=== PATIENT | male | born 1960 | race Caucasian/White ===

== ENCOUNTER 2016-10-09 14:11 | Emergency (ER) | payer OTHER ==
[~2016-10-09] VITALS: Ht 180.3 cm; Wt 71.0 kg
[~2016-10-09 14:11] MED LIST: ALPR.5 PO; ASPI81 PO; BACI500O9 TOP; CLIN150 PO; FERR300S PEG; MVI5UDC OG; NADO1TAB16 PO; SPIR25 PO
[2016-10-09 14:14] VITALS: BP 100/59; PULSE 80; RESP 16; TEMP 98.2; O2SAT 100
[2016-10-09 15:06] VITALS: BP 103/59; PULSE 74; RESP 17; O2SAT 99
[2016-10-09] MEDS ORDERED: SODIUM CHLORIDE 0.9% FLUSH 5 ML FLUSH IVF PRN (15:15)
[2016-10-09 15:19] LABS: BASOPHIL % 0.7 % (0.0-2.0); EOSINOPHIL # 0.2 TH/MM3 (0-0.4); HEMO FLAGS DIFF FINAL; LYMPH % 11.3 % (9.0-44.0); LYMPHOCYTE # 0.8 TH/MM3 (1.0-4.8); MEAN CORPUSCULAR HEMOGLOBIN 31.1 PG (27.0-34.0); MEAN CORPUSCULAR HGB CONC 34.6 % (32.0-36.0); PLATELET COUNT 155 TH/MM3 (150-450); RED CELL DISTRIBUTION WIDTH 14.7 % (11.6-17.2)
[2016-10-09] MEDS ORDERED: HYDR-3133 PO (15:44)
[2016-10-09] MEDS ORDERED: ATEN25TA PO (15:44)
[2016-10-09] MEDS ORDERED: FOLI1TAB4 PO (15:44)
[2016-10-09] MEDS ORDERED: FURO1TAB62 PO (15:44)
[2016-10-09] MEDS ORDERED: ALPR0.5T3 PO (15:44)
[2016-10-09 15:49] LABS: ALKALINE PHOSPHATASE 89 U/L (45-117); TOTAL BILIRUBIN ADULT 0.8 MG/DL (0.2-1.0)
[2016-10-09 15:50] LABS: ALT (GPT) 23 U/L (12-78); ANION GAP 6 MEQ/L (5-15); AST (GOT) 49 U/L (15-37); BICARBONATE 24.7 MEQ/L (21.0-32.0); BLOOD UREA NITROGEN 16 MG/DL (7-18); CHLORIDE 102 MEQ/L (98-107); GLOMERULAR FILTRATION RATE 86 ML/MIN (>89); SODIUM (NA) 133 MEQ/L (136-145)
[2016-10-09 15:53] LABS: POTASSIUM 4.6 MEQ/L (3.5-5.1)
[2016-10-09] MEDS ORDERED: ASPI1TAB69 PO (16:03)
[2016-10-09] MEDS ORDERED: IOHEXOL 350 MG/ML 10 ML VIAL (for RAD DIAG) IV ONE (16:54)
[2016-10-09 17:30] VITALS: BP 99/60; PULSE 72; RESP 19; O2SAT 97
--- NOTE | 2016-10-09 17:51 | RADRPT ---
EXAM DATE/TIME: 10/09/2016 16:31 [facility] COMPARISON: CT ABDOMEN & PELVIS W CONTRAST, April 09, 2014, 16:03. INDICATIONS : Abdominal pain. IV CONTRAST: 100 cc Omnipaque 350 mgI/ml IV ORAL CONTRAST: None RADIATION DOSE: 9.96 CTDIvol (mGy) MEDICAL HISTORY : Stroke. Seizure. Cardiac. Hypertension. SURGICAL HISTORY : G-tube ENCOUNTER: Initial ACUITY: 1 day PAIN SCALE: 5/10 LOCATION: Bilateral abdomen TECHNIQUE: Volumetric scanning of the abdomen and pelvis was performed. Using automated exposure control and adjustment of the mA and/or kV according to patient size, radiation dose was kept as low as reasonably achievable to obtain optimal diagnostic quality images. FINDINGS: There are cirrhotic changes at the liver. There is a recanalized periumbilical vein present. There is a moderate amount of ascites seen throughout the peroneal cavity. The spleen, pancreas, adrenal g lands and kidneys appear unremarkable. There are calcified gallstones in the gallbladder. There does appear to be a hernia in the left upper quadrant. This appears to contain mesenteric fat. There is some induration within the fat in this region. There are some small foci of air seen with in this hernia sac. Bowel in this hernia sac is not clearly identified. The etiology of the air is not known. The remaining aspect of the anterior abdominal wall appears intact. Varices are seen brandin und the distal esophagus. Varices are seen in the upper abdomen. The bowel is grossly unremarkable. The ascites does extend into the inguinal regions especially on the left. There is some degenerati ve change in the lumbar spine. Prostatic calcifications are persent. The lung bases are clear. CONCLUSION: 1. Hernia in the left upper quadrant which appears to contain mesenteric fat. There are some small foci of air. The source of the air is not clearly seen. Some degree of inflammatory change and infe ction could result in the air. Any recent intervention or communication with the skin could also be suspected. The bowel is grossly unremarkable. Bowel is not seen within this hernia. The skin does appear thickened over this region. 2. Cirrhotic liver with portal hypertension and varices. 3. Moderate ascites. Mushtaq Travis MD on October 09, 2016 at 17:01 Board Certified Radiologist. This report was verified electronically.
[2016-10-09] MEDS ORDERED: BACT800T5 PO (18:31)
--- NOTE | 2016-10-09 18:31 | PD ---
HPI Chief Complaint: GI Complaint Time Seen by Provider: 14:46 Travel History International Travel<30 days: No Contact w/Intl Traveler<30days: No Traveled to known affect area: No History of Present Illness HPI Patient is a 66-year-old male who comes in because of leakage of fluids from his G-tube site. He had a G-tube placed during an admission between July 2015 through September 2015. The tube has been removed since January. He has history of ascites, and has a paracentesis about every 3 weeks. He is having issues with leakage of fluids with the changing size of his abdomen before and after paracentesis. He was seen at [facility] yesterday and was discharged with prescription for Keflex. He came in because he is concerned he is losing too much fluid from the site. He is not having any abdominal pain. He has not had fever or chills. PFSH Past Medical History Arthritis: Yes Asthma: No Atrial Fibrillation: Yes Heart Rhythm Problems: No Cancer: No Cardiovascular Problems: Yes (A-FIB / HTN) High Cholesterol: No Chest Pain: No Congestive Heart Failure: No COPD: No Diabetes: No Diminished Hearing: No Endocrine: No Gastrointestinal Disorders: Yes GERD: Yes Genitourinary: No Hiatal Hernia: No Immune Disorder: No Musculoskeletal: Yes Neurologic: Yes Psychiatric: No Reproductive: No Respiratory: Yes Migraines: No Seizures: Yes (R/T ETOH WITHDRAWL) Sleep Apnea: Yes Thyroid Disease: No Ulcer: No Tetanus Vaccination: Unknown Influenza Vaccination: No Past Surgical History Abdominal Surgery: Yes Other Surgery: Yes (tracheostomy- GTUBE placed and removed) Social History Alcohol Use: No (quit) Tobacco Use: No Substance Use: No Allergies-Medications (Allergen,Severity, Reaction): Coded Allergies: No Known Allergies (Unverified , 10/09/16) Reported Meds & Prescriptions Reported Meds & Active Scripts Active Bactrim DS (Sulfamethoxazole-Trimethoprim) 800-160 Mg Tab 1 Tab PO BID Reported Aspirin 81 Mg Tabdr 81 Mg PO DAILY Atenolol 25 Mg Tab 25 Mg PO DAILY Lasix (Furosemide) 20 Mg Tab 20 Mg PO DAILY Hydroxyzine HCl 25 Mg Tab 25 Mg PO DAILY Alprazolam 0.5 Mg Tab 0.5 Mg PO DAILY PRN Folate (Folic Acid) 1 Mg Tab 1 Mg PO DAILY Review of Systems Except as stated in HPI: all other systems reviewed are Neg General / Constitutional: No: Fever, Chills HENT: No: Headaches, Lightheadedness Cardiovascular: No: Chest Pain or Discomfort Respiratory: No: Shortness of Breath Gastrointestinal: No: Nausea, Vomiting, Abdominal Pain Musculoskeletal: No: Myalgias Skin: Positive Lesions, No Rash Neurologic: No: Weakness, Dizziness Physical Exam Narrative GENERAL: Awake and alert in no acute distress. SKIN: Warm and dry. Raised area of erythema surrounding former G-tube site. There is a very small opening with small amount of fluid leaking from the site. No pus drainage. HEAD: Atraumatic. Normocephalic. EYES: Pupils equal and round. No scleral icterus. ENT: Mucous membranes pink and moist. NECK: Trachea midline. No JVD. CARDIOVASCULAR: Regular rate and rhythm. No murmur appreciated. RESPIRATORY: No accessory muscle use. Clear to auscultation. Breath sounds equal bilaterally. GASTROINTESTINAL: Abdomen soft, non-tender, nondistended. Umbilical hernia present, nontender to palpation. MUSCULOSKELETAL: No obvious deformities. No clubbing. No cyanosis. No edema. NEUROLOGICAL: Awake and alert. No obvious cranial nerve deficits. Motor grossly within normal limits. Normal speech. PSYCHIATRIC: Appropriate mood and affect; insight and judgment normal. Data Data Last Documented VS Vital Signs Date Time Temp Pulse Resp B/P Pulse Ox O2 Delivery O2 Flow Rate FiO2 10/09/16 18:56 71 18 124/72 97 10/09/16 17:30 Room Air 10/09/16 14:14 98.2 Orders Complete Blood Count With Diff (10/09/16 15:03) Comprehensive Metabolic Panel (10/09/16 15:03) Ct Abd/Pel W Iv Contrast(Rout) (10/09/16 15:03) Sodium Chloride 0.9% Flush (Ns Flush) (10/09/16 15:15) Iohexol 350 Inj (Omnipaque 350 Inj) (10/09/16 16:54) Labs Laboratory Tests Test 10/09/16 15:10 White Blood Count 7.0 TH/MM3 Red Blood Count 4.00 MIL/MM3 Hemoglobin 12.5 GM/DL Hematocrit 36.0 % Mean Corpuscular Volume 90.0 FL Mean Corpuscular Hemoglobin 31.1 PG Mean Corpuscular Hemoglobin 34.6 % Concent Red Cell Distribution Width 14.7 % Platelet Count 155 TH/MM3 Mean Platelet Volume 8.6 FL Neutrophils (%) (Auto) 71.0 % Lymphocytes (%) (Auto) 11.3 % Monocytes (%) (Auto) 14.0 % Eosinophils (%) (Auto) 3.0 % Basophils (%) (Auto) 0.7 % Neutrophils # (Auto) 5.0 TH/MM3 Lymphocytes # (Auto) 0.8 TH/MM3 Monocytes # (Auto) 1.0 TH/MM3 Eosinophils # (Auto) 0.2 TH/MM3 Basophils # (Auto) 0.0 TH/MM3 CBC Comment DIFF FINAL Differential Comment Sodium Level 133 MEQ/L Potassium Level 4.6 MEQ/L Chloride Level 102 MEQ/L Carbon Dioxide Level 24.7 MEQ/L Anion Gap 6 MEQ/L Blood Urea Nitrogen 16 MG/DL Creatinine 0.91 MG/DL Estimat Glomerular Filtration 86 ML/MIN Rate Random Glucose 98 MG/DL Calcium Level 7.7 MG/DL Total Bilirubin 0.8 MG/DL Aspartate Amino Transf 49 U/L (AST/SGOT) Alanine Aminotransferase 23 U/L (ALT/SGPT) Alkaline Phosphatase 89 U/L Total Protein 6.0 GM/DL Albumin 1.7 GM/DL [facility] Medical Decision Making Medical Screen Exam Complete: Yes Emergency Medical Condition: Yes Medical Record Reviewed: Yes Differential Diagnosis Cellulitis versus abscess versus fistula Narrative Course Patient is a 56-year-old male comes in due to leakage from a former G-tube site. Exam shows erythema around the site with a very small opening and scant amount of fluid leaking. IV established, labs sent. Labs show no acute abnormalities. CT of the abdomen and pelvis show some air in that area, likely due to the opening in his skin. There are no other acute abnormalities. I spoke with Dr. Cruz of GI, who says there is nothing really to do about the leakage of fluids. He suggested trying Steri-Strips. I placed Steri- Strips over the wound, and bandaged it. Patient already has a prescription for Keflex. I will add a prescription for Bactrim to cover any MRSA. Patient advised follow-up with wound care and his doctor for further management. Advised to return to the ED as needed for any worsening symptoms. Diagnosis Primary Impression: Cellulitis Qualified Code: L03.311 - Cellulitis of abdominal wall Additional Impression: Drainage from gastrostomy tube site Patient Instructions: Cellulitis (ED), General Instructions Additional Instructions: Follow up with wound care. Follow up with your doctors. Take all of your antibiotics. Return to the ED as needed for any worsening symptoms. Scripts Sulfamethoxazole-Trimethoprim (Bactrim DS)800-160 Mg Tab1 Tab PO BID #14 TAB Ref 0 Prov:Bess Valiente MD 10/09/16 Disposition: 01 DISCHARGE HOME Condition: Stable Bess Valiente MD Oct 09, 2016 18:31
[2016-10-09 18:56] VITALS: BP 124/72
== END 2016-10-09 18:57 | disposition home or self-care (01) ==
LOC: NEPA 14:11
DX: L03.311 Cellulitis of abdominal wall (principal); R23.8 Other skin changes; L53.9 Erythematous condition, unspecified; I10 Essential (primary) hypertension; I48.91 Unspecified atrial fibrillation; G47.30 Sleep apnea, unspecified; Z98.890 Other specified postprocedural states; Z87.39 Personal history of other diseases of the musculoskeletal system and connective tissue; Z87.19 Personal history of other diseases of the digestive system; Z86.69 Personal history of other diseases of the nervous system and sense organs; Z87.09 Personal history of other diseases of the respiratory system
CPT/HCPCS: 74177; 80053; 85025; 99283; Q9967

== ENCOUNTER 2016-12-06 10:09 | Emergency (ER) | payer OTHER ==
[~2016-12-06] VITALS: Ht 180.3 cm; Wt 73.6 kg
[~2016-12-06 10:09] MED LIST changes: -ALPR.5 PO; +ALPR0.5T3 PO; +ASPI1TAB69 PO; -ASPI81 PO; +ATEN25TA PO; -BACI500O9 TOP; +BACT800T5 PO; -CLIN150 PO; -FERR300S PEG; +FOLI1TAB4 PO; +FURO1TAB62 PO; +HYDR-3133 PO; -MVI5UDC OG; -NADO1TAB16 PO; -SPIR25 PO
[2016-12-06 10:11] VITALS: BP 135/70; PULSE 70; RESP 24; TEMP 97.5; O2SAT 98
--- NOTE | 2016-12-06 10:35 | PD ---
HPI Chief Complaint: Ascites Time Seen by Provider: 10:24 Travel History International Travel<30 days: No Contact w/Intl Traveler<30days: No Traveled to known affect area: No History of Present Illness HPI 56yo M with PMH of ascites presents to the ED requesting paracentesis. Pt gets paracentesis every 3 weeks for his ascites and usually goes to [facility]. States last time he went was 3 weeks ago and he did not like it because they changed their policy and left about 30% of fluid there. Denies any fever, n/v, chest pain, sob, abdominal pain, focal weakness or numbness. PFSH Past Medical History Arthritis: Yes Asthma: No Atrial Fibrillation: Yes Heart Rhythm Problems: No Cancer: No Cardiovascular Problems: Yes (A-FIB / HTN) High Cholesterol: No Chest Pain: No Congestive Heart Failure: No COPD: No Diabetes: No Diminished Hearing: No Endocrine: No Gastrointestinal Disorders: Yes GERD: Yes Genitourinary: No Hiatal Hernia: No Immune Disorder: No Musculoskeletal: Yes Neurologic: Yes Psychiatric: No Reproductive: No Respiratory: Yes Migraines: No Seizures: Yes (R/T ETOH WITHDRAWL) Sleep Apnea: Yes Thyroid Disease: No Ulcer: No Past Surgical History Abdominal Surgery: Yes Other Surgery: Yes (tracheostomy- GTUBE placed and removed) Social History Alcohol Use: No (quit) Tobacco Use: No Substance Use: No Allergies-Medications (Allergen,Severity, Reaction): Coded Allergies: No Known Allergies (Unverified , 12/06/16) Reported Meds & Prescriptions Reported Meds & Active Scripts Active Bactrim DS (Sulfamethoxazole-Trimethoprim) 800-160 Mg Tab 1 Tab PO BID Reported Aspirin 81 Mg Tabdr 81 Mg PO DAILY Atenolol 25 Mg Tab 25 Mg PO DAILY Lasix (Furosemide) 20 Mg Tab 20 Mg PO DAILY Hydroxyzine HCl 25 Mg Tab 25 Mg PO DAILY Alprazolam 0.5 Mg Tab 0.5 Mg PO DAILY PRN Folate (Folic Acid) 1 Mg Tab 1 Mg PO DAILY Review of Systems Except as stated in HPI: all other systems reviewed are Neg Physical Exam Narrative GENERAL: 56yo M not in distress. SKIN: Warm and dry. HEAD: Atraumatic. Normocephalic. CARDIOVASCULAR: Regular rate and rhythm. No murmur appreciated. RESPIRATORY: No accessory muscle use. Clear to auscultation. Breath sounds equal bilaterally. GASTROINTESTINAL: Abdomen soft, distended. +epigastric and periumbilical hernia , both soft and reducible. No tenderness to palpation. No rebound tenderness or guarding. MUSCULOSKELETAL: No obvious deformities. No clubbing. No cyanosis. No edema. NEUROLOGICAL: Awake and alert. No obvious cranial nerve deficits. Motor grossly within normal limits. Normal speech. PSYCHIATRIC: Appropriate mood and affect; insight and judgment normal. Data Data Last Documented VS Vital Signs Date Time Temp Pulse Resp B/P Pulse Ox O2 Delivery O2 Flow Rate FiO2 12/06/16 10:11 97.5 70 24 135/70 98 Room Air Orders Complete Blood Count With Diff (12/06/16 10:34) Basic Metabolic Panel (Bmp) (12/06/16 10:34) Prothrombin Time / Inr (Pt) (12/06/16 10:34) Act Partial Throm Time (Ptt) (12/06/16 10:34) Labs Laboratory Tests Test 12/06/16 12/06/16 10:20 10:50 Sodium Level 137 MEQ/L Potassium Level 4.1 MEQ/L Chloride Level 104 MEQ/L Carbon Dioxide Level 26.7 MEQ/L Anion Gap 6 MEQ/L Blood Urea Nitrogen 10 MG/DL Creatinine 0.98 MG/DL Estimat Glomerular Filtration 79 ML/MIN Rate Random Glucose 160 MG/DL Calcium Level 8.1 MG/DL White Blood Count 4.0 TH/MM3 Red Blood Count 3.94 MIL/MM3 Hemoglobin 11.8 GM/DL Hematocrit 34.6 % Mean Corpuscular Volume 87.9 FL Mean Corpuscular Hemoglobin 29.9 PG Mean Corpuscular Hemoglobin 34.0 % Concent Red Cell Distribution Width 14.1 % Platelet Count 163 TH/MM3 Mean Platelet Volume 8.7 FL Neutrophils (%) (Auto) 62.4 % Lymphocytes (%) (Auto) 16.5 % Monocytes (%) (Auto) 11.7 % Eosinophils (%) (Auto) 8.6 % Basophils (%) (Auto) 0.8 % Neutrophils # (Auto) 2.5 TH/MM3 Lymphocytes # (Auto) 0.7 TH/MM3 Monocytes # (Auto) 0.5 TH/MM3 Eosinophils # (Auto) 0.3 TH/MM3 Basophils # (Auto) 0.0 TH/MM3 CBC Comment DIFF FINAL Differential Comment Prothrombin Time 10.7 SEC Prothromb Time International 1.0 RATIO Ratio Activated Partial 26.2 SEC Thromboplast Time MDM Medical Decision Making Medical Screen Exam Complete: Yes Emergency Medical Condition: Yes Interpretation(s) Laboratory Tests Test 12/06/16 12/06/16 10:20 10:50 Sodium Level 137 MEQ/L (136-145) Potassium Level 4.1 MEQ/L (3.5-5.1) Chloride Level 104 MEQ/L (98-107) Carbon Dioxide Level 26.7 MEQ/L (21.0-32.0) Anion Gap 6 MEQ/L (5-15) Blood Urea Nitrogen 10 MG/DL (7-18) Creatinine 0.98 MG/DL (0.60-1.30) Estimat Glomerular Filtration 79 ML/MIN (>89) Rate Random Glucose 160 MG/DL (74-106) Calcium Level 8.1 MG/DL (8.5-10.1) White Blood Count 4.0 TH/MM3 (4.0-11.0) Red Blood Count 3.94 MIL/MM3 (4.50-5.90) Hemoglobin 11.8 GM/DL (13.0-17.0) Hematocrit 34.6 % (39.0-51.0) Mean Corpuscular Volume 87.9 FL (80.0-100.0) Mean Corpuscular Hemoglobin 29.9 PG (27.0-34.0) Mean Corpuscular Hemoglobin 34.0 % Concent (32.0-36.0) Red Cell Distribution Width 14.1 % (11.6-17.2) Platelet Count 163 TH/MM3 (150-450) Mean Platelet Volume 8.7 FL (7.0-11.0) Neutrophils (%) (Auto) 62.4 % (16.0-70.0) Lymphocytes (%) (Auto) 16.5 % (9.0-44.0) Monocytes (%) (Auto) 11.7 % (0.0-8.0) Eosinophils (%) (Auto) 8.6 % (0.0-4.0) Basophils (%) (Auto) 0.8 % (0.0-2.0) Neutrophils # (Auto) 2.5 TH/MM3 (1.8-7.7) Lymphocytes # (Auto) 0.7 TH/MM3 (1.0-4.8) Monocytes # (Auto) 0.5 TH/MM3 (0-0.9) Eosinophils # (Auto) 0.3 TH/MM3 (0-0.4) Basophils # (Auto) 0.0 TH/MM3 (0-0.2) CBC Comment DIFF FINAL Differential Comment Prothrombin Time 10.7 SEC (9.8-11.6) Prothromb Time International 1.0 RATIO Ratio Activated Partial 26.2 SEC Thromboplast Time (24.3-30.1) Differential Diagnosis Ascites from alcoholic cirrhosis Narrative Course 56yo M with ascites and frequent paracentesis presents to the ED requesting paracentesis. Last paracentesis was 3 weeks ago at [facility]. Pt denies any fever or abdominal pain. He is well appearing with normal VS. Discussed with procedure tech and wrote patient a prescription order. Also made a copy of the order for the motion picture scene builder and gave patient the phone number to schedule outpatient paracentesis. Labs reviewed, no leukocytosis. H/H at baseline. Platelet count normal. Coags normal. Informed pt to call to schedule outpatient paracentesis. Return precautions given. Diagnosis Primary Impression: Ascites Qualified Code: R18.8 - Other ascites Patient Instructions: General Instructions Departure Forms: Tests/Procedures Additional Instructions: Please call [phone] to schedule an outpatient paracentesis. Please bring the order with you. Return to the ED if you have fever, abdominal pain, vomiting or any other concerning symptoms. Med/Other Pt SpecificInfo: No Change to Meds Disposition: 01 DISCHARGE HOME Condition: Stable Beverly Fisherie DO Dec 06, 2016 10:35
[2016-12-06 11:26] LABS: AUTOMATED NEUTROPHIL # 2.5 TH/MM3 (1.8-7.7); BASOPHIL % 0.8 % (0.0-2.0); EOSINOPHIL # 0.3 TH/MM3 (0-0.4); EOSINOPHIL % 8.6 % (0.0-4.0); HEMATOCRIT 34.6 % (39.0-51.0); HEMO FLAGS DIFF FINAL; LYMPH % 16.5 % (9.0-44.0); LYMPHOCYTE # 0.7 TH/MM3 (1.0-4.8); MEAN CELL VOLUME 87.9 FL (80.0-100.0); MEAN CORPUSCULAR HEMOGLOBIN 29.9 PG (27.0-34.0); MONO % 11.7 % (0.0-8.0); NEUT % 62.4 % (16.0-70.0); PLATELET COUNT 163 TH/MM3 (150-450); RED BLOOD COUNT 3.94 MIL/MM3 (4.50-5.90); RED CELL DISTRIBUTION WIDTH 14.1 % (11.6-17.2)
[2016-12-06 11:35] LABS: APTT (PATIENT) 26.2 SEC (24.3-30.1); PROTHROMBIN TIME - PATIENT 10.7 SEC (9.8-11.6)
[2016-12-06 11:43] LABS: BICARBONATE 26.7 MEQ/L (21.0-32.0); POTASSIUM 4.1 MEQ/L (3.5-5.1)
== END 2016-12-06 12:34 | disposition home or self-care (01) ==
LOC: NEPA 10:09
DX: R18.8 Other ascites (principal); I48.91 Unspecified atrial fibrillation; I10 Essential (primary) hypertension
CPT/HCPCS: 80048; 85025; 85610; 85730; 99283

== ENCOUNTER 2016-12-07 09:01 | Emergency (ER) | payer OTHER ==
[~2016-12-07] VITALS: Ht 180.3 cm; Wt 73.0 kg
[2016-12-07 09:02] VITALS: BP 128/82; PULSE 76; RESP 16; TEMP 98; O2SAT 97
[2016-12-07 09:17] VITALS: BP 132/79; PULSE 66; RESP 16; O2SAT 100
--- NOTE | 2016-12-07 09:24 | PD ---
HPI Chief Complaint: GI Complaint Time Seen by Provider: 09:10 Travel History International Travel<30 days: No Contact w/Intl Traveler<30days: No Traveled to known affect area: No History of Present Illness HPI The patient is a 56-year-old male who presents to the emergency department for paracentesis. The patient has a history of cirrhosis with ascites. The patient was seen in emergency department yesterday and provided a prescription for outpatient paracentesis, however, he did not call to make an appointment. Patient does complain of increased abdominal swelling, distention , and pain. He does note a history of prior umbilical hernia as well as previous G-tube placement, with swelling secondary to the ascites. He denies any fever, chills, or sweats. The patient does not currently have a primary physician and is not followed on an outpatient basis by supply chain project manager. The patient's symptoms are moderate, exacerbated by history of cirrhosis secondary to chronic alcohol abuse, and alleviated in the past with paracentesis. PFSH Past Medical History Arthritis: Yes Asthma: No Atrial Fibrillation: Yes Heart Rhythm Problems: No Cancer: No Cardiovascular Problems: Yes (A-FIB / HTN) High Cholesterol: No Chest Pain: No Congestive Heart Failure: No COPD: No Diabetes: No Diminished Hearing: No Endocrine: No Gastrointestinal Disorders: Yes GERD: Yes Genitourinary: No Headaches: No Hiatal Hernia: No Hypertension: No Immune Disorder: No Implanted Vascular Access Dvce: No Musculoskeletal: Yes Neurologic: Yes Psychiatric: No Reproductive: No Respiratory: Yes Immunizations Current: No Migraines: No Seizures: Yes (R/T ETOH WITHDRAWL) Sleep Apnea: Yes Thyroid Disease: No Ulcer: No Past Surgical History Abdominal Surgery: Yes Other Surgery: Yes (tracheostomy- GTUBE placed and removed) Social History Alcohol Use: No (quit) Tobacco Use: No Substance Use: No Allergies-Medications (Allergen,Severity, Reaction): Coded Allergies: No Known Allergies (Unverified , 12/06/16) Reported Meds & Prescriptions Reported Meds & Active Scripts Active Reported Aspirin 81 Mg Tabdr 81 Mg PO DAILY Atenolol 25 Mg Tab 25 Mg PO DAILY Lasix (Furosemide) 20 Mg Tab 20 Mg PO DAILY Hydroxyzine HCl 25 Mg Tab 25 Mg PO DAILY Folate (Folic Acid) 1 Mg Tab 1 Mg PO DAILY Review of Systems Except as stated in HPI: all other systems reviewed are Neg General / Constitutional: No: Fever Cardiovascular: No: Chest Pain or Discomfort Respiratory: No: Shortness of Breath Gastrointestinal: Positive: Abdominal Pain (as noted in the history of present illness), No: Nausea, Vomiting Musculoskeletal: Positive: Edema Physical Exam Narrative GENERAL: Awake, alert, 56-year-old male who appears his stated age and is in no acute respiratory distress. SKIN: Warm and dry. HEAD: Atraumatic. Normocephalic. EYES: No injection or drainage. ENT: No nasal bleeding or discharge. Mucous membranes pink and moist. NECK: Trachea midline. No JVD. CARDIOVASCULAR: Regular rate and rhythm. No murmur appreciated. RESPIRATORY: No accessory muscle use. Clear to auscultation. Breath sounds equal bilaterally. GASTROINTESTINAL: Abdomen is distended with positive fluid wave test. Periumbilical hernia with edema. Circular area of swelling in the super aspect of the abdomen from previous G-tube with fluid. MUSCULOSKELETAL: No obvious deformities. No clubbing. No cyanosis. No edema. NEUROLOGICAL: Awake and alert. No obvious cranial nerve deficits. Motor grossly within normal limits. Normal speech. PSYCHIATRIC: Appropriate mood and affect; insight and judgment normal. Data Data Last Documented VS Vital Signs Date Time Temp Pulse Resp B/P Pulse Ox O2 Delivery O2 Flow Rate FiO2 12/07/16 09:17 66 16 132/79 100 Room Air 12/07/16 09:02 98.0 Orders Ed Poc Ultrasound (12/07/16 ) Albumin (12/07/16 09:15) Invasive Rad Dept Consult (12/07/16 ) Labs Laboratory Tests Test 12/07/16 09:27 Albumin 2.1 GM/DL MDM Medical Decision Making Medical Screen Exam Complete: Yes Emergency Medical Condition: Yes Medical Record Reviewed: Yes Interpretation(s) Laboratory Tests Test 12/07/16 09:27 Albumin 2.1 GM/DL Differential Diagnosis Differential diagnoses includes end-stage liver disease, cirrhosis, ascites, hypoalbuminemia, hyponatremia. Narrative Course I reviewed the patient's labs from yesterday, platelets and coags are unremarkable. Albumin level was sent to lab and IV was established. Order was placed for and invasive radiology to perform therapeutic paracentesis if possible. I discussed the patient with interventional radiology, they have set the patient up for an appointment tomorrow at 8 AM at the [facility]. The patient is advised there to be early to register further therapeutic paracentesis. Patient is stable for outpatient paracentesis tomorrow. Diagnosis Primary Impression: Ascites Qualified Code: K70.31 - Ascites due to alcoholic cirrhosis Patient Instructions: General Instructions Additional Instructions: Follow-up with a primary physician and/or supply chain project manager. No alcohol. Monitor sodium intake. Monitor weight. Show up at the registration desk at [facility] tomorrow at 8 AM for outpatient therapeutic paracentesis. Med/Other Pt SpecificInfo: No Change to Meds Disposition: 01 DISCHARGE HOME Condition: Stable Dexter Morales MD Dec 07, 2016 09:24
== END 2016-12-07 10:32 | disposition home or self-care (01) ==
LOC: NEPA 09:01
DX: K70.31 Alcoholic cirrhosis of liver with ascites (principal)
CPT/HCPCS: 82040; 99284

== ENCOUNTER 2016-12-08 07:53 | Day surgery (SDC) | payer OTHER ==
[2016-12-08 09:06] VITALS: BP 118/71; PULSE 72; RESP 16; TEMP 97; O2SAT 98
[2016-12-08 11:20] VITALS: BP 95/60; PULSE 64; RESP 16; TEMP 97.6; O2SAT 98
[2016-12-08 11:45] VITALS: BP 97/61; PULSE 63; RESP 16; O2SAT 98
[2016-12-08] MEDS ORDERED: ALBUMIN HUMAN 25% 75 GM IV ONE (11:45)
[2016-12-08 12:00] VITALS: BP 100/62; PULSE 62; RESP 16; O2SAT 98
[2016-12-08 12:15] VITALS: BP 107/65; PULSE 62; RESP 16; O2SAT 98
--- NOTE | 2016-12-08 12:37 | RADRPT ---
EXAM DATE/TIME: 12/08/2016 08:01 [facility] COMPARISON: US GUIDED ABD PARACENTESIS, September 01, 2015, 10:11. INDICATIONS : Ascites. MEDICAL HISTORY : Hypertension. Gastroesophageal reflux disease. Hernia, umbilical. CVA. Seizures. ETOH withdrawal. Shaista b. Sleep apnea. Dyspnea. Arthritis. SURGICAL HISTORY : Tracheostomy. Gtube placed and removed. Paracentesis. ENCOUNTER: Subsequent ACUITY: 3 months PAIN SCORE: 6/10 LOCATION: Right lower quadrant FLUID: Total volume of 14,050 cc of clear, yellow fluid was removed. Fluid was discarded. Paracentesis was therapeutic only. Post procedure scanning reveals no hematoma or other complication. TECHNIQUE: 1. Ultrasound guidance for abdominal paracentesis. 2. Paracentesis. The risks, benefits, and alternatives to ultrasound guided paracentesis were explained to the patient in detail including the risk of bleeding and infection. Written and verbal informed consent was obt ained. With the patient on the ultrasound table, ultrasound imaging was used to select the most appropriate approach for paracentesis. Overlying skin was prepped and draped in the usual sterile fashion and wi th a local anesthetic, a dermatotomy was made with an 11 blade scalpel. A 6 [place] Gbt-[id number]-[id number] ca theter was introduced into the peritoneal cavity and fluid was collected. The patient tolerated the procedure well and left the ultrasound suite in stable condition. CONCLUSION: Uncomplicated ultrasound guided paracentesis. Corbin Rendon MD on December 08, 2016 at 12:36 Board Certified Radiologist. This report was verified electronically.
== END 2016-12-08 13:30 | disposition home or self-care (01) ==
LOC: HRAD 07:53 → HRIP 07:56 → HRAD 13:30
PROVIDERS: ATTEND Emergency Medicine
DX: R18.8 Other ascites (principal); I10 Essential (primary) hypertension; K21.9 Gastro-esophageal reflux disease without esophagitis; Z86.73 Personal history of transient ischemic attack (TIA), and cerebral infarction without residual deficits; I48.91 Unspecified atrial fibrillation
CPT/HCPCS: 49083; 96365; C1729; P9047

== ENCOUNTER 2016-12-27 08:39 | Emergency (ER) | payer OTHER ==
[2016-12-27] VITALS (7 sets, daily range): BP systolic 117–184; BP diastolic 64–86; PULSE 59–90; RESP 12–16; TEMP 97.5–98.1; O2SAT 95–100
[~2016-12-27] VITALS: Ht 180.3 cm; Wt 72.7 kg
[~2016-12-27 08:39] MED LIST changes: -ALPR0.5T3 PO; -BACT800T5 PO
[2016-12-27] MEDS ORDERED: SODIUM CHLORIDE 0.9% FLUSH 10 ML FLUSH IV FLUSH PRN (09:00)
[2016-12-27 09:40] LABS: APTT (PATIENT) 26.8 SEC (24.3-30.1); PROTHROMBIN TIME - PATIENT 11.2 SEC (9.8-11.6)
--- NOTE | 2016-12-27 09:59 | RADRPT ---
EXAM DATE/TIME: 12/27/2016 09:14 [facility] COMPARISON: CHEST SINGLE AP, September 04, 2015, 19:01. INDICATIONS : Shortness of breath. MEDICAL HISTORY : Hypertension. Stroke. Arthritis. GERD. A-Fib. SURGICAL HISTORY : None. ENCOUNTER: Initial ACUITY: >1 year PAIN SCORE: 0/10 LOCATION: Bilateral chest FINDINGS: A single view of the chest demonstrates the lungs to be symmetrically aerated without evidence of mas s, infiltrate or effusion. The cardiomediastinal contours are unremarkable. Osseous structures are intact. CONCLUSION: No acute disease. Watson Bermeo MD on December 27, 2016 at 9:57 Board Certified Radiologist. This report was verified electronically.
[2016-12-27 10:03] LABS: ALKALINE PHOSPHATASE 105 U/L (45-117); ALT (GPT) 26 U/L (12-78); ANION GAP 6 MEQ/L (5-15); AST (GOT) 66 U/L (15-37); BICARBONATE 25.7 MEQ/L (21.0-32.0); BLOOD UREA NITROGEN 8 MG/DL (7-18); CHLORIDE 105 MEQ/L (98-107); GLOMERULAR FILTRATION RATE 78 ML/MIN (>89); SODIUM (NA) 137 MEQ/L (136-145); TOTAL BILIRUBIN ADULT 0.4 MG/DL (0.2-1.0)
[2016-12-27 10:10] LABS: AUTOMATED NEUTROPHIL # 2.1 TH/MM3 (1.8-7.7); BASOPHIL % 0.9 % (0.0-2.0); EOSINOPHIL # 0.2 TH/MM3 (0-0.4); EOSINOPHIL % 4.6 % (0.0-4.0); HEMATOCRIT 32.1 % (39.0-51.0); HEMO FLAGS DIFF FINAL; LYMPH % 18.3 % (9.0-44.0); LYMPHOCYTE # 0.6 TH/MM3 (1.0-4.8); MEAN CELL VOLUME 86.4 FL (80.0-100.0); MEAN CORPUSCULAR HEMOGLOBIN 29.2 PG (27.0-34.0); MEAN CORPUSCULAR HGB CONC 33.8 % (32.0-36.0); MONO % 16.5 % (0.0-8.0); NEUT % 59.7 % (16.0-70.0); PLATELET COUNT 163 TH/MM3 (150-450); RED BLOOD COUNT 3.71 MIL/MM3 (4.50-5.90); RED CELL DISTRIBUTION WIDTH 14.2 % (11.6-17.2); WHITE BLOOD COUNT 3.5 TH/MM3 (4.0-11.0)
[2016-12-27 10:12] LABS: POTASSIUM 4.5 MEQ/L (3.5-5.1)
[2016-12-27 10:41] LABS: BACTERIA, URINE MOD /hpf; BLOOD, URINE NEG (NEG); CALCIUM OXALATE CRYSTALS,URINE MOD /hpf; COMMENT (UR) CULTURE INDICATED; CULTURE IF INDICATED CULTURE INDICATED; GLUCOSE,URINE NEG (NEG); HYALINE CAST, URINE 2 /lpf (RARE); KETONE, URINE NEG (NEG); MUCUS URINE MANY /lpf (OCC); NITRITE,URINE NEG (NEG); SQUAMOUS EPITHELIAL CELL URINE <1 /hpf (0-5); URINE COLOR DARK-YELLOW (YELLW/STRAW)
--- NOTE | 2016-12-27 11:45 | RADRPT ---
EXAM DATE/TIME: 12/27/2016 11:15 [facility] COMPARISON: CT ABDOMEN & PELVIS W CONTRAST, October 09, 2016, 16:31. INDICATIONS : Evaluate ascites and a soft tissue abdomen wall mass. IV CONTRAST: 70 cc Omnipaque 350 (iohexol) IV ORAL CONTRAST: No oral contrast ingested. RADIATION DOSE: 14.36 CTDIvol (mGy) MEDICAL HISTORY : Cardiovascular disease. Seizures. Cirrhosis.CVA SURGICAL HISTORY : None. ENCOUNTER: Initial ACUITY: 2 days PAIN SCALE: 7/10 LOCATION: Abdoman TECHNIQUE: Volumetric scanning of the abdomen and pelvis was performed. Using automated exposure control and ad justment of the mA and/or kV according to patient size, radiation dose was kept as low as reasonably achievable to obtain optimal diagnostic quality images. FINDINGS: There is a small pericardial effusion, and marked ascites throughout the abdomen and pelvis with abdominal distention. There is fluid extending into the left inguinal canal into the scrotum. Prosta tic calcifications are noted. Urinary bladder unremarkable. There is no evidence of bowel obstruction . Atherosclerotic calcifications of the aorta and iliac vessels are seen. A cirrhotic appearing liver is noted. The portal vein is patent. Mild splenomegaly. There is a ventral hernia containing fat, fl uid and a small amount of transverse colon anterior border. The hernia sac measures 13 x 6 cm in delgado sverse AP dimension. The anterior abdominal wall defect measures 4.5 cm in transverse dimension. The osseous structures demonstrate degenerative changes of the spine. There is atelectasis at the left eleazar ng base. CONCLUSION: 1. Marked amount of ascites is noted with associated abdominal distention. 2. Ventral hernia defect as described above. 3. Atherosclerosis. 4. Cirrhosis. Watson Bermeo MD on December 27, 2016 at 11:41 Board Certified Radiologist. This report was verified electronically.
[2016-12-27] MEDS ORDERED: IOHEXOL 350 MG/ML 10 ML VIAL (for RAD DIAG) IV ONE (11:50)
--- NOTE | 2016-12-27 12:33 | PD ---
HPI Chief Complaint: Abdominal Pain Time Seen by Provider: 08:57 Travel History International Travel<30 days: No Contact w/Intl Traveler<30days: No Traveled to known affect area: No History of Present Illness HPI 56-year-old male complains of abdominal pain, abdominal bloating patient has history of liver cirrhosis with ascites. Patient also has history of umbilical hernia. Patient states that he has increasing the size of the hernia and increased abdominal discomfort and bloating for the past few days. Patient denies any headache. Patient denies any chest pain or shortness of breath. Patient stated he has increasing abdominal discomfort. Patient denies any focal weakness or numbness of the extremity. PFSH Past Medical History Arthritis: Yes Asthma: No Atrial Fibrillation: Yes Heart Rhythm Problems: No Cancer: No Cardiovascular Problems: Yes (A-FIB / HTN) High Cholesterol: No Chest Pain: No Congestive Heart Failure: No Cirrhosis: Yes COPD: No Diabetes: No Diminished Hearing: No Endocrine: No Gastrointestinal Disorders: Yes GERD: Yes Genitourinary: No Headaches: No Hiatal Hernia: No Hypertension: No Immune Disorder: No Implanted Vascular Access Dvce: No Musculoskeletal: Yes Neurologic: Yes Psychiatric: No Reproductive: No Respiratory: Yes Immunizations Current: No Migraines: No Seizures: Yes (R/T ETOH WITHDRAWL) Sleep Apnea: Yes Thyroid Disease: No Ulcer: No Tetanus Vaccination: Unknown Past Surgical History Abdominal Surgery: Yes Other Surgery: Yes (tracheostomy- GTUBE placed and removed) Social History Alcohol Use: No Tobacco Use: No Substance Use: No Allergies-Medications (Allergen,Severity, Reaction): Coded Allergies: No Known Allergies (Unverified , 12/06/16) Reported Meds & Prescriptions Reported Meds & Active Scripts Active No Active Prescriptions or Reported Medications Review of Systems General / Constitutional: No: Fever Eyes: No: Visual changes HENT: No: Headaches Cardiovascular: No: Chest Pain or Discomfort Respiratory: No: Shortness of Breath Gastrointestinal: Positive: Abdominal Pain Genitourinary: No: Dysuria Musculoskeletal: No: Pain Skin: No Rash Neurologic: No: Weakness Psychiatric: No: Depression Endocrine: No: Polydipsia Hematologic/Lymphatic: No: Easy Bruising Physical Exam Narrative GENERAL: Well-nourished, well-developed patient. SKIN: Focused skin assessment warm/dry. HEAD: Normocephalic. EYES: No scleral icterus. No injection or drainage. NECK: Supple, trachea midline. No JVD or lymphadenopathy. CARDIOVASCULAR: Regular rate and rhythm without murmurs, gallops, or rubs. RESPIRATORY: Breath sounds equal bilaterally. No accessory muscle use. GASTROINTESTINAL: The abdomen is distended. Patient has a large soft tissue mass epigastric area and a vehicle hernia. Nontender on palpation. No discharge noted. MUSCULOSKELETAL: No cyanosis, or edema. BACK: Nontender without obvious deformity. No CVA tenderness. Neurologic exam normal. Data Data Last Documented VS Vital Signs Date Time Temp Pulse Resp B/P Pulse Ox O2 Delivery O2 Flow Rate FiO2 12/27/16 19:36 71 16 125/71 99 Room Air 12/27/16 17:44 98.0 Orders Complete Blood Count With Diff (12/27/16 08:58) Comprehensive Metabolic Panel (12/27/16 08:58) Lipase (12/27/16 08:58) Prothrombin Time / Inr (Pt) (12/27/16 08:58) Act Partial Throm Time (Ptt) (12/27/16 08:58) Urinalysis - C+S If Indicated (12/27/16 08:58) Ct Abd/Pel W Iv Contrast(Rout) (12/27/16 08:58) Iv Access Insert/Monitor (12/27/16 08:58) Ecg Monitoring (12/27/16 08:58) Oximetry (12/27/16 08:58) Sodium Chloride 0.9% Flush (Ns Flush) (12/27/16 09:00) Chest, Single Ap (12/27/16 08:58) Ammonia (12/27/16 08:58) Urine Culture (12/27/16 10:05) Iohexol 350 Inj (Omnipaque 350 Inj) (12/27/16 11:50) Us Guided Abd Paracentesis (12/27/16 ) Electrocardiogram (12/27/16 13:31) Albumin 25% Inj (Albumin 25% Inj) (12/27/16 17:15) Labs Laboratory Tests Test 12/27/16 12/27/16 12/27/16 09:05 09:50 10:05 Prothrombin Time 11.2 SEC Prothromb Time International 1.0 RATIO Ratio Activated Partial 26.8 SEC Thromboplast Time Sodium Level 137 MEQ/L Potassium Level 4.5 MEQ/L Chloride Level 105 MEQ/L Carbon Dioxide Level 25.7 MEQ/L Anion Gap 6 MEQ/L Blood Urea Nitrogen 8 MG/DL Creatinine 0.99 MG/DL Estimat Glomerular Filtration 78 ML/MIN Rate Random Glucose 120 MG/DL Calcium Level 8.1 MG/DL Total Bilirubin 0.4 MG/DL Aspartate Amino Transf 66 U/L (AST/SGOT) Alanine Aminotransferase 26 U/L (ALT/SGPT) Alkaline Phosphatase 105 U/L Ammonia 31 MCMOL/L Total Protein 6.5 GM/DL Albumin 2.4 GM/DL Lipase 117 U/L White Blood Count 3.5 TH/MM3 Red Blood Count 3.71 MIL/MM3 Hemoglobin 10.8 GM/DL Hematocrit 32.1 % Mean Corpuscular Volume 86.4 FL Mean Corpuscular Hemoglobin 29.2 PG Mean Corpuscular Hemoglobin 33.8 % Concent Red Cell Distribution Width 14.2 % Platelet Count 163 TH/MM3 Mean Platelet Volume 8.6 FL Neutrophils (%) (Auto) 59.7 % Lymphocytes (%) (Auto) 18.3 % Monocytes (%) (Auto) 16.5 % Eosinophils (%) (Auto) 4.6 % Basophils (%) (Auto) 0.9 % Neutrophils # (Auto) 2.1 TH/MM3 Lymphocytes # (Auto) 0.6 TH/MM3 Monocytes # (Auto) 0.6 TH/MM3 Eosinophils # (Auto) 0.2 TH/MM3 Basophils # (Auto) 0.0 TH/MM3 CBC Comment DIFF FINAL Differential Comment Urine Color DARK-YELLOW Urine Turbidity HAZY Urine pH 6.0 Urine Specific Rush 1.029 Urine Protein 30 mg/dL Urine Glucose (UA) NEG mg/dL Urine Ketones NEG mg/dL Urine Occult Blood NEG Urine Nitrite NEG Urine Bilirubin NEG Urine Urobilinogen 2.0 MG/DL Urine Leukocyte Esterase NEG Urine RBC 2 /hpf Urine WBC 4 /hpf Urine Squamous Epithelial <1 /hpf Cells Urine Calcium Oxalate Crystals MOD /hpf Urine Bacteria MOD /hpf Urine Hyaline Casts 2 /lpf Urine Mucus MANY /lpf Microscopic Urinalysis Comment CULTURE INDICATED MDM Medical Decision Making Medical Screen Exam Complete: Yes Emergency Medical Condition: Yes Interpretation(s) Last Impressions Chest X-Ray 12/27/16 0858 Signed Impressions: Service Date/Time: Tuesday, December 27, 2016 09:14 - CONCLUSION: No acute disease. Watson Bermeo MD Abdomen/Pelvis CT 12/27/16 0858 Signed Impressions: Service Date/Time: Tuesday, December 27, 2016 11:15 - CONCLUSION: 1. Marked amount of ascites is noted with associated abdominal distention. 2. Ventral hernia defect as described above. 3. Atherosclerosis. 4. Cirrhosis. Watson Bermeo MD 12:30 PM. CBC WBC 3.5. Hemoglobin 10.8 hematocrit 32.1. Platelet 163. Glucose 120. Calcium 8.1. AST 66. Ammonia 31. INR 1.0. UA is negative. Differential Diagnosis Differential diagnosis including gastritis, PUD, pancreatitis, cholecystitis, colitis, UTI, pyelonephritis, ascites. Narrative Course 56-year-old male with abdominal pain and abdominal bloating and history of liver cirrhosis with ascites. Patient had paracentesis done by IR. Diagnosis Primary Impression: Ascites Patient Instructions: General Instructions Additional Instructions: Follow-up with personal physician. Med/Other Pt SpecificInfo: No Change to Meds Scripts No Active Prescriptions or Reported Meds Disposition: 01 DISCHARGE HOME Condition: Stable Raj Sanchez MD Dec 27, 2016 12:33
[2016-12-27] MEDS ORDERED: ALBUMIN HUMAN 25% 75 GM IV ONE (17:15)
--- NOTE | 2016-12-27 17:22 | RADRPT ---
EXAM DATE/TIME: 12/27/2016 14:47 [facility] COMPARISON: CT ABDOMEN & PELVIS W CONTRAST, December 27, 2016, 11:15. US GUIDED ABD PARACENTESIS, December 08, 2016, 8 :01. INDICATIONS : Ascites. MEDICAL HISTORY : Hypertension. Gastroesophageal reflux disease. Seizures. ETOH withdrawal. Afib. Sleep apnea. Hernia, umbilical. Dyspnea. Arthritis. CVA. SURGICAL HISTORY : Tracheostomy. Gtube placed and removed. Paracentesis. ENCOUNTER: Subsequent ACUITY: 2 weeks PAIN SCORE: 0/10 LOCATION: Right lower quadrant FLUID: Total volume of 16,800 cc of clear, yellow fluid was removed. Fluid was discarded. Paracentesis was therapeutic only. Post procedure scanning reveals no hematoma or other complication. TECHNIQUE: 1. Ultrasound guidance for abdominal paracentesis. 2. Paracentesis. The risks, benefits, and alternatives to ultrasound guided paracentesis were explained to the patient in detail including the risk of bleeding and infection. Written and verbal informed consent was obt ained. With the patient on the ultrasound table, ultrasound imaging was used to select the most appropriate approach for paracentesis. Overlying skin was prepped and draped in the usual sterile fashion and wi th a local anesthetic, a dermatotomy was made with an 11 blade scalpel. A 6 Maori [id number] ca theter was introduced into the peritoneal cavity and fluid was collected. The patient tolerated the procedure well and left the ultrasound suite in stable condition. CONCLUSION: Uncomplicated ultrasound guided paracentesis. Mushtaq Alexis MD on December 27, 2016 at 17:20 Board Certified Radiologist. This report was verified electronically.
--- NOTE | 2016-12-28 11:55 | EKG ---
Date Performed: 12/27/2016 Time Performed: 08:58:48 PTAGE: 56 years EKG: Sinus rhythm PAC's ABNORMAL RHYTHM ECG NO PREVIOUS TRACING DOCTOR: Shahid Foy Interpretating Date/Time 12/28/2016 11:49:14
== END 2016-12-28 00:51 | disposition home or self-care (01) ==
LOC: NEPC 08:39 → NEDA 17:17 → NEPC 17:17
DX: R18.8 Other ascites (principal); K74.60 Unspecified cirrhosis of liver; I48.91 Unspecified atrial fibrillation; K43.9 Ventral hernia without obstruction or gangrene; R94.31 Abnormal electrocardiogram [ECG] [EKG]
CPT/HCPCS: 49083; 71010; 74177; 80053; 81001; 82140; 83690; 85025; 85610; 85730; 87086; 93005; 99284; C1729; P9047; Q9967

== ENCOUNTER 2017-01-13 08:10 | Emergency (ER) | payer OTHER ==
[2017-01-13 08:12] VITALS: BP 143/80; PULSE 70; RESP 20; TEMP 97.7; O2SAT 97
--- NOTE | 2017-01-13 08:30 | PD ---
HPI Chief Complaint: Abdominal Pain Time Seen by Provider: 08:16 Travel History International Travel<30 days: No Contact w/Intl Traveler<30days: No Traveled to known affect area: No History of Present Illness HPI The patient is a 57-year-old male who presents to the emergency department for abdominal distention. The patient has a history of cirrhosis secondary to alcohol use, has had multiple paracentesis performed in the past. Patient notes increasing abdominal pain and distention over the last several days. The patient denies any nausea, vomiting, or diarrhea. The patient is requesting paracentesis. 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 He does note increasing abdominal distention and weight gain, mostly over the abdominal cavity. He denies any acute chest pain or shortness of breath. Symptoms are moderate, possibly exacerbated by cirrhosis and ascites , and alleviated in the past with paracentesis. PFSH Past Medical History Arthritis: Yes Asthma: No Atrial Fibrillation: Yes Heart Rhythm Problems: No Cancer: No Cardiovascular Problems: Yes (A-FIB / HTN) High Cholesterol: No Chest Pain: No Congestive Heart Failure: No Cirrhosis: Yes COPD: No Diabetes: No Diminished Hearing: No Endocrine: No Gastrointestinal Disorders: Yes GERD: Yes Genitourinary: No Headaches: No Hiatal Hernia: No Hypertension: No Immune Disorder: No Implanted Vascular Access Dvce: No Musculoskeletal: Yes Neurologic: Yes Psychiatric: No Reproductive: No Respiratory: Yes Immunizations Current: No Migraines: No Seizures: Yes (R/T ETOH WITHDRAWL) Sleep Apnea: Yes Thyroid Disease: No Ulcer: No Past Surgical History Abdominal Surgery: Yes Other Surgery: Yes (tracheostomy- GTUBE placed and removed) Social History Alcohol Use: No (FORMER) Tobacco Use: No Substance Use: No Allergies-Medications (Allergen,Severity, Reaction): Coded Allergies: No Known Allergies (Unverified , 12/06/16) Reported Meds & Prescriptions Reported Meds & Active Scripts Active No Active Prescriptions or Reported Medications Review of Systems Except as stated in HPI: all other systems reviewed are Neg General / Constitutional: No: Fever Cardiovascular: No: Chest Pain or Discomfort Respiratory: No: Shortness of Breath Gastrointestinal: Positive: Abdominal Pain, No: Nausea, Vomiting, Diarrhea Genitourinary: No: Decreased Urinary Output Musculoskeletal: No: Edema Physical Exam Narrative GENERAL: Awake, alert, pleasant 57-year-old male who appears his stated age and is in no acute respiratory distress. SKIN: Focused skin assessment warm/dry. HEAD: Atraumatic. Normocephalic. EYES: No injection or drainage. ENT: No nasal bleeding or discharge. Mucous membranes pink and moist. NECK: Trachea midline. No JVD. CARDIOVASCULAR: Regular rate and rhythm. No murmur appreciated. RESPIRATORY: No accessory muscle use. Clear to auscultation. Breath sounds equal bilaterally. GASTROINTESTINAL: Abdomen is distended positive fluid wave. Ventral hernia with fluid and umbilical hernia with fluid present. MUSCULOSKELETAL: No obvious deformities. No clubbing. No cyanosis. No edema. Mild atrophy of the arms and legs. NEUROLOGICAL: Awake and alert. No obvious cranial nerve deficits. Motor grossly within normal limits. Normal speech. PSYCHIATRIC: Appropriate mood and affect; insight and judgment normal. Data Data Last Documented VS Vital Signs Date Time Temp Pulse Resp B/P Pulse Ox O2 Delivery O2 Flow Rate FiO2 01/13/17 08:19 18 01/13/17 08:12 97.7 70 143/80 97 Room Air Orders Complete Blood Count With Diff (01/13/17 08:20) Comprehensive Metabolic Panel (01/13/17 08:20) Act Partial Throm Time (Ptt) (01/13/17 08:20) Prothrombin Time / Inr (Pt) (01/13/17 08:20) Ed Poc Ultrasound (01/13/17 ) Labs Laboratory Tests Test 01/13/17 08:28 White Blood Count 3.6 TH/MM3 Red Blood Count 4.12 MIL/MM3 Hemoglobin 11.9 GM/DL Hematocrit 35.0 % Mean Corpuscular Volume 84.8 FL Mean Corpuscular Hemoglobin 28.8 PG Mean Corpuscular Hemoglobin 34.0 % Concent Red Cell Distribution Width 14.4 % Platelet Count 151 TH/MM3 Mean Platelet Volume 8.8 FL Neutrophils (%) (Auto) 57.5 % Lymphocytes (%) (Auto) 20.4 % Monocytes (%) (Auto) 12.6 % Eosinophils (%) (Auto) 8.5 % Basophils (%) (Auto) 1.0 % Neutrophils # (Auto) 2.1 TH/MM3 Lymphocytes # (Auto) 0.7 TH/MM3 Monocytes # (Auto) 0.5 TH/MM3 Eosinophils # (Auto) 0.3 TH/MM3 Basophils # (Auto) 0.0 TH/MM3 CBC Comment DIFF FINAL Differential Comment Prothrombin Time 11.1 SEC Prothromb Time International 1.0 RATIO Ratio Activated Partial 27.8 SEC Thromboplast Time Sodium Level 139 MEQ/L Potassium Level 4.2 MEQ/L Chloride Level 106 MEQ/L Carbon Dioxide Level 26.7 MEQ/L Anion Gap 6 MEQ/L Blood Urea Nitrogen 10 MG/DL Creatinine 1.06 MG/DL Estimat Glomerular Filtration 72 ML/MIN Rate Random Glucose 102 MG/DL Calcium Level 8.1 MG/DL Total Bilirubin 0.5 MG/DL Aspartate Amino Transf 42 U/L (AST/SGOT) Alanine Aminotransferase 21 U/L (ALT/SGPT) Alkaline Phosphatase 102 U/L Total Protein 6.6 GM/DL Albumin 2.5 GM/DL [facility] Medical Decision Making Medical Screen Exam Complete: Yes Emergency Medical Condition: Yes Medical Record Reviewed: Yes Interpretation(s) Laboratory Tests Test 01/13/17 08:28 White Blood Count 3.6 TH/MM3 Red Blood Count 4.12 MIL/MM3 Hemoglobin 11.9 GM/DL Hematocrit 35.0 % Mean Corpuscular Volume 84.8 FL Mean Corpuscular Hemoglobin 28.8 PG Mean Corpuscular Hemoglobin 34.0 % Concent Red Cell Distribution Width 14.4 % Platelet Count 151 TH/MM3 Mean Platelet Volume 8.8 FL Neutrophils (%) (Auto) 57.5 % Lymphocytes (%) (Auto) 20.4 % Monocytes (%) (Auto) 12.6 % Eosinophils (%) (Auto) 8.5 % Basophils (%) (Auto) 1.0 % Neutrophils # (Auto) 2.1 TH/MM3 Lymphocytes # (Auto) 0.7 TH/MM3 Monocytes # (Auto) 0.5 TH/MM3 Eosinophils # (Auto) 0.3 TH/MM3 Basophils # (Auto) 0.0 TH/MM3 CBC Comment DIFF FINAL Differential Comment Prothrombin Time 11.1 SEC Prothromb Time International 1.0 RATIO Ratio Activated Partial 27.8 SEC Thromboplast Time Sodium Level 139 MEQ/L Potassium Level 4.2 MEQ/L Chloride Level 106 MEQ/L Carbon Dioxide Level 26.7 MEQ/L Anion Gap 6 MEQ/L Blood Urea Nitrogen 10 MG/DL Creatinine 1.06 MG/DL Estimat Glomerular Filtration 72 ML/MIN Rate Random Glucose 102 MG/DL Calcium Level 8.1 MG/DL Total Bilirubin 0.5 MG/DL Aspartate Amino Transf 42 U/L (AST/SGOT) Alanine Aminotransferase 21 U/L (ALT/SGPT) Alkaline Phosphatase 102 U/L Total Protein 6.6 GM/DL Albumin 2.5 GM/DL Differential Diagnosis Differential diagnosis includes cirrhosis, ascites, spontaneous bacterial peritonitis, hypoalbuminemia, hyponatremia, volume overload. Narrative Course A bedside ultrasound was performed which reveals diffuse ascites. CBC, CMP, and PTT/INR/PTT were sent to lab. The patient is currently afebrile, no obvious dyspnea, will be scheduled for outpatient paracentesis through interventional radiology. The patient will be provided a copy of his labs at discharge. He is advised to call the outpatient interventional radiology number for ultrasound-guided therapeutic paracentesis. Diagnosis Primary Impression: Ascites Qualified Code: K70.31 - Ascites due to alcoholic cirrhosis Patient Instructions: General Instructions Additional Instructions: Outpatient paracentesis. Call the number as previously directed. Follow-up with your primary physician and/or gastroenterology. Please provide the patient a copy of his lab results at discharge. Med/Other Pt SpecificInfo: No Change to Meds Scripts No Active Prescriptions or Reported Meds Disposition: DISCHARGE HOME Condition: Stable Dexter Morales MD Jan 13, 2017 08:30
[2017-01-13 08:46] LABS: AUTOMATED NEUTROPHIL # 2.1 TH/MM3 (1.8-7.7); EOSINOPHIL # 0.3 TH/MM3 (0-0.4); EOSINOPHIL % 8.5 % (0.0-4.0); HEMO FLAGS DIFF FINAL; LYMPH % 20.4 % (9.0-44.0); LYMPHOCYTE # 0.7 TH/MM3 (1.0-4.8); MEAN CELL VOLUME 84.8 FL (80.0-100.0); MEAN CORPUSCULAR HEMOGLOBIN 28.8 PG (27.0-34.0); MONO % 12.6 % (0.0-8.0); NEUT % 57.5 % (16.0-70.0); PLATELET COUNT 151 TH/MM3 (150-450); RED BLOOD COUNT 4.12 MIL/MM3 (4.50-5.90); RED CELL DISTRIBUTION WIDTH 14.4 % (11.6-17.2); WHITE BLOOD COUNT 3.6 TH/MM3 (4.0-11.0)
[2017-01-13 09:06] LABS: ANION GAP 6 MEQ/L (5-15); AST (GOT) 42 U/L (15-37); BICARBONATE 26.7 MEQ/L (21.0-32.0); BLOOD UREA NITROGEN 10 MG/DL (7-18); CHLORIDE 106 MEQ/L (98-107); GLOMERULAR FILTRATION RATE 72 ML/MIN (>89); POTASSIUM 4.2 MEQ/L (3.5-5.1); SODIUM (NA) 139 MEQ/L (136-145)
[2017-01-13 09:08] LABS: APTT (PATIENT) 27.8 SEC (24.3-30.1); PROTHROMBIN TIME - PATIENT 11.1 SEC (9.8-11.6)
[2017-01-13 09:11] LABS: ALKALINE PHOSPHATASE 102 U/L (45-117); ALT (GPT) 21 U/L (12-78); TOTAL BILIRUBIN ADULT 0.5 MG/DL (0.2-1.0)
== END 2017-01-13 10:00 | disposition home or self-care (01) ==
LOC: NEPE 08:10
DX: K70.31 Alcoholic cirrhosis of liver with ascites (principal); M19.90 Unspecified osteoarthritis, unspecified site; I48.91 Unspecified atrial fibrillation; I10 Essential (primary) hypertension
CPT/HCPCS: 80053; 85025; 85610; 85730; 99284

== ENCOUNTER 2017-01-14 07:59 | Day surgery (SDC) | payer OTHER ==
[2017-01-14 08:55] VITALS: BP 124/81; PULSE 65; RESP 20; TEMP 97.6; O2SAT 92
[2017-01-14] MEDS ORDERED: ALBUMIN HUMAN 25% 25 GM/100 ML BAGP IV ONE (09:30)
[2017-01-14 11:30] VITALS: BP 102/65; PULSE 57; RESP 18; TEMP 97.9; O2SAT 98
[2017-01-14 11:45] VITALS: BP 92/59; PULSE 56; RESP 18
--- NOTE | 2017-01-14 12:34 | RADRPT ---
EXAM DATE/TIME: 01/14/2017 09:01 [facility] COMPARISON: US GUIDED ABD PARACENTESIS, December 27, 2016, 14:47. INDICATIONS : Ascites. MEDICAL HISTORY : Hypertension. Gastroesophageal reflux disease. Seizures. ETOH withdrawal. Afib. Sleep apnea. Hernia, umbilical. Dyspnea. Arthritis. CVA. SURGICAL HISTORY : Tracheostomy. Gtube placed and removed. Paracentesis. ENCOUNTER: [facility] ACUITY: 2 weeks PAIN SCORE: 0/10 LOCATION: Abdomen [place]: [place] [address] cc of clear, yellow fluid was removed. Fluid was discarded. Paracentesis was therapeutic only. Post procedure scanning reveals no hematoma or other complication. TECHNIQUE: 1. Ultrasound guidance for abdominal paracentesis. 2. Paracentesis. The risks, benefits, and alternatives to ultrasound guided paracentesis were explained to the patient in detail including the risk of bleeding and infection. Written and verbal informed consent was obt ained. With the patient on the ultrasound table, ultrasound imaging was used to select the most appropriate approach for paracentesis. Overlying skin was prepped and draped in the usual sterile fashion and wi th a local anesthetic, a dermatotomy was made with an 11 blade scalpel. A 6 Wol[place] [id number] ca theter was introduced into the peritoneal cavity and fluid was collected. The patient tolerated the procedure well and left the ultrasound suite in stable condition. CONCLUSION: Uncomplicated ultrasound guided paracentesis. Patient received albumin per protocol. Rico Segura MD FACR on January 14, 2017 at 12:31 Board Certified Radiologist. This report was verified electronically.
[2017-01-14 13:05] VITALS: BP 96/62; PULSE 55; RESP 18
== END 2017-01-14 13:05 | disposition home or self-care (01) ==
LOC: HRAD 07:59 → HRIP 08:05 → HRAD 13:05
DX: R18.8 Other ascites (principal); I10 Essential (primary) hypertension; I48.91 Unspecified atrial fibrillation; K21.9 Gastro-esophageal reflux disease without esophagitis; Z86.73 Personal history of transient ischemic attack (TIA), and cerebral infarction without residual deficits
CPT/HCPCS: 49083; 96365; 96366; C1729; P9047

== ENCOUNTER → 2017-01-31 | Day surgery (SDC) | payer OTHER ==
--- NOTE | 2017-01-31 11:18 | RADRPT ---
EXAM DATE/TIME: 01/31/2017 10:56 [facility] COMPARISON: US GUIDED ABD PARACENTESIS, January 14, 2017, 9:01. INDICATIONS : Abdominal distention. MEDICAL HISTORY : Angina. Cirrhosis. CVA. Seizures. ETOH withdrawal. Afib. HTN. Sleep apnea. Dyspnea. GERD. Ascites. SURGICAL HISTORY : Tracheostomy. Gtube placed and removed. Paracentesis. ENCOUNTER: Subsequent ACUITY: 2 weeks PAIN SCORE: 0/10 LOCATION: Bilateral lower quadrant AREA EVALUATED: Abdomen. FINDINGS: Imaging of the abdomen and pelvis was performed to evaluate for ascites for possible paracentesis. There is only minimal ascites seen within the left lower quadrant. This does not appear to be signifi cant enough amount to drain. CONCLUSION: 1. There is only very minimal ascites present within the left lower quadrant. Spencer Segura MD on January 31, 2017 at 11:15 Board Certified Radiologist. This report was verified electronically.
== END | disposition home or self-care (01) ==
LOC: HRAD 10:11
DX: R18.8 Other ascites (principal); K74.60 Unspecified cirrhosis of liver; I48.91 Unspecified atrial fibrillation; I10 Essential (primary) hypertension; K21.9 Gastro-esophageal reflux disease without esophagitis; Z86.73 Personal history of transient ischemic attack (TIA), and cerebral infarction without residual deficits
CPT/HCPCS: 76705

== ENCOUNTER 2017-04-20 10:07 | Inpatient (IN) | payer OTHER ==
[2017-04-20] VITALS (12 sets, daily range): BP systolic 89–160; BP diastolic 62–104; PULSE 72–202; RESP 20–22; TEMP 98.3–98.4; O2SAT 94–98
--- NOTE | 2017-04-20 10:19 | PD ---
Physical Exam Time Seen by Provider: 10:16 Narrative 57yo M c/o R sided abd pain, diarrhea, decreased appetite, and low grade fever x 1 week. Hx of GI tube and Umbilical hernia. Patient seen in triage. VS reviewed. Patient awaiting medical bed. Data Data Last Documented VS Vital Signs Date Time Temp Pulse Resp B/P Pulse Ox O2 Delivery O2 Flow Rate FiO2 04/20/17 10:11 98.4 72 20 160/104 98 MDM Supervised Visit with PAIGE: No Scripts No Active Prescriptions or Reported Meds Jossy Orona Apr 20, 2017 10:19
[2017-04-20 12:04] LABS: BASOPHIL # 0.1 TH/MM3 (0-0.2); BASOPHIL % 0.6 % (0.0-2.0); EOSINOPHIL % 0.2 % (0.0-4.0); HEMATOCRIT 38.4 % (39.0-51.0); HEMO FLAGS DIFF FINAL; LYMPH % 2.7 % (9.0-44.0); LYMPHOCYTE # 0.4 TH/MM3 (1.0-4.8); MEAN CORPUSCULAR HEMOGLOBIN 27.3 PG (27.0-34.0); MEAN CORPUSCULAR HGB CONC 32.4 % (32.0-36.0); MONO % 4.4 % (0.0-8.0); NEUT % 92.1 % (16.0-70.0); PLATELET COUNT 256 TH/MM3 (150-450); RED BLOOD COUNT 4.56 MIL/MM3 (4.50-5.90); WHITE BLOOD COUNT 15.2 TH/MM3 (4.0-11.0)
[2017-04-20] MEDS ORDERED: DILTIAZEM HCL 25 MG/5 ML VIAL ONE (13:38)
[2017-04-20] MEDS ORDERED: SODIUM CHLOR 0.9% 1000 ML INJ 1,000 ML IV ONE ×2 (13:45)
[2017-04-20] MEDS ORDERED: DILTIAZEM HCL 25 MG/5 ML VIAL IV ONE (13:45)
[2017-04-20] MEDS: DILTIAZEM INJ 125 MG in SODIUM CHLORIDE 0.9% INJ 100 ML IV SCH (14:15)
[2017-04-20 14:33] LABS: INTERNATIONAL NORMALIZED RATIO 1.3 RATIO
[2017-04-20 14:34] LABS: PROTHROMBIN TIME - PATIENT 14.7 SEC (9.8-11.6)
--- NOTE | 2017-04-20 14:38 | RADRPT ---
EXAM DATE/TIME: 04/20/2017 13:56 [facility] COMPARISON: No previous studies available for comparison. INDICATIONS : Right side abdomen pain for two weeks, low grade fever ORAL CONTRAST: No oral contrast ingested. RADIATION DOSE: 9.96 CTDIvol (mGy) MEDICAL HISTORY : Seizures. Hypertension. Cirrhosis. SURGICAL HISTORY : G tube ENCOUNTER: Initial ACUITY: 2 weeks PAIN SCALE: 6/10 LOCATION: Right Abdomen TECHNIQUE: Volumetric scanning of the abdomen and pelvis was performed. Using automated exposure control and ad justment of the mA and/or kV according to patient size, radiation dose was kept as low as reasonably achievable to obtain optimal diagnostic quality images. DICOM format image data is available electro nically for review and comparison. FINDINGS: LOWER LUNGS: There is a large right and a partially visualized moderate sized left pleural effusion with associate d compressive atelectasis. Small pericardial effusion is present. There is bilateral gynecomastia. LIVER: Liver is normal in density but small in size with mildly nodular contour. There is a recannulized par aumbilical vein. No focal lesion is visualized on this noncontrast examination. There are calcified s tones within the gallbladder. There is no dilation of the biliary tree. SPLEEN: Normal size. PANCREAS: No acute abnormality. KIDNEYS: Normal in size and shape. There is no mass, stone, or hydronephrosis. ADRENAL GLANDS: Within normal limits. VASCULAR: There is no aortic aneurysm. There is moderate atherosclerotic disease. BOWEL/MESENTERY: The stomach, small bowel, and colon demonstrate no acute abnormality. There is no free intraperitone al air. There is moderate volume of free fluid within the abdomen and pelvis. There is possible perit meredith thickening. The fluid lateral to the spleen appears loculated. ABDOMINAL WALL: There is a fluid containing umbilical hernia. Superior and left of the umbilicus is an additional abd ominal wall hernia containing fat, fluid, and the anterior wall of the distal transverse colon. RETROPERITONEUM: There is no lymphadenopathy. BLADDER: No wall thickening or mass. REPRODUCTIVE: Within normal limits. INGUINAL: There is no lymphadenopathy. There is a fluid containing left inguinal hernia extending into the scro julia. MUSCULOSKELETAL: There are degenerative changes of the spine. CONCLUSION: 1. Moderate volume free fluid in the abdomen and pelvis with possible associated peritoneal thickenin g. Thickening of the peritoneal lining can be seen with infection. 2. Large right and moderate size left pleural effusion with associated compressive atelectasis. 3. There is an umbilical hernia containing fluid and fat and fluid containing hernia superior and to the left of the umbilicus. This hernia also contains a portion of the transverse colon. 4. Nonacute findings include changes related to chronic liver disease including recanalized paraumbil ical vein and bilateral gynecomastia. 5. Other nonacute findings include cholelithiasis and moderate atherosclerotic disease. Mushtaq Alexis MD on April 20, 2017 at 14:21 Board Certified Radiologist. This report was verified electronically.
[2017-04-20] MEDS ORDERED: METOPROLOL TARTRATE 5 MG/5 ML VIAL IV PUSH ONE (15:30)
[2017-04-20 16:31] LABS: ANION GAP 11 MEQ/L (5-15); AST (GOT) 27 U/L (15-37); BLOOD UREA NITROGEN 37 MG/DL (7-18); CHLORIDE 101 MEQ/L (98-107); GLOMERULAR FILTRATION RATE 59 ML/MIN (>89); POTASSIUM 4.6 MEQ/L (3.5-5.1); SODIUM (NA) 133 MEQ/L (136-145)
[2017-04-20 16:32] LABS: ALT (GPT) 15 U/L (12-78)
[2017-04-20 16:34] LABS: ALKALINE PHOSPHATASE 82 U/L (45-117); TOTAL BILIRUBIN ADULT 0.9 MG/DL (0.2-1.0)
[2017-04-20] MEDS ORDERED: ONDANSETRON HCL 4 MG/2 ML VIAL IV PUSH PRN (16:45)
[2017-04-20] MEDS ORDERED: VANCOMYCIN INJ 1,000 MG in SODIUM CHLOR 0.9% 250 ML INJ 250 ML IV ONE (16:45)
[2017-04-20] MEDS ORDERED: PIPERACIL-TAZO 4.5 GM PREMIX 100 ML IV ONE (16:45)
[2017-04-20] MEDS ORDERED: SODIUM CHLOR 0.9% 1000 ML INJ 1,000 ML IV SCH (16:45)
--- NOTE | 2017-04-20 17:54 | PD ---
HPI Chief Complaint: GI Complaint Time Seen by Provider: 13:18 Travel History International Travel<30 days: No Contact w/Intl Traveler<30days: No Traveled to known affect area: No History of Present Illness HPI 57-year-old male came to the emergency room brought by his with history of poor appetite, refusing to eat or drink and abdominal distention from ascites. His is giving the main history. As per her patient has had history of ascites for quite some time but has required fluid to be tapped. He has been declining for past 2 weeks. He's not been eating very well to the point where for past 2-3 days he has not eaten anything. The has been forcing him to drink some juice. She looks extremely emaciated. He is awake but really not talking much. denied of any fever or chills, she said that yesterday he was having a lot of diarrhea. No history of vomiting. Patient was extremely tachycardic in triage. There was an EKG done prior to my arrival which showed atrial fibrillation with RVR. The says he does have history of atrial fibrillation and takes atenolol. He is not on any blood thinners. He has been taking the atenolol like he is supposed was per the . denied of him drinking any alcohol or drugs. [facility] Past Medical History Narrative Medical List of his past medical, surgical, social and family history is reviewed from the nursing note. Arthritis: Yes Asthma: No Atrial Fibrillation: Yes Heart Rhythm Problems: No Cancer: No Cardiovascular Problems: Yes (A-FIB / HTN) High Cholesterol: No Chest Pain: No Congestive Heart Failure: No Cirrhosis: Yes COPD: No Diabetes: No Diminished Hearing: No Endocrine: No Gastrointestinal Disorders: Yes GERD: Yes Genitourinary: No Headaches: No Hiatal Hernia: No Hypertension: No Immune Disorder: No Implanted Vascular Access Dvce: No Musculoskeletal: Yes Neurologic: Yes Psychiatric: No Reproductive: No Respiratory: Yes Immunizations Current: No Migraines: No Seizures: Yes (R/T ETOH WITHDRAWL) Sleep Apnea: Yes Thyroid Disease: No Ulcer: No Past Surgical History Abdominal Surgery: Yes Other Surgery: Yes (tracheostomy- GTUBE placed and removed) Social History Alcohol Use: No (FORMER) Tobacco Use: No Substance Use: No Allergies-Medications (Allergen,Severity, Reaction): Coded Allergies: No Known Allergies (Unverified , 12/06/16) Comments NKDA Reported Meds & Prescriptions Reported Meds & Active Scripts Active No Active Prescriptions or Reported Medications Narrative Medication List of his home medications were reviewed from the nursing note. Review of Systems Except as stated in HPI: all other systems reviewed are Neg Physical Exam Narrative GENERAL: Awake, alert, emaciated, moderate distress SKIN: Focused skin assessment warm/dry. HEAD: Atraumatic. Normocephalic. EYES: Pupils equal and round. No scleral icterus. No injection or drainage. Sunken eyes ENT: No nasal bleeding or discharge. Mucous membranes pink and moist. NECK: Trachea midline. No JVD. CARDIOVASCULAR: Irregularly irregular rate and rhythm, tachycardia. No murmur appreciated. RESPIRATORY: No accessory muscle use. Tachypnea. Clear to auscultation. Breath sounds equal bilaterally. GASTROINTESTINAL: Abdomen soft, distended secondary to ascites, large ventral hernia and small umbilical hernia. Hepatic and splenic margins not palpable. MUSCULOSKELETAL: No obvious deformities. No clubbing. No cyanosis. Pedal edema. NEUROLOGICAL: Awake and alert. No obvious cranial nerve deficits. Motor grossly within normal limits. Normal speech. PSYCHIATRIC: Appropriate mood and affect; insight and judgment normal. Data Data Last Documented VS Vital Signs Date Time Temp Pulse Resp B/P Pulse Ox O2 Delivery O2 Flow Rate FiO2 04/20/17 16:16 139 20 89/62 04/20/17 13:27 Nasal Cannula 2 04/20/17 13:27 96 04/20/17 10:11 98.4 Orders Complete Blood Count With Diff (04/20/17 10:36) Comprehensive Metabolic Panel (04/20/17 10:36) Urinalysis - C+S If Indicated (04/20/17 10:36) Iv Access Insert/Monitor (04/20/17 10:36) Oxygen Administration (04/20/17 10:36) Oximetry (04/20/17 10:36) Lipase (04/20/17 10:36) Lactic Acid (04/20/17 13:34) Ammonia (04/20/17 13:34) Blood Culture (04/20/17 13:34) Sodium Chlor 0.9% 1000 Ml Inj (Ns 1000 M (04/20/17 13:45) Sodium Chlor 0.9% 1000 Ml Inj (Ns 1000 M (04/20/17 13:45) Diltiazem Inj (Cardizem Inj) (04/20/17 13:45) Diltiazem Inj (Cardizem Inj) (04/20/17 13:45) Prothrombin Time / Inr (Pt) (04/20/17 13:34) Ct Abd/Pel W/O Iv Contrast (04/20/17 ) Diltiazem Inj (Cardizem Inj) (04/20/17 13:38) Electrocardiogram (04/20/17 13:23) Metoprolol Tartrate Inj (Lopressor Inj) (04/20/17 15:30) Piperacil-Tazo 4.5 Gm Premix (Zosyn 4.5 (04/20/17 16:45) Vancomycin Inj (Vancomycin Inj) (04/20/17 16:45) Peritoneal Cell Count + Diff (04/20/17 16:34) Total Protein Peritoneal Fluid (04/20/17 16:34) Albumin, Peritoneal Fluid (04/20/17 16:34) Glucose, Peritoneal Fluid (04/20/17 16:34) Ldh, Peritoneal Fluid (04/20/17 16:34) Amylase, Peritoneal Fluid (04/20/17 16:34) Cytology Request For Service (04/20/17 16:34) Vital Signs (Adult) MARIE.Q4H (04/20/17 16:45) Sodium Chlor 0.9% 1000 Ml Inj (Ns 1000 M (04/20/17 16:45) Ondansetron Inj (Zofran Inj) (04/20/17 16:45) Piperacil-Tazo 3.375 Gm Premix (Zosyn 3. (04/20/17 23:00) Admit Order (Ed Use Only) (04/20/17 16:51) Us Guided Abd Paracentesis (04/21/17 ) Labs Laboratory Tests Test 04/20/17 04/20/17 04/20/17 04/20/17 11:25 13:40 15:35 16:45 White Blood Count 15.2 TH/MM3 Red Blood Count 4.56 MIL/MM3 Hemoglobin 12.4 GM/DL Hematocrit 38.4 % Mean Corpuscular Volume 84.0 FL Mean Corpuscular Hemoglobin 27.3 PG Mean Corpuscular Hemoglobin 32.4 % Concent Red Cell Distribution Width 18.0 % Platelet Count 256 TH/MM3 Mean Platelet Volume 7.9 FL Neutrophils (%) (Auto) 92.1 % Lymphocytes (%) (Auto) 2.7 % Monocytes (%) (Auto) 4.4 % Eosinophils (%) (Auto) 0.2 % Basophils (%) (Auto) 0.6 % Neutrophils # (Auto) 14.0 TH/MM3 Lymphocytes # (Auto) 0.4 TH/MM3 Monocytes # (Auto) 0.7 TH/MM3 Eosinophils # (Auto) 0.0 TH/MM3 Basophils # (Auto) 0.1 TH/MM3 CBC Comment DIFF FINAL Differential Comment Prothrombin Time 14.7 SEC Prothromb Time International 1.3 RATIO Ratio Lactic Acid Level 2.8 mmol/L Ammonia 18 MCMOL/L Sodium Level 133 MEQ/L Potassium Level 4.6 MEQ/L Chloride Level 101 MEQ/L Carbon Dioxide Level 21.0 MEQ/L Anion Gap 11 MEQ/L Blood Urea Nitrogen 37 MG/DL Creatinine 1.25 MG/DL Estimat Glomerular Filtration 59 ML/MIN Rate Random Glucose 89 MG/DL Calcium Level 7.5 MG/DL Magnesium Level 2.2 MG/DL Total Bilirubin 0.9 MG/DL Aspartate Amino Transf 27 U/L (AST/SGOT) Alanine Aminotransferase 15 U/L (ALT/SGPT) Alkaline Phosphatase 82 U/L Total Protein 6.3 GM/DL Albumin 1.3 GM/DL Lipase 109 U/L Urine Color YELLOW Urine Turbidity CLEAR Urine pH 5.5 Urine Specific [place] 1.024 Urine Protein 30 mg/dL Urine Glucose (UA) NEG mg/dL Urine Ketones TRACE mg/dL Urine Occult Blood NEG Urine Nitrite NEG Urine Bilirubin NEG Urine Urobilinogen 2.0 MG/DL Urine Leukocyte Esterase NEG Urine RBC LESS THAN 1 /hpf Urine WBC 2 /hpf Urine Hyaline Casts 6 /lpf Urine Granular Casts 2 /lpf Urine Waxy Casts 2 /lpf Urine Mucus FEW /lpf Microscopic Urinalysis Comment CULT NOT INDICATED MDM Medical Decision Making Medical Screen Exam Complete: Yes Emergency Medical Condition: Yes Medical Record Reviewed: Yes Interpretation(s) Twelve-lead EKG was reviewed by me. Atrial fibrillation, RVR, normal axis. Heart rate of 203 bpm. Differential Diagnosis Sepsis, atrial fibrillation with RVR, dehydration, electrolyte abnormality Narrative Course 5 PM CBC showed leukocytosis with left shift. Chemistry was within acceptable limits. Lactic acid was elevated. I did a CT of his abdomen and pelvis without contrast which shows ascites and the hernia but as per the radiologist' s the peritoneum looks to be thickened which could be secondary to infection. I 've covered him with antibiotics and fluid as per sepsis protocol. My attempt to rate control was semi-successful. Heart rate has been running in 150s to 160s at this point. He is maintaining his blood pressure. Had ordered an ultrasound-guided paracentesis since my concern is spontaneous bacterial peritonitis. However as per ultrasound and the radiologist's he has a small pocket of fluid and they would prefer to do a CT guided paracentesis tomorrow. Patient has been admitted to the hospitalist to CICU. Critical Care Narrative Aggregate critical care time was 75 minutes. Time to perform other separately billable procedures was not included in the critical care time. My time did not include minutes spent treating any other patients simultaneously or on activities that did not directly contribute to the patient's treatment. The services I provided to this patient were to treat and/or prevent clinically significant deterioration that could result in: A. fib, RVR, rate control, Cardizem drip, sepsis, sepsis protocol I provided critical care services requiring my management, as noted below: Chart data review, documentation time, medication orders and management, vital sign assessments/reviewing monitor data, ordering and reviewing lab tests, ordering and interpreting/reviewing x-rays and diagnostic studies, care of the patient and discussion of the patient with the admitting physicians. Procedures EKG Prior to Arrival: Yes Diagnosis Primary Impression: Sepsis Qualified Code: A41.9 - Sepsis, due to unspecified organism Additional Impressions: Atrial fibrillation with RVR possible spontaneous bacterial peritonitis Admitting Information Admitting Physician Requests: Admit Scripts No Active Prescriptions or Reported Meds Bakari Silveira MD Apr 20, 2017 17:54
[2017-04-20 18:22] LABS: BLOOD, URINE NEG (NEG); COMMENT (UR) CULT NOT INDICATED; CULTURE IF INDICATED CULT NOT INDICATED; GLUCOSE,URINE NEG (NEG); GRANULAR CAST, URINE 2 /lpf; HYALINE CAST, URINE 6 /lpf (RARE); KETONE, URINE TRACE mg/dL (NEG); MUCUS URINE FEW /lpf (OCC); NITRITE,URINE NEG (NEG); PH, URINE 5.5 (5.0-8.5); URINE COLOR YELLOW (YELLW/STRAW); WAXY CAST, URINE 2 /lpf
--- NOTE | 2017-04-20 21:20 | RADRPT ---
EXAM DATE/TIME: 04/20/2017 21:00 [facility] COMPARISON: CHEST SINGLE AP, December 27, 2016, 9:14. INDICATIONS : Rule out pulmonary edema. MEDICAL HISTORY : Hypertension. Gastroesophageal reflux disease. Seizures. ETOH withdrawal. SURGICAL HISTORY : Tracheostomy. Gtube placed and removed. Paracentesis. ENCOUNTER: Initial ACUITY: 1 day PAIN SCORE: 4/10 LOCATION: Bilateral Abdomen. FINDINGS: Abnormal. There is prominent opacity in the right mid and lower lung causing loss of delineation of the right hemidiaphragm and right heart border. There are some air bronchograms present. The appear ance is characteristic of a combination of pleural effusion and consolidation. In the left lower tierra g, there is dense consolidation with loss of delineation of the medial two thirds of the left hemidia phragm and multiple air bronchograms. The heart is normal in size. The upper lungs are clear. CONCLUSION: Bilateral lower lung consolidation and pleural effusion. Kwaku Haro MD on April 20, 2017 at 21:18 Board Certified Radiologist. This report was verified electronically.
[2017-04-20] MEDS ORDERED: FUROSEMIDE 40 MG/4 ML VIAL IV PUSH ONE (22:00)
--- NOTE | 2017-04-20 22:00 | HHI.HP ---
HPI Service [facility] Primary Care Physician Mushtaq Espinoza MD Admission Diagnosis sepsis, failure to thrive, dehydration, A. fib with RVR Diagnoses: Chief Complaint: abdominal swelling, diarrhea Travel History International Travel<30 Days: No Contact w/Intl Traveler <30 Da: No Traveled to Known Affected Are: No Sepsis Criteria SIRS Criteria (2 or more): Heart rate over 90, WBC > 39211, < 4000 or > 10% bands Sepsis Criteria (SIRS+source): Infect source susp/known Severe Sepsis (+one): Lactate >2 Criteria Outcome: Meets severe sepsis criteria History of Present Illness Written by LOS Smith acting as scribe for [Pearl] on 04/20/17 at 21: 52. 57 y/o male with a history of central pontine myelinolysis, Afib, HTN, cirrhosis , and arthritis was brought to the ED by his for poor appetite for 2-3 days , ascites, and diarrhea. Patient states his abdomen is swelling and he has no appetite. He also has associated left abdominal pain near hernia, diarrhea, dark in color. Denies chest pain, sob, fever, chills. is currently not at bedside. Patient is somewhat of a poor historian and is not so sure about some parts of his medical history. He states he knows everything. In the emergency room at triage, patient was found to have A. fib with RVR. Patient does have history of atrial fibrillation. He was therefore started on Cardizem drip in ER. He was also given IV fluids 2 L normal saline bolus in ER for possible sepsis workup. At the time of our exam, patient is lying in bed but noted to be tachycardic around 140 while on Cardizem drip of 15. He also has prominent carotid pulsations with positive JVD. He denies significant shortness of breath but he apparently is speaking in short sentences as well. Review of Systems ROS Limitations: Poor Historian Except as stated in HPI: all other systems reviewed are Neg Past Family Social History Past Medical History Per EMR: Afib HTN cirrhosis arthritis central pontine myelinolysis History of respiratory failurerequiring mechanical ventilation, status post tracheostomy, decannulationin September 2015 hospitalization History of alcohol abuse Past Surgical History Trach and peg, now removed Reported Medications Reported Meds & Active Scripts Active No Active Prescriptions or Reported Medications Allergies: Coded Allergies: No Known Allergies (Unverified , 12/06/16) Active Ordered Medications Current Medications Medications (Trade) Dose Ordered Sig/Rhea Route Start Time Stop Time Status Last Admin (Cardizem Inj/NS Inj) 125 ml @ 0 mls/hr TITRATE IV 04/20/17 13:45 04/20/17 14:15 Ondansetron HCl 4 mg 4 mg Q8HR PRN IV PUSH 04/20/17 16:45 (Zosyn 3.375 Gm Premix) 50 ml @ 100 mls/hr Q6H IV 04/20/17 23:00 (Lasix Inj) 40 mg BID@09,18 IV PUSH 04/21/17 09:00 Family History Per EMR: mom and dad had DM Social History Tobacco use: Denies Alcohol use: quit 5-10 years ago Illicit drug use: Denies Physical Exam Vital Signs Vital Signs Date Time Temp Pulse Resp B/P Pulse Ox O2 Delivery O2 Flow Rate FiO2 04/20/17 20:00 118 22 92/70 96 Nasal Cannula 2 04/20/17 19:08 122 22 97/72 94 Nasal Cannula 2 04/20/17 18:37 155 20 115/67 04/20/17 17:25 152 20 101/62 04/20/17 16:16 139 20 89/62 04/20/17 15:50 154 20 100/67 04/20/17 13:46 165 20 100/70 04/20/17 13:30 202 20 110/65 04/20/17 13:27 Nasal Cannula 2 04/20/17 13:27 96 04/20/17 10:11 98.4 72 20 160/104 98 Physical Exam GENERAL: This is a mal-nourished, ill looking patient. Temporal wasting present SKIN: No rashes, ecchymoses or lesions. Cool and dry. HEAD: Atraumatic. Normocephalic. EYES: Pupils equal round and reactive. ENT: Nose without bleeding, purulent drainage or septal hematoma. Airway patent. NECK: Trachea midline. Positive JVD CARDIOVASCULAR: Irregularly irregular, no murmur appreciated. No, gallops, or rubs. RESPIRATORY: Tachypnea, diminished Breath. No wheezes, rales, or rhonchi. GASTROINTESTINAL: Abdomen soft, left sided tenderness, distended. Large umbilical hernia noted. Positive ascites. MUSCULOSKELETAL: Extremities without clubbing, cyanosis, or edema. No joint tenderness, effusion, or edema noted. No calf tenderness. NEUROLOGICAL: Awake and alert. Poor historian. Motor and sensory grossly within normal limits. Normal speech. Laboratory Laboratory Tests Test 04/20/17 04/20/17 04/20/17 04/20/17 11:25 13:40 15:35 16:45 White Blood Count 15.2 Red Blood Count 4.56 Hemoglobin 12.4 Hematocrit 38.4 Mean Corpuscular Volume 84.0 Mean Corpuscular Hemoglobin 27.3 Mean Corpuscular Hemoglobin 32.4 Concent Red Cell Distribution Width 18.0 Platelet Count 256 Mean Platelet Volume 7.9 Neutrophils (%) (Auto) 92.1 Lymphocytes (%) (Auto) 2.7 Monocytes (%) (Auto) 4.4 Eosinophils (%) (Auto) 0.2 Basophils (%) (Auto) 0.6 Neutrophils # (Auto) 14.0 Lymphocytes # (Auto) 0.4 Monocytes # (Auto) 0.7 Eosinophils # (Auto) 0.0 Basophils # (Auto) 0.1 CBC Comment DIFF FINAL Differential Comment Prothrombin Time 14.7 Prothromb Time International 1.3 Ratio Lactic Acid Level 2.8 Ammonia 18 Sodium Level 133 Potassium Level 4.6 Chloride Level 101 Carbon Dioxide Level 21.0 Anion Gap 11 Blood Urea Nitrogen 37 Creatinine 1.25 Estimat Glomerular Filtration 59 Rate Random Glucose 89 Calcium Level 7.5 Total Bilirubin 0.9 Aspartate Amino Transf 27 (AST/SGOT) Alanine Aminotransferase 15 (ALT/SGPT) Alkaline Phosphatase 82 Total Protein 6.3 Albumin 1.3 Lipase 109 Urine Color YELLOW Urine Turbidity CLEAR Urine pH 5.5 Urine Specific [place] 1.024 Urine Protein 30 Urine Glucose (UA) NEG Urine Ketones TRACE Urine Occult Blood NEG Urine Nitrite NEG Urine Bilirubin NEG Urine Urobilinogen 2.0 Urine Leukocyte Esterase NEG Urine RBC LESS THAN 1 Urine WBC 2 Urine Hyaline Casts 6 Urine Granular Casts 2 Urine Waxy Casts 2 Urine Mucus FEW Microscopic Urinalysis Comment CULT NOT INDICATED Date/Time Procedure Status Source Growth 04/20/17 13:40 Aerobic Blood Culture Received Blood Peripheral Pending 8/2/17 13:40 Anaerobic Blood Culture Received Blood Peripheral Pending Result Diagram: 04/20/17 1125 04/20/17 1535 Imaging Last Impressions Chest X-Ray 04/20/17 0000 Signed Impressions: Service Date/Time: Thursday, April 20, 2017 21:00 - CONCLUSION: Bilateral lower lung consolidation and pleural effusion. Kwaku Haro MD Abdomen/Pelvis CT 04/20/17 0000 Signed Impressions: Service Date/Time: Thursday, April 20, 2017 13:56 - CONCLUSION: 1. Moderate volume free fluid in the abdomen and pelvis with possible associated peritoneal thickening. Thickening of the peritoneal lining can be seen with infection. 2. Large right and moderate size left pleural effusion with associated compressive atelectasis. 3. There is an umbilical hernia containing fluid and fat and fluid containing hernia superior and to the left of the umbilicus. This hernia also contains a portion of the transverse colon. 4. Nonacute findings include changes related to chronic liver disease including recanalized paraumbilical vein and bilateral gynecomastia. 5. Other nonacute findings include cholelithiasis and moderate atherosclerotic disease. Mushtaq Alexis MD Assessment and Plan Problem List: (1) Ascites ICD Code: R18.8 Status: Acute (2) Atrial fibrillation with RVR ICD Code: I48.91 Status: Acute (3) Pneumonia ICD Code: J18.9 Status: Acute (4) Protein calorie malnutrition ICD Code: E46 Status: Acute (5) HTN (hypertension) ICD Code: I10 Status: Chronic Assessment and Plan 57 y/o male with a history of Afib, HTN, cirrhosis, and arthritis was brought to the ED by his for poor appetite for 2-3 days, ascites, and diarrhea. Symptomatic Ascites, possible spontaneous bacterial peritonitis Abdominal CT reviewed and shows Moderate volume free fluid in the abdomen and pelvis with possible associated peritoneal thickening. Thickening of the peritoneal lining can be seen with infection. Large right and moderate size left pleural effusion with associated compressive atelectasis. There is an umbilical hernia containing fluid and fat and fluid containing hernia superior and to the left of the umbilicus. Dyspneasecondary to symptomatic ascites, worsened by fluids boluses given in ER. -Lasix 40mg given now and BID. Aggressive diuresis. Would likely need further diuresis overnight. -CT guided paracenteses in AM, radiology opted for CT vs US, labs for fluid collection ordered Pneumonia with bilateral Pleural effusion, and/ or spontaneous bacterial peritonitis patient with dyspnea, HR 120s, wbc 15.2, lactic acid 2.8 Chest x-ray reviewed and shows Bilateral lower lung consolidation and pleural effusion. -Diuretics as above -IV antibiotics Zosyn -Blood cultures pending -CBC in AM Afib RVR, unresolved after metoprolol IV -Cardizem drip, titrate -Telemetry - Would need to treat the and lying cause of A. fib. Suspects that fluid overload, abdominal distention from ascites are all playing a role into his A. fib with RVR. We'll diurese. Possible Palmer. Paracenteses in a.m. Diarrhea, acute - Suspects this is from lactulose. Patient does not remember his med list. States that he does take one medications in the morning for diarrhea. He reports his diarrhea is only once a day in the morning as well. No previous antibiotics use. HTN, chronic currently hypotensive -Will hold home Meds for now as we are giving Cardizem and Lasix. Update med rec. Protein calorie malnutrition, suspected due to ascites and pain -Calorie count when patient no longer NPO DVT prophylaxis: Lovenox. This note was transcribed by faustino [Dalila Meek]. I, Dr. Bradley Kang personally performed the history, physical exam, and medical decision making; and confirmed the accuracy of the information in the transcribed note. Authenticated by Dr. Bradley Kang on 04/20/17 at 21:52. Discussed Condition With Patient and RN Physician Certification 2 Midnight Certification Type: Admission for Inpatient Services Order for Inpatient Services The services are ordered in accordance with Medicare regulations or non- Medicare payer requirements, as applicable. In the case of services not specified as inpatient-only, they are appropriately provided as inpatient services in accordance with the 2-midnight benchmark. Estimated LOS (days): 3 days is the estimated time the patient will need to remain in the hospital, assuming treatment plan goals are met and no additional complications. Post-Hospital Plan: Not yet determined Problem Qualifiers (1) Ascites: Qualified Code: K70.31 - Ascites due to alcoholic cirrhosis (2) Pneumonia: Qualified Code: J18.9 - Pneumonia of both lower lobes due to infectious organism Dalila Meek Apr 20, 2017 22:00 Bradley Kang MD Apr 21, 2017 01:56
[2017-04-21] VITALS (37 sets, daily range): BP systolic 84–116; BP diastolic 55–80; PULSE 109–202; RESP 14–22; TEMP 98–98.9; O2SAT 90–99
[2017-04-21] MEDS ORDERED: DILTIAZEM HCL 25 MG/5 ML VIAL IV ONE (00:15)
[2017-04-21] MEDS: PIPERACIL-TAZO 3.375 GM PREMIX 50 ML IV SCH ×3 (00:50→11:00)
[2017-04-21] MEDS: DILTIAZEM INJ 125 MG in SODIUM CHLORIDE 0.9% INJ 100 ML IV SCH ×3 (00:59→22:39)
[2017-04-21] MEDS ORDERED: DIGOXIN 0.5 MG/2 ML VIAL IV PUSH ONE (03:15)
[2017-04-21] MEDS ORDERED: ADENOSINE IV SOLN 3 MG/ML 2 ML VIAL IV PUSH PRN ×2 (04:45)
[2017-04-21] MEDS ORDERED: ADENOSINE IV SOLN 3 MG/ML 2 ML VIAL IV PUSH ONE (04:45)
[2017-04-21] MEDS ORDERED: AMIODARONE INJ 150 MG in DEXTROSE 5% IN WATER 100ML INJ 97 ML IV ONE ×2 (05:30)
[2017-04-21 06:20] LABS: AUTOMATED NEUTROPHIL # 8.1 TH/MM3 (1.8-7.7); BASOPHIL % 0.3 % (0.0-2.0); EOSINOPHIL # 0.1 TH/MM3 (0-0.4); EOSINOPHIL % 0.6 % (0.0-4.0); HEMATOCRIT 33.7 % (39.0-51.0); HEMO FLAGS DIFF FINAL; LYMPH % 4.5 % (9.0-44.0); LYMPHOCYTE # 0.4 TH/MM3 (1.0-4.8); MEAN CELL VOLUME 82.8 FL (80.0-100.0); MEAN CORPUSCULAR HEMOGLOBIN 27.9 PG (27.0-34.0); MEAN CORPUSCULAR HGB CONC 33.7 % (32.0-36.0); MONO % 5.6 % (0.0-8.0); PLATELET COUNT 154 TH/MM3 (150-450); RED BLOOD COUNT 4.07 MIL/MM3 (4.50-5.90); RED CELL DISTRIBUTION WIDTH 17.9 % (11.6-17.2); WHITE BLOOD COUNT 9.1 TH/MM3 (4.0-11.0)
[2017-04-21] MEDS: DEXTROSE 5% IV SCH ×4 (06:28→13:46)
[2017-04-21] MEDS: WATER IV SCH ×4 (06:28→13:46)
[2017-04-21] MEDS: AMIODARONE IV SCH ×4 (06:28→13:46)
[2017-04-21 06:54] LABS: BICARBONATE 23.3 MEQ/L (21.0-32.0); POTASSIUM 3.8 MEQ/L (3.5-5.1)
[2017-04-21] MEDS: ENOXAPARIN SODIUM 40 MG/0.4 ML SYRINGE SQ SCH (09:00)
[2017-04-21] MEDS: FUROSEMIDE 40 MG/4 ML VIAL IV PUSH SCH ×2 (10:35→18:00)
--- NOTE | 2017-04-21 10:41 | PD.CONS ---
HPI Consult Requested By Primary Care Physician Mushtaq Espinoza MD History of Present Illness 57 y/o male with a pmhx significant for central pontine myelinolysis, Afib, HTN , and cirrhosis was brought to the ED by his for poor appetite for 2-3 days , ascites, diarrhea, abdomen pain and decrease appetite. Denies chest pain, sob, fever, chills. Cardiology consulted for A. fib with RVR. First set of blood cultures positive for Gram +cocci. Review of Systems Consitutional: DENIES: Fatigue, Fever, Chills, Weight gain, Weight loss Eyes: DENIES: Amaurosis Fugax, Change in vision HEENT: DENIES: Lightheadedness, Change in hearing Respiratory: DENIES: See HPI, Cough, Snoring, Shortness of breath, Wheezing, Sputum production Cardiovascular: DENIES: See HPI, Chest pain, Palpitations, Syncope, Tachycardia Gastrointestinal: COMPLAINS OF: Nausea, Vomiting, DENIES: Change in bowel habits, Reflux, Bloody stools, Melena Genitourinary: DENIES: Urinary incontinence, Difficulty voiding Integumentary: DENIES: Rash Neurologic: DENIES: Tingling or numbness, Memory problems, Poor Balance, Stroke symptoms Musculoskeletal: DENIES: Joint pain, Muscle pain, Limited range of motion, Back pain Psychiatric: DENIES: Anxiety, Depression, Sleep disturbances Hematologic: DENIES: Bruising tendencies, Bleeding tendencies Endocrine: DENIES: Weight gain, Weight loss, Thyroid disease Past Family Social History Allergies: Coded Allergies: No Known Allergies (Unverified , 12/06/16) Past Medical History Afib HTN cirrhosis arthritis central pontine myelinolysis History of respiratory failurerequiring mechanical ventilation, status post tracheostomy, decannulationin September 2015 hospitalization History of alcohol abuse Past Surgical History Trach and peg, now removed Reported Medications Reported Medications Reported Meds & Active Scripts Active No Active Prescriptions or Reported Medications Active Ordered Medications Current Medications Medications (Trade) Dose Ordered Sig/Rhea Route Start Time Stop Time Status Last Admin (Cardizem Inj/NS Inj) 125 ml @ 0 mls/hr TITRATE IV 04/20/17 13:45 04/21/17 00:59 Ondansetron HCl 4 mg 4 mg Q8HR PRN IV PUSH 04/20/17 16:45 (Zosyn 3.375 Gm Premix) 50 ml @ 100 mls/hr Q6H IV 04/20/17 23:00 04/21/17 05:00 (Lasix Inj) 40 mg BID@09,18 IV PUSH 04/21/17 09:00 Enoxaparin Sodium 40 mg 40 mg Q24H SQ 04/21/17 09:00 (Cordarone Inj/ D5W Inj) 259 ml @ 0 mls/hr CONTINUOUS IV 04/21/17 05:30 04/21/17 06:28 Physical Exam Vital Signs Vital Signs Date Time Temp Pulse Resp B/P Pulse Ox O2 Delivery O2 Flow Rate FiO2 04/21/17 09:01 135 04/21/17 08:00 148 04/21/17 07:15 98.0 137 17 116/67 90 04/21/17 07:00 147 04/21/17 06:30 103/69 04/21/17 06:00 97/73 04/21/17 06:00 162 04/21/17 05:30 84/55 04/21/17 05:00 166 04/21/17 05:00 99/80 04/21/17 04:30 106/62 04/21/17 04:00 96/72 04/21/17 04:00 152 04/21/17 03:19 202 04/21/17 03:15 94/71 04/21/17 03:00 93/72 04/21/17 02:55 174 04/21/17 02:45 174 93/73 04/21/17 02:00 160 04/21/17 02:00 111/70 04/21/17 01:45 102/68 04/21/17 01:30 95/65 04/21/17 01:00 160 04/21/17 01:00 89/68 04/21/17 00:00 167 04/21/17 00:00 166 14 108/78 99 04/21/17 00:00 167 04/20/17 23:00 160 04/20/17 22:35 98.3 139 111/84 95 04/20/17 20:00 118 22 92/70 96 Nasal Cannula 2 04/20/17 19:08 122 22 97/72 94 Nasal Cannula 2 04/20/17 18:37 155 20 115/67 04/20/17 17:25 152 20 101/62 04/20/17 16:16 139 20 89/62 04/20/17 15:50 154 20 100/67 04/20/17 13:46 165 20 100/70 04/20/17 13:30 202 20 110/65 04/20/17 13:27 Nasal Cannula 2 04/20/17 13:27 96 Physical Exam GENERAL: Well-nourished, well-developed patient. SKIN: Warm and dry. HEAD: Normocephalic. EYES: No scleral icterus. No injection or drainage. NECK: Supple, trachea midline. No JVD or lymphadenopathy. CARDIOVASCULAR:Irr Irr no murmurs, gallops, or rubs. RESPIRATORY: Breath sounds equal bilaterally. No accessory muscle use. GASTROINTESTINAL: Abdomen soft, non-tender, nondistended. EXTREMITIES: No cyanosis, or +edema. NEUROLOGICAL: Awake, alert, and oriented x 3. Non-focal. Laboratory Laboratory Tests Test 04/20/17 04/20/17 04/20/17 04/20/17 11:25 13:40 15:35 16:45 White Blood Count 15.2 Red Blood Count 4.56 Hemoglobin 12.4 Hematocrit 38.4 Mean Corpuscular Volume 84.0 Mean Corpuscular Hemoglobin 27.3 Mean Corpuscular Hemoglobin 32.4 Concent Red Cell Distribution Width 18.0 Platelet Count 256 Mean Platelet Volume 7.9 Neutrophils (%) (Auto) 92.1 Lymphocytes (%) (Auto) 2.7 Monocytes (%) (Auto) 4.4 Eosinophils (%) (Auto) 0.2 Basophils (%) (Auto) 0.6 Neutrophils # (Auto) 14.0 Lymphocytes # (Auto) 0.4 Monocytes # (Auto) 0.7 Eosinophils # (Auto) 0.0 Basophils # (Auto) 0.1 CBC Comment DIFF FINAL Differential Comment Prothrombin Time 14.7 Prothromb Time International 1.3 Ratio Lactic Acid Level 2.8 Ammonia 18 Sodium Level 133 Potassium Level 4.6 Chloride Level 101 Carbon Dioxide Level 21.0 Anion Gap 11 Blood Urea Nitrogen 37 Creatinine 1.25 Estimat Glomerular Filtration 59 Rate Random Glucose 89 Calcium Level 7.5 Magnesium Level 2.2 Total Bilirubin 0.9 Aspartate Amino Transf 27 (AST/SGOT) Alanine Aminotransferase 15 (ALT/SGPT) Alkaline Phosphatase 82 Total Protein 6.3 Albumin 1.3 Lipase 109 Urine Color YELLOW Urine Turbidity CLEAR Urine pH 5.5 Urine Specific [place] 1.024 Urine Protein 30 Urine Glucose (UA) NEG Urine Ketones TRACE Urine Occult Blood NEG Urine Nitrite NEG Urine Bilirubin NEG Urine Urobilinogen 2.0 Urine Leukocyte Esterase NEG Urine RBC LESS THAN 1 Urine WBC 2 Urine Hyaline Casts 6 Urine Granular Casts 2 Urine Waxy Casts 2 Urine Mucus FEW Microscopic Urinalysis Comment CULT NOT INDICATED Test 04/21/17 05:51 White Blood Count 9.1 Red Blood Count 4.07 Hemoglobin 11.3 Hematocrit 33.7 Mean Corpuscular Volume 82.8 Mean Corpuscular Hemoglobin 27.9 Mean Corpuscular Hemoglobin 33.7 Concent Red Cell Distribution Width 17.9 Platelet Count 154 Mean Platelet Volume 8.1 Neutrophils (%) (Auto) 89.0 Lymphocytes (%) (Auto) 4.5 Monocytes (%) (Auto) 5.6 Eosinophils (%) (Auto) 0.6 Basophils (%) (Auto) 0.3 Neutrophils # (Auto) 8.1 Lymphocytes # (Auto) 0.4 Monocytes # (Auto) 0.5 Eosinophils # (Auto) 0.1 Basophils # (Auto) 0.0 CBC Comment DIFF FINAL Differential Comment Sodium Level 135 Potassium Level 3.8 Chloride Level 102 Carbon Dioxide Level 23.3 Anion Gap 10 Blood Urea Nitrogen 34 Creatinine 1.24 Estimat Glomerular Filtration 60 Rate Random Glucose 78 Calcium Level 7.5 Date/Time Procedure Status Source Growth 04/20/17 13:40 Aerobic Blood Culture Worksheet Blood Peripheral Pending 04/20/17 13:40 Anaerobic Blood Culture Worksheet Blood Peripheral Pending 04/20/17 13:30 Aerobic Blood Culture - Preliminary Resulted Blood Peripheral Gram Positive Cocci 04/20/17 13:30 Anaerobic Blood Culture - Preliminary Resulted Gram Positive Cocci Result Diagram: 04/21/17 0551 04/21/17 0551 Imaging Last Impressions Chest X-Ray 04/20/17 0000 Signed Impressions: Service Date/Time: Thursday, April 20, 2017 21:00 - CONCLUSION: Bilateral lower lung consolidation and pleural effusion. Kwaku Haro MD Abdomen/Pelvis CT 04/20/17 0000 Signed Impressions: Service Date/Time: Thursday, April 20, 2017 13:56 - CONCLUSION: 1. Moderate volume free fluid in the abdomen and pelvis with possible associated peritoneal thickening. Thickening of the peritoneal lining can be seen with infection. 2. Large right and moderate size left pleural effusion with associated compressive atelectasis. 3. There is an umbilical hernia containing fluid and fat and fluid containing hernia superior and to the left of the umbilicus. This hernia also contains a portion of the transverse colon. 4. Nonacute findings include changes related to chronic liver disease including recanalized paraumbilical vein and bilateral gynecomastia. 5. Other nonacute findings include cholelithiasis and moderate atherosclerotic disease. Mushtaq Alexis MD Assessment and Plan Problem List: (1) Atrial fibrillation with RVR Assessment and Plan: 57 y/o M with Afib with RVR in the setting of sepsis. He has 2/2 positive blood cultures to Gram + cocci. Remains afebrile but with borderline low BP. He has no CV complaints, however on high doses of Cardizem and Amio. Afib likely the results of underlying sepsis thus treat accordingly. Recommendations: 1. Treat underlying cause for Afib, sepsis 2. ID consult 3. Consider transfer to ICU 4. 2Dechocardiogram 5. IVF's and supportive care Case has been discussed with attending of record Thank you for the opportunity to participate in the care of this patient. (2) HTN (hypertension) (3) Ascites (4) Sepsis Problem Qualifiers (1) Ascites: Qualified Code: K70.31 - Ascites due to alcoholic cirrhosis (2) Sepsis: Qualified Code: A41.9 - Sepsis, due to unspecified organism Shahid Foy MD Apr 21, 2017 10:40 Shahid Foy MD Apr 21, 2017 10:40
[2017-04-21] MEDS ORDERED: LIDOCAINE HCL 1% PF 30 ML VIAL ONE (11:07)
[2017-04-21] MEDS ORDERED: ATROPINE SULFATE 1 MG/10 ML SYRINGE ONE (11:28)
[2017-04-21] MEDS ORDERED: EPINEPHrine HCL (1:10,000) 1 MG/10 ML SYRINGE ONE (11:28)
--- NOTE | 2017-04-21 12:18 | PD.RAD ---
Post US Procedure Prog Note Pre Procedure Diagnosis: (1) Ascites Post Procedure Diagnosis: (1) Ascites Procedure Date: Apr 21, 2017 Supervising Radiologist: Mushtaq Alexis Estimated blood loss: none. Anesthesia: Local Plan of Activity Patient to Unit: Other Patient Condition: Good See PACS Report for procedural detail/treatment Drainage Procedure Procedure 1 Imaging Guidance: Ultrasound Side: Right Procedure Type: Paracentesis Fluid Removal (CCs): 650 Fluid Description: Cloudy, Yellow Findings: Ultrasound demonstrates the ascites to be very complex with innumerable septations. This makes most of the fluid unable to be aspirated percutaneously. Plan return to floor. specimen to lab as ordered. Mushtaq Alexis MD Apr 21, 2017 12:18
--- NOTE | 2017-04-21 12:21 | RADRPT ---
EXAM DATE/TIME: 04/21/2017 11:07 [facility] COMPARISON: CT ABDOMEN & PELVIS W/O CONTRAST, April 20, 2017, 13:56. US GUIDED ABD PARACENTESIS, January 14, 2017 , 9:01. INDICATIONS : Ascites. MEDICAL HISTORY : Hypertension. Gastroesophageal reflux disease. Missing teeth. Seizures. Atrial fibrillation. Sleep a pnea. Dyspnea. Arthritis. Cirrhosis. SURGICAL HISTORY : Tracheostomy. ENCOUNTER: Subsequent ACUITY: 1 week PAIN SCORE: 1/10 LOCATION: Right lower quadrant FLUID: Total volume of 650 cc of clear, yellow fluid was removed. Fluid was sent to lab for ordered studies. Post procedure scanning reveals no hematoma or other complication. TECHNIQUE: 1. Ultrasound guidance for abdominal paracentesis. 2. Paracentesis. The risks, benefits, and alternatives to ultrasound guided paracentesis were explained to the patient in detail including the risk of bleeding and infection. Written and verbal informed consent was obt ained. With the patient on the ultrasound table, ultrasound imaging was used to select the most appropriate approach for paracentesis. The fluid within the abdomen and pelvis is extremely complex with hypoech oic septations throughout. There is a small pocket in the right lower quadrant that appears most amen able to aspiration Overlying skin was prepped and draped in the usual sterile fashion and with a loca l anesthetic, a dermatotomy was made with an 11 blade scalpel. A 6 [place] Uil-T-eganccir catheter wa s introduced into the peritoneal cavity and fluid was collected. The patient tolerated the procedure well and left the ultrasound suite in stable condition. CONCLUSION: Uncomplicated ultrasound guided paracentesis. Please note that the fluid throughout the abdomen is e xtremely complex with septations. This can be seen when the fluid has become infected or is complicat ed by hemorrhage or malignancy. Mushtaq Alexis MD on April 21, 2017 at 12:14 Board Certified Radiologist. This report was verified electronically.
[2017-04-21] MEDS ORDERED: Vancomycin Consult Pharmacy 1 EA OTHER SCH (12:45)
[2017-04-21] MEDS ORDERED: VANCOMYCIN INJ 1,000 MG in SODIUM CHLOR 0.9% 250 ML INJ 250 ML IV ONE (12:45)
--- NOTE | 2017-04-21 12:48 | HHI.PR ---
Subjective Remarks in no acute distress. still tachycardic- had paracentesis today. d/w the RN . Objective Vitals Vital Signs Date Time Temp Pulse Resp B/P Pulse Ox O2 Delivery O2 Flow Rate FiO2 04/21/17 11:40 98.4 145 16 94/76 92 04/21/17 10:00 153 04/21/17 09:01 135 04/21/17 08:00 148 04/21/17 07:15 98.0 137 17 116/67 90 04/21/17 07:00 147 04/21/17 06:30 103/69 04/21/17 06:00 97/73 04/21/17 06:00 162 04/21/17 05:30 84/55 04/21/17 05:00 166 04/21/17 05:00 99/80 04/21/17 04:30 106/62 04/21/17 04:00 96/72 04/21/17 04:00 152 04/21/17 03:19 202 04/21/17 03:15 94/71 04/21/17 03:00 93/72 04/21/17 02:55 174 04/21/17 02:45 174 93/73 04/21/17 02:00 160 04/21/17 02:00 111/70 04/21/17 01:45 102/68 04/21/17 01:30 95/65 04/21/17 01:00 160 04/21/17 01:00 89/68 04/21/17 00:00 167 04/21/17 00:00 166 14 108/78 99 04/21/17 00:00 167 04/20/17 23:00 160 04/20/17 22:35 98.3 139 111/84 95 04/20/17 20:00 118 22 92/70 96 Nasal Cannula 2 04/20/17 19:08 122 22 97/72 94 Nasal Cannula 2 04/20/17 18:37 155 20 115/67 04/20/17 17:25 152 20 101/62 04/20/17 16:16 139 20 89/62 04/20/17 15:50 154 20 100/67 04/20/17 13:46 165 20 100/70 04/20/17 13:30 202 20 110/65 04/20/17 13:27 Nasal Cannula 2 04/20/17 13:27 96 I/O 04/20/17 04/20/17 04/20/17 04/21/17 04/21/17 04/21/17 07:00 15:00 23:00 07:00 15:00 23:00 Intake Total 240 ml Output Total 1800 ml Balance -1560 ml Intake Oral 240 ml Output Urine Total 1800 ml # Bowel Movements 0 Result Diagram: 04/21/17 0551 04/21/17 0551 Imaging Last Impressions Cyst Biopsy Asp-Paracentesis US 04/21/17 0000 Signed Impressions: Service Date/Time: April 11:07 - CONCLUSION: Uncomplicated ultrasound guided paracentesis. Please note that the fluid throughout the abdomen is extremely complex with septations. This can be seen when the fluid has become infected or is complicated by hemorrhage or malignancy. Mushtaq Alexis MD Chest X-Ray 04/20/17 0000 Signed Impressions: Service Date/Time: Thursday, April 20, 2017 21:00 - CONCLUSION: Bilateral lower lung consolidation and pleural effusion. Kwaku Haro MD Abdomen/Pelvis CT 04/20/17 0000 Signed Impressions: Service Date/Time: Thursday, April 20, 2017 13:56 - CONCLUSION: 1. Moderate volume free fluid in the abdomen and pelvis with possible associated peritoneal thickening. Thickening of the peritoneal lining can be seen with infection. 2. Large right and moderate size left pleural effusion with associated compressive atelectasis. 3. There is an umbilical hernia containing fluid and fat and fluid containing hernia superior and to the left of the umbilicus. This hernia also contains a portion of the transverse colon. 4. Nonacute findings include changes related to chronic liver disease including recanalized paraumbilical vein and bilateral gynecomastia. 5. Other nonacute findings include cholelithiasis and moderate atherosclerotic disease. Mushtaq Alexis MD Objective Remarks GENERAL: This is a well-nourished, well-developed patient, in no apparent distress. CARDIOVASCULAR: tachycardic with irregular rhythm RESPIRATORY: Clear to auscultation. Breath sounds equal bilaterally. No wheezes , rales, or rhonchi. GASTROINTESTINAL: Abdomen soft, non-tender, nondistended. Normal, active bowel sounds MUSCULOSKELETAL: Extremities without clubbing, cyanosis, or edema. NEURO: Alert & Oriented x4 to person, place, time, situation. Moves all ext x4 Procedures paracentesis Medications and IVs Current Medications Sodium Chloride 1,000 ml @ 999 mls/hr BOLUS ONCE IV Last administered on 13:45; Start 04/20/17 at 13:45; Stop 04/20/17 at 14:45; Status DC Sodium Chloride (NS 1000 ml Inj) 1,000 ml @ 999 mls/hr BOLUS ONCE IV Last administered on 04/20/17 13:45; Start 04/20/17 at 13:45; Stop 04/20/17 at 14:45; Status DC Diltiazem HCl 20 mg 20 mg ONCE ONCE IV Last administered on 04/20/17 13:44; Start 04/20/17 at 13:45; Stop 04/20/17 at 13:46; Status DC Diltiazem HCl/ Sodium Chloride (Cardizem Inj/NS Inj) 125 ml @ 0 mls/hr TITRATE IV Last administered on 04/21/17 10:34; Start 04/20/17 at 13:45 Diltiazem HCl (Cardizem Inj) 25 mg STK-MED ONCE .ROUTE ; Start 04/20/17 at 13:38 ; Stop 04/20/17 at 13:39; Status DC Metoprolol Tartrate 5 mg 5 mg ONCE ONCE IV PUSH Last administered on 04/20/17 15:37; Start 04/20/17 at 15:30; Stop 04/20/17 at 15:31; Status DC Piperacillin Sod/ Tazobactam Sod 100 ml @ 200 mls/hr ONCE ONCE IV Last administered on 04/20/17 18:13; Start 04/20/17 at 16:45; Stop 04/20/17 at 17:14; Status DC Vancomycin HCl 1000 mg/Sodium Chloride 250 ml @ 250 mls/hr ONCE ONCE IV Last administered on 04/20/17 16:55; Start 04/20/17 at 16:45; Stop 04/20/17 at 17:44; Status DC Sodium Chloride (NS 1000 ml Inj) 1,000 ml @ 100 mls/hr Q10H IV Last administered on 04/20/17 18:12; Start 04/20/17 at 16:45; Stop 04/20/17 at 20:37; Status DC Ondansetron HCl 4 mg 4 mg Q8HR PRN IV PUSH NAUSEA; Start 04/20/17 at 16:45 Piperacillin Sod/ Tazobactam Sod (Zosyn 3.375 Gm Premix) 50 ml @ 100 mls/hr Q6H IV Last administered on 04/21/17 11:00; Start 04/20/17 at 23:00 Furosemide (Lasix Inj) 40 mg ONCE ONCE IV PUSH Last administered on 04/20/17 22:07; Start 04/20/17 at 22:00; Stop 04/20/17 at 22:02; Status DC Furosemide (Lasix Inj) 40 mg BID@09,18 IV PUSH Last administered on 04/21/17 10 :35; Start 04/21/17 at 09:00 Diltiazem HCl (Cardizem Inj) 20 mg ONCE ONCE IV Last administered on 04/21/17 00:44; Start 04/21/17 at 00:15; Stop 04/21/17 at 00:16; Status DC Enoxaparin Sodium (Lovenox Inj) 40 mg Q24H SQ ; Start 04/21/17 at 09:00 Digoxin (Lanoxin Inj) 0.5 mg ONCE ONCE IV PUSH Last administered on 04/21/17 03:20; Start 04/21/17 at 03:15; Stop 04/21/17 at 03:16; Status DC Adenosine (Adenocard Inj) 6 mg ONCE ONCE IV PUSH ; Start 04/21/17 at 04:45; Stop 04/21/17 at 05:17; Status DC Adenosine (Adenocard Inj) 6 mg ONCE PRN IV PUSH if not responsive to first dos ; Start 04/21/17 at 04:45; Stop 04/21/17 at 05:17; Status DC Adenosine 12 mg 12 mg ONCE PRN IV PUSH if notResponsive to [id number]; Start at 04:45; Stop 04/21/17 at 05:17; Status DC Amiodarone HCl 150 mg/Dextrose 100 ml @ 600 mls/hr ONCE ONCE IV Last administered on 04/21/17 05:30; Start 04/21/17 at 05:30; Stop 04/21/17 at 05:39; Status DC Amiodarone HCl/ Dextrose (Cordarone Inj/ D5W Inj) 259 ml @ 0 mls/hr CONTINUOUS IV Last administered on 04/21/17 06:28; Start 04/21/17 at 05:30 Lidocaine HCl (Xylocaine-Mpf 1% Inj) 30 ml STK-MED ONCE .ROUTE Last administered on 04/21/17 11:07; Start 04/21/17 at 11:07; Stop 04/21/17 at 11:08; Status DC Atropine Sulfate (Atropine Inj) 1 mg STK-MED ONCE .ROUTE ; Start 04/21/17 at 11: 28; Stop 04/21/17 at 11:29; Status DC Epinephrine HCl (EPINEPHrine (1:10,000) INJ) 1 mg STK-MED ONCE .ROUTE ; Start at 11:28; Stop 04/21/17 at 11:29; Status DC A/P Assessment and Plan A/P Symptomatic Ascites, possible spontaneous bacterial peritonitis Abdominal CT reviewed and shows Moderate volume free fluid in the abdomen and pelvis with possible associated peritoneal thickening. Thickening of the peritoneal lining can be seen with infection. Large right and moderate size left pleural effusion with associated compressive atelectasis. There is an umbilical hernia containing fluid and fat and fluid containing hernia superior and to the left of the umbilicus. Dyspneasecondary to symptomatic ascites, worsened by fluids boluses given in ER. -Lasix 40mg given now and BID. Aggressive diuresis. Would likely need further diuresis overnight. -s/p paracentesis -consult GI Pneumonia with bilateral Pleural effusion, and/ or spontaneous bacterial peritonitis patient with dyspnea, HR 120s, wbc 15.2, lactic acid 2.8 Chest x-ray reviewed and shows Bilateral lower lung consolidation and pleural effusion. -Diuretics as above -IV antibiotics Zosyn -Blood cultures with staph. aureua -add IV Vanco -consult ID Afib RVR, unresolved after metoprolol IV -on cardizem and amiodarone drip -check echo -cardiology consult appreciated. Diarrhea, acute - Suspects this is from lactulose. Patient does not remember his med list. States that he does take one medications in the morning for diarrhea. He reports his diarrhea is only once a day in the morning as well. No previous antibiotics use. HTN, chronic currently hypotensive -Will hold home Meds for now as we are giving Cardizem and Lasix. Update med rec. Protein calorie malnutrition, suspected due to ascites and pain -Calorie count when patient no longer NPO DVT prophylaxis: Lovenox. d/w the RN. d/w . Mylene Charlton MD Apr 21, 2017 12:47
[2017-04-21 13:12] LABS: PERITONEAL LYMPHS 3 %; PERITONEAL POLYS(SEGS) 97 %; PERITONEAL WBC 27265 /MM3 (0-10)
[2017-04-21] MEDS: VANCOMYCIN 1,000 MG/NS 250 ML IV SCH ×2 (13:31)
[2017-04-21] MEDS: SODIUM CHLOR 0.9% 1000 ML INJ 1,000 ML IV SCH ×2 (13:45→22:39)
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
[2017-04-21] MEDS: ceFAZolin 2 GM PREMIX 50 ML IV SCH ×2 (14:45→22:40)
--- NOTE | 2017-04-21 14:51 | EKG ---
Date Performed: 04/20/2017 Time Performed: 13:23:23 PTAGE: 57 years EKG: ATRIAL FIBRILLATION WITH RAPID VENTRICULAR RESPONSE LOW QRS VOLTAGE NONSPECIFIC T-WAVE ABNO RMALITY When compared to previous tracing, the patient is now in atrial Fibrillation with rapid ventr icular rate. ABNORMAL ECG PREVIOUS TRACING : 12/27/2016 08.58 DOCTOR: Pallavi Arce Interpretating Date/Time 04/21/2017 14:49:50
--- NOTE | 2017-04-21 14:52 | EKG ---
Date Performed: 04/21/2017 Time Performed: 04:53:06 PTAGE: 57 years EKG: Atrial fibrillation with uncontrolled ventricular response Possible anterior infarct - age undetermined Inferior/lateral ST-T changes may be due to myocardial ischemia Generalized low QRS volt ages When compared to previous tracing, the patient is still in rapid Ventricular response, but does have a somewhat better rate Control. Abnormal ECG PREVIOUS TRACING : 04/20/2017 13.23 DOCTOR: Pallavi Arce Interpretating Date/Time 04/21/2017 14:51:35
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
[2017-04-21] MEDS: ALBUMIN HUMAN 25% 25 GM/100 ML BAGP IV SCH (16:18)
[2017-04-21] MEDS ORDERED: SODIUM CHLORID 0.9% 500 ML INJ 500 ML IV ONE (17:15)
[2017-04-21] MEDS ORDERED: SODIUM CHLOR 0.9% 1000 ML INJ 1,000 ML IV ONE (20:00)
[2017-04-22] VITALS (25 sets, daily range): BP systolic 105–122; BP diastolic 72–83; PULSE 109–169; RESP 20–30; TEMP 98.2–98.4; O2SAT 90–98
[2017-04-22] MEDS ORDERED: CHLORHEXIDINE GLUCONATE 2 % 1 PACK (2 CLOTHS)(extra cloths) TOPICAL PRN (02:45)
[2017-04-22] MEDS: CHLORHEXIDINE GLUCONATE 2 % 1 PACK (2 CLOTHS)(taper/protocol) TOPICAL SCH (04:00)
[2017-04-22] MEDS: AMIODARONE IV SCH ×4 (04:20→21:09)
[2017-04-22] MEDS: DEXTROSE 5% IV SCH ×4 (04:20→21:09)
[2017-04-22] MEDS: ALBUMIN HUMAN 25% 25 GM/100 ML BAGP IV SCH ×2 (04:20→16:56)
[2017-04-22] MEDS: WATER IV SCH ×4 (04:20→21:09)
[2017-04-22] MEDS: DILTIAZEM INJ 125 MG in SODIUM CHLORIDE 0.9% INJ 100 ML IV SCH ×3 (04:21→21:09)
[2017-04-22] MEDS: SODIUM CHLOR 0.9% 1000 ML INJ 1,000 ML IV SCH ×3 (05:34→22:33)
[2017-04-22] MEDS: ceFAZolin 2 GM PREMIX 50 ML IV SCH ×3 (07:28→21:07)
[2017-04-22] MEDS: VANCOMYCIN 1,000 MG/NS 250 ML IV SCH ×2 (07:45)
[2017-04-22] MEDS: ENOXAPARIN SODIUM 40 MG/0.4 ML SYRINGE SQ SCH (07:45)
[2017-04-22 07:47] LABS: BICARBONATE 20.6 MEQ/L (21.0-32.0)
[2017-04-22] MEDS: FUROSEMIDE 40 MG/4 ML VIAL IV PUSH SCH (07:47)
[2017-04-22 07:50] LABS: POTASSIUM 2.5 MEQ/L (3.5-5.1)
[2017-04-22] MEDS ORDERED: SODIUM PHOSPHATE INJ 30 MMOL in SODIUM CHLOR 0.9% 250 ML INJ 240 ML IV PRN (08:00)
[2017-04-22] MEDS ORDERED: MAGNESIUM SULFATE INJ 2 GM in SODIUM CHLORIDE 0.9% INJ 96 ML IV PRN (08:00)
[2017-04-22] MEDS ORDERED: POTASSIUM CHLORIDE 25 MEQ EFFERVESCENT TAB PO PRN (08:00)
[2017-04-22] MEDS ORDERED: POTASSIUM PHOSPHATE MONOBASIC 500 MG TAB PO/TUBE PRN (08:00)
[2017-04-22] MEDS ORDERED: POTASSIUM CHLOR 40 MEQ PREMIX 100 ML IV PRN ×2 (08:00)
[2017-04-22] MEDS ORDERED: POTASSIUM PHOSPHATE INJ 30 MMOL in SODIUM CHLOR 0.9% 250 ML INJ 250 ML IV PRN (08:00)
[2017-04-22] MEDS ORDERED: MAGNESIUM OXIDE 400 MG TAB PO PRN (08:00)
[2017-04-22] MEDS ORDERED: MAGNESIUM SULFATE INJ 4 GM in SODIUM CHLORIDE 0.9% INJ 92 ML IV PRN (08:00)
--- NOTE | 2017-04-22 08:06 | HHI.PR ---
Subjective Remarks f/u; bacteremia/a-fib in no acute distress. denies chest pain, sob- has mild on and off abdominal pain. afebrile. still tachycardic and on cardizem and amiodarone drip. d/w the RN. Objective Vitals Vital Signs Date Time Temp Pulse Resp B/P Pulse Ox O2 Delivery O2 Flow Rate FiO2 04/22/17 06:00 134 04/22/17 04:00 98.3 140 21 112/77 96 04/22/17 04:00 139 04/22/17 02:00 139 04/22/17 01:10 97 Nasal Cannula 1.50 04/22/17 00:00 98.4 139 20 105/72 97 04/22/17 00:00 139 04/21/17 23:00 137 04/21/17 22:00 141 04/21/17 22:00 141 04/21/17 21:00 147 04/21/17 20:00 98.9 141 21 100/67 96 04/21/17 20:00 141 04/21/17 20:00 141 04/21/17 19:00 141 04/21/17 18:00 146 04/21/17 18:00 146 04/21/17 16:13 107/66 04/21/17 16:00 159 04/21/17 15:00 98.3 145 22 93/75 99 04/21/17 15:00 131 04/21/17 14:05 132 04/21/17 13:30 98.4 134 19 91/63 93 04/21/17 13:00 142 04/21/17 12:30 109 96/78 04/21/17 12:00 133 04/21/17 11:40 98.4 145 16 94/76 92 04/21/17 11:00 98.4 153 20 94/76 92 04/21/17 11:00 141 04/21/17 10:00 153 04/21/17 09:01 135 I/O 04/21/17 04/21/17 04/21/17 04/22/17 04/22/17 04/22/17 07:00 15:00 23:00 07:00 15:00 23:00 Intake Total 240 ml 2911 ml 1037 ml Output Total 1800 ml 2200 ml 350 ml Balance -1560 ml 711 ml 687 ml Intake Oral 240 ml IV Total 2911 ml 1037 ml Output Urine Total 1800 ml 2200 ml 350 ml # Bowel Movements 0 Result Diagram: 04/21/17 0551 04/21/17 0551 Imaging Last Impressions Cyst Biopsy Asp-Paracentesis US 04/21/17 0000 Signed Impressions: Service Date/Time: April 11:07 - CONCLUSION: Uncomplicated ultrasound guided paracentesis. Please note that the fluid throughout the abdomen is extremely complex with septations. This can be seen when the fluid has become infected or is complicated by hemorrhage or malignancy. Mushtaq Alexis MD Chest X-Ray 04/20/17 0000 Signed Impressions: Service Date/Time: Thursday, April 20, 2017 21:00 - CONCLUSION: Bilateral lower lung consolidation and pleural effusion. Kwaku Haro MD Abdomen/Pelvis CT 04/20/17 0000 Signed Impressions: Service Date/Time: Thursday, April 20, 2017 13:56 - CONCLUSION: 1. Moderate volume free fluid in the abdomen and pelvis with possible associated peritoneal thickening. Thickening of the peritoneal lining can be seen with infection. 2. Large right and moderate size left pleural effusion with associated compressive atelectasis. 3. There is an umbilical hernia containing fluid and fat and fluid containing hernia superior and to the left of the umbilicus. This hernia also contains a portion of the transverse colon. 4. Nonacute findings include changes related to chronic liver disease including recanalized paraumbilical vein and bilateral gynecomastia. 5. Other nonacute findings include cholelithiasis and moderate atherosclerotic disease. Mushtaq Alexis MD Objective Remarks GENERAL: in no apparent respiratory distress. CARDIOVASCULAR: tachycardic with irregular rhythm RESPIRATORY: Clear to auscultation. Breath sounds equal bilaterally. No wheezes , rales, or rhonchi. GASTROINTESTINAL: Abdomen soft, non-tender,distended. Normal, active bowel sounds MUSCULOSKELETAL: Extremities without clubbing, cyanosis, or edema. NEURO: Alert & Oriented x4 to person, place, time, situation. Moves all ext x4 Procedures paracentesis Medications and IVs Current Medications Sodium Chloride 1,000 ml @ 999 mls/hr BOLUS ONCE IV Last administered on t 13:45; Start 04/20/17 at 13:45; Stop 04/20/17 at 14:45; Status DC Sodium Chloride (NS 1000 ml Inj) 1,000 ml @ 999 mls/hr BOLUS ONCE IV Last administered on 04/20/17 13:45; Start 04/20/17 at 13:45; Stop 04/20/17 at 14:45; Status DC Diltiazem HCl 20 mg 20 mg ONCE ONCE IV Last administered on 04/20/17 13:44; Start 04/20/17 at 13:45; Stop 04/20/17 at 13:46; Status DC Diltiazem HCl/ Sodium Chloride (Cardizem Inj/NS Inj) 125 ml @ 0 mls/hr TITRATE IV Last administered on 04/22/17 04:21; Start 04/20/17 at 13:45 Diltiazem HCl (Cardizem Inj) 25 mg STK-MED ONCE .ROUTE ; Start 04/20/17 at 13:38 ; Stop 04/20/17 at 13:39; Status DC Metoprolol Tartrate 5 mg 5 mg ONCE ONCE IV PUSH Last administered on 04/20/17 15:37; Start 04/20/17 at 15:30; Stop 04/20/17 at 15:31; Status DC Piperacillin Sod/ Tazobactam Sod 100 ml @ 200 mls/hr ONCE ONCE IV Last administered on 04/20/17 18:13; Start 04/20/17 at 16:45; Stop 04/20/17 at 17:14; Status DC Vancomycin HCl 1000 mg/Sodium Chloride 250 ml @ 250 mls/hr ONCE ONCE IV Last administered on 04/20/17 16:55; Start 04/20/17 at 16:45; Stop 04/20/17 at 17:44; Status DC Sodium Chloride (NS 1000 ml Inj) 1,000 ml @ 100 mls/hr Q10H IV Last administered on 04/20/17 18:12; Start 04/20/17 at 16:45; Stop 04/20/17 at 20:37; Status DC Ondansetron HCl 4 mg 4 mg Q8HR PRN IV PUSH NAUSEA; Start 04/20/17 at 16:45 Piperacillin Sod/ Tazobactam Sod (Zosyn 3.375 Gm Premix) 50 ml @ 100 mls/hr Q6H IV Last administered on 04/21/17 11:00; Start 04/20/17 at 23:00; Stop at 13:57; Status DC Furosemide (Lasix Inj) 40 mg ONCE ONCE IV PUSH Last administered on 04/20/17 22:07; Start 04/20/17 at 22:00; Stop 04/20/17 at 22:02; Status DC Furosemide (Lasix Inj) 40 mg BID@09,18 IV PUSH Last administered on 04/21/17 10 :35; Start 04/21/17 at 09:00 Diltiazem HCl (Cardizem Inj) 20 mg ONCE ONCE IV Last administered on 04/21/17 00:44; Start 04/21/17 at 00:15; Stop 04/21/17 at 00:16; Status DC Enoxaparin Sodium (Lovenox Inj) 40 mg Q24H SQ ; Start 04/21/17 at 09:00 Digoxin (Lanoxin Inj) 0.5 mg ONCE ONCE IV PUSH Last administered on 04/21/17 03:20; Start 04/21/17 at 03:15; Stop 04/21/17 at 03:16; Status DC Adenosine (Adenocard Inj) 6 mg ONCE ONCE IV PUSH ; Start 04/21/17 at 04:45; Stop 04/21/17 at 05:17; Status DC Adenosine (Adenocard Inj) 6 mg ONCE PRN IV PUSH if not responsive to first dos ; Start 04/21/17 at 04:45; Stop 04/21/17 at 05:17; Status DC Adenosine 12 mg 12 mg ONCE PRN IV PUSH if notResponsive to [id number]; Start at 04:45; Stop 04/21/17 at 05:17; Status DC Amiodarone HCl 150 mg/Dextrose 100 ml @ 600 mls/hr ONCE ONCE IV Last administered on 04/21/17 05:30; Start 04/21/17 at 05:30; Stop 04/21/17 at 05:39; Status DC Amiodarone HCl/ Dextrose (Cordarone Inj/ D5W Inj) 259 ml @ 0 mls/hr CONTINUOUS IV Last administered on 04/22/17 04:20; Start 04/21/17 at 05:30; Stop 04/22/17 at 06:27; Status DC Lidocaine HCl (Xylocaine-Mpf 1% Inj) 30 ml STK-MED ONCE .ROUTE Last administered on 04/21/17 11:07; Start 04/21/17 at 11:07; Stop 04/21/17 at 11:08; Status DC Atropine Sulfate (Atropine Inj) 1 mg STK-MED ONCE .ROUTE ; Start 04/21/17 at 11: 28; Stop 04/21/17 at 11:29; Status DC Epinephrine HCl 1 mg 1 mg STK-MED ONCE .ROUTE ; Start 04/21/17 at 11:28; Stop 04/21/17 at 11:29; Status DC Vancomycin HCl 1000 mg/Sodium Chloride 250 ml @ 250 mls/hr ONCE ONCE IV ; Start 04/21/17 at 12:45; Stop 04/21/17 at 13:44; Status UNV Pharmacy Profile Note 0 ml @ 0 mls/hr UNSCH OTHER ; Start 04/21/17 at 12:45 Vancomycin HCl/ Sodium Chloride (Vancomycin Inj/ NS 250 ml Inj) 250 ml @ 250 mls/hr Q18H IV Last administered on 04/21/17 13:31; Start 04/21/17 at 14:00 Miscellaneous Information SPECIFIC LAB TO BE ... ONCE ONCE .XX ; Start at 19:45; Stop 04/23/17 at 19:46 Sodium Chloride 1,000 ml @ 125 mls/hr Q8H IV Last administered on 04/22/17 05: 34; Start 04/21/17 at 13:45 Cefazolin Sodium/ Dextrose (Ancef 2 Gm Premix) 50 ml @ 100 mls/hr Q8H IV Last administered on 04/22/17 07:28; Start 04/21/17 at 14:00 Albumin Human 25 gm 25 gm Q12H IV Last administered on 04/22/17 04:20; Start at 16:00 Sodium Chloride 500 ml @ 0 mls/hr NOW ONCE IV ; Start 04/21/17 at 17:15; Stop at 17:16; Status DC Sodium Chloride (NS 1000 ml Inj) 1,000 ml @ 0 mls/hr NOW ONCE IV Last administered on 04/21/17 22:39; Start 04/21/17 at 20:00; Stop 04/21/17 at 20:01; Status DC Miscellaneous Information Patient in critical care unit? Ass... [id number] .XX Last administered on 04/22/17 02:45; Start 04/22/17 at 02:45 Chlorhexidine Gluconate (Chlorhexidine 2% Cloth) 3 pack DAILY@04 TOPICAL Last administered on 04/22/17 04:00; Start 04/22/17 at 04:00; Stop 04/26/17 at 04:01 Chlorhexidine Gluconate 3 pack 3 pack UNSCH PRN TOPICAL HYGIENIC CARE; Start at 02:45; Stop 04/27/17 at 02:38 Amiodarone HCl/ Dextrose (Cordarone Inj/ D5W Inj) 259 ml @ 0 mls/hr CONTINUOUS IV ; Start 04/22/17 at 06:30 A/P Assessment and Plan A/P Symptomatic Ascites Abdominal CT reviewed and shows Moderate volume free fluid in the abdomen and pelvis with possible associated peritoneal thickening. Thickening of the peritoneal lining can be seen with infection. Large right and moderate size left pleural effusion with associated compressive atelectasis. There is an umbilical hernia containing fluid and fat and fluid containing hernia superior and to the left of the umbilicus. Dyspneasecondary to symptomatic ascites, worsened by fluids boluses given in ER. -s/p paracentesis -hold lasix due to low-normal BP -GI evaluation appreciated. severe sepsis Pneumonia with bilateral Pleural effusion, and/ or spontaneous bacterial peritonitis patient with dyspnea, HR 120s, wbc 15.2, lactic acid 2.8 Chest x-ray reviewed and shows Bilateral lower lung consolidation and pleural effusion. -IV antibiotics per ID -Blood cultures with staph. aureua -check echo -ID consult appreciated. Afib RVR, still tachycardic- -on cardizem and amiodarone drip -check echo -cardiology following. HTN, chronic currently hypotensive -Will hold home Meds for now as we are giving Cardizem and Lasix. Update med rec. Protein calorie malnutrition, suspected due to ascites and pain -senior commissary agent consult DVT prophylaxis: Lovenox. will monitor in ICU. d/w the Mylene Oliveros MD Apr 22, 2017 08:06
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
[2017-04-22] MEDS: METOPROLOL TARTRATE 25 MG TAB PO SCH ×2 (10:51→21:07)
--- NOTE | 2017-04-22 13:17 | PD.CARD.PN ---
Subjective Subjective Remarks No CV complaints Still in Afib with RVR Objective Medications Current Medications Medications (Trade) Dose Ordered Sig/Rhea Route Start Time Stop Time Status Last Admin (Cardizem Inj/NS Inj) 125 ml @ 0 mls/hr TITRATE IV 04/20/17 13:45 04/22/17 04:21 (Zofran Inj) 4 mg Q8HR PRN IV PUSH 04/20/17 16:45 (Lasix Inj) 40 mg BID@09,18 IV PUSH 04/21/17 09:00 Hold 04/21/17 10:35 Enoxaparin Sodium 40 mg 40 mg Q24H SQ 04/21/17 09:00 04/22/17 07:45 Pharmacy Profile Note 0 ml @ 0 mls/hr UNSCH OTHER 04/21/17 12:45 (Vancomycin Inj/ NS 250 ml Inj) 250 ml @ 250 mls/hr Q18H IV 04/21/17 14:00 04/22/17 07:45 Miscellaneous Information SPECIFIC LAB TO BE STACY... ONCE ONCE .XX 04/23/17 19:45 04/23/17 19:46 Sodium Chloride 1,000 ml @ 125 mls/hr Q8H IV 04/21/17 13:45 04/22/17 05:34 (Ancef 2 Gm Premix) 50 ml @ 100 mls/hr Q8H IV 04/21/17 14:00 04/22/17 07:28 (Albumin 25% Inj) 25 gm Q12H IV 04/21/17 16:00 04/22/17 04:20 Miscellaneous Information Patient in critical care unit? Ass... Q361D .XX 04/22/17 02:45 04/22/17 02:45 (Chlorhexidine 2% Cloth) 3 pack DAILY@04 TOPICAL 04/22/17 04:00 04/26/17 04:01 04/22/17 04:00 Chlorhexidine Gluconate 3 pack 3 pack UNSCH PRN TOPICAL 04/22/17 02:45 04/27/17 02:38 Amiodarone HCl 450 mg/Dextrose 259 ml @ 0 mls/hr CONTINUOUS IV 04/22/17 06:30 Potassium Chloride 100 ml @ 50 mls/hr Q2H PRN IV 04/22/17 08:00 04/22/17 08:49 (KCl 20 Meq Premix Inj) 100 ml @ 50 mls/hr Q2H PRN IV 04/22/17 08:00 Potassium Bicarb/ Potassium Chloride 50 meq 50 meq UNSCH PRN PO 04/22/17 08:00 Potassium Chloride 100 ml @ 25 mls/hr UNSCH PRN IV 04/22/17 08:00 Potassium Chloride 100 ml @ 50 mls/hr Q2H PRN IV 04/22/17 08:00 (Magnesium Sulfate Inj/NS Inj) 100 ml @ 50 mls/hr UNSCH PRN IV 04/22/17 08:00 Magnesium Oxide 800 mg 800 mg UNSCH PRN PO 04/22/17 08:00 (Magnesium Sulfate Inj/NS Inj) 100 ml @ 50 mls/hr UNSCH PRN IV 04/22/17 08:00 Potassium Phosphate 2000 mg 2,000 mg Q4H PRN PO 04/22/17 08:00 (Sodium Phosphate Inj/NS 250 ml Inj) 250 ml @ 42 mls/hr UNSCH PRN IV 04/22/17 08:00 Potassium Phosphate 2000 mg 2,000 mg UNSCH PRN PO/TUBE 04/22/17 08:00 (Potassium Phosphate Inj/NS 250 ml Inj) 260 ml @ 42 mls/hr UNSCH PRN IV 04/22/17 08:00 04/22/17 11:25 (Lopressor) 25 mg BID PO 04/22/17 10:30 04/22/17 10:51 Vital Signs / I&O Vital Signs Date Time Temp Pulse Resp B/P Pulse Ox O2 Delivery O2 Flow Rate FiO2 04/22/17 13:00 119 04/22/17 13:00 119 30 108/72 93 04/22/17 12:30 130 24 105/73 95 04/22/17 12:30 130 04/22/17 12:00 133 04/22/17 12:00 133 24 111/76 97 04/22/17 10:30 164 04/22/17 10:00 147 04/22/17 10:00 147 27 122/83 93 04/22/17 09:30 141 21 106/83 04/22/17 09:30 141 04/22/17 09:00 143 04/22/17 09:00 143 22 108/73 92 04/22/17 08:30 143 22 112/79 92 04/22/17 08:30 143 04/22/17 08:00 147 04/22/17 08:00 147 26 110/83 91 04/22/17 06:00 134 04/22/17 04:00 98.3 140 21 112/77 96 04/22/17 04:00 139 04/22/17 02:00 139 04/22/17 01:10 97 Nasal Cannula 1.50 04/22/17 00:00 98.4 139 20 105/72 97 04/22/17 00:00 139 04/21/17 23:00 137 04/21/17 22:00 141 04/21/17 22:00 141 04/21/17 21:00 147 04/21/17 20:00 98.9 141 21 100/67 96 04/21/17 20:00 141 04/21/17 20:00 141 04/21/17 19:00 141 04/21/17 18:00 146 04/21/17 18:00 146 04/21/17 16:13 107/66 04/21/17 16:00 159 04/21/17 15:00 98.3 145 22 93/75 99 04/21/17 15:00 131 04/21/17 14:05 132 04/21/17 13:30 98.4 134 19 91/63 93 I/O 04/21/17 04/21/17 04/21/17 04/22/17 04/22/17 04/22/17 07:00 15:00 23:00 07:00 15:00 23:00 Intake Total 240 ml 2911 ml 1037 ml Output Total 1800 ml 2200 ml 350 ml Balance -1560 ml 711 ml 687 ml Intake Oral 240 ml IV Total 2911 ml 1037 ml Output Urine Total 1800 ml 2200 ml 350 ml # Bowel Movements 0 Physical Exam GENERAL: Well-nourished, well-developed patient. SKIN: Warm and dry. HEAD: Normocephalic. EYES: No scleral icterus. No injection or drainage. NECK: Supple, trachea midline. No JVD or lymphadenopathy. CARDIOVASCULAR: Regular rate and rhythm without murmurs, gallops, or rubs. RESPIRATORY: Breath sounds equal bilaterally. No accessory muscle use. GASTROINTESTINAL: Distended, non-tender EXTREMITIES: No cyanosis, or edema. NEUROLOGICAL: Awake, alert, and oriented x 3. Non-focal. Laboratory Laboratory Tests Test 04/21/17 04/22/17 17:00 07:07 Nasal Screen MRSA (PCR) MRSA NOT DETECTED Sodium Level 137 MEQ/L Potassium Level 2.5 MEQ/L Chloride Level 105 MEQ/L Carbon Dioxide Level 20.6 MEQ/L Anion Gap 11 MEQ/L Blood Urea Nitrogen 24 MG/DL Creatinine 1.15 MG/DL Estimat Glomerular Filtration 65 ML/MIN Rate Random Glucose 102 MG/DL Calcium Level 7.5 MG/DL Phosphorus Level 2.0 MG/DL Tumor Marker Alpha Fetoprotein 1.7 NG/ML Imaging Last Impressions Cyst Biopsy Asp-Paracentesis US 04/21/17 0000 Signed Impressions: Service Date/Time: April 11:07 - CONCLUSION: Uncomplicated ultrasound guided paracentesis. Please note that the fluid throughout the abdomen is extremely complex with septations. This can be seen when the fluid has become infected or is complicated by hemorrhage or malignancy. Mushtaq Alexis MD Chest X-Ray 04/20/17 0000 Signed Impressions: Service Date/Time: Thursday, April 20, 2017 21:00 - CONCLUSION: Bilateral lower lung consolidation and pleural effusion. Kwaku Haro MD Abdomen/Pelvis CT 04/20/17 0000 Signed Impressions: Service Date/Time: Thursday, April 20, 2017 13:56 - CONCLUSION: 1. Moderate volume free fluid in the abdomen and pelvis with possible associated peritoneal thickening. Thickening of the peritoneal lining can be seen with infection. 2. Large right and moderate size left pleural effusion with associated compressive atelectasis. 3. There is an umbilical hernia containing fluid and fat and fluid containing hernia superior and to the left of the umbilicus. This hernia also contains a portion of the transverse colon. 4. Nonacute findings include changes related to chronic liver disease including recanalized paraumbilical vein and bilateral gynecomastia. 5. Other nonacute findings include cholelithiasis and moderate atherosclerotic disease. Mushtaq Alexis MD Assessment and Plan Problem List: (1) Atrial fibrillation with RVR Assessment and Plan: 57 y/o M with Afib with RVR in the setting of sepsis, PNA , ascites ? spontaneous bacterial peritonitis. He has 2/2 positive blood cultures to Gram + cocci. Remains afebrile but with borderline low BP. He has no CV complaints, however on high doses of Cardizem and Amio. Afib likely the results of underlying sepsis thus treat accordingly. Recommendations: 1. Treat underlying cause for Afib, sepsis 2. Cont rate control. If BP an issue can load with Digoxin if no contraindications 2. ID/GI follow up 4. 2Dechocardiogram 5. Supportive care (2) HTN (hypertension) (3) Ascites (4) Sepsis Problem Qualifiers (1) Ascites: Qualified Code: K70.31 - Ascites due to alcoholic cirrhosis (2) Sepsis: Qualified Code: A41.9 - Sepsis, due to unspecified organism Shahid Foy MD Apr 22, 2017 13:17 (1) Ascites: Qualified Code: K70.31 - Ascites due to alcoholic cirrhosis (2) Sepsis: Qualified Code: A41.9 - Sepsis, due to unspecified organism Shahid Foy MD Apr 22, 2017 13:17
--- NOTE | 2017-04-22 14:56 | HHI.HCPN ---
Reason for visit a. To assist with evaluation and management of symptoms including: confusion , pain, decreased appetite, dyspnea b. To assist medical decision maker(s) with: better understanding of current medical conditions; weighing benefits/burdens of medical treatment options; making medical treatment decisions. . Subjective/Interval History Mr. Forrest is a 56 year old male patient with cirrhosis, osteoarthritis, atrial fibrillation, hypertension, GERD, sleep apnea, central pontine myelinolysis, EtOH abuse and ascites requiring paracentesis admitted to [facility] ED on 04/20/2017 for management of sepsis, failure to thrive and dehydration. Abdomen is distended, nontender status post a CT-guided abdominal ultrasound with paracentesis was completed on 04/21/2017 for ascites with a total of 650 cc of clear, yellow fluid removed. Results suggestive of SBP, on antibiotics. Cytology and cultures pending. + Umbilical hernia; + hernia LLQ. Patient denies nausea, denies vomiting. Denies nausea, vomiting, diarrhea reported today. Appetite remains poor. Albumin 1.3. BMI 20.5. Dietary following. Infectious disease following for evaluation/management of sepsis and bacteremia. Afebrile. Leukocytosis resolved; WBC 9.1 on 04/21/17. But cultures on 04/20/17 growing + staph aureus; follow-up blood cultures 04/21/17 pending. Per ID, tapped loculated peritoneal fluid-lid was exudative . C/S pending. Patient remains on Ancef and vancomycin. Cardiology following secondary to atrial fibrillation with RVR. Tachycardic- heart rate 130-150s; BP 384201/6377. On Cardizem and amiodarone drip. No cardiovascular complaints. Sodium: 137, potassium 2.5, chloride 105, carbon dioxide 20.6, glucose 102, calcium 7.5, phosphorus 2.0 BUN: 24, creatinine 1.15, GFR 65 Patient is confused, oriented to self only. Patient pulling of oxygen and pulse oximeter. He is talking about having a constitution party but not wanting us to tell everyone stating we need to be careful so we let attending the constitution party. . Family/friend interactions Attempted to contact patient's son to provide a clinical update, msg left on voice mail. Awaiting return phone call. . Advance Directives Advance Directive Specifics Documented care wishes: No documented care wishes have been completed . Significant change in goals: Goals remain aggressive Objective Vital Signs Date Time Temp Pulse Resp B/P Pulse Ox O2 Delivery O2 Flow Rate FiO2 04/22/17 13:00 119 04/22/17 13:00 119 30 108/72 93 04/22/17 12:30 130 24 105/73 95 04/22/17 12:30 130 04/22/17 12:00 133 04/22/17 12:00 133 24 111/76 97 04/22/17 10:30 164 04/22/17 10:00 147 04/22/17 10:00 147 27 122/83 93 04/22/17 09:30 141 21 106/83 04/22/17 09:30 141 04/22/17 09:00 143 04/22/17 09:00 143 22 108/73 92 04/22/17 08:30 143 22 112/79 92 04/22/17 08:30 143 04/22/17 08:00 147 04/22/17 08:00 147 26 110/83 91 04/22/17 06:00 134 04/22/17 04:00 98.3 140 21 112/77 96 04/22/17 04:00 139 04/22/17 02:00 139 04/22/17 01:10 97 Nasal Cannula 1.50 04/22/17 00:00 98.4 139 20 105/72 97 04/22/17 00:00 139 04/21/17 23:00 137 04/21/17 22:00 141 04/21/17 22:00 141 04/21/17 21:00 147 04/21/17 20:00 98.9 141 21 100/67 96 04/21/17 20:00 141 04/21/17 20:00 141 04/21/17 19:00 141 04/21/17 18:00 146 04/21/17 18:00 146 04/21/17 16:13 107/66 04/21/17 16:00 159 04/21/17 15:00 98.3 145 22 93/75 99 04/21/17 15:00 131 Intake & Output 04/22/17 04/22/17 07:00 19:00 Intake Total 3948 ml Output Total 1600 ml Balance 2348 ml IV Total 3948 ml Output Urine Total 1600 ml . Physical Exam CONSTITUTIONAL/GENERAL: This is a frail, cachectic male patient who appears older than his stated age. TUBES/LINES/DRAINS: PIV x 3, nasal cannula, urinary catheter, soft restraints SKIN: Ecchymoses on upper extremities. Bandage on left abdomen status post paracentesis. Skin temperature appropriate. Not diaphoretic. HEAD: Atraumatic. Normocephalic. EYES: Pupils equal and round and reactive. No injection or drainage. Fundi not examined. ENT: Hearing grossly normal. Nose without bleeding or purulent drainage. NECK: Trachea midline. CARDIOVASCULAR: Irregularly irregular without murmurs, gallops, or rubs. Peripheral pulses symmetric. RESPIRATORY/CHEST: Respirations symmetrical, unlabored. Breath sounds equal bilaterally. No wheezes, rales, or rhonchi. GASTROINTESTINAL: Abdomen distended, nontender. Large umbilical hernia. GENITOURINARY: Without palpable bladder distension. Palmer catheter in place. MUSCULOSKELETAL: Extremities without clubbing, cyanosis, or edema. LYMPHATICS: No palpable cervical or supraclavicular adenopathy. NEUROLOGICAL: Confused, oriented to self only. Attempting to pull off nasal cannula, pulse oximeter. Speech is primarily nonsensical, follows some simple commands intermittently PSYCHIATRIC: No apparent hallucinations or other psychotic thought process. . . Diagnostic Tests Laboratory Laboratory Tests Test 04/20/17 04/20/17 04/20/17 04/20/17 11:25 13:40 15:35 16:45 White Blood Count 15.2 TH/MM3 (4.0-11.0) Red Blood Count 4.56 MIL/MM3 (4.50-5.90) Hemoglobin 12.4 GM/DL (13.0-17.0) Hematocrit 38.4 % (39.0-51.0) Mean Corpuscular Volume 84.0 FL (80.0-100.0) Mean Corpuscular Hemoglobin 27.3 PG (27.0-34.0) Mean Corpuscular Hemoglobin 32.4 % Concent (32.0-36.0) Red Cell Distribution Width 18.0 % (11.6-17.2) Platelet Count 256 TH/MM3 (150-450) Mean Platelet Volume 7.9 FL (7.0-11.0) Neutrophils (%) (Auto) 92.1 % (16.0-70.0) Lymphocytes (%) (Auto) 2.7 % (9.0-44.0) Monocytes (%) (Auto) 4.4 % (0.0-8.0) Eosinophils (%) (Auto) 0.2 % (0.0-4.0) Basophils (%) (Auto) 0.6 % (0.0-2.0) Neutrophils # (Auto) 14.0 TH/MM3 (1.8-7.7) Lymphocytes # (Auto) 0.4 TH/MM3 (1.0-4.8) Monocytes # (Auto) 0.7 TH/MM3 (0-0.9) Eosinophils # (Auto) 0.0 TH/MM3 (0-0.4) Basophils # (Auto) 0.1 TH/MM3 (0-0.2) CBC Comment DIFF FINAL Differential Comment Prothrombin Time 14.7 SEC (9.8-11.6) Prothromb Time International 1.3 RATIO Ratio Lactic Acid Level 2.8 mmol/L (0.4-2.0) Ammonia 18 MCMOL/L (11-32) Sodium Level 133 MEQ/L (136-145) Potassium Level 4.6 MEQ/L (3.5-5.1) Chloride Level 101 MEQ/L (98-107) Carbon Dioxide Level 21.0 MEQ/L (21.0-32.0) Anion Gap 11 MEQ/L (5-15) Blood Urea Nitrogen 37 MG/DL (7-18) Creatinine 1.25 MG/DL (0.60-1.30) Estimat Glomerular Filtration 59 ML/MIN (>89) Rate Random Glucose 89 MG/DL (74-106) Calcium Level 7.5 MG/DL (8.5-10.1) Magnesium Level 2.2 MG/DL (1.5-2.5) Total Bilirubin 0.9 MG/DL (0.2-1.0) Aspartate Amino Transf 27 U/L (15-37) (AST/SGOT) Alanine Aminotransferase 15 U/L (12-78) (ALT/SGPT) Alkaline Phosphatase 82 U/L (45-117) Total Protein 6.3 GM/DL (6.4-8.2) Albumin 1.3 GM/DL (3.4-5.0) Lipase 109 U/L (73-393) Urine Color YELLOW (YELLW/STRAW) Urine Turbidity CLEAR (CLEAR) Urine pH 5.5 (5.0-8.5) Urine Specific [place] 1.024 (1.002-1.035) Urine Protein 30 mg/dL (NEG-TRACE) Urine Glucose (UA) NEG mg/dL (NEG) Urine Ketones TRACE mg/dL (NEG) Urine Occult Blood NEG (NEG) Urine Nitrite NEG (NEG) Urine Bilirubin NEG (NEG) Urine Urobilinogen 2.0 MG/DL (LESS THAN 2.0) Urine Leukocyte Esterase NEG (NEG) Urine RBC LESS THAN 1 /hpf (0-3) Urine WBC 2 /hpf (0-5) Urine Hyaline Casts 6 /lpf (RARE) Urine Granular Casts 2 /lpf (NONE) Urine Waxy Casts 2 /lpf (NONE) Urine Mucus FEW /lpf (OCC) Microscopic Urinalysis Comment CULT NOT INDICATED Test 04/21/17 04/21/17 04/21/17 04/22/17 05:51 12:00 17:00 07:07 White Blood Count 9.1 TH/MM3 (4.0-11.0) Red Blood Count 4.07 MIL/MM3 (4.50-5.90) Hemoglobin 11.3 GM/DL (13.0-17.0) Hematocrit 33.7 % (39.0-51.0) Mean Corpuscular Volume 82.8 FL (80.0-100.0) Mean Corpuscular Hemoglobin 27.9 PG (27.0-34.0) Mean Corpuscular Hemoglobin 33.7 % Concent (32.0-36.0) Red Cell Distribution Width 17.9 % (11.6-17.2) Platelet Count 154 TH/MM3 (150-450) Mean Platelet Volume 8.1 FL (7.0-11.0) Neutrophils (%) (Auto) 89.0 % (16.0-70.0) Lymphocytes (%) (Auto) 4.5 % (9.0-44.0) Monocytes (%) (Auto) 5.6 % (0.0-8.0) Eosinophils (%) (Auto) 0.6 % (0.0-4.0) Basophils (%) (Auto) 0.3 % (0.0-2.0) Neutrophils # (Auto) 8.1 TH/MM3 (1.8-7.7) Lymphocytes # (Auto) 0.4 TH/MM3 (1.0-4.8) Monocytes # (Auto) 0.5 TH/MM3 (0-0.9) Eosinophils # (Auto) 0.1 TH/MM3 (0-0.4) Basophils # (Auto) 0.0 TH/MM3 (0-0.2) CBC Comment DIFF FINAL Differential Comment Erythrocyte Sedimentation Rate 32 mm/hr (0-20) Sodium Level 135 MEQ/L 137 MEQ/L (136-145) (136-145) Potassium Level 3.8 MEQ/L 2.5 MEQ/L (3.5-5.1) (3.5-5.1) Chloride Level 102 MEQ/L 105 MEQ/L (98-107) (98-107) Carbon Dioxide Level 23.3 MEQ/L 20.6 MEQ/L (21.0-32.0) (21.0-32.0) Anion Gap 10 MEQ/L (5-15) 11 MEQ/L (5-15) Blood Urea Nitrogen 34 MG/DL (7-18) 24 MG/DL (7-18) Creatinine 1.24 MG/DL 1.15 MG/DL (0.60-1.30) (0.60-1.30) Estimat Glomerular Filtration 60 ML/MIN (>89) 65 ML/MIN (>89) Rate Random Glucose 78 MG/DL 102 MG/DL (74-106) (74-106) Calcium Level 7.5 MG/DL 7.5 MG/DL (8.5-10.1) (8.5-10.1) Peritoneal Fluid WBC 00151 /MM3 (0-10) Peritoneal Fluid RBC 411 /MM3 (0-0) Peritoneal Fluid Neutrophils 97 % Peritoneal Fluid Lymphocytes 3 % Peritoneal Fluid Total Protein 2.9 GM/DL Peritoneal Fluid Albumin 0.6 G/DL Peritoneal Fluid LDH 2994 U/L Peritoneal Fluid Glucose LESS THAN 1 MG/DL Nasal Screen MRSA (PCR) MRSA NOT DETECTED (NOT DETECT) Phosphorus Level 2.0 MG/DL (2.5-4.9) Tumor Marker Alpha Fetoprotein 1.7 NG/ML (0.5-8.0) . Result Diagram: 04/21/17 0551 04/22/17 0707 Microbiology Microbiology Date/Time Procedure Status Source Growth 04/20/17 13:30 Aerobic Blood Culture - Preliminary Resulted Blood Peripheral Staphylococcus Aureus 04/20/17 13:30 Anaerobic Blood Culture - Preliminary Resulted Staphylococcus Aureus 04/20/17 13:40 Aerobic Blood Culture - Preliminary Resulted Blood Peripheral NO GROWTH IN 2 DAYS 04/20/17 13:40 Anaerobic Blood Culture - Preliminary Resulted Staphylococcus Aureus 04/21/17 12:00 Gram Stain - Final Resulted Fluid Ascites Fluid 04/21/17 12:00 Body Fluid Culture Resulted Fluid Ascites Fluid Pending 04/21/17 16:19 Aerobic Blood Culture - Preliminary Resulted Blood Peripheral NO GROWTH IN 1 DAY 04/21/17 16:19 Anaerobic Blood Culture - Preliminary Resulted Blood Peripheral NO GROWTH IN 1 DAY 04/21/17 16:20 Aerobic Blood Culture - Preliminary Resulted Blood Peripheral NO GROWTH IN 1 DAY 04/21/17 16:20 Anaerobic Blood Culture - Preliminary Resulted Blood Peripheral NO GROWTH IN 1 DAY Imaging Last 72 hours Impressions Cyst Biopsy Asp-Paracentesis US 04/21/17 0000 Signed Impressions: Service Date/Time: April 11:07 - CONCLUSION: Uncomplicated ultrasound guided paracentesis. Please note that the fluid throughout the abdomen is extremely complex with septations. This can be seen when the fluid has become infected or is complicated by hemorrhage or malignancy. Mushtaq Alexis MD Chest X-Ray 04/20/17 0000 Signed Impressions: Service Date/Time: Thursday, April 20, 2017 21:00 - CONCLUSION: Bilateral lower lung consolidation and pleural effusion. Kwaku Haro MD Abdomen/Pelvis CT 04/20/17 0000 Signed Impressions: Service Date/Time: Thursday, April 20, 2017 13:56 - CONCLUSION: 1. Moderate volume free fluid in the abdomen and pelvis with possible associated peritoneal thickening. Thickening of the peritoneal lining can be seen with infection. 2. Large right and moderate size left pleural effusion with associated compressive atelectasis. 3. There is an umbilical hernia containing fluid and fat and fluid containing hernia superior and to the left of the umbilicus. This hernia also contains a portion of the transverse colon. 4. Nonacute findings include changes related to chronic liver disease including recanalized paraumbilical vein and bilateral gynecomastia. 5. Other nonacute findings include cholelithiasis and moderate atherosclerotic disease. Mushtaq Alexis MD . Procedures 04/21/17: Ultrasound guided paracentesis . Assessment and Plan Disease Oriented Problem List: (1) Diarrhea (2) HTN (hypertension) (3) Atrial fibrillation with RVR (4) Encephalopathy (5) Sepsis (6) Ascites (7) Bacterial peritonitis (8) Pneumonia (9) Pleural effusion (10) Alcohol abuse (11) Wernicke-Korsakoff syndrome (alcoholic) Symptom Scale: (1) Decrease in appetite (2) Pain (3) Dyspnea (4) Confusion Pertinent Non-Medical Issues Psychosocial: Patient is originally from [place], [place]. His parents are ; he has/had 3 siblings (Anay, Josefa, Tigre). He moved to [place] in 2012. Patient is . Patient has 1 son, Rickey malone, who is the healthcare proxy decision-make Spiritual: Raised alevism Legal: Per [facility] statutes, in the absence of written advanced directives healthcare proxy decision-making falls to the patient's son. Ethical issues impacting care: No known ethical issues impacting care. . Important Contacts Rickey Forrest III,son: [phone]. (Son DOES WISH to serve has health care proxy). Anay Mine, sister: ([place]) [phone] Josefa Driver, sister: [phone] Tigre Forrest, sister: [phone] . Prognosis Patient is a 57 year old male patient with a history of liver disease with ascites requiring paracentesis secondary to EtOH abuse. Currently admitted with sepsis/bacterial peritonitis/pneumonia with pleural effusions, encephalopathy and atrial fibrillation with RVR. Patient is malnourished with an albumin of 1.3 Patient is a poor historian and no family is present, therefore patient's functional and cognitive trajectory is unknown. Current prognosis is guarded versus poor. Additional information pending further conversations with patient and family. . . Code Status: Full Code Plan * FULL CODE * Patient is confused, oriented to self only. Patient pulling of oxygen and pulse oximeter. He is talking about having a constitution party but not wanting us to tell everyone stating we need to be careful so we let attending the constitution party. Patient has NO insight related to his medical conditions at this time.Decision-making: Per [place] statutes, in the absence of written advanced directives healthcare proxy decision-making falls to the patient's son Rickey malone. Risa Pena is NOT the patient's and should not be included in any medical decision making. * Goals: Aggressive goals * Attempted to contact patient's son to provide a clinical update, msg left on voice mail. Awaiting return phone call. * Symptom management-decreased appetite: Likely secondary to ascites and pain. Denies nausea, vomiting, diarrhea reported today. Appetite remains poor. Albumin 1.3. BMI 20.5. Dietary following. * Symptom managementdyspnea: Likely secondary to symptomatic ascites, worsened by fluid boluses ministered in the ED. is receiving Lasix twice a day, currently on hold due to hypotension. Patient denies dyspnea on exam, oxygen saturation in the low 90s on 2 L via nasal cannula. Chest x-ray on 04/20/17 showed bilateral lower lung consolidation and pleural effusion. * Palliative care will continue to follow this patient throughout his hospitalization to establish trust, assist with symptom management and clarification of medical treatment goals. . Attestation To help prompt me to consider important information that might be impacting today's encounter and assessment, information from prior notes written by myself or my colleagues may have been "brought forward" into today's note. My signature on this note, however, is an attestation that I personally performed the exam, history, and/or decision-making noted today, and, unless otherwise indicated, the interactions with patient, family, and staff as well as the review of records all occurred today. I also attest that the listed assessment and stated plan reflect my best clinical judgment today based on the combination of historical information, prior notes, and today's exam/ interactions. When time spent is documented, it refers only to time spent today by the signer, or if indicated, combined time spent today by collaborating physician/nurse practitioner. . Adina Gonzalez Apr 22, 2017 14:56
--- NOTE | 2017-04-22 15:28 | PQ ---
Physician Query Response Document PATIENT: JACQUIE MACHUCA : 1960 ADMIT DATE: 04/20/2017 4:52 PM DISCH DATE: RESPONDING PROVIDER #: [email or web address] QUERY TEXT: Sepsis Query SEPSIS PRESENT ON ADMISSION WAS DOCUMENTED IN THE MEDICAL RECORD Based on your medical judgement, can you further DEFINE THE CHARACTER : 1) SEPSIS: WITHOUT ORGAN DYSFUNCTION 2) SEVERE SEPSIS: (+) ORGAN DYSFUNCTION OR LACTIC ACID > 2 3) SEPTIC SHOCK: HYPOTENSION UNRESPONSIVE TO FLUID RESUSCITATION OR LACTIC ACID > OR = TO 4 4) OTHER, PLEASE SPECIFY PLEASE CALL [facility] [id number] FOR ASSISTANCE The patient's Clinical Indicators include: PER ID CONSULT: Sepsis present on admission. MSSA bacteremia likely source ascitic fluid. Patient reports having paracentesis recently. CT with se ptations noted. ON 04/20/17 WBC=15.2, LACTIC ACID=2.4, HR=72 TO 202, B/P= 160/104 TO 89/62, RR=20, TEMP=98.4 ORAL BLOOD CULTURES POSITIVE FOR MSSA Query created by: Renetta Cisse on 04/22/2017 11:25 AM RESPONSE TEXT: Severe sepsis. Electronically signed by: Mylene Charlton MD 04/22/2017 3:24 PM
--- NOTE | 2017-04-22 18:23 | ECHRPT ---
Indication: BACTEREMIA R/O ENDOCARDITIS CONCLUSIONS The left ventricular systolic function is normal with an estimated ejection fraction in the range of 55-60%. Trace mitral valve regurgitation. There is mild to moderate tricuspid valve regurgitation. There is a small pericardial effusion present. No hemodynamically significant echocardiographic features were observed (no pre-tamponade physiology). A left sided pleural effusion is present. No evidence of endocarditis noted BP: 96 / 78 HR: 142 Rhythm: MEASUREMENTS (Male / Female) Normal Values Technical Quality: 2D ECHO LV Diastolic Diameter PLAX 4.5 cm 4.2 - 5.9 / 3.9 - 5.3 cm LV Systolic Diameter PLAX 3.7 cm IVS Diastolic Thickness 0.8 cm 0.6 - 1.0 / 0.6 - 0.9 cm LVPW Diastolic Thickness 0.7 cm 0.6 - 1.0 / 0.6 - 0.9 cm LV Relative Wall Thickness 0.3 RV Internal Dim ED PLAX 1.8 cm LA Systolic Diameter LX 3.7 cm 3.0 - 4.0 / 2.7 - 3.8 cm DOPPLER Mitral E Point Velocity 92.8 cm/s TR Peak Velocity 324.0 cm/s TR Peak Gradient 42.0 mmHg FINDINGS LEFT VENTRICLE Normal left ventricular size. Wall thickness is normal. The left ventricular systolic function is normal with an estimated ejection fraction in the range of 55-60%. No regional wall motion abnormalities are present. RIGHT VENTRICLE Normal right ventricular size and systolic function. LEFT ATRIUM The left atrial size is upper limits of normal. RIGHT ATRIUM The right atrial size is mildly dilated. ATRIAL SEPTUM The interatrial septum not well visualized. AORTA The aortic root and proximal ascending aorta are normal in size on limited imaging. MITRAL VALVE Structurally normal mitral valve. No mitral valve stenosis. Trace mitral valve regurgitation. AORTIC VALVE Aortic valve sclerosis is present. No aortic valve regurgitation. No aortic valve stenosis. TRICUSPID VALVE Structurally normal tricuspid valve. No tricuspid valve stenosis. There is mild to moderate tricuspid valve regurgitation. PULMONARY VALVE The pulmonary valve is not well visualized. VESSELS The inferior vena cava is normal in size. PERICARDIUM There is a small pericardial effusion present. No hemodynamically significant echocardiographic features were observed (no pre-tamponade physiology). A left sided pleural effusion is present. Benton Banda DO (Electronically Signed) Final Date:22 April 2017 18:22
[2017-04-22] MEDS ORDERED: LORazepam 2 MG/ML VIAL IV ONE (22:30)
[2017-04-23] VITALS (14 sets, daily range): BP systolic 106–161; BP diastolic 58–89; PULSE 75–160; RESP 18–33; TEMP 97.1–97.8; O2SAT 91–97
[2017-04-23] MEDS: VANCOMYCIN 1,000 MG/NS 250 ML IV SCH ×4 (01:36→21:26)
[2017-04-23] MEDS: POTASSIUM CHLOR 20 MEQ PREMIX 100 ML IV PRN ×2 (01:37→04:00)
[2017-04-23] MEDS: ALBUMIN HUMAN 25% 25 GM/100 ML BAGP IV SCH ×2 (04:00→15:30)
[2017-04-23] MEDS: ceFAZolin 2 GM PREMIX 50 ML IV SCH ×3 (05:27→21:27)
[2017-04-23] MEDS: CHLORHEXIDINE GLUCONATE 2 % 1 PACK (2 CLOTHS)(taper/protocol) TOPICAL SCH (05:27)
[2017-04-23] MEDS: DILTIAZEM INJ 125 MG in SODIUM CHLORIDE 0.9% INJ 100 ML IV SCH ×2 (05:50→15:30)
[2017-04-23] MEDS: ENOXAPARIN SODIUM 40 MG/0.4 ML SYRINGE SQ SCH (08:23)
[2017-04-23] MEDS: METOPROLOL TARTRATE 25 MG TAB PO SCH ×2 (08:23→21:26)
[2017-04-23] MEDS: SODIUM CHLOR 0.9% 1000 ML INJ 1,000 ML IV SCH ×3 (08:23→21:27)
--- NOTE | 2017-04-23 08:41 | HHI.PR ---
Subjective Remarks f/u; a-fib still tachycardic despite being on amiodarone and cardizem drip. noted some swelling and erythema over the right forearm. still confused and on restraints. no fever. d/w the RN. Objective Vitals Vital Signs Date Time Temp Pulse Resp B/P Pulse Ox O2 Delivery O2 Flow Rate FiO2 04/23/17 06:00 120 04/23/17 04:00 97.1 122 29 106/71 94 04/23/17 04:00 122 04/23/17 02:00 114 04/23/17 00:00 97.8 121 20 113/88 92 04/23/17 00:00 121 04/22/17 23:30 93 Nasal Cannula 3.00 04/22/17 22:00 109 04/22/17 20:00 98.2 121 21 118/78 93 04/22/17 20:00 121 04/22/17 18:00 130 04/22/17 17:00 120 04/22/17 17:00 120 24 110/73 90 04/22/17 16:30 112 04/22/17 16:30 112 24 108/81 97 04/22/17 16:16 123 26 106/81 98 04/22/17 16:16 123 04/22/17 16:00 121 23 98 04/22/17 16:00 121 04/22/17 14:31 169 04/22/17 14:00 119 04/22/17 13:00 119 04/22/17 13:00 119 30 108/72 93 04/22/17 12:30 130 24 105/73 95 04/22/17 12:30 130 04/22/17 12:00 133 04/22/17 12:00 133 24 111/76 97 04/22/17 10:30 164 04/22/17 10:00 147 04/22/17 10:00 147 27 122/83 93 04/22/17 09:40 94 21 04/22/17 09:30 141 21 106/83 04/22/17 09:30 141 04/22/17 09:00 143 04/22/17 09:00 143 22 108/73 92 I/O 04/22/17 04/22/17 04/22/17 04/23/17 04/23/17 04/23/17 07:00 15:00 23:00 07:00 15:00 23:00 Intake Total 1037 ml 1737 ml 1712 ml 1882 ml Output Total 350 ml 400 ml 200 ml 150 ml Balance 687 ml 1337 ml 1512 ml 1732 ml Intake Oral 420 ml 240 ml 240 ml IV Total 1037 ml 1317 ml 1472 ml 1642 ml Output Urine Total 350 ml 400 ml 200 ml 150 ml # Bowel Movements 1 0 Result Diagram: 04/21/17 0551 04/22/17 2220 Imaging Last Impressions Cyst Biopsy Asp-Paracentesis US 04/21/17 0000 Signed Impressions: Service Date/Time: April 11:07 - CONCLUSION: Uncomplicated ultrasound guided paracentesis. Please note that the fluid throughout the abdomen is extremely complex with septations. This can be seen when the fluid has become infected or is complicated by hemorrhage or malignancy. Mushtaq Alexis MD Chest X-Ray 04/20/17 0000 Signed Impressions: Service Date/Time: Thursday, April 20, 2017 21:00 - CONCLUSION: Bilateral lower lung consolidation and pleural effusion. Kwaku Haro MD Abdomen/Pelvis CT 04/20/17 0000 Signed Impressions: Service Date/Time: Thursday, April 20, 2017 13:56 - CONCLUSION: 1. Moderate volume free fluid in the abdomen and pelvis with possible associated peritoneal thickening. Thickening of the peritoneal lining can be seen with infection. 2. Large right and moderate size left pleural effusion with associated compressive atelectasis. 3. There is an umbilical hernia containing fluid and fat and fluid containing hernia superior and to the left of the umbilicus. This hernia also contains a portion of the transverse colon. 4. Nonacute findings include changes related to chronic liver disease including recanalized paraumbilical vein and bilateral gynecomastia. 5. Other nonacute findings include cholelithiasis and moderate atherosclerotic disease. Mushtaq Alexis MD Objective Remarks GENERAL: in no apparent respiratory distress. CARDIOVASCULAR: tachycardic with irregular rhythm RESPIRATORY: Clear to auscultation. Breath sounds equal bilaterally. No wheezes , rales, or rhonchi. GASTROINTESTINAL: Abdomen soft, non-tender,distended. Normal, active bowel sounds MUSCULOSKELETAL: Extremities without clubbing, cyanosis, or edema. NEURO: awake but confused. Procedures paracentesis Medications and IVs Current Medications Sodium Chloride 1,000 ml @ 999 mls/hr BOLUS ONCE IV Last administered on 13:45; Start 04/20/17 at 13:45; Stop 04/20/17 at 14:45; Status DC Sodium Chloride (NS 1000 ml Inj) 1,000 ml @ 999 mls/hr BOLUS ONCE IV Last administered on 04/20/17 13:45; Start 04/20/17 at 13:45; Stop 04/20/17 at 14:45; Status DC Diltiazem HCl 20 mg 20 mg ONCE ONCE IV Last administered on 04/20/17 13:44; Start 04/20/17 at 13:45; Stop 04/20/17 at 13:46; Status DC Diltiazem HCl/ Sodium Chloride (Cardizem Inj/NS Inj) 125 ml @ 0 mls/hr TITRATE IV Last administered on 04/23/17 05:50; Start 04/20/17 at 13:45 Diltiazem HCl (Cardizem Inj) 25 mg STK-MED ONCE .ROUTE ; Start 04/20/17 at 13:38 ; Stop 04/20/17 at 13:39; Status DC Metoprolol Tartrate 5 mg 5 mg ONCE ONCE IV PUSH Last administered on 04/20/17 15:37; Start 04/20/17 at 15:30; Stop 04/20/17 at 15:31; Status DC Piperacillin Sod/ Tazobactam Sod 100 ml @ 200 mls/hr ONCE ONCE IV Last administered on 04/20/17 18:13; Start 04/20/17 at 16:45; Stop 04/20/17 at 17:14; Status DC Vancomycin HCl 1000 mg/Sodium Chloride 250 ml @ 250 mls/hr ONCE ONCE IV Last administered on 04/20/17 16:55; Start 04/20/17 at 16:45; Stop 04/20/17 at 17:44; Status DC Sodium Chloride (NS 1000 ml Inj) 1,000 ml @ 100 mls/hr Q10H IV Last administered on 04/20/17 18:12; Start 04/20/17 at 16:45; Stop 04/20/17 at 20:37; Status DC Ondansetron HCl 4 mg 4 mg Q8HR PRN IV PUSH NAUSEA; Start 04/20/17 at 16:45 Piperacillin Sod/ Tazobactam Sod (Zosyn 3.375 Gm Premix) 50 ml @ 100 mls/hr Q6H IV Last administered on 04/21/17 11:00; Start 04/20/17 at 23:00; Stop at 13:57; Status DC Furosemide (Lasix Inj) 40 mg ONCE ONCE IV PUSH Last administered on 04/20/17 22:07; Start 04/20/17 at 22:00; Stop 04/20/17 at 22:02; Status DC Furosemide (Lasix Inj) 40 mg BID@09,18 IV PUSH Last administered on 04/21/17 10 :35; Start 04/21/17 at 09:00; Status Hold Diltiazem HCl (Cardizem Inj) 20 mg ONCE ONCE IV Last administered on 04/21/17 00:44; Start 04/21/17 at 00:15; Stop 04/21/17 at 00:16; Status DC Enoxaparin Sodium (Lovenox Inj) 40 mg Q24H SQ Last administered on 04/23/17 08: 23; Start 04/21/17 at 09:00 Digoxin (Lanoxin Inj) 0.5 mg ONCE ONCE IV PUSH Last administered on 04/21/17 03:20; Start 04/21/17 at 03:15; Stop 04/21/17 at 03:16; Status DC Adenosine (Adenocard Inj) 6 mg ONCE ONCE IV PUSH ; Start 04/21/17 at 04:45; Stop 04/21/17 at 05:17; Status DC Adenosine (Adenocard Inj) 6 mg ONCE PRN IV PUSH if not responsive to first dos ; Start 04/21/17 at 04:45; Stop 04/21/17 at 05:17; Status DC Adenosine 12 mg 12 mg ONCE PRN IV PUSH if notResponsive to [id number]; Start at 04:45; Stop 04/21/17 at 05:17; Status DC Amiodarone HCl 150 mg/Dextrose 100 ml @ 600 mls/hr ONCE ONCE IV Last administered on 04/21/17 05:30; Start 04/21/17 at 05:30; Stop 04/21/17 at 05:39; Status DC Amiodarone HCl/ Dextrose (Cordarone Inj/ D5W Inj) 259 ml @ 0 mls/hr CONTINUOUS IV Last administered on 04/22/17 04:20; Start 04/21/17 at 05:30; Stop 04/22/17 at 06:27; Status DC Lidocaine HCl (Xylocaine-Mpf 1% Inj) 30 ml STK-MED ONCE .ROUTE Last administered on 04/21/17 11:07; Start 04/21/17 at 11:07; Stop 04/21/17 at 11:08; Status DC Atropine Sulfate (Atropine Inj) 1 mg STK-MED ONCE .ROUTE ; Start 04/21/17 at 11: 28; Stop 04/21/17 at 11:29; Status DC Epinephrine HCl 1 mg 1 mg STK-MED ONCE .ROUTE ; Start 04/21/17 at 11:28; Stop 04/21/17 at 11:29; Status DC Vancomycin HCl 1000 mg/Sodium Chloride 250 ml @ 250 mls/hr ONCE ONCE IV ; Start 04/21/17 at 12:45; Stop 04/21/17 at 13:44; Status UNV Pharmacy Profile Note 0 ml @ 0 mls/hr UNSCH OTHER ; Start 04/21/17 at 12:45 Vancomycin HCl/ Sodium Chloride (Vancomycin Inj/ NS 250 ml Inj) 250 ml @ 250 mls/hr Q18H IV Last administered on 04/23/17 01:36; Start 04/21/17 at 14:00 Miscellaneous Information SPECIFIC LAB TO BE ... ONCE ONCE .XX ; Start at 19:45; Stop 04/23/17 at 19:46 Sodium Chloride 1,000 ml @ 125 mls/hr Q8H IV Last administered on 04/23/17 08: 23; Start 04/21/17 at 13:45 Cefazolin Sodium/ Dextrose (Ancef 2 Gm Premix) 50 ml @ 100 mls/hr Q8H IV Last administered on 04/23/17 05:27; Start 04/21/17 at 14:00 Albumin Human 25 gm 25 gm Q12H IV Last administered on 04/23/17 04:00; Start at 16:00 Sodium Chloride 500 ml @ 0 mls/hr NOW ONCE IV ; Start 04/21/17 at 17:15; Stop at 17:16; Status DC Sodium Chloride (NS 1000 ml Inj) 1,000 ml @ 0 mls/hr NOW ONCE IV Last administered on 04/21/17 22:39; Start 04/21/17 at 20:00; Stop 04/21/17 at 20:01; Status DC Miscellaneous Information Patient in critical care unit? Ass... [id number] .XX Last administered on 04/22/17 02:45; Start 04/22/17 at 02:45 Chlorhexidine Gluconate (Chlorhexidine 2% Cloth) 3 pack DAILY@04 TOPICAL Last administered on 04/23/17 05:27; Start 04/22/17 at 04:00; Stop 04/26/17 at 04:01 Chlorhexidine Gluconate 3 pack 3 pack UNSCH PRN TOPICAL HYGIENIC CARE; Start at 02:45; Stop 04/27/17 at 02:38 Amiodarone HCl 450 mg/Dextrose 259 ml @ 0 mls/hr CONTINUOUS IV Last administered on 04/22/17 21:09; Start 04/22/17 at 06:30 Potassium Chloride 100 ml @ 50 mls/hr Q2H PRN IV For Potassium 2.8 - 3.2 mEq/ L Last administered on 04/22/17 08:49; Start 04/22/17 at 08:00 Potassium Chloride (KCl 20 Meq Premix Inj) 100 ml @ 50 mls/hr Q2H PRN IV For Potassium 2.8 - 3.2 mEq/L; Start 04/22/17 at 08:00 Potassium Bicarb/ Potassium Chloride 50 meq 50 meq UNSCH PRN PO For Potassium 3.3 - 3.5 mEq/L; Start 04/22/17 at 08:00 Potassium Chloride 100 ml @ 25 mls/hr UNSCH PRN IV For Potassium 3.3 - 3.5 mEq /L; Start 04/22/17 at 08:00 Potassium Chloride 100 ml @ 50 mls/hr Q2H PRN IV For Potassium 3.3 - 3.5 mEq/ L Last administered on 04/23/17 04:00; Start 04/22/17 at 08:00 Magnesium Sulfate/ Sodium Chloride (Magnesium Sulfate Inj/NS Inj) 100 ml @ 50 mls/hr UNSCH PRN IV For Magnesium 0.9 - 1.1 mg/dL; Start 04/22/17 at 08:00 Magnesium Oxide 800 mg 800 mg UNSCH PRN PO For Magnesium 1.2 - 1.6 mg/dL; Start 04/22/17 at 08:00 Magnesium Sulfate/ Sodium Chloride (Magnesium Sulfate Inj/NS Inj) 100 ml @ 50 mls/hr UNSCH PRN IV For Magnesium 1.2 - 1.6 mg/dL; Start 04/22/17 at 08:00 Potassium Phosphate 2000 mg 2,000 mg Q4H PRN PO For Phosphorus < 2.5 mg/dL; Start 04/22/17 at 08:00 Sodium Phosphate/ Sodium Chloride (Sodium Phosphate Inj/NS 250 ml Inj) 250 ml @ 42 mls/hr UNSCH PRN IV For Phosphorus < 2.5 mg/dL; Start 04/22/17 at 08:00 Potassium Phosphate 2000 mg 2,000 mg UNSCH PRN PO/TUBE SEE LABEL COMMENTS; Start 04/22/17 at 08:00 Potassium Phosphate/Sodium Chloride (Potassium Phosphate Inj/NS 250 ml Inj) 260 ml @ 42 mls/hr UNSCH PRN IV SEE LABEL COMMENTS Last administered on 04/22/17 11:25; Start 04/22/17 at 08:00 Metoprolol Tartrate (Lopressor) 25 mg BID PO Last administered on 04/23/17 08: 23; Start 04/22/17 at 10:30 Lorazepam (Ativan Inj) 1 mg NOW ONCE IV Last administered on 04/22/17 22:33; Start 04/22/17 at 22:30; Stop 04/22/17 at 22:31; Status DC A/P Assessment and Plan A/P Symptomatic Ascites Abdominal CT reviewed and shows Moderate volume free fluid in the abdomen and pelvis with possible associated peritoneal thickening. Thickening of the peritoneal lining can be seen with infection. Large right and moderate size left pleural effusion with associated compressive atelectasis. There is an umbilical hernia containing fluid and fat and fluid containing hernia superior and to the left of the umbilicus. -s/p paracentesis with removal of 650 ml of fluid. -hold lasix due to low-normal BP -GI evaluation appreciated. severe sepsis Pneumonia with bilateral Pleural effusion, and/ or spontaneous bacterial peritonitis patient with dyspnea, HR 120s, wbc 15.2, lactic acid 2.8 Chest x-ray reviewed and shows Bilateral lower lung consolidation and pleural effusion. -IV antibiotics per ID -initial Blood cultures with staph. aureus -repeated blood cultures from 04/21 negative so far. - echo with no evidence of endocarditis -ID following. Afib RVR, due to sepsis and possible alcohol withdrawal- still tachycardic- -on cardizem and amiodarone drip -added po metoprolol -started on CIWA protocol -cardiology following. erythema and swelling of the right forearm- check venous doppler- keep the right arm elevated. HTN, now BP ; low-normal -home Meds on hold for now as we are giving Cardizem and Lasix. Update med rec. hypokalemia; replaced- will monitor. 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 will continue to monitor in ICU closely.. d/w the RN. Mylene Charlton MD Apr 23, 2017 08:40
[2017-04-23] MEDS ORDERED: LORazepam 1 MG TAB PO PRN (08:45)
[2017-04-23] MEDS ORDERED: LORazepam 2 MG/ML VIAL IV PUSH PRN ×3 (08:45)
[2017-04-23] MEDS ORDERED: FLUMAZENIL 0.5 MG/5 ML VIAL IV PUSH PRN (08:45)
[2017-04-23] MEDS ORDERED: LORazepam 2 MG TAB PO PRN (08:45)
--- NOTE | 2017-04-23 12:04 | RADRPT ---
EXAM DATE/TIME: 04/23/2017 10:50 [facility] COMPARISON: No previous studies available for comparison. INDICATIONS : Right arm edema. MEDICAL HISTORY : Arthritis. Cirrhosis. Seizures. ETOH withdrawal. Afib. HTN. Sleep apnea. Abdominal pain. SURGICAL HISTORY : Tracheostomy. Gtube placed and removed. Paracentesis. ENCOUNTER: Initial ACUITY: 1 day PAIN SCORE: 0/10 LOCATION: Right arm. FINDINGS: Combination of occlusive and nonocclusive thrombus seen in the right basilic vein, proximal, mid and distal. Superficial thrombus seen in the mid right cephalic vein as well. Other venous tributaries of the right upper extremity are patent, including the right internal jugular vein. CONCLUSION: DVT in the right upper extremity seen in the right basilic vein. There is also superficial thrombus i n the right cephalic vein. Mushtaq Brown MD on April 23, 2017 at 12:00 Board Certified Radiologist. This report was verified electronically.
--- NOTE | 2017-04-23 13:31 | HHI.GIFU ---
Subjective Remarks Patient resting in bed, sleeping, hard to arouse, not contributing much information. Per nurse, he is tolerating diet okay, no abd pain, no melena or hematochezia. (Alina Fletcher) Objective Vitals I&O Vital Signs Date Time Temp Pulse Resp B/P Pulse Ox O2 Delivery O2 Flow Rate FiO2 04/23/17 12:08 95 Nasal Cannula 5.00 04/23/17 12:00 97.6 104 21 154/58 97 04/23/17 12:00 104 04/23/17 10:00 120 04/23/17 08:00 124 04/23/17 08:00 97.6 124 18 111/71 93 04/23/17 06:00 120 04/23/17 04:00 97.1 122 29 106/71 94 04/23/17 04:00 122 04/23/17 02:00 114 04/23/17 00:00 97.8 121 20 113/88 92 04/23/17 00:00 121 04/22/17 23:30 93 Nasal Cannula 3.00 04/22/17 22:00 109 04/22/17 20:00 98.2 121 21 118/78 93 04/22/17 20:00 121 04/22/17 18:00 130 04/22/17 17:00 120 04/22/17 17:00 120 24 110/73 90 04/22/17 16:30 112 04/22/17 16:30 112 24 108/81 97 04/22/17 16:16 123 26 106/81 98 04/22/17 16:16 123 04/22/17 16:00 121 23 98 04/22/17 16:00 121 04/22/17 14:31 169 04/22/17 14:00 119 I/O 04/22/17 04/22/17 04/22/17 04/23/17 04/23/17 04/23/17 07:00 15:00 23:00 07:00 15:00 23:00 Intake Total 1037 ml 1737 ml 1712 ml 1882 ml Output Total 350 ml 400 ml 200 ml 150 ml Balance 687 ml 1337 ml 1512 ml 1732 ml Intake Oral 420 ml 240 ml 240 ml IV Total 1037 ml 1317 ml 1472 ml 1642 ml Output Urine Total 350 ml 400 ml 200 ml 150 ml # Bowel Movements 1 0 Laboratory Laboratory Tests Test 04/22/17 22:20 Potassium Level 3.4 Date/Time Procedure Status Source Growth 04/21/17 16:20 Aerobic Blood Culture - Preliminary Resulted Blood Peripheral NO GROWTH IN 2 DAYS 04/21/17 16:20 Anaerobic Blood Culture - Preliminary Resulted Blood Peripheral NO GROWTH IN 2 DAYS 04/21/17 12:00 Gram Stain - Final Resulted Fluid Ascites Fluid 04/21/17 12:00 Body Fluid Culture - Preliminary Resulted Staphylococcus Aureus 04/20/17 13:30 Aerobic Blood Culture - Final Complete Blood Peripheral Staphylococcus Aureus 04/20/17 13:30 Anaerobic Blood Culture - Final Complete Staphylococcus Aureus Imaging Last Impressions Upper Extremity Ultrasound 04/23/17 0000 Signed Impressions: Service Date/Time: Sunday, April 23, 2017 10:50 - CONCLUSION: DVT in the right upper extremity seen in the right basilic vein. There is also superficial thrombus in the right cephalic vein. Mushtaq Brown MD Cyst Biopsy Asp-Paracentesis US 04/21/17 0000 Signed Impressions: Service Date/Time: April 11:07 - CONCLUSION: Uncomplicated ultrasound guided paracentesis. Please note that the fluid throughout the abdomen is extremely complex with septations. This can be seen when the fluid has become infected or is complicated by hemorrhage or malignancy. Mushtaq Alexis MD Chest X-Ray 04/20/17 0000 Signed Impressions: Service Date/Time: Thursday, April 20, 2017 21:00 - CONCLUSION: Bilateral lower lung consolidation and pleural effusion. Kwaku Haro MD Abdomen/Pelvis CT 04/20/17 0000 Signed Impressions: Service Date/Time: Thursday, April 20, 2017 13:56 - CONCLUSION: 1. Moderate volume free fluid in the abdomen and pelvis with possible associated peritoneal thickening. Thickening of the peritoneal lining can be seen with infection. 2. Large right and moderate size left pleural effusion with associated compressive atelectasis. 3. There is an umbilical hernia containing fluid and fat and fluid containing hernia superior and to the left of the umbilicus. This hernia also contains a portion of the transverse colon. 4. Nonacute findings include changes related to chronic liver disease including recanalized paraumbilical vein and bilateral gynecomastia. 5. Other nonacute findings include cholelithiasis and moderate atherosclerotic disease. Mushtaq Alexis MD Physical Exam HEENT: normocephalic; atraumatic; no jaundice. NECK: Neck is supple, no JVD, no lymphadenopathy. CHEST: Chest is clear to auscultation and percussion. CARDIAC: tachy ABDOMEN: Soft, distended, umbilical hernia, hernia LUQ, nontender; bowel sounds are present in all four quadrants. EXTREMITIES: No clubbing, cyanosis, or edema. 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 LFTs WNL currently. Pt admits liver problem but cannot explain further. s/p paracentesis. ammonia 18 SAAG 0.7, MELD 11, AFP 1.7 cytology pending , cx revealed staphylococcus aureus fluid analysis, wbc [id number], RBC 411, rest wnl. CT 04-20-17--> mod free fluid abd and pelvis with poss associated peritoneal thickening, pleural effusions, umbilical hernia, hernia superior and left of umbilicus containing portion of transverse colon, changes r/t chronic liver dz including recanalized paraumbilical vein, cholelithiasis - SBP- cx revealed staphylococcus aureus, abx Cefazolin, vanco - anemia - 12.4 on admission. today hh 11.3/33.7. No active bleeding. normocytic. hx UGIB in 2014 2/2 portal hypertensive gastropathy. - leukocytosis - 15.2 on admission now WNL, - Hypoalbuminemia- albumin BID - Hx of hep-C- PCR pending - Right DVT on US, per attending - PNA, AF RVR per primary, cardiology following, ID following PLAN - low salt diet - Await hep c quant and genotype - lactulose - Xifaxan - albumin - Await cytology - Diuretics, this was placed on hold due to low PB - further recommendations to follow This pt seen by myself and Dr Pizano and this note is written on her behalf ( Alina Fletcher) Physician Comments seen, examined agree with above may need repeat paracentesis next week sbp-on antibiotics (Laine Pizano MD) Alina Fletcher Apr 23, 2017 13:31 Laine Pizano MD Apr 23, 2017 16:03
[2017-04-23] MEDS: LORazepam 2 MG/ML VIAL IV PUSH PRN (13:40)
[2017-04-23 18:38] LABS: AUTOMATED NEUTROPHIL # 9.8 TH/MM3 (1.8-7.7); BASOPHIL % 0.3 % (0.0-2.0); EOSINOPHIL % 0.3 % (0.0-4.0); HEMATOCRIT 30.6 % (39.0-51.0); HEMO FLAGS DIFF FINAL; LYMPH % 4.2 % (9.0-44.0); LYMPHOCYTE # 0.5 TH/MM3 (1.0-4.8); MEAN CELL VOLUME 84.5 FL (80.0-100.0); MEAN CORPUSCULAR HEMOGLOBIN 27.5 PG (27.0-34.0); MEAN CORPUSCULAR HGB CONC 32.5 % (32.0-36.0); MONO % 6.4 % (0.0-8.0); NEUT % 88.8 % (16.0-70.0); PLATELET COUNT 162 TH/MM3 (150-450); RED BLOOD COUNT 3.62 MIL/MM3 (4.50-5.90); RED CELL DISTRIBUTION WIDTH 18.6 % (11.6-17.2)
[2017-04-23 19:30] LABS: BICARBONATE 20.3 MEQ/L (21.0-32.0); POTASSIUM 3.5 MEQ/L (3.5-5.1)
[2017-04-23 19:32] LABS: INTERNATIONAL NORMALIZED RATIO 1.3 RATIO; PROTHROMBIN TIME - PATIENT 15.1 SEC (9.8-11.6)
[2017-04-23] MEDS ORDERED: PHARMACY ORDERED LAB ONE (19:45)
[2017-04-23] MEDS: RIFAXIMIN 550 MG TAB PO SCH (21:26)
[2017-04-23] MEDS: ENOXAPARIN SODIUM 80 MG/0.8 ML SYRINGE SQ SCH (21:26)
[2017-04-23] MEDS ORDERED: ACETAMINOPHEN 650 MG/20.3 ML UDC OG-TUBE PRN (21:30)
[2017-04-23 21:31] LABS: ALT (GPT) 9 U/L (12-78); ANION GAP 11 MEQ/L (5-15); AST (GOT) 22 U/L (15-37); BICARBONATE 17.4 MEQ/L (21.0-32.0); CHLORIDE 110 MEQ/L (98-107); GLOMERULAR FILTRATION RATE 85 ML/MIN (>89); MAGNESIUM 1.8 MG/DL (1.5-2.5); POTASSIUM 3.6 MEQ/L (3.5-5.1); SODIUM (NA) 138 MEQ/L (136-145)
[2017-04-23 21:43] LABS: ALKALINE PHOSPHATASE 75 U/L (45-117); BLOOD UREA NITROGEN 21 MG/DL (7-18); TOTAL BILIRUBIN ADULT 0.8 MG/DL (0.2-1.0); VANCOMYCIN TROUGH 13.7 MCG/ML (5.0-10.0)
[2017-04-24] VITALS (14 sets, daily range): BP systolic 106–166; BP diastolic 44–66; PULSE 102–129; RESP 19–31; TEMP 98–98.7; O2SAT 80–96
[2017-04-24] MEDS: AMIODARONE IV SCH ×4 (00:38→18:44)
[2017-04-24] MEDS: WATER IV SCH ×4 (00:38→18:44)
[2017-04-24] MEDS: DILTIAZEM INJ 125 MG in SODIUM CHLORIDE 0.9% INJ 100 ML IV SCH ×3 (00:38→20:06)
[2017-04-24] MEDS: DEXTROSE 5% IV SCH ×4 (00:38→18:44)
[2017-04-24 03:52] LABS: HCV RNA PCR IU/ML 22500 IU/mL (()); HCV RNA PCR LOGIU/ML 4.35 (())
[2017-04-24] MEDS: CHLORHEXIDINE GLUCONATE 2 % 1 PACK (2 CLOTHS)(taper/protocol) TOPICAL SCH (04:00)
[2017-04-24] MEDS: ALBUMIN HUMAN 25% 25 GM/100 ML BAGP IV SCH ×2 (05:26→16:40)
[2017-04-24] MEDS: ceFAZolin 2 GM PREMIX 50 ML IV SCH ×3 (05:26→20:54)
[2017-04-24] MEDS: SODIUM CHLOR 0.9% 1000 ML INJ 1,000 ML IV SCH ×3 (05:27→20:04)
[2017-04-24] MEDS ORDERED: FUROSEMIDE 20 MG/2 ML VIAL IV PUSH ONE ×2 (08:00→16:00)
--- NOTE | 2017-04-24 08:06 | HHI.PR ---
Subjective Remarks f/u; a-fib/cirrhosis ill looking. with mild sob. denies chest pain. still tachycardic and on cardizem and amiodarone drip- afebrile. low urine output over night and sounds congested. d/w the RN. Objective Vitals Vital Signs Date Time Temp Pulse Resp B/P Pulse Ox O2 Delivery O2 Flow Rate FiO2 04/24/17 06:00 102 04/24/17 04:00 98.7 105 19 106/44 95 04/24/17 04:00 105 04/24/17 02:00 102 04/24/17 00:00 98.2 105 20 166/66 96 04/24/17 00:00 105 04/23/17 22:00 129 04/23/17 21:05 95 Nasal Cannula 4.00 04/23/17 20:00 97.7 160 33 161/89 94 04/23/17 20:00 160 04/23/17 18:00 75 04/23/17 16:00 97.8 115 22 143/58 91 04/23/17 16:00 115 04/23/17 14:00 104 04/23/17 12:08 95 Nasal Cannula 5.00 04/23/17 12:00 97.6 104 21 154/58 97 04/23/17 12:00 104 04/23/17 10:00 120 I/O 04/23/17 04/23/17 04/23/17 04/24/17 04/24/17 04/24/17 07:00 15:00 23:00 07:00 15:00 23:00 Intake Total 1882 ml 1424 ml 982 ml 845 ml Output Total 150 ml 150 ml 125 ml 75 ml Balance 1732 ml 1274 ml 857 ml 770 ml Intake Oral 240 ml 150 ml 150 ml IV Total 1642 ml 1274 ml 832 ml 845 ml Output Urine Total 150 ml 150 ml 125 ml 75 ml # Bowel Movements 0 Result Diagram: 04/23/17 1220 04/23/172010 Imaging Last Impressions Upper Extremity Ultrasound 04/23/17 0000 Signed Impressions: Service Date/Time: Sunday, April 23, 2017 10:50 - CONCLUSION: DVT in the right upper extremity seen in the right basilic vein. There is also superficial thrombus in the right cephalic vein. Mushtaq Brown MD Cyst Biopsy Asp-Paracentesis US 04/21/17 0000 Signed Impressions: Service Date/Time: April 11:07 - CONCLUSION: Uncomplicated ultrasound guided paracentesis. Please note that the fluid throughout the abdomen is extremely complex with septations. This can be seen when the fluid has become infected or is complicated by hemorrhage or malignancy. Mushtaq Alexis MD Chest X-Ray 04/20/17 0000 Signed Impressions: Service Date/Time: Thursday, April 20, 2017 21:00 - CONCLUSION: Bilateral lower lung consolidation and pleural effusion. Kwaku Haro MD Abdomen/Pelvis CT 04/20/17 0000 Signed Impressions: Service Date/Time: Thursday, April 20, 2017 13:56 - CONCLUSION: 1. Moderate volume free fluid in the abdomen and pelvis with possible associated peritoneal thickening. Thickening of the peritoneal lining can be seen with infection. 2. Large right and moderate size left pleural effusion with associated compressive atelectasis. 3. There is an umbilical hernia containing fluid and fat and fluid containing hernia superior and to the left of the umbilicus. This hernia also contains a portion of the transverse colon. 4. Nonacute findings include changes related to chronic liver disease including recanalized paraumbilical vein and bilateral gynecomastia. 5. Other nonacute findings include cholelithiasis and moderate atherosclerotic disease. Mushtaq Alexis MD Objective Remarks GENERAL: ill looking with some sob CARDIOVASCULAR: tachycardic with irregular rhythm RESPIRATORY: bilateral wheezing. GASTROINTESTINAL: Abdomen soft, non-tender,distended. Normal, active bowel sounds MUSCULOSKELETAL: right forearm with some swelling and erythema NEURO: awake but confused. Procedures paracentesis Medications and IVs Current Medications Sodium Chloride 1,000 ml @ 999 mls/hr BOLUS ONCE IV Last administered on 13:45; Start 04/20/17 at 13:45; Stop 04/20/17 at 14:45; Status DC Sodium Chloride (NS 1000 ml Inj) 1,000 ml @ 999 mls/hr BOLUS ONCE IV Last administered on 04/20/17 13:45; Start 04/20/17 at 13:45; Stop 04/20/17 at 14:45; Status DC Diltiazem HCl 20 mg 20 mg ONCE ONCE IV Last administered on 04/20/17 13:44; Start 04/20/17 at 13:45; Stop 04/20/17 at 13:46; Status DC Diltiazem HCl/ Sodium Chloride (Cardizem Inj/NS Inj) 125 ml @ 0 mls/hr TITRATE IV Last administered on 04/24/17 00:38; Start 04/20/17 at 13:45 Diltiazem HCl (Cardizem Inj) 25 mg STK-MED ONCE .ROUTE ; Start 04/20/17 at 13:38 ; Stop 04/20/17 at 13:39; Status DC Metoprolol Tartrate 5 mg 5 mg ONCE ONCE IV PUSH Last administered on 04/20/17 15:37; Start 04/20/17 at 15:30; Stop 04/20/17 at 15:31; Status DC Piperacillin Sod/ Tazobactam Sod 100 ml @ 200 mls/hr ONCE ONCE IV Last administered on 04/20/17 18:13; Start 04/20/17 at 16:45; Stop 04/20/17 at 17:14; Status DC Vancomycin HCl 1000 mg/Sodium Chloride 250 ml @ 250 mls/hr ONCE ONCE IV Last administered on 04/20/17 16:55; Start 04/20/17 at 16:45; Stop 04/20/17 at 17:44; Status DC Sodium Chloride (NS 1000 ml Inj) 1,000 ml @ 100 mls/hr Q10H IV Last administered on 04/20/17 18:12; Start 04/20/17 at 16:45; Stop 04/20/17 at 20:37; Status DC Ondansetron HCl 4 mg 4 mg Q8HR PRN IV PUSH NAUSEA; Start 04/20/17 at 16:45 Piperacillin Sod/ Tazobactam Sod (Zosyn 3.375 Gm Premix) 50 ml @ 100 mls/hr Q6H IV Last administered on 04/21/17 11:00; Start 04/20/17 at 23:00; Stop at 13:57; Status DC Furosemide (Lasix Inj) 40 mg ONCE ONCE IV PUSH Last administered on 04/20/17 22:07; Start 04/20/17 at 22:00; Stop 04/20/17 at 22:02; Status DC Furosemide (Lasix Inj) 40 mg BID@09,18 IV PUSH Last administered on 04/21/17 10 :35; Start 04/21/17 at 09:00; Status Hold Diltiazem HCl (Cardizem Inj) 20 mg ONCE ONCE IV Last administered on 04/21/17 00:44; Start 04/21/17 at 00:15; Stop 04/21/17 at 00:16; Status DC Enoxaparin Sodium (Lovenox Inj) 40 mg Q24H SQ Last administered on 04/23/17 08: 23; Start 04/21/17 at 09:00; Stop 04/23/17 at 13:25; Status DC Digoxin (Lanoxin Inj) 0.5 mg ONCE ONCE IV PUSH Last administered on 04/21/17 03:20; Start 04/21/17 at 03:15; Stop 04/21/17 at 03:16; Status DC Adenosine (Adenocard Inj) 6 mg ONCE ONCE IV PUSH ; Start 04/21/17 at 04:45; Stop 04/21/17 at 05:17; Status DC Adenosine (Adenocard Inj) 6 mg ONCE PRN IV PUSH if not responsive to first dos ; Start 04/21/17 at 04:45; Stop 04/21/17 at 05:17; Status DC Adenosine 12 mg 12 mg ONCE PRN IV PUSH if notResponsive to [id number]; Start at 04:45; Stop 04/21/17 at 05:17; Status DC Amiodarone HCl 150 mg/Dextrose 100 ml @ 600 mls/hr ONCE ONCE IV Last administered on 04/21/17 05:30; Start 04/21/17 at 05:30; Stop 04/21/17 at 05:39; Status DC Amiodarone HCl/ Dextrose (Cordarone Inj/ D5W Inj) 259 ml @ 0 mls/hr CONTINUOUS IV Last administered on 04/22/17 04:20; Start 04/21/17 at 05:30; Stop 04/22/17 at 06:27; Status DC Lidocaine HCl (Xylocaine-Mpf 1% Inj) 30 ml STK-MED ONCE .ROUTE Last administered on 04/21/17 11:07; Start 04/21/17 at 11:07; Stop 04/21/17 at 11:08; Status DC Atropine Sulfate (Atropine Inj) 1 mg STK-MED ONCE .ROUTE ; Start 04/21/17 at 11: 28; Stop 04/21/17 at 11:29; Status DC Epinephrine HCl 1 mg 1 mg STK-MED ONCE .ROUTE ; Start 04/21/17 at 11:28; Stop 04/21/17 at 11:29; Status DC Vancomycin HCl 1000 mg/Sodium Chloride 250 ml @ 250 mls/hr ONCE ONCE IV ; Start 04/21/17 at 12:45; Stop 04/21/17 at 13:44; Status UNV Pharmacy Profile Note 0 ml @ 0 mls/hr UNSCH OTHER ; Start 04/21/17 at 12:45 Vancomycin HCl/ Sodium Chloride (Vancomycin Inj/ NS 250 ml Inj) 250 ml @ 250 mls/hr Q18H IV Last administered on 04/23/17 21:26; Start 04/21/17 at 14:00; Stop 04/23/17 at 22:07; Status DC Miscellaneous Information SPECIFIC LAB TO BE STACY... ONCE ONCE .XX Last administered on 04/23/17 19:45; Start 04/23/17 at 19:45; Stop 04/23/17 at 19:46; Status DC Sodium Chloride 1,000 ml @ 125 mls/hr Q8H IV Last administered on 04/24/17 05: 27; Start 04/21/17 at 13:45 Cefazolin Sodium/ Dextrose (Ancef 2 Gm Premix) 50 ml @ 100 mls/hr Q8H IV Last administered on 04/24/17 05:26; Start 04/21/17 at 14:00 Albumin Human 25 gm 25 gm Q12H IV Last administered on 04/24/17 05:26; Start at 16:00 Sodium Chloride 500 ml @ 0 mls/hr NOW ONCE IV ; Start 04/21/17 at 17:15; Stop at 17:16; Status DC Sodium Chloride (NS 1000 ml Inj) 1,000 ml @ 0 mls/hr NOW ONCE IV Last administered on 04/21/17 22:39; Start 04/21/17 at 20:00; Stop 04/21/17 at 20:01; Status DC Miscellaneous Information Patient in critical care unit? Ass... Q361D .XX Last administered on 04/22/17 02:45; Start 04/22/17 at 02:45 Chlorhexidine Gluconate (Chlorhexidine 2% Cloth) 3 pack DAILY@04 TOPICAL Last administered on 04/24/17 04:00; Start 04/22/17 at 04:00; Stop 04/26/17 at 04:01 Chlorhexidine Gluconate 3 pack 3 pack UNSCH PRN TOPICAL HYGIENIC CARE; Start at 02:45; Stop 04/27/17 at 02:38 Amiodarone HCl 450 mg/Dextrose 259 ml @ 0 mls/hr CONTINUOUS IV Last administered on 04/24/17 00:38; Start 04/22/17 at 06:30 Potassium Chloride 100 ml @ 50 mls/hr Q2H PRN IV For Potassium 2.8 - 3.2 mEq/ L Last administered on 04/22/17 08:49; Start 04/22/17 at 08:00 Potassium Chloride (KCl 20 Meq Premix Inj) 100 ml @ 50 mls/hr Q2H PRN IV For Potassium 2.8 - 3.2 mEq/L; Start 04/22/17 at 08:00 Potassium Bicarb/ Potassium Chloride 50 meq 50 meq UNSCH PRN PO For Potassium 3.3 - 3.5 mEq/L; Start 04/22/17 at 08:00 Potassium Chloride 100 ml @ 25 mls/hr UNSCH PRN IV For Potassium 3.3 - 3.5 mEq /L; Start 04/22/17 at 08:00 Potassium Chloride 100 ml @ 50 mls/hr Q2H PRN IV For Potassium 3.3 - 3.5 mEq/ L Last administered on 04/23/17 04:00; Start 04/22/17 at 08:00 Magnesium Sulfate/ Sodium Chloride (Magnesium Sulfate Inj/NS Inj) 100 ml @ 50 mls/hr UNSCH PRN IV For Magnesium 0.9 - 1.1 mg/dL; Start 04/22/17 at 08:00 Magnesium Oxide 800 mg 800 mg UNSCH PRN PO For Magnesium 1.2 - 1.6 mg/dL; Start 04/22/17 at 08:00 Magnesium Sulfate/ Sodium Chloride (Magnesium Sulfate Inj/NS Inj) 100 ml @ 50 mls/hr UNSCH PRN IV For Magnesium 1.2 - 1.6 mg/dL; Start 04/22/17 at 08:00 Potassium Phosphate 2000 mg 2,000 mg Q4H PRN PO For Phosphorus < 2.5 mg/dL; Start 04/22/17 at 08:00 Sodium Phosphate/ Sodium Chloride (Sodium Phosphate Inj/NS 250 ml Inj) 250 ml @ 42 mls/hr UNSCH PRN IV For Phosphorus < 2.5 mg/dL; Start 04/22/17 at 08:00 Potassium Phosphate 2000 mg 2,000 mg UNSCH PRN PO/TUBE SEE LABEL COMMENTS; Start 04/22/17 at 08:00 Potassium Phosphate/Sodium Chloride (Potassium Phosphate Inj/NS 250 ml Inj) 260 ml @ 42 mls/hr UNSCH PRN IV SEE LABEL COMMENTS Last administered on 04/22/17 11:25; Start 04/22/17 at 08:00 Metoprolol Tartrate (Lopressor) 25 mg BID PO Last administered on 04/23/17 21: 26; Start 04/22/17 at 10:30 Lorazepam (Ativan Inj) 1 mg NOW ONCE IV Last administered on 04/22/17 22:33; Start 04/22/17 at 22:30; Stop 04/22/17 at 22:31; Status DC Flumazenil (Romazicon Inj) 0.2 mg Q1M PRN IV PUSH SEE LABEL COMMENTS; Start 04/23/17 at 08:45 Lorazepam (Ativan) 1 mg Q4H PRN PO CIWA 8 - 10; Start 04/23/17 at 08:45 Lorazepam (Ativan Inj) 1 mg Q4H PRN IV PUSH CIWA 8 - 10 Last administered on 13:40; Start 04/23/17 at 08:45 Lorazepam (Ativan) 2 mg Q2H PRN PO CIWA 11-14; Start 04/23/17 at 08:45 Lorazepam (Ativan Inj) 2 mg Q2H PRN IV PUSH CIWA 11-14 Last administered on 04/23 11:24; Start 04/23/17 at 08:45 Lorazepam (Ativan Inj) 2 mg Q1H PRN IV PUSH CIWA 15-20; Start 04/23/17 at 08:45 Lorazepam (Ativan Inj) 2 mg Q15M PRN IV PUSH CIWA > 20; Start 04/23/17 at 08:45 Rifaximin (Xifaxan) 550 mg BID PO Last administered on 04/23/17 21:26; Start at 21:00 Lactulose (Lactulose Liq) 30 ml DAILY PO ; Start 04/24/17 at 09:00 Enoxaparin Sodium (Lovenox Inj) 70 mg Q12HR SQ Last administered on 04/23/17 21 :26; Start 04/23/17 at 21:00 Acetaminophen 650 mg 650 mg Q4H PRN OG-TUBE FEVER; Start 04/23/17 at 21:30; Status Cancel Vancomycin HCl/ Sodium Chloride (Vancomycin Inj/ NS 250 ml Inj) 262 ml @ 250 mls/hr Q18H IV ; Start 04/24/17 at 14:00 Miscellaneous Information SPECIFIC LAB TO BE DRAWN:VANCOMYCIN TROUGH DATE TO... ONCE ONCE .XX ; Start 04/26/17 at 01:45; Stop 04/26/17 at 01:46 A/P Assessment and Plan A/P Ascites/ SBP Hepatitis C Abdominal CT reviewed and shows Moderate volume free fluid in the abdomen and pelvis with possible associated peritoneal thickening. Thickening of the peritoneal lining can be seen with infection. Large right and moderate size left pleural effusion with associated compressive atelectasis. There is an umbilical hernia containing fluid and fat and fluid containing hernia superior and to the left of the umbilicus. -s/p paracentesis with removal of 650 ml of fluid. -fluid culture with staph aureus -continue IV antibiotics per ID -on Rifaximin,lactulose and albumin - will resume lasix with close monitoring or renal function/electrolytes and BP -GI and ID following. severe sepsis Pneumonia with bilateral Pleural effusion, and/ or spontaneous bacterial peritonitis patient with dyspnea, HR 120s, wbc 15.2, lactic acid 2.8 Chest x-ray reviewed and shows Bilateral lower lung consolidation and pleural effusion. -IV antibiotics per ID -initial Blood cultures with staph. aureus -repeated blood cultures from 04/21 negative so far. - echo with no evidence of endocarditis -ID following. Afib RVR, due to sepsis and possible alcohol withdrawal- still tachycardic - however the HR overall is improving. -on cardizem and amiodarone drip -continue po metoprolol -started on CIWA protocol -cardiology following. DVT of the right upper extremity; started on subq Lovenox HTN, now BP ; low-normal -home Meds on hold for now as we are giving Cardizem and Lasix. -continue to monitor closely hypokalemia; replaced- will monitor. 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 patient is ill-looking. continue to monitor closely-in ICU. palliative care following. d/w the RN. Mylene Charlton MD Apr 24, 2017 08:06 Mylene Charlton MD Apr 24, 2017 08:06
[2017-04-24] MEDS ORDERED: RESP: ALBUTEROL 1.25 MG/3 ML NEB (PRN) NEB (08:15)
--- NOTE | 2017-04-24 08:36 | RADRPT ---
EXAM DATE/TIME: 04/24/2017 08:08 [facility] COMPARISON: CHEST SINGLE AP, April 20, 2017, 21:00. INDICATIONS : Short of breath. MEDICAL HISTORY : Arthritis. Cirrhosis. Seizures. ETOH withdrawal. Afib. HTN. Sleep apnea. SURGICAL HISTORY : Tracheostomy. Paracentesis. ENCOUNTER: Subsequent ACUITY: 4 - 6 days PAIN SCORE: 0/10 LOCATION: Bilateral chest FINDINGS: Portable AP view of the chest demonstrates a normal-sized cardiac silhouette. There is a large right pleural-based opacity, increased in size from the prior study with associated airspace opacity in the right lung. There is a [id number] size left basilar pleural-parenchymal opacity with airspace opacity in the peripheral left midlung zone. No pneumothorax is visualized. The bones and soft tissu es demonstrate no acute finding. CONCLUSION: 1. Large right pleural effusion with associated volume loss and/or airspace consolidation in the righ t lung. The pleural effusion has increased in size from 4 days ago. 2. Small to moderate size left basilar opacity representing pleural effusion with associated volume l oss and/or consolidation. There is new atelectasis or consolidation in the left midlung zone. Mushtaq Alexis MD on April 24, 2017 at 8:33 Board Certified Radiologist. This report was verified electronically.
[2017-04-24] MEDS: LACTULOSE SYRUP 20 GM/30 ML CUP PO SCH (08:56)
[2017-04-24] MEDS: METOPROLOL TARTRATE 25 MG TAB PO SCH ×2 (08:56→20:54)
[2017-04-24] MEDS: ENOXAPARIN SODIUM 80 MG/0.8 ML SYRINGE SQ SCH ×2 (08:56→20:55)
[2017-04-24] MEDS: RIFAXIMIN 550 MG TAB PO SCH ×2 (08:56→20:54)
[2017-04-24 10:14] LABS: BICARBONATE 20.5 MEQ/L (21.0-32.0); POTASSIUM 3.5 MEQ/L (3.5-5.1)
[2017-04-24] MEDS ORDERED: POTASSIUM CHLORIDE 10 MEQ CONTROLLED RELEASE TAB PO ONE (12:00)
[2017-04-24] MEDS: VANCOMYCIN INJ 1,200 MG in SODIUM CHLOR 0.9% 250 ML INJ 250 ML IV SCH (14:40)
[2017-04-24] MEDS: LORazepam 2 MG/ML VIAL IV PUSH PRN ×2 (20:04→21:44)
[2017-04-25] VITALS (19 sets, daily range): BP systolic 116–161; BP diastolic 47–109; PULSE 61–144; RESP 18–44; TEMP 97.4–97.8; O2SAT 91–99
[2017-04-25] MEDS: LORazepam 2 MG/ML VIAL IV PUSH PRN (00:16)
[2017-04-25] MEDS ORDERED: SODIUM BICARBONATE 8.4% INJ 50 MEQ/50 ML SYR IV PUSH ONE ×2 (00:45→02:45)
[2017-04-25 00:46] LABS: BLOOD GAS BASE EXCESS -6.1 mmol/L (-2-2); BLOOD GAS CARBOXYHEMOGLOBIN 1.6 % (0-4); BLOOD GAS HCO3 19 mmol/L (22-26); BLOOD GAS O2 HGB SATURATION 87 % (90-100); BLOOD GAS PCO2 42 mmHg (38-42); BLOOD GAS PO2 66 mmHg (61-120); BLOOD GAS TOTAL HGB 9.8 G/DL (12.0-16.0); CRITICAL VALUE YES; DRAW SITE RT RADIAL; FIO2 100 %; LITER FLOW 15 L/M; TEMP CORR TO 98.6
[2017-04-25 00:47] LABS: NUMBER OF ARTERIAL PUNCTURES 1; STAT NO
[2017-04-25] MEDS ORDERED: LORazepam 2 MG/ML VIAL IV PUSH ONE (01:30)
[2017-04-25] MEDS ORDERED: MORPHINE SULFATE 4 MG/ML INJ IV PUSH ONE (01:30)
[2017-04-25] MEDS ORDERED: ALBUMIN HUMAN 25% 25 GM/100 ML BAGP IV ONE (01:45)
--- NOTE | 2017-04-25 02:12 | PD.PROCEDR ---
Procedure Note Procedure Procedure Notes: US guided right thoracentesis Indication: Large right pleural effusion A time-out was completed verifying correct patient, procedure, site, positioning , and special equipment if applicable. The patient's right side was prepped and draped in a sterile manner after the appropriate infiltration level was confirmed by ultrasound. 1% lidocaine was used anesthetize the surrounding skin. A 10-blade scalpel used to make the incision. The thoracentesis Angio cath was then introduced without difficulty and needle was removed. Catheter was connected to Vacutainer bottle and 2000 ml (2L) of clear yellow fluid was removed. A post-procedure chest x-ray was ordered and the fluid will be sent for several studies. 25 GM IV Albumin given during procedure Estimated Blood Loss: <1 ml The patient tolerated the procedure well and there were no immediate complications. Seven Landin MD Apr 25, 2017 02:12
[2017-04-25] MEDS ORDERED: BUMETANIDE INJ 1 MG/4 ML VIAL ONE (02:45)
[2017-04-25] MEDS ORDERED: RESP: ALBUTEROL 2.5 MG/IPRATROPIUM 0.5 MG NEB (SCH) NEB ONE (02:45)
[2017-04-25] MEDS: ALBUMIN HUMAN 25% 25 GM/100 ML BAGP IV SCH ×2 (03:11→15:44)
[2017-04-25] MEDS: CHLORHEXIDINE GLUCONATE 2 % 1 PACK (2 CLOTHS)(taper/protocol) TOPICAL SCH (04:00)
[2017-04-25] MEDS: RESP: ALBUTEROL 2.5 MG/IPRATROPIUM 0.5 MG NEB (SCH) NEB ×4 (04:30→22:00)
--- NOTE | 2017-04-25 04:43 | RADRPT ---
EXAM DATE/TIME: 04/25/2017 02:29 [facility] COMPARISON: CHEST SINGLE AP, April 24, 2017, 8:08. INDICATIONS : Short of breath. MEDICAL HISTORY : Arthritis. Cirrhosis. Seizures. ETOH withdrawal. Afib. HTN. Sleep apnea. SURGICAL HISTORY : Tracheostomy. Paracentesis ENCOUNTER: Subsequent ACUITY: 4 - 6 days PAIN SCORE: 0/10 LOCATION: Bilateral chest FINDINGS: There is improved aeration of the right lung and worsening consolidation on the left. Bilateral effus ions are noted, decreased on the right and increased on the left. Cardiomegaly. CONCLUSION: Worsening appearance of the left lung with improved aeration on the right. Watson Bermeo MD on April 25, 2017 at 4:41 Board Certified Radiologist. This report was verified electronically.
[2017-04-25 05:10] LABS: TOTAL PROTEIN,PLEURAL FLUID 2.7 GM/DL
[2017-04-25] MEDS: SODIUM CHLOR 0.9% 1000 ML INJ 1,000 ML IV SCH ×3 (05:45→21:45)
[2017-04-25] MEDS: ceFAZolin 2 GM PREMIX 50 ML IV SCH ×3 (05:52→20:34)
[2017-04-25 06:22] LABS: PLEURAL FLUID LYMPHS 61 %
--- NOTE | 2017-04-25 06:33 | RADRPT ---
EXAM DATE/TIME: 04/25/2017 06:04 [facility] COMPARISON: CHEST SINGLE AP, April 25, 2017, 2:29. INDICATIONS : Short of breath. MEDICAL HISTORY : Arthritis. Cirrhosis. Seizures. ETOH withdrawal. Afib. HTN. Sleep apnea. SURGICAL HISTORY : Tracheostomy. Paracentesis ENCOUNTER: Subsequent ACUITY: 4 - 6 days PAIN SCORE: 0/10 LOCATION: Bilateral chest FINDINGS: Bilateral effusions right greater than left and diffuse bilateral patchy and confluent nodular infilt rates. Cardiomegaly. CONCLUSION: No significant change has occurred. Watson Bermeo MD on April 25, 2017 at 6:32 Board Certified Radiologist. This report was verified electronically.
[2017-04-25 06:51] LABS: HEMATOCRIT 32.4 % (39.0-51.0); MEAN CELL VOLUME 85.6 FL (80.0-100.0); MEAN CORPUSCULAR HEMOGLOBIN 27.5 PG (27.0-34.0); MEAN CORPUSCULAR HGB CONC 32.1 % (32.0-36.0); PLATELET COUNT 136 TH/MM3 (150-450); RED BLOOD COUNT 3.78 MIL/MM3 (4.50-5.90); RED CELL DISTRIBUTION WIDTH 18.9 % (11.6-17.2); WHITE BLOOD COUNT 10.1 TH/MM3 (4.0-11.0)
--- NOTE | 2017-04-25 06:54 | PD.CONS ---
[facility] Service Critical Care Medicine Consult Requested By Dr. Gaviria Reason for Consult Acute hypoxemic respiratory failure Large right pleural effusion Reexpansion pulmonary edema Ascites Spontaneous bacterial peritonitis MSSA bacteremia Primary Care Physician Mushtaq Espinoza MD History of Present Illness Mr. Forrest is a 56 year old male patient with cirrhosis secondary to hepatitis C and alcohol dependence, atrial fibrillation, hypertension, GERD, sleep apnea, history of central pontine myelinolysis,ascites requiring paracentesis who admitted to [facility] with on 04/20/2017 for evaluation of decreased oral intake, probable sepsis and ascites. On presentation he was in atrial fibrillation with RVR. He was placed on Cardizem drip. His initial WBC count was 15K. Infectious disease was consulted and patient was placed on broad- spectrum antibiotic. Recently underwent paracentesis by IR on 04/21/17 with the fluid described as complex loculated and septated. Fluid culture grew MSSA. 3 out of 4 blood cultures on 04/20/17 growing MSSA. Paracentesis on 04/21/2017 650 cc fluid removed. Peritoneal WBC - 47776; peritoneal RBC - 411. Patient had been receiving Ancef and vancomycin per ID recommendation Critical care medicine was consulted today a.m. as patient was increasingly short of breath and dyspneic and hypoxemic. Patient was placed on BiPAP 15/ at 80% oxygen. I immediately evaluated the patient he appeared to be in moderate to severe distress. Bedside ultrasound showed large right-sided pleural effusion. I gave him 25 g of albumin and performed thoracentesis with 2 L of fluid removal. Chest x-ray postprocedure showed significant clearing of the right lung field but increased edema involving the left lung field. It is possible that patient has developed reexpansion pulmonary edema, I gave him 2 mg of IV bumex. Repeat Chest x-ray continues to show bilateral pulmonary edema , I have signed out this case to Dr. Bob who will most likely intubate the patient Review of Systems ROS Limitations: Clinical Condition, Altered Mental Status Past Family Social History Allergies: Coded Allergies: No Known Allergies (Unverified , 12/06/16) Past Medical History Chronic atrial fibrillation HTN cirrhosis arthritis History of central pontine myelinolysis History of respiratory failurerequiring mechanical ventilation, status post tracheostomy, decannulation History of alcohol abuse Past Surgical History Trach and peg, now removed Reported Medications No active medications at home Active Ordered Medications Reviewed Family History Both parents diabetic Social History Quit drinking several years ago. No smoking per chart Physical Exam Vital Signs Vital Signs Date Time Temp Pulse Resp B/P Pulse Ox O2 Delivery O2 Flow Rate FiO2 04/25/17 06:00 112 04/25/17 04:34 95 55 04/25/17 04:00 97.6 107 29 146/79 91 04/25/17 04:00 107 04/25/17 02:00 69 04/25/17 01:00 95 100 04/25/17 00:00 72 04/25/17 00:00 97.4 72 30 116/47 91 04/24/17 22:00 110 04/24/17 21:30 90 Partial Rebreather 04/24/17 20:00 129 04/24/17 20:00 98.0 129 31 122/56 80 04/24/17 18:00 122 04/24/17 17:32 92 Nasal Cannula 6.00 04/24/17 16:00 98.2 114 23 123/56 94 04/24/17 16:00 114 04/24/17 14:00 127 04/24/17 12:00 113 04/24/17 12:00 98.4 113 21 114/56 94 04/24/17 10:00 116 04/24/17 08:00 110 04/24/17 08:00 98.2 110 20 116/53 93 Physical Exam GENERAL: 57-year-old critically remaining now on BiPAP, FiO2 80% SKIN: Warm/dry. HEAD: Atraumatic. Normocephalic. EYES: Pupils equal and round. No scleral icterus. ENT: No nasal bleeding or discharge. BiPAP mask limits exam NECK: Trachea midline. No JVD. CARDIOVASCULAR: Irregularly irregular rate and rhythm, tachycardia. No murmur appreciated. RESPIRATORY: Air entry bilaterally but significantly diminished in bilateral lower lung tate. Large right pleural effusion GASTROINTESTINAL: Abdomen soft, distended from ascites, large ventral hernia. MUSCULOSKELETAL: No obvious deformities. NEUROLOGICAL: Awake and alert, lethargic and somnolent Motor grossly within normal limits. Laboratory Laboratory Tests Test 04/24/17 04/24/17 04/25/17 04/25/17 07:07 09:10 00:40 02:06 Creatinine 0.98 0.97 Estimat Glomerular Filtration 78 79 Rate Sodium Level 138 Potassium Level 3.5 Chloride Level 108 Carbon Dioxide Level 20.5 Anion Gap 10 Blood Urea Nitrogen 21 Random Glucose 110 Calcium Level 7.6 Blood Gas Puncture Site RT RADIAL Blood Gas Patient Temperature 98.6 Blood Gas HCO3 19 Blood Gas Base Excess -6.1 Blood Gas Oxygen Saturation 87 Arterial Blood pH 7.29 Arterial Blood Partial 42 Pressure CO2 Arterial Blood Partial 66 Pressure O2 Arterial Blood Oxygen Content 12.0 Arterial Blood 1.6 Carboxyhemoglobin Arterial Blood Methemoglobin 1.0 Blood Gas Hemoglobin 9.8 Oxygen Delivery Device Non-Rebreathing Mask Blood Gas Liter Flow 15 Blood Gas Inspired Oxygen 100 Pleural Fluid pH 8.5 Pleural Fluid WBC 286 Pleural Fluid RBC 1496 Pleural Fluid Neutrophils 38 Pleural Fluid Lymphocytes 61 Pleural Fluid Monocytes 1 Pleural Fluid Total Protein 2.7 Pleural Fluid LDH 145 Pleural Fluid Glucose 143 Date/Time Procedure Status Source Growth 04/25/17 02:06 Gram Stain Received Fluid Pleural Fluid Pending 04/25/17 02:06 Body Fluid Culture Received Fluid Pleural Fluid Pending 04/25/17 02:06 Fungal Smear Received Fluid Pleural Fluid Pending 04/25/17 02:06 Fungal Culture Received Fluid Pleural Fluid Pending 04/25/17 02:06 Acid Fast Stain Received Fluid Pleural Fluid Pending 04/25/17 02:06 Mycobacterial Culture Received Fluid Pleural Fluid Pending 04/21/17 16:20 Aerobic Blood Culture - Preliminary Resulted Blood Peripheral NO GROWTH IN 3 DAYS 04/21/17 16:20 Anaerobic Blood Culture - Preliminary Resulted Blood Peripheral NO GROWTH IN 3 DAYS 04/21/17 12:00 Gram Stain - Final Complete Fluid Ascites Fluid 04/21/17 12:00 Body Fluid Culture - Final Complete Staphylococcus Aureus 04/20/17 13:30 Aerobic Blood Culture - Final Complete Blood Peripheral Staphylococcus Aureus 04/20/17 13:30 Anaerobic Blood Culture - Final Complete Staphylococcus Aureus Result Diagram: 04/23/17 1220 04/24/17 0910 Imaging Imaging studies reviewed Septic Shock Reassessment Heart: Irregular Lungs: Course Skin: Dry Peripheral Pulses: Weak Right Radial Weak Left Radial Assessment and Plan Assessment and Plan Assessment and Plan Neuro Acute metabolic encephalopathy Hx of ETOH abuse History of central pontine myelinolysis with quadriparesis -- Monitor mental status closely, but about encephalopathy secondary to sepsis -- Minimize sedation CVS Pulmonary edema ? Reexpansion pulmonary edema versus ARDS Atrial fibrillation with RVR -- Continue Cardizem infusion -- Currently on Lovenox 70 mg every 12 -- 2d Echo no evidence of endocarditis, normal ejection fraction Pulmonary Acute hypoxemic respiratory failure Large right pleural effusion status post thoracentesis - Status post right thoracentesis and 2 L fluid removed with IV albumin infusing - Patient developed some degree of reexpansion pulmonary edema - IV Lasix 20 mg IV push given, if no significant improvement will need endotracheal intubation and mechanical ventilation - DuoNeb every 6 hours when necessary - Previous tracheostomy status post decannulation GI Spontaneous bacterial peritonitis secondary to MSSA Cirrhotic liver disease secondary to ETOH abuse and Hepatitis C Protein calorie malnutrition Ascites -- Prior U/S guided paracentesis 04/21/17, fluid was loculated and septated -- Exudative fluid growing MSSA indicated with peritonitis -- Antibiotics per ID -- Fluid culture growing MSSA Renal -- IV 2 mg Bumex given with not sufficient response -- Palmer catheter in place to monitor I/Os in critically ill patient Endocrine -- Electrolyte replacement protocol Heme Anemia Coagulopathy Right upper extremity DVT -- Anemia, and coagulopathy most likely secondary to chronic liver disease / ETOH use -- Transfused blood and blood products as needed -- Continue Lovenox 70 mg every 12 ID: MSSA bacteremia Spontaneous bacterial peritonitis -- Pertinent cultures: - Blood 04/20: 3/4 bottles MSSA - Ascitic fluid 04/21: MSSA Antibiotics per ID.Continue Ancef, vanco Prophylaxis: GI - Protonix DVT - SCDs; Lovenox 70 mg q 12 Discussed with bedside CC RN and [employer] for [facility] Patient at this time remains critically ill with severe sepsis acute encephalopathy severe hypoxemic respiratory failure. Large volume thoracentesis done on the right side but patient did develop reexpansion pulmonary edema. No sufficient improvement with diuresis. Most likely will need endotracheal intubation CCT 65 MIN excluding procedures Code Status Full Discussed Condition With [facility] service Seven Landin MD Apr 25, 2017 06:54 Seven Landin MD Apr 25, 2017 06:54 Seven Landin MD Apr 25, 2017 06:54
[2017-04-25 06:55] LABS: HEMO FLAGS AUTO DIFF
[2017-04-25] MEDS ORDERED: SUCCINYLCHOLINE CHLORIDE 200 MG/10 ML VIAL IV PUSH ONE (07:00)
[2017-04-25] MEDS ORDERED: ROCURONIUM INJ 100 MG/10 ML VIAL IV ONE (07:00)
[2017-04-25] MEDS ORDERED: fentaNYL CITRATE 250 MCG/5 ML AMP IV PUSH ONE (07:00)
[2017-04-25] MEDS ORDERED: ETOMIDATE 40 MG/20 ML VIAL IV PUSH ONE (07:00)
[2017-04-25] MEDS ORDERED: fentaNYL DRIP 250 ML IV SCH (07:00)
[2017-04-25] MEDS ORDERED: ROCURONIUM INJ 50 MG/5 ML VIAL ONE ×2 (07:06→07:07)
[2017-04-25 07:27] LABS: BICARBONATE 22.5 MEQ/L (21.0-32.0); POTASSIUM 3.4 MEQ/L (3.5-5.1)
[2017-04-25 07:45] LABS: BLOOD GAS BASE EXCESS -3.4 mmol/L (-2-2); BLOOD GAS CARBOXYHEMOGLOBIN 1.8 % (0-4); BLOOD GAS HCO3 21 mmol/L (22-26); BLOOD GAS METHEMOGLOBIN 0.8 % (0-2); BLOOD GAS O2 HGB SATURATION 95 % (90-100); BLOOD GAS OXYGEN CONTENT 12.9 Vol % (12.0-20.0); BLOOD GAS PCO2 37 mmHg (38-42); BLOOD GAS PO2 94 mmHg (61-120); BLOOD GAS TOTAL HGB 9.5 G/DL (12.0-16.0); CRITICAL VALUE NO; OXYGEN DEVICE BiPAP; TEMP CORR TO 98.6
[2017-04-25 07:46] LABS: DRAW SITE LT RADIAL; FIO2 100 %; NUMBER OF ARTERIAL PUNCTURES 1; STAT YES; ULNAR PULSE PRESENT; VENT SETTINGS IPAP14/EPAP6
[2017-04-25 08:40] LABS: BLOOD GAS BASE EXCESS -3.6 mmol/L (-2-2); BLOOD GAS CARBOXYHEMOGLOBIN 1.5 % (0-4); BLOOD GAS HCO3 22 mmol/L (22-26); BLOOD GAS O2 HGB SATURATION 95 % (90-100); BLOOD GAS OXYGEN CONTENT 12.7 Vol % (12.0-20.0); BLOOD GAS PCO2 43 mmHg (38-42); BLOOD GAS PO2 97 mmHg (61-120); BLOOD GAS TOTAL HGB 9.4 G/DL (12.0-16.0); CRITICAL VALUE NO; DRAW SITE LT RADIAL; FIO2 100 %; NUMBER OF ARTERIAL PUNCTURES 1; OXYGEN DEVICE VENTILATOR; STAT NO; TEMP CORR TO 98.6; ULNAR PULSE PRESENT; VENT SETTINGS A/C 16/550/PEEP8
[2017-04-25] MEDS: PROPOFOL 1000 MG/100 ML INJ 100 ML IV SCH ×2 (08:44→16:57)
--- NOTE | 2017-04-25 08:44 | RADRPT ---
EXAM DATE/TIME: 04/25/2017 08:08 [place] COMPARISON: CHEST SINGLE AP, April 25, 2017, 6:04. INDICATIONS : Post intubation and OG placement. MEDICAL HISTORY : Hypertension. Arthritis. Cirrhosis. SURGICAL HISTORY : None. ENCOUNTER: Subsequent ACUITY: 4 - 6 days PAIN SCORE: Non-responsive. LOCATION: Bilateral chest FINDINGS: ET tube right main bronchus. Nasogastric tube is not visualized in the stomach. It appears to be la y across the chest. Increasing patchy airspace disease. CONCLUSION: ET right main bronchus. Nasogastric tube is not across the GE junction. Rico Segura MD FACR on April 25, 2017 at 8:41 Board Certified Radiologist. This report was verified electronically.
[2017-04-25] MEDS: DILTIAZEM INJ 125 MG in SODIUM CHLORIDE 0.9% INJ 100 ML IV SCH (08:45)
[2017-04-25] MEDS: WATER IV SCH ×2 (08:45)
[2017-04-25] MEDS: DEXTROSE 5% IV SCH ×2 (08:45)
[2017-04-25] MEDS: AMIODARONE IV SCH ×2 (08:45)
[2017-04-25 09:19] LABS: BANDS 34 % (0-6); EOSINOPHILS 1 % (0-4); NEUTROPHIL # MANUAL DIFF 9.9 TH/MM3 (1.8-7.7); POLYS (SEG NEUTROPHILS) 64 % (16-70); WBC DIFF SAMPLE 100
[2017-04-25 09:21] LABS: SCAN/DIFF FINAL DIFF MANUAL
[2017-04-25 09:22] LABS: PLATELET ESTIMATE SMEAR LOW (NORMAL); PLATELET MORPHOLOGY NORMAL (NORMAL)
[2017-04-25 09:23] LABS: OVALOCYTES 1+ (NORMAL)
[2017-04-25] MEDS: RIFAXIMIN 550 MG TAB PO SCH ×2 (09:37→20:33)
[2017-04-25] MEDS: FUROSEMIDE 20 MG/2 ML VIAL IV PUSH SCH (09:37)
[2017-04-25] MEDS: LACTULOSE SYRUP 20 GM/30 ML CUP PO SCH (09:37)
[2017-04-25] MEDS: ENOXAPARIN SODIUM 80 MG/0.8 ML SYRINGE SQ SCH ×2 (09:37→20:33)
[2017-04-25] MEDS: METOPROLOL TARTRATE 25 MG TAB PO SCH ×2 (09:37→20:33)
[2017-04-25] MEDS: VANCOMYCIN INJ 1,200 MG in SODIUM CHLOR 0.9% 250 ML INJ 250 ML IV SCH (09:38)
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
--- NOTE | 2017-04-25 14:17 | PD.PROCEDR ---
Procedure Note Procedure Endotracheal Intubation Diagnosis: Acute hypoxemic respiratory failure Indications: Acute hypoxemic respiratory failure Consent: Emergent Anesthesia: see MAR Description of the Procedure: The patient was positioned in the sniffing position. Pre-oxygenation was performed using a 100% BVM. Anesthesia was induced via rapid sequence. A Glidescope 4 was used for laryngoscopy and a Grade 1 view was obtained. A 8.0 cuffed endotracheal tube was inserted atraumatically through the vocal cords. Confirmation of correct endotracheal tube placement was made by equal and bilateral breath sounds and colorimetric CO2 detection. The endotracheal tube was secured at 24 cm at the teeth. There were no immediate complications noted. The patient remained hemodynamically stable throughout the procedure. A chest x-ray has been ordered. I personally performed the procedure. iRsa Bob MD Apr 25, 2017 14:17
[2017-04-25] MEDS ORDERED: BUMETANIDE INJ 1 MG/4 ML VIAL IV PUSH ONE (14:30)
--- NOTE | 2017-04-25 14:39 | HHI.GIFU ---
Subjective Remarks Pt lying in bed, sedated on vent, intubated this morning. Objective Vitals I&O Vital Signs Date Time Temp Pulse Resp B/P Pulse Ox O2 Delivery O2 Flow Rate FiO2 04/25/17 13:44 98 90 04/25/17 12:00 97.7 109 18 130/63 99 04/25/17 12:00 109 04/25/17 12:00 100 04/25/17 10:08 97 100 04/25/17 10:00 114 04/25/17 09:00 100 04/25/17 08:15 97 100 04/25/17 08:05 100 04/25/17 08:00 144 04/25/17 08:00 97.7 144 44 161/109 99 04/25/17 06:00 112 04/25/17 04:34 95 55 04/25/17 04:00 97.6 107 29 146/79 91 04/25/17 04:00 107 04/25/17 02:00 69 04/25/17 01:00 95 100 04/25/17 00:00 72 04/25/17 00:00 97.4 72 30 116/47 91 04/24/17 22:00 110 04/24/17 21:30 90 Partial Rebreather 04/24/17 20:00 129 04/24/17 20:00 98.0 129 31 122/56 80 04/24/17 18:00 122 04/24/17 17:32 92 Nasal Cannula 6.00 04/24/17 16:00 98.2 114 23 123/56 94 04/24/17 16:00 114 I/O 04/24/17 04/24/17 04/24/17 04/25/17 04/25/17 04/25/17 07:00 15:00 23:00 07:00 15:00 23:00 Intake Total 845 ml 2207 ml 1257 ml 890 ml Output Total 75 ml 725 ml 400 ml 550 ml Balance 770 ml 1482 ml 857 ml 340 ml Intake Oral 834 ml 120 ml 0 ml IV Total 845 ml 1373 ml 1137 ml 890 ml Output Urine Total 75 ml 725 ml 400 ml 550 ml # Bowel Movements 2 0 1 Laboratory Laboratory Tests Test 04/25/17 04/25/17 04/25/17 04/25/17 00:40 02:06 05:51 07:28 Blood Gas Puncture Site RT RADIAL LT RADIAL Blood Gas Patient Temperature 98.6 98.6 Blood Gas HCO3 19 21 Blood Gas Base Excess -6.1 -3.4 Blood Gas Oxygen Saturation 87 95 Arterial Blood pH 7.29 7.37 Arterial Blood Partial 42 37 Pressure CO2 Arterial Blood Partial 66 94 Pressure O2 Arterial Blood Oxygen Content 12.0 12.9 Arterial Blood 1.6 1.8 Carboxyhemoglobin Arterial Blood Methemoglobin 1.0 0.8 Blood Gas Hemoglobin 9.8 9.5 Oxygen Delivery Device Non-Rebreathing BiPAP Mask Blood Gas Liter Flow 15 Blood Gas Inspired Oxygen 100 100 Pleural Fluid pH 8.5 Pleural Fluid WBC 286 Pleural Fluid RBC 1496 Pleural Fluid Neutrophils 38 Pleural Fluid Lymphocytes 61 Pleural Fluid Monocytes 1 Pleural Fluid Total Protein 2.7 Pleural Fluid LDH 145 Pleural Fluid Glucose 143 White Blood Count 10.1 Red Blood Count 3.78 Hemoglobin 10.4 Hematocrit 32.4 Mean Corpuscular Volume 85.6 Mean Corpuscular Hemoglobin 27.5 Mean Corpuscular Hemoglobin 32.1 Concent Red Cell Distribution Width 18.9 Platelet Count 136 Mean Platelet Volume 7.6 Neutrophils (%) (Auto) Lymphocytes (%) (Auto) Monocytes (%) (Auto) Eosinophils (%) (Auto) Basophils (%) (Auto) Neutrophils # (Auto) Lymphocytes # (Auto) Monocytes # (Auto) Eosinophils # (Auto) Basophils # (Auto) CBC Comment AUTO DIFF Differential Total Cells 100 Counted Neutrophils % (Manual) 64 Band Neutrophils % 34 Lymphocytes % 1 Eosinophils % 1 Neutrophils # (Manual) 9.9 Differential Comment FINAL DIFF MANUAL Platelet Estimate LOW Platelet Morphology Comment NORMAL Ovalocytes 1+ Sodium Level 143 Potassium Level 3.4 Chloride Level 111 Carbon Dioxide Level 22.5 Anion Gap 10 Blood Urea Nitrogen 22 Creatinine 0.97 Estimat Glomerular Filtration 79 Rate Random Glucose 109 Calcium Level 8.0 Blood Gas Ventilator Setting IPAP14/EPAP6 Test 04/25/17 08:25 Blood Gas Puncture Site LT RADIAL Blood Gas Patient Temperature 98.6 Blood Gas HCO3 22 Blood Gas Base Excess -3.6 Blood Gas Oxygen Saturation 95 Arterial Blood pH 7.32 Arterial Blood Partial 43 Pressure CO2 Arterial Blood Partial 97 Pressure O2 Arterial Blood Oxygen Content 12.7 Arterial Blood 1.5 Carboxyhemoglobin Arterial Blood Methemoglobin 1.0 Blood Gas Hemoglobin 9.4 Oxygen Delivery Device VENTILATOR Blood Gas Ventilator Setting A/C 16/550/PEEP8 Blood Gas Inspired Oxygen 100 Date/Time Procedure Status Source Growth 04/25/17 02:06 Gram Stain - Final Resulted Fluid Pleural Fluid 04/25/17 02:06 Body Fluid Culture Resulted Fluid Pleural Fluid Pending 04/25/17 02:06 Fungal Smear - Final Resulted Fluid Pleural Fluid NO FUNGAL ELEMENTS SEEN. 04/25/17 02:06 Fungal Culture Resulted Fluid Pleural Fluid Pending 04/25/17 02:06 Acid Fast Stain Received Fluid Pleural Fluid Pending 04/25/17 02:06 Mycobacterial Culture Received Fluid Pleural Fluid Pending 04/21/17 16:20 Aerobic Blood Culture - Preliminary Resulted Blood Peripheral NO GROWTH IN 4 DAYS 04/21/17 16:20 Anaerobic Blood Culture - Preliminary Resulted Blood Peripheral NO GROWTH IN 4 DAYS Imaging Last Impressions Chest X-Ray 04/25/17 0000 Signed Impressions: Service Date/Time: Tuesday, April 25, 2017 08:08 - CONCLUSION: ET right main bronchus. Nasogastric tube is not across the GE junction. Rico Segura MD FACR Upper Extremity Ultrasound 04/23/17 0000 Signed Impressions: Service Date/Time: Sunday, April 23, 2017 10:50 - CONCLUSION: DVT in the right upper extremity seen in the right basilic vein. There is also superficial thrombus in the right cephalic vein. Muhstaq Brown MD Cyst Biopsy Asp-Paracentesis US 04/21/17 0000 Signed Impressions: Service Date/Time: April 11:07 - CONCLUSION: Uncomplicated ultrasound guided paracentesis. Please note that the fluid throughout the abdomen is extremely complex with septations. This can be seen when the fluid has become infected or is complicated by hemorrhage or malignancy. Mushtaq Alexis MD Abdomen/Pelvis CT 04/20/17 0000 Signed Impressions: Service Date/Time: Thursday, April 20, 2017 13:56 - CONCLUSION: 1. Moderate volume free fluid in the abdomen and pelvis with possible associated peritoneal thickening. Thickening of the peritoneal lining can be seen with infection. 2. Large right and moderate size left pleural effusion with associated compressive atelectasis. 3. There is an umbilical hernia containing fluid and fat and fluid containing hernia superior and to the left of the umbilicus. This hernia also contains a portion of the transverse colon. 4. Nonacute findings include changes related to chronic liver disease including recanalized paraumbilical vein and bilateral gynecomastia. 5. Other nonacute findings include cholelithiasis and moderate atherosclerotic disease. Mushtaq Alexis MD Physical Exam HEENT: normocephalic; atraumatic; no jaundice. CHEST: couarse CARDIAC: RRR ABDOMEN: semifirm, distended, umbilical hernia, hernia LUQ, nontender; bowel sounds are present in all four quadrants. EXTREMITIES: No clubbing, cyanosis, or edema. SKIN: ecchymotic right upper extremity TRANSFER ENGINEER: intubated Assessment and Plan Plan ASSESSMENT - ascites/cirrhosis - small & nodular appearing liver on CT. LFTs WNL currently. Pt admits liver problem but cannot explain further. s/p paracentesis. ammonia 18 SAAG 0.7, MELD 11, AFP 1.7 cytology pending , cx revealed staphylococcus aureus fluid analysis, wbc [id number], RBC 411, rest wnl. Hep C quant 25,000, genotype pending CT 04-20-17--> mod free fluid abd and pelvis with poss associated peritoneal thickening, pleural effusions, umbilical hernia, hernia superior and left of umbilicus containing portion of transverse colon, changes r/t chronic liver dz including recanalized paraumbilical vein, cholelithiasis - SBP- cx revealed staphylococcus aureus, abx Cefazolin, vanco - anemia - 12.4 on admission. today hgb 10.4. No active bleeding. normocytic. hx UGIB in 2014 2/2 portal hypertensive gastropathy. - leukocytosis - 15.2 on admission now WNL, - Hypoalbuminemia- albumin BID - Hx of hep-C- quant 22,500 - Right DVT on US, per attending - PNA, AF RVR per primary, cardiology following, ID following PLAN - Await hep c genotype - lactulose - Xifaxan - albumin - Await cytology - Diuretics if BP allows - further recommendations to follow This pt seen by myself and Zeeshan and this note is written on his behalf Julia Decker Apr 25, 2017 14:39
[2017-04-25] MEDS: POTASSIUM CHLOR 20 MEQ PREMIX 100 ML IV PRN ×2 (15:44→16:57)
[2017-04-25] MEDS: CHLORHEXIDINE 0.12% (ORAL KIT) 15 ML CUP MT SCH (20:33)
[2017-04-26] VITALS (49 sets, daily range): BP systolic 123–177; BP diastolic 59–145; PULSE 65–86; RESP 18–37; TEMP 97–98.5; O2SAT 82–100
[2017-04-26] MEDS ORDERED: PHARMACY ORDERED LAB ONE (01:45)
[2017-04-26] MEDS: WATER IV SCH ×2 (02:53)
[2017-04-26] MEDS: AMIODARONE IV SCH ×2 (02:53)
[2017-04-26] MEDS: DEXTROSE 5% IV SCH ×2 (02:53)
[2017-04-26] MEDS: ALBUMIN HUMAN 25% 25 GM/100 ML BAGP IV SCH ×2 (03:04→16:38)
[2017-04-26] MEDS: CHLORHEXIDINE GLUCONATE 2 % 1 PACK (2 CLOTHS)(taper/protocol) TOPICAL SCH (03:04)
[2017-04-26] MEDS: RESP: ALBUTEROL 2.5 MG/IPRATROPIUM 0.5 MG NEB (SCH) NEB ×4 (03:12→21:07)
[2017-04-26] MEDS: PROPOFOL 1000 MG/100 ML INJ 100 ML IV SCH ×3 (04:35→22:25)
--- NOTE | 2017-04-26 04:58 | RADRPT ---
EXAM DATE/TIME: 04/26/2017 03:40 [facility] COMPARISON: CHEST SINGLE AP, April 25, 2017, 8:08. INDICATIONS : Respiratory failure. MEDICAL HISTORY : Hypertension. Arthritis. Cirrhosis. SURGICAL HISTORY : None. ENCOUNTER: Subsequent ACUITY: 1 week PAIN SCORE: Non-responsive. LOCATION: Bilateral chest FINDINGS: Diffuse bilateral infiltrates, cardiomegaly and effusions again noted. Endotracheal tube and NG tube identified. CONCLUSION: No significant change has occurred. Watson Bermeo MD on April 26, 2017 at 4:56 Board Certified Radiologist. This report was verified electronically.
[2017-04-26] MEDS: ceFAZolin 2 GM PREMIX 50 ML IV SCH ×3 (05:03→22:25)
[2017-04-26 06:10] LABS: BLOOD GAS BASE EXCESS -3.4 mmol/L (-2-2); BLOOD GAS CARBOXYHEMOGLOBIN 1.8 % (0-4); BLOOD GAS HCO3 21 mmol/L (22-26); BLOOD GAS METHEMOGLOBIN 0.8 % (0-2); BLOOD GAS O2 HGB SATURATION 89 % (90-100); BLOOD GAS OXYGEN CONTENT 10.8 Vol % (12.0-20.0); BLOOD GAS PCO2 35 mmHg (38-42); BLOOD GAS PO2 63 mmHg (61-120); BLOOD GAS TOTAL HGB 8.6 G/DL (12.0-16.0); TEMP CORR TO 98.6
[2017-04-26 06:11] LABS: CRITICAL VALUE YES; DRAW SITE RT RADIAL; FIO2 80 %; NUMBER OF ARTERIAL PUNCTURES 1; OXYGEN DEVICE VENTILATOR; STAT NO; VENT SETTINGS AC550/18/+8
[2017-04-26 06:57] LABS: AUTOMATED NEUTROPHIL # 11.6 TH/MM3 (1.8-7.7); BASOPHIL % 0.2 % (0.0-2.0); EOSINOPHIL # 0.1 TH/MM3 (0-0.4); EOSINOPHIL % 1.1 % (0.0-4.0); HEMATOCRIT 27.6 % (39.0-51.0); HEMO FLAGS DIFF FINAL; LYMPH % 3.8 % (9.0-44.0); LYMPHOCYTE # 0.5 TH/MM3 (1.0-4.8); MEAN CELL VOLUME 84.8 FL (80.0-100.0); MEAN CORPUSCULAR HEMOGLOBIN 27.4 PG (27.0-34.0); MEAN CORPUSCULAR HGB CONC 32.3 % (32.0-36.0); MONO % 2.3 % (0.0-8.0); NEUT % 92.6 % (16.0-70.0); PLATELET COUNT 115 TH/MM3 (150-450); RED BLOOD COUNT 3.25 MIL/MM3 (4.50-5.90); RED CELL DISTRIBUTION WIDTH 19.3 % (11.6-17.2); WHITE BLOOD COUNT 12.5 TH/MM3 (4.0-11.0)
[2017-04-26 07:36] LABS: ALKALINE PHOSPHATASE 60 U/L (45-117); ALT (GPT) 6 U/L (12-78); ANION GAP 9 MEQ/L (5-15); AST (GOT) 18 U/L (15-37); BLOOD UREA NITROGEN 23 MG/DL (7-18); CHLORIDE 112 MEQ/L (98-107); GLOMERULAR FILTRATION RATE 63 ML/MIN (>89); MAGNESIUM 1.6 MG/DL (1.5-2.5); POTASSIUM 3.2 MEQ/L (3.5-5.1); SODIUM (NA) 145 MEQ/L (136-145); TOTAL BILIRUBIN ADULT 0.7 MG/DL (0.2-1.0)
[2017-04-26] MEDS: CHLORHEXIDINE 0.12% (ORAL KIT) 15 ML CUP MT SCH ×2 (08:01→19:56)
[2017-04-26] MEDS: ENOXAPARIN SODIUM 80 MG/0.8 ML SYRINGE SQ SCH ×2 (08:02→19:55)
[2017-04-26] MEDS: METOPROLOL TARTRATE 25 MG TAB PO SCH ×2 (08:02→19:55)
[2017-04-26] MEDS: LACTULOSE SYRUP 20 GM/30 ML CUP PO SCH (08:02)
[2017-04-26] MEDS: RIFAXIMIN 550 MG TAB PO SCH ×2 (08:02→19:55)
[2017-04-26] MEDS: FUROSEMIDE 20 MG/2 ML VIAL IV PUSH SCH (08:02)
[2017-04-26] MEDS: POTASSIUM CHLOR 20 MEQ PREMIX 100 ML IV PRN ×4 (08:05→14:27)
--- NOTE | 2017-04-26 09:59 | HHI.CCPN ---
Subjective Remarks/Hospital Course History of Present Illness Mr. Forrest is a 56 year old male patient with cirrhosis secondary to hepatitis C and alcohol dependence, atrial fibrillation, hypertension, GERD, sleep apnea, history of central pontine myelinolysis,ascites requiring paracentesis who admitted to [facility] with on 04/20/2017 for evaluation of decreased oral intake, probable sepsis and ascites. An EKG on admission showed atrial fibrillation with RVR. His initial WBC count was 15K. Infectious disease was consulted and patient was placed on broad-spectrum antibiotic. Recently underwent paracentesis by IR on 04/21/17 with the fluid was described as loculated and septated. Fluid culture grew MSSA. 3 out of 4 blood cultures on 04/20/17 growing MSSA. For Atrial fibrillation with RVR patient was placed on Cardizem drip. Paracentesis on 04/21/2017 650 ccfluid removed. Peritoneal WBC - [id number]; peritoneal RBC - 411. Patient had been receiving Ancef and vancomycin per ID recommendation Critical care medicine was consulted today a.m. as patient was increasingly short of breath and dyspneic and hypoxemic. Patient was placed on BiPAP 15/7 at 80% oxygen. I immediately evaluated the patient he appeared to be in moderate to severe distress. Bedside ultrasound showed large right-sided pleural effusion. I gave him 25 g of albumin and performed thoracentesis with 2 L of fluid removal. Chest x-ray postprocedure showed significant clearing of the right lung field but increased edema involving the left lung field. It is possible that patient has developed reexpansion pulmonary edema, I gave him 2 mg of IV bumex. Repeat Chest x-ray continues to show bilateral pulmonary edema , I have signed out this case to Dr. Bob who will most likely intubated the patient. Subjective subjective: 04/26: The patient required intubation, due to hypoxemic respiratory failure last a.m.. Patient still requires has high oxygen and ventilatory requirements,PEEP increased to 10. Aggressive diuresis continues. The patient converted to normal sinus rhythm yesterday afternoon amiodarone has been discontinued Cardizem has been discontinued. The patient continues on metoprolol twice a day. Objective Vital Signs Date Time Temp Pulse Resp B/P Pulse Ox O2 Delivery O2 Flow Rate FiO2 04/26/17 09:00 67 19 128/62 97 04/26/17 08:30 97.8 04/26/17 08:00 90 04/24/17 21:30 Partial Rebreather 04/24/17 17:32 6.00 Intake and Output 04/25/17 04/25/17 04/26/17 08:00 16:00 00:00 Intake Total 890 ml 659 ml 316 ml Output Total 550 ml 625 ml 375 ml Balance 340 ml 34 ml -59 ml Result Diagram: 04/26/17 0508 04/26/17 0508 Other Results Laboratory Tests Test 04/26/17 06:00 Blood Gas Puncture Site RT RADIAL Blood Gas Patient Temperature 98.6 Blood Gas HCO3 21 mmol/L (22-26) Blood Gas Base Excess -3.4 mmol/L (-2-2) Blood Gas Oxygen Saturation 89 % (90-100) Arterial Blood pH 7.39 (7.380-7.420) Arterial Blood Partial 35 mmHg (38-42) Pressure CO2 Arterial Blood Partial 63 mmHg Pressure O2 (61-120) Arterial Blood Oxygen Content 10.8 Vol % (12.0-20.0) Arterial Blood 1.8 % (0-4) Carboxyhemoglobin Arterial Blood Methemoglobin 0.8 % (0-2) Blood Gas Hemoglobin 8.6 G/DL (12.0-16.0) Oxygen Delivery Device VENTILATOR Blood Gas Ventilator Setting AC550/18/+8 Blood Gas Inspired Oxygen 80 % Imaging Imaging studies reviewed Objective Remarks GENERAL: 57-year-old critically ill male, currently intubated and sedated SKIN: Warm/dry. HEAD: Atraumatic. Normocephalic. EYES: Pupils equal and round. No scleral icterus. ENT: No nasal bleeding or discharge. BiPAP mask limits exam NECK: Trachea midline. No JVD. CARDIOVASCULAR: Irregularly irregular rate and rhythm, tachycardia. No murmur appreciated. RESPIRATORY: Air entry bilaterally but significantly diminished in bilateral lower lung tate. Crackles noted left greater than right lung tate GASTROINTESTINAL: Abdomen soft, distended from ascites, large ventral hernia. MUSCULOSKELETAL: No obvious deformities. NEUROLOGICAL: GCS 3T . Intubated and sedated Urinary Catheter: Yes Palmer insert reason: ICU Pt Getting Diuretics Date of Insertion: Apr 25, 2017 A/P Assessment and Plan Assessment and Plan 1) Neuro Acute metabolic encephalopathy Hx of ETOH abuse History of central pontine myelinolysis with quadriparesis -- Discontinue fentanyl infusion, propofol infusion for ventilator synchrony -- Sedation vacation when clinically indicated unable at this time due to high ventilator requirements -Continue rifaximin and lactulose -monitor ammonia level 2) CVS Pulmonary edema Reexpansion pulmonary edema versus ARDS Atrial fibrillation with RVR-resolved -- Discontinue amiodarone and Cardizem infusions -- Currently on Lovenox 70 mg every 12 -- 2d Echo no evidence of endocarditis, normal ejection fraction --Increase Lasix 40 daily 3) Pulmonary Acute hypoxemic respiratory failure Large right pleural effusion status post thoracentesis - Status post right thoracentesis and 2 L fluid removed with IV albumin infusing - Patient developed some degree of reexpansion pulmonary edema - Intubation 04/25 - DuoNeb every 6 hours when necessary - Previous tracheostomy status post decannulation -Increase Lasix 40 mg daily 4) GI Spontaneous bacterial peritonitis secondary to MSSA Cirrhotic liver disease secondary to ETOH abuse and Hepatitis C Protein calorie malnutrition Ascites -- Prior U/S guided paracentesis 04/21/17, fluid was loculated and septated -- Exudative fluid growing MSSA indicated with peritonitis -- Antibiotics per ID,Dr. Mccurdy -- Fluid culture growing MSSA 5) Renal -- 04/25 IV 2 mg Bumex given with not sufficient response -- Palmer catheter in place to monitor I/Os in critically ill patient --04/26 Lasix 40mg q day -- Initiate Albumin 5% BID 6) Endocrine -- Electrolyte replacement protocol 7) Heme Anemia Coagulopathy Right upper extremity DVT -- Anemia, and coagulopathy most likely secondary to chronic liver disease / ETOH use -- Transfused blood and blood products as needed -- Continue Lovenox 70 mg every 12 8) ID: MSSA bacteremia Spontaneous bacterial peritonitis -- Pertinent cultures: - Blood 04/20: 3/4 bottles MSSA - Ascitic fluid 04/21: MSSA - Pleural fluid- NGTD Antibiotics per ID.Continue Ancef, vanco 9) Prophylaxis: GI - Protonix DVT - SCDs; Lovenox 70 mg q 12 Discussed with SUPERVISING PRODUCER at bedside Patient at this time remains critically ill with severe sepsis acute encephalopathy severe hypoxemic respiratory failure. Palliative care consulted. Prognosis guarded This patient remains critically ill with one or more organ systems which are or may become a threat to life. I have spent in excess of 37 minutes discontinuously in the care and management of this patient. This time is exclusive of procedures, and includes, but is not limited to, evaluation of the patient, review of the medical record, discussions with family, consultants, nursing staff, or respiratory therapy, and documentation in the medical record. Physician Risa Olsen MD Apr 26, 2017 09:59
[2017-04-26] MEDS ORDERED: FUROSEMIDE 20 MG/2 ML VIAL IV PUSH ONE (10:00)
[2017-04-26] MEDS: ALBUMIN HUMAN 5% 12.5 GM/250 ML BOTTLE IV SCH ×2 (10:47→22:25)
[2017-04-26 11:06] LABS: BLOOD GAS BASE EXCESS -3.7 mmol/L (-2-2); BLOOD GAS CARBOXYHEMOGLOBIN 1.9 % (0-4); BLOOD GAS HCO3 21 mmol/L (22-26); BLOOD GAS METHEMOGLOBIN 0.9 % (0-2); BLOOD GAS O2 HGB SATURATION 92 % (90-100); BLOOD GAS PCO2 35 mmHg (38-42); BLOOD GAS PO2 70 mmHg (61-120); BLOOD GAS TOTAL HGB 8.5 G/DL (12.0-16.0); CRITICAL VALUE NO; DRAW SITE LT RADIAL; FIO2 70 %; NUMBER OF ARTERIAL PUNCTURES 1; OXYGEN DEVICE VENTILATOR; TEMP CORR TO 98.6; ULNAR PULSE PRESENT; VENT SETTINGS A/C 18/550/PEEP10
[2017-04-26 11:07] LABS: STAT NO
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
--- NOTE | 2017-04-26 15:21 | HHI.GIFU ---
Subjective Remarks Pt intubated on vent. Objective Vitals I&O Vital Signs Date Time Temp Pulse Resp B/P Pulse Ox O2 Delivery O2 Flow Rate FiO2 04/26/17 14:00 69 04/26/17 13:00 65 19 125/63 97 04/26/17 12:40 66 19 126/61 97 04/26/17 12:20 65 19 125/67 97 04/26/17 12:10 95 70 04/26/17 12:00 70 04/26/17 12:00 65 04/26/17 12:00 97.0 65 20 130/65 96 04/26/17 11:40 65 19 125/66 96 04/26/17 11:20 65 19 125/66 95 04/26/17 11:00 66 18 128/66 95 04/26/17 10:40 66 19 128/66 96 04/26/17 10:20 66 19 126/72 94 04/26/17 10:11 94 70 04/26/17 10:00 66 04/26/17 10:00 66 19 123/79 95 04/26/17 09:57 95 70 04/26/17 09:00 67 19 128/62 97 04/26/17 08:40 67 19 130/65 97 04/26/17 08:30 97.8 69 19 97 04/26/17 08:20 71 19 133/65 93 04/26/17 08:00 73 04/26/17 08:00 73 20 130/59 93 04/26/17 08:00 90 04/26/17 07:40 72 20 134/70 97 04/26/17 07:30 74 20 97 04/26/17 07:20 74 20 138/66 95 04/26/17 07:00 74 21 142/77 99 04/26/17 06:47 74 21 139/64 96 04/26/17 06:41 86 37 177/145 82 04/26/17 06:30 73 20 99 04/26/17 06:20 73 20 134/62 98 04/26/17 06:00 75 23 136/71 93 04/26/17 06:00 75 04/26/17 05:40 75 21 134/64 95 04/26/17 05:30 74 21 96 04/26/17 05:20 75 22 136/64 95 04/26/17 05:00 77 24 139/64 96 04/26/17 04:40 75 20 135/65 97 04/26/17 04:30 75 20 96 04/26/17 04:28 96 90 04/26/17 04:00 90 04/26/17 04:00 76 04/26/17 04:00 98.0 76 20 137/65 94 04/26/17 02:00 75 04/26/17 00:30 98 90 04/26/17 00:00 90 04/26/17 00:00 98.1 66 22 128/63 97 04/26/17 00:00 66 04/25/17 22:06 97 80 04/25/17 22:00 61 04/25/17 20:00 97.8 66 21 124/60 92 04/25/17 20:00 66 04/25/17 20:00 90 04/25/17 18:00 66 04/25/17 17:01 92 90 04/25/17 16:00 97.8 66 19 121/61 93 04/25/17 16:00 90 04/25/17 16:00 66 I/O 04/25/17 04/25/17 04/25/17 04/26/17 04/26/17 04/26/17 07:00 15:00 23:00 07:00 15:00 23:00 Intake Total 890 ml 659 ml 805 ml 1153 ml Output Total 550 ml 625 ml 575 ml 325 ml Balance 340 ml 34 ml 230 ml 828 ml Intake Oral 0 ml IV Total 890 ml 559 ml 705 ml 766 ml Tube Feeding 17 ml Albumin 100 ml 100 ml 250 ml Other 120 ml Output Urine Total 550 ml 625 ml 575 ml 325 ml # Bowel Movements 1 1 1 Laboratory Laboratory Tests Test 04/26/17 04/26/17 04/26/17 05:08 06:00 10:48 White Blood Count 12.5 Red Blood Count 3.25 Hemoglobin 8.9 Hematocrit 27.6 Mean Corpuscular Volume 84.8 Mean Corpuscular Hemoglobin 27.4 Mean Corpuscular Hemoglobin 32.3 Concent Red Cell Distribution Width 19.3 Platelet Count 115 Mean Platelet Volume 7.7 Neutrophils (%) (Auto) 92.6 Lymphocytes (%) (Auto) 3.8 Monocytes (%) (Auto) 2.3 Eosinophils (%) (Auto) 1.1 Basophils (%) (Auto) 0.2 Neutrophils # (Auto) 11.6 Lymphocytes # (Auto) 0.5 Monocytes # (Auto) 0.3 Eosinophils # (Auto) 0.1 Basophils # (Auto) 0.0 CBC Comment DIFF FINAL Differential Comment Sodium Level 145 Potassium Level 3.2 Chloride Level 112 Carbon Dioxide Level 24.0 Anion Gap 9 Blood Urea Nitrogen 23 Creatinine 1.18 Estimat Glomerular Filtration 63 Rate Random Glucose 73 Calcium Level 8.0 Phosphorus Level 1.4 Magnesium Level 1.6 Total Bilirubin 0.7 Aspartate Amino Transf 18 (AST/SGOT) Alanine Aminotransferase 6 (ALT/SGPT) Alkaline Phosphatase 60 Total Protein 6.0 Albumin 3.0 Blood Gas Puncture Site RT RADIAL LT RADIAL Blood Gas Patient Temperature 98.6 98.6 Blood Gas HCO3 21 21 Blood Gas Base Excess -3.4 -3.7 Blood Gas Oxygen Saturation 89 92 Arterial Blood pH 7.39 7.39 Arterial Blood Partial 35 35 Pressure CO2 Arterial Blood Partial 63 70 Pressure O2 Arterial Blood Oxygen Content 10.8 11.0 Arterial Blood 1.8 1.9 Carboxyhemoglobin Arterial Blood Methemoglobin 0.8 0.9 Blood Gas Hemoglobin 8.6 8.5 Oxygen Delivery Device VENTILATOR VENTILATOR Blood Gas Ventilator Setting AC550/18/+8 A/C 18/550/PEEP10 Blood Gas Inspired Oxygen 80 70 Date/Time Procedure Status Source Growth 04/25/17 16:20 Gram Stain - Final Resulted Sputum Endotracheal 04/25/17 16:20 Sputum Culture Resulted Sputum Endotracheal Pending 04/25/17 02:06 Fungal Smear - Final Resulted Fluid Pleural Fluid NO FUNGAL ELEMENTS SEEN. 04/25/17 02:06 Fungal Culture Resulted Fluid Pleural Fluid Pending 04/25/17 02:06 Acid Fast Stain - Final Resulted Fluid Pleural Fluid NO ACID FAST BACILLI SEEN 04/25/17 02:06 Mycobacterial Culture Resulted Fluid Pleural Fluid Pending 04/21/17 16:20 Aerobic Blood Culture - Final Complete Blood Peripheral NO GROWTH IN 5 DAYS 04/21/17 16:20 Anaerobic Blood Culture - Final Complete Blood Peripheral NO GROWTH IN 5 DAYS Imaging Last Impressions Chest X-Ray 04/26/17 0600 Signed Impressions: Service Date/Time: Wednesday, April 26, 2017 03:40 - CONCLUSION: No significant change has occurred. Watson Bermeo MD Upper Extremity Ultrasound 04/23/17 0000 Signed Impressions: Service Date/Time: Sunday, April 23, 2017 10:50 - CONCLUSION: DVT in the right upper extremity seen in the right basilic vein. There is also superficial thrombus in the right cephalic vein. Mushtaq Brown MD Cyst Biopsy Asp-Paracentesis US 04/21/17 0000 Signed Impressions: Service Date/Time: April 11:07 - CONCLUSION: Uncomplicated ultrasound guided paracentesis. Please note that the fluid throughout the abdomen is extremely complex with septations. This can be seen when the fluid has become infected or is complicated by hemorrhage or malignancy. Mushtaq Alexis MD Abdomen/Pelvis CT 04/20/17 0000 Signed Impressions: Service Date/Time: Thursday, April 20, 2017 13:56 - CONCLUSION: 1. Moderate volume free fluid in the abdomen and pelvis with possible associated peritoneal thickening. Thickening of the peritoneal lining can be seen with infection. 2. Large right and moderate size left pleural effusion with associated compressive atelectasis. 3. There is an umbilical hernia containing fluid and fat and fluid containing hernia superior and to the left of the umbilicus. This hernia also contains a portion of the transverse colon. 4. Nonacute findings include changes related to chronic liver disease including recanalized paraumbilical vein and bilateral gynecomastia. 5. Other nonacute findings include cholelithiasis and moderate atherosclerotic disease. Mushtaq Alexis MD Physical Exam HEENT: normocephalic; atraumatic; no jaundice. intubated CHEST: coarse CARDIAC: RRR ABDOMEN: semifirm, distended, umbilical hernia, hernia LUQ, nontender; bowel sounds are present in all four quadrants. EXTREMITIES: No clubbing, cyanosis, or edema. SKIN: ecchymotic right upper extremity DRUG COORDINATOR: intubated Assessment and Plan Plan ASSESSMENT - ascites/cirrhosis - small & nodular appearing liver on CT. LFTs WNL currently. Pt admits liver problem but cannot explain further. s/p paracentesis. ammonia 18 SAAG 0.7, MELD 11, AFP 1.7 cytology pending , cx revealed staphylococcus aureus fluid analysis, wbc [id number], RBC 411, rest wnl. Hep C quant 25,000, genotype 3a CT 04-20-17--> mod free fluid abd and pelvis with poss associated peritoneal thickening, pleural effusions, umbilical hernia, hernia superior and left of umbilicus containing portion of transverse colon, changes r/t chronic liver dz including recanalized paraumbilical vein, cholelithiasis - SBP- cx revealed staphylococcus aureus, abx Cefazolin, vanco - anemia - 12.4 on admission. today hgb 10.4. No active bleeding. normocytic. hx UGIB in 2014 2/2 portal hypertensive gastropathy. - leukocytosis - 15.2 on admission now WNL, - Hypoalbuminemia- albumin BID - Hx of hep-C- quant 22,500 - Right DVT on US, per attending - PNA, AF RVR per primary, cardiology following, ID following PLAN - can f/u as outpt re hep c tx - lactulose - Xifaxan - albumin - Await cytology - Diuretics if BP allows - further recommendations to follow This pt seen by myself and Zeeshan and this note is written on his behalf Julia Decker Apr 26, 2017 15:21
[2017-04-27] VITALS (33 sets, daily range): BP systolic 117–135; BP diastolic 66–80; PULSE 57–73; RESP 19–29; TEMP 97.6–98.2; O2SAT 94–100
[2017-04-27] MEDS: ALBUMIN HUMAN 25% 25 GM/100 ML BAGP IV SCH ×2 (03:29→17:24)
[2017-04-27] MEDS: RESP: ALBUTEROL 2.5 MG/IPRATROPIUM 0.5 MG NEB (SCH) NEB ×3 (04:13→20:54)
[2017-04-27 04:54] LABS: BICARBONATE 22.8 MEQ/L (21.0-32.0); MAGNESIUM 1.5 MG/DL (1.5-2.5); POTASSIUM 3.9 MEQ/L (3.5-5.1)
[2017-04-27 05:04] LABS: RED BLOOD COUNT 2.44 MIL/MM3 (4.50-5.90); WHITE BLOOD COUNT 6.4 TH/MM3 (4.0-11.0)
[2017-04-27 05:05] LABS: HEMATOCRIT 20.5 % (39.0-51.0); MEAN CELL VOLUME 83.7 FL (80.0-100.0); MEAN CORPUSCULAR HEMOGLOBIN 28.2 PG (27.0-34.0); MEAN CORPUSCULAR HGB CONC 33.7 % (32.0-36.0); PLATELET COUNT 19 TH/MM3 (150-450); RED CELL DISTRIBUTION WIDTH 19.4 % (11.6-17.2)
[2017-04-27 05:40] LABS: BLOOD GAS BASE EXCESS -4.6 mmol/L (-2-2); BLOOD GAS CARBOXYHEMOGLOBIN 2.1 % (0-4); BLOOD GAS HCO3 20 mmol/L (22-26); BLOOD GAS METHEMOGLOBIN 0.8 % (0-2); BLOOD GAS O2 HGB SATURATION 92 % (90-100); BLOOD GAS OXYGEN CONTENT 10.8 Vol % (12.0-20.0); BLOOD GAS PCO2 33 mmHg (38-42); BLOOD GAS PO2 73 mmHg (61-120); BLOOD GAS TOTAL HGB 8.3 G/DL (12.0-16.0); CRITICAL VALUE NO; OXYGEN DEVICE VENTILATOR; TEMP CORR TO 98.6
[2017-04-27 05:41] LABS: DRAW SITE RT BRACHIAL; FIO2 70 %; NUMBER OF ARTERIAL PUNCTURES 2; STAT NO; VENT SETTINGS AC550/18/+10
[2017-04-27] MEDS: ceFAZolin 2 GM PREMIX 50 ML IV SCH ×3 (05:48→20:35)
--- NOTE | 2017-04-27 05:54 | RADRPT ---
EXAM DATE/TIME: 04/27/2017 04:29 [facility] COMPARISON: CHEST SINGLE AP, April 26, 2017, 3:40. INDICATIONS : Short of breath. MEDICAL HISTORY : Hypertension. Arthritis. Cirrhosis. SURGICAL HISTORY : None. ENCOUNTER: Subsequent ACUITY: 4 - 6 days PAIN SCORE: 0/10 LOCATION: Bilateral chest FINDINGS: Single portable semiupright chest radiograph demonstrates a stable appearance in the previous study w ith cardiomegaly, bilateral consolidation, endotracheal tube and enteric tube. The lung bases are not fully imaged on this study. CONCLUSION: Overall stable appearance of the chest. Watson Bermeo MD on April 27, 2017 at 5:52 Board Certified Radiologist. This report was verified electronically.
[2017-04-27 05:55] LABS: AUTOMATED NEUTROPHIL # 8.8 TH/MM3 (1.8-7.7); BASOPHIL % 0.1 % (0.0-2.0); EOSINOPHIL # 0.1 TH/MM3 (0-0.4); EOSINOPHIL % 1.3 % (0.0-4.0); HEMATOCRIT 25.2 % (39.0-51.0); LYMPH % 5.2 % (9.0-44.0); LYMPHOCYTE # 0.5 TH/MM3 (1.0-4.8); MEAN CELL VOLUME 83.7 FL (80.0-100.0); MEAN CORPUSCULAR HEMOGLOBIN 28.3 PG (27.0-34.0); MEAN CORPUSCULAR HGB CONC 33.8 % (32.0-36.0); NEUT % 90.4 % (16.0-70.0); PLATELET COUNT 83 TH/MM3 (150-450); RED BLOOD COUNT 3.01 MIL/MM3 (4.50-5.90); WHITE BLOOD COUNT 9.7 TH/MM3 (4.0-11.0)
[2017-04-27 05:58] LABS: HEMO FLAGS AUTO DIFF
[2017-04-27 06:33] LABS: BANDS 16 % (0-6); NEUTROPHIL # MANUAL DIFF 9.2 TH/MM3 (1.8-7.7); POLYS (SEG NEUTROPHILS) 79 % (16-70); WBC DIFF SAMPLE 100
[2017-04-27 06:34] LABS: BURR CELLS 1+ (NORMAL); KERATOCYTES 1+ (NORMAL); OVALOCYTES 1+ (NORMAL); PLATELET ESTIMATE SMEAR LOW (NORMAL); PLATELET MORPHOLOGY NORMAL (NORMAL); SCAN/DIFF FINAL DIFF MANUAL; TEARDROP RBCS 1+ (NORMAL)
[2017-04-27] MEDS: PROPOFOL 1000 MG/100 ML INJ 100 ML IV SCH ×3 (07:20→20:32)
[2017-04-27] MEDS: CHLORHEXIDINE 0.12% (ORAL KIT) 15 ML CUP MT SCH ×2 (08:00→20:00)
[2017-04-27] MEDS ORDERED: FUROSEMIDE 40 MG/4 ML VIAL IV PUSH SCH (09:00)
[2017-04-27] MEDS: POTASSIUM PHOSPHATE MONOBASIC 500 MG TAB PO PRN (09:45)
[2017-04-27] MEDS: RIFAXIMIN 550 MG TAB PO SCH ×2 (09:46→20:35)
[2017-04-27] MEDS: ALBUMIN HUMAN 5% 12.5 GM/250 ML BOTTLE IV SCH ×2 (09:46→20:34)
[2017-04-27] MEDS: METOPROLOL TARTRATE 25 MG TAB PO SCH ×2 (09:46→20:35)
[2017-04-27] MEDS: ENOXAPARIN SODIUM 80 MG/0.8 ML SYRINGE SQ SCH ×2 (09:46→20:35)
[2017-04-27] MEDS: LACTULOSE SYRUP 20 GM/30 ML CUP PO SCH (09:46)
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
--- NOTE | 2017-04-27 10:57 | HHI.CCPN ---
Subjective Remarks/Hospital Course History of Present Illness Mr. Forrest is a 56 year old male patient with cirrhosis secondary to hepatitis C and alcohol dependence, atrial fibrillation, hypertension, GERD, sleep apnea, history of central pontine myelinolysis,ascites requiring paracentesis who admitted to [facility] with on 04/20/2017 for evaluation of decreased oral intake, probable sepsis and ascites. An EKG on admission showed atrial fibrillation with RVR. His initial WBC count was 15K. Infectious disease was consulted and patient was placed on broad-spectrum antibiotic. Recently underwent paracentesis by IR on 04/21/17 with the fluid was described as loculated and septated. Fluid culture grew MSSA. 3 out of 4 blood cultures on 04/20/17 growing MSSA. For Atrial fibrillation with RVR patient was placed on Cardizem drip. Paracentesis on 04/21/2017 650 ccfluid removed. Peritoneal WBC - 39935; peritoneal RBC - 411. Patient had been receiving Ancef and vancomycin per ID recommendation Critical care medicine was consulted today a.m. as patient was increasingly short of breath and dyspneic and hypoxemic. Patient was placed on BiPAP 15/7 at 80% oxygen. I immediately evaluated the patient he appeared to be in moderate to severe distress. Bedside ultrasound showed large right-sided pleural effusion. I gave him 25 g of albumin and performed thoracentesis with 2 L of fluid removal. Chest x-ray postprocedure showed significant clearing of the right lung field but increased edema involving the left lung field. It is possible that patient has developed reexpansion pulmonary edema, I gave him 2 mg of IV bumex. Repeat Chest x-ray continues to show bilateral pulmonary edema , I have signed out this case to Dr. Bob who will most likely intubated the patient. Subjective subjective: 04/26: The patient required intubation, due to hypoxemic respiratory failure last a.m.. Patient still requires has high oxygen and ventilatory requirements,PEEP increased to 10. Aggressive diuresis continues. The patient converted to normal sinus rhythm yesterday afternoon amiodarone has been discontinued Cardizem has been discontinued. The patient continues on metoprolol twice a day. 04/27: Decreased urinary output overnight. Bumex 1 mg/hour instituted. Plan for repeat paracentesis procedure. The patient remains normal sinus rhythm. Objective Vital Signs Date Time Temp Pulse Resp B/P Pulse Ox O2 Delivery O2 Flow Rate FiO2 04/27/17 07:32 99 65 04/27/17 06:00 67 04/27/17 04:00 98.1 23 135/67 04/24/17 21:30 Partial Rebreather 04/24/17 17:32 6.00 Intake and Output 04/26/17 04/26/17 04/26/17 07:59 15:59 23:59 Intake Total 489 ml 1153 ml 566 ml Output Total 200 ml 325 ml 250 ml Balance 289 ml 828 ml 316 ml Result Diagram: 04/27/17 0545 04/27/17 0359 Other Results Laboratory Tests Test 04/26/17 04/27/17 10:48 05:34 Blood Gas Puncture Site LT RADIAL RT BRACHIAL Blood Gas Patient Temperature 98.6 98.6 Blood Gas HCO3 21 mmol/L 20 mmol/L (22-26) (22-26) Blood Gas Base Excess -3.7 mmol/L -4.6 mmol/L (-2-2) (-2-2) Blood Gas Oxygen Saturation 92 % (90-100) 92 % (90-100) Arterial Blood pH 7.39 7.39 (7.380-7.420) (7.380-7.420) Arterial Blood Partial 35 mmHg (38-42) 33 mmHg (38-42) Pressure CO2 Arterial Blood Partial 70 mmHg 73 mmHg Pressure O2 (61-120) (61-120) Arterial Blood Oxygen Content 11.0 Vol % 10.8 Vol % (12.0-20.0) (12.0-20.0) Arterial Blood 1.9 % (0-4) 2.1 % (0-4) Carboxyhemoglobin Arterial Blood Methemoglobin 0.9 % (0-2) 0.8 % (0-2) Blood Gas Hemoglobin 8.5 G/DL 8.3 G/DL (12.0-16.0) (12.0-16.0) Oxygen Delivery Device VENTILATOR VENTILATOR Blood Gas Ventilator Setting A/C AC550/18/+10 18/550/PEEP10 Blood Gas Inspired Oxygen 70 % 70 % Imaging Imaging studies reviewed Objective Remarks GENERAL: 57-year-old critically ill male, currently intubated and sedated SKIN: Warm/dry. HEAD: Atraumatic. Normocephalic. EYES: Pupils equal and round. No scleral icterus. ENT: No nasal bleeding or discharge. BiPAP mask limits exam NECK: Trachea midline. No JVD. CARDIOVASCULAR: Irregularly irregular rate and rhythm, tachycardia. No murmur appreciated. RESPIRATORY: Air entry bilaterally but significantly diminished in bilateral lower lung tate. Crackles noted left greater than right lung tate GASTROINTESTINAL: Abdomen soft, distended from ascites, large ventral hernia. MUSCULOSKELETAL: No obvious deformities. NEUROLOGICAL: GCS 3T . Intubated and sedated Procedures Planned Paracentesis Date of Insertion: Apr 25, 2017 A/P Assessment and Plan Assessment and Plan 1) Neuro Acute metabolic encephalopathy Hx of ETOH abuse History of central pontine myelinolysis with quadriparesis -- Propofol infusion for ventilator synchrony -- Sedation vacation when clinically indicated unable at this time due to high ventilator requirements -Continue rifaximin and lactulose -monitor ammonia level 2) CVS Pulmonary edema Reexpansion pulmonary edema versus ARDS Atrial fibrillation with RVR-resolved -- 04/26 Discontinued amiodarone and Cardizem infusions -- Currently on Lovenox 70 mg every 12hr -- 2d Echo no evidence of endocarditis, normal ejection fraction 3) Pulmonary Acute hypoxemic respiratory failure Large right pleural effusion status post thoracentesis Possible Rexpansion Pulmonary Edema - Status post right thoracentesis and 2 L fluid removed with IV albumin infusing - Patient developed some degree of reexpansion pulmonary edema - Intubation 04/25 - DuoNeb every 6 hours when necessary - Previous tracheostomy status post decannulation ----04/27 Bumex 1 mg/hour 4) GI Spontaneous bacterial peritonitis secondary to MSSA Cirrhotic liver disease secondary to ETOH abuse and Hepatitis C Protein calorie malnutrition Ascites -- Prior U/S guided paracentesis 04/21/17, fluid was loculated and septated -- Exudative fluid growing MSSA indicated with peritonitis -- Antibiotics per ID,Dr. Mccurdy -- Fluid culture growing MSSA 5) Renal -- 04/25 IV 2 mg Bumex given with not sufficient response -- Palmer catheter in place to monitor I/Os in critically ill patient --04/27 Bumex infusion,l lasix dc'd -- ContinueAlbumin 5% BID 6) Endocrine -- Electrolyte replacement protocol 7) Heme Anemia Coagulopathy Right upper extremity DVT -- Anemia, and coagulopathy most likely secondary to chronic liver disease / ETOH use -- Transfused blood and blood products as needed -- Continue Lovenox 70 mg every 12 8) ID: MSSA bacteremia Spontaneous bacterial peritonitis -- Pertinent cultures: - Blood /: 3/4 bottles MSSA - Ascitic fluid 04/21: MSSA - Pleural fluid- NGTD Antibiotics per ID.Continue Ancef, vanco 9) Prophylaxis: GI - Protonix DVT - SCDs; Lovenox 70 mg q 12 Discussed with FRONT END DEVELOPER DESIGNER at bedside Patient at this time remains critically ill with severe sepsis acute encephalopathy severe hypoxemic respiratory failure. Palliative care consulted. Prognosis guarded This patient remains critically ill with one or more organ systems which are or may become a threat to life. I have spent in excess of 35 minutes discontinuously in the care and management of this patient. This time is exclusive of procedures, and includes, but is not limited to, evaluation of the patient, review of the medical record, discussions with family, consultants, nursing staff, or respiratory therapy, and documentation in the medical record. Physician Risa Olsen MD Apr 27, 2017 10:57
[2017-04-27] MEDS ORDERED: BUMETANIDE INJ 100 ML IV SCH (12:45)
--- NOTE | 2017-04-27 13:39 | HHI.GIFU ---
Subjective Remarks Pt still on ventilator, stable. No GI bleeding. Otherwise fairly stable. Mental status is sedated. Objective Vitals I&O Vital Signs Date Time Temp Pulse Resp B/P Pulse Ox O2 Delivery O2 Flow Rate FiO2 04/27/17 13:00 58 24 127/70 100 04/27/17 12:30 57 24 131/74 100 04/27/17 12:25 99 65 04/27/17 12:00 65 04/27/17 12:00 97.6 58 24 133/73 99 04/27/17 11:30 57 24 134/77 99 04/27/17 11:00 60 23 130/74 99 04/27/17 10:30 61 21 130/75 100 04/27/17 10:00 64 20 132/75 100 04/27/17 09:30 66 22 132/70 100 04/27/17 09:00 67 21 130/71 100 04/27/17 08:30 66 23 129/70 100 04/27/17 08:00 65 04/27/17 08:00 97.7 67 24 129/73 99 04/27/17 07:32 99 65 04/27/17 07:30 64 29 126/80 98 04/27/17 07:00 65 24 127/72 100 04/27/17 06:00 67 04/27/17 04:15 95 70 04/27/17 04:00 69 04/27/17 04:00 98.1 69 23 135/67 94 04/27/17 04:00 65 04/27/17 02:00 73 04/27/17 00:51 96 65 04/27/17 00:00 69 04/27/17 00:00 65 04/27/17 00:00 98.2 69 19 130/66 96 04/26/17 22:00 67 04/26/17 21:08 98 65 04/26/17 21:00 65 04/26/17 20:00 98.5 75 18 139/68 100 04/26/17 20:00 75 04/26/17 20:00 70 04/26/17 18:00 74 04/26/17 16:30 73 19 141/67 97 04/26/17 16:00 70 04/26/17 16:00 73 04/26/17 16:00 97.9 72 19 139/70 97 04/26/17 15:33 94 70 04/26/17 15:30 71 18 135/63 94 04/26/17 15:00 70 20 128/60 96 04/26/17 14:30 70 19 126/59 94 04/26/17 14:00 69 04/26/17 14:00 68 19 127/63 96 I/O 04/26/17 04/26/17 04/26/17 04/27/17 04/27/17 04/27/17 07:00 15:00 23:00 07:00 15:00 23:00 Intake Total 805 ml 1153 ml 566 ml 358 ml Output Total 575 ml 325 ml 250 ml 350 ml Balance 230 ml 828 ml 316 ml 8 ml IV Total 705 ml 766 ml 313 ml 183 ml Tube Feeding 17 ml 93 ml 75 ml Albumin 100 ml 250 ml 100 ml 100 ml Other 120 ml 60 ml Output Urine Total 575 ml 325 ml 250 ml 150 ml Stool Total 200 ml # Bowel Movements 1 1 Laboratory Laboratory Tests Test 04/26/17 04/26/17 04/27/17 04/27/17 14:45 20:19 03:59 05:34 Ammonia 34 28 Potassium Level 3.8 3.9 White Blood Count 6.4 Red Blood Count 2.44 Hemoglobin 6.9 Hematocrit 20.5 Mean Corpuscular Volume 83.7 Mean Corpuscular Hemoglobin 28.2 Mean Corpuscular Hemoglobin 33.7 Concent Red Cell Distribution Width 19.4 Platelet Count 19 Mean Platelet Volume 9.1 Sodium Level 145 Chloride Level 115 Carbon Dioxide Level 22.8 Anion Gap 7 Blood Urea Nitrogen 23 Creatinine 1.31 Estimat Glomerular Filtration 56 Rate Random Glucose 84 Calcium Level 7.6 Phosphorus Level 1.3 Magnesium Level 1.5 Blood Gas Puncture Site RT BRACHIAL Blood Gas Patient Temperature 98.6 Blood Gas HCO3 20 Blood Gas Base Excess -4.6 Blood Gas Oxygen Saturation 92 Arterial Blood pH 7.39 Arterial Blood Partial 33 Pressure CO2 Arterial Blood Partial 73 Pressure O2 Arterial Blood Oxygen Content 10.8 Arterial Blood 2.1 Carboxyhemoglobin Arterial Blood Methemoglobin 0.8 Blood Gas Hemoglobin 8.3 Oxygen Delivery Device VENTILATOR Blood Gas Ventilator Setting AC550/18/+10 Blood Gas Inspired Oxygen 70 Test 04/27/17 05:45 White Blood Count 9.7 Red Blood Count 3.01 Hemoglobin 8.5 Hematocrit 25.2 Mean Corpuscular Volume 83.7 Mean Corpuscular Hemoglobin 28.3 Mean Corpuscular Hemoglobin 33.8 Concent Red Cell Distribution Width 20.0 Platelet Count 83 Mean Platelet Volume 8.6 Neutrophils (%) (Auto) 90.4 Lymphocytes (%) (Auto) 5.2 Monocytes (%) (Auto) 3.0 Eosinophils (%) (Auto) 1.3 Basophils (%) (Auto) 0.1 Neutrophils # (Auto) 8.8 Lymphocytes # (Auto) 0.5 Monocytes # (Auto) 0.3 Eosinophils # (Auto) 0.1 Basophils # (Auto) 0.0 CBC Comment AUTO DIFF Differential Total Cells 100 Counted Neutrophils % (Manual) 79 Band Neutrophils % 16 Lymphocytes % 4 Monocytes % 1 Neutrophils # (Manual) 9.2 Differential Comment FINAL DIFF MANUAL Platelet Estimate LOW Platelet Morphology Comment NORMAL Tear Drop Cells 1+ Ovalocytes 1+ [place] Cells 1+ Keratocytes 1+ Date/Time Procedure Status Source Growth 04/25/17 16:20 Gram Stain - Final Complete Sputum Endotracheal 04/25/17 16:20 Sputum Culture - Final Complete Sputum Endotracheal MODERATE GROWTH NORMAL RESPIRATORY PRAVIN 04/25/17 02:06 Fungal Smear - Final Resulted Fluid Pleural Fluid NO FUNGAL ELEMENTS SEEN. 04/25/17 02:06 Fungal Culture Resulted Fluid Pleural Fluid Pending 04/25/17 02:06 Acid Fast Stain - Final Resulted Fluid Pleural Fluid NO ACID FAST BACILLI SEEN 04/25/17 02:06 Mycobacterial Culture Resulted Fluid Pleural Fluid Pending Physical Exam HEENT: normocephalic; atraumatic; no jaundice. intubated CHEST: coarse CARDIAC: RRR ABDOMEN: semifirm, distended, umbilical hernia, hernia LUQ, nontender; bowel sounds are present in all four quadrants. EXTREMITIES: No clubbing, cyanosis, or edema. SKIN: ecchymotic right upper extremity NET APPLICATION SUPPORT SPECIALIST: intubated Assessment and Plan Plan ASSESSMENT - ascites/cirrhosis - small & nodular appearing liver on CT. LFTs WNL currently. Pt admits liver problem but cannot explain further. s/p paracentesis. ammonia 18 SAAG 0.7, MELD 11, AFP 1.7 cytology pending , cx revealed staphylococcus aureus fluid analysis, wbc [id number], RBC 411, rest wnl. Hep C quant 25,000, genotype 3a CT 04-20-17--> mod free fluid abd and pelvis with poss associated peritoneal thickening, pleural effusions, umbilical hernia, hernia superior and left of umbilicus containing portion of transverse colon, changes r/t chronic liver dz including recanalized paraumbilical vein, cholelithiasis - SBP- cx revealed staphylococcus aureus, abx Cefazolin, vanco - anemia - 12.4 on admission. today hgb 10.4. No active bleeding. normocytic. hx UGIB in 2014 2/2 portal hypertensive gastropathy. - leukocytosis - 15.2 on admission now WNL, - Hypoalbuminemia- albumin BID - Hx of hep-C- quant 22,500 - Right DVT on US, per attending - PNA, AF RVR per primary, cardiology following, ID following PLAN - can f/u as outpt re hep c tx - lactulose - Xifaxan - albumin - Await cytology - Diuretics if BP allows Carl Byers MD Apr 27, 2017 13:39
--- NOTE | 2017-04-27 15:20 | HHI.HCPN ---
Reason for visit a. To assist with evaluation and management of symptoms including: confusion , pain, decreased appetite, dyspnea b. To assist medical decision maker(s) with: better understanding of current medical conditions; weighing benefits/burdens of medical treatment options; making medical treatment decisions. . (Adina Gonzalez) Subjective/Interval History Mr. Forrest is a 56 year old male patient with cirrhosis, osteoarthritis, atrial fibrillation, hypertension, GERD, sleep apnea, central pontine myelinolysis, EtOH abuse and ascites requiring paracentesis admitted to [facility] ED on 04/20/2017 for management of sepsis, failure to thrive and dehydration. Status post intubation on 04/26/17 secondary to hypoxemic respiratory failure. Ongoing high ventilatory requirements; FiO2 65%, PEEP of 10. Patient in sinus rhythm; amiodarone and Cardizem infusions were discontinued on 04/26/17. Decreased urine output; Bumex infusing at at 1 mg per hour. BUN: 23, creatinine 1.31, GFR 56. Blood cultures and peritoneal fluid cultures with MSSA. Follow-up cultures on negative to date. Infectious disease is following; patient remains on Ancef. Gastroenterology following; plan for paracentesis today. Patient remains on lactulose and Xifaxan. Started on albumin twice a day for hypoalbuminemia. Peritoneal fluid cytology on 04/21/17 results were negative for malignant cells; pleural fluid status post thoracentesis on 04/25/17 negative for malignant cells as well. (Adina Gonzalez) Advance Directives Advance Directive Specifics Documented care wishes: No documented care wishes have been completed . (Adina Gonzalez) Objective Vital Signs Date Time Temp Pulse Resp B/P Pulse Ox O2 Delivery O2 Flow Rate FiO2 04/27/17 14:00 57 04/27/17 13:00 58 24 127/70 100 04/27/17 12:30 57 24 131/74 100 04/27/17 12:25 99 65 04/27/17 12:00 65 04/27/17 12:00 97.6 58 24 133/73 99 04/27/17 12:00 58 04/27/17 11:30 57 24 134/77 99 04/27/17 11:00 60 23 130/74 99 04/27/17 10:30 61 21 130/75 100 04/27/17 10:00 64 20 132/75 100 04/27/17 10:00 64 04/27/17 09:30 66 22 132/70 100 04/27/17 09:00 67 21 130/71 100 04/27/17 08:30 66 23 129/70 100 04/27/17 08:00 67 04/27/17 08:00 65 04/27/17 08:00 97.7 67 24 129/73 99 04/27/17 07:32 99 65 04/27/17 07:30 64 29 126/80 98 04/27/17 07:00 65 24 127/72 100 04/27/17 06:00 67 04/27/17 04:15 95 70 04/27/17 04:00 69 04/27/17 04:00 98.1 69 23 135/67 94 04/27/17 04:00 65 04/27/17 02:00 73 04/27/17 00:51 96 65 04/27/17 00:00 69 04/27/17 00:00 65 04/27/17 00:00 98.2 69 19 130/66 96 04/26/17 22:00 67 04/26/17 21:08 98 65 04/26/17 21:00 65 04/26/17 20:00 98.5 75 18 139/68 100 04/26/17 20:00 75 04/26/17 20:00 70 04/26/17 18:00 74 04/26/17 16:30 73 19 141/67 97 04/26/17 16:00 70 04/26/17 16:00 73 04/26/17 16:00 97.9 72 19 139/70 97 04/26/17 15:33 94 70 04/26/17 15:30 71 18 135/63 94 04/26/17 15:00 70 20 128/60 96 Intake & Output 04/27/17 04/27/17 07:00 19:00 Intake Total 651 ml Output Total 600 ml Balance 51 ml IV Total 323 ml Tube Feeding 168 ml Albumin 100 ml Other 60 ml Output Urine Total 400 ml Stool Total 200 ml Physical Exam CONSTITUTIONAL/GENERAL: This is a frail, cachectic male patient who appears older than his stated age. TUBES/LINES/DRAINS: PIV x 3, nasal cannula, urinary catheter, soft restraints SKIN: Ecchymoses on upper extremities.. Skin temperature appropriate. Not diaphoretic. HEAD: Atraumatic. Normocephalic. EYES: Pupils equal and round and reactive. No injection or drainage. Fundi not examined. ENT: Nose without bleeding or purulent drainage. NECK: Trachea midline. CARDIOVASCULAR: Sinus rhythm.no JVD Peripheral pulses symmetric. RESPIRATORY/CHEST: Intubated on mechanical vent with high ventilatory requirements; FiO2 65%, PEEP 10 GASTROINTESTINAL: Abdomen distended, nontender. Large umbilical hernia. Land for paracentesis later today GENITOURINARY: Without palpable bladder distension. Palmer catheter in place. MUSCULOSKELETAL: Extremities without clubbing, cyanosis. Bilateral upper extremities edematous LYMPHATICS: No palpable cervical or supraclavicular adenopathy. NEUROLOGICAL: Sedated on Diprivan; does not respond to noxious stimuli PSYCHIATRIC: Unable to assess given patient's current clinical condition . . (Adina Gonzalez) Diagnostic Tests Laboratory Laboratory Tests Test 04/25/17 04/25/17 04/25/17 04/25/17 00:40 02:06 05:51 07:28 Blood Gas Puncture Site RT RADIAL LT RADIAL Blood Gas Patient Temperature 98.6 98.6 Blood Gas HCO3 19 mmol/L 21 mmol/L (22-26) (22-26) Blood Gas Base Excess -6.1 mmol/L -3.4 mmol/L (-2-2) (-2-2) Blood Gas Oxygen Saturation 87 % (90-100) 95 % (90-100) Arterial Blood pH 7.29 7.37 (7.380-7.420) (7.380-7.420) Arterial Blood Partial 42 mmHg (38-42) 37 mmHg (38-42) Pressure CO2 Arterial Blood Partial 66 mmHg 94 mmHg Pressure O2 (61-120) (61-120) Arterial Blood Oxygen Content 12.0 Vol % 12.9 Vol % (12.0-20.0) (12.0-20.0) Arterial Blood 1.6 % (0-4) 1.8 % (0-4) Carboxyhemoglobin Arterial Blood Methemoglobin 1.0 % (0-2) 0.8 % (0-2) Blood Gas Hemoglobin 9.8 G/DL 9.5 G/DL (12.0-16.0) (12.0-16.0) Oxygen Delivery Device Non-Rebreathing BiPAP Mask Blood Gas Liter Flow 15 L/M Blood Gas Inspired Oxygen 100 % 100 % Pleural Fluid pH 8.5 Pleural Fluid WBC 286 /MM3 (0-10) Pleural Fluid RBC 1496 /MM3 (0-0) Pleural Fluid Neutrophils 38 % Pleural Fluid Lymphocytes 61 % Pleural Fluid Monocytes 1 % Pleural Fluid Total Protein 2.7 GM/DL Pleural Fluid LDH 145 U/L Pleural Fluid Glucose 143 MG/DL Body Fluid Amylase Source PLEURAL FLUID (()) Body Fluid Amylase 20 U/L (()) White Blood Count 10.1 TH/MM3 (4.0-11.0) Red Blood Count 3.78 MIL/MM3 (4.50-5.90) Hemoglobin 10.4 GM/DL (13.0-17.0) Hematocrit 32.4 % (39.0-51.0) Mean Corpuscular Volume 85.6 FL (80.0-100.0) Mean Corpuscular Hemoglobin 27.5 PG (27.0-34.0) Mean Corpuscular Hemoglobin 32.1 % Concent (32.0-36.0) Red Cell Distribution Width 18.9 % (11.6-17.2) Platelet Count 136 TH/MM3 (150-450) Mean Platelet Volume 7.6 FL (7.0-11.0) Neutrophils (%) (Auto) % (16.0-70.0) Lymphocytes (%) (Auto) % (9.0-44.0) Monocytes (%) (Auto) % (0.0-8.0) Eosinophils (%) (Auto) % (0.0-4.0) Basophils (%) (Auto) % (0.0-2.0) Neutrophils # (Auto) TH/MM3 (1.8-7.7) Lymphocytes # (Auto) TH/MM3 (1.0-4.8) Monocytes # (Auto) TH/MM3 (0-0.9) Eosinophils # (Auto) TH/MM3 (0-0.4) Basophils # (Auto) TH/MM3 (0-0.2) CBC Comment AUTO DIFF Differential Total Cells 100 Counted Neutrophils % (Manual) 64 % (16-70) Band Neutrophils % 34 % (0-6) Lymphocytes % 1 % (9-44) Eosinophils % 1 % (0-4) Neutrophils # (Manual) 9.9 TH/MM3 (1.8-7.7) Differential Comment FINAL DIFF MANUAL Platelet Estimate LOW (NORMAL) Platelet Morphology Comment NORMAL (NORMAL) Ovalocytes 1+ (NORMAL) Sodium Level 143 MEQ/L (136-145) Potassium Level 3.4 MEQ/L (3.5-5.1) Chloride Level 111 MEQ/L (98-107) Carbon Dioxide Level 22.5 MEQ/L (21.0-32.0) Anion Gap 10 MEQ/L (5-15) Blood Urea Nitrogen 22 MG/DL (7-18) Creatinine 0.97 MG/DL (0.60-1.30) Estimat Glomerular Filtration 79 ML/MIN (>89) Rate Random Glucose 109 MG/DL (74-106) Calcium Level 8.0 MG/DL (8.5-10.1) Blood Gas Ventilator Setting IPAP14/EPAP6 Test 04/25/17 04/26/17 04/26/17 04/26/17 08:25 05:08 06:00 10:48 Blood Gas Puncture Site LT RADIAL RT RADIAL LT RADIAL Blood Gas Patient Temperature 98.6 98.6 98.6 Blood Gas HCO3 22 mmol/L 21 mmol/L 21 mmol/L (22-26) (22-26) (22-26) Blood Gas Base Excess -3.6 mmol/L -3.4 mmol/L -3.7 mmol/L (-2-2) (-2-2) (-2-2) Blood Gas Oxygen Saturation 95 % (90-100) 89 % (90-100) 92 % (90-100) Arterial Blood pH 7.32 7.39 7.39 (7.380-7.420) (7.380-7.420) (7.380-7.420) Arterial Blood Partial 43 mmHg (38-42) 35 mmHg (38-42) 35 mmHg (38-42) Pressure CO2 Arterial Blood Partial 97 mmHg 63 mmHg 70 mmHg Pressure O2 (61-120) (61-120) (61-120) Arterial Blood Oxygen Content 12.7 Vol % 10.8 Vol % 11.0 Vol % (12.0-20.0) (12.0-20.0) (12.0-20.0) Arterial Blood 1.5 % (0-4) 1.8 % (0-4) 1.9 % (0-4) Carboxyhemoglobin Arterial Blood Methemoglobin 1.0 % (0-2) 0.8 % (0-2) 0.9 % (0-2) Blood Gas Hemoglobin 9.4 G/DL 8.6 G/DL 8.5 G/DL (12.0-16.0) (12.0-16.0) (12.0-16.0) Oxygen Delivery Device VENTILATOR VENTILATOR VENTILATOR Blood Gas Ventilator Setting A/C AC550/18/+8 A/C 16/550/PEEP8 18/550/PEEP10 Blood Gas Inspired Oxygen 100 % 80 % 70 % White Blood Count 12.5 TH/MM3 (4.0-11.0) Red Blood Count 3.25 MIL/MM3 (4.50-5.90) Hemoglobin 8.9 GM/DL (13.0-17.0) Hematocrit 27.6 % (39.0-51.0) Mean Corpuscular Volume 84.8 FL (80.0-100.0) Mean Corpuscular Hemoglobin 27.4 PG (27.0-34.0) Mean Corpuscular Hemoglobin 32.3 % Concent (32.0-36.0) Red Cell Distribution Width 19.3 % (11.6-17.2) Platelet Count 115 TH/MM3 (150-450) Mean Platelet Volume 7.7 FL (7.0-11.0) Neutrophils (%) (Auto) 92.6 % (16.0-70.0) Lymphocytes (%) (Auto) 3.8 % (9.0-44.0) Monocytes (%) (Auto) 2.3 % (0.0-8.0) Eosinophils (%) (Auto) 1.1 % (0.0-4.0) Basophils (%) (Auto) 0.2 % (0.0-2.0) Neutrophils # (Auto) 11.6 TH/MM3 (1.8-7.7) Lymphocytes # (Auto) 0.5 TH/MM3 (1.0-4.8) Monocytes # (Auto) 0.3 TH/MM3 (0-0.9) Eosinophils # (Auto) 0.1 TH/MM3 (0-0.4) Basophils # (Auto) 0.0 TH/MM3 (0-0.2) CBC Comment DIFF FINAL Differential Comment Sodium Level 145 MEQ/L (136-145) Potassium Level 3.2 MEQ/L (3.5-5.1) Chloride Level 112 MEQ/L (98-107) Carbon Dioxide Level 24.0 MEQ/L (21.0-32.0) Anion Gap 9 MEQ/L (5-15) Blood Urea Nitrogen 23 MG/DL (7-18) Creatinine 1.18 MG/DL (0.60-1.30) Estimat Glomerular Filtration 63 ML/MIN (>89) Rate Random Glucose 73 MG/DL (74-106) Calcium Level 8.0 MG/DL (8.5-10.1) Phosphorus Level 1.4 MG/DL (2.5-4.9) Magnesium Level 1.6 MG/DL (1.5-2.5) Total Bilirubin 0.7 MG/DL (0.2-1.0) Aspartate Amino Transf 18 U/L (15-37) (AST/SGOT) Alanine Aminotransferase 6 U/L (12-78) (ALT/SGPT) Alkaline Phosphatase 60 U/L (45-117) Total Protein 6.0 GM/DL (6.4-8.2) Albumin 3.0 GM/DL (3.4-5.0) Test 04/26/17 04/26/17 04/27/17 04/27/17 14:45 20:19 03:59 05:34 Ammonia 34 MCMOL/L 28 MCMOL/L (11-32) (11-32) Potassium Level 3.8 MEQ/L 3.9 MEQ/L (3.5-5.1) (3.5-5.1) White Blood Count 6.4 TH/MM3 (4.0-11.0) Red Blood Count 2.44 MIL/MM3 (4.50-5.90) Hemoglobin 6.9 GM/DL (13.0-17.0) Hematocrit 20.5 % (39.0-51.0) Mean Corpuscular Volume 83.7 FL (80.0-100.0) Mean Corpuscular Hemoglobin 28.2 PG (27.0-34.0) Mean Corpuscular Hemoglobin 33.7 % Concent (32.0-36.0) Red Cell Distribution Width 19.4 % (11.6-17.2) Platelet Count 19 TH/MM3 (150-450) Mean Platelet Volume 9.1 FL (7.0-11.0) Sodium Level 145 MEQ/L (136-145) Chloride Level 115 MEQ/L (98-107) Carbon Dioxide Level 22.8 MEQ/L (21.0-32.0) Anion Gap 7 MEQ/L (5-15) Blood Urea Nitrogen 23 MG/DL (7-18) Creatinine 1.31 MG/DL (0.60-1.30) Estimat Glomerular Filtration 56 ML/MIN (>89) Rate Random Glucose 84 MG/DL (74-106) Calcium Level 7.6 MG/DL (8.5-10.1) Phosphorus Level 1.3 MG/DL (2.5-4.9) Magnesium Level 1.5 MG/DL (1.5-2.5) Blood Gas Puncture Site RT BRACHIAL Blood Gas Patient Temperature 98.6 Blood Gas HCO3 20 mmol/L (22-26) Blood Gas Base Excess -4.6 mmol/L (-2-2) Blood Gas Oxygen Saturation 92 % (90-100) Arterial Blood pH 7.39 (7.380-7.420) Arterial Blood Partial 33 mmHg (38-42) Pressure CO2 Arterial Blood Partial 73 mmHg Pressure O2 (61-120) Arterial Blood Oxygen Content 10.8 Vol % (12.0-20.0) Arterial Blood 2.1 % (0-4) Carboxyhemoglobin Arterial Blood Methemoglobin 0.8 % (0-2) Blood Gas Hemoglobin 8.3 G/DL (12.0-16.0) Oxygen Delivery Device VENTILATOR Blood Gas Ventilator Setting AC550/18/+10 Blood Gas Inspired Oxygen 70 % Test 04/27/17 05:45 White Blood Count 9.7 TH/MM3 (4.0-11.0) Red Blood Count 3.01 MIL/MM3 (4.50-5.90) Hemoglobin 8.5 GM/DL (13.0-17.0) Hematocrit 25.2 % (39.0-51.0) Mean Corpuscular Volume 83.7 FL (80.0-100.0) Mean Corpuscular Hemoglobin 28.3 PG (27.0-34.0) Mean Corpuscular Hemoglobin 33.8 % Concent (32.0-36.0) Red Cell Distribution Width 20.0 % (11.6-17.2) Platelet Count 83 TH/MM3 (150-450) Mean Platelet Volume 8.6 FL (7.0-11.0) Neutrophils (%) (Auto) 90.4 % (16.0-70.0) Lymphocytes (%) (Auto) 5.2 % (9.0-44.0) Monocytes (%) (Auto) 3.0 % (0.0-8.0) Eosinophils (%) (Auto) 1.3 % (0.0-4.0) Basophils (%) (Auto) 0.1 % (0.0-2.0) Neutrophils # (Auto) 8.8 TH/MM3 (1.8-7.7) Lymphocytes # (Auto) 0.5 TH/MM3 (1.0-4.8) Monocytes # (Auto) 0.3 TH/MM3 (0-0.9) Eosinophils # (Auto) 0.1 TH/MM3 (0-0.4) Basophils # (Auto) 0.0 TH/MM3 (0-0.2) CBC Comment AUTO DIFF Differential Total Cells 100 Counted Neutrophils % (Manual) 79 % (16-70) Band Neutrophils % 16 % (0-6) Lymphocytes % 4 % (9-44) Monocytes % 1 % (0-8) Neutrophils # (Manual) 9.2 TH/MM3 (1.8-7.7) Differential Comment FINAL DIFF MANUAL Platelet Estimate LOW (NORMAL) Platelet Morphology Comment NORMAL (NORMAL) Tear Drop Cells 1+ (NORMAL) Ovalocytes 1+ (NORMAL) [place] Cells 1+ (NORMAL) Keratocytes 1+ (NORMAL) . (Adina Gonzalez) Result Diagram: 04/27/17 0545 04/27/17 0359 Microbiology Microbiology Date/Time Procedure Status Source Growth 04/25/17 02:06 Gram Stain - Final Resulted Fluid Pleural Fluid 04/25/17 02:06 Body Fluid Culture - Preliminary Resulted Fluid Pleural Fluid NO GROWTH IN 48 HOURS. 04/25/17 02:06 Acid Fast Stain - Final Resulted Fluid Pleural Fluid NO ACID FAST BACILLI SEEN 04/25/17 02:06 Mycobacterial Culture Resulted Fluid Pleural Fluid Pending 04/25/17 02:06 Fungal Smear - Final Resulted Fluid Pleural Fluid NO FUNGAL ELEMENTS SEEN. 04/25/17 02:06 Fungal Culture Resulted Fluid Pleural Fluid Pending 04/25/17 16:20 Gram Stain - Final Complete Sputum Endotracheal 04/25/17 16:20 Sputum Culture - Final Complete Sputum Endotracheal MODERATE GROWTH NORMAL RESPIRATORY PRAVIN Imaging Last 72 hours Impressions Chest X-Ray 04/27/17 0600 Signed Impressions: Service Date/Time: Thursday, April 27, 2017 04:29 - CONCLUSION: Overall stable appearance of the chest. Watson Bermeo MD Chest X-Ray 04/26/17 0600 Signed Impressions: Service Date/Time: Wednesday, April 26, 2017 03:40 - CONCLUSION: No significant change has occurred. Watson Bermeo MD Chest X-Ray 04/25/17 0000 Signed Impressions: Service Date/Time: Tuesday, April 25, 2017 08:08 - CONCLUSION: ET right main bronchus. Nasogastric tube is not across the GE junction. Rico Segura MD FACR Chest X-Ray 04/25/17 0000 Signed Impressions: Service Date/Time: Tuesday, April 25, 2017 06:04 - CONCLUSION: No significant change has occurred. Watson Bermeo MD Chest X-Ray 04/25/17 0000 Signed Impressions: Service Date/Time: Tuesday, April 25, 2017 02:29 - CONCLUSION: Worsening appearance of the left lung with improved aeration on the right. Watson Bermeo MD . Procedures 04/21/17: Ultrasound guided paracentesis . (Adina Gonzalez) Assessment and Plan Disease Oriented Problem List: (1) Diarrhea (2) HTN (hypertension) (3) Atrial fibrillation with RVR (4) Encephalopathy (5) Sepsis (6) Ascites (7) Bacterial peritonitis (8) Pneumonia (9) Pleural effusion (10) Alcohol abuse (11) Wernicke-Korsakoff syndrome (alcoholic) Symptom Scale: (1) Decrease in appetite (2) Pain (3) Dyspnea (4) Confusion Pertinent Non-Medical Issues Psychosocial: Patient is originally from [place], [place]. His parents are ; he has/had 3 siblings (Anay, Josefa, Tigre). He moved to [place] in 2012. Patient is . Patient has 1 son, Rickey malone, who is the healthcare proxy decision-make Spiritual: Raised congregation Legal: Per [place] statutes, in the absence of written advanced directives healthcare proxy decision-making falls to the patient's son. Ethical issues impacting care: No known ethical issues impacting care. . Important Contacts Rickey Forrest III, son: [phone] (Son DOES WISH to serve has health care proxy). Anay Blount, sister: ([place]) [phone] Josefa Driver, sister: [phone] Tigre Forrest, sister: [phone] . Prognosis Patient is a 57 year old male patient with a history of liver disease with ascites requiring paracentesis secondary to EtOH abuse. Currently admitted with sepsis/bacterial peritonitis/pneumonia with pleural effusions, encephalopathy and atrial fibrillation with RVR. Patient is malnourished with an albumin of 1.3 Patient is a poor historian and no family is present, therefore patient's functional and cognitive trajectory is unknown. Current prognosis is guarded versus poor. Additional information pending further conversations with patient and family. . . Code Status: Full Code Plan * FULL CODE * Decision-making: Per [place] statutes, in the absence of written advanced directives healthcare proxy decision-making falls to the patient's son Rickey malone. Risa Pena is NOT the patient's and should not be included in any medical decision making. HCP: Rickey Forrest III, son: [phone] * Goals: Aggressive goals * Spoke with patient's son; update provided on patient's clinical condition and his overall poor prognosis. Discussed the process of cardiopulmonary resuscitation (compression, ACLS medications, cardioversion and intubation/ mechanical ventilation0. Patient's son is not comfortable making changes in medical treatment goals without discussing with the patient's siblings first. Palliative care will attempt to contact patient's sister (Josefa) to facilitate further conversations with patient's son (HCP) and the other family members. * Symptom management-decreased appetite: Albumin 1.3. BMI 20.5. Dietary following. * Symptom managementdyspnea: Status post intubation on 04/26/17 secondary to hypoxemic respiratory failure. Patient requiring high oxygen concentration and ventilatory support, PEEP of 10. Follow-up chest x-ray on 04/26/17 was stable. * Palliative care will continue to follow this patient throughout his hospitalization to establish trust, assist with symptom management and clarification of medical treatment goals. . (Adina Gonzalez) Attestation To help prompt me to consider important information that might be impacting today's encounter and assessment, information from prior notes written by myself or my colleagues may have been "brought forward" into today's note. My signature on this note, however, is an attestation that I personally performed the exam, history, and/or decision-making noted today, and, unless otherwise indicated, the interactions with patient, family, and staff as well as the review of records all occurred today. I also attest that the listed assessment and stated plan reflect my best clinical judgment today based on the combination of historical information, prior notes, and today's exam/ interactions. When time spent is documented, it refers only to time spent today by the signer, or if indicated, combined time spent today by collaborating physician/nurse practitioner. . (Adina Gonzalez) Collaborating MD Comments Chart reviewed. Case discussed with palliative care MASTER CONTROL SUPERVISOR. Above note reviewed and I concur. . (Charles Ching MD) Adina Gonzalez Apr 27, 2017 15:20 Charles Ching MD Jun 26, 2017 11:21
[2017-04-27 18:00] LABS: INTERNATIONAL NORMALIZED RATIO 1.3 RATIO; PROTHROMBIN TIME - PATIENT 14.5 SEC (9.8-11.6)
[2017-04-28] VITALS (45 sets, daily range): BP systolic 111–137; BP diastolic 60–77; PULSE 59–81; RESP 17–39; TEMP 97.3–98.3; O2SAT 90–100
[2017-04-28] MEDS: RESP: ALBUTEROL 2.5 MG/IPRATROPIUM 0.5 MG NEB (SCH) NEB ×4 (03:48→20:49)
[2017-04-28] MEDS: PROPOFOL 1000 MG/100 ML INJ 100 ML IV SCH ×4 (04:49→22:16)
[2017-04-28] MEDS: ALBUMIN HUMAN 25% 25 GM/100 ML BAGP IV SCH (04:50)
[2017-04-28] MEDS: ceFAZolin 2 GM PREMIX 50 ML IV SCH ×3 (04:50→22:38)
[2017-04-28 06:50] LABS: AUTOMATED NEUTROPHIL # 7.8 TH/MM3 (1.8-7.7); BASOPHIL % 0.5 % (0.0-2.0); EOSINOPHIL # 0.2 TH/MM3 (0-0.4); EOSINOPHIL % 1.9 % (0.0-4.0); HEMATOCRIT 25.7 % (39.0-51.0); LYMPH % 6.5 % (9.0-44.0); LYMPHOCYTE # 0.6 TH/MM3 (1.0-4.8); MEAN CELL VOLUME 83.1 FL (80.0-100.0); MEAN CORPUSCULAR HEMOGLOBIN 27.5 PG (27.0-34.0); MEAN CORPUSCULAR HGB CONC 33.1 % (32.0-36.0); MONO % 3.5 % (0.0-8.0); NEUT % 87.6 % (16.0-70.0); PLATELET COUNT 104 TH/MM3 (150-450); RED BLOOD COUNT 3.09 MIL/MM3 (4.50-5.90); RED CELL DISTRIBUTION WIDTH 18.9 % (11.6-17.2); WHITE BLOOD COUNT 8.9 TH/MM3 (4.0-11.0)
[2017-04-28 06:54] LABS: INTERNATIONAL NORMALIZED RATIO 1.3 RATIO; PROTHROMBIN TIME - PATIENT 14.8 SEC (9.8-11.6)
[2017-04-28 06:58] LABS: HEMO FLAGS AUTO DIFF
[2017-04-28 07:29] LABS: ANION GAP 9 MEQ/L (5-15); AST (GOT) 20 U/L (15-37); BICARBONATE 22.9 MEQ/L (21.0-32.0); BLOOD UREA NITROGEN 26 MG/DL (7-18); CHLORIDE 110 MEQ/L (98-107); GLOMERULAR FILTRATION RATE 44 ML/MIN (>89); MAGNESIUM 1.6 MG/DL (1.5-2.5); POTASSIUM 3.2 MEQ/L (3.5-5.1); SODIUM (NA) 142 MEQ/L (136-145)
[2017-04-28 07:30] LABS: ALT (GPT) LESS THAN 6 U/L (12-78)
[2017-04-28 07:33] LABS: ALKALINE PHOSPHATASE 66 U/L (45-117); FREE T4 0.99 NG/DL (0.76-1.46); TOTAL BILIRUBIN ADULT 0.5 MG/DL (0.2-1.0)
[2017-04-28 07:51] LABS: BANDS 3 % (0-6); BASOPHILS 1 % (0-2); EOSINOPHILS 1 % (0-4); METAMYELOCYTES 2 % (0-1); NEUTROPHIL # MANUAL DIFF 8.5 TH/MM3 (1.8-7.7); PLATELET ESTIMATE SMEAR LOW (NORMAL); PLATELET MORPHOLOGY NORMAL (NORMAL); POLYS (SEG NEUTROPHILS) 90 % (16-70); SCAN/DIFF FINAL DIFF MANUAL; WBC DIFF SAMPLE 100
[2017-04-28 07:52] LABS: OVALOCYTES 2+ (NORMAL)
[2017-04-28] MEDS: LACTULOSE SYRUP 20 GM/30 ML CUP PO SCH (07:54)
[2017-04-28] MEDS: METOPROLOL TARTRATE 25 MG TAB PO SCH ×2 (07:54→21:00)
[2017-04-28] MEDS: RIFAXIMIN 550 MG TAB PO SCH ×2 (07:54→22:38)
[2017-04-28] MEDS: POTASSIUM PHOSPHATE MONOBASIC 500 MG TAB PO PRN ×2 (07:55→18:26)
[2017-04-28] MEDS: POTASSIUM CHLOR 20 MEQ PREMIX 100 ML IV PRN ×4 (07:55→17:05)
[2017-04-28] MEDS: ENOXAPARIN SODIUM 80 MG/0.8 ML SYRINGE SQ SCH ×2 (07:55→22:40)
[2017-04-28] MEDS: CHLORHEXIDINE 0.12% (ORAL KIT) 15 ML CUP MT SCH ×2 (08:00→20:00)
[2017-04-28] MEDS: ALBUMIN HUMAN 5% 12.5 GM/250 ML BOTTLE IV SCH ×2 (10:04→22:36)
--- NOTE | 2017-04-28 11:18 | PD.PROCEDR ---
Procedure Note Procedure Date of procedure: 04/28/2017 Procedure: Abdominal paracentesis, ultrasound-guided Indication: SBP Operators: Jignesh Guido M.D. Details of procedure: Informed consent was obtained. The patient was laid supine. Ascites was localized with ultrasound device. The left lower quadrant was cleaned with ChloraPrep twice. Regional sterile drapes were applied. Other barrier precautions included sterile gloves and face mask. 1% lidocaine was used for local anesthesia. A skin incision was made with a scalpel blade. Arrow-Choi Pleura-Seal Thoracentesis Kit was used. An 8 Fr Catheter over 18 gauge introducer needle was inserted into the peritoneal space with return of cloudy yellow fluid. The needle was removed. Approximately 300 mL of fluid was removed and sent for analysis and cultures. The catheter was removed and hemostasis was achieved by direct pressure. The site was cleansed with an alcohol swab and a Band-Aid was applied. Estimated blood loss: Minimal Complications: None immediately apparent. STAT KUB x-ray ordered. Jignesh Guido MD Apr 28, 2017 11:18
[2017-04-28] MEDS ORDERED: METOLAZONE 5 MG TAB PO ONE (11:30)
--- NOTE | 2017-04-28 11:34 | HHI.CCPN ---
Subjective Remarks/Hospital Course History of Present Illness Mr. Forrest is a 56 year old male patient with cirrhosis secondary to hepatitis C and alcohol dependence, atrial fibrillation, hypertension, GERD, sleep apnea, history of central pontine myelinolysis,ascites requiring paracentesis who admitted to [facility] with on 04/20/2017 for evaluation of decreased oral intake, probable sepsis and ascites. An EKG on admission showed atrial fibrillation with RVR. His initial WBC count was 15K. Infectious disease was consulted and patient was placed on broad-spectrum antibiotic. Recently underwent paracentesis by IR on 04/21/17 with the fluid was described as loculated and septated. Fluid culture grew MSSA. 3 out of 4 blood cultures on 04/20/17 growing MSSA. For Atrial fibrillation with RVR patient was placed on Cardizem drip. Paracentesis on 04/21/2017 650 ccfluid removed. Peritoneal WBC - 98717; peritoneal RBC - 411. Patient had been receiving Ancef and vancomycin per ID recommendation Critical care medicine was consulted today a.m. as patient was increasingly short of breath and dyspneic and hypoxemic. Patient was placed on BiPAP 15/7 at 80% oxygen. I immediately evaluated the patient he appeared to be in moderate to severe distress. Bedside ultrasound showed large right-sided pleural effusion. I gave him 25 g of albumin and performed thoracentesis with 2 L of fluid removal. Chest x-ray postprocedure showed significant clearing of the right lung field but increased edema involving the left lung field. It is possible that patient has developed reexpansion pulmonary edema, I gave him 2 mg of IV bumex. Repeat Chest x-ray continues to show bilateral pulmonary edema , I have signed out this case to Dr. Bob who will most likely intubated the patient. Subjective subjective: 04/26: The patient required intubation, due to hypoxemic respiratory failure last a.m.. Patient still requires has high oxygen and ventilatory requirements,PEEP increased to 10. Aggressive diuresis continues. The patient converted to normal sinus rhythm yesterday afternoon amiodarone has been discontinued Cardizem has been discontinued. The patient continues on metoprolol twice a day. 04/27: Decreased urinary output overnight. Bumex 1 mg/hour instituted. Plan for repeat paracentesis procedure. The patient remains normal sinus rhythm. Subjective 04/28: Afebrile. Paracentesis today only 300 cc. Possibly slightly loculated. Weaning back loop diuretic in light of worsening renal function. Plan for right-sided pigtail catheter for recurrent pleural effusion. In attempt to wean off ventilator. Tolerating tube feeding Objective Vital Signs Date Time Temp Pulse Resp B/P Pulse Ox O2 Delivery O2 Flow Rate FiO2 04/28/17 08:15 92 40 04/28/17 06:00 72 04/28/17 04:00 98.3 22 124/68 04/24/17 21:30 Partial Rebreather 04/24/17 17:32 6.00 Intake and Output 04/27/17 04/27/17 04/27/17 07:59 15:59 23:59 Intake Total 358 ml 700 ml 392 ml Output Total 350 ml 825 ml 450 ml Balance 8 ml -125 ml -58 ml Result Diagram: 04/28/17 0539 04/28/17 0539 Other Results Microbiology Date/Time Procedure Status Source Growth 04/25/17 16:20 Gram Stain - Final Complete Sputum Endotracheal 04/25/17 16:20 Sputum Culture - Final Complete Sputum Endotracheal MODERATE GROWTH NORMAL RESPIRATORY PRAVIN 04/25/17 02:06 Fungal Smear - Final Resulted Fluid Pleural Fluid NO FUNGAL ELEMENTS SEEN. 04/25/17 02:06 Fungal Culture Resulted Fluid Pleural Fluid Pending 04/25/17 02:06 Acid Fast Stain - Final Resulted Fluid Pleural Fluid NO ACID FAST BACILLI SEEN 04/25/17 02:06 Mycobacterial Culture Resulted Fluid Pleural Fluid Pending Imaging Last Impressions Chest X-Ray 04/27/17 0600 Signed Impressions: Service Date/Time: Thursday, April 27, 2017 04:29 - CONCLUSION: Overall stable appearance of the chest. Watson Bermeo MD Upper Extremity Ultrasound 04/23/17 0000 Signed Impressions: Service Date/Time: Sunday, April 23, 2017 10:50 - CONCLUSION: DVT in the right upper extremity seen in the right basilic vein. There is also superficial thrombus in the right cephalic vein. Mushtaq Brown MD Cyst Biopsy Asp-Paracentesis US 04/21/17 0000 Signed Impressions: Service Date/Time: April 11:07 - CONCLUSION: Uncomplicated ultrasound guided paracentesis. Please note that the fluid throughout the abdomen is extremely complex with septations. This can be seen when the fluid has become infected or is complicated by hemorrhage or malignancy. Mushtaq Alexis MD Abdomen/Pelvis CT 04/20/17 0000 Signed Impressions: Service Date/Time: Thursday, April 20, 2017 13:56 - CONCLUSION: 1. Moderate volume free fluid in the abdomen and pelvis with possible associated peritoneal thickening. Thickening of the peritoneal lining can be seen with infection. 2. Large right and moderate size left pleural effusion with associated compressive atelectasis. 3. There is an umbilical hernia containing fluid and fat and fluid containing hernia superior and to the left of the umbilicus. This hernia also contains a portion of the transverse colon. 4. Nonacute findings include changes related to chronic liver disease including recanalized paraumbilical vein and bilateral gynecomastia. 5. Other nonacute findings include cholelithiasis and moderate atherosclerotic disease. Mushtaq Alexis MD Objective Remarks GENERAL: 57-year-old critically ill male, currently intubated and sedated SKIN: Warm/dry. No rash/will perfuse. Ecchymosis bilateral upper and lower extremities HEAD: Atraumatic. Normocephalic. EYES: Pupils equal and round about 2 mm bilaterally and reactive. No scleral icterus. ENT: No nasal bleeding or discharge. Oropharynx without erythema NECK: Trachea midline. No JVD. CARDIOVASCULAR: Irregularly irregular rate and rhythm, tachycardia. S1, S2. No S4. Without murmur No murmur appreciated. RESPIRATORY: Air entry bilaterally but significantly diminished in bilateral lower lung tate. Crackles noted left greater than right lung tate GASTROINTESTINAL: Abdomen soft, distended from ascites, large ventral hernia. Hypoactive bowel sounds. MUSCULOSKELETAL: 2+ edema bilateral upper and lower extremity/anasarca NEUROLOGICAL: GCS 3T . Intubated and sedated. Not withdrawing to pain. Positive gag. Positive corneal reflex. Procedures Planned Paracentesis Date of Insertion: Apr 25, 2017 A/P Assessment and Plan Neuro/Psych Acute metabolic encephalopathy Hx of ETOH abuse History of central pontine myelinolysis with quadriparesis -- Monitor mental status closely, but about encephalopathy secondary to sepsis --Currently on propofol drip at 31 alyce grams per kilogram per minute for sedation while intubated --Goal of RASS -2 --Daily sedation vacation CVS Pulmonary edema ? Reexpansion pulmonary edema versus ARDS Atrial fibrillation with RVR -- Continue Cardizem infusion -- Currently on Lovenox 70 mg every 12 -- 2d Echo no evidence of endocarditis, normal ejection fraction Pulmonary Acute hypoxemic respiratory failure Large right pleural effusion status post thoracentesis - Status post right thoracentesis and 2 L fluid removed with IV albumin infusing - Patient developed some degree of reexpansion pulmonary edema - IV Lasix 20 mg IV push given, if no significant improvement will need endotracheal intubation and mechanical ventilation - DuoNeb every 6 hours when necessary - Previous tracheostomy status post decannulation GI Spontaneous bacterial peritonitis secondary to MSSA Cirrhotic liver disease secondary to ETOH abuse and Hepatitis C Protein calorie malnutrition Ascites -- Prior U/S guided paracentesis 04/21/17, fluid was loculated and septated -- Exudative fluid growing MSSA indicated with peritonitis -- Antibiotics per ID -- Fluid culture growing MSSA Renal -- IV 2 mg Bumex given with not sufficient response -- Palmer catheter in place to monitor I/Os in critically ill patient Endocrine -- Electrolyte replacement protocol Heme Anemia Coagulopathy Right upper extremity DVT -- Anemia, and coagulopathy most likely secondary to chronic liver disease / ETOH use -- Transfused blood and blood products as needed -- Continue Lovenox 70 mg every 12 ID: MSSA bacteremia Spontaneous bacterial peritonitis -- Pertinent cultures: - Blood 04/20: 3/4 bottles MSSA - Ascitic fluid 04/21: MSSA Antibiotics per ID.Continue Ancef, vanco Prophylaxis: GI - Protonix DVT - SCDs; Lovenox 70 mg q 12 Discussed with bedside CC RN and [employer] for [facility] Patient at this time remains critically ill with severe sepsis acute encephalopathy severe hypoxemic respiratory failure. Large volume thoracentesis done on the right side but patient did develop reexpansion pulmonary edema. No sufficient improvement with diuresis. Most likely will need endotracheal intubation CCT 65 MIN excluding procedures Jignesh Guido MD Apr 28, 2017 11:34
--- NOTE | 2017-04-28 11:46 | HHI.CCPN ---
Subjective Remarks/Hospital Course History of Present Illness Mr. Forrest is a 56 year old male patient with cirrhosis secondary to hepatitis C and alcohol dependence, atrial fibrillation, hypertension, GERD, sleep apnea, history of central pontine myelinolysis,ascites requiring paracentesis who admitted to [facility] with on 04/20/2017 for evaluation of decreased oral intake, probable sepsis and ascites. An EKG on admission showed atrial fibrillation with RVR. His initial WBC count was 15K. Infectious disease was consulted and patient was placed on broad-spectrum antibiotic. Recently underwent paracentesis by IR on 04/21/17 with the fluid was described as loculated and septated. Fluid culture grew MSSA. 3 out of 4 blood cultures on 04/20/17 growing MSSA. For Atrial fibrillation with RVR patient was placed on Cardizem drip. Paracentesis on 04/21/2017 650 ccfluid removed. Peritoneal WBC - 44926; peritoneal RBC - 411. Patient had been receiving Ancef and vancomycin per ID recommendation Critical care medicine was consulted today a.m. as patient was increasingly short of breath and dyspneic and hypoxemic. Patient was placed on BiPAP 15/7 at 80% oxygen. I immediately evaluated the patient he appeared to be in moderate to severe distress. Bedside ultrasound showed large right-sided pleural effusion. I gave him 25 g of albumin and performed thoracentesis with 2 L of fluid removal. Chest x-ray postprocedure showed significant clearing of the right lung field but increased edema involving the left lung field. It is possible that patient has developed reexpansion pulmonary edema, I gave him 2 mg of IV bumex. Repeat Chest x-ray continues to show bilateral pulmonary edema , I have signed out this case to Dr. Bob who will most likely intubated the patient. Subjective subjective: 04/26: The patient required intubation, due to hypoxemic respiratory failure last a.m.. Patient still requires has high oxygen and ventilatory requirements,PEEP increased to 10. Aggressive diuresis continues. The patient converted to normal sinus rhythm yesterday afternoon amiodarone has been discontinued Cardizem has been discontinued. The patient continues on metoprolol twice a day. 04/27: Decreased urinary output overnight. Bumex 1 mg/hour instituted. Plan for repeat paracentesis procedure. The patient remains normal sinus rhythm. Subjective 04/28: Afebrile. Paracentesis today only 300 cc. Possibly slightly loculated. Weaning back loop diuretic in light of worsening renal function. Plan for right-sided pigtail catheter for recurrent pleural effusion. In attempt to wean off ventilator. Tolerating tube feeding at 10 cc an hour Objective Vital Signs Date Time Temp Pulse Resp B/P Pulse Ox O2 Delivery O2 Flow Rate FiO2 04/28/17 08:15 92 40 04/28/17 06:00 72 04/28/17 04:00 98.3 22 124/68 04/24/17 21:30 Partial Rebreather 04/24/17 17:32 6.00 Intake and Output 04/27/17 04/27/17 04/27/17 07:59 15:59 23:59 Intake Total 358 ml 700 ml 392 ml Output Total 350 ml 825 ml 450 ml Balance 8 ml -125 ml -58 ml Result Diagram: 04/28/17 0539 04/28/17 0539 Other Results Microbiology Date/Time Procedure Status Source Growth 04/25/17 16:20 Gram Stain - Final Complete Sputum Endotracheal 04/25/17 16:20 Sputum Culture - Final Complete Sputum Endotracheal MODERATE GROWTH NORMAL RESPIRATORY PRAVIN Imaging Last Impressions Chest X-Ray 04/27/17 0600 Signed Impressions: Service Date/Time: Thursday, April 27, 2017 04:29 - CONCLUSION: Overall stable appearance of the chest. Watson Bermeo MD Upper Extremity Ultrasound 04/23/17 0000 Signed Impressions: Service Date/Time: Sunday, April 23, 2017 10:50 - CONCLUSION: DVT in the right upper extremity seen in the right basilic vein. There is also superficial thrombus in the right cephalic vein. Mushtaq Brown MD Cyst Biopsy Asp-Paracentesis US 04/21/17 0000 Signed Impressions: Service Date/Time: April 11:07 - CONCLUSION: Uncomplicated ultrasound guided paracentesis. Please note that the fluid throughout the abdomen is extremely complex with septations. This can be seen when the fluid has become infected or is complicated by hemorrhage or malignancy. Mushtaq Alexis MD Abdomen/Pelvis CT 04/20/17 0000 Signed Impressions: Service Date/Time: Thursday, April 20, 2017 13:56 - CONCLUSION: 1. Moderate volume free fluid in the abdomen and pelvis with possible associated peritoneal thickening. Thickening of the peritoneal lining can be seen with infection. 2. Large right and moderate size left pleural effusion with associated compressive atelectasis. 3. There is an umbilical hernia containing fluid and fat and fluid containing hernia superior and to the left of the umbilicus. This hernia also contains a portion of the transverse colon. 4. Nonacute findings include changes related to chronic liver disease including recanalized paraumbilical vein and bilateral gynecomastia. 5. Other nonacute findings include cholelithiasis and moderate atherosclerotic disease. Mushtaq Alexis MD Objective Remarks GENERAL: 57-year-old critically ill male, currently intubated and sedated SKIN: Warm/dry. No rash/will perfuse. Ecchymosis bilateral upper and lower extremities HEAD: Atraumatic. Normocephalic. EYES: Pupils equal and round about 2 mm bilaterally and reactive. No scleral icterus. ENT: No nasal bleeding or discharge. Oropharynx without erythema NECK: Trachea midline. No JVD. CARDIOVASCULAR: RRR.. S1, S2. No S4. No rub. Systolic murmur left lower border sternum 2/6 RESPIRATORY: Air entry bilaterally but significantly diminished in bilateral lower lung tate. Crackles noted left greater than right lung tate GASTROINTESTINAL: Abdomen soft, distended from ascites, large ventral hernia. Hypoactive bowel sounds. : Positive scrotal edema. Palmer catheter in place MUSCULOSKELETAL: 2+ edema bilateral upper and lower extremity/anasarca NEUROLOGICAL: GCS 3T . Intubated and sedated. Not withdrawing to pain. Positive gag. Positive corneal reflex. Procedures Planned Paracentesis Date of Insertion: Apr 25, 2017 A/P Assessment and Plan Neuro/Psych Acute metabolic encephalopathy Hx of ETOH abuse History of central pontine myelinolysis with quadriparesis -- Monitor mental status closely, but about encephalopathy secondary to sepsis --Currently on propofol drip at 31 alyce grams per kilogram per minute for sedation while intubated --Goal of RASS -2 --Daily sedation vacation MRI brain ordered for today. CVS Pulmonary edema ? Reexpansion pulmonary edema versus ARDS Atrial fibrillation with RVR currently normal sinus rhythm -- Currently on enoxaparin 70 mg subcutaneous every 12. Held for paracentesis/ chest tube placement today -- 2d Echo no evidence of endocarditis, normal ejection fraction 60%. Trace MR. Moderate TR. Currently normal sinus rhythm and rate control. Pulmonary Acute hypoxemic respiratory failure Large right pleural effusion status post thoracentesis - Status post right thoracentesis and 2 L fluid removed with IV albumin infusing - Patient developed some degree of reexpansion pulmonary edema ACV ventilation 18/500/10/40 Ventilator bundle - DuoNeb every 6 hours with albuterol aerosols every 2 when necessary - Previous tracheostomy status post decannulation 2015 Spontaneous breathing trials when clinically indicated GI Spontaneous bacterial peritonitis secondary to MSSA Cirrhotic liver disease secondary to ETOH abuse and Hepatitis C genotype IIIa Protein calorie malnutrition/moderate Ascitesmoderate abdominal -- Prior U/S guided paracentesis 04/21/17, fluid was loculated and septated -- Exudative fluid growing MSSA indicated with peritonitis -- Antibiotics per ID --Status post paracentesis 04/28/likely to 300 cc. Culture sent. Currently on Jevity 1.5 goal 60 cc an hour. Pantoprazole for GI prophylaxis Outpatient workup/treatment for hepatitis C genotype IIIa - [id number] iu per milliliter Renal Acute kidney injury -- Palmer catheter in place to monitor I/Os in critically ill patient Decrease bumetanide from 1 mg per hour to 1 mg twice a day with Zaroxolyn 5 mill grams 1 in attempt to diurese. Possibly will need hemodialysis for volume removal. Endocrine/FEN: Hypokalemia Hypophosphatemia Hypo-magnesium -- Electrolyte replacement protocol Received 30 mmol K-Phos, 2 g mag sulfate. Recheck in AM. Heme Anemia Coagulopathy Thrombocytopenia Right upper extremity superficial thrombosis basilic/cephalic veins -- Anemia, and coagulopathy most likely secondary to chronic liver disease / ETOH use -- Transfused blood and blood products as needed On enoxaparin ID: MSSA bacteremia Spontaneous bacterial peritonitis -- Pertinent cultures: - Blood 04/20: 3/4 bottles MSSA - Ascitic fluid 04/21: MSSA Antibiotics per ID.Continue Ancef Prophylaxis: GI -pantoprazole DVT - SCDs; and enoxaparin 70 mg q 12 Discussed with bedside CC RN and CEREAL MILLER for [facility] Level III follow-up Jignesh Guido MD Apr 28, 2017 11:46
--- NOTE | 2017-04-28 11:50 | RADRPT ---
EXAM DATE/TIME: 04/28/2017 11:21 [place] COMPARISON: ABDOMEN KUB ONLY, September 21, 2015, 9:15. INDICATIONS : Left abdominal distention and outpouching. Post paracentesis 3 days ago. MEDICAL HISTORY : Hypertension. Arthritis. Claudication. SURGICAL HISTORY : Paracentesis. ENCOUNTER: Subsequent ACUITY: 1 week PAIN SCORE: Non-responsive. LOCATION: Left abdomen FINDINGS: Supine view of the abdomen was performed. The abdominal bowel gas pattern is nonspecific. There is a n NG tube in the stomach. No abnormal dilatation of small bowel. There is some mild gaseous distentio n of the colon. There is some stool in the colon. There is diffuse degenerative changes of the lumbar spine. The overall bowel gas pattern is not significantly changed compared to the prior study.. CONCLUSION: Nonspecific bowel gas pattern with some mild gaseous distention of the colon. There is an NG tube in stomach. Srinivasan Ivory MD on April 28, 2017 at 11:47 Board Certified Radiologist. This report was verified electronically.
[2017-04-28] MEDS: MAGNESIUM SULFATE 1 GM PREMIX 100 ML IV SCH ×2 (12:32→13:25)
[2017-04-28] MEDS: PANTOPRAZOLE SODIUM 40 MG VIAL IV PUSH SCH (12:32)
[2017-04-28 14:22] LABS: PERITONEAL LYMPHS 10 %; PERITONEAL POLYS(SEGS) 85 %; PERITONEAL WBC 2079 /MM3 (0-10)
[2017-04-28 14:23] LABS: PERITONEAL MONOS 5 %
[2017-04-28] MEDS ORDERED: LIDOCAINE HCL 1% 20 ML VIAL ONE (15:37)
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
--- NOTE | 2017-04-28 16:01 | HHI.HCPN ---
Palliative care spoke to patient's sister (Josefa) and brother (Tigre) per the patient's son's request to provide a clinical update and clarify medical goals of care. After a lengthy conversation, the family indicates ongoing aggressive goals at this time. They state in previous discussions with the patient he indicated he he would want CPR attempted one time, but if his heart were to stop again he would want to be allowed to pass peacefully and naturally. CODE STATUS will remain FULL CODE at this time. Family is uncertain if they would proceed with trach/PEG tube placement if indicated; at that time they may consider transitioning to more comfort focus goals. They are attempting to coordinate a trip to [place] in approximately 2 weeks. Palliative care will continue to follow this patient throughout his hospitalization to establish trust, assist with symptom management and clarification of medical treatment goals. . (Adina Gonzalez) Chart reviewed. Case discussed with palliative care EMERGENCY OPERATOR. Above note reviewed and I concur. . (Charles Ching MD) Adina Gonzalez Apr 28, 2017 16:01 Charles Ching MD Jun 26, 2017 11:14
--- NOTE | 2017-04-28 16:44 | PD.RAD ---
Post CT Procedure Prog Note Pre Procedure Diagnosis: (1) Pleural effusion Post Procedure Diagnosis: (1) Pleural effusion Procedure Date: Apr 28, 2017 Supervising Radiologist: Escobar Antony Anesthesia: Local Plan of Activity Patient to Unit: Critical Care Patient Condition: Poor See PACS Report for procedural detail/treatment Drainage Procedure Procedure 1 Imaging Guidance: CT Side: Right Procedure Type: Chest Tube Non-Tunneled Procedure: Placement Welsh: 12 Drainage: Pleurovac Fluid Removal (CCs): 1000 Fluid Description: Clear, Yellow Escobar Antony MD Apr 28, 2017 16:44
--- NOTE | 2017-04-28 16:52 | RADRPT ---
EXAM DATE/TIME: 04/28/2017 15:51 [facility] COMPARISON: CT THORAX W/O CONTRAST, September 04, 2015, 17:09. INDICATIONS : Evaluate for pleural effusion RADIATION DOSE: 7.85 CTDIvol (mGy) MEDICAL HISTORY : Cardiovascular disease. Hypertension. SURGICAL HISTORY : None. ENCOUNTER: Initial ACUITY: 1 day PAIN SCALE: Non-responsive LOCATION: chest TECHNIQUE: Volumetric scanning of the chest was performed. Using automated exposure control and adjustment of t he mA and/or kV according to patient size, radiation dose was kept as low as reasonably achievable to obtain optimal diagnostic quality images. DICOM format image data is available electronically for r eview and comparison. Follow-up recommendations for incidentally detected pulmonary nodules are based at a minimum on nodul e size and patient risk factors according to Fleischner Society Guidelines. FINDINGS: LUNGS: Extensive patchy consolidating infiltrate is evident throughout both lungs especially in the central and lower lung tate. PLEURAE: A moderate right pleural effusion and a [id number] left pleural effusion are noted. MEDIASTINUM: The heart is mildly enlarged. There is no evidence of pericardial effusion. AXILLAE: Within normal limits. No lymphadenopathy. MUSCULOSKELETAL: Within normal limits for patient age. MISCELLANEOUS: Free fluid is identified in the abdomen especially in the lesser sac posterior to the stomach. CONCLUSION: 1. Bilateral pleural effusions as described. 2. Extensive patchy consolidating infiltrates both lungs. 3. Cardiomegaly. 4. Ascites. Escobar Antony MD on April 28, 2017 at 16:48 Board Certified Radiologist. This report was verified electronically.
[2017-04-28] MEDS: BUMETANIDE INJ 1 MG/4 ML VIAL IV PUSH SCH (17:05)
--- NOTE | 2017-04-28 17:34 | HHI.GIFU ---
Subjective Remarks Pt intubated on vent. s/p paracentesis 300cc, then drain left in place and per RN 425 cc today and continuing to drain. Objective Vitals I&O Vital Signs Date Time Temp Pulse Resp B/P Pulse Ox O2 Delivery O2 Flow Rate FiO2 04/28/17 16:38 67 17 127/64 100 04/28/17 16:37 66 22 126/64 100 04/28/17 16:36 67 18 126/62 100 04/28/17 16:35 68 20 119/65 100 04/28/17 16:30 69 17 120/65 100 04/28/17 16:30 100 100 04/28/17 16:25 71 17 123/68 100 04/28/17 16:20 72 18 126/67 100 04/28/17 16:15 72 18 125/64 100 04/28/17 16:10 72 19 123/64 100 04/28/17 16:05 72 18 121/62 100 04/28/17 16:00 55 04/28/17 16:00 71 20 125/62 99 04/28/17 15:54 71 24 126/61 100 04/28/17 15:45 73 123/75 98 04/28/17 15:43 71 38 124/69 99 04/28/17 15:30 68 21 121/70 98 04/28/17 15:20 97 50 04/28/17 15:00 67 20 116/69 99 04/28/17 14:30 66 21 114/69 99 04/28/17 14:00 68 21 115/69 99 04/28/17 13:30 68 39 115/67 98 04/28/17 13:00 72 22 118/71 94 04/28/17 12:00 70 04/28/17 12:00 98.0 74 23 117/64 90 04/28/17 12:00 55 04/28/17 11:52 99 40 04/28/17 11:30 72 23 123/65 99 04/28/17 11:00 74 20 119/60 99 04/28/17 10:30 74 24 125/77 95 04/28/17 10:00 74 21 126/74 95 04/28/17 09:30 72 22 124/74 94 04/28/17 09:00 72 23 123/76 93 04/28/17 08:30 72 26 125/74 94 04/28/17 08:15 92 40 04/28/17 08:00 70 04/28/17 08:00 40 04/28/17 08:00 98.3 81 24 130/74 96 04/28/17 07:30 79 24 137/77 97 04/28/17 07:00 76 25 117/75 97 04/28/17 06:00 72 04/28/17 04:00 73 04/28/17 04:00 40 04/28/17 04:00 98.3 73 22 124/68 98 04/28/17 03:48 98 50 04/28/17 02:00 68 04/28/17 00:40 99 60 04/28/17 00:00 97.3 66 21 121/71 99 04/28/17 00:00 60 04/28/17 00:00 66 04/27/17 22:00 65 04/27/17 20:54 100 60 04/27/17 20:00 97.6 62 21 121/73 100 04/27/17 20:00 62 04/27/17 20:00 60 04/27/17 18:00 57 I/O 04/27/17 04/27/17 04/27/17 04/28/17 04/28/17 04/28/17 07:00 15:00 23:00 07:00 15:00 23:00 Intake Total 358 ml 700 ml 392 ml 345 ml Output Total 350 ml 825 ml 450 ml 650 ml 850 ml Balance 8 ml -125 ml -58 ml -305 ml -850 ml IV Total 183 ml 362 ml 102 ml 175 ml Tube Feeding 75 ml 78 ml 40 ml 70 ml Albumin 100 ml 200 ml 250 ml 100 ml Other 60 ml Output Urine Total 150 ml 425 ml 450 ml 650 ml Stool Total 200 ml 400 ml Chest Tube Drainage Total 850 ml # Bowel Movements 1 1 Laboratory Laboratory Tests Test 04/27/17 04/28/17 04/28/17 17:40 05:39 11:30 Prothrombin Time 14.5 14.8 Prothromb Time International 1.3 1.3 Ratio White Blood Count 8.9 Red Blood Count 3.09 Hemoglobin 8.5 Hematocrit 25.7 Mean Corpuscular Volume 83.1 Mean Corpuscular Hemoglobin 27.5 Mean Corpuscular Hemoglobin 33.1 Concent Red Cell Distribution Width 18.9 Platelet Count 104 Mean Platelet Volume 7.9 Neutrophils (%) (Auto) 87.6 Lymphocytes (%) (Auto) 6.5 Monocytes (%) (Auto) 3.5 Eosinophils (%) (Auto) 1.9 Basophils (%) (Auto) 0.5 Neutrophils # (Auto) 7.8 Lymphocytes # (Auto) 0.6 Monocytes # (Auto) 0.3 Eosinophils # (Auto) 0.2 Basophils # (Auto) 0.0 CBC Comment AUTO DIFF Differential Total Cells 100 Counted Neutrophils % (Manual) 90 Band Neutrophils % 3 Lymphocytes % 2 Monocytes % 1 Eosinophils % 1 Basophils % 1 Neutrophils # (Manual) 8.5 Metamyelocytes 2 Differential Comment FINAL DIFF MANUAL Platelet Estimate LOW Platelet Morphology Comment NORMAL Ovalocytes 2+ Sodium Level 142 Potassium Level 3.2 Chloride Level 110 Carbon Dioxide Level 22.9 Anion Gap 9 Blood Urea Nitrogen 26 Creatinine 1.61 Estimat Glomerular Filtration 44 Rate Random Glucose 97 Calcium Level 8.2 Phosphorus Level 1.6 Magnesium Level 1.6 Total Bilirubin 0.5 Aspartate Amino Transf 20 (AST/SGOT) Alanine Aminotransferase LESS THAN 6 (ALT/SGPT) Alkaline Phosphatase 66 Total Protein 6.3 Albumin 3.3 Free Thyroxine 0.99 Peritoneal Fluid pH 8.0 Peritoneal Fluid Specific 1.020 [place] Peritoneal Fluid WBC 2079 Peritoneal Fluid RBC 0 Peritoneal Fluid Neutrophils 85 Peritoneal Fluid Lymphocytes 10 Peritoneal Fluid Monocytes 5 Peritoneal Fluid Total Protein 2.7 Peritoneal Fluid Albumin 0.9 Peritoneal Fluid Glucose 4 Date/Time Procedure Status Source Growth 04/28/17 11:30 Gram Stain - Final Resulted Fluid Peritoneal Fluid 04/28/17 11:30 Body Fluid Culture Resulted Fluid Peritoneal Fluid Pending 04/25/17 02:06 Fungal Smear - Final Resulted Fluid Pleural Fluid NO FUNGAL ELEMENTS SEEN. 04/25/17 02:06 Fungal Culture Resulted Fluid Pleural Fluid Pending 04/25/17 02:06 Acid Fast Stain - Final Resulted Fluid Pleural Fluid NO ACID FAST BACILLI SEEN 04/25/17 02:06 Mycobacterial Culture Resulted Fluid Pleural Fluid Pending Physical Exam HEENT: normocephalic; atraumatic; no jaundice. intubated CHEST: coarse, chest tube right side draining yellowish clear fluid CARDIAC: RRR ABDOMEN: semifirm, distended, umbilical hernia, hernia LUQ, nontender; bowel sounds faint. EXTREMITIES: No clubbing, cyanosis, or edema. SKIN: ecchymotic right upper extremity DIRECTOR OF PLAYER PERSONNEL: intubated Assessment and Plan Plan ASSESSMENT - ascites/cirrhosis - small & nodular appearing liver on CT. LFTs WNL currently. Pt admits liver problem but cannot explain further. s/p paracentesis. ammonia 18 SAAG 0.7, MELD 11, AFP 1.7 cytology pending , cx revealed staphylococcus aureus fluid analysis, wbc 39593, RBC 411, rest wnl. s/p paracentesis 04/28, cytology pending. Drain left in place 425cc today. Hep C quant 25,000, genotype 3a CT 04-20-17--> mod free fluid abd and pelvis with poss associated peritoneal thickening, pleural effusions, umbilical hernia, hernia superior and left of umbilicus containing portion of transverse colon, changes r/t chronic liver dz including recanalized paraumbilical vein, cholelithiasis - SBP- cx revealed staphylococcus aureus, abx Cefazolin, vanco - anemia - 12.4 on admission. gradual decline . No active bleeding. normocytic. hx UGIB in 2014 2/2 portal hypertensive gastropathy. - leukocytosis - 15.2 on admission now WNL, - Hypoalbuminemia- albumin BID - Hx of hep-C- quant 22,500 - Right DVT on US, per attending - PNA, AF RVR per primary, cardiology following, ID following PLAN - can f/u as outpt re hep c tx - lactulose - Xifaxan - albumin - Await cytology from 04/28 - Diuretics if BP allows - supportive care This pt seen by myself and DR Byers and this note is written on his behalf Julia Decker Apr 28, 2017 17:33
[2017-04-28] MEDS: ARTIFICIAL TEARS OPTH OINT 3.5 APPLIC/3.5 GM TUBO EACH EYE SCH (21:00)
[2017-04-28] MEDS: POTASSIUM CHLORIDE 20 MEQ PWD PACKET NG SCH (21:00)
[2017-04-28 21:37] LABS: BICARBONATE 22.7 MEQ/L (21.0-32.0)
[2017-04-28] MEDS: MAGNESIUM OXIDE 400 MG TAB PO SCH (22:39)
[2017-04-29] VITALS (42 sets, daily range): BP systolic 104–137; BP diastolic 60–82; PULSE 56–163; RESP 14–45; TEMP 97.5–98.7; O2SAT 97–100
[2017-04-29] MEDS: RESP: ALBUTEROL 2.5 MG/IPRATROPIUM 0.5 MG NEB (SCH) NEB ×4 (02:07→21:48)
[2017-04-29] MEDS: PROPOFOL 1000 MG/100 ML INJ 100 ML IV SCH (03:11)
[2017-04-29] MEDS: ceFAZolin 2 GM PREMIX 50 ML IV SCH ×3 (05:22→22:31)
--- NOTE | 2017-04-29 05:27 | RADRPT ---
EXAM DATE/TIME: 04/29/2017 04:27 [facility] COMPARISON: CT THORAX W/O CONTRAST, April 28, 2017, 15:51. INDICATIONS : Evaluate for pnuemothorax. MEDICAL HISTORY : Hypertension. Arthritis. Cirrhosis. SURGICAL HISTORY : None. ENCOUNTER: Subsequent ACUITY: 1 week PAIN SCORE: Non-responsive. LOCATION: Bilateral chest FINDINGS: Small caliber chest tube now seen in the right lung base and the right pleural effusion has almost co mpletely resolved. There is decreased, now patchy/mild consolidation of the right lung base. Basilar consolidation and moderate effusion persists on the left. No pneumothorax seen. Heart size stable, within normal limits. Endotracheal tube tip is approximately 3 cm above the adelita . There is a nasogastric tube coursing into the stomach. CONCLUSION: 1. Decreased effusion and consolidation on the right after small caliber chest tube placement. 2. No significant change consolidation and moderate effusion on the left. 3. No pneumothorax. Mushtaq Brown MD on April 29, 2017 at 5:23 Board Certified Radiologist. This report was verified electronically.
--- NOTE | 2017-04-29 08:25 | HHI.CCPN ---
Subjective Remarks/Hospital Course History of Present Illness Mr. Forrest is a 56 year old male patient with cirrhosis secondary to hepatitis C and alcohol dependence, atrial fibrillation, hypertension, GERD, sleep apnea, history of central pontine myelinolysis,ascites requiring paracentesis who admitted to [facility] with on 04/20/2017 for evaluation of decreased oral intake, probable sepsis and ascites. An EKG on admission showed atrial fibrillation with RVR. His initial WBC count was 15K. Infectious disease was consulted and patient was placed on broad-spectrum antibiotic. Recently underwent paracentesis by IR on 04/21/17 with the fluid was described as loculated and septated. Fluid culture grew MSSA. 3 out of 4 blood cultures on 04/20/17 growing MSSA. For Atrial fibrillation with RVR patient was placed on Cardizem drip. Paracentesis on 04/21/2017 650 ccfluid removed. Peritoneal WBC - 35713; peritoneal RBC - 411. Patient had been receiving Ancef and vancomycin per ID recommendation Critical care medicine was consulted today a.m. as patient was increasingly short of breath and dyspneic and hypoxemic. Patient was placed on BiPAP 15/7 at 80% oxygen. I immediately evaluated the patient he appeared to be in moderate to severe distress. Bedside ultrasound showed large right-sided pleural effusion. I gave him 25 g of albumin and performed thoracentesis with 2 L of fluid removal. Chest x-ray postprocedure showed significant clearing of the right lung field but increased edema involving the left lung field. It is possible that patient has developed reexpansion pulmonary edema, I gave him 2 mg of IV bumex. Repeat Chest x-ray continues to show bilateral pulmonary edema , I have signed out this case to Dr. Bob who will most likely intubated the patient. Subjective subjective: 04/26: The patient required intubation, due to hypoxemic respiratory failure last a.m.. Patient still requires has high oxygen and ventilatory requirements,PEEP increased to 10. Aggressive diuresis continues. The patient converted to normal sinus rhythm yesterday afternoon amiodarone has been discontinued Cardizem has been discontinued. The patient continues on metoprolol twice a day. 04/27: Decreased urinary output overnight. Bumex 1 mg/hour instituted. Plan for repeat paracentesis procedure. The patient remains normal sinus rhythm. Subjective 04/28: Afebrile. Paracentesis today only 300 cc. Possibly slightly loculated. Weaning back loop diuretic in light of worsening renal function. Plan for right-sided pigtail catheter for recurrent pleural effusion. In attempt to wean off ventilator. Tolerating tube feeding at 10 cc an hour 04/29: Patient had a IR placed 10 Ukrainian chest tube on the right side with 1.7 L drained. Urine output 3.3 L in 24 hours. Remains severely encephalopathic. Bedside US shows moderate L effusion Objective Vital Signs Date Time Temp Pulse Resp B/P Pulse Ox O2 Delivery O2 Flow Rate FiO2 04/29/17 08:08 99 40 04/29/17 06:00 57 04/29/17 04:00 98.7 18 125/70 Intake and Output 04/28/17 04/28/17 04/29/17 08:00 16:00 00:00 Intake Total 345 ml 2003 ml Output Total 650 ml 4750 ml Balance -305 ml -2747 ml Result Diagram: 04/28/17 0539 04/28/172000 Imaging Last Impressions Chest X-Ray 04/27/17 0600 Signed Impressions: Service Date/Time: Thursday, April 27, 2017 04:29 - CONCLUSION: Overall stable appearance of the chest. Watson Bermeo MD Upper Extremity Ultrasound 04/23/17 0000 Signed Impressions: Service Date/Time: Sunday, April 23, 2017 10:50 - CONCLUSION: DVT in the right upper extremity seen in the right basilic vein. There is also superficial thrombus in the right cephalic vein. Mushtaq Brown MD Cyst Biopsy Asp-Paracentesis US 04/21/17 0000 Signed Impressions: Service Date/Time: April 11:07 - CONCLUSION: Uncomplicated ultrasound guided paracentesis. Please note that the fluid throughout the abdomen is extremely complex with septations. This can be seen when the fluid has become infected or is complicated by hemorrhage or malignancy. Mushtaq Alexis MD Abdomen/Pelvis CT 04/20/17 0000 Signed Impressions: Service Date/Time: Thursday, April 20, 2017 13:56 - CONCLUSION: 1. Moderate volume free fluid in the abdomen and pelvis with possible associated peritoneal thickening. Thickening of the peritoneal lining can be seen with infection. 2. Large right and moderate size left pleural effusion with associated compressive atelectasis. 3. There is an umbilical hernia containing fluid and fat and fluid containing hernia superior and to the left of the umbilicus. This hernia also contains a portion of the transverse colon. 4. Nonacute findings include changes related to chronic liver disease including recanalized paraumbilical vein and bilateral gynecomastia. 5. Other nonacute findings include cholelithiasis and moderate atherosclerotic disease. Mushtaq Alexis MD Objective Remarks GENERAL: 57-year-old critically ill male, currently intubated and sedated with propofol 30 g per KG per minute SKIN: Warm/dry. No rash/will perfuse. Ecchymosis bilateral upper and lower extremities HEAD: Atraumatic. Normocephalic. EYES: Pupils equal and round about 2 mm bilaterally and reactive. No scleral icterus. ENT: No nasal bleeding or discharge. Orotracheally intubated NECK: Trachea midline. No JVD. CARDIOVASCULAR: RRR.. S1, S2. No S4. No rub. Systolic murmur left lower border sternum 2/6 RESPIRATORY: Air entry bdiminished in bilateral lower lung tate. Crackles noted left greater than right lung tate. Moderate L pleural effusion GASTROINTESTINAL: Abdomen soft, distended from ascites, large ventral hernia. Hypoactive bowel sounds. : Positive scrotal edema. Palmer catheter in place MUSCULOSKELETAL: 2+ edema bilateral upper and lower extremity/anasarca NEUROLOGICAL: GCS 3T . Intubated and sedated. Slight withdrawal of LLE. Positive gag. Positive corneal reflex. Procedures Paracentesis Thoracentesis Right pigtail chest tube placement Urinary Catheter: Yes Assessment to: Continue Date of Insertion: Apr 25, 2017 A/P Assessment and Plan Neuro/Psych Acute metabolic encephalopathy Hx of ETOH abuse History of central pontine myelinolysis with quadriparesis -- Monitor mental status closely, metabolic encephalopathy secondary to sepsis --Currently on propofol drip at 31 alyce grams per kilogram per minute for sedation while intubated-DC 04/29 --Goal of RASS -1 --Daily sedation vacation --MRI brain ordered for today. CVS Pulmonary edema ? Reexpansion pulmonary edema versus ARDS Atrial fibrillation with RVR currently normal sinus rhythm --Currently on enoxaparin 70 mg subcutaneous every 12. Hold for chest tube placement today --2d Echo no evidence of endocarditis, normal ejection fraction 60%. Trace MR. Moderate TR. --Currently normal sinus rhythm and rate control. --Continue metoprolol --Currently on IV albumin 12.5 g every 12 hours, increase to 25 g every 8 hours --Continue Bumex 1 mg every 12 Pulmonary Acute hypoxemic respiratory failure Large right pleural effusion status post thoracentesis, R pigtail chest tube placement Moderate left-sided effusion - Status post right thoracentesis and 2 L fluid removed with IV albumin infusing - Patient developed some degree of reexpansion pulmonary edema - ACV ventilation 18/500/10/40 - s/p R pigtail CT 04/28 with 1.7L removed - Plan for left chest tube placement today 04/29 - Ventilator bundle - DuoNeb every 6 hours with albuterol aerosols every 2 when necessary - Previous tracheostomy status post decannulation 2015 - Spontaneous breathing trials when clinically indicated GI Spontaneous bacterial peritonitis secondary to MSSA Cirrhotic liver disease secondary to ETOH abuse and Hepatitis C genotype IIIa Protein calorie malnutrition/moderate Ascitesmoderate abdominal -- Prior U/S guided paracentesis 04/21/17, fluid was loculated and septated -- Exudative fluid growing MSSA indicated with peritonitis -- Antibiotics per ID --Status post paracentesis 04/28/likely to 300 cc. Culture sent. Continues to drain from site --Currently on Jevity 1.5 goal 60 cc an hour. --Pantoprazole for GI prophylaxis --Outpatient workup/treatment for hepatitis C genotype IIIa - [id number] iu per milliliter Renal Acute kidney injury -- Palmer catheter in place to monitor I/Os in critically ill patient -- Bumetanide 1 mg twice a day with Zaroxolyn 5 mill grams 1 given. Increase Bumex to 1 mg IVF q8h -- May hemodialysis for volume removal. Endocrine/FEN: Hypokalemia, now hyperkalemia Hypophosphatemia Hypo-magnesium -- Electrolyte replacement protocol -- CMP today pending Heme Anemia Coagulopathy Thrombocytopenia Right upper extremity superficial thrombosis basilic/cephalic veins -- Anemia, and coagulopathy most likely secondary to chronic liver disease / ETOH use -- Transfused blood and blood products as needed -- On enoxaparin 70mg sq q12 ID: MSSA bacteremia Spontaneous bacterial peritonitis -- Pertinent cultures: - Blood 04/20: 3/4 bottles MSSA - Ascitic fluid 04/21: MSSA Antibiotics per ID.Continue Ancef Prophylaxis: GI -pantoprazole DVT - SCDs; and enoxaparin 70 mg q 12 Discussed with bedside CC RN and NICKER for [facility] CCT 35 MIN Patient remains critically ill with severe encephalopathy respiratory failure and volume overload along with severe sepsis. Despite right chest tube and paracentesis, patient continues to be significantly volume overloaded at least 10 KG. I have increase Bumex and IV albumin. Will place a left-sided chest tube to drain moderate effusion Seven Landin MD Apr 29, 2017 08:25
[2017-04-29 08:29] LABS: AUTOMATED NEUTROPHIL # 6.2 TH/MM3 (1.8-7.7); BASOPHIL % 0.7 % (0.0-2.0); EOSINOPHIL # 0.1 TH/MM3 (0-0.4); EOSINOPHIL % 2.1 % (0.0-4.0); HEMATOCRIT 24.6 % (39.0-51.0); LYMPH % 5.5 % (9.0-44.0); LYMPHOCYTE # 0.4 TH/MM3 (1.0-4.8); MEAN CORPUSCULAR HEMOGLOBIN 28.1 PG (27.0-34.0); MEAN CORPUSCULAR HGB CONC 34.2 % (32.0-36.0); MONO % 4.7 % (0.0-8.0); PLATELET COUNT 94 TH/MM3 (150-450); RED CELL DISTRIBUTION WIDTH 19.4 % (11.6-17.2); WHITE BLOOD COUNT 7.1 TH/MM3 (4.0-11.0)
[2017-04-29] MEDS: LACTULOSE SYRUP 20 GM/30 ML CUP PO SCH (08:33)
[2017-04-29] MEDS: ARTIFICIAL TEARS OPTH OINT 3.5 APPLIC/3.5 GM TUBO EACH EYE SCH ×2 (08:33→19:46)
[2017-04-29] MEDS: CHLORHEXIDINE 0.12% (ORAL KIT) 15 ML CUP MT SCH ×2 (08:33→19:45)
[2017-04-29] MEDS: RIFAXIMIN 550 MG TAB PO SCH ×2 (08:34→19:46)
[2017-04-29] MEDS: BUMETANIDE INJ 1 MG/4 ML VIAL IV PUSH SCH ×2 (08:34→17:41)
[2017-04-29] MEDS: MAGNESIUM OXIDE 400 MG TAB PO SCH ×2 (08:34→19:46)
[2017-04-29] MEDS: METOPROLOL TARTRATE 25 MG TAB PO SCH ×2 (08:34→19:46)
[2017-04-29] MEDS: POTASSIUM CHLORIDE 20 MEQ PWD PACKET NG SCH ×2 (08:35→19:46)
[2017-04-29] MEDS: ENOXAPARIN SODIUM 80 MG/0.8 ML SYRINGE SQ SCH ×2 (08:35→19:47)
[2017-04-29] MEDS: PANTOPRAZOLE SODIUM 40 MG VIAL IV PUSH SCH (08:35)
[2017-04-29 08:36] LABS: HEMO FLAGS AUTO DIFF
[2017-04-29 09:01] LABS: ALKALINE PHOSPHATASE 65 U/L (45-117); ALT (GPT) LESS THAN 6 U/L (12-78); ANION GAP 9 MEQ/L (5-15); AST (GOT) 41 U/L (15-37); BICARBONATE 23.5 MEQ/L (21.0-32.0); BLOOD UREA NITROGEN 28 MG/DL (7-18); CHLORIDE 108 MEQ/L (98-107); CREATINE KINASE 396 U/L (39-308); GLOMERULAR FILTRATION RATE 45 ML/MIN (>89); MAGNESIUM 1.9 MG/DL (1.5-2.5); SODIUM (NA) 140 MEQ/L (136-145); TOTAL BILIRUBIN ADULT 0.6 MG/DL (0.2-1.0)
--- NOTE | 2017-04-29 09:50 | RADRPT ---
EXAM DATE/TIME: 04/28/2017 15:51 INDICATIONS : Right pleural effusion DEVICE(S): 1.) 12 gauge Severino FLUID: Total volume of850 cc of clear, yellow fluid was remoted. Fluid was discarded. MEDICAL HISTORY : Cardiovascular disease. Hypertension. SURGICAL HISTORY : None. ENCOUNTER: Initial ACUITY: 1 day PAIN SCORE: Non-responsive LOCATION: chest PROCEDURE: PROCEDURE : 1. CT guided chest tube placement. 2. Conscious sedation with continuous EKG and oximetry monitoring. The risks, benefits and alternatives to the procedure were explained and verbal and written consent w as obtained. The site was prepped in sterile fashion. Full sterile technique was used, including ca p, mask, sterile gloves and gown and a large sterile sheet. Hand hygiene and 2% chlorhexidine and/or betadine/alcohol prep was utilized per protocol for cutaneous antisepsis. The skin and subcutaneous tissues were infiltrated with local anesthetic solution. Using automated exposure control and adjus tment of the mA and/or kV according to patient size, radiation dose was kept as low as reasonably ach ievable to obtain optimal diagnostic quality images. DICOM format image data is available electronic ally for review and comparison. With CT guidance the chest was punctured and the prescribed catheter was placed in the right lung bas e. Wall suction was applied. Post procedure images demonstrate satisfactory position of the tube. T he catheter was sutured in place and a Percu-Stay was applied. Conscious sedation was performed with the prescribed dosages and duration as above. The patient merlyn ated the procedure well and there were no complications. EKG and oximetry remained stable throughout the procedure. The patient was sent to post anesthesia recovery in stable condition. CONCLUSION: Uncomplicated chest tube placement as above. Escobar Antony MD on April 29, 2017 at 9:41 Board Certified Radiologist. This report was verified electronically.
[2017-04-29 10:11] LABS: BANDS 13 % (0-6); BASOPHILS 1 % (0-2); EOSINOPHILS 3 % (0-4); NEUTROPHIL # MANUAL DIFF 6.2 TH/MM3 (1.8-7.7); PLATELET ESTIMATE SMEAR LOW (NORMAL); PLATELET MORPHOLOGY NORMAL (NORMAL); POLYS (SEG NEUTROPHILS) 74 % (16-70); SCAN/DIFF FINAL DIFF MANUAL; WBC DIFF SAMPLE 100
[2017-04-29 10:12] LABS: ACANTHOCYTES OCC (NORMAL); OVALOCYTES 1+ (NORMAL)
[2017-04-29] MEDS ORDERED: GADODIAMIDE PF 287 MG/ML 20 ML VIAL (for RAD MRI) IV ONE (10:34)
[2017-04-29] MEDS: ALBUMIN HUMAN 5% 25 GM/500 ML BOTTLE IV SCH ×2 (11:33→17:41)
[2017-04-29] MEDS: POTASSIUM CHLOR 20 MEQ PREMIX 100 ML IV PRN ×3 (11:34→16:59)
--- NOTE | 2017-04-29 13:01 | PD.PROCEDR ---
Procedure Note Procedure Procedure: Ultrasound-guided left pigtail chest tube placement Indication: Moderate to large left pleural effusion A time-out was completed verifying correct patient, procedure, site, positioning. The patient's left lower chest was prepped and draped in a sterile manner after the appropriate infiltration level was confirmed by ultrasound. 1% lidocaine was used anesthetize the surrounding skin. A 10-blade scalpel used to make the incision. 18G needle was then introduced without difficulty and into the pleural space and yellow clear appearing fluid was aspirated. Guidewire was placed through the needle and the needle was removed. A 7 Serbian dilator was used, followed by placement of 10 Serbian pigtail catheter over the guidewire using Seldinger technique. Guidewire was removed and pigtail was connected to the Vacutainer, initial output 600 ML of yellow pleural fluid. No air leak. A post-procedure chest x-ray was ordered and the fluid will be sent for several studies. Estimated Blood Loss: <3 ml. Seven Landin MD Apr 29, 2017 13:01
--- NOTE | 2017-04-29 13:47 | RADRPT ---
EXAM DATE/TIME: 04/29/2017 10:08 [facility] COMPARISON: MRI BRAIN W & W/O CONTRAST, July 31, 2015, 10:27. INDICATIONS : Central pontine myelinolysis. CONTRAST: 16 cc Omniscan (gadodiamide) IV MEDICAL HISTORY : Cirrhosis. SURGICAL HISTORY : Tracheostomy, peg tube placement. ENCOUNTER: Initial ACUITY: 1 day PAIN SCORE: 0/10 LOCATION: cranial TECHNIQUE: Multiplanar, multisequence MRI of the brain was performed both prior to and following the administrat ion of paramagnetic contrast. FINDINGS: CEREBRUM: The ventricles are normal for age. No evidence of midline shift, mass lesion, hemorrhage or acute in farction. No extraaxial fluid collections are seen. The pituitary gland and suprasellar cistern are normal in configuration. WHITE MATTER: No significant signal abnormalities are seen in the white matter. POSTERIOR FOSSA: Central pontine T2 hyperintensity seen at 2014 has resolved. There is no residual abnormal signal int ensity or mass effect. Brainstem and cerebellum are otherwise unremarkable. The 4th ventricle is midl ine. The cerebellopontine angle is unremarkable. The cerebellar tonsils are normal in position. DIFFUSION IMAGING: No focal areas of restricted diffusion are seen. No evidence of acute infarction. EXTRACRANIAL: The visualized portions of the orbits and paranasal sinuses are unremarkable. POST-CONTRAST: No abnormal areas of parenchymal or dural enhancement. No evidence of blood-brain barrier breakdown. CONCLUSION: 1. No evidence of acute infarct, hemorrhage, mass or edema. 2. No evidence of pontine myelinolysis. 3. 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 Escobar Antony MD on April 29, 2017 at 13:41 Board Certified Radiologist. This report was verified electronically.
--- NOTE | 2017-04-29 13:48 | RADRPT ---
EXAM DATE/TIME: 04/29/2017 13:16 [facility] COMPARISON: CHEST EXPIRATION ONLY, April 29, 2017, 4:27. CT THORAX W/O CONTRAST, April 28, 2017, 15:51. INDICATIONS : Left pigtail chest tube placement. MEDICAL HISTORY : Cardiovascular disease. Hypertension SURGICAL HISTORY : None. ENCOUNTER: Initial ACUITY: 1 week PAIN SCORE: Non-responsive. LOCATION: Bilateral chest FINDINGS: Bilateral lung base pigtail thoracostomy tubes. Significant improvement in aeration at the left base post left tube placement. Mild patchy residual bilateral airspace disease. Cardiac contours are stabl e and satisfactory. Endotracheal tube and nasogastric tube are present in stable position. CONCLUSION: Improved chest appearance post left sided thoracostomy tube placement Mushtaq Ayala MD on April 29, 2017 at 13:45 Board Certified Radiologist. This report was verified electronically.
--- NOTE | 2017-04-29 15:43 | HHI.GIFU ---
Subjective Remarks Pt s/p pigtail stent insertion left chest. Objective Vitals I&O Vital Signs Date Time Temp Pulse Resp B/P Pulse Ox O2 Delivery O2 Flow Rate FiO2 04/29/17 12:00 40 04/29/17 11:59 99 40 04/29/17 10:49 100 50 04/29/17 08:08 99 40 04/29/17 08:00 40 04/29/17 06:00 57 04/29/17 04:00 98.7 60 18 125/70 99 04/29/17 04:00 61 04/29/17 04:00 40 04/29/17 03:50 98 40 04/29/17 02:00 60 04/29/17 01:20 98 40 04/29/17 00:00 61 04/29/17 00:00 40 04/29/17 00:00 98.7 61 18 110/62 98 04/28/17 22:36 99 40 04/28/17 22:00 60 04/28/17 20:46 98 40 04/28/17 20:00 40 04/28/17 20:00 98.2 59 20 111/64 99 04/28/17 20:00 59 04/28/17 18:00 61 04/28/17 16:38 67 17 127/64 100 04/28/17 16:37 66 22 126/64 100 04/28/17 16:36 67 18 126/62 100 04/28/17 16:35 68 20 119/65 100 04/28/17 16:30 69 17 120/65 100 04/28/17 16:30 100 100 04/28/17 16:25 71 17 123/68 100 04/28/17 16:20 72 18 126/67 100 04/28/17 16:15 72 18 125/64 100 04/28/17 16:10 72 19 123/64 100 04/28/17 16:05 72 18 121/62 100 04/28/17 16:00 71 04/28/17 16:00 55 04/28/17 16:00 71 20 125/62 99 04/28/17 15:54 71 24 126/61 100 04/28/17 15:45 73 123/75 98 04/28/17 15:43 71 38 124/69 99 I/O 8/10/17 804/28/17 04/29/17 04/29/17 04/29/17 07:00 15:00 23:00 07:00 15:00 23:00 Intake Total 345 ml 2003 ml 524 ml Output Total 650 ml 4750 ml 1030 ml Balance -305 ml -2747 ml -506 ml Intake Oral 0 ml 0 ml IV Total 175 ml 1092 ml 335 ml Tube Feeding 70 ml 191 ml 189 ml Albumin 100 ml 500 ml Other 220 ml 0 ml Output Urine Total 650 ml 2400 ml 900 ml Chest Tube Drainage Total 1600 ml 120 ml Drainage Total 750 ml 10 ml # Bowel Movements 1 1 1 Laboratory Laboratory Tests Test 04/28/17 04/29/17 20:01 06:25 Sodium Level 138 140 Potassium Level 6.0 3.0 Chloride Level 108 108 Carbon Dioxide Level 22.7 23.5 Anion Gap 7 9 Blood Urea Nitrogen 27 28 Creatinine 1.59 1.57 Estimat Glomerular Filtration 45 45 Rate Random Glucose 96 107 Calcium Level 8.1 8.0 Phosphorus Level 2.2 3.1 Magnesium Level 2.0 1.9 White Blood Count 7.1 Red Blood Count 3.00 Hemoglobin 8.4 Hematocrit 24.6 Mean Corpuscular Volume 82.0 Mean Corpuscular Hemoglobin 28.1 Mean Corpuscular Hemoglobin 34.2 Concent Red Cell Distribution Width 19.4 Platelet Count 94 Mean Platelet Volume 8.5 Neutrophils (%) (Auto) 87.0 Lymphocytes (%) (Auto) 5.5 Monocytes (%) (Auto) 4.7 Eosinophils (%) (Auto) 2.1 Basophils (%) (Auto) 0.7 Neutrophils # (Auto) 6.2 Lymphocytes # (Auto) 0.4 Monocytes # (Auto) 0.3 Eosinophils # (Auto) 0.1 Basophils # (Auto) 0.0 CBC Comment AUTO DIFF Differential Total Cells 100 Counted Neutrophils % (Manual) 74 Band Neutrophils % 13 Lymphocytes % 5 Monocytes % 4 Eosinophils % 3 Basophils % 1 Neutrophils # (Manual) 6.2 Differential Comment FINAL DIFF MANUAL Platelet Estimate LOW Platelet Morphology Comment NORMAL Ovalocytes 1+ Acanthocytes OCC Total Bilirubin 0.6 Aspartate Amino Transf 41 (AST/SGOT) Alanine Aminotransferase LESS THAN 6 (ALT/SGPT) Alkaline Phosphatase 65 Total Creatine Kinase 396 Creatine Kinase MB 9.0 Creatine Kinase MB % 2.3 Total Protein 5.9 Albumin 2.7 Date/Time Procedure Status Source Growth 04/28/17 11:30 Gram Stain - Final Resulted Fluid Peritoneal Fluid 04/28/17 11:30 Body Fluid Culture - Preliminary Resulted Fluid Peritoneal Fluid NO GROWTH IN 24 HOURS. 04/25/17 02:06 Fungal Smear - Final Resulted Fluid Pleural Fluid NO FUNGAL ELEMENTS SEEN. 04/25/17 02:06 Fungal Culture Resulted Fluid Pleural Fluid Pending 04/25/17 02:06 Acid Fast Stain - Final Resulted Fluid Pleural Fluid NO ACID FAST BACILLI SEEN 04/25/17 02:06 Mycobacterial Culture Resulted Fluid Pleural Fluid Pending Imaging Last Impressions Chest X-Ray 04/29/17 0000 Signed Impressions: Service Date/Time: Saturday, April 29, 2017 13:16 - CONCLUSION: Improved chest appearance post left sided thoracostomy tube placement Mushtaq Ayala MD Brain MRI 04/29/17 0000 Signed Impressions: Service Date/Time: Saturday, April 29, 2017 10:08 - CONCLUSION: 1. No evidence of acute infarct, hemorrhage, mass or edema. 2. No evidence of pontine myelinolysis. 3. 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 Escobar Antony MD Chest Tube Insertion 04/28/17 1555 Signed Impressions: Service Date/Time: April 15:51 - CONCLUSION: Uncomplicated chest tube placement as above. Escobar Antony MD Chest CT 04/28/17 0000 Signed Impressions: Service Date/Time: April 15:51 - CONCLUSION: 1. Bilateral pleural effusions as described. 2. Extensive patchy consolidating infiltrates both lungs. 3. Cardiomegaly. 4. Ascites. Escobar Antony MD Abdomen X-Ray 04/28/17 0000 Signed Impressions: Service Date/Time: April 11:21 - CONCLUSION: Nonspecific bowel gas pattern with some mild gaseous distention of the colon. There is an NG tube in stomach. Srinivasan Ivory MD Upper Extremity Ultrasound 04/23/17 0000 Signed Impressions: Service Date/Time: Sunday, April 23, 2017 10:50 - CONCLUSION: DVT in the right upper extremity seen in the right basilic vein. There is also superficial thrombus in the right cephalic vein. Mushtaq Brown MD Cyst Biopsy Asp-Paracentesis US 04/21/17 0000 Signed Impressions: Service Date/Time: April 11:07 - CONCLUSION: Uncomplicated ultrasound guided paracentesis. Please note that the fluid throughout the abdomen is extremely complex with septations. This can be seen when the fluid has become infected or is complicated by hemorrhage or malignancy. Mushtaq Alexis MD Abdomen/Pelvis CT 04/20/17 0000 Signed Impressions: Service Date/Time: Thursday, April 20, 2017 13:56 - CONCLUSION: 1. Moderate volume free fluid in the abdomen and pelvis with possible associated peritoneal thickening. Thickening of the peritoneal lining can be seen with infection. 2. Large right and moderate size left pleural effusion with associated compressive atelectasis. 3. There is an umbilical hernia containing fluid and fat and fluid containing hernia superior and to the left of the umbilicus. This hernia also contains a portion of the transverse colon. 4. Nonacute findings include changes related to chronic liver disease including recanalized paraumbilical vein and bilateral gynecomastia. 5. Other nonacute findings include cholelithiasis and moderate atherosclerotic disease. Mushtaq Alexis MD Physical Exam HEENT: normocephalic; atraumatic; no jaundice. intubated CHEST: coarse, chest tube right & left sides draining yellowish clear fluid CARDIAC: RRR ABDOMEN: soft, distended, umbilical hernia, hernia LUQ, nontender; bowel sounds faint. EXTREMITIES: No clubbing, cyanosis, + BLE pitting edema SKIN: ecchymotic BUE, SPOUT LINER: intubated Assessment and Plan Plan ASSESSMENT - ascites/cirrhosis - small & nodular appearing liver on CT. LFTs WNL currently. Pt admits liver problem but cannot explain further. s/p paracentesis. ammonia 18 SAAG 0.7, MELD 11, AFP 1.7 cytology pending , cx revealed staphylococcus aureus fluid analysis, wbc [id number], RBC 411, rest wnl. s/p paracentesis 04/28, cytology pending. Drain left in place 425cc today. Hep C quant 25,000, genotype 3a CT 04-20-17--> mod free fluid abd and pelvis with poss associated peritoneal thickening, pleural effusions, umbilical hernia, hernia superior and left of umbilicus containing portion of transverse colon, changes r/t chronic liver dz including recanalized paraumbilical vein, cholelithiasis - SBP- cx revealed staphylococcus aureus, abx Cefazolin peritoneal flulid no growth 24h - anemia - 12.4 on admission. gradual decline . No active bleeding. normocytic. hx UGIB in 2014 2/2 portal hypertensive gastropathy. - leukocytosis - 15.2 on admission now WNL, - Hypoalbuminemia- albumin BID - Hx of hep-C- quant 22,500 - Right DVT on US, per attending - PNA, AF RVR per primary, cardiology following, ID following PLAN - can f/u as outpt re hep c tx - lactulose - Xifaxan - albumin - Await cytology from 04/28 - Diuretics if BP allows - supportive care This pt seen by myself and DR Byers and this note is written on his behalf Julia Decker Apr 29, 2017 15:43
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
[2017-04-29 18:38] LABS: TOTAL PROTEIN,PLEURAL FLUID 2.8 GM/DL
[2017-04-29 19:25] LABS: PLEURAL FLUID LYMPHS 42 %
[2017-04-30] VITALS (19 sets, daily range): BP systolic 112–139; BP diastolic 67–81; PULSE 73–170; RESP 18–27; TEMP 99.1–100.8; O2SAT 94–99
[2017-04-30] MEDS: ALBUMIN HUMAN 5% 25 GM/500 ML BOTTLE IV SCH ×3 (01:29→17:49)
[2017-04-30] MEDS: RESP: ALBUTEROL 2.5 MG/IPRATROPIUM 0.5 MG NEB (SCH) NEB ×5 (04:29→19:49)
--- NOTE | 2017-04-30 05:03 | RADRPT ---
EXAM DATE/TIME: 04/30/2017 03:45 [place] COMPARISON: CHEST SINGLE AP, April 29, 2017, 13:16. INDICATIONS : Shortness of breath, possible pulmonary disease. MEDICAL HISTORY : Arthritis. Cirrhosis. Hypertension. Seizures Sleep apnea SURGICAL HISTORY : Paracentesis ENCOUNTER: Subsequent ACUITY: 1 week PAIN SCORE: Non-responsive. LOCATION: Bilateral chest FINDINGS: A single view of the chest demonstrates minimal bilateral airspace disease. Bilateral small caliber c hest tubes are stable in position. No pneumothorax on the left. Tiny right apical pneumothorax. Heart normal in size. Endotracheal tube and nasogastric are unchanged.. The cardiomediastinal contours ar e unremarkable. Osseous structures are intact. CONCLUSION: 1. Tiny right apical pneumothorax. 2. No pneumothorax on the left. 3. Minimal bilateral airspace disease. Charlie Claudio MD on April 30, 2017 at 4:59 Board Certified Radiologist. This report was verified electronically.
[2017-04-30] MEDS: ceFAZolin 2 GM PREMIX 50 ML IV SCH ×3 (05:54→21:30)
[2017-04-30 06:18] LABS: AUTOMATED NEUTROPHIL # 4.8 TH/MM3 (1.8-7.7); BASOPHIL % 0.5 % (0.0-2.0); EOSINOPHIL # 0.1 TH/MM3 (0-0.4); EOSINOPHIL % 1.3 % (0.0-4.0); HEMATOCRIT 23.8 % (39.0-51.0); LYMPH % 11.5 % (9.0-44.0); LYMPHOCYTE # 0.7 TH/MM3 (1.0-4.8); MEAN CELL VOLUME 81.4 FL (80.0-100.0); MEAN CORPUSCULAR HEMOGLOBIN 27.9 PG (27.0-34.0); MEAN CORPUSCULAR HGB CONC 34.3 % (32.0-36.0); MONO % 6.1 % (0.0-8.0); NEUT % 80.6 % (16.0-70.0); PLATELET COUNT 93 TH/MM3 (150-450); RED BLOOD COUNT 2.92 MIL/MM3 (4.50-5.90); RED CELL DISTRIBUTION WIDTH 19.6 % (11.6-17.2); WHITE BLOOD COUNT 5.9 TH/MM3 (4.0-11.0)
[2017-04-30 06:27] LABS: HEMO FLAGS AUTO DIFF
[2017-04-30 06:36] LABS: ALT (GPT) LESS THAN 6 U/L (12-78); ANION GAP 12 MEQ/L (5-15); AST (GOT) 31 U/L (15-37); BICARBONATE 23.3 MEQ/L (21.0-32.0); BLOOD UREA NITROGEN 29 MG/DL (7-18); CHLORIDE 107 MEQ/L (98-107); GLOMERULAR FILTRATION RATE 42 ML/MIN (>89); MAGNESIUM 1.8 MG/DL (1.5-2.5); POTASSIUM 3.2 MEQ/L (3.5-5.1); SODIUM (NA) 142 MEQ/L (136-145)
[2017-04-30 06:55] LABS: ALKALINE PHOSPHATASE 61 U/L (45-117); TOTAL BILIRUBIN ADULT 0.7 MG/DL (0.2-1.0)
[2017-04-30] MEDS ORDERED: DILTIAZEM HCL 25 MG/5 ML VIAL ONE (07:18)
[2017-04-30] MEDS: PANTOPRAZOLE SODIUM 40 MG VIAL IV PUSH SCH (07:54)
[2017-04-30] MEDS: LACTULOSE SYRUP 20 GM/30 ML CUP PO SCH (07:54)
[2017-04-30] MEDS: MAGNESIUM OXIDE 400 MG TAB PO SCH ×2 (07:55→21:30)
[2017-04-30] MEDS: RIFAXIMIN 550 MG TAB PO SCH ×2 (07:55→21:38)
[2017-04-30] MEDS: ENOXAPARIN SODIUM 80 MG/0.8 ML SYRINGE SQ SCH ×2 (07:56→21:39)
[2017-04-30] MEDS: POTASSIUM CHLORIDE 20 MEQ PWD PACKET NG SCH ×2 (07:56→21:00)
[2017-04-30] MEDS: ARTIFICIAL TEARS OPTH OINT 3.5 APPLIC/3.5 GM TUBO EACH EYE SCH (07:58)
[2017-04-30] MEDS: METOPROLOL TARTRATE 25 MG TAB PO SCH ×2 (07:58→21:30)
[2017-04-30] MEDS: BUMETANIDE INJ 1 MG/4 ML VIAL IV PUSH SCH ×2 (07:59→17:50)
[2017-04-30] MEDS ORDERED: DILTIAZEM INJ 125 MG in SODIUM CHLORIDE 0.9% INJ 100 ML IV SCH (08:00)
[2017-04-30] MEDS: CHLORHEXIDINE 0.12% (ORAL KIT) 15 ML CUP MT SCH ×2 (08:00→20:00)
[2017-04-30 10:29] LABS: PLATELET ESTIMATE SMEAR LOW (NORMAL); PLATELET MORPHOLOGY NORMAL (NORMAL); SCAN/DIFF AUTO DIFF CONFIRMED
--- NOTE | 2017-04-30 10:41 | HHI.CCPN ---
Subjective Remarks/Hospital Course History of Present Illness Mr. Forrest is a 56 year old male patient with cirrhosis secondary to hepatitis C and alcohol dependence, atrial fibrillation, hypertension, GERD, sleep apnea, history of central pontine myelinolysis,ascites requiring paracentesis who admitted to [facility] with on 04/20/2017 for evaluation of decreased oral intake, probable sepsis and ascites. An EKG on admission showed atrial fibrillation with RVR. His initial WBC count was 15K. Infectious disease was consulted and patient was placed on broad-spectrum antibiotic. Recently underwent paracentesis by IR on 04/21/17 with the fluid was described as loculated and septated. Fluid culture grew MSSA. 3 out of 4 blood cultures on 04/20/17 growing MSSA. For Atrial fibrillation with RVR patient was placed on Cardizem drip. Paracentesis on 04/21/2017 650 ccfluid removed. Peritoneal WBC - 02515; peritoneal RBC - 411. Patient had been receiving Ancef and vancomycin per ID recommendation Critical care medicine was consulted today a.m. as patient was increasingly short of breath and dyspneic and hypoxemic. Patient was placed on BiPAP 15/7 at 80% oxygen. I immediately evaluated the patient he appeared to be in moderate to severe distress. Bedside ultrasound showed large right-sided pleural effusion. I gave him 25 g of albumin and performed thoracentesis with 2 L of fluid removal. Chest x-ray postprocedure showed significant clearing of the right lung field but increased edema involving the left lung field. It is possible that patient has developed reexpansion pulmonary edema, I gave him 2 mg of IV bumex. Repeat Chest x-ray continues to show bilateral pulmonary edema , I have signed out this case to Dr. Bob who will most likely intubated the patient. Subjective subjective: 04/26: The patient required intubation, due to hypoxemic respiratory failure last a.m.. Patient still requires has high oxygen and ventilatory requirements,PEEP increased to 10. Aggressive diuresis continues. The patient converted to normal sinus rhythm yesterday afternoon amiodarone has been discontinued Cardizem has been discontinued. The patient continues on metoprolol twice a day. 04/27: Decreased urinary output overnight. Bumex 1 mg/hour instituted. Plan for repeat paracentesis procedure. The patient remains normal sinus rhythm. Subjective 04/28: Afebrile. Paracentesis today only 300 cc. Possibly slightly loculated. Weaning back loop diuretic in light of worsening renal function. Plan for right-sided pigtail catheter for recurrent pleural effusion. In attempt to wean off ventilator. Tolerating tube feeding at 10 cc an hour 04/29: Patient had a IR placed 10 Ukrainian chest tube on the right side with 1.7 L drained. Urine output 3.3 L in 24 hours. Remains severely encephalopathic. Bedside US shows moderate L effusion 81/2: Remains intubated. Developed Afib with RVR, rate 150-160. Cardizem gtt after 20 mg IVP with no improvement. Metoprolol 5 mg IVPx1. Start Amiodarone if not improved (already on full anticoagulation. Chest x-ray today shows bilateral pigtail chest tubes in place and tiny right apical pneumothorax (R pigtail was placed by radiology). Patient remains encephalopathy despite being off sedation Objective Vital Signs Date Time Temp Pulse Resp B/P Pulse Ox O2 Delivery O2 Flow Rate FiO2 04/30/17 08:49 99 35 04/30/17 08:00 170 04/30/17 04:00 99.7 18 112/72 Intake and Output 04/29/17 04/29/17 04/29/17 07:59 15:59 23:59 Intake Total 524 ml 1112 ml 726 ml Output Total 1030 ml 1936 ml 1375 ml Balance -506 ml -824 ml -649 ml Result Diagram: 04/30/17 0447 04/30/17 0447 Imaging Last Impressions Chest X-Ray 04/27/17 0600 Signed Impressions: Service Date/Time: Thursday, April 27, 2017 04:29 - CONCLUSION: Overall stable appearance of the chest. Watson Bermeo MD Upper Extremity Ultrasound 04/23/17 0000 Signed Impressions: Service Date/Time: Sunday, April 23, 2017 10:50 - CONCLUSION: DVT in the right upper extremity seen in the right basilic vein. There is also superficial thrombus in the right cephalic vein. Mushtaq Brown MD Cyst Biopsy Asp-Paracentesis US 04/21/17 0000 Signed Impressions: Service Date/Time: April 11:07 - CONCLUSION: Uncomplicated ultrasound guided paracentesis. Please note that the fluid throughout the abdomen is extremely complex with septations. This can be seen when the fluid has become infected or is complicated by hemorrhage or malignancy. Mushtaq Alexis MD Abdomen/Pelvis CT 04/20/17 0000 Signed Impressions: Service Date/Time: Thursday, April 20, 2017 13:56 - CONCLUSION: 1. Moderate volume free fluid in the abdomen and pelvis with possible associated peritoneal thickening. Thickening of the peritoneal lining can be seen with infection. 2. Large right and moderate size left pleural effusion with associated compressive atelectasis. 3. There is an umbilical hernia containing fluid and fat and fluid containing hernia superior and to the left of the umbilicus. This hernia also contains a portion of the transverse colon. 4. Nonacute findings include changes related to chronic liver disease including recanalized paraumbilical vein and bilateral gynecomastia. 5. Other nonacute findings include cholelithiasis and moderate atherosclerotic disease. Mushtaq Alexis MD Objective Remarks GENERAL: 57-year-old critically ill male, currently intubated not on sedation SKIN: Warm/dry. No rash/will perfused. Ecchymosis bilateral upper and lower extremities HEAD: Atraumatic. Normocephalic. EYES: Pupils equal and round about 2 mm bilaterally and reactive. No scleral icterus. ENT: No nasal bleeding or discharge. Orotracheally intubated NECK: Trachea midline. No JVD. CARDIOVASCULAR: Atrial fibrillation with rapid ventricular response heart rate in 150s. S1, S2. No S4. No rub. Systolic murmur left lower border sternum 2/6 RESPIRATORY: Air entry diminished in bilateral lower lung tate. Crackles noted left greater than right lung tate. Bilateral chest tubes in place with no air leak. 1.4 L total output in 24 hours GASTROINTESTINAL: Abdomen soft, distended from ascites, large ventral hernia. Hypoactive bowel sounds. : Positive scrotal edema. Palmer catheter in place MUSCULOSKELETAL: 2+ edema bilateral upper and lower extremity/anasarca NEUROLOGICAL: GCS 3T. Intubated and sedated. Slight withdrawal of LLE. Positive gag. Positive corneal reflex. Procedures Paracentesis Thoracentesis Right pigtail chest tube placement Urinary Catheter: Yes Assessment to: Continue Date of Insertion: Apr 25, 2017 A/P Assessment and Plan Neuro/Psych Acute metabolic encephalopathy Hx of ETOH abuse History of central pontine myelinolysis with quadriparesis -- Monitor mental status closely, metabolic encephalopathy secondary to sepsis --Currently off all sedation DCd propofol 04/29 --Goal of RASS -1 --MRI brain ordered 04/29 shows resolution of previous osmotic demyelination syndrome CVS Pulmonary edema ? Reexpansion pulmonary edema versus ARDS Atrial fibrillation with RVR --Currently on enoxaparin 70 mg subcutaneous every 12. --Placed on Cardizem bolus and infusion for A. fib with very high heart rate -- Inadequate heart rate control on Cardizem and metoprolol, start amiodarone bolus and infusion 04/30 --2d Echo no evidence of endocarditis, normal ejection fraction 60%. Trace MR. Moderate TR. --Continue metoprolol --Currently on IV albumin 25 g every 8 hours --Continue Bumex 1 mg every 12 Pulmonary Acute hypoxemic respiratory failure Large right pleural effusion status post thoracentesis, R pigtail chest tube placement by IR Moderate left-sided effusion s/p L pigtail CT Tiny R apical pneumothorax - Status post right thoracentesis and 2 L fluid removed with IV albumin infusing 04/25 - Patient developed reexpansion pulmonary edema - ACV ventilation 18/500/10/40 - s/p R pigtail CT 04/28 with IR, now with tiny R apical pneumothorax - s/p left chest tube placement 04/29 with 1050 ml removed since placement - Ventilator bundle. - DuoNeb every 6 hours with albuterol aerosols every 2 when necessary - Previous tracheostomy status post decannulation 2015 - No Spontaneous breathing trials today due to HR in 150s GI Spontaneous bacterial peritonitis with MSSA Cirrhotic liver disease secondary to ETOH abuse and Hepatitis C genotype IIIa Protein calorie malnutrition/moderate Ascitesmoderate abdominal -- Prior U/S guided paracentesis 04/21/17, fluid was loculated and septated -- Exudative fluid growing MSSA indicated with peritonitis -- Antibiotics per ID --Status post paracentesis 04/28 300 cc removed. Culture sent. Continues to drain from site --Currently on Jevity 1.5 goal 60 cc an hour. --Pantoprazole for GI prophylaxis --Outpatient workup/treatment for hepatitis C genotype IIIa - [id number] [id number] per milliliter Renal Acute kidney injury -- Palmer catheter in place to monitor I/Os in critically ill patient -- Bumetanide 1 mg q8h. Zaroxolyn 5 mill grams 1 dose given previously -- May hemodialysis for volume removal if renal function deteriorates Endocrine/FEN: Hypokalemia, Hypophosphatemia Hypo-magnesium -- Electrolyte replacement protocol Heme Anemia Coagulopathy Thrombocytopenia Right upper extremity superficial thrombosis basilic/cephalic veins -- Anemia, and coagulopathy most likely secondary to chronic liver disease / ETOH use -- Transfused blood and blood products as needed -- On enoxaparin 70mg sq q12 ID: MSSA bacteremia Spontaneous bacterial peritonitis -- Pertinent cultures: - Blood 04/20: / bottles MSSA - Ascitic fluid 04/21: MSSA Antibiotics per ID.Continue Ancef Prophylaxis: GI -pantoprazole DVT - SCDs; and enoxaparin 70 mg q 12 Discussed with bedside CC RN CCT 35 MIN Patient remains critically ill with severe encephalopathy respiratory failure and volume overload along with severe sepsis. Now with bilateral chest tubes and diuresis obtaining negative balance but still remains fluid overloaded. Seven Landin MD Apr 30, 2017 10:41 Seven Landin MD Apr 30, 2017 10:41
[2017-04-30] MEDS ORDERED: AMIODARONE INJ 150 MG in DEXTROSE 5% IN WATER 100ML INJ 97 ML IV ONE ×2 (10:45)
[2017-04-30] MEDS ORDERED: METOPROLOL TARTRATE 5 MG/5 ML VIAL IV PUSH ONE (11:00)
[2017-04-30] MEDS: AMIODARONE INJ 450 MG in DEXTROSE 5% IN WATE(EXCEL) INJ 241 ML IV SCH ×4 (11:52→18:21)
--- NOTE | 2017-04-30 12:27 | HHI.GIFU ---
Subjective Remarks Pt in bed, intubated. Per RN developed AF w/ RVR, amiodarone drip to be started. Tolerating TF, + BM overnight. (Julia Decker) Objective Vitals I&O Vital Signs Date Time Temp Pulse Resp B/P Pulse Ox O2 Delivery O2 Flow Rate FiO2 04/30/17 12:01 99 40 04/30/17 08:49 99 35 04/30/17 08:42 98 40 04/30/17 08:00 170 04/30/17 08:00 40 04/30/17 06:00 83 04/30/17 04:29 97 40 04/30/17 04:00 40 04/30/17 04:00 99.7 76 18 112/72 99 04/30/17 04:00 76 04/30/17 02:00 77 04/30/17 01:10 98 40 04/30/17 00:00 40 04/30/17 00:00 99.1 73 20 117/67 98 04/30/17 00:00 73 04/29/17 22:10 99 40 04/29/17 22:00 72 04/29/17 20:00 73 04/29/17 20:00 40 04/29/17 20:00 97.7 73 19 125/73 99 04/29/17 18:00 70 04/29/17 17:00 69 20 121/71 99 04/29/17 16:30 69 21 129/72 98 04/29/17 16:00 97.8 68 20 124/73 99 04/29/17 16:00 68 04/29/17 16:00 40 04/29/17 15:53 99 40 04/29/17 15:30 65 18 117/70 98 04/29/17 15:00 76 19 124/71 99 04/29/17 14:30 71 29 132/82 99 04/29/17 14:00 66 21 119/74 100 04/29/17 14:00 66 04/29/17 13:30 63 23 136/68 100 04/29/17 13:00 61 21 137/74 97 04/29/17 12:30 102 45 119/61 99 I/O 04/29/17 04/29/17 04/29/17 04/30/17 04/30/17 04/30/17 06:59 14:59 22:59 06:59 14:59 22:59 Intake Total 524 ml 1112 ml 726 ml 840 ml Output Total 1030 ml 1936 ml 1375 ml 870 ml Balance -506 ml -824 ml -649 ml -30 ml Intake Oral 0 ml IV Total 335 ml 419 ml 441 ml 100 ml Tube Feeding 189 ml 93 ml 285 ml 240 ml Albumin 500 ml 500 ml Other 0 ml 100 ml Output Urine Total 900 ml 1000 ml 1125 ml 600 ml Chest Tube Drainage Total 120 ml 936 ml 250 ml 270 ml Drainage Total 10 ml # Bowel Movements 1 1 0 1 Laboratory Laboratory Tests Test 04/29/17 04/29/17 04/30/17 13:00 16:43 04:47 Pleural Fluid pH 8.5 Pleural Fluid WBC 550 Pleural Fluid RBC 616 Pleural Fluid Neutrophils 39 Pleural Fluid Lymphocytes 42 Pleural Fluid Monocytes 2 Pleural Fluid Histiocytes 8 Pleural Fluid Mesothelial 9 Cells Pleural Fluid Total Protein 2.8 Pleural Fluid LDH 235 Pleural Fluid Glucose 111 Phosphorus Level 3.4 White Blood Count 5.9 Red Blood Count 2.92 Hemoglobin 8.1 Hematocrit 23.8 Mean Corpuscular Volume 81.4 Mean Corpuscular Hemoglobin 27.9 Mean Corpuscular Hemoglobin 34.3 Concent Red Cell Distribution Width 19.6 Platelet Count 93 Mean Platelet Volume 8.2 Neutrophils (%) (Auto) 80.6 Lymphocytes (%) (Auto) 11.5 Monocytes (%) (Auto) 6.1 Eosinophils (%) (Auto) 1.3 Basophils (%) (Auto) 0.5 Neutrophils # (Auto) 4.8 Lymphocytes # (Auto) 0.7 Monocytes # (Auto) 0.4 Eosinophils # (Auto) 0.1 Basophils # (Auto) 0.0 CBC Comment AUTO DIFF Differential Comment AUTO DIFF CONFIRMED Platelet Estimate LOW Platelet Morphology Comment NORMAL Sodium Level 142 Potassium Level 3.2 Chloride Level 107 Carbon Dioxide Level 23.3 Anion Gap 12 Blood Urea Nitrogen 29 Creatinine 1.67 Estimat Glomerular Filtration 42 Rate Random Glucose 101 Calcium Level 8.7 Magnesium Level 1.8 Total Bilirubin 0.7 Aspartate Amino Transf 31 (AST/SGOT) Alanine Aminotransferase LESS THAN 6 (ALT/SGPT) Alkaline Phosphatase 61 Total Protein 6.6 Albumin 3.3 Date/Time Procedure Status Source Growth 04/29/17 13:00 Gram Stain - Final Resulted Fluid Pleural Fluid 04/29/17 13:00 Body Fluid Culture Resulted Fluid Pleural Fluid Pending 04/29/17 13:00 Fungal Smear - Final Resulted Fluid Pleural Fluid NO FUNGAL ELEMENTS SEEN. 04/29/17 13:00 Fungal Culture Resulted Fluid Pleural Fluid Pending 04/29/17 13:00 Acid Fast Stain Received Fluid Pleural Fluid Pending 04/29/17 13:00 Mycobacterial Culture Received Fluid Pleural Fluid Pending Imaging Last Impressions Chest X-Ray 04/30/17 0600 Signed Impressions: Service Date/Time: Sunday, April 30, 2017 03:45 - CONCLUSION: 1. Tiny right apical pneumothorax. 2. No pneumothorax on the left. 3. Minimal bilateral airspace disease. Charlie Claudio MD Brain MRI 04/29/17 0000 Signed Impressions: Service Date/Time: Saturday, April 29, 2017 10:08 - CONCLUSION: 1. No evidence of acute infarct, hemorrhage, mass or edema. 2. No evidence of pontine myelinolysis. 3. 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 Escobar Antony MD Chest Tube Insertion 04/28/17 1555 Signed Impressions: Service Date/Time: April 15:51 - CONCLUSION: Uncomplicated chest tube placement as above. Escobar Antony MD Chest CT 04/28/17 0000 Signed Impressions: Service Date/Time: April 15:51 - CONCLUSION: 1. Bilateral pleural effusions as described. 2. Extensive patchy consolidating infiltrates both lungs. 3. Cardiomegaly. 4. Ascites. Escobar Antony MD Abdomen X-Ray 04/28/17 0000 Signed Impressions: Service Date/Time: April 11:21 - CONCLUSION: Nonspecific bowel gas pattern with some mild gaseous distention of the colon. There is an NG tube in stomach. Srinivasan Ivory MD Upper Extremity Ultrasound 04/23/17 0000 Signed Impressions: Service Date/Time: Sunday, April 23, 2017 10:50 - CONCLUSION: DVT in the right upper extremity seen in the right basilic vein. There is also superficial thrombus in the right cephalic vein. Mushtaq Brown MD Cyst Biopsy Asp-Paracentesis US 04/21/17 0000 Signed Impressions: Service Date/Time: April 11:07 - CONCLUSION: Uncomplicated ultrasound guided paracentesis. Please note that the fluid throughout the abdomen is extremely complex with septations. This can be seen when the fluid has become infected or is complicated by hemorrhage or malignancy. Mushtaq Alexis MD Abdomen/Pelvis CT 04/20/17 0000 Signed Impressions: Service Date/Time: Thursday, April 20, 2017 13:56 - CONCLUSION: 1. Moderate volume free fluid in the abdomen and pelvis with possible associated peritoneal thickening. Thickening of the peritoneal lining can be seen with infection. 2. Large right and moderate size left pleural effusion with associated compressive atelectasis. 3. There is an umbilical hernia containing fluid and fat and fluid containing hernia superior and to the left of the umbilicus. This hernia also contains a portion of the transverse colon. 4. Nonacute findings include changes related to chronic liver disease including recanalized paraumbilical vein and bilateral gynecomastia. 5. Other nonacute findings include cholelithiasis and moderate atherosclerotic disease. Mushtaq Alexis MD Physical Exam HEENT: normocephalic; atraumatic; no jaundice. intubated CHEST: coarse, chest tube right & left sides draining yellowish clear fluid CARDIAC: irr HR, tachy ABDOMEN: soft, distended, umbilical hernia, hernia LUQ, nontender; bowel sounds faint. 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 LFTs WNL currently. Pt admits liver problem but cannot explain further. s/p paracentesis. ammonia 18 SAAG 0.7, MELD 11, AFP 1.7 cytology pending , cx revealed staphylococcus aureus fluid analysis, wbc 54563, RBC 411, rest wnl. s/p paracentesis 04/28, cytology pending. Drain left in place 425cc today. Hep C quant 25,000, genotype 3a CT 04-20-17--> mod free fluid abd and pelvis with poss associated peritoneal thickening, pleural effusions, umbilical hernia, hernia superior and left of umbilicus containing portion of transverse colon, changes r/t chronic liver dz including recanalized paraumbilical vein, cholelithiasis - SBP- cx revealed staphylococcus aureus, abx Cefazolin peritoneal flulid growing staph. - anemia - 12.4 on admission. gradual decline . No active bleeding. normocytic. hx UGIB in 2014 2/2 portal hypertensive gastropathy. - leukocytosis - 15.2 on admission now WNL, - Hypoalbuminemia- albumin BID - Hx of hep-C- quant 22,500 - Right DVT on US, per attending - PNA, AF RVR per primary, cardiology following, ID following PLAN - can f/u as outpt re hep c tx - lactulose - Xifaxan - albumin - Await cytology from 04/28 - Diuretics if BP allows - supportive care This pt seen by myself and DR Gaviria and this note is written on his behalf ( Julia Decker) Plan Patient was seen and examined, agree with the above note on plan, follow up as an outpatient. (Elsie Gaviria MD) Julia Decker Apr 30, 2017 12:27 Elsie Gaviria MD Apr 30, 2017 13:58
[2017-04-30] MEDS: POTASSIUM CHLOR 20 MEQ PREMIX 100 ML IV PRN ×3 (14:34→21:22)
[2017-04-30] MEDS ORDERED: DIGOXIN 0.5 MG/2 ML VIAL IV PUSH ONE (15:00)
[2017-04-30] MEDS ORDERED: DILTIAZEM HCL 25 MG/5 ML VIAL IV ONE (15:00)
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
[2017-04-30 17:32] LABS: MAGNESIUM 1.9 MG/DL (1.5-2.5); POTASSIUM 3.5 MEQ/L (3.5-5.1)
[2017-05-01] VITALS (18 sets, daily range): BP systolic 129–137; BP diastolic 68–74; PULSE 73–83; RESP 22–37; TEMP 98.2–100.9; O2SAT 60–100
[2017-05-01] MEDS: ARTIFICIAL TEARS OPTH OINT 3.5 APPLIC/3.5 GM TUBO EACH EYE SCH ×3 (04:03→20:24)
[2017-05-01] MEDS: ALBUMIN HUMAN 5% 25 GM/500 ML BOTTLE IV SCH ×3 (04:03→17:42)
[2017-05-01] MEDS: RESP: ALBUTEROL 2.5 MG/IPRATROPIUM 0.5 MG NEB (SCH) NEB ×4 (04:37→21:28)
[2017-05-01 05:12] LABS: AUTOMATED NEUTROPHIL # 5.6 TH/MM3 (1.8-7.7); BASOPHIL % 0.6 % (0.0-2.0); EOSINOPHIL % 0.7 % (0.0-4.0); HEMATOCRIT 24.7 % (39.0-51.0); LYMPH % 11.2 % (9.0-44.0); LYMPHOCYTE # 0.8 TH/MM3 (1.0-4.8); MEAN CELL VOLUME 82.9 FL (80.0-100.0); MEAN CORPUSCULAR HEMOGLOBIN 27.7 PG (27.0-34.0); MEAN CORPUSCULAR HGB CONC 33.5 % (32.0-36.0); MONO % 6.9 % (0.0-8.0); NEUT % 80.6 % (16.0-70.0); PLATELET COUNT 65 TH/MM3 (150-450); RED BLOOD COUNT 2.98 MIL/MM3 (4.50-5.90); RED CELL DISTRIBUTION WIDTH 19.4 % (11.6-17.2)
[2017-05-01 05:14] LABS: HEMO FLAGS AUTO DIFF
[2017-05-01 05:48] LABS: ALKALINE PHOSPHATASE 70 U/L (45-117); ALT (GPT) LESS THAN 6 U/L (12-78); ANION GAP 9 MEQ/L (5-15); AST (GOT) 41 U/L (15-37); BICARBONATE 23.7 MEQ/L (21.0-32.0); BLOOD UREA NITROGEN 34 MG/DL (7-18); CHLORIDE 107 MEQ/L (98-107); GLOMERULAR FILTRATION RATE 35 ML/MIN (>89); MAGNESIUM 1.7 MG/DL (1.5-2.5); POTASSIUM 4.3 MEQ/L (3.5-5.1); SODIUM (NA) 140 MEQ/L (136-145); TOTAL BILIRUBIN ADULT 0.6 MG/DL (0.2-1.0)
[2017-05-01 05:55] LABS: OVALOCYTES 1+ (NORMAL); PLATELET ESTIMATE SMEAR LOW (NORMAL); PLATELET MORPHOLOGY NORMAL (NORMAL); SCAN/DIFF AUTO DIFF CONFIRMED; TEARDROP RBCS 1+ (NORMAL)
--- NOTE | 2017-05-01 06:00 | RADRPT ---
EXAM DATE/TIME: 05/01/2017 03:23 [place] COMPARISON: CHEST SINGLE AP, April 30, 2017, 3:45. INDICATIONS : Shortness of breath, possible pulmonary disease. MEDICAL HISTORY : Arthritis. Cirrhosis. Hypertension. Seizures Sleep apnea SURGICAL HISTORY : Paracentesis ENCOUNTER: Subsequent ACUITY: 1 week PAIN SCORE: Non-responsive. LOCATION: Bilateral chest FINDINGS: A single view of the chest demonstrates bilateral airspace disease greater throughout the right lung. Endotracheal tube, nasogastric tube are unchanged. Left-sided chest tube and right-sided chest tube unchanged. No pneumothorax on the right. Questionable small left basal pneumothorax. The cardiomedias tinal contours are unremarkable. Osseous structures are intact. CONCLUSION: 1. Bilateral airspace disease greater in the right lung. 2. Bilateral chest tubes with questionable small basilar left pneumothorax. Charlie Claudio MD on May 01, 2017 at 5:56 Board Certified Radiologist. This report was verified electronically.
[2017-05-01] MEDS: ceFAZolin 2 GM PREMIX 50 ML IV SCH ×3 (07:08→20:24)
[2017-05-01 07:22] LABS: HEMATOCRIT 25.3 % (39.0-51.0); MEAN CELL VOLUME 83.2 FL (80.0-100.0); MEAN CORPUSCULAR HEMOGLOBIN 27.1 PG (27.0-34.0); MEAN CORPUSCULAR HGB CONC 32.6 % (32.0-36.0); PLATELET COUNT 69 TH/MM3 (150-450); RED BLOOD COUNT 3.04 MIL/MM3 (4.50-5.90); RED CELL DISTRIBUTION WIDTH 19.4 % (11.6-17.2); WHITE BLOOD COUNT 6.5 TH/MM3 (4.0-11.0)
[2017-05-01 07:24] LABS: REVIEW FLAG FINAL
[2017-05-01] MEDS: LACTULOSE SYRUP 20 GM/30 ML CUP PO SCH (07:46)
[2017-05-01 07:55] LABS: APTT (PATIENT) 39.1 SEC (24.3-30.1); INTERNATIONAL NORMALIZED RATIO 1.2 RATIO; PROTHROMBIN TIME - PATIENT 13.4 SEC (9.8-11.6)
[2017-05-01] MEDS: HEPARIN-D5W 25,000 U/250 ML 250 ML IV SCH (08:19)
[2017-05-01] MEDS: METOPROLOL TARTRATE 25 MG TAB PO SCH (08:20)
[2017-05-01] MEDS: MAGNESIUM OXIDE 400 MG TAB PO SCH ×2 (08:20→20:24)
[2017-05-01] MEDS: RIFAXIMIN 550 MG TAB PO SCH ×2 (08:20→20:24)
[2017-05-01] MEDS: PANTOPRAZOLE SODIUM 40 MG VIAL IV PUSH SCH (08:20)
[2017-05-01] MEDS: POTASSIUM CHLORIDE 20 MEQ PWD PACKET NG SCH ×2 (08:21→20:24)
[2017-05-01] MEDS: CHLORHEXIDINE 0.12% (ORAL KIT) 15 ML CUP MT SCH ×2 (10:58→20:24)
--- NOTE | 2017-05-01 11:04 | HHI.CCPN ---
Subjective Remarks/Hospital Course History of Present Illness Mr. Forrest is a 56 year old male patient with cirrhosis secondary to hepatitis C and alcohol dependence, atrial fibrillation, hypertension, GERD, sleep apnea, history of central pontine myelinolysis,ascites requiring paracentesis who admitted to [facility] with on 04/20/2017 for evaluation of decreased oral intake, probable sepsis and ascites. An EKG on admission showed atrial fibrillation with RVR. His initial WBC count was 15K. Infectious disease was consulted and patient was placed on broad-spectrum antibiotic. Recently underwent paracentesis by IR on 04/21/17 with the fluid was described as loculated and septated. Fluid culture grew MSSA. 3 out of 4 blood cultures on 04/20/17 growing MSSA. For Atrial fibrillation with RVR patient was placed on Cardizem drip. Paracentesis on 04/21/2017 650 ccfluid removed. Peritoneal WBC - 50190; peritoneal RBC - 411. Patient had been receiving Ancef and vancomycin per ID recommendation Critical care medicine was consulted today a.m. as patient was increasingly short of breath and dyspneic and hypoxemic. Patient was placed on BiPAP 15/7 at 80% oxygen. I immediately evaluated the patient he appeared to be in moderate to severe distress. Bedside ultrasound showed large right-sided pleural effusion. I gave him 25 g of albumin and performed thoracentesis with 2 L of fluid removal. Chest x-ray postprocedure showed significant clearing of the right lung field but increased edema involving the left lung field. It is possible that patient has developed reexpansion pulmonary edema, I gave him 2 mg of IV bumex. Repeat Chest x-ray continues to show bilateral pulmonary edema , I have signed out this case to Dr. Bob who will most likely intubated the patient. Subjective subjective: 04/26: The patient required intubation, due to hypoxemic respiratory failure last a.m.. Patient still requires has high oxygen and ventilatory requirements,PEEP increased to 10. Aggressive diuresis continues. The patient converted to normal sinus rhythm yesterday afternoon amiodarone has been discontinued Cardizem has been discontinued. The patient continues on metoprolol twice a day. 04/27: Decreased urinary output overnight. Bumex 1 mg/hour instituted. Plan for repeat paracentesis procedure. The patient remains normal sinus rhythm. Subjective 04/28: Afebrile. Paracentesis today only 300 cc. Possibly slightly loculated. Weaning back loop diuretic in light of worsening renal function. Plan for right-sided pigtail catheter for recurrent pleural effusion. In attempt to wean off ventilator. Tolerating tube feeding at 10 cc an hour 04/29: Patient had a IR placed 10 Kyrgy[place] chest tube on the right side with 1.7 L drained. Urine output 3.3 L in 24 hours. Remains severely encephalopathic. Bedside US shows moderate L effusion 81/2: Remains intubated. Developed Afib with RVR, rate 150-160. Cardizem gtt after 20 mg IVP with no improvement. Metoprolol 5 mg IVPx1. Start Amiodarone if not improved (already on full anticoagulation. Chest x-ray today shows bilateral pigtail chest tubes in place and tiny right apical pneumothorax (R pigtail was placed by radiology). Patient remains encephalopathy despite being off sedation 05/01: Remains in normal sinus rhythm, rate controlled, on IV Cardizem and IV amiodarone. Patient remains encephalopathy, but more spontaneous eye opening. Lovenox change to IV heparin due to worsening renal failure. Also IV Bumex held due to increasing creatinine Objective Vital Signs Date Time Temp Pulse Resp B/P Pulse Ox O2 Delivery O2 Flow Rate FiO2 05/01/17 10:27 99 40 05/01/17 06:00 80 05/01/17 04:00 99.8 28 133/74 Intake and Output 04/30/17 04/30/17 05/01/17 08:00 16:00 00:00 Intake Total 840 ml 698 ml 2620 ml Output Total 870 ml 1100 ml 1350 ml Balance -30 ml -402 ml 1270 ml Result Diagram: 05/01/17 0657 05/01/17 0415 Other Results Microbiology Date/Time Procedure Status Source Growth 04/28/17 11:30 Gram Stain - Final Complete Fluid Peritoneal Fluid 04/28/17 11:30 Body Fluid Culture - Final Complete Staphylococcus Aureus Imaging Last Impressions Chest X-Ray 04/27/17 0600 Signed Impressions: Service Date/Time: Thursday, April 27, 2017 04:29 - CONCLUSION: Overall stable appearance of the chest. Watson Bermeo MD Upper Extremity Ultrasound 04/23/17 0000 Signed Impressions: Service Date/Time: Sunday, April 23, 2017 10:50 - CONCLUSION: DVT in the right upper extremity seen in the right basilic vein. There is also superficial thrombus in the right cephalic vein. Mushtaq Brown MD Cyst Biopsy Asp-Paracentesis US 04/21/17 0000 Signed Impressions: Service Date/Time: April 11:07 - CONCLUSION: Uncomplicated ultrasound guided paracentesis. Please note that the fluid throughout the abdomen is extremely complex with septations. This can be seen when the fluid has become infected or is complicated by hemorrhage or malignancy. Mushtaq Alexis MD Abdomen/Pelvis CT 04/20/17 0000 Signed Impressions: Service Date/Time: Thursday, April 20, 2017 13:56 - CONCLUSION: 1. Moderate volume free fluid in the abdomen and pelvis with possible associated peritoneal thickening. Thickening of the peritoneal lining can be seen with infection. 2. Large right and moderate size left pleural effusion with associated compressive atelectasis. 3. There is an umbilical hernia containing fluid and fat and fluid containing hernia superior and to the left of the umbilicus. This hernia also contains a portion of the transverse colon. 4. Nonacute findings include changes related to chronic liver disease including recanalized paraumbilical vein and bilateral gynecomastia. 5. Other nonacute findings include cholelithiasis and moderate atherosclerotic disease. Mushtaq Alexis MD Objective Remarks GENERAL: 57-year-old critically ill male, currently intubated not on sedation for >2 days SKIN: Warm/dry. No rash/will perfused. Ecchymosis bilateral upper and lower extremities HEAD: Atraumatic. Normocephalic. EYES: Pupils equal and round about 4 mm bilaterally and reactive. No scleral icterus. ENT: No nasal bleeding or discharge. Orotracheally intubated NECK: Trachea midline. No JVD. CARDIOVASCULAR: NSR. S1, S2. No S4. No rub. Systolic murmur left lower border sternum 2/6 RESPIRATORY: Air entry diminished bilateral lower lung tate. Crackles left greater than right lung tate. Bilateral chest tubes in place with no air leak. 950 ML total output in 24 hours GASTROINTESTINAL: Abdomen soft, distended from ascites, large ventral hernia. Hypoactive bowel sounds. : Positive scrotal edema. Palmer catheter in place MUSCULOSKELETAL: 2+ edema bilateral upper and lower extremity/anasarca NEUROLOGICAL: Intubated and not on sedation. Slight withdrawal of L upper and lower ext. no spontaneous eye opening today. Positive gag. Positive corneal reflex. Procedures Paracentesis Thoracentesis Right pigtail chest tube placement Date of Insertion: Apr 25, 2017 A/P Assessment and Plan Neuro/Psych Acute metabolic encephalopathy Hx of ETOH abuse History of central pontine myelinolysis with quadriparesis -- Monitor mental status closely, metabolic encephalopathy secondary to sepsis. Marginal improvement in neurological status with spontaneous eye opening --Currently off all sedation DCd propofol 04/29 --Goal of RASS 0 --MRI brain 04/29 shows resolution of previous osmotic demyelination syndrome CVS Pulmonary edema ? Reexpansion pulmonary edema versus ARDS Atrial fibrillation with RVR -- Currently on enoxaparin 70 mg subcutaneous every 12. Change to IV heparin on 05/01/17 due to worsening renal function -- NSR now. On Cardizem infusion and Amiodarone gtt. will wean to DC Cardizem today -- Continue metoprolol, increase to 50mg po q8 -- 2d Echo no evidence of endocarditis, normal ejection fraction 60%. Trace MR. Moderate TR. --Currently on IV albumin 25 g every 8 hours --Hold Bumex 1 mg every 12 05/01/17-renal function was Pulmonary Acute hypoxemic respiratory failure Large right pleural effusion status post thoracentesis, R pigtail chest tube placement by IR Moderate left-sided effusion s/p L pigtail CT Tiny R apical pneumothorax, now resolved - Status post right thoracentesis and 2 L fluid removed with IV albumin infusing 04/25 - Patient developed reexpansion pulmonary edema - ACV ventilation 18/500/10/40 - s/p R pigtail CT 04/28 with IR, tiny R apical pneumothorax - s/p left chest tube placement 04/29 - Ventilator bundle. - DuoNeb every 6 hours with albuterol aerosols every 2 when necessary - Previous tracheostomy status post decannulation 2015 - No Spontaneous breathing trials today due to HR in 150s GI Spontaneous bacterial peritonitis with MSSA Cirrhotic liver disease secondary to ETOH abuse and Hepatitis C genotype IIIa Protein calorie malnutrition/moderate Ascitesmoderate -- Prior U/S guided paracentesis 04/21/17, fluid was loculated and septated -- Exudative fluid growing MSSA indicated with peritonitis -- Antibiotics per ID --Status post paracentesis 04/28 300 cc removed. Culture sent. Continues to drain from site --Currently on Jevity 1.5 goal 60 cc an hour. --Pantoprazole for GI prophylaxis --Outpatient workup/treatment for hepatitis C genotype IIIa - [id number] iu per milliliter Renal Acute kidney injury -- Palmer catheter in place to monitor I/Os in critically ill patient -- Holding Bumex due to worsening creatinine -- May need hemodialysis for volume removal if renal function deteriorates Endocrine/FEN: Hypokalemia, Hypophosphatemia Hypo-magnesium -- Electrolyte replacement protocol Heme Anemia Coagulopathy Thrombocytopenia Right upper extremity superficial thrombosis basilic/cephalic veins -- Anemia, and coagulopathy most likely secondary to chronic liver disease / ETOH use -- Transfused blood and blood products as needed -- On enoxaparin 70mg sq q12, changed to Heparin gtt ID: MSSA bacteremia Spontaneous bacterial peritonitis -- Pertinent cultures: - Blood 04/20: 3/4 bottles MSSA - Ascitic fluid 04/21: MSSA Antibiotics per ID.Continue Ancef Prophylaxis: GI -pantoprazole DVT - SCDs; and heparin gtt Discussed with bedside CC RN CCT 35 MIN Patient remains critically ill with severe encephalopathy respiratory failure and volume overload along with severe sepsis. Now with bilateral chest tubes and diuresis obtaining negative balance but still remains fluid overloaded. Creatinine continues to worsen Seven Landin MD May 01, 2017 11:04
--- NOTE | 2017-05-01 11:12 | HHI.GIFU ---
Subjective Remarks Sedated on vent. Tolerating TF. + BM (Didi Lange) Objective Vitals I&O Vital Signs Date Time Temp Pulse Resp B/P Pulse Ox O2 Delivery O2 Flow Rate FiO2 05/01/17 10:27 99 40 05/01/17 08:23 99 40 05/01/17 06:45 40 05/01/17 06:45 40 05/01/17 06:00 80 05/01/17 04:40 98 40 05/01/17 04:00 99.8 79 28 133/74 98 05/01/17 04:00 40 05/01/17 04:00 79 05/01/17 02:00 75 05/01/17 00:35 60 40 05/01/17 00:00 73 05/01/17 00:00 40 05/01/17 00:00 100.9 73 26 129/72 98 04/30/17 22:00 75 04/30/17 20:00 40 04/30/17 20:00 99.7 84 27 139/71 98 04/30/17 20:00 84 04/30/17 19:49 97 40 04/30/17 18:00 83 04/30/17 16:03 99 40 04/30/17 16:00 79 04/30/17 16:00 40 04/30/17 16:00 100.3 79 27 128/67 94 04/30/17 14:00 148 04/30/17 12:01 99 40 04/30/17 12:00 140 04/30/17 12:00 100.8 140 24 120/79 99 04/30/17 12:00 40 04/30/17 12:00 40 I/O 04/30/17 04/30/17 04/30/17 05/01/17 05/01/17 05/01/17 07:00 15:00 23:00 07:00 15:00 23:00 Intake Total 840 ml 698 ml 2620 ml 1828 ml Output Total 870 ml 1100 ml 1350 ml 800 ml Balance -30 ml -402 ml 1270 ml 1028 ml IV Total 100 ml 698 ml 1272 ml 705 ml Tube Feeding 240 ml 648 ml 423 ml Albumin 500 ml 500 ml 500 ml Other 200 ml 200 ml Output Urine Total 600 ml 900 ml 1000 ml 400 ml Chest Tube Drainage Total 270 ml 200 ml 350 ml 400 ml # Bowel Movements 1 3 1 Laboratory Laboratory Tests Test 04/30/17 05/01/17 05/01/17 05/01/17 16:10 04:15 06:51 06:57 Potassium Level 3.5 4.3 Magnesium Level 1.9 1.7 White Blood Count 7.0 6.5 Red Blood Count 2.98 3.04 Hemoglobin 8.3 8.3 Hematocrit 24.7 25.3 Mean Corpuscular Volume 82.9 83.2 Mean Corpuscular Hemoglobin 27.7 27.1 Mean Corpuscular Hemoglobin 33.5 32.6 Concent Red Cell Distribution Width 19.4 19.4 Platelet Count 65 69 Mean Platelet Volume 8.5 7.9 Neutrophils (%) (Auto) 80.6 Lymphocytes (%) (Auto) 11.2 Monocytes (%) (Auto) 6.9 Eosinophils (%) (Auto) 0.7 Basophils (%) (Auto) 0.6 Neutrophils # (Auto) 5.6 Lymphocytes # (Auto) 0.8 Monocytes # (Auto) 0.5 Eosinophils # (Auto) 0.0 Basophils # (Auto) 0.0 CBC Comment AUTO DIFF Differential Comment AUTO DIFF CONFIRMED Platelet Estimate LOW Platelet Morphology Comment NORMAL Tear Drop Cells 1+ Ovalocytes 1+ Sodium Level 140 Chloride Level 107 Carbon Dioxide Level 23.7 Anion Gap 9 Blood Urea Nitrogen 34 Creatinine 1.99 Estimat Glomerular Filtration 35 Rate Random Glucose 132 Calcium Level 7.8 Total Bilirubin 0.6 Aspartate Amino Transf 41 (AST/SGOT) Alanine Aminotransferase LESS THAN 6 (ALT/SGPT) Alkaline Phosphatase 70 Total Protein 6.5 Albumin 2.9 Prothrombin Time 13.4 Prothromb Time International 1.2 Ratio Activated Partial 39.1 Thromboplast Time Date/Time Procedure Status Source Growth 04/30/17 16:10 Aerobic Blood Culture Received Blood Peripheral Pending 04/30/17 16:10 Anaerobic Blood Culture Received Blood Peripheral Pending 04/29/17 13:00 Gram Stain - Final Resulted Fluid Pleural Fluid 04/29/17 13:00 Body Fluid Culture - Preliminary Resulted Fluid Pleural Fluid NO GROWTH IN 48 HOURS. 04/29/17 13:00 Fungal Smear - Final Resulted Fluid Pleural Fluid NO FUNGAL ELEMENTS SEEN. 04/29/17 13:00 Fungal Culture Resulted Fluid Pleural Fluid Pending 04/29/17 13:00 Acid Fast Stain Received Fluid Pleural Fluid Pending 04/29/17 13:00 Mycobacterial Culture Received Fluid Pleural Fluid Pending Imaging Last Impressions Chest X-Ray 05/01/17 0600 Signed Impressions: Service Date/Time: Monday, May 01, 2017 03:23 - CONCLUSION: 1. Bilateral airspace disease greater in the right lung. 2. Bilateral chest tubes with questionable small basilar left pneumothorax. Charlie Claudio MD Brain MRI 04/29/17 0000 Signed Impressions: Service Date/Time: Saturday, April 29, 2017 10:08 - CONCLUSION: 1. No evidence of acute infarct, hemorrhage, mass or edema. 2. No evidence of pontine myelinolysis. 3. 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 Escobar Antony MD Chest Tube Insertion 04/28/17 1555 Signed Impressions: Service Date/Time: April 15:51 - CONCLUSION: Uncomplicated chest tube placement as above. Escobar Antony MD Chest CT 04/28/17 0000 Signed Impressions: Service Date/Time: April 15:51 - CONCLUSION: 1. Bilateral pleural effusions as described. 2. Extensive patchy consolidating infiltrates both lungs. 3. Cardiomegaly. 4. Ascites. Escobar Antony MD Abdomen X-Ray 04/28/17 0000 Signed Impressions: Service Date/Time: April 11:21 - CONCLUSION: Nonspecific bowel gas pattern with some mild gaseous distention of the colon. There is an NG tube in stomach. Srinivasan Ivory MD Upper Extremity Ultrasound 04/23/17 0000 Signed Impressions: Service Date/Time: Sunday, April 23, 2017 10:50 - CONCLUSION: DVT in the right upper extremity seen in the right basilic vein. There is also superficial thrombus in the right cephalic vein. Mushtaq Brown MD Cyst Biopsy Asp-Paracentesis US 04/21/17 0000 Signed Impressions: Service Date/Time: April 11:07 - CONCLUSION: Uncomplicated ultrasound guided paracentesis. Please note that the fluid throughout the abdomen is extremely complex with septations. This can be seen when the fluid has become infected or is complicated by hemorrhage or malignancy. Mushtaq Alexis MD Abdomen/Pelvis CT 04/20/17 0000 Signed Impressions: Service Date/Time: Thursday, April 20, 2017 13:56 - CONCLUSION: 1. Moderate volume free fluid in the abdomen and pelvis with possible associated peritoneal thickening. Thickening of the peritoneal lining can be seen with infection. 2. Large right and moderate size left pleural effusion with associated compressive atelectasis. 3. There is an umbilical hernia containing fluid and fat and fluid containing hernia superior and to the left of the umbilicus. This hernia also contains a portion of the transverse colon. 4. Nonacute findings include changes related to chronic liver disease including recanalized paraumbilical vein and bilateral gynecomastia. 5. Other nonacute findings include cholelithiasis and moderate atherosclerotic disease. Mushtaq Alexis MD Physical Exam HEENT: Normocephalic; atraumatic; no jaundice. Intubated CHEST: Diminished, + crackles. Bilateral chest tubes. CARDIAC: Irregular heart rate. ABDOMEN: Soft, distended with ascites, ventral hernia, nontender, hypoactive bowel sounds. EXTREMITIES: 2+ edema bilateral upper and lower extremity SKIN: Ecchymosis at bilateral upper and lower extremities [employer]: Sedated and intubated. (Didi Lange) Assessment and Plan Plan ASSESSMENT - Ascites/cirrhosis - small & nodular appearing liver on CT. LFTs WNL currently. Pt did admit liver problem but cannot explain further. s/p paracentesis. ammonia 18 SAAG 0.7, MELD 11, AFP 1.7 cytology pending , cx revealed staphylococcus aureus fluid analysis, wbc 26831, RBC 411, rest wnl. s/p paracentesis 04/28, cytology pending. Hep C quant 25,000, genotype 3a CT 04-20-17--> mod free fluid abd and pelvis with poss associated peritoneal thickening, pleural effusions, umbilical hernia, hernia superior and left of umbilicus containing portion of transverse colon, changes r/t chronic liver dz including recanalized paraumbilical vein, cholelithiasis - SBP- cx revealed staphylococcus aureus, abx Cefazolin peritoneal fluid growing staph. - anemia - 12.4 on admission. gradual decline . No active bleeding. normocytic. hx UGIB in 2014 10/2 portal hypertensive gastropathy. - leukocytosis - 15.2 on admission now WNL, - Hypoalbuminemia- albumin BID - Hx of hep-C- quant 22,500 - Right DVT on US, per attending - PNA, AF RVR per primary, cardiology following, ID following PLAN - Followup as outpatient for Hep C treatment - Lactulose - Xifaxan - Albumin - Await cytology from 04/28 - Diuretics if BP allows - Supportive care - Further recommendations to follow based on results of above. Patient seen and examined by Dr. Mix and myself and this note is written on his behalf. (Didi Lange) Physician Comments Patient seen and examined Agree with above Continue with current supportive care Monitor labs (Dain Mix MD) Didi Lange May 01, 2017 11:11 Dain Mix MD May 01, 2017 16:04
[2017-05-01 13:34] LABS: BLOOD GAS BASE EXCESS -1.6 mmol/L (-2-2); BLOOD GAS CARBOXYHEMOGLOBIN 2.1 % (0-4); BLOOD GAS HCO3 22 mmol/L (22-26); BLOOD GAS METHEMOGLOBIN 1.1 % (0-2); BLOOD GAS O2 HGB SATURATION 90 % (90-100); BLOOD GAS OXYGEN CONTENT 13.5 Vol % (12.0-20.0); BLOOD GAS PCO2 31 mmHg (38-42); BLOOD GAS PO2 67 mmHg (61-120); BLOOD GAS TOTAL HGB 10.5 G/DL (12.0-16.0); CRITICAL VALUE NO; DRAW SITE LT RADIAL; FIO2 40 %; NUMBER OF ARTERIAL PUNCTURES 1; OXYGEN DEVICE VENTILATOR; STAT NO; TEMP CORR TO 98.6; ULNAR PULSE PRESENT; VENT SETTINGS CPAP 5/PS 5
[2017-05-01 15:58] LABS: APTT (PATIENT) 38.7 SEC (24.3-30.1)
[2017-05-01] MEDS: METOPROLOL TARTRATE 50 MG TAB PO SCH (17:42)
[2017-05-01 23:22] LABS: APTT (PATIENT) 54.1 SEC (24.3-30.1)
[2017-05-02] VITALS (15 sets, daily range): BP systolic 120–168; BP diastolic 66–78; PULSE 70–82; RESP 18–44; TEMP 97.7–101.5; O2SAT 94–100
[2017-05-02] MEDS: METOPROLOL TARTRATE 50 MG TAB PO SCH ×3 (01:59→16:54)
[2017-05-02] MEDS: ALBUMIN HUMAN 5% 25 GM/500 ML BOTTLE IV SCH ×3 (02:00→18:07)
[2017-05-02] MEDS: RESP: ALBUTEROL 2.5 MG/IPRATROPIUM 0.5 MG NEB (SCH) NEB ×4 (04:10→20:47)
[2017-05-02] MEDS: HEPARIN-D5W 25,000 U/250 ML 250 ML IV SCH (05:56)
[2017-05-02] MEDS: ceFAZolin 2 GM PREMIX 50 ML IV SCH ×3 (05:57→20:34)
[2017-05-02 06:58] LABS: APTT (PATIENT) 63.3 SEC (24.3-30.1); INTERNATIONAL NORMALIZED RATIO 1.2 RATIO; PROTHROMBIN TIME - PATIENT 12.9 SEC (9.8-11.6)
[2017-05-02 07:04] LABS: AUTOMATED NEUTROPHIL # 4.5 TH/MM3 (1.8-7.7); BASOPHIL % 0.8 % (0.0-2.0); EOSINOPHIL # 0.1 TH/MM3 (0-0.4); EOSINOPHIL % 1.8 % (0.0-4.0); HEMATOCRIT 23.1 % (39.0-51.0); LYMPH % 8.8 % (9.0-44.0); LYMPHOCYTE # 0.5 TH/MM3 (1.0-4.8); MEAN CELL VOLUME 82.7 FL (80.0-100.0); MEAN CORPUSCULAR HEMOGLOBIN 27.7 PG (27.0-34.0); MEAN CORPUSCULAR HGB CONC 33.5 % (32.0-36.0); MONO % 6.7 % (0.0-8.0); NEUT % 81.9 % (16.0-70.0); PLATELET COUNT 81 TH/MM3 (150-450); RED BLOOD COUNT 2.79 MIL/MM3 (4.50-5.90); RED CELL DISTRIBUTION WIDTH 19.9 % (11.6-17.2); WHITE BLOOD COUNT 5.5 TH/MM3 (4.0-11.0)
[2017-05-02 07:12] LABS: HEMO FLAGS AUTO DIFF
[2017-05-02 07:18] LABS: ALT (GPT) LESS THAN 6 U/L (12-78); ANION GAP 7 MEQ/L (5-15); AST (GOT) 28 U/L (15-37); BICARBONATE 22.9 MEQ/L (21.0-32.0); BLOOD UREA NITROGEN 41 MG/DL (7-18); CHLORIDE 104 MEQ/L (98-107); GLOMERULAR FILTRATION RATE 37 ML/MIN (>89); MAGNESIUM 1.8 MG/DL (1.5-2.5); POTASSIUM 3.8 MEQ/L (3.5-5.1); SODIUM (NA) 134 MEQ/L (136-145)
[2017-05-02 07:21] LABS: ALKALINE PHOSPHATASE 60 U/L (45-117); TOTAL BILIRUBIN ADULT 0.7 MG/DL (0.2-1.0)
[2017-05-02] MEDS: CHLORHEXIDINE 0.12% (ORAL KIT) 15 ML CUP MT SCH ×2 (08:33→20:35)
[2017-05-02 08:47] LABS: SCAN/DIFF AUTO DIFF CONFIRMED
[2017-05-02] MEDS: POTASSIUM CHLORIDE 20 MEQ PWD PACKET NG SCH ×2 (09:00→20:33)
[2017-05-02] MEDS: PANTOPRAZOLE SODIUM 40 MG VIAL IV PUSH SCH (09:18)
[2017-05-02] MEDS: LACTULOSE SYRUP 20 GM/30 ML CUP PO SCH (09:18)
[2017-05-02] MEDS: RIFAXIMIN 550 MG TAB PO SCH ×2 (09:18→20:34)
[2017-05-02] MEDS: MAGNESIUM OXIDE 400 MG TAB PO SCH ×2 (10:03→20:34)
[2017-05-02] MEDS: ARTIFICIAL TEARS OPTH OINT 3.5 APPLIC/3.5 GM TUBO EACH EYE SCH ×2 (10:04→20:32)
[2017-05-02] MEDS ORDERED: BUMETANIDE INJ 1 MG/4 ML VIAL IV PUSH ONE (10:15)
--- NOTE | 2017-05-02 10:23 | HHI.CCPN ---
Subjective Remarks/Hospital Course History of Present Illness Mr. Forrest is a 56 year old male patient with cirrhosis secondary to hepatitis C and alcohol dependence, atrial fibrillation, hypertension, GERD, sleep apnea, history of central pontine myelinolysis,ascites requiring paracentesis who admitted to [facility] with on 04/20/2017 for evaluation of decreased oral intake, probable sepsis and ascites. An EKG on admission showed atrial fibrillation with RVR. His initial WBC count was 15K. Infectious disease was consulted and patient was placed on broad-spectrum antibiotic. Recently underwent paracentesis by IR on 04/21/17 with the fluid was described as loculated and septated. Fluid culture grew MSSA. 3 out of 4 blood cultures on 04/20/17 growing MSSA. For Atrial fibrillation with RVR patient was placed on Cardizem drip. Paracentesis on 04/21/2017 650 ccfluid removed. Peritoneal WBC - 06684; peritoneal RBC - 411. Patient had been receiving Ancef and vancomycin per ID recommendation Critical care medicine was consulted today a.m. as patient was increasingly short of breath and dyspneic and hypoxemic. Patient was placed on BiPAP 15/7 at 80% oxygen. I immediately evaluated the patient he appeared to be in moderate to severe distress. Bedside ultrasound showed large right-sided pleural effusion. I gave him 25 g of albumin and performed thoracentesis with 2 L of fluid removal. Chest x-ray postprocedure showed significant clearing of the right lung field but increased edema involving the left lung field. It is possible that patient has developed reexpansion pulmonary edema, I gave him 2 mg of IV bumex. Repeat Chest x-ray continues to show bilateral pulmonary edema , I have signed out this case to Dr. Bob who will most likely intubated the patient. Subjective subjective: 04/26: The patient required intubation, due to hypoxemic respiratory failure last a.m.. Patient still requires has high oxygen and ventilatory requirements,PEEP increased to 10. Aggressive diuresis continues. The patient converted to normal sinus rhythm yesterday afternoon amiodarone has been discontinued Cardizem has been discontinued. The patient continues on metoprolol twice a day. 04/27: Decreased urinary output overnight. Bumex 1 mg/hour instituted. Plan for repeat paracentesis procedure. The patient remains normal sinus rhythm. Subjective 04/28: Afebrile. Paracentesis today only 300 cc. Possibly slightly loculated. Weaning back loop diuretic in light of worsening renal function. Plan for right-sided pigtail catheter for recurrent pleural effusion. In attempt to wean off ventilator. Tolerating tube feeding at 10 cc an hour 04/29: Patient had a IR placed 10 Kazakh chest tube on the right side with 1.7 L drained. Urine output 3.3 L in 24 hours. Remains severely encephalopathic. Bedside US shows moderate L effusion 81/2: Remains intubated. Developed Afib with RVR, rate 150-160. Cardizem gtt after 20 mg IVP with no improvement. Metoprolol 5 mg IVPx1. Start Amiodarone if not improved (already on full anticoagulation. Chest x-ray today shows bilateral pigtail chest tubes in place and tiny right apical pneumothorax (R pigtail was placed by radiology). Patient remains encephalopathy despite being off sedation 05/01: Remains in normal sinus rhythm, rate controlled, on IV Cardizem and IV amiodarone. Patient remains encephalopathy, but more spontaneous eye opening. Lovenox change to IV heparin due to worsening renal failure. Also IV Bumex held due to increasing creatinine 05/02: Remains intubated, off sedation. More awake. Weakly following x4. UO 800 ml in 24 hours. Give 2 mg IV Bumex. Change Amio to PO Objective Vital Signs Date Time Temp Pulse Resp B/P Pulse Ox O2 Delivery O2 Flow Rate FiO2 05/02/17 08:25 100 40 05/02/17 08:00 99.4 79 23 126/68 Intake and Output 05/01/17 05/01/17 05/02/17 08:00 16:00 00:00 Intake Total 1828 ml 1362 ml 1389 ml Output Total 800 ml 800 ml 735 ml Balance 1028 ml 562 ml 654 ml Result Diagram: 05/02/17 0530 05/02/17 0530 Other Results Laboratory Tests Test 05/01/17 13:25 Blood Gas Puncture Site LT RADIAL Blood Gas Patient Temperature 98.6 Blood Gas HCO3 22 mmol/L (22-26) Blood Gas Base Excess -1.6 mmol/L (-2-2) Blood Gas Oxygen Saturation 90 % (90-100) Arterial Blood pH 7.46 (7.380-7.420) Arterial Blood Partial 31 mmHg (38-42) Pressure CO2 Arterial Blood Partial 67 mmHg Pressure O2 (61-120) Arterial Blood Oxygen Content 13.5 Vol % (12.0-20.0) Arterial Blood 2.1 % (0-4) Carboxyhemoglobin Arterial Blood Methemoglobin 1.1 % (0-2) Blood Gas Hemoglobin 10.5 G/DL (12.0-16.0) Oxygen Delivery Device VENTILATOR Blood Gas Ventilator Setting CPAP 5/PS 5 Blood Gas Inspired Oxygen 40 % Imaging Last Impressions Chest X-Ray 04/27/17 0600 Signed Impressions: Service Date/Time: Thursday, April 27, 2017 04:29 - CONCLUSION: Overall stable appearance of the chest. Watson Bermeo MD Upper Extremity Ultrasound 04/23/17 0000 Signed Impressions: Service Date/Time: Sunday, April 23, 2017 10:50 - CONCLUSION: DVT in the right upper extremity seen in the right basilic vein. There is also superficial thrombus in the right cephalic vein. Mushtaq Brown MD Cyst Biopsy Asp-Paracentesis US 04/21/17 0000 Signed Impressions: Service Date/Time: April 11:07 - CONCLUSION: Uncomplicated ultrasound guided paracentesis. Please note that the fluid throughout the abdomen is extremely complex with septations. This can be seen when the fluid has become infected or is complicated by hemorrhage or malignancy. Mushtaq Alexis MD Abdomen/Pelvis CT 04/20/17 0000 Signed Impressions: Service Date/Time: Thursday, April 20, 2017 13:56 - CONCLUSION: 1. Moderate volume free fluid in the abdomen and pelvis with possible associated peritoneal thickening. Thickening of the peritoneal lining can be seen with infection. 2. Large right and moderate size left pleural effusion with associated compressive atelectasis. 3. There is an umbilical hernia containing fluid and fat and fluid containing hernia superior and to the left of the umbilicus. This hernia also contains a portion of the transverse colon. 4. Nonacute findings include changes related to chronic liver disease including recanalized paraumbilical vein and bilateral gynecomastia. 5. Other nonacute findings include cholelithiasis and moderate atherosclerotic disease. Mushtaq Alexis MD Objective Remarks GENERAL: 57-year-old critically ill male, currently intubated not on sedation for >3 days SKIN: Warm/dry. No rash/will perfused. Ecchymosis bilateral upper and lower extremities HEAD: Atraumatic. Normocephalic. EYES: Pupils equal and round about 4 mm bilaterally and reactive. No scleral icterus. ENT: No nasal bleeding or discharge. Orotracheally intubated NECK: Trachea midline. No JVD. CARDIOVASCULAR: NSR. S1, S2. No S4. No rub. Systolic murmur left lower border sternum 2/6 RESPIRATORY: Air entry diminished bilateral lower lung tate. Few basilar crackles. Bilateral chest tubes in place with no air leak. 980 ML total output in 24 hours GASTROINTESTINAL: Abdomen soft, distended from ascites, large ventral hernia. Hypoactive bowel sounds. : Positive scrotal edema. Palmer catheter in place MUSCULOSKELETAL: 1+ edema bilateral upper and lower extremity/anasarca NEUROLOGICAL: Intubated and not on sedation. Spontaneous eye opening today. Follows commands x4 but very weak Procedures Paracentesis Thoracentesis Right pigtail chest tube placement Date of Insertion: Apr 25, 2017 A/P Assessment and Plan Neuro/Psych Acute metabolic encephalopathy Hx of ETOH abuse History of central pontine myelinolysis with quadriparesis --Monitor mental status closely, metabolic encephalopathy secondary to sepsis. Improvement in neurological status with spontaneous eye opening, following x4 --Currently off all sedation DCd propofol 04/29, Goal of RASS 0 --MRI brain 04/29 shows resolution of previous osmotic demyelination syndrome CVS Pulmonary edema ? Reexpansion pulmonary edema versus ARDS Atrial fibrillation with RVR -- CLovenox changed to to IV heparin on 05/01/17 due to worsening renal function -- NSR now. Off Cardizem infusion 05/01 and DC Amiodarone gtt 05/02. Start Amio 200 mg daily -- Continue metoprolol, 50mg po q8 -- 2d Echo no evidence of endocarditis, normal ejection fraction 60%. Trace MR. Moderate TR. --Currently on IV albumin 25 g every 8 hours --Bumex 2 mg IV x1 Pulmonary Acute hypoxemic respiratory failure Large right pleural effusion status post thoracentesis, R pigtail chest tube placement by IR Moderate left-sided effusion s/p L pigtail CT Tiny R apical pneumothorax, now resolved - Status post right thoracentesis and 2 L fluid removed with IV albumin infusing 04/25 - Patient developed reexpansion pulmonary edema - ACV ventilation 18/500/10/40 - s/p R pigtail CT 04/28 with IR, tiny R apical pneumothorax - s/p left chest tube placement 04/29 . Total output daily remains close to 1L - Ventilator bundle. - DuoNeb every 6 hours with albuterol aerosols every 2 when necessary - Previous tracheostomy status post decannulation 2015 - No Spontaneous breathing trials today due to HR in 150s GI Spontaneous bacterial peritonitis with MSSA Cirrhotic liver disease secondary to ETOH abuse and Hepatitis C genotype IIIa Protein calorie malnutrition/moderate Ascitesmoderate -- Prior U/S guided paracentesis 04/21/17, fluid was loculated and septated -- Exudative fluid growing MSSA indicated with peritonitis -- Antibiotics per ID -- Status post paracentesis 04/28 300 cc removed. Culture sent. Continues to drain from site -- Currently on Jevity 1.5 goal 60 cc an hour. -- Pantoprazole for GI prophylaxis -- Outpatient workup/treatment for hepatitis C genotype IIIa - [id number] [id number] per milliliter Renal Acute kidney injury -- Palmer catheter in place to monitor I/Os in critically ill patient -- Bumex 2 mg IV x1 -- May need hemodialysis for volume removal if renal function deteriorates Endocrine/FEN: Hypokalemia, Hypophosphatemia Hypo-magnesium -- Electrolyte replacement protocol Heme Anemia Coagulopathy Thrombocytopenia Right upper extremity superficial thrombosis basilic/cephalic veins -- Anemia, and coagulopathy most likely secondary to chronic liver disease / ETOH use -- Transfused blood and blood products as needed -- Heparin gtt ID: MSSA bacteremia Spontaneous bacterial peritonitis -- Pertinent cultures: - Blood 04/20: 3/4 bottles MSSA - Ascitic fluid 04/21: MSSA Antibiotics per ID.Continue Ancef Prophylaxis: GI -pantoprazole DVT - SCDs; and heparin gtt Discussed with bedside CC RN CCT 35 MIN Patient remains critically ill with severe encephalopathy respiratory failure and volume overload along with severe sepsis. Now with bilateral chest tubes and diuresis obtaining negative balance but still remains fluid overloaded. Creatinine stable Seven Landin MD May 02, 2017 10:23
--- NOTE | 2017-05-02 10:55 | RADRPT ---
EXAM DATE/TIME: 05/02/2017 10:28 [place] COMPARISON: CHEST SINGLE AP, May 01, 2017, 3:23. INDICATIONS : Respiratory distress. MEDICAL HISTORY : Pancreatitis. Arthritis, Cirrhosis, Hypertension, Seizures, Sleep apnea. SURGICAL HISTORY : None. ENCOUNTER: Subsequent ACUITY: 1 week PAIN SCORE: Non-responsive. LOCATION: Bilateral chest FINDINGS: The heart remains enlarged. His gastric tube across the GE junction. ET tube in good position. Pat nika airspace disease is seen in both lungs. Small bore chest tube is seen on the right. Second smal l bore tube is seen on the left. CONCLUSION: Supported apparatus in good position. Increasing patchy airspace disease much worse on the right than the left. Rico Segura MD FACR on May 02, 2017 at 10:48 Board Certified Radiologist. This report was verified electronically.
[2017-05-02] MEDS: AMIODARONE 200 MG TAB PO SCH (11:02)
--- NOTE | 2017-05-02 11:10 | HHI.GIFU ---
Subjective Remarks Pt resting in bed, on CPAP. Follows simple commands. Getting albumin. ( Megan Orellana) Objective Vitals I&O Vital Signs Date Time Temp Pulse Resp B/P Pulse Ox O2 Delivery O2 Flow Rate FiO2 05/02/17 08:30 40 05/02/17 08:25 100 40 05/02/17 08:00 40 05/02/17 08:00 99.4 79 23 126/68 100 05/02/17 06:00 77 05/02/17 04:05 97 40 05/02/17 04:00 99.5 70 24 125/72 100 05/02/17 04:00 40 05/02/17 04:00 70 05/02/17 02:00 75 05/02/17 01:35 99 40 05/02/17 00:00 40 05/02/17 00:00 99.9 82 44 141/78 98 05/02/17 00:00 82 05/01/17 22:00 73 05/01/17 21:20 99 40 05/01/17 20:00 40 05/01/17 20:00 78 05/01/17 20:00 99.7 74 24 130/74 99 05/01/17 18:00 73 05/01/17 16:06 96 40 05/01/17 16:00 40 05/01/17 16:00 100.5 83 31 134/68 96 05/01/17 16:00 83 05/01/17 14:00 74 05/01/17 12:00 40 05/01/17 12:00 75 05/01/17 12:00 98.9 75 37 137/72 92 I/O 05/01/17 05/01/17 05/01/17 05/02/17 05/02/17 05/02/17 07:00 15:00 23:00 07:00 15:00 23:00 Intake Total 1828 ml 1362 ml 2353 ml 500 ml Output Total 800 ml 800 ml 1255 ml Balance 1028 ml 562 ml 1098 ml 500 ml IV Total 705 ml 199 ml 452 ml Tube Feeding 423 ml 463 ml 751 ml Albumin 500 ml 500 ml 1000 ml 500 ml Other 200 ml 200 ml 150 ml Output Urine Total 400 ml 300 ml 500 ml Stool Total 100 ml 175 ml Chest Tube Drainage Total 400 ml 400 ml 580 ml # Bowel Movements 1 Laboratory Laboratory Tests Test 05/01/17 05/01/17 05/01/17 05/02/17 13:25 15:10 22:42 05:30 Blood Gas Puncture Site LT RADIAL Blood Gas Patient Temperature 98.6 Blood Gas HCO3 22 Blood Gas Base Excess -1.6 Blood Gas Oxygen Saturation 90 Arterial Blood pH 7.46 Arterial Blood Partial 31 Pressure CO2 Arterial Blood Partial 67 Pressure O2 Arterial Blood Oxygen Content 13.5 Arterial Blood 2.1 Carboxyhemoglobin Arterial Blood Methemoglobin 1.1 Blood Gas Hemoglobin 10.5 Oxygen Delivery Device VENTILATOR Blood Gas Ventilator Setting CPAP 5/PS 5 Blood Gas Inspired Oxygen 40 Activated Partial 38.7 54.1 63.3 Thromboplast Time White Blood Count 5.5 Red Blood Count 2.79 Hemoglobin 7.7 Hematocrit 23.1 Mean Corpuscular Volume 82.7 Mean Corpuscular Hemoglobin 27.7 Mean Corpuscular Hemoglobin 33.5 Concent Red Cell Distribution Width 19.9 Platelet Count 81 Mean Platelet Volume 8.8 Neutrophils (%) (Auto) 81.9 Lymphocytes (%) (Auto) 8.8 Monocytes (%) (Auto) 6.7 Eosinophils (%) (Auto) 1.8 Basophils (%) (Auto) 0.8 Neutrophils # (Auto) 4.5 Lymphocytes # (Auto) 0.5 Monocytes # (Auto) 0.4 Eosinophils # (Auto) 0.1 Basophils # (Auto) 0.0 CBC Comment AUTO DIFF Differential Comment AUTO DIFF CONFIRMED Prothrombin Time 12.9 Prothromb Time International 1.2 Ratio Sodium Level 134 Potassium Level 3.8 Chloride Level 104 Carbon Dioxide Level 22.9 Anion Gap 7 Blood Urea Nitrogen 41 Creatinine 1.88 Estimat Glomerular Filtration 37 Rate Random Glucose 115 Calcium Level 7.7 Magnesium Level 1.8 Total Bilirubin 0.7 Aspartate Amino Transf 28 (AST/SGOT) Alanine Aminotransferase LESS THAN 6 (ALT/SGPT) Alkaline Phosphatase 60 Total Protein 6.4 Albumin 3.3 Date/Time Procedure Status Source Growth 04/30/17 16:10 Aerobic Blood Culture - Preliminary Resulted Blood Peripheral NO GROWTH IN 1 DAY 04/30/17 16:10 Anaerobic Blood Culture - Preliminary Resulted Blood Peripheral NO GROWTH IN 1 DAY 04/29/17 13:00 Gram Stain - Final Resulted Fluid Pleural Fluid 04/29/17 13:00 Body Fluid Culture - Preliminary Resulted Fluid Pleural Fluid NO GROWTH IN 48 HOURS. 04/29/17 13:00 Fungal Smear - Final Resulted Fluid Pleural Fluid NO FUNGAL ELEMENTS SEEN. 04/29/17 13:00 Fungal Culture Resulted Fluid Pleural Fluid Pending 04/29/17 13:00 Acid Fast Stain - Final Resulted Fluid Pleural Fluid NO ACID FAST BACILLI SEEN 04/29/17 13:00 Mycobacterial Culture Resulted Fluid Pleural Fluid Pending Imaging Last Impressions Chest X-Ray 05/01/17 0600 Signed Impressions: Service Date/Time: Monday, May 01, 2017 03:23 - CONCLUSION: 1. Bilateral airspace disease greater in the right lung. 2. Bilateral chest tubes with questionable small basilar left pneumothorax. Charlie Claudio MD Brain MRI 04/29/17 0000 Signed Impressions: Service Date/Time: Saturday, April 29, 2017 10:08 - CONCLUSION: 1. No evidence of acute infarct, hemorrhage, mass or edema. 2. No evidence of pontine myelinolysis. 3. 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 Escobar Antony MD Chest Tube Insertion 04/28/17 1555 Signed Impressions: Service Date/Time: April 15:51 - CONCLUSION: Uncomplicated chest tube placement as above. Escobar Antony MD Chest CT 04/28/17 0000 Signed Impressions: Service Date/Time: April 15:51 - CONCLUSION: 1. Bilateral pleural effusions as described. 2. Extensive patchy consolidating infiltrates both lungs. 3. Cardiomegaly. 4. Ascites. Escobar Antony MD Abdomen X-Ray 04/28/17 0000 Signed Impressions: Service Date/Time: April 11:21 - CONCLUSION: Nonspecific bowel gas pattern with some mild gaseous distention of the colon. There is an NG tube in stomach. Srinivasan Ivory MD Upper Extremity Ultrasound 04/23/17 0000 Signed Impressions: Service Date/Time: Sunday, April 23, 2017 10:50 - CONCLUSION: DVT in the right upper extremity seen in the right basilic vein. There is also superficial thrombus in the right cephalic vein. Mushtaq Brown MD Cyst Biopsy Asp-Paracentesis US 04/21/17 0000 Signed Impressions: Service Date/Time: April 11:07 - CONCLUSION: Uncomplicated ultrasound guided paracentesis. Please note that the fluid throughout the abdomen is extremely complex with septations. This can be seen when the fluid has become infected or is complicated by hemorrhage or malignancy. Mushtaq Alexis MD Abdomen/Pelvis CT 04/20/17 0000 Signed Impressions: Service Date/Time: Thursday, April 20, 2017 13:56 - CONCLUSION: 1. Moderate volume free fluid in the abdomen and pelvis with possible associated peritoneal thickening. Thickening of the peritoneal lining can be seen with infection. 2. Large right and moderate size left pleural effusion with associated compressive atelectasis. 3. There is an umbilical hernia containing fluid and fat and fluid containing hernia superior and to the left of the umbilicus. This hernia also contains a portion of the transverse colon. 4. Nonacute findings include changes related to chronic liver disease including recanalized paraumbilical vein and bilateral gynecomastia. 5. Other nonacute findings include cholelithiasis and moderate atherosclerotic disease. Mushtaq Alexis MD Physical Exam HEENT: Normocephalic; atraumatic; no jaundice. Intubated CHEST: OETT to CPAP. Course breath sounds. Bilateral chest tubes with serous drainage. CARDIAC: Irregular heart rate. ABDOMEN: Soft, distended with ascites, large ventral hernia and smaller umbilical hernia, nontender, hypoactive bowel sounds. EXTREMITIES: 2+ edema bilateral upper and lower extremity SKIN: Ecchymosis at bilateral upper and lower extremities AURICULAR THERAPIST: Lethargic, generalized weakness, follows commands. (Megan Orellana) Assessment and Plan Plan ASSESSMENT - Ascites with SBP. S/P Cyst Biopsy Asp-Paracentesis US (04/21/17)----> Uncomplicated ultrasound guided paracentesis. Please note that the fluid throughout the abdomen is extremely complex with septations. This can be seen when the fluid has become infected or is complicated by hemorrhage or malignancy, 650cc removed. Cytology with numerous neutrophils and macrophages, negative for malignant cells. Cx with Staphylococcus aureus. Bedside paracentesis (04/28/17)----> 300cc removed, Cx with staphylococcus aureus. Ancef. Albumin. - Liver cirrhosis. Abdomen/Pelvis CT (04/20/17)----> 1. Moderate volume free fluid in the abdomen and pelvis with possible associated peritoneal thickening. Thickening of the peritoneal lining can be seen with infection. 2. Large right and moderate size left pleural effusion with associated compressive atelectasis. 3. There is an umbilical hernia containing fluid and fat and fluid containing hernia superior and to the left of the umbilicus. This hernia also contains a portion of the transverse colon. 4. Nonacute findings include changes related to chronic liver disease including recanalized paraumbilical vein and bilateral gynecomastia. 5. Other nonacute findings include cholelithiasis and moderate atherosclerotic disease. Has Hepatitis C. LFT stable. - Mild colonic ileus. Abdomen X-Ray (04/28/17)----> Nonspecific bowel gas pattern with some mild gaseous distention of the colon. There is an NG tube in stomach. Lactulose. (+) BM. More ascites on exam - Large ventral hernia, smaller umbilical hernia. Stable. - Anemia, normocytic. No active bleeding. He does have hx UGIB in 2014 r/t portal hypertensive gastropathy. HH 7.7/23.1 - Hx of hep-C- quant 22,500 - Right DVT on US, on heparin - PNA, AF RVR per primary, cardiology following, ID following PLAN - TF as tolerated - Cont. Lactulose - Cont. Xifaxan - Cont. Albumin - Cont. Albumin. - Will add diuretics when electrolytes allow - Supportive care - Further recommendations to follow based on results of above. - Patient seen and examined by Dr. Mix and myself and this note is written on his behalf. (Megan Orellana) Physician Comments Patient seen and examined Agree with above Continue with current supportive care Monitor labs Recommended nephrology evaluation for worsening renal function which is limiting our diuretic use (Dain Mix MD) Megan Orellana May 02, 2017 11:10 Dain Mix MD May 02, 2017 12:06
[2017-05-02] MEDS ORDERED: MAGNESIUM SULFATE 2 GM/NS 100 ML IV ONE ×2 (12:00)
--- NOTE | 2017-05-02 14:24 | HHI.HCPN ---
Reason for visit a. To assist with evaluation and management of symptoms including: confusion , pain, decreased appetite, dyspnea b. To assist medical decision maker(s) with: better understanding of current medical conditions; weighing benefits/burdens of medical treatment options; making medical treatment decisions. . Subjective/Interval History Mr. Forrest is a 56 year old male patient with cirrhosis, osteoarthritis, atrial fibrillation, hypertension, GERD, sleep apnea, central pontine myelinolysis, EtOH abuse and ascites requiring paracentesis admitted to [facility] ED on 04/20/2017 for management of sepsis, failure to thrive and dehydration. Status post intubation on 04/26/17 secondary to hypoxemic respiratory failure. Patient has been off sedation since 04/29, spontaneously opens eyes, follows commands intermittently. MRI brain showed no evidence of acute infarct, hemorrhage, mass or edema, resolution of previous central pontine myelinolysis. Bilateral chest tubes, right placed on 04/28, left placed on 04/29, CXR today shows increasing patchy airspace disease much worse on the right than the left. Patient has been febrile, Tmax: 101.0, no leukocytosis. Lovenox change to IV heparin on 05/01/17 due to worsening renal failure; IV Bumex was held 05/01/17 due to increasing creatinine. 05/02/17: BUN: 41, Creatinine 1.88, GFR 37. UOP 800ml in 24 hours. Palliative care continues to follow patient throughout this hospitalization to provide support, ongoing aggressive goals at this time per family. Family is attempting to get to [place], possible next week. . Advance Directives Advance Directive Specifics Documented care wishes: No documented care wishes have been completed . Objective Vital Signs Date Time Temp Pulse Resp B/P Pulse Ox O2 Delivery O2 Flow Rate FiO2 05/02/17 12:00 40 05/02/17 12:00 101.0 73 26 125/66 98 05/02/17 11:53 98 40 05/02/17 08:30 40 05/02/17 08:25 100 40 05/02/17 08:00 40 05/02/17 08:00 99.4 79 23 126/68 100 05/02/17 06:00 77 05/02/17 04:05 97 40 05/02/17 04:00 99.5 70 24 125/72 100 05/02/17 04:00 40 05/02/17 04:00 70 05/02/17 02:00 75 05/02/17 01:35 99 40 05/02/17 00:00 40 05/02/17 00:00 99.9 82 44 141/78 98 05/02/17 00:00 82 05/01/17 22:00 73 05/01/17 21:20 99 40 05/01/17 20:00 40 05/01/17 20:00 78 05/01/17 20:00 99.7 74 24 130/74 99 05/01/17 18:00 73 05/01/17 16:06 96 40 05/01/17 16:00 40 05/01/17 16:00 100.5 83 31 134/68 96 05/01/17 16:00 83 Intake & Output 05/02/17 05/02/17 06:59 18:59 Intake Total 2353 ml 500 ml Output Total 1255 ml Balance 1098 ml 500 ml IV Total 452 ml Tube Feeding 751 ml Albumin 1000 ml 500 ml Other 150 ml Output Urine Total 500 ml Stool Total 175 ml Chest Tube Drainage Total 580 ml . Physical Exam CONSTITUTIONAL/GENERAL: This is a frail, cachectic male patient who appears older than his stated age. TUBES/LINES/DRAINS:ETT, OGT, PIV x 3, nasal cannula, urinary catheter, rectal bag, soft restraints SKIN: Ecchymoses on upper extremities.. Skin temperature appropriate. Not diaphoretic. HEAD: Atraumatic. Normocephalic. EYES: Pupils equal and round and reactive. No injection or drainage. Fundi not examined. ENT: Nose without bleeding or purulent drainage. NECK: Trachea midline. CARDIOVASCULAR: Sinus rhythm.no JVD Peripheral pulses symmetric. RESPIRATORY/CHEST: Intubated on mechanical vent, SBT today. GASTROINTESTINAL: Abdomen distended, nontender. Large umbilical hernia. GENITOURINARY: Without palpable bladder distension. Palmer catheter in place. MUSCULOSKELETAL: Extremities without clubbing, cyanosis. Bilateral upper extremities edematous LYMPHATICS: No palpable cervical or supraclavicular adenopathy. NEUROLOGICAL: Patient opens eyes simultaneously, follows commands intermittently. PSYCHIATRIC: Unable to assess given patient's current clinical condition . . Diagnostic Tests Laboratory Laboratory Tests Test 04/29/17 04/30/17 04/30/17 05/01/17 16:43 04:47 16:10 04:15 Phosphorus Level 3.4 MG/DL (2.5-4.9) White Blood Count 5.9 TH/MM3 7.0 TH/MM3 (4.0-11.0) (4.0-11.0) Red Blood Count 2.92 MIL/MM3 2.98 MIL/MM3 (4.50-5.90) (4.50-5.90) Hemoglobin 8.1 GM/DL 8.3 GM/DL (13.0-17.0) (13.0-17.0) Hematocrit 23.8 % 24.7 % (39.0-51.0) (39.0-51.0) Mean Corpuscular Volume 81.4 FL 82.9 FL (80.0-100.0) (80.0-100.0) Mean Corpuscular Hemoglobin 27.9 PG 27.7 PG (27.0-34.0) (27.0-34.0) Mean Corpuscular Hemoglobin 34.3 % 33.5 % Concent (32.0-36.0) (32.0-36.0) Red Cell Distribution Width 19.6 % 19.4 % (11.6-17.2) (11.6-17.2) Platelet Count 93 TH/MM3 65 TH/MM3 (150-450) (150-450) Mean Platelet Volume 8.2 FL 8.5 FL (7.0-11.0) (7.0-11.0) Neutrophils (%) (Auto) 80.6 % 80.6 % (16.0-70.0) (16.0-70.0) Lymphocytes (%) (Auto) 11.5 % 11.2 % (9.0-44.0) (9.0-44.0) Monocytes (%) (Auto) 6.1 % (0.0-8.0) 6.9 % (0.0-8.0) Eosinophils (%) (Auto) 1.3 % (0.0-4.0) 0.7 % (0.0-4.0) Basophils (%) (Auto) 0.5 % (0.0-2.0) 0.6 % (0.0-2.0) Neutrophils # (Auto) 4.8 TH/MM3 5.6 TH/MM3 (1.8-7.7) (1.8-7.7) Lymphocytes # (Auto) 0.7 TH/MM3 0.8 TH/MM3 (1.0-4.8) (1.0-4.8) Monocytes # (Auto) 0.4 TH/MM3 0.5 TH/MM3 (0-0.9) (0-0.9) Eosinophils # (Auto) 0.1 TH/MM3 0.0 TH/MM3 (0-0.4) (0-0.4) Basophils # (Auto) 0.0 TH/MM3 0.0 TH/MM3 (0-0.2) (0-0.2) CBC Comment AUTO DIFF AUTO DIFF Differential Comment AUTO DIFF AUTO DIFF CONFIRMED CONFIRMED Platelet Estimate LOW (NORMAL) LOW (NORMAL) Platelet Morphology Comment NORMAL NORMAL (NORMAL) (NORMAL) Sodium Level 142 MEQ/L 140 MEQ/L (136-145) (136-145) Potassium Level 3.2 MEQ/L 3.5 MEQ/L 4.3 MEQ/L (3.5-5.1) (3.5-5.1) (3.5-5.1) Chloride Level 107 MEQ/L 107 MEQ/L (98-107) (98-107) Carbon Dioxide Level 23.3 MEQ/L 23.7 MEQ/L (21.0-32.0) (21.0-32.0) Anion Gap 12 MEQ/L (5-15) 9 MEQ/L (5-15) Blood Urea Nitrogen 29 MG/DL (7-18) 34 MG/DL (7-18) Creatinine 1.67 MG/DL 1.99 MG/DL (0.60-1.30) (0.60-1.30) Estimat Glomerular Filtration 42 ML/MIN (>89) 35 ML/MIN (>89) Rate Random Glucose 101 MG/DL 132 MG/DL (74-106) (74-106) Calcium Level 8.7 MG/DL 7.8 MG/DL (8.5-10.1) (8.5-10.1) Magnesium Level 1.8 MG/DL 1.9 MG/DL 1.7 MG/DL (1.5-2.5) (1.5-2.5) (1.5-2.5) Total Bilirubin 0.7 MG/DL 0.6 MG/DL (0.2-1.0) (0.2-1.0) Aspartate Amino Transf 31 U/L (15-37) 41 U/L (15-37) (AST/SGOT) Alanine Aminotransferase LESS THAN 6 LESS THAN 6 (ALT/SGPT) U/L (12-78) U/L (12-78) Alkaline Phosphatase 61 U/L (45-117) 70 U/L (45-117) Total Protein 6.6 GM/DL 6.5 GM/DL (6.4-8.2) (6.4-8.2) Albumin 3.3 GM/DL 2.9 GM/DL (3.4-5.0) (3.4-5.0) Tear Drop Cells 1+ (NORMAL) Ovalocytes 1+ (NORMAL) Test 05/01/17 05/01/17 05/01/17 05/01/17 06:51 06:57 13:25 15:10 Prothrombin Time 13.4 SEC (9.8-11.6) Prothromb Time International 1.2 RATIO Ratio Activated Partial 39.1 SEC 38.7 SEC Thromboplast Time (24.3-30.1) (24.3-30.1) White Blood Count 6.5 TH/MM3 (4.0-11.0) Red Blood Count 3.04 MIL/MM3 (4.50-5.90) Hemoglobin 8.3 GM/DL (13.0-17.0) Hematocrit 25.3 % (39.0-51.0) Mean Corpuscular Volume 83.2 FL (80.0-100.0) Mean Corpuscular Hemoglobin 27.1 PG (27.0-34.0) Mean Corpuscular Hemoglobin 32.6 % Concent (32.0-36.0) Red Cell Distribution Width 19.4 % (11.6-17.2) Platelet Count 69 TH/MM3 (150-450) Mean Platelet Volume 7.9 FL (7.0-11.0) Blood Gas Puncture Site LT RADIAL Blood Gas Patient Temperature 98.6 Blood Gas HCO3 22 mmol/L (22-26) Blood Gas Base Excess -1.6 mmol/L (-2-2) Blood Gas Oxygen Saturation 90 % (90-100) Arterial Blood pH 7.46 (7.380-7.420) Arterial Blood Partial 31 mmHg (38-42) Pressure CO2 Arterial Blood Partial 67 mmHg Pressure O2 (61-120) Arterial Blood Oxygen Content 13.5 Vol % (12.0-20.0) Arterial Blood 2.1 % (0-4) Carboxyhemoglobin Arterial Blood Methemoglobin 1.1 % (0-2) Blood Gas Hemoglobin 10.5 G/DL (12.0-16.0) Oxygen Delivery Device VENTILATOR Blood Gas Ventilator Setting CPAP 5/PS 5 Blood Gas Inspired Oxygen 40 % Test 05/01/17 05/02/17 22:42 05:30 Activated Partial 54.1 SEC 63.3 SEC Thromboplast Time (24.3-30.1) (24.3-30.1) White Blood Count 5.5 TH/MM3 (4.0-11.0) Red Blood Count 2.79 MIL/MM3 (4.50-5.90) Hemoglobin 7.7 GM/DL (13.0-17.0) Hematocrit 23.1 % (39.0-51.0) Mean Corpuscular Volume 82.7 FL (80.0-100.0) Mean Corpuscular Hemoglobin 27.7 PG (27.0-34.0) Mean Corpuscular Hemoglobin 33.5 % Concent (32.0-36.0) Red Cell Distribution Width 19.9 % (11.6-17.2) Platelet Count 81 TH/MM3 (150-450) Mean Platelet Volume 8.8 FL (7.0-11.0) Neutrophils (%) (Auto) 81.9 % (16.0-70.0) Lymphocytes (%) (Auto) 8.8 % (9.0-44.0) Monocytes (%) (Auto) 6.7 % (0.0-8.0) Eosinophils (%) (Auto) 1.8 % (0.0-4.0) Basophils (%) (Auto) 0.8 % (0.0-2.0) Neutrophils # (Auto) 4.5 TH/MM3 (1.8-7.7) Lymphocytes # (Auto) 0.5 TH/MM3 (1.0-4.8) Monocytes # (Auto) 0.4 TH/MM3 (0-0.9) Eosinophils # (Auto) 0.1 TH/MM3 (0-0.4) Basophils # (Auto) 0.0 TH/MM3 (0-0.2) CBC Comment AUTO DIFF Differential Comment AUTO DIFF CONFIRMED Prothrombin Time 12.9 SEC (9.8-11.6) Prothromb Time International 1.2 RATIO Ratio Sodium Level 134 MEQ/L (136-145) Potassium Level 3.8 MEQ/L (3.5-5.1) Chloride Level 104 MEQ/L (98-107) Carbon Dioxide Level 22.9 MEQ/L (21.0-32.0) Anion Gap 7 MEQ/L (5-15) Blood Urea Nitrogen 41 MG/DL (7-18) Creatinine 1.88 MG/DL (0.60-1.30) Estimat Glomerular Filtration 37 ML/MIN (>89) Rate Random Glucose 115 MG/DL (74-106) Calcium Level 7.7 MG/DL (8.5-10.1) Magnesium Level 1.8 MG/DL (1.5-2.5) Total Bilirubin 0.7 MG/DL (0.2-1.0) Aspartate Amino Transf 28 U/L (15-37) (AST/SGOT) Alanine Aminotransferase LESS THAN 6 (ALT/SGPT) U/L (12-78) Alkaline Phosphatase 60 U/L (45-117) Total Protein 6.4 GM/DL (6.4-8.2) Albumin 3.3 GM/DL (3.4-5.0) . Result Diagram: 05/02/17 0530 05/02/17 0530 Microbiology Microbiology Date/Time Procedure Status Source Growth 04/30/17 16:00 Aerobic Blood Culture - Preliminary Resulted Blood Peripheral NO GROWTH IN 2 DAYS 04/30/17 16:00 Anaerobic Blood Culture - Preliminary Resulted Blood Peripheral NO GROWTH IN 2 DAYS 04/30/17 16:10 Aerobic Blood Culture - Preliminary Resulted Blood Peripheral NO GROWTH IN 2 DAYS 04/30/17 16:10 Anaerobic Blood Culture - Preliminary Resulted Blood Peripheral NO GROWTH IN 2 DAYS Imaging Last 72 hours Impressions Chest X-Ray 05/02/17 0000 Signed Impressions: Service Date/Time: Tuesday, May 02, 2017 10:28 - CONCLUSION: Supported apparatus in good position. Increasing patchy airspace disease much worse on the right than the left. Rico Segura MD FACR Chest X-Ray 05/01/17 0600 Signed Impressions: Service Date/Time: Monday, May 01, 2017 03:23 - CONCLUSION: 1. Bilateral airspace disease greater in the right lung. 2. Bilateral chest tubes with questionable small basilar left pneumothorax. Charlie Claudio MD Chest X-Ray 04/30/17 0600 Signed Impressions: Service Date/Time: Sunday, April 30, 2017 03:45 - CONCLUSION: 1. Tiny right apical pneumothorax. 2. No pneumothorax on the left. 3. Minimal bilateral airspace disease. Charlie Claudio MD . Procedures 04/21/17: Ultrasound guided paracentesis 04/28/17: Right chest tube 04/28/17: Ultrasound guided paracentesis 04/29/17: Left chest tube . Assessment and Plan Disease Oriented Problem List: (1) Diarrhea (2) HTN (hypertension) (3) Atrial fibrillation with RVR (4) Encephalopathy (5) Sepsis (6) Ascites (7) Bacterial peritonitis (8) Pneumonia (9) Pleural effusion (10) Alcohol abuse (11) Wernicke-Korsakoff syndrome (alcoholic) Symptom Scale: (1) Decrease in appetite (2) Pain (3) Dyspnea (4) Confusion Pertinent Non-Medical Issues Psychosocial: Patient is originally from [place], [place]. His parents are ; he has/had 3 siblings (Anay, Josefa, Tigre). He moved to [place] in 2012. Patient is . Patient has 1 son, Rickey malone, who is the healthcare proxy decision-make Spiritual: Raised restorationist Legal: Per [place] statutes, in the absence of written advanced directives healthcare proxy decision-making falls to the patient's son. Ethical issues impacting care: No known ethical issues impacting care. . Important Contacts Rickey Forrest III, son: [phone] (Son DOES WISH to serve has health care proxy). Anay Blount, sister: ([place]) [phone] Josefa Driver, sister: [phone] Tigre Forrest, sister: [phone] . Prognosis Patient is a 57 year old male patient with a history of liver disease with ascites requiring paracentesis secondary to EtOH abuse. Currently admitted with sepsis/bacterial peritonitis/pneumonia with pleural effusions, encephalopathy and atrial fibrillation with RVR. S/P intubation, chest tubes x 2 , and multiple paracenteses. Patient is extremely debilitated. Prognosis is poor. . Code Status: Full Code Plan * FULL CODE * Decision-making: Per [place] statutes, in the absence of written advanced directives healthcare proxy decision-making falls to the patient's son Rickey malone. Risa Pena is NOT the patient's and should not be included in any medical decision making. HCP: Rickey Forrest III, son: [phone] * Goals: Aggressive goals * Attempted to contact patient's son to provide a clinical update on the patient. Message left on patient's voicemail. Awaiting return phone call. * Symptom management-decreased appetite: Albumin improving, but still low at 3.3. Patient is currently on TF. BMI 20.5. Dietary following. * Symptom managementdyspnea: Status post intubation on 04/26/17 secondary to hypoxemic respiratory failure. SBT today. S/P chest tubes x 2. * Palliative care will continue to follow this patient throughout his hospitalization to establish trust, assist with symptom management and clarification of medical treatment goals. . Attestation To help prompt me to consider important information that might be impacting today's encounter and assessment, information from prior notes written by myself or my colleagues may have been "brought forward" into today's note. My signature on this note, however, is an attestation that I personally performed the exam, history, and/or decision-making noted today, and, unless otherwise indicated, the interactions with patient, family, and staff as well as the review of records all occurred today. I also attest that the listed assessment and stated plan reflect my best clinical judgment today based on the combination of historical information, prior notes, and today's exam/ interactions. When time spent is documented, it refers only to time spent today by the signer, or if indicated, combined time spent today by collaborating physician/nurse practitioner. Adina Gonzalez May 02, 2017 14:24 Adina Gonzalez May 02, 2017 14:24
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
[2017-05-02 17:59] LABS: BACTERIA, URINE RARE /hpf; BLOOD, URINE SMALL (NEG); GLUCOSE,URINE NEG (NEG); KETONE, URINE NEG (NEG); MUCUS URINE FEW /lpf (OCC); NITRITE,URINE NEG (NEG); SQUAMOUS EPITHELIAL CELL URINE 1 /hpf (0-5); TRANSITIONAL EPI CELLS, URINE 1 /hpf; URINE COLOR YELLOW (YELLW/STRAW)
[2017-05-02 18:00] LABS: COMMENT (UR) CATH-CULTURE IND; CULTURE IF INDICATED CATH CULTURE IND
[2017-05-02] MEDS ORDERED: ACETAMINOPHEN 325 MG TAB PO PRN (21:00)
[2017-05-03] VITALS (16 sets, daily range): BP systolic 123–168; BP diastolic 60–94; PULSE 59–137; RESP 22–29; TEMP 98.6–100.5; O2SAT 97–100
[2017-05-03] MEDS: ALBUMIN HUMAN 5% 25 GM/500 ML BOTTLE IV SCH ×3 (01:20→18:03)
[2017-05-03] MEDS: METOPROLOL TARTRATE 50 MG TAB PO SCH ×3 (01:20→16:47)
[2017-05-03] MEDS: HEPARIN-D5W 25,000 U/250 ML 250 ML IV SCH (02:30)
[2017-05-03] MEDS: RESP: ALBUTEROL 2.5 MG/IPRATROPIUM 0.5 MG NEB (SCH) NEB ×4 (04:16→21:24)
--- NOTE | 2017-05-03 04:55 | RADRPT ---
EXAM DATE/TIME: 05/03/2017 03:35 [facility] COMPARISON: CHEST SINGLE AP, May 02, 2017, 10:28. INDICATIONS : Short of breath. MEDICAL HISTORY : Pancreatitis. Arthritis, Cirrhosis, Hypertension, Seizures, Sleep apnea. SURGICAL HISTORY : None. ENCOUNTER: Subsequent ACUITY: 2 weeks PAIN SCORE: 0/10 LOCATION: Bilateral chest FINDINGS: Endotracheal tube tip 2.5 cm above the adelita. Gastric tube traverses [id number]. Pigtail cathet ers projects over the lower chest bilateral. No evidence of pneumothorax. There is persisting conso lidation in the right lower lung and patchy infiltrates in the left lower lung similar in size and di stribution to prior. CONCLUSION: Bilateral infiltrates, right greater than left, stable. Kwaku Haro MD on May 03, 2017 at 4:49 Board Certified Radiologist. This report was verified electronically.
[2017-05-03 06:23] LABS: AUTOMATED NEUTROPHIL # 4.2 TH/MM3 (1.8-7.7); BASOPHIL % 0.9 % (0.0-2.0); EOSINOPHIL # 0.1 TH/MM3 (0-0.4); EOSINOPHIL % 2.3 % (0.0-4.0); HEMATOCRIT 21.3 % (39.0-51.0); LYMPH % 8.1 % (9.0-44.0); LYMPHOCYTE # 0.4 TH/MM3 (1.0-4.8); MEAN CELL VOLUME 83.4 FL (80.0-100.0); MEAN CORPUSCULAR HGB CONC 32.4 % (32.0-36.0); MONO % 9.1 % (0.0-8.0); NEUT % 79.6 % (16.0-70.0); PLATELET COUNT 93 TH/MM3 (150-450); RED BLOOD COUNT 2.56 MIL/MM3 (4.50-5.90); RED CELL DISTRIBUTION WIDTH 19.8 % (11.6-17.2); WHITE BLOOD COUNT 5.3 TH/MM3 (4.0-11.0)
[2017-05-03 06:29] LABS: HEMO FLAGS AUTO DIFF
[2017-05-03 07:04] LABS: ALKALINE PHOSPHATASE 55 U/L (45-117); ALT (GPT) LESS THAN 6 U/L (12-78); ANION GAP 9 MEQ/L (5-15); AST (GOT) 25 U/L (15-37); BICARBONATE 22.4 MEQ/L (21.0-32.0); BLOOD UREA NITROGEN 52 MG/DL (7-18); CHLORIDE 103 MEQ/L (98-107); GLOMERULAR FILTRATION RATE 29 ML/MIN (>89); MAGNESIUM 2.2 MG/DL (1.5-2.5); POTASSIUM 3.5 MEQ/L (3.5-5.1); SODIUM (NA) 134 MEQ/L (136-145); TOTAL BILIRUBIN ADULT 0.6 MG/DL (0.2-1.0)
[2017-05-03] MEDS: ceFAZolin 2 GM PREMIX 50 ML IV SCH (07:20)
[2017-05-03] MEDS: LACTULOSE SYRUP 20 GM/30 ML CUP PO SCH (07:40)
[2017-05-03] MEDS: RIFAXIMIN 550 MG TAB PO SCH ×2 (07:41→20:26)
[2017-05-03] MEDS: PANTOPRAZOLE SODIUM 40 MG VIAL IV PUSH SCH (07:41)
[2017-05-03] MEDS: AMIODARONE 200 MG TAB PO SCH (07:42)
[2017-05-03] MEDS: MAGNESIUM OXIDE 400 MG TAB PO SCH ×2 (07:42→20:26)
[2017-05-03] MEDS: POTASSIUM CHLORIDE 20 MEQ PWD PACKET NG SCH ×2 (07:42→20:26)
[2017-05-03] MEDS: CHLORHEXIDINE 0.12% (ORAL KIT) 15 ML CUP MT SCH ×2 (07:44→20:24)
[2017-05-03 08:10] LABS: APTT (PATIENT) 59.5 SEC (24.3-30.1)
[2017-05-03] MEDS ORDERED: VANCOMYCIN INJ 1,000 MG in SODIUM CHLOR 0.9% 250 ML INJ 250 ML IV ONE (08:15)
[2017-05-03] MEDS ORDERED: CEFEPIME INJ 1,000 MG in SODIUM CHLORIDE 0.9% INJ 100 ML IV ONE (08:15)
--- NOTE | 2017-05-03 08:29 | HHI.CCPN ---
Subjective Remarks/Hospital Course History of Present Illness Mr. Forrest is a 56 year old male patient with cirrhosis secondary to hepatitis C and alcohol dependence, atrial fibrillation, hypertension, GERD, sleep apnea, history of central pontine myelinolysis,ascites requiring paracentesis who admitted to [facility] with on 04/20/2017 for evaluation of decreased oral intake, probable sepsis and ascites. An EKG on admission showed atrial fibrillation with RVR. His initial WBC count was 15K. Infectious disease was consulted and patient was placed on broad-spectrum antibiotic. Recently underwent paracentesis by IR on 04/21/17 with the fluid was described as loculated and septated. Fluid culture grew MSSA. 3 out of 4 blood cultures on 04/20/17 growing MSSA. For Atrial fibrillation with RVR patient was placed on Cardizem drip. Paracentesis on 04/21/2017 650 ccfluid removed. Peritoneal WBC - 53623; peritoneal RBC - 411. Patient had been receiving Ancef and vancomycin per ID recommendation Critical care medicine was consulted today a.m. as patient was increasingly short of breath and dyspneic and hypoxemic. Patient was placed on BiPAP 15/7 at 80% oxygen. I immediately evaluated the patient he appeared to be in moderate to severe distress. Bedside ultrasound showed large right-sided pleural effusion. I gave him 25 g of albumin and performed thoracentesis with 2 L of fluid removal. Chest x-ray postprocedure showed significant clearing of the right lung field but increased edema involving the left lung field. It is possible that patient has developed reexpansion pulmonary edema, I gave him 2 mg of IV bumex. Repeat Chest x-ray continues to show bilateral pulmonary edema , I have signed out this case to Dr. Bob who will most likely intubated the patient. Subjective subjective: 04/26: The patient required intubation, due to hypoxemic respiratory failure last a.m.. Patient still requires has high oxygen and ventilatory requirements,PEEP increased to 10. Aggressive diuresis continues. The patient converted to normal sinus rhythm yesterday afternoon amiodarone has been discontinued Cardizem has been discontinued. The patient continues on metoprolol twice a day. 04/27: Decreased urinary output overnight. Bumex 1 mg/hour instituted. Plan for repeat paracentesis procedure. The patient remains normal sinus rhythm. 04/28: Afebrile. Paracentesis today only 300 cc. Possibly slightly loculated. Weaning back loop diuretic in light of worsening renal function. Plan for right-sided pigtail catheter for recurrent pleural effusion. In attempt to wean off ventilator. Tolerating tube feeding at 10 cc an hour 04/29: Patient had a IR placed 10 Japanese chest tube on the right side with 1.7 L drained. Urine output 3.3 L in 24 hours. Remains severely encephalopathic. Bedside US shows moderate L effusion 81/2: Remains intubated. Developed Afib with RVR, rate 150-160. Cardizem gtt after 20 mg IVP with no improvement. Metoprolol 5 mg IVPx1. Start Amiodarone if not improved (already on full anticoagulation. Chest x-ray today shows bilateral pigtail chest tubes in place and tiny right apical pneumothorax (R pigtail was placed by radiology). Patient remains encephalopathy despite being off sedation 05/01: Remains in normal sinus rhythm, rate controlled, on IV Cardizem and IV amiodarone. Patient remains encephalopathy, but more spontaneous eye opening. Lovenox change to IV heparin due to worsening renal failure. Also IV Bumex held due to increasing creatinine 05/02: Remains intubated, off sedation. More awake. Weakly following x4. UO 800 ml in 24 hours. Give 2 mg IV Bumex. Change Amio to PO Subjective 05/03: Continues to spike high fever 102.5. CXR despite bilateral chest tube and 1.6L output in 24 hours shows R> L consolidation/effusion. Creat worsening. Will hold Diuretics. Send sputum and blood cultures, give single dose of vanc and cefepime. D/W Dr. Gonzalez. Hb 6.9, will give 1U PRBC. Platelet count steadily improving 94 today Objective Vital Signs Date Time Temp Pulse Resp B/P Pulse Ox O2 Delivery O2 Flow Rate FiO2 05/03/17 08:04 40 05/03/17 07:43 100 05/03/17 06:00 74 05/03/17 04:00 99.4 25 126/69 Intake and Output 05/02/17 05/02/17 05/03/17 08:00 16:00 00:00 Intake Total 964 ml 1324 ml 220 ml Output Total 520 ml 2560 ml 785 ml Balance 444 ml -1236 ml -565 ml Result Diagram: 05/03/17 0426 05/03/17 0426 Imaging Last Impressions Chest X-Ray 04/27/17 0600 Signed Impressions: Service Date/Time: Thursday, April 27, 2017 04:29 - CONCLUSION: Overall stable appearance of the chest. Watson Bermeo MD Upper Extremity Ultrasound 04/23/17 0000 Signed Impressions: Service Date/Time: Sunday, April 23, 2017 10:50 - CONCLUSION: DVT in the right upper extremity seen in the right basilic vein. There is also superficial thrombus in the right cephalic vein. Mushtaq Brown MD Cyst Biopsy Asp-Paracentesis US 04/21/17 0000 Signed Impressions: Service Date/Time: April 11:07 - CONCLUSION: Uncomplicated ultrasound guided paracentesis. Please note that the fluid throughout the abdomen is extremely complex with septations. This can be seen when the fluid has become infected or is complicated by hemorrhage or malignancy. Mushtaq Alexis MD Abdomen/Pelvis CT 04/20/17 0000 Signed Impressions: Service Date/Time: Thursday, April 20, 2017 13:56 - CONCLUSION: 1. Moderate volume free fluid in the abdomen and pelvis with possible associated peritoneal thickening. Thickening of the peritoneal lining can be seen with infection. 2. Large right and moderate size left pleural effusion with associated compressive atelectasis. 3. There is an umbilical hernia containing fluid and fat and fluid containing hernia superior and to the left of the umbilicus. This hernia also contains a portion of the transverse colon. 4. Nonacute findings include changes related to chronic liver disease including recanalized paraumbilical vein and bilateral gynecomastia. 5. Other nonacute findings include cholelithiasis and moderate atherosclerotic disease. Mushtaq Alexis MD Objective Remarks GENERAL: 57-year-old critically ill male, currently intubated not on sedation for >4 days SKIN: Warm/dry. No rash/well perfused. Ecchymosis bilateral upper and lower extremities HEAD: Atraumatic. Normocephalic. EYES: Pupils equal and round about 4 mm bilaterally and reactive. No scleral icterus. ENT: No nasal bleeding or discharge. Orotracheally intubated NECK: Trachea midline. No JVD. CARDIOVASCULAR: NSR. S1, S2. No S4. No rub. Systolic murmur left lower border sternum 2/6 RESPIRATORY: Air entry diminished bilateral lower lung tate. Few basilar crackles. Bilateral chest tubes in place with no air leak. 1600 ML total output in 24 hours GASTROINTESTINAL: Abdomen soft, distended from ascites, large ventral hernia. Hypoactive bowel sounds. : Positive scrotal edema. Palmer catheter in place MUSCULOSKELETAL: 1+ edema bilateral upper and lower extremity/anasarca NEUROLOGICAL: Intubated and not on sedation. Spontaneous eye opening today. Follows commands x4 but very weak Procedures Paracentesis Thoracentesis Right pigtail chest tube placement Urinary Catheter: Yes Assessment to: Continue Date of Insertion: Apr 25, 2017 A/P Assessment and Plan Neuro/Psych Acute metabolic encephalopathy Hx of ETOH abuse History of central pontine myelinolysis with quadriparesis --Monitor mental status closely, metabolic encephalopathy secondary to sepsis. Improvement in neurological status with spontaneous eye opening, following x4 weakly --Currently off all sedation DCd propofol 04/29, Goal of RASS 0 --MRI brain 04/29 shows resolution of previous osmotic demyelination syndrome CVS Pulmonary edema ? Reexpansion pulmonary edema versus ARDS Atrial fibrillation with RVR -- Lovenox changed to to IV heparin on 05/01/17 due to worsening renal function -- NSR now. Off Cardizem infusion 05/01 and DCd Amiodarone gtt 05/02. Started Amio 200 mg daily 05/02- monitor liver function (Amiodarone used due to refractory RVR) -- Continue metoprolol, 50mg po q8 -- 2d Echo no evidence of endocarditis, normal ejection fraction 60%. Trace MR. Moderate TR. --Currently on IV albumin 25 g every 8 hours Pulmonary Acute hypoxemic respiratory failure Bilateral pigtail chest tubes for large pleural effusions Probable HCAP Tiny R apical pneumothorax, now resolved - Status post right thoracentesis and 2 L fluid removed with IV albumin infusing 04/25 - Patient developed reexpansion pulmonary edema after thoracentesis - Intubated 04/25 ACV ventilation 18/500/10/40 - s/p R pigtail CT 04/28 with IR, tiny R apical pneumothorax-now resolved - s/p left chest tube placement 04/29 . Total output 1.6L over 24 hours - Ventilator bundle. - DuoNeb every 6 hours with albuterol aerosols every 2 when necessary - Previous tracheostomy status post decannulation 2016 - No Spontaneous breathing trials today again - Sputum and blood cx today GI Spontaneous bacterial peritonitis with MSSA Cirrhotic liver disease secondary to ETOH abuse and Hepatitis C genotype IIIa Protein calorie malnutrition/moderate Ascitesmoderate -- Prior U/S guided paracentesis 04/21/17, fluid was loculated and septated -- Exudative fluid growing MSSA indicated with peritonitis -- Antibiotics per ID -- Status post paracentesis 04/28 300 cc removed. Culture sent. Continues to drain from site -- Currently on Jevity 1.5 goal 60 cc an hour. -- Pantoprazole for GI prophylaxis -- Outpatient workup/treatment for hepatitis C genotype IIIa - [id number] iu per milliliter Renal Acute kidney injury -- Palmer catheter in place to monitor I/Os in critically ill patient -- Bumex 2 mg IV x1 05/02. -- May need hemodialysis for volume removal if renal function deteriorates -- Creat 2.5 today 05/03. If worsening consult nephrology Endocrine/FEN: Hypokalemia, Hypophosphatemia Hypo-magnesium -- Electrolyte replacement protocol Heme Anemia Coagulopathy Thrombocytopenia Right upper extremity superficial thrombosis basilic/cephalic veins -- Anemia, and coagulopathy most likely secondary to chronic liver disease / ETOH use, severe sepsis and consumptive from thrombophlebitis -- Transfuse 1U PRBC today. Check stool for Hemoccult. Platelet count improving -- Heparin gtt ID: MSSA bacteremia Spontaneous bacterial peritonitis -- Pertinent cultures: - Blood 04/20: 3/4 bottles MSSA - Ascitic fluid 04/21: MSSA Antibiotics per ID.Continue Ancef Send blood and sputum culture. Single dos of vanc and cefepime 05/03 while waiting for cultures. D/W Dr. Gonzalez Prophylaxis: GI -pantoprazole DVT - SCDs; and heparin gtt Discussed with bedside CC RN CCT 35 MIN Patient remains critically ill with severe encephalopathy respiratory failure and volume overload along with severe sepsis. Now with bilateral chest tubes and diuresis obtaining negative balance but still remains fluid overloaded. Creatinine worsening with diuresis. May need hemodialysis for fluid removal Seven Landin MD May 03, 2017 08:29
[2017-05-03] MEDS: ARTIFICIAL TEARS OPTH OINT 3.5 APPLIC/3.5 GM TUBO EACH EYE SCH ×2 (09:10→20:25)
[2017-05-03 09:13] LABS: BANDS 19 % (0-6); EOSINOPHILS 2 % (0-4); NEUTROPHIL # MANUAL DIFF 4.7 TH/MM3 (1.8-7.7); POLYS (SEG NEUTROPHILS) 69 % (16-70); WBC DIFF SAMPLE 100
[2017-05-03 09:14] LABS: OVALOCYTES 2+ (NORMAL); PLATELET ESTIMATE SMEAR LOW (NORMAL); PLATELET MORPHOLOGY NORMAL (NORMAL); SCAN/DIFF FINAL DIFF MANUAL; TEARDROP RBCS 1+ (NORMAL)
[2017-05-03 09:18] LABS: INTERNATIONAL NORMALIZED RATIO 1.2 RATIO; PROTHROMBIN TIME - PATIENT 13.3 SEC (9.8-11.6)
--- NOTE | 2017-05-03 09:35 | RADRPT ---
EXAM DATE/TIME: 05/02/2017 22:03 [place] COMPARISON: No previous studies available for comparison. INDICATIONS : Bilateral leg swelling. MEDICAL HISTORY : Arthritis. Cirrhosis. Seizures. ETOH withdrawal. Afib. HTN. Sleep apnea. SURGICAL HISTORY : Tracheostomy. Gtube placed and removed. Paracentesis. ENCOUNTER: Subsequent ACUITY: 3 days PAIN SCORE: Non-responsive LOCATION: Bilateral legs. TECHNIQUE: Venous ultrasound of the left and right leg was performed from the inguinal ligament to the proximal calf. Real-time, color Doppler and spectral tracing, compression and augmentation techniques were us ed. FINDINGS: RIGHT LEG: There is normal compressibility of the deep venous system from the inguinal region to the proximal ca lf. No echogenic clot is seen in the lumen of the common femoral, femoral, popliteal, and posterior tibial veins. There is a normal response of the venous system to proximal and distal augmentation an d respiration. LEFT LEG: There is normal compressibility of the deep venous system from the inguinal region to the proximal ca lf. No echogenic clot is seen in the lumen of the common femoral, femoral, popliteal, and posterior tibial veins. There is a normal response of the venous system to proximal and distal augmentation an d respiration. CONCLUSION: The study is negative for deep venous thrombosis bilateral lower extremity. Kwaku Haro MD on May 03, 2017 at 0:25 Board Certified Radiologist. This report was verified electronically.
--- NOTE | 2017-05-03 09:49 | MB ---
cc: NEGRITO KRUSE M.D. DATE OF CONSULTATION 05/02/2017 REASON FOR CONSULTATION Consult requested by Dr. Lois Gonzalez for evaluation of thrombocytopenia. HISTORY OF PRESENT ILLNESS Rickey is a 57 year-old male. He has multiple medical problems. He has a history of arthritis, atrial fibrillation, hypertension, gastroesophageal reflux disease and central pontine myelinolysis. He also has a history of alcoholism, hepatitis C, and liver cirrhosis. The patient has had previously multiple paracentesis for his end-stage liver disease. The patient was brought into the emergency room on April 20 by his significant other stating that he was not eating for a couple of days and noticed increased abdominal distension with diarrhea. In the emergency room, the patient was found to be in rapid atrial fibrillation. The patient was admitted to the hospital for sepsis, possible subacute peritonitis. The patient was started on the antibiotics. Multiple consultations had been obtained including director of child welfare services, palliative care, infectious disease and critical care. The patient decompensated five days being in the hospital and on April 25 he went into respiratory failure and underwent intubation with ventilator support. The patient has been treated with the antibiotic for sepsis. The patient's blood culture and peritoneal fluid came back positive for methicillin-sensitive staph aureus. The patient has been Ancef. The patient's platelet count had dropped to 81,000. I have been asked to see the patient for evaluation of thrombocytopenia. The patient is on the ventilator and unable to give any history. History is obtained through review of the records. The patient is awake, alert and according to the nurse most likely the patient would be extubated soon. The registered nurse denies any obvious bleeding from any site. REVIEW OF SYSTEMS Not possible as the patient is on ventilator. PAST MEDICAL HISTORY 1. Alcoholism 2. Hepatitis C 3. Cirrhosis of the liver 4. Gastroesophageal reflux disease 5. Arthritis 6. Atrial fibrillation 7. Hypertension 8. Alcoholic withdrawal seizures 9. Central pontine myelinosis PAST SURGICAL HISTORY 1. Tracheostomy 2. G-tube placement last year. ALLERGIES None MEDICATIONS Please see EMR. FAMILY HISTORY Unable to obtain. SOCIAL HISTORY Unable to obtain. PHYSICAL EXAM This is a well-developed, chronically ill appearing white male who is on the ventilator, intubated, but not sedated. VITAL SIGNS: Temperature 101.3, heart rate is 79, blood pressure 128/66, O2 saturation 99%. HEENT: PERRLA, EOMI, ET-tube noted in the mouth. NECK: No lymphadenopathy noted. LUNGS: Clear. No wheezing, rhonchi or rales. HEART: Regular rate rhythm. ABDOMEN: Distended, ascites noted. EXTREMITIES: No pedal edema. NEUROLOGIC: The patient is on the ventilator, awake. SKIN: No significant lesions noted. ASSESSMENT 1. Thrombocytopenia. This is multifactorial most likely due to staph aureus sepsis and/or antibiotic cephazolin. I doubt HIT. 2. Hepatitis C 3. Cirrhosis of the liver with ascites. 4. Methicillin-sensitive staph aureus sepsis as well as subacute bacterial peritonitis. PLAN I have reviewed his available records. The patient was admitted to the hospital on April 20 with a normal platelet count of 256. Five days later, his platelet count dropped to 136. On April 27, the platelet count was reported to be 19, however, it was repeated within two hours and the platelet count was 83, therefore the platelet count of 19 was incorrect. The patient has not required any blood transfusion support including platelets or packed RBC's. His platelet count subsequently came up to 93 on April 30 just two days ago, however, yesterday, his platelet count dropped to 65 and was repeated and again came back at 69. Today his platelet count is 81. The patient is completely asymptomatic from the thrombocytopenia. He is not bleeding. Dr. Neyda Gonzalez is wondering whether his thrombocytopenia could be from an HIT. I strongly doubted that it had anything to do with HIT. Nevertheless, I will check the HIT antibodies. The most likely cause of thrombocytopenia is methicillin-sensitive staph aureus sepsis and subacute bacterial peritonitis. Once the infection clears up, then I expect his platelet count to improve. Also, cephazolin can also cause severe thrombocytopenia. I will leave it up to the infectious disease team to find the alternative of cephazolin. We will continue to monitor his CBC carefully. The patient also has hepatitis C. The genotype is 3A, hepatitis quantitative viral load is 22,500 and the PCR log is 4.35. Certainly, hepatitis C can also cause thrombocytopenia, but the patient was admitted with a normal platelet count. The patient also had a CT scan of the abdomen and pelvis on the day of admission on April 20 which does not show any evidence of splenomegaly. The liver is normal in density, but is small in size with mildly nodular contour. No focal lesion was noted in this noncontrast examination. An HIT test has been ordered, but I doubted that thrombocytopenia is due to the HIT. The most likely cause is antibiotic cephazolin and/or staph sepsis. I have discussed the case with the patient's RN. No family members are present at this time to discuss with them regarding the thrombocytopenia. Thank you for asking my opinion. MD JEFFERY Waterman/DAVID /10:12 PM /9:20 AM [place]
--- NOTE | 2017-05-03 12:21 | PD.ONC.PN ---
Subjective Subjective Remarks Tmax 101.5 overnight. Intubated, receiving bedside bath by nursing staff. Objective Data Date Time Temp Pulse Resp B/P Pulse Ox O2 Delivery O2 Flow Rate FiO2 05/03/17 11:12 100 40 05/03/17 08:04 40 05/03/17 08:00 99.3 81 26 165/94 100 05/03/17 08:00 40 05/03/17 08:00 81 05/03/17 07:43 100 40 05/03/17 06:00 74 05/03/17 04:16 99 40 05/03/17 04:00 40 05/03/17 04:00 66 05/03/17 04:00 99.4 66 25 126/69 100 05/03/17 02:00 59 05/03/17 01:15 100 40 05/03/17 00:00 82 05/03/17 00:00 40 05/03/17 00:00 100.5 82 25 141/73 100 05/02/17 22:00 74 05/02/17 20:00 100 40 05/02/17 20:00 40 05/02/17 20:00 78 05/02/17 20:00 101.5 78 27 132/76 100 05/02/17 18:55 97.7 70 18 168/77 94 05/02/17 16:00 101.3 79 31 120/66 99 05/02/17 16:00 40 05/02/17 15:41 100 40 05/03/17 05/03/17 05/03/17 06:59 14:59 22:59 Intake Total 1078 ml Output Total 560 ml 253 ml Balance 518 ml -253 ml Result Diagram: 05/03/17 0426 05/03/17 0426 Laboratory Results Laboratory Tests Test 05/02/17 05/03/17 05/03/17 05/03/17 17:22 04:26 07:45 07:47 Urine Color YELLOW Urine Turbidity HAZY Urine pH 5.0 Urine Specific [place] 1.012 Urine Protein 30 mg/dL Urine Glucose (UA) NEG mg/dL Urine Ketones NEG mg/dL Urine Occult Blood SMALL Urine Nitrite NEG Urine Bilirubin NEG Urine Urobilinogen LESS THAN 2.0 MG/DL Urine Leukocyte Esterase TRACE Urine RBC 3 /hpf Urine WBC 5 /hpf Urine Squamous Epithelial 1 /hpf Cells Urine Transitional Epithelial 1 /hpf Cells Urine Amorphous Sediment RARE Urine Bacteria RARE /hpf Urine Mucus FEW /lpf Microscopic Urinalysis Comment CATH-CULTURE IND Urine Eosinophils NONE SEEN /HPF White Blood Count 5.3 TH/MM3 Red Blood Count 2.56 MIL/MM3 Hemoglobin 6.9 GM/DL Hematocrit 21.3 % Mean Corpuscular Volume 83.4 FL Mean Corpuscular Hemoglobin 27.0 PG Mean Corpuscular Hemoglobin 32.4 % Concent Red Cell Distribution Width 19.8 % Platelet Count 93 TH/MM3 Mean Platelet Volume 8.3 FL Neutrophils (%) (Auto) 79.6 % Lymphocytes (%) (Auto) 8.1 % Monocytes (%) (Auto) 9.1 % Eosinophils (%) (Auto) 2.3 % Basophils (%) (Auto) 0.9 % Neutrophils # (Auto) 4.2 TH/MM3 Lymphocytes # (Auto) 0.4 TH/MM3 Monocytes # (Auto) 0.5 TH/MM3 Eosinophils # (Auto) 0.1 TH/MM3 Basophils # (Auto) 0.0 TH/MM3 CBC Comment AUTO DIFF Differential Total Cells 100 Counted Neutrophils % (Manual) 69 % Band Neutrophils % 19 % Lymphocytes % 6 % Monocytes % 4 % Eosinophils % 2 % Neutrophils # (Manual) 4.7 TH/MM3 Differential Comment FINAL DIFF MANUAL Platelet Estimate LOW Platelet Morphology Comment NORMAL Tear Drop Cells 1+ Ovalocytes 2+ Sodium Level 134 MEQ/L Potassium Level 3.5 MEQ/L Chloride Level 103 MEQ/L Carbon Dioxide Level 22.4 MEQ/L Anion Gap 9 MEQ/L Blood Urea Nitrogen 52 MG/DL Creatinine 2.35 MG/DL Estimat Glomerular Filtration 29 ML/MIN Rate Random Glucose 111 MG/DL Calcium Level 7.7 MG/DL Magnesium Level 2.2 MG/DL Total Bilirubin 0.6 MG/DL Aspartate Amino Transf 25 U/L (AST/SGOT) Alanine Aminotransferase LESS THAN 6 U/L (ALT/SGPT) Alkaline Phosphatase 55 U/L Total Protein 6.6 GM/DL Albumin 3.3 GM/DL Blood Type O POSITIVE Antibody Screen NEGATIVE Crossmatch Leukocyte-Reduced Red Blood Cells Blood Bank Comment Prothrombin Time 13.3 SEC Prothromb Time International 1.2 RATIO Ratio Activated Partial 59.5 SEC Thromboplast Time Fibrinogen 250 mg/dL Culture Results Microbiology Date/Time Procedure Status Source Growth 04/30/17 16:00 Aerobic Blood Culture - Preliminary Resulted Blood Peripheral NO GROWTH IN 3 DAYS 04/30/17 16:00 Anaerobic Blood Culture - Preliminary Resulted Blood Peripheral NO GROWTH IN 3 DAYS 04/30/17 16:10 Aerobic Blood Culture - Preliminary Resulted Blood Peripheral NO GROWTH IN 3 DAYS 04/30/17 16:10 Anaerobic Blood Culture - Preliminary Resulted Blood Peripheral NO GROWTH IN 3 DAYS 05/02/17 17:22 Urine Culture - Preliminary Resulted Urine Catheterized Urine NO GROWTH IN 24 HOURS. Imaging Studies Last 24 hours Impressions Chest X-Ray 05/03/17 0600 Signed Impressions: Service Date/Time: Wednesday, May 03, 2017 03:35 - CONCLUSION: Bilateral infiltrates, right greater than left, stable. Kwaku Haro MD Administered Medications Medications (Trade) Dose Ordered Sig/Rhea Route PRN Reason Start Time Stop Time Status Last Admin Dose Admin Sodium Chloride (NS 1000 ml Inj) 1,000 ml @ 0 mls/hr Q24H IV 04/21/17 13:45 04/25/17 14:03 Miscellaneous Information Patient in critical care unit? Ass... [id number] .XX 04/22/17 02:45 04/22/17 02:45 Potassium Chloride 100 ml @ 50 mls/hr Q2H PRN IV For Potassium 2.8 - 3.2 mEq/L 04/22/17 08:00 04/22/17 08:49 Potassium Chloride 100 ml @ 50 mls/hr Q2H PRN IV For Potassium 2.8 - 3.2 mEq/L 04/22/17 08:00 04/30/17 16:30 Potassium Chloride (KCl 20 Meq Premix Inj) 100 ml @ 50 mls/hr Q2H PRN IV For Potassium 3.3 - 3.5 mEq/L 04/22/17 08:00 04/30/17 21:22 Magnesium Oxide 800 mg 800 mg UNSCH PRN PO For Magnesium 1.2 - 1.6 mg/dL 04/22/17 08:00 04/28/17 07:54 Magnesium Sulfate/ Sodium Chloride (Magnesium Sulfate Inj/NS Inj) 100 ml @ 50 mls/hr UNSCH PRN IV For Magnesium 1.2 - 1.6 mg/dL 04/22/17 08:00 05/02/17 13:05 Potassium Phosphate 2000 mg 2,000 mg Q4H PRN PO For Phosphorus < 2.5 mg/dL 04/22/17 08:00 04/28/17 18:26 Sodium Phosphate 30 mmol/Sodium Chloride 250 ml @ 42 mls/hr UNSCH PRN IV For Phosphorus < 2.5 mg/dL 04/22/17 08:00 04/29/17 02:34 Potassium Phosphate/Sodium Chloride (Potassium Phosphate Inj/NS 250 ml Inj) 260 ml @ 42 mls/hr UNSCH PRN IV SEE LABEL COMMENTS 04/22/17 08:00 04/22/17 11:25 Rifaximin (Xifaxan) 550 mg BID PO 04/23/17 21:00 05/03/17 07:41 Lactulose (Lactulose Liq) 30 ml DAILY PO 04/24/17 09:00 05/03/17 07:40 Chlorhexidine Gluconate (Peridex 0.12% Liq) 15 ml BID@08,20 MT 04/25/17 20:00 05/03/17 07:44 Bumetanide (Bumex Inj) 1 mg BID@18 IV PUSH 04/28/17 18:00 Hold 04/30/17 17:50 Magnesium Oxide (Mag-Ox) 400 mg Q12HR PO 04/28/17 21:00 05/03/17 07:42 Potassium Chloride (KCl Powder) 20 meq Q12HR NG 04/28/17 21:00 05/03/17 07:42 Pantoprazole Sodium (Protonix Inj) 40 mg DAILY IV PUSH 04/28/17 11:30 05/03/17 07:41 Artificial Tears (Lacrilube Opht Oint) 1 applic Q12HR EACH EYE 04/28/17 21:00 05/03/17 09:10 Albumin Human 25 gm 25 gm Q8H IV 04/29/17 10:00 05/03/17 01:20 Heparin Sodium/ Dextrose (Heparin-D5W Inj) 250 ml @ 0 mls/hr TITRATE IV 05/01/17 06:30 05/03/17 02:30 Metoprolol Tartrate (Lopressor) 50 mg Q8H PO 05/01/17 17:00 05/03/17 07:42 Amiodarone HCl (Cordarone) 200 mg DAILY PO 05/02/17 10:15 05/03/17 07:42 Objective Remarks GENERAL: Intubated patient, supine in bed, receiving bedside bath. SKIN: Warm and dry. HEAD: Normocephalic. EYES: No injection or drainage. NECK: Supple, trachea midline. LYMPHATIC: No adenopathy. CARDIOVASCULAR: +S1/S2; RESPIRATORY: coarse rhonchi. on CPAP; pigtail catheter along left posterior thorax, draining clear yellow fluid. GASTROINTESTINAL: Abdomen distended, large mass along epigastric region EXTREMITIES: No cyanosis NEUROLOGICAL: intubated, but awake. Assessment/Plan Problem List: (1) Thrombocytopenia Status: Acute Plan: 05/03: platelet count improved. HIT pending. --multifactorial most likely due to staph aureus sepsis and/or antibiotic and cephazolin. --doubt HIT. --h/o Hepatitis C --++Cirrhosis of the liver with ascites. --Once the infection clears up, expect his platelet count to improve. --cephazolin can also cause severe thrombocytopenia. (2) Sepsis Status: Acute Plan: --on abx per primary team --Methicillin-sensitive staph aureus sepsis as well as subacute bacterial peritonitis. Assessment 57y/o male admitted with sepsis, possible spontaneous bacterial peritonitis. hematology consulted for evaluation of thrombocytopenia. history of arthritis, atrial fibrillation, hypertension, gastroesophageal reflux disease and central pontine myelinolysis. He also has a history of alcoholism, hepatitis C, and liver cirrhosis. The patient has had previously multiple paracentesis for his end-stage liver disease. h/o Tracheostomy. G-tube placement last year. Attending Statement remains intubated HIT is pending but i expect it to be negative. Thrombocytopenia is most likely due to MSSA and /or cefazolin The exam, history, and the medical decision-making described in the above note were completed with the assistance of the mid-level provider. I reviewed and agree with the findings presented. I attest that I had a [id number] encounter with the patient on the same day, and personally performed and documented my assessment and findings in the medical record. Problem Qualifiers (1) Sepsis: Qualified Code: A41.9 - Sepsis, due to unspecified organism Kelle Dacosta May 03, 2017 12:21 Carli Hope MD May 03, 2017 18:18
[2017-05-03] MEDS: CEFEPIME INJ 2,000 MG in SODIUM CHLORIDE 0.9% INJ 100 ML IV SCH (12:54)
[2017-05-03 14:19] LABS: BACTERIA, URINE OCC /hpf; BLOOD, URINE MOD (NEG); COMMENT (UR) CULT NOT INDICATED; CULTURE IF INDICATED CULT NOT INDICATED; GLUCOSE,URINE NEG (NEG); HYALINE CAST, URINE 9 /lpf (RARE); KETONE, URINE TRACE mg/dL (NEG); MUCUS URINE FEW /lpf (OCC); NITRITE,URINE NEG (NEG); PH, URINE 5.5 (5.0-8.5); URINE COLOR YELLOW (YELLW/STRAW)
[2017-05-03 16:00] LABS: HEPARIN AB OD 0.062 O.D. (0.000-0.300); HEPARIN INDUCED PLATELET AB NEGATIVE (NEGATIVE)
--- NOTE | 2017-05-03 17:08 | HHI.GIFU ---
Subjective Remarks Pt in bed, friend at bedside. He is awake today, denies abd pain. (Julia Decker) Objective Vitals I&O Vital Signs Date Time Temp Pulse Resp B/P Pulse Ox O2 Delivery O2 Flow Rate FiO2 05/03/17 16:05 40 05/03/17 16:00 79 05/03/17 16:00 99.8 79 29 129/64 97 05/03/17 15:48 99 40 05/03/17 12:00 99.5 76 25 168/79 99 05/03/17 12:00 40 05/03/17 11:12 100 40 05/03/17 08:04 40 05/03/17 08:00 99.3 81 26 165/94 100 05/03/17 08:00 40 05/03/17 08:00 81 05/03/17 07:43 100 40 05/03/17 06:00 74 05/03/17 04:16 99 40 05/03/17 04:00 40 05/03/17 04:00 66 05/03/17 04:00 99.4 66 25 126/69 100 05/03/17 02:00 59 05/03/17 01:15 100 40 05/03/17 00:00 82 05/03/17 00:00 40 05/03/17 00:00 100.5 82 25 141/73 100 05/02/17 22:00 74 05/02/17 20:00 100 40 05/02/17 20:00 40 05/02/17 20:00 78 05/02/17 20:00 101.5 78 27 132/76 100 05/02/17 18:55 97.7 70 18 168/77 94 I/O 05/02/17 05/02/17 05/02/17 05/03/17 05/03/17 05/03/17 07:00 15:00 23:00 07:00 15:00 23:00 Intake Total 2353 ml 1324 ml 220 ml 1078 ml 1222 ml Output Total 1255 ml 2560 ml 785 ml 560 ml 969 ml Balance 1098 ml -1236 ml -565 ml 518 ml 253 ml IV Total 452 ml 286 ml 158 ml 109 ml 417 ml Tube Feeding 751 ml 538 ml 62 ml 419 ml 306 ml Albumin 1000 ml 500 ml 500 ml Packed Cells 319 ml Tube Irrigant 180 ml Other 150 ml 50 ml Output Urine Total 500 ml 400 ml 375 ml 150 ml Stool Total 175 ml 1300 ml 30 ml 60 ml 603 ml Chest Tube Drainage Total 580 ml 860 ml 380 ml 350 ml 366 ml Laboratory Laboratory Tests Test 05/02/17 05/02/17 05/03/17 05/03/17 17:22 21:05 04:26 07:45 Urine Color YELLOW Urine Turbidity HAZY Urine pH 5.0 Urine Specific [place] 1.012 Urine Protein 30 Urine Glucose (UA) NEG Urine Ketones NEG Urine Occult Blood SMALL Urine Nitrite NEG Urine Bilirubin NEG Urine Urobilinogen LESS THAN 2.0 Urine Leukocyte Esterase TRACE Urine RBC 3 Urine WBC 5 Urine Squamous Epithelial 1 Cells Urine Transitional Epithelial 1 Cells Urine Amorphous Sediment RARE Urine Bacteria RARE Urine Mucus FEW Microscopic Urinalysis Comment CATH-CULTURE IND Urine Eosinophils NONE SEEN Heparin-Induced Platelet Ab NEGATIVE (Yessy) HIPA Patient Optical Density 0.062 White Blood Count 5.3 Red Blood Count 2.56 Hemoglobin 6.9 Hematocrit 21.3 Mean Corpuscular Volume 83.4 Mean Corpuscular Hemoglobin 27.0 Mean Corpuscular Hemoglobin 32.4 Concent Red Cell Distribution Width 19.8 Platelet Count 93 Mean Platelet Volume 8.3 Neutrophils (%) (Auto) 79.6 Lymphocytes (%) (Auto) 8.1 Monocytes (%) (Auto) 9.1 Eosinophils (%) (Auto) 2.3 Basophils (%) (Auto) 0.9 Neutrophils # (Auto) 4.2 Lymphocytes # (Auto) 0.4 Monocytes # (Auto) 0.5 Eosinophils # (Auto) 0.1 Basophils # (Auto) 0.0 CBC Comment AUTO DIFF Differential Total Cells 100 Counted Neutrophils % (Manual) 69 Band Neutrophils % 19 Lymphocytes % 6 Monocytes % 4 Eosinophils % 2 Neutrophils # (Manual) 4.7 Differential Comment FINAL DIFF MANUAL Platelet Estimate LOW Platelet Morphology Comment NORMAL Tear Drop Cells 1+ Ovalocytes 2+ Sodium Level 134 Potassium Level 3.5 Chloride Level 103 Carbon Dioxide Level 22.4 Anion Gap 9 Blood Urea Nitrogen 52 Creatinine 2.35 Estimat Glomerular Filtration 29 Rate Random Glucose 111 Calcium Level 7.7 Magnesium Level 2.2 Total Bilirubin 0.6 Aspartate Amino Transf 25 (AST/SGOT) Alanine Aminotransferase LESS THAN 6 (ALT/SGPT) Alkaline Phosphatase 55 Total Protein 6.6 Albumin 3.3 Blood Type O POSITIVE Antibody Screen NEGATIVE Crossmatch Leukocyte-Reduced Red Blood Cells Blood Bank Comment Test 05/03/17 05/03/17 07:47 12:45 Prothrombin Time 13.3 Prothromb Time International 1.2 Ratio Activated Partial 59.5 Thromboplast Time Fibrinogen 250 Urine Color YELLOW Urine Turbidity CLOUDY Urine pH 5.5 Urine Specific [place] 1.022 Urine Protein 100 Urine Glucose (UA) NEG Urine Ketones TRACE Urine Occult Blood MOD Urine Nitrite NEG Urine Bilirubin NEG Urine Urobilinogen LESS THAN 2.0 Urine Leukocyte Esterase MOD Urine RBC 43 Urine WBC 7 Urine Amorphous Sediment FEW Urine Bacteria OCC Urine Hyaline Casts 9 Urine Mucus FEW Microscopic Urinalysis Comment CULT NOT INDICATED Date/Time Procedure Status Source Growth 05/03/17 11:40 Stool Occult Blood (BARBARA) - Final Complete Stool Stool HEMOCCULT POSITIVE 05/02/17 17:22 Urine Culture - Preliminary Resulted Urine Catheterized Urine NO GROWTH IN 24 HOURS. 04/30/17 16:10 Aerobic Blood Culture - Preliminary Resulted Blood Peripheral NO GROWTH IN 3 DAYS 04/30/17 16:10 Anaerobic Blood Culture - Preliminary Resulted Blood Peripheral NO GROWTH IN 3 DAYS 04/29/17 13:00 Gram Stain - Final Complete Fluid Pleural Fluid 04/29/17 13:00 Body Fluid Culture - Final Complete Fluid Pleural Fluid NO GROWTH IN 72 HRS.--AEROBICALLY OR ... 04/29/17 13:00 Fungal Smear - Final Resulted Fluid Pleural Fluid NO FUNGAL ELEMENTS SEEN. 04/29/17 13:00 Fungal Culture Resulted Fluid Pleural Fluid Pending 04/29/17 13:00 Acid Fast Stain - Final Resulted Fluid Pleural Fluid NO ACID FAST BACILLI SEEN 04/29/17 13:00 Mycobacterial Culture Resulted Fluid Pleural Fluid Pending Imaging Last Impressions Chest X-Ray 05/03/17 0600 Signed Impressions: Service Date/Time: Wednesday, May 03, 2017 03:35 - CONCLUSION: Bilateral infiltrates, right greater than left, stable. Kwaku Haro MD Lower Extremity Ultrasound 05/02/17 0000 Signed Impressions: Service Date/Time: Tuesday, May 02, 2017 22:03 - CONCLUSION: The study is negative for deep venous thrombosis bilateral lower extremity. Kwaku Haro MD Brain MRI 04/29/17 0000 Signed Impressions: Service Date/Time: Saturday, April 29, 2017 10:08 - CONCLUSION: 1. No evidence of acute infarct, hemorrhage, mass or edema. 2. No evidence of pontine myelinolysis. 3. 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 Escobar Antony MD Chest Tube Insertion 04/28/17 1555 Signed Impressions: Service Date/Time: April 15:51 - CONCLUSION: Uncomplicated chest tube placement as above. Escobar Antony MD Chest CT 04/28/17 0000 Signed Impressions: Service Date/Time: April 15:51 - CONCLUSION: 1. Bilateral pleural effusions as described. 2. Extensive patchy consolidating infiltrates both lungs. 3. Cardiomegaly. 4. Ascites. Escobar Antony MD Abdomen X-Ray 04/28/17 Signed Impressions: Service Date/Time: , April 28, 2017 11:21 - CONCLUSION: Nonspecific bowel gas pattern with some mild gaseous distention of the colon. There is an NG tube in stomach. Srinivasan Ivory MD Upper Extremity Ultrasound 04/23/17 Signed Impressions: Service Date/Time: Sunday, April 23, 2017 10:50 - CONCLUSION: DVT in the right upper extremity seen in the right basilic vein. There is also superficial thrombus in the right cephalic vein. Mushtaq Brown MD Cyst Biopsy Asp-Paracentesis US 04/21/17 0000 Signed Impressions: Service Date/Time: April 11:07 - CONCLUSION: Uncomplicated ultrasound guided paracentesis. Please note that the fluid throughout the abdomen is extremely complex with septations. This can be seen when the fluid has become infected or is complicated by hemorrhage or malignancy. Mushtaq Alexis MD Abdomen/Pelvis CT 04/20/17 Signed Impressions: Service Date/Time: Thursday, April 20, 2017 13:56 - CONCLUSION: 1. Moderate volume free fluid in the abdomen and pelvis with possible associated peritoneal thickening. Thickening of the peritoneal lining can be seen with infection. 2. Large right and moderate size left pleural effusion with associated compressive atelectasis. 3. There is an umbilical hernia containing fluid and fat and fluid containing hernia superior and to the left of the umbilicus. This hernia also contains a portion of the transverse colon. 4. Nonacute findings include changes related to chronic liver disease including recanalized paraumbilical vein and bilateral gynecomastia. 5. Other nonacute findings include cholelithiasis and moderate atherosclerotic disease. Mushtaq Alexis MD Physical Exam HEENT: Normocephalic; atraumatic; no jaundice. Intubated CHEST: OETT to CPAP. Course breath sounds. Bilateral chest tubes with serous drainage. CARDIAC:RRR ABDOMEN: Soft, distended, large ventral hernia and smaller umbilical hernia, nontender, hypoactive bowel sounds. 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 (Julia Decker [employer]ILL FEEDER) Assessment and Plan Plan ASSESSMENT - Ascites with SBP. S/P Cyst Biopsy Asp-Paracentesis US (04/21/17)----> Uncomplicated ultrasound guided paracentesis. Please note that the fluid throughout the abdomen is extremely complex with septations. This can be seen when the fluid has become infected or is complicated by hemorrhage or malignancy, 650cc removed. Cytology with numerous neutrophils and macrophages, negative for malignant cells. Cx with Staphylococcus aureus. Bedside paracentesis (04/28/17)----> 300cc removed, Cx with staphylococcus aureus. Ancef. Albumin. - Liver cirrhosis. Abdomen/Pelvis CT (04/20/17)----> 1. Moderate volume free fluid in the abdomen and pelvis with possible associated peritoneal thickening. Thickening of the peritoneal lining can be seen with infection. 2. Large right and moderate size left pleural effusion with associated compressive atelectasis. 3. There is an umbilical hernia containing fluid and fat and fluid containing hernia superior and to the left of the umbilicus. This hernia also contains a portion of the transverse colon. 4. Nonacute findings include changes related to chronic liver disease including recanalized paraumbilical vein and bilateral gynecomastia. 5. Other nonacute findings include cholelithiasis and moderate atherosclerotic disease. Has Hepatitis C. LFT stable. - Mild colonic ileus. Abdomen X-Ray (04/28/17)----> Nonspecific bowel gas pattern with some mild gaseous distention of the colon. There is an NG tube in stomach. Lactulose. (+) BM. More ascites on exam - Large ventral hernia, smaller umbilical hernia. Stable. - Anemia, normocytic. Hgb dropped to 6.9 today. No active bleeding. He does have hx UGIB in 2015 r/t portal hypertensive gastropathy. - Hx of hep-C- quant 22,500 - Right DVT on US, on heparin - PNA, AF RVR per primary, cardiology following, ID following - HILARY - per CCM. worsening renal function PLAN - TF as tolerated - Cont. Lactulose - Cont. Xifaxan - Cont. Albumin - Cont. Albumin. - consider nephrology consult - Supportive care - Further recommendations to follow based on results of above. - Patient seen and examined by Dr. Mix and myself and this note is written on his behalf. (Julia Decker) Physician Comments Patient seen and examined Agree with above Continue current supportive care Monitor labs (Dain Mix MD) Julia Decker May 03, 2017 17:08 Dain Mix MD May 03, 2017 19:38
[2017-05-03] MEDS: AMIODARONE INJ 450 MG in D5W (EXCEL BAG) 241 ML IV SCH (18:21)
[2017-05-03] MEDS ORDERED: METOPROLOL TARTRATE 5 MG/5 ML VIAL IV PUSH ONE (23:45)
[2017-05-04] VITALS (35 sets, daily range): BP systolic 115–165; BP diastolic 62–88; PULSE 82–141; RESP 17–29; TEMP 99.3–101; O2SAT 98–100
[2017-05-04] MEDS: DILTIAZEM 125 MG/NS 100 ML IV SCH ×8 (00:25→23:20)
[2017-05-04] MEDS: AMIODARONE INJ 450 MG in D5W (EXCEL BAG) 241 ML IV SCH ×2 (01:21→16:27)
[2017-05-04] MEDS: METOPROLOL TARTRATE 50 MG TAB PO SCH ×3 (01:30→15:44)
[2017-05-04] MEDS: ALBUMIN HUMAN 5% 25 GM/500 ML BOTTLE IV SCH ×3 (01:30→17:45)
[2017-05-04] MEDS: CEFEPIME INJ 2,000 MG in SODIUM CHLORIDE 0.9% INJ 100 ML IV SCH ×2 (01:30→12:13)
[2017-05-04] MEDS: HEPARIN-D5W 25,000 U/250 ML 250 ML IV SCH (01:41)
[2017-05-04] MEDS: RESP: ALBUTEROL 2.5 MG/IPRATROPIUM 0.5 MG NEB (SCH) NEB ×4 (03:22→20:04)
[2017-05-04 05:41] LABS: AUTOMATED NEUTROPHIL # 5.4 TH/MM3 (1.8-7.7); BASOPHIL # 0.1 TH/MM3 (0-0.2); BASOPHIL % 0.9 % (0.0-2.0); EOSINOPHIL # 0.1 TH/MM3 (0-0.4); HEMO FLAGS DIFF FINAL; LYMPH % 7.5 % (9.0-44.0); LYMPHOCYTE # 0.5 TH/MM3 (1.0-4.8); MEAN CELL VOLUME 82.2 FL (80.0-100.0); MEAN CORPUSCULAR HGB CONC 34.1 % (32.0-36.0); MONO % 7.6 % (0.0-8.0); PLATELET COUNT 102 TH/MM3 (150-450); RED BLOOD COUNT 2.68 MIL/MM3 (4.50-5.90); RED CELL DISTRIBUTION WIDTH 18.7 % (11.6-17.2); WHITE BLOOD COUNT 6.6 TH/MM3 (4.0-11.0)
--- NOTE | 2017-05-04 05:58 | RADRPT ---
EXAM DATE/TIME: 05/04/2017 04:40 [place] COMPARISON: CHEST SINGLE AP, May 03, 2017, 3:35. INDICATIONS : Shortness of breath. MEDICAL HISTORY : Pancreatitis. Arthritis, Cirrhosis, Hypertension, Seizures, Sleep apnea SURGICAL HISTORY : None. ENCOUNTER: Subsequent ACUITY: 2 weeks PAIN SCORE: Non-responsive. LOCATION: Bilateral chest FINDINGS: Endotracheal tube tip 2.3 cm above the adelita. Gastric tube traverses the [id number]. Bilateral lower chest pigtail catheters. Patchy areas of consolidation right mid and lower lung and patchy inf iltrates in the left lower lung stable from prior. Heart upper limits normal size. CONCLUSION: Stable bilateral infiltrates, right greater than left. Kwaku Haro MD on May 04, 2017 at 5:56 Board Certified Radiologist. This report was verified electronically.
[2017-05-04 05:59] LABS: APTT (PATIENT) 56.5 SEC (24.3-30.1)
[2017-05-04 06:03] LABS: ALT (GPT) LESS THAN 6 U/L (12-78); ANION GAP 11 MEQ/L (5-15); AST (GOT) 20 U/L (15-37); BICARBONATE 22.2 MEQ/L (21.0-32.0); BLOOD UREA NITROGEN 56 MG/DL (7-18); CHLORIDE 105 MEQ/L (98-107); GLOMERULAR FILTRATION RATE 26 ML/MIN (>89); MAGNESIUM 2.1 MG/DL (1.5-2.5); POTASSIUM 3.6 MEQ/L (3.5-5.1); SODIUM (NA) 138 MEQ/L (136-145)
[2017-05-04 06:05] LABS: ALKALINE PHOSPHATASE 51 U/L (45-117); TOTAL BILIRUBIN ADULT 0.8 MG/DL (0.2-1.0)
[2017-05-04 06:26] LABS: C. DIFF EPI 027 PRESUMPTIVE NEGATIVE (NEGATIVE)
[2017-05-04] MEDS: CHLORHEXIDINE 0.12% (ORAL KIT) 15 ML CUP MT SCH ×2 (08:00→19:45)
[2017-05-04] MEDS: POTASSIUM CHLORIDE 20 MEQ PWD PACKET NG SCH ×2 (09:00→19:44)
[2017-05-04] MEDS: ARTIFICIAL TEARS OPTH OINT 3.5 APPLIC/3.5 GM TUBO EACH EYE SCH (09:00)
[2017-05-04] MEDS: MAGNESIUM OXIDE 400 MG TAB PO SCH ×2 (09:00→19:44)
--- NOTE | 2017-05-04 09:32 | HHI.GIFU ---
Subjective Remarks Resting in bed in no distress. Awake, nods appropriately to simple yes/no questions. On CPAP. Denies abdominal pain. (Megan Orellana) Objective Vitals I&O Vital Signs Date Time Temp Pulse Resp B/P Pulse Ox O2 Delivery O2 Flow Rate FiO2 05/04/17 08:00 99.7 127 18 117/62 100 05/04/17 08:00 117 05/04/17 08:00 40 05/04/17 07:30 100 40 05/04/17 07:30 40 05/04/17 06:00 107 05/04/17 05:31 127 05/04/17 04:38 100 40 05/04/17 04:00 40 05/04/17 04:00 99.7 127 18 123/74 100 05/04/17 02:00 130 05/04/17 01:24 100 40 05/04/17 00:00 141 05/04/17 00:00 40 05/04/17 00:00 101.0 141 24 134/68 99 05/03/17 22:00 137 05/03/17 21:24 100 40 05/03/17 20:00 98.6 125 22 123/60 100 05/03/17 20:00 40 05/03/17 20:00 125 05/03/17 18:00 136 05/03/17 16:05 40 05/03/17 16:00 79 05/03/17 16:00 99.8 79 29 129/64 97 05/03/17 15:48 99 40 05/03/17 12:00 99.5 76 25 168/79 99 05/03/17 12:00 40 05/03/17 11:12 100 40 I/O 05/03/17 05/03/17 05/03/17 05/04/17 05/04/17 05/04/17 07:00 15:00 23:00 07:00 15:00 23:00 Intake Total 1078 ml 1222 ml 1154 ml 901 ml Output Total 560 ml 969 ml 885 ml 770 ml Balance 518 ml 253 ml 269 ml 131 ml IV Total 109 ml 417 ml 734 ml 564 ml Tube Feeding 419 ml 306 ml 420 ml 337 ml Albumin 500 ml Packed Cells 319 ml Tube Irrigant 180 ml Other 50 ml Output Urine Total 150 ml 350 ml 230 ml Stool Total 60 ml 603 ml 60 ml 40 ml Chest Tube Drainage Total 350 ml 366 ml 475 ml 500 ml Laboratory Laboratory Tests Test 05/03/17 05/03/17 05/04/17 11:40 12:45 04:21 Stool C. difficile Toxin (PCR) NEGATIVE Stl C. difficile Toxin PRESUMPTIVE Epiderm 027 NEGATIVE Urine Color YELLOW Urine Turbidity CLOUDY Urine pH 5.5 Urine Specific [place] 1.022 Urine Protein 100 Urine Glucose (UA) NEG Urine Ketones TRACE Urine Occult Blood MOD Urine Nitrite NEG Urine Bilirubin NEG Urine Urobilinogen LESS THAN 2.0 Urine Leukocyte Esterase MOD Urine RBC 43 Urine WBC 7 Urine Amorphous Sediment FEW Urine Bacteria OCC Urine Hyaline Casts 9 Urine Mucus FEW Microscopic Urinalysis Comment CULT NOT INDICATED White Blood Count 6.6 Red Blood Count 2.68 Hemoglobin 7.5 Hematocrit 22.0 Mean Corpuscular Volume 82.2 Mean Corpuscular Hemoglobin 28.0 Mean Corpuscular Hemoglobin 34.1 Concent Red Cell Distribution Width 18.7 Platelet Count 102 Mean Platelet Volume 8.8 Neutrophils (%) (Auto) 82.0 Lymphocytes (%) (Auto) 7.5 Monocytes (%) (Auto) 7.6 Eosinophils (%) (Auto) 2.0 Basophils (%) (Auto) 0.9 Neutrophils # (Auto) 5.4 Lymphocytes # (Auto) 0.5 Monocytes # (Auto) 0.5 Eosinophils # (Auto) 0.1 Basophils # (Auto) 0.1 CBC Comment DIFF FINAL Differential Comment Activated Partial 56.5 Thromboplast Time Sodium Level 138 Potassium Level 3.6 Chloride Level 105 Carbon Dioxide Level 22.2 Anion Gap 11 Blood Urea Nitrogen 56 Creatinine 2.51 Estimat Glomerular Filtration 26 Rate Random Glucose 130 Calcium Level 8.3 Magnesium Level 2.1 Total Bilirubin 0.8 Aspartate Amino Transf 20 (AST/SGOT) Alanine Aminotransferase LESS THAN 6 (ALT/SGPT) Alkaline Phosphatase 51 Total Protein 7.0 Albumin 3.5 Date/Time Procedure Status Source Growth 05/03/17 19:22 Aerobic Blood Culture Received Blood Peripheral Pending 05/03/17 19:22 Anaerobic Blood Culture Received Blood Peripheral Pending 05/03/17 13:55 Gram Stain Received Sputum Endotracheal Pending 05/03/17 13:55 Sputum Culture Received Sputum Endotracheal Pending 05/03/17 11:40 Stool Occult Blood (BARBARA) - Final Complete Stool Stool HEMOCCULT POSITIVE 05/02/17 17:22 Urine Culture - Preliminary Resulted Urine Catheterized Urine NO GROWTH IN 24 HOURS. 04/30/17 16:10 Aerobic Blood Culture - Preliminary Resulted Blood Peripheral NO GROWTH IN 3 DAYS 04/30/17 16:10 Anaerobic Blood Culture - Preliminary Resulted Blood Peripheral NO GROWTH IN 3 DAYS 04/29/17 13:00 Gram Stain - Final Complete Fluid Pleural Fluid 04/29/17 13:00 Body Fluid Culture - Final Complete Fluid Pleural Fluid NO GROWTH IN 72 HRS.--AEROBICALLY OR ... 04/29/17 13:00 Fungal Smear - Final Resulted Fluid Pleural Fluid NO FUNGAL ELEMENTS SEEN. 04/29/17 13:00 Fungal Culture Resulted Fluid Pleural Fluid Pending 04/29/17 13:00 Acid Fast Stain - Final Resulted Fluid Pleural Fluid NO ACID FAST BACILLI SEEN 04/29/17 13:00 Mycobacterial Culture Resulted Fluid Pleural Fluid Pending Imaging Last Impressions Chest X-Ray 05/04/17 0600 Signed Impressions: Service Date/Time: Thursday, May 04, 2017 04:40 - CONCLUSION: Stable bilateral infiltrates, right greater than left. Kwaku Haro MD Lower Extremity Ultrasound 05/02/17 0000 Signed Impressions: Service Date/Time: Tuesday, May 02, 2017 22:03 - CONCLUSION: The study is negative for deep venous thrombosis bilateral lower extremity. Kwaku Haro MD Brain MRI 04/29/17 0000 Signed Impressions: Service Date/Time: Saturday, April 29, 2017 10:08 - CONCLUSION: 1. No evidence of acute infarct, hemorrhage, mass or edema. 2. No evidence of pontine myelinolysis. 3. 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 Escobar Antony MD Chest Tube Insertion 04/28/17 1555 Signed Impressions: Service Date/Time: April 15:51 - CONCLUSION: Uncomplicated chest tube placement as above. Escobar Antony MD Chest CT 04/28/17 0000 Signed Impressions: Service Date/Time: April 15:51 - CONCLUSION: 1. Bilateral pleural effusions as described. 2. Extensive patchy consolidating infiltrates both lungs. 3. Cardiomegaly. 4. Ascites. Escobar Antony MD Abdomen X-Ray 04/28/17 0000 Signed Impressions: Service Date/Time: April 11:21 - CONCLUSION: Nonspecific bowel gas pattern with some mild gaseous distention of the colon. There is an NG tube in stomach. Srinivasan Ivory MD Upper Extremity Ultrasound 04/23/17 0000 Signed Impressions: Service Date/Time: Sunday, April 23, 2017 10:50 - CONCLUSION: DVT in the right upper extremity seen in the right basilic vein. There is also superficial thrombus in the right cephalic vein. Mushtaq Brown MD Cyst Biopsy Asp-Paracentesis US 04/21/17 0000 Signed Impressions: Service Date/Time: April 11:07 - CONCLUSION: Uncomplicated ultrasound guided paracentesis. Please note that the fluid throughout the abdomen is extremely complex with septations. This can be seen when the fluid has become infected or is complicated by hemorrhage or malignancy. Mushtaq Alexis MD Abdomen/Pelvis CT 04/20/17 0000 Signed Impressions: Service Date/Time: Thursday, April 20, 2017 13:56 - CONCLUSION: 1. Moderate volume free fluid in the abdomen and pelvis with possible associated peritoneal thickening. Thickening of the peritoneal lining can be seen with infection. 2. Large right and moderate size left pleural effusion with associated compressive atelectasis. 3. There is an umbilical hernia containing fluid and fat and fluid containing hernia superior and to the left of the umbilicus. This hernia also contains a portion of the transverse colon. 4. Nonacute findings include changes related to chronic liver disease including recanalized paraumbilical vein and bilateral gynecomastia. 5. Other nonacute findings include cholelithiasis and moderate atherosclerotic disease. Mushtaq Alexis MD Physical Exam HEENT: Normocephalic; atraumatic; no jaundice. Intubated CHEST: OETT to CPAP. Course breath sounds. Bilateral chest tubes with serous drainage. CARDIAC: Irregular ABDOMEN: Soft, distended, large ventral hernia and smaller umbilical hernia, nontender, hypoactive bowel sounds. 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 (Megan OrellanaP) Assessment and Plan Plan ASSESSMENT - Ascites with SBP. S/P Cyst Biopsy Asp-Paracentesis US (04/21/17)----> Uncomplicated ultrasound guided paracentesis. Please note that the fluid throughout the abdomen is extremely complex with septations. This can be seen when the fluid has become infected or is complicated by hemorrhage or malignancy, 650cc removed. Cytology with numerous neutrophils and macrophages, negative for malignant cells. Cx with Staphylococcus aureus. Bedside paracentesis (04/28/17)----> 300cc removed, Cx with staphylococcus aureus. Cefepime Albumin. Unable to add diuretics secondary to worsening renal function - Liver cirrhosis. Abdomen/Pelvis CT (04/20/17)----> 1. Moderate volume free fluid in the abdomen and pelvis with possible associated peritoneal thickening. Thickening of the peritoneal lining can be seen with infection. 2. Large right and moderate size left pleural effusion with associated compressive atelectasis. 3. There is an umbilical hernia containing fluid and fat and fluid containing hernia superior and to the left of the umbilicus. This hernia also contains a portion of the transverse colon. 4. Nonacute findings include changes related to chronic liver disease including recanalized paraumbilical vein and bilateral gynecomastia. 5. Other nonacute findings include cholelithiasis and moderate atherosclerotic disease. Has Hepatitis C. LFT stable. - Mild colonic ileus. Abdomen X-Ray (04/28/17)----> Nonspecific bowel gas pattern with some mild gaseous distention of the colon. There is an NG tube in stomach. Lactulose. (+) BM. Tolerate TF, seems distention is more from ascites. - Large ventral hernia, smaller umbilical hernia. Stable. - Anemia, normocytic. He does have hx UGIB in 2015 r/t portal hypertensive gastropathy, but no active bleeding at this time. S/P 1 unit PRBC. 7.5/22.0.. - Hx of hep-C- quant 22,500 - Right DVT on US, on heparin - Resp. failure, PNA, - Atrial fibrillation with RVR. On amiodarone, cardizem gtt. Cardiology following. - HILARY, worsening renal function. Per [facility] PLAN - TF as tolerated - Cont. Lactulose - Cont. Xifaxan - Cont. Albumin - Monitor HH - Transfuse as necessary - Supportive care - Recommend nephrology evaluation for worsening renal function, which is limiting diuretic use - Further recommendations to follow based on results of above. - Patient seen and examined by Dr. Mix and myself and this note is written on his behalf. (Megan Orellana) Physician Comments Patient seen and examined Agree with above Continue with current supportive care Monitor labs Nephrology's evaluation is noted (Dain Mix MD) Megan Orellana May 04, 2017 09:32 Dain Mix MD May 04, 2017 18:03
[2017-05-04] MEDS: LACTULOSE SYRUP 20 GM/30 ML CUP PO SCH (09:40)
[2017-05-04] MEDS: RIFAXIMIN 550 MG TAB PO SCH ×2 (09:41→19:44)
[2017-05-04] MEDS: PANTOPRAZOLE SODIUM 40 MG VIAL IV PUSH SCH (09:41)
[2017-05-04] MEDS: AMIODARONE 200 MG TAB PO SCH ×2 (09:41→16:16)
--- NOTE | 2017-05-04 12:21 | HHI.HCPN ---
Reason for visit a. To assist with evaluation and management of symptoms including: confusion , pain, decreased appetite, dyspnea b. To assist medical decision maker(s) with: better understanding of current medical conditions; weighing benefits/burdens of medical treatment options; making medical treatment decisions. . Subjective/Interval History Mr. Forrest is a 56 year old male patient with cirrhosis, osteoarthritis, atrial fibrillation, hypertension, GERD, sleep apnea, central pontine myelinolysis, EtOH abuse and ascites requiring paracentesis admitted to [facility] ED on 04/20/2017 for management of sepsis, failure to thrive and dehydration. Status post intubation on 04/26/17 secondary to hypoxemic respiratory failure. Patient remains intubated on mechanical ventilator, not tolerating CPAP. Right chest tube output of 150ml in 8 hours; Left chest tube output of 250ml in 8 hours. CXR on 05/02/17 showed increasing patchy airspace disease much worse on the right than the left. Follow-up chest x-ray today shows stable bilateral infiltrates, right greater than left. Patient is in atrial fibrillation with RVR again on Amiodarone and Cardizem drip. Ongoing encephalopathy. Patient opens eyes but does not respond to questions or follow commands on my exam. Nursing reports patient intermittently will follow simple commands. H/H increased to 7.5/22.0 status post being transfused 05/03/2017 for H/H of 6.9/ 21.3. Platelets slightly increased at 102 (previously 93 on 05/03/17). Remains febrile, Tmax 101.0 No leukocytosis. Sputum culture and blood cultures pending; no growth in 24 hours. C. difficile PCR negative. Patient received Vancomycin x 1 IV; remains on cefepime. Infectious disease following. Kidney functioning worsening with diuresis. BUN 56; creatinine 2.51; GFR 26. Nephrology consult pending. . Family/friend interactions Spoke to patient's son (Yasmani) and sister (Josefa) via telephone; both have plans to travel to [place] and will be available to meet with palliative care on Tuesday (05/09/2017) morning. They were both updated on the patient's clinical condition and questions answered to the best of my ability. Patient remains intubated on mechanical ventilator with fluid overload despite diuresis; worsening kidney function. Nephrology has been consulted to evaluate the patient who may need HD for fluid removal. He is not tolerating CPAP trials; patient will likely require tracheostomy for successful vent weaning. Tracheostomy was discussed with patient's son; apparently patient status post previous tracheostomy with decannulation in September,. Plan to discuss tracheostomy decision further at upcoming palliative care meeting; discussed with Dr. Landin who is agreeable to this plan. . Advance Directives Advance Directive Specifics Documented care wishes: No documented care wishes have been completed . Objective Vital Signs Date Time Temp Pulse Resp B/P Pulse Ox O2 Delivery O2 Flow Rate FiO2 05/04/17 11:34 100 40 05/04/17 10:00 117 05/04/17 08:00 99.7 127 18 117/62 100 05/04/17 08:00 117 05/04/17 08:00 40 05/04/17 07:30 100 40 05/04/17 07:30 40 05/04/17 06:00 107 05/04/17 05:31 127 05/04/17 04:38 100 40 05/04/17 04:00 40 05/04/17 04:00 99.7 127 18 123/74 100 05/04/17 02:00 130 05/04/17 01:24 100 40 05/04/17 00:00 141 05/04/17 00:00 40 05/04/17 00:00 101.0 141 24 134/68 99 05/03/17 22:00 137 05/03/17 21:24 100 40 05/03/17 20:00 98.6 125 22 123/60 100 05/03/17 20:00 40 05/03/17 20:00 125 05/03/17 18:00 136 05/03/17 16:05 40 05/03/17 16:00 79 05/03/17 16:00 99.8 79 29 129/64 97 05/03/17 15:48 99 40 Intake & Output 05/04/17 05/04/17 07:00 19:00 Intake Total 2055 ml Output Total 1655 ml Balance 400 ml IV Total 1298 ml Tube Feeding 757 ml Output Urine Total 580 ml Stool Total 100 ml Chest Tube Drainage Total 975 ml . Physical Exam CONSTITUTIONAL/GENERAL: This is a frail, cachectic male patient who appears older than his stated age. TUBES/LINES/DRAINS: ETT, OGT, PIV x 3, urinary catheter, rectal bag, soft restraints SKIN: Ecchymoses on upper extremities. Skin temperature appropriate. Not diaphoretic. HEAD: Atraumatic. Normocephalic. EYES: Pupils equal and round and reactive. No injection or drainage. Fundi not examined. ENT: Nose without bleeding or purulent drainage. Orientation NECK: Trachea midline. CARDIOVASCULAR: Atrial fibrillation with RVR on amiodarone and Cardizem drip. Bilateral upper and lower extremities with 2+ to 3+ edema. Peripheral pulses symmetric. RESPIRATORY/CHEST: Intubated on mechanical vent, not tolerating CPAP trials. GASTROINTESTINAL: Abdomen distended, nontender. Large umbilical hernia. GENITOURINARY: Without palpable bladder distension. Palmer catheter in place. MUSCULOSKELETAL: Extremities without clubbing, cyanosis. Bilateral upper and lower extremities edematous LYMPHATICS: No palpable cervical or supraclavicular adenopathy. NEUROLOGICAL: Patient opens eyes simultaneously, follows commands intermittently. Moves all extremities spontaneously and purposefully 4 PSYCHIATRIC: No anxiety/agitation observed on exam . Diagnostic Tests Laboratory Laboratory Tests Test 05/01/17 05/01/17 05/01/17 05/02/17 13:25 15:10 22:42 05:30 Blood Gas Puncture Site LT RADIAL Blood Gas Patient Temperature 98.6 Blood Gas HCO3 22 mmol/L (22-26) Blood Gas Base Excess -1.6 mmol/L (-2-2) Blood Gas Oxygen Saturation 90 % (90-100) Arterial Blood pH 7.46 (7.380-7.420) Arterial Blood Partial 31 mmHg (38-42) Pressure CO2 Arterial Blood Partial 67 mmHg Pressure O2 (61-120) Arterial Blood Oxygen Content 13.5 Vol % (12.0-20.0) Arterial Blood 2.1 % (0-4) Carboxyhemoglobin Arterial Blood Methemoglobin 1.1 % (0-2) Blood Gas Hemoglobin 10.5 G/DL (12.0-16.0) Oxygen Delivery Device VENTILATOR Blood Gas Ventilator Setting CPAP 5/PS 5 Blood Gas Inspired Oxygen 40 % Activated Partial 38.7 SEC 54.1 SEC 63.3 SEC Thromboplast Time (24.3-30.1) (24.3-30.1) (24.3-30.1) White Blood Count 5.5 TH/MM3 (4.0-11.0) Red Blood Count 2.79 MIL/MM3 (4.50-5.90) Hemoglobin 7.7 GM/DL (13.0-17.0) Hematocrit 23.1 % (39.0-51.0) Mean Corpuscular Volume 82.7 FL (80.0-100.0) Mean Corpuscular Hemoglobin 27.7 PG (27.0-34.0) Mean Corpuscular Hemoglobin 33.5 % Concent (32.0-36.0) Red Cell Distribution Width 19.9 % (11.6-17.2) Platelet Count 81 TH/MM3 (150-450) Mean Platelet Volume 8.8 FL (7.0-11.0) Neutrophils (%) (Auto) 81.9 % (16.0-70.0) Lymphocytes (%) (Auto) 8.8 % (9.0-44.0) Monocytes (%) (Auto) 6.7 % (0.0-8.0) Eosinophils (%) (Auto) 1.8 % (0.0-4.0) Basophils (%) (Auto) 0.8 % (0.0-2.0) Neutrophils # (Auto) 4.5 TH/MM3 (1.8-7.7) Lymphocytes # (Auto) 0.5 TH/MM3 (1.0-4.8) Monocytes # (Auto) 0.4 TH/MM3 (0-0.9) Eosinophils # (Auto) 0.1 TH/MM3 (0-0.4) Basophils # (Auto) 0.0 TH/MM3 (0-0.2) CBC Comment AUTO DIFF Differential Comment AUTO DIFF CONFIRMED Prothrombin Time 12.9 SEC (9.8-11.6) Prothromb Time International 1.2 RATIO Ratio Sodium Level 134 MEQ/L (136-145) Potassium Level 3.8 MEQ/L (3.5-5.1) Chloride Level 104 MEQ/L (98-107) Carbon Dioxide Level 22.9 MEQ/L (21.0-32.0) Anion Gap 7 MEQ/L (5-15) Blood Urea Nitrogen 41 MG/DL (7-18) Creatinine 1.88 MG/DL (0.60-1.30) Estimat Glomerular Filtration 37 ML/MIN (>89) Rate Random Glucose 115 MG/DL (74-106) Calcium Level 7.7 MG/DL (8.5-10.1) Magnesium Level 1.8 MG/DL (1.5-2.5) Total Bilirubin 0.7 MG/DL (0.2-1.0) Aspartate Amino Transf 28 U/L (15-37) (AST/SGOT) Alanine Aminotransferase LESS THAN 6 (ALT/SGPT) U/L (12-78) Alkaline Phosphatase 60 U/L (45-117) Total Protein 6.4 GM/DL (6.4-8.2) Albumin 3.3 GM/DL (3.4-5.0) Test 05/02/17 05/02/17 05/03/17 05/03/17 17:22 21:05 04:26 07:45 Urine Color YELLOW (YELLW/STRAW) Urine Turbidity HAZY (CLEAR) Urine pH 5.0 (5.0-8.5) Urine Specific [place] 1.012 (1.002-1.035) Urine Protein 30 mg/dL (NEG-TRACE) Urine Glucose (UA) NEG mg/dL (NEG) Urine Ketones NEG mg/dL (NEG) Urine Occult Blood SMALL (NEG) Urine Nitrite NEG (NEG) Urine Bilirubin NEG (NEG) Urine Urobilinogen LESS THAN 2.0 MG/DL (LESS THAN 2.0) Urine Leukocyte Esterase TRACE (NEG) Urine RBC 3 /hpf (0-3) Urine WBC 5 /hpf (0-5) Urine Squamous Epithelial 1 /hpf (0-5) Cells Urine Transitional Epithelial 1 /hpf (NONE) Cells Urine Amorphous Sediment RARE Urine Bacteria RARE /hpf (NONE) Urine Mucus FEW /lpf (OCC) Microscopic Urinalysis Comment CATH-CULTURE IND Urine Eosinophils NONE SEEN /HPF (NONE SEEN) Heparin-Induced Platelet Ab NEGATIVE (Yessy) (NEGATIVE) HIPA Patient Optical Density 0.062 O.D. (0.000-0.300) White Blood Count 5.3 TH/MM3 (4.0-11.0) Red Blood Count 2.56 MIL/MM3 (4.50-5.90) Hemoglobin 6.9 GM/DL (13.0-17.0) Hematocrit 21.3 % (39.0-51.0) Mean Corpuscular Volume 83.4 FL (80.0-100.0) Mean Corpuscular Hemoglobin 27.0 PG (27.0-34.0) Mean Corpuscular Hemoglobin 32.4 % Concent (32.0-36.0) Red Cell Distribution Width 19.8 % (11.6-17.2) Platelet Count 93 TH/MM3 (150-450) Mean Platelet Volume 8.3 FL (7.0-11.0) Neutrophils (%) (Auto) 79.6 % (16.0-70.0) Lymphocytes (%) (Auto) 8.1 % (9.0-44.0) Monocytes (%) (Auto) 9.1 % (0.0-8.0) Eosinophils (%) (Auto) 2.3 % (0.0-4.0) Basophils (%) (Auto) 0.9 % (0.0-2.0) Neutrophils # (Auto) 4.2 TH/MM3 (1.8-7.7) Lymphocytes # (Auto) 0.4 TH/MM3 (1.0-4.8) Monocytes # (Auto) 0.5 TH/MM3 (0-0.9) Eosinophils # (Auto) 0.1 TH/MM3 (0-0.4) Basophils # (Auto) 0.0 TH/MM3 (0-0.2) CBC Comment AUTO DIFF Differential Total Cells 100 Counted Neutrophils % (Manual) 69 % (16-70) Band Neutrophils % 19 % (0-6) Lymphocytes % 6 % (9-44) Monocytes % 4 % (0-8) Eosinophils % 2 % (0-4) Neutrophils # (Manual) 4.7 TH/MM3 (1.8-7.7) Differential Comment FINAL DIFF MANUAL Platelet Estimate LOW (NORMAL) Platelet Morphology Comment NORMAL (NORMAL) Tear Drop Cells 1+ (NORMAL) Ovalocytes 2+ (NORMAL) Sodium Level 134 MEQ/L (136-145) Potassium Level 3.5 MEQ/L (3.5-5.1) Chloride Level 103 MEQ/L (98-107) Carbon Dioxide Level 22.4 MEQ/L (21.0-32.0) Anion Gap 9 MEQ/L (5-15) Blood Urea Nitrogen 52 MG/DL (7-18) Creatinine 2.35 MG/DL (0.60-1.30) Estimat Glomerular Filtration 29 ML/MIN (>89) Rate Random Glucose 111 MG/DL (74-106) Calcium Level 7.7 MG/DL (8.5-10.1) Magnesium Level 2.2 MG/DL (1.5-2.5) Total Bilirubin 0.6 MG/DL (0.2-1.0) Aspartate Amino Transf 25 U/L (15-37) (AST/SGOT) Alanine Aminotransferase LESS THAN 6 (ALT/SGPT) U/L (12-78) Alkaline Phosphatase 55 U/L (45-117) Total Protein 6.6 GM/DL (6.4-8.2) Albumin 3.3 GM/DL (3.4-5.0) Blood Type O POSITIVE Antibody Screen NEGATIVE Crossmatch Leukocyte-Reduced Red Blood Cells Blood Bank Comment Test 05/03/17 05/03/17 05/03/17 05/04/17 07:47 11:40 12:45 04:21 Prothrombin Time 13.3 SEC (9.8-11.6) Prothromb Time International 1.2 RATIO Ratio Activated Partial 59.5 SEC 56.5 SEC Thromboplast Time (24.3-30.1) (24.3-30.1) Fibrinogen 250 mg/dL (227-377) Stool C. difficile Toxin (PCR) NEGATIVE (NEGATIVE) Stl C. difficile Toxin PRESUMPTIVE Epiderm 027 NEGATIVE (NEGATIVE) Urine Color YELLOW (YELLW/STRAW) Urine Turbidity CLOUDY (CLEAR) Urine pH 5.5 (5.0-8.5) Urine Specific [place] 1.022 (1.002-1.035) Urine Protein 100 mg/dL (NEG-TRACE) Urine Glucose (UA) NEG mg/dL (NEG) Urine Ketones TRACE mg/dL (NEG) Urine Occult Blood MOD (NEG) Urine Nitrite NEG (NEG) Urine Bilirubin NEG (NEG) Urine Urobilinogen LESS THAN 2.0 MG/DL (LESS THAN 2.0) Urine Leukocyte Esterase MOD (NEG) Urine RBC 43 /hpf (0-3) Urine WBC 7 /hpf (0-5) Urine Amorphous Sediment FEW Urine Bacteria OCC /hpf (NONE) Urine Hyaline Casts 9 /lpf (RARE) Urine Mucus FEW /lpf (OCC) Microscopic Urinalysis Comment CULT NOT INDICATED White Blood Count 6.6 TH/MM3 (4.0-11.0) Red Blood Count 2.68 MIL/MM3 (4.50-5.90) Hemoglobin 7.5 GM/DL (13.0-17.0) Hematocrit 22.0 % (39.0-51.0) Mean Corpuscular Volume 82.2 FL (80.0-100.0) Mean Corpuscular Hemoglobin 28.0 PG (27.0-34.0) Mean Corpuscular Hemoglobin 34.1 % Concent (32.0-36.0) Red Cell Distribution Width 18.7 % (11.6-17.2) Platelet Count 102 TH/MM3 (150-450) Mean Platelet Volume 8.8 FL (7.0-11.0) Neutrophils (%) (Auto) 82.0 % (16.0-70.0) Lymphocytes (%) (Auto) 7.5 % (9.0-44.0) Monocytes (%) (Auto) 7.6 % (0.0-8.0) Eosinophils (%) (Auto) 2.0 % (0.0-4.0) Basophils (%) (Auto) 0.9 % (0.0-2.0) Neutrophils # (Auto) 5.4 TH/MM3 (1.8-7.7) Lymphocytes # (Auto) 0.5 TH/MM3 (1.0-4.8) Monocytes # (Auto) 0.5 TH/MM3 (0-0.9) Eosinophils # (Auto) 0.1 TH/MM3 (0-0.4) Basophils # (Auto) 0.1 TH/MM3 (0-0.2) CBC Comment DIFF FINAL Differential Comment Sodium Level 138 MEQ/L (136-145) Potassium Level 3.6 MEQ/L (3.5-5.1) Chloride Level 105 MEQ/L (98-107) Carbon Dioxide Level 22.2 MEQ/L (21.0-32.0) Anion Gap 11 MEQ/L (5-15) Blood Urea Nitrogen 56 MG/DL (7-18) Creatinine 2.51 MG/DL (0.60-1.30) Estimat Glomerular Filtration 26 ML/MIN (>89) Rate Random Glucose 130 MG/DL (74-106) Calcium Level 8.3 MG/DL (8.5-10.1) Magnesium Level 2.1 MG/DL (1.5-2.5) Total Bilirubin 0.8 MG/DL (0.2-1.0) Aspartate Amino Transf 20 U/L (15-37) (AST/SGOT) Alanine Aminotransferase LESS THAN 6 (ALT/SGPT) U/L (12-78) Alkaline Phosphatase 51 U/L (45-117) Total Protein 7.0 GM/DL (6.4-8.2) Albumin 3.5 GM/DL (3.4-5.0) . Result Diagram: 05/04/17 0421 05/04/17 042 Microbiology Microbiology Date/Time Procedure Status Source Growth 05/02/17 17:22 Urine Culture - Final Complete Urine Catheterized Urine NO GROWTH IN 48 HOURS. 05/03/17 11:40 Stool Occult Blood (BARBARA) - Final Complete Stool Stool HEMOCCULT POSITIVE 05/03/17 13:55 Gram Stain - Final Resulted Sputum Endotracheal 05/03/17 13:55 Sputum Culture - Preliminary Resulted Sputum Endotracheal NO GROWTH IN 24 HOURS. 05/03/17 19:15 Aerobic Blood Culture - Preliminary Resulted Blood Peripheral NO GROWTH IN 1 DAY 05/03/17 19:15 Anaerobic Blood Culture - Preliminary Resulted Blood Peripheral NO GROWTH IN 1 DAY 05/03/17 19:22 Aerobic Blood Culture - Preliminary Resulted Blood Peripheral NO GROWTH IN 1 DAY 05/03/17 19:22 Anaerobic Blood Culture - Preliminary Resulted Blood Peripheral NO GROWTH IN 1 DAY . Imaging Last 72 hours Impressions Chest X-Ray 05/04/17 0600 Signed Impressions: Service Date/Time: Thursday, May 04, 2017 04:40 - CONCLUSION: Stable bilateral infiltrates, right greater than left. Kwaku Haro MD Chest X-Ray 05/03/17 0600 Signed Impressions: Service Date/Time: Wednesday, May 03, 2017 03:35 - CONCLUSION: Bilateral infiltrates, right greater than left, stable. Kwaku Haro MD Lower Extremity Ultrasound 05/02/17 0000 Signed Impressions: Service Date/Time: Tuesday, May 02, 2017 22:03 - CONCLUSION: The study is negative for deep venous thrombosis bilateral lower extremity. Kwaku Haro MD Chest X-Ray 05/02/17 0000 Signed Impressions: Service Date/Time: Tuesday, May 02, 2017 10:28 - CONCLUSION: Supported apparatus in good position. Increasing patchy airspace disease much worse on the right than the left. Rico Segura MD FACR . Procedures 04/21/17: Ultrasound guided paracentesis 04/28/17: Right chest tube 04/28/17: Ultrasound guided paracentesis 04/29/17: Left chest tube . Assessment and Plan Disease Oriented Problem List: (1) Diarrhea (2) HTN (hypertension) (3) Atrial fibrillation with RVR (4) Encephalopathy (5) Sepsis (6) Ascites (7) Bacterial peritonitis (8) Pneumonia (9) Pleural effusion (10) Alcohol abuse (11) Wernicke-Korsakoff syndrome (alcoholic) Symptom Scale: (1) Decrease in appetite (2) Pain (3) Dyspnea (4) Confusion Pertinent Non-Medical Issues Psychosocial: Patient is originally from [place], [place]. His parents are ; he has/had 3 siblings (Anay, Josefa, Tigre). He moved to [place] in 2012. Patient is . Patient has 1 son, Rickey malone, who is the healthcare proxy decision-make Spiritual: Raised [employer] Legal: Per [place] statutes, in the absence of written advanced directives healthcare proxy decision-making falls to the patient's son. Ethical issues impacting care: No known ethical issues impacting care. . Important Contacts Rickey Forrest III, son: [phone] (Son DOES WISH to serve has health care proxy). Anay Blount, sister: ([place]) [phone] Josefa Driver, sister: [phone] Tigre Forrest, sister: [phone] . Prognosis Patient is a 57 year old male patient with a history of liver disease with ascites requiring paracentesis secondary to EtOH abuse. Currently admitted with sepsis/bacterial peritonitis/pneumonia with pleural effusions, encephalopathy and atrial fibrillation with RVR. S/P intubation, chest tubes x 2 , and multiple paracenteses. Patient is extremely debilitated. Prognosis is poor. . Code Status: Full Code Plan * FULL CODE * Decision-making: Per [place] statutes, in the absence of written advanced directives healthcare proxy decision-making falls to the patient's son Rickey malone. Risa Pena is NOT the patient's and should not be included in any medical decision making. HCP: Rickey Forrest III, son: [phone] * Goals: Aggressive goals * Discussed with patient's nurse and Dr. Landin * Spoke to patient's son (Yasmani) and sister (Josefa) via telephone; both have plans to travel to [place] and will be available to meet with palliative care on Tuesday (05/09/2017) morning. They were both updated on the patient's clinical condition and questions answered to the best of my ability. Patient remains intubated on mechanical ventilator with fluid overload despite diuresis; worsening kidney function. Nephrology has been consulted to evaluate the patient who may need HD for fluid removal. He is not tolerating CPAP trials; patient will likely require tracheostomy for successful vent weaning. Tracheostomy was discussed with patient's son; apparently patient status post previous tracheostomy with decannulation in September,. Plan to discuss tracheostomy decision further at upcoming palliative care meeting; discussed with Dr. Landin who is agreeable to this plan. * Symptom management-decreased appetite: Tube feedings as tolerated. Albumin 3.5 on 02/01/17 Dietary following. * Symptom managementdyspnea: Status post intubation on 04/26/17 secondary to hypoxemic respiratory failure, not tolerating CPAP trials. Status post bilateral chest tube placement with ongoing fluid overload despite diuresis. Tracheostomy decision pending early next week; palliative. * Palliative care providing ongoing support and active listening. . Attestation To help prompt me to consider important information that might be impacting today's encounter and assessment, information from prior notes written by myself or my colleagues may have been "brought forward" into today's note. My signature on this note, however, is an attestation that I personally performed the exam, history, and/or decision-making noted today, and, unless otherwise indicated, the interactions with patient, family, and staff as well as the review of records all occurred today. I also attest that the listed assessment and stated plan reflect my best clinical judgment today based on the combination of historical information, prior notes, and today's exam/ interactions. When time spent is documented, it refers only to time spent today by the signer, or if indicated, combined time spent today by collaborating physician/nurse practitioner. . Adina Gonzalez May 04, 2017 12:21
--- NOTE | 2017-05-04 14:09 | HHI.CCPN ---
Subjective Remarks/Hospital Course History of Present Illness Mr. Forrest is a 56 year old male patient with cirrhosis secondary to hepatitis C and alcohol dependence, atrial fibrillation, hypertension, GERD, sleep apnea, history of central pontine myelinolysis,ascites requiring paracentesis who admitted to [facility] with on 04/20/2017 for evaluation of decreased oral intake, probable sepsis and ascites. An EKG on admission showed atrial fibrillation with RVR. His initial WBC count was 15K. Infectious disease was consulted and patient was placed on broad-spectrum antibiotic. Recently underwent paracentesis by IR on 04/21/17 with the fluid was described as loculated and septated. Fluid culture grew MSSA. 3 out of 4 blood cultures on 04/20/17 growing MSSA. For Atrial fibrillation with RVR patient was placed on Cardizem drip. Paracentesis on 04/21/2017 650 ccfluid removed. Peritoneal WBC - 42858; peritoneal RBC - 411. Patient had been receiving Ancef and vancomycin per ID recommendation Critical care medicine was consulted today a.m. as patient was increasingly short of breath and dyspneic and hypoxemic. Patient was placed on BiPAP 15/7 at 80% oxygen. I immediately evaluated the patient he appeared to be in moderate to severe distress. Bedside ultrasound showed large right-sided pleural effusion. I gave him 25 g of albumin and performed thoracentesis with 2 L of fluid removal. Chest x-ray postprocedure showed significant clearing of the right lung field but increased edema involving the left lung field. It is possible that patient has developed reexpansion pulmonary edema, I gave him 2 mg of IV bumex. Repeat Chest x-ray continues to show bilateral pulmonary edema , I have signed out this case to Dr. Bob who will most likely intubated the patient. Subjective subjective: 04/26: The patient required intubation, due to hypoxemic respiratory failure last a.m.. Patient still requires has high oxygen and ventilatory requirements,PEEP increased to 10. Aggressive diuresis continues. The patient converted to normal sinus rhythm yesterday afternoon amiodarone has been discontinued Cardizem has been discontinued. The patient continues on metoprolol twice a day. 04/27: Decreased urinary output overnight. Bumex 1 mg/hour instituted. Plan for repeat paracentesis procedure. The patient remains normal sinus rhythm. 04/28: Afebrile. Paracentesis today only 300 cc. Possibly slightly loculated. Weaning back loop diuretic in light of worsening renal function. Plan for right-sided pigtail catheter for recurrent pleural effusion. In attempt to wean off ventilator. Tolerating tube feeding at 10 cc an hour 04/29: Patient had a IR placed 10 Belarusian chest tube on the right side with 1.7 L drained. Urine output 3.3 L in 24 hours. Remains severely encephalopathic. Bedside US shows moderate L effusion 81/2: Remains intubated. Developed Afib with RVR, rate 150-160. Cardizem gtt after 20 mg IVP with no improvement. Metoprolol 5 mg IVPx1. Start Amiodarone if not improved (already on full anticoagulation. Chest x-ray today shows bilateral pigtail chest tubes in place and tiny right apical pneumothorax (R pigtail was placed by radiology). Patient remains encephalopathy despite being off sedation 05/01: Remains in normal sinus rhythm, rate controlled, on IV Cardizem and IV amiodarone. Patient remains encephalopathy, but more spontaneous eye opening. Lovenox change to IV heparin due to worsening renal failure. Also IV Bumex held due to increasing creatinine 05/02: Remains intubated, off sedation. More awake. Weakly following x4. UO 800 ml in 24 hours. Give 2 mg IV Bumex. Change Amio to PO Subjective 05/03: Continues to spike high fever 102.5. CXR despite bilateral chest tube and 1.6L output in 24 hours shows R> L consolidation/effusion. Creat worsening. Will hold Diuretics. Send sputum and blood cultures, give single dose of vanc and cefepime. D/W Dr. Gonzalez. Hb 6.9, will give 1U PRBC. Platelet count steadily improving 94 today 05/04: Continues to spike fever 101.5. Not tolerating CPAP. Back to Afib with RVR. Chest tube output 1.3L combined. Creat 2.5, UO 580 ml in 24 hours. Consult nephrology. Doubt successful vent weaning without trach. Will also consult nephrology Objective Vital Signs Date Time Temp Pulse Resp B/P Pulse Ox O2 Delivery O2 Flow Rate FiO2 05/04/17 12:30 40 05/04/17 12:00 100.5 130 18 145/80 100 Intake and Output 05/03/17 05/03/17 05/03/17 07:59 15:59 23:59 Intake Total 1078 ml 1222 ml 1154 ml Output Total 560 ml 969 ml 885 ml Balance 518 ml 253 ml 269 ml Result Diagram: 05/04/17 0421 05/04/17 0421 Other Results Microbiology Date/Time Procedure Status Source Growth 05/02/17 17:22 Urine Culture - Final Complete Urine Catheterized Urine NO GROWTH IN 48 HOURS. 05/03/17 11:40 Stool Occult Blood (BARBARA) - Final Complete Stool Stool HEMOCCULT POSITIVE Imaging Last Impressions Chest X-Ray 04/27/17 0600 Signed Impressions: Service Date/Time: Thursday, April 27, 2017 04:29 - CONCLUSION: Overall stable appearance of the chest. Watson Bermeo MD Upper Extremity Ultrasound 04/23/17 0000 Signed Impressions: Service Date/Time: Sunday, April 23, 2017 10:50 - CONCLUSION: DVT in the right upper extremity seen in the right basilic vein. There is also superficial thrombus in the right cephalic vein. Mushtaq Brown MD Cyst Biopsy Asp-Paracentesis US 04/21/17 0000 Signed Impressions: Service Date/Time: April 11:07 - CONCLUSION: Uncomplicated ultrasound guided paracentesis. Please note that the fluid throughout the abdomen is extremely complex with septations. This can be seen when the fluid has become infected or is complicated by hemorrhage or malignancy. Mushtaq Alexis MD Abdomen/Pelvis CT 04/20/17 0000 Signed Impressions: Service Date/Time: Thursday, April 20, 2017 13:56 - CONCLUSION: 1. Moderate volume free fluid in the abdomen and pelvis with possible associated peritoneal thickening. Thickening of the peritoneal lining can be seen with infection. 2. Large right and moderate size left pleural effusion with associated compressive atelectasis. 3. There is an umbilical hernia containing fluid and fat and fluid containing hernia superior and to the left of the umbilicus. This hernia also contains a portion of the transverse colon. 4. Nonacute findings include changes related to chronic liver disease including recanalized paraumbilical vein and bilateral gynecomastia. 5. Other nonacute findings include cholelithiasis and moderate atherosclerotic disease. Mushtaq Alexis MD Objective Remarks GENERAL: 57-year-old critically ill male, currently intubated not on sedation for >5 days SKIN: Warm/dry. No rash/well perfused. Ecchymosis bilateral upper and lower extremities HEAD: Atraumatic. Normocephalic. EYES: Pupils equal and round about 4 mm bilaterally and reactive. No scleral icterus. ENT: No nasal bleeding or discharge. Orotracheally intubated NECK: Trachea midline. No JVD. CARDIOVASCULAR: Atrial fibrillation with rapid ventricular response. S1, S2. No S4. No rub. Systolic murmur left lower border sternum 2/6 RESPIRATORY: Air entry diminished bilateral lower lung taet. Few basilar crackles. Bilateral chest tubes in place with no air leak. 1320 ML total output in 24 hours. Tachypneic on CPAP GASTROINTESTINAL: Abdomen soft, distended from ascites, large ventral hernia. Hypoactive bowel sounds. : Positive scrotal edema. Palmer catheter in place MUSCULOSKELETAL: 1+ edema bilateral upper and lower extremity/anasarca NEUROLOGICAL: Intubated and not on sedation. Spontaneous eye opening today. Follows commands x4 but very weak Procedures Paracentesis Thoracentesis Right pigtail chest tube placement Date of Insertion: Apr 25, 2017 A/P Assessment and Plan Neuro/Psych Acute metabolic encephalopathy Hx of ETOH abuse History of central pontine myelinolysis with quadriparesis --Monitor mental status closely, metabolic encephalopathy secondary to sepsis --Improvement in neurological status with spontaneous eye opening, following x4 weakly --Currently off all sedation DCd propofol 04/29, Goal of RASS 0 --MRI brain 04/29 shows resolution of previous osmotic demyelination syndrome CVS Pulmonary edema ? Reexpansion pulmonary edema versus ARDS Atrial fibrillation with RVR -- Lovenox changed to to IV heparin on 05/01/17 due to worsening renal function -- NSR now. Off Cardizem infusion 05/01 and DCd Amiodarone gtt 05/02 and start tarted Amio 200 mg daily 05/02- --Back on amiodarone GTT for A. fib with RVR -- Continue metoprolol, 50mg po q8 -- 2d Echo no evidence of endocarditis, normal ejection fraction 60%. Trace MR. Moderate TR. --Currently on IV albumin 25 g every 8 hours Pulmonary Acute hypoxemic respiratory failure Bilateral pigtail chest tubes for large pleural effusions Probable HCAP Tiny R apical pneumothorax, now resolved - Status post right thoracentesis and 2 L fluid removed with IV albumin infusing 04/25 - Patient developed reexpansion pulmonary edema after thoracentesis - Intubated 04/25 ACV ventilation 18/500/10/40. vent day 10 - s/p R pigtail CT 04/28 with IR, tiny R apical pneumothorax-now resolved - s/p left chest tube placement 04/29 . Total output 1.6L over 24 hours - Ventilator bundle. - DuoNeb every 6 hours with albuterol aerosols every 2 when necessary - Previous tracheostomy status post decannulation 2015 - No Spontaneous breathing trials today again, may need trach again due to anticipated prolonged vent support - Sputum and blood cx follow up GI Spontaneous bacterial peritonitis with MSSA Cirrhotic liver disease secondary to ETOH abuse and Hepatitis C genotype IIIa Protein calorie malnutrition/moderate Ascitesmoderate -- Prior U/S guided paracentesis 04/21/17, fluid was loculated and septated -- Exudative fluid growing MSSA indicated with peritonitis -- Antibiotics per ID -- Status post paracentesis 04/28 300 cc removed. Culture sent. Continues to drain from site -- Currently on Jevity 1.5 goal 60 cc an hour. -- Pantoprazole for GI prophylaxis -- Outpatient workup/treatment for hepatitis C genotype IIIa - [id number] iu per milliliter Renal Acute kidney injury -- Palmer catheter in place to monitor I/Os in critically ill patient -- May need hemodialysis for volume removal if renal function deteriorates. Will consult nephrology -- Creat 2.5 today 05/04. Oliguric Endocrine/FEN: Hypokalemia Hypophosphatemia Hypo-magnesium -- Electrolyte replacement protocol Heme Anemia Coagulopathy Thrombocytopenia Right upper extremity superficial thrombosis basilic/cephalic veins -- Anemia, and coagulopathy most likely secondary to chronic liver disease / ETOH use, severe sepsis and consumptive from thrombophlebitis -- Transfuse 1U PRBC today. stool for Hemoccult +ve. Platelet count improving -- Heparin gtt ID: MSSA bacteremia Spontaneous bacterial peritonitis -- Pertinent cultures: - Blood 04/20: 3/4 bottles MSSA - Ascitic fluid 04/21: MSSA - Cultures from 05/02 neg to date Antibiotics per ID. continue renally dosed vancomycin cefepime and Diflucan Prophylaxis: GI -pantoprazole DVT - SCDs; and heparin gtt Discussed with bedside CC RN CCT 35 MIN Patient remains critically ill with severe encephalopathy respiratory failure and volume overload along with severe sepsis. Now with bilateral chest tubes and diuresis obtaining negative balance but still remains fluid overloaded. Creatinine worsening with diuresis. May need hemodialysis for fluid removal Seven Landin MD May 04, 2017 14:09 Seven Landin MD May 04, 2017 14:09
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
--- NOTE | 2017-05-04 16:13 | PD.WCN.NOT ---
Wound Consult Description: Coccyx deep tissue injury opening to full thickness skin loss that is moisture and pressure related Communicated with: [address] 5th floor [facility] and Doctor Mushtaq Recommendation: Please cleanse buttock, coccyx and sacral area with soap and water gently using soft cloths. Pat dry and apply thick layer of calazime barrier cream BID and PRN. Please continue to turn patient every 2 hours and PRN for comfort Will reassess patient next week for further recommendations Additional Information: Patient seen earlier on [facility] for evaluation of sacral wound management. Patinet turned to R side with the assistance of thread clipper, Ariana RN C and administrative underwriter to reveal DTI that is opening to full thickness skin loss. Wound measures 7 cm x 7 cm. Wound is noted with ~30% non blanchable area of purple discoloration, ~ 40% red non granulation tissue and ~30% yellow tissue. Periwound presents with partial thickness skin loss and blanchable erythema that appears to be related to incontinence associated dermatitis. Patient has Dignisheild in place for loose stools and is laying on Keesha [facility] standard air bed. Etilogy appears to be mixed moisture, pressure and friction. Cleansed wound with normal saline and applied Calazime barrier cream. Pillow placed under patient's L buttock area to offload pressure. Wound care will continue to follow patient until discharge [facility] May 04, 2017 16:13
--- NOTE | 2017-05-04 16:54 | PD.CONS ---
[facility] Service Nephrology Consult Requested By Dr. Landin Reason for Consult Acute Renal Failure Primary Care Physician Mushtaq Espinoza MD History of Present Illness This is a 57 y/o male who was admitted on 04/20. He came in for fever, decreased appetite, and diarrhea. PMH of cirrhosis secondary to hepatitis C and alcohol dependence, atrial fibrillation, hypertension, GERD, sleep apnea, and history of central pontine myelinolysis. He had ascites on arrival that required paracentesis, and the fluid culture was positive for MSSA. ID was consulted, and he is on cefepime and Vancomycin. His renal function was normal on arrival, creatinine was 0.97. On 04/27 it was 1.31, and has gradually increased to 2.51 today. His urine output has dropped, now he is oliguric. He also developed pleural effusions requiring thoracentesis and later had bilateral chest tubes placed (right on 04/28, left on 04/29). He is being treated for SBP and sepsis. He is intubated, awake, but does not follow commands. He has a large ventral hernia. He is significantly fluid overloaded, at admission he weighed 67 kg and today is 83 kg. His lungs sounds are course and he has not tolerated CPAP very well. He is on Cardizem, amiodarone, and heparin gtts. He is not on pressors. We were consulted for renal management. (Carolina Brandon) Review of Systems ROS Limitations: Intubated, Altered Mental Status (Carolina Brandon) Past Family Social History Allergies: Coded Allergies: No Known Allergies (Unverified , 12/06/16) Past Medical History Afib HTN cirrhosis arthritis central pontine myelinolysis History of respiratory failurerequiring mechanical ventilation, status post tracheostomy, decannulationin September 2015 hospitalization History of alcohol abuse Past Surgical History Trach and peg, now removed B/L chest tubes this admission Reported Medications Reviewed in EMR Active Ordered Medications Current Medications Medications (Trade) Dose Ordered Sig/Rhea Route Start Time Stop Time Status Last Admin Ondansetron HCl 4 mg 4 mg Q8HR PRN IV PUSH 04/20/17 16:45 (NS 1000 ml Inj) 1,000 ml @ 0 mls/hr Q24H IV 04/21/17 13:45 04/25/17 14:03 Miscellaneous Information Patient in critical care unit? Ass... Q361D .XX 04/22/17 02:45 04/22/17 02:45 (Romazicon Inj) 0.2 mg Q1M PRN IV PUSH 04/23/17 08:45 (Xifaxan) 550 mg BID PO 04/23/17 21:00 05/04/17 09:41 (Lactulose Liq) 30 ml DAILY PO 04/24/17 09:00 05/04/17 09:40 (Peridex 0.12% Liq) 15 ml BID@08,20 MT 04/25/17 20:00 05/04/17 08:00 (Bumex Inj) 1 mg BID@,18 IV PUSH 04/28/17 18:00 Hold 04/30/17 17:50 (Mag-Ox) 400 mg Q12HR PO 04/28/17 21:00 05/04/17 09:00 (KCl Powder) 20 meq Q12HR NG 04/28/17 21:00 05/04/17 09:00 (Protonix Inj) 40 mg DAILY IV PUSH 04/28/17 11:30 05/04/17 09:41 (Lacrilube Opht Oint) 1 applic Q12HR EACH EYE 04/28/17 21:00 05/04/17 09:00 Albumin Human 25 gm 25 gm Q8H IV 04/29/17 10:00 05/04/17 09:43 (Heparin-D5W Inj) 250 ml @ 0 mls/hr TITRATE IV 05/01/17 06:30 05/04/17 01:41 (Lopressor) 50 mg Q8H PO 05/01/17 17:00 05/04/17 15:44 (Cordarone) 200 mg DAILY PO 05/02/17 10:15 05/04/17 16:16 Acetaminophen 650 mg 650 mg Q6H PRN PO 05/02/17 21:00 Cefepime HCl 2000 mg/Sodium Chloride 100 ml @ 200 mls/hr Q12H IV 05/03/17 13:00 05/04/17 12:13 Amiodarone HCl 450 mg/Dextrose 250 ml @ 0 mls/hr CONTINUOUS IV 05/03/17 18:15 05/04/17 16:27 (Cardizem Inj/NS Inj) 125 ml @ 0 mls/hr TITRATE IV 05/03/17 23:45 05/04/17 16:28 Family History unable to obtain Social History unable to obtain (Carolina Brandon) Physical Exam Vital Signs Vital Signs Date Time Temp Pulse Resp B/P Pulse Ox O2 Delivery O2 Flow Rate FiO2 05/04/17 14:00 40 05/04/17 14:00 127 05/04/17 12:30 40 05/04/17 12:00 40 05/04/17 12:00 100.5 130 18 145/80 100 05/04/17 12:00 127 05/04/17 11:34 100 40 05/04/17 10:00 117 05/04/17 08:00 99.7 127 18 117/62 100 05/04/17 08:00 117 05/04/17 08:00 40 05/04/17 07:30 100 40 05/04/17 07:30 40 05/04/17 06:00 107 05/04/17 05:31 127 05/04/17 04:38 100 40 05/04/17 04:00 40 05/04/17 04:00 99.7 127 18 123/74 100 05/04/17 02:00 130 05/04/17 01:24 100 40 05/04/17 00:00 141 05/04/17 00:00 40 05/04/17 00:00 101.0 141 24 134/68 99 05/03/17 22:00 137 05/03/17 21:24 100 40 05/03/17 20:00 98.6 125 22 123/60 100 05/03/17 20:00 40 05/03/17 20:00 125 05/03/17 18:00 136 Physical Exam Chronically ill appearing Caucaisan male awake on ventilator, copious oral secretions CV: S1/S2, tachy in 130s, BP is normal Lungs: course, rhonchi throughout, vented Abd: round, large ventral hernia, non tender, normal bowel sounds Ext: 2-3+ edema Skin: sacral DTI Laboratory Laboratory Tests Test 05/04/17 04:21 White Blood Count 6.6 Red Blood Count 2.68 Hemoglobin 7.5 Hematocrit 22.0 Mean Corpuscular Volume 82.2 Mean Corpuscular Hemoglobin 28.0 Mean Corpuscular Hemoglobin 34.1 Concent Red Cell Distribution Width 18.7 Platelet Count 102 Mean Platelet Volume 8.8 Neutrophils (%) (Auto) 82.0 Lymphocytes (%) (Auto) 7.5 Monocytes (%) (Auto) 7.6 Eosinophils (%) (Auto) 2.0 Basophils (%) (Auto) 0.9 Neutrophils # (Auto) 5.4 Lymphocytes # (Auto) 0.5 Monocytes # (Auto) 0.5 Eosinophils # (Auto) 0.1 Basophils # (Auto) 0.1 CBC Comment DIFF FINAL Differential Comment Activated Partial 56.5 Thromboplast Time Sodium Level 138 Potassium Level 3.6 Chloride Level 105 Carbon Dioxide Level 22.2 Anion Gap 11 Blood Urea Nitrogen 56 Creatinine 2.51 Estimat Glomerular Filtration 26 Rate Random Glucose 130 Calcium Level 8.3 Magnesium Level 2.1 Total Bilirubin 0.8 Aspartate Amino Transf 20 (AST/SGOT) Alanine Aminotransferase LESS THAN 6 (ALT/SGPT) Alkaline Phosphatase 51 Total Protein 7.0 Albumin 3.5 Date/Time Procedure Status Source Growth 05/03/17 19:22 Aerobic Blood Culture - Preliminary Resulted Blood Peripheral NO GROWTH IN 1 DAY 05/03/17 19:22 Anaerobic Blood Culture - Preliminary Resulted Blood Peripheral NO GROWTH IN 1 DAY 05/03/17 13:55 Gram Stain - Final Resulted Sputum Endotracheal 05/03/17 13:55 Sputum Culture - Preliminary Resulted Sputum Endotracheal NO GROWTH IN 24 HOURS. 05/03/17 11:40 Stool Occult Blood (BARBARA) - Final Complete Stool Stool HEMOCCULT POSITIVE 05/02/17 17:22 Urine Culture - Final Complete Urine Catheterized Urine NO GROWTH IN 48 HOURS. (Carolina Brandon [facility]) Result Diagram: 05/04/17 0421 05/04/17 0421 Imaging Last Impressions Chest X-Ray 05/04/17 0600 Signed Impressions: Service Date/Time: Thursday, May 04, 2017 04:40 - CONCLUSION: Stable bilateral infiltrates, right greater than left. Kwaku Haro MD Lower Extremity Ultrasound 05/02/17 0000 Signed Impressions: Service Date/Time: Tuesday, May 02, 2017 22:03 - CONCLUSION: The study is negative for deep venous thrombosis bilateral lower extremity. Kwaku Haro MD Brain MRI 04/29/17 0000 Signed Impressions: Service Date/Time: Saturday, April 29, 2017 10:08 - CONCLUSION: 1. No evidence of acute infarct, hemorrhage, mass or edema. 2. No evidence of pontine myelinolysis. 3. 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 Escobar Antony MD Chest Tube Insertion 04/28/17 1555 Signed Impressions: Service Date/Time: April 15:51 - CONCLUSION: Uncomplicated chest tube placement as above. Escobar Antony MD Chest CT 04/28/17 0000 Signed Impressions: Service Date/Time: April 15:51 - CONCLUSION: 1. Bilateral pleural effusions as described. 2. Extensive patchy consolidating infiltrates both lungs. 3. Cardiomegaly. 4. Ascites. Escobar Antony MD Abdomen X-Ray 04/28/17 0000 Signed Impressions: Service Date/Time: April 11:21 - CONCLUSION: Nonspecific bowel gas pattern with some mild gaseous distention of the colon. There is an NG tube in stomach. Srinivasan Ivory MD Upper Extremity Ultrasound 04/23/17 0000 Signed Impressions: Service Date/Time: Sunday, April 23, 2017 10:50 - CONCLUSION: DVT in the right upper extremity seen in the right basilic vein. There is also superficial thrombus in the right cephalic vein. Mushtaq Brown MD Cyst Biopsy Asp-Paracentesis US 04/21/17 0000 Signed Impressions: Service Date/Time: April 11:07 - CONCLUSION: Uncomplicated ultrasound guided paracentesis. Please note that the fluid throughout the abdomen is extremely complex with septations. This can be seen when the fluid has become infected or is complicated by hemorrhage or malignancy. Mushtaq Alexis MD Abdomen/Pelvis CT 04/20/17 0000 Signed Impressions: Service Date/Time: Thursday, April 20, 2017 13:56 - CONCLUSION: 1. Moderate volume free fluid in the abdomen and pelvis with possible associated peritoneal thickening. Thickening of the peritoneal lining can be seen with infection. 2. Large right and moderate size left pleural effusion with associated compressive atelectasis. 3. There is an umbilical hernia containing fluid and fat and fluid containing hernia superior and to the left of the umbilicus. This hernia also contains a portion of the transverse colon. 4. Nonacute findings include changes related to chronic liver disease including recanalized paraumbilical vein and bilateral gynecomastia. 5. Other nonacute findings include cholelithiasis and moderate atherosclerotic disease. Mushtaq Alexis MD (Carolina Brandon) Assessment and Plan Problem List: (1) Acute renal failure Plan: In a patient with normal renal function on arrival HILARY multifactorial. It appears early in the admission he was tachycardic and had episodes of hypotension, may have resulted in renal hypoperfusion and possibly ATN also may have renal hypoperfusion secondary to sepsis syndrome at this time his electrolytes are not abnormal he is positive nearly 20 kg since arrival, urine output has slowed he was given albumin I will restart Bumex 2 mg IV BID, monitor response It is possible he may require dialysis for fluid removal tomorrow monitor renal function, avoid IVF and nephrotoxic medications follow vancomycin levels (2) Bacterial peritonitis Plan: ID has evaluated MSSA, on cefepime and vancomycin monitor clinically he is on tube feeding through OG tube (3) Atrial fibrillation with RVR Plan: RVR may be due to fever, infection, systemic illness he is on amiodarone and Cardizem gtts, on heparin for anticoagulation blood pressure is acceptable monitor (4) HTN (hypertension) Plan: continue medications as ordered follow blood pressure (5) Anemia Plan: with coagulopathy, possibly related to liver disease he is Hemoccult positive transfused yesterday with PRBC follow Hb (Carolina Brandon) Assessment and Plan patient was seen and examined. Agree with above assessment and plan. I have independently reviewed the chart, all the notes, and formulated the plan. Diuretics reinitiated today. Minimize IVF. Etiology of HILARY could be ATN, or AIN. Consider measuring intraabdominal pressure. Prognosis is very poor. ( Feng Garcia MD) Carolina Brandon May 04, 2017 16:54 Feng Garcia MD May 04, 2017 20:12
--- NOTE | 2017-05-04 17:28 | PD.ONC.PN ---
Subjective Subjective Remarks Tmax 101.0 overnight. Pt on CPAP trials. No bleeding per RN Objective Data Date Time Temp Pulse Resp B/P Pulse Ox O2 Delivery O2 Flow Rate FiO2 05/04/17 16:46 100 40 05/04/17 14:00 40 05/04/17 14:00 127 05/04/17 12:30 40 05/04/17 12:00 40 05/04/17 12:00 100.5 130 18 145/80 100 05/04/17 12:00 127 05/04/17 11:34 100 40 05/04/17 10:00 117 05/04/17 08:00 99.7 127 18 117/62 100 05/04/17 08:00 117 05/04/17 08:00 40 05/04/17 07:30 100 40 05/04/17 07:30 40 05/04/17 06:00 107 05/04/17 05:31 127 05/04/17 04:38 100 40 05/04/17 04:00 40 05/04/17 04:00 99.7 127 18 123/74 100 05/04/17 02:00 130 05/04/17 01:24 100 40 05/04/17 00:00 141 05/04/17 00:00 40 05/04/17 00:00 101.0 141 24 134/68 99 05/03/17 22:00 137 05/03/17 21:24 100 40 05/03/17 20:00 98.6 125 22 123/60 100 05/03/17 20:00 40 05/03/17 20:00 125 05/03/17 18:00 136 05/04/17 05/04/17 05/04/17 07:00 15:00 23:00 Intake Total 901 ml 1061 ml Output Total 770 ml 950 ml Balance 131 ml 111 ml Result Diagram: 05/04/17 0421 05/04/17 042 Laboratory Results Laboratory Tests Test 05/04/17 04:21 White Blood Count 6.6 TH/MM3 Red Blood Count 2.68 MIL/MM3 Hemoglobin 7.5 GM/DL Hematocrit 22.0 % Mean Corpuscular Volume 82.2 FL Mean Corpuscular Hemoglobin 28.0 PG Mean Corpuscular Hemoglobin 34.1 % Concent Red Cell Distribution Width 18.7 % Platelet Count 102 TH/MM3 Mean Platelet Volume 8.8 FL Neutrophils (%) (Auto) 82.0 % Lymphocytes (%) (Auto) 7.5 % Monocytes (%) (Auto) 7.6 % Eosinophils (%) (Auto) 2.0 % Basophils (%) (Auto) 0.9 % Neutrophils # (Auto) 5.4 TH/MM3 Lymphocytes # (Auto) 0.5 TH/MM3 Monocytes # (Auto) 0.5 TH/MM3 Eosinophils # (Auto) 0.1 TH/MM3 Basophils # (Auto) 0.1 TH/MM3 CBC Comment DIFF FINAL Differential Comment Activated Partial 56.5 SEC Thromboplast Time Sodium Level 138 MEQ/L Potassium Level 3.6 MEQ/L Chloride Level 105 MEQ/L Carbon Dioxide Level 22.2 MEQ/L Anion Gap 11 MEQ/L Blood Urea Nitrogen 56 MG/DL Creatinine 2.51 MG/DL Estimat Glomerular Filtration 26 ML/MIN Rate Random Glucose 130 MG/DL Calcium Level 8.3 MG/DL Magnesium Level 2.1 MG/DL Total Bilirubin 0.8 MG/DL Aspartate Amino Transf 20 U/L (AST/SGOT) Alanine Aminotransferase LESS THAN 6 U/L (ALT/SGPT) Alkaline Phosphatase 51 U/L Total Protein 7.0 GM/DL Albumin 3.5 GM/DL Culture Results Microbiology Date/Time Procedure Status Source Growth 05/02/17 17:22 Urine Culture - Final Complete Urine Catheterized Urine NO GROWTH IN 48 HOURS. 05/03/17 11:40 Stool Occult Blood (BARBARA) - Final Complete Stool Stool HEMOCCULT POSITIVE 05/03/17 13:55 Gram Stain - Final Resulted Sputum Endotracheal 05/03/17 13:55 Sputum Culture - Preliminary Resulted Sputum Endotracheal NO GROWTH IN 24 HOURS. 05/03/17 19:15 Aerobic Blood Culture - Preliminary Resulted Blood Peripheral NO GROWTH IN 1 DAY 05/03/17 19:15 Anaerobic Blood Culture - Preliminary Resulted Blood Peripheral NO GROWTH IN 1 DAY 05/03/17 19:22 Aerobic Blood Culture - Preliminary Resulted Blood Peripheral NO GROWTH IN 1 DAY 05/03/17 19:22 Anaerobic Blood Culture - Preliminary Resulted Blood Peripheral NO GROWTH IN 1 DAY Imaging Studies Last 24 hours Impressions Chest X-Ray 05/04/17 0600 Signed Impressions: Service Date/Time: Thursday, May 04, 2017 04:40 - CONCLUSION: Stable bilateral infiltrates, right greater than left. Kwaku Haro MD Administered Medications Medications (Trade) Dose Ordered Sig/Rhea Route PRN Reason Start Time Stop Time Status Last Admin Dose Admin Sodium Chloride (NS 1000 ml Inj) 1,000 ml @ 0 mls/hr Q24H IV 04/21/17 13:45 04/25/17 14:03 Miscellaneous Information Patient in critical care unit? Ass... Q361D .XX 04/22/17 02:45 04/22/17 02:45 Rifaximin (Xifaxan) 550 mg BID PO 04/23/17 21:00 05/04/17 09:41 Lactulose (Lactulose Liq) 30 ml DAILY PO 04/24/17 09:00 05/04/17 09:40 Chlorhexidine Gluconate (Peridex 0.12% Liq) 15 ml BID@08,20 MT 04/25/17 20:00 05/04/17 08:00 Magnesium Oxide (Mag-Ox) 400 mg Q12HR PO 04/28/17 21:00 05/04/17 09:00 Potassium Chloride (KCl Powder) 20 meq Q12HR NG 04/28/17 21:00 05/04/17 09:00 Pantoprazole Sodium (Protonix Inj) 40 mg DAILY IV PUSH 04/28/17 11:30 05/04/17 09:41 Artificial Tears (Lacrilube Opht Oint) 1 applic Q12HR EACH EYE 04/28/17 21:00 05/04/17 09:00 Albumin Human 25 gm 25 gm Q8H IV 04/29/17 10:00 05/04/17 09:43 Heparin Sodium/ Dextrose (Heparin-D5W Inj) 250 ml @ 0 mls/hr TITRATE IV 05/01/17 06:30 05/04/17 01:41 Metoprolol Tartrate (Lopressor) 50 mg Q8H PO 05/01/17 17:00 05/04/17 15:44 Amiodarone HCl 200 mg 200 mg DAILY PO 05/02/17 10:15 05/04/17 16:16 Cefepime HCl 2000 mg/Sodium Chloride 100 ml @ 200 mls/hr Q12H IV 05/03/17 13:00 05/04/17 12:13 Amiodarone HCl 450 mg/Dextrose 250 ml @ 0 mls/hr CONTINUOUS IV 05/03/17 18:15 05/04/17 16:27 Diltiazem HCl/ Sodium Chloride (Cardizem Inj/NS Inj) 125 ml @ 0 mls/hr TITRATE IV 05/03/17 23:45 05/04/17 16:28 Objective Remarks GENERAL: Intubated patient, supine in bed on CPAP trials. SKIN: Warm and dry. HEAD: Normocephalic. EYES: No injection or drainage. NECK: Supple, trachea midline. LYMPHATIC: No adenopathy. CARDIOVASCULAR: +S1/S2; tachycardia. RESPIRATORY: coarse rhonchi. on CPAP; pigtail catheter along left posterior thorax, draining clear yellow fluid. GASTROINTESTINAL: Abdomen distended, large mass along epigastric region EXTREMITIES: No cyanosis NEUROLOGICAL: Patient making eye contact; attempts to talk over ET tube. Assessment/Plan Problem List: (1) Thrombocytopenia Status: Acute Plan: 05/04: HIT negative. Thrombocytopenia likely due to MSSA/Cephazolin. Continue to monitor CBC. --multifactorial most likely due to staph aureus sepsis and/or antibiotic and cephazolin. --doubt HIT. --h/o Hepatitis C --++Cirrhosis of the liver with ascites. --Once the infection clears up, expect his platelet count to improve. --cephazolin can also cause severe thrombocytopenia. (2) Sepsis Status: Acute Plan: --on abx per primary team --Methicillin-sensitive staph aureus sepsis as well as subacute bacterial peritonitis. Assessment 57y/o male admitted with sepsis, possible spontaneous bacterial peritonitis. hematology consulted for evaluation of thrombocytopenia. history of arthritis, atrial fibrillation, hypertension, gastroesophageal reflux disease and central pontine myelinolysis. He also has a history of alcoholism, hepatitis C, and liver cirrhosis. The patient has had previously multiple paracentesis for his end-stage liver disease. h/o Tracheostomy. G-tube placement last year. Attending Statement No bleeding Plat are coming up HIT is neg Thrombocytopenia is due to MSSA sepsis and cefazolin The exam, history, and the medical decision-making described in the above note were completed with the assistance of the mid-level provider. I reviewed and agree with the findings presented. I attest that I had a [id number] encounter with the patient on the same day, and personally performed and documented my assessment and findings in the medical record. Problem Qualifiers (1) Sepsis: Qualified Code: A41.9 - Sepsis, due to unspecified organism Marixa Faust May 04, 2017 17:28 Carli Hope MD May 05, 2017 05:54
[2017-05-04] MEDS: BUMETANIDE INJ 1 MG/4 ML VIAL IV PUSH SCH (17:45)
[2017-05-05] VITALS (23 sets, daily range): BP systolic 105–154; BP diastolic 63–81; PULSE 96–125; RESP 20–27; TEMP 98.1–99.3; O2SAT 94–100
[2017-05-05] MEDS: ALBUMIN HUMAN 5% 25 GM/500 ML BOTTLE IV SCH ×3 (01:43→18:14)
[2017-05-05] MEDS: CEFEPIME INJ 2,000 MG in SODIUM CHLORIDE 0.9% INJ 100 ML IV SCH ×2 (01:43→12:25)
[2017-05-05] MEDS: METOPROLOL TARTRATE 50 MG TAB PO SCH ×3 (01:43→18:14)
[2017-05-05] MEDS: ARTIFICIAL TEARS OPTH OINT 3.5 APPLIC/3.5 GM TUBO EACH EYE SCH ×3 (01:44→20:59)
[2017-05-05] MEDS: RESP: ALBUTEROL 2.5 MG/IPRATROPIUM 0.5 MG NEB (SCH) NEB ×2 (01:52→08:22)
[2017-05-05] MEDS: HEPARIN-D5W 25,000 U/250 ML 250 ML IV SCH (04:41)
--- NOTE | 2017-05-05 06:07 | RADRPT ---
EXAM DATE/TIME: 05/05/2017 04:04 [place] COMPARISON: CHEST SINGLE AP, May 04, 2017, 4:40. INDICATIONS : Shortness of breath, possible pulmonary disease. MEDICAL HISTORY : Pancreatitis. Arthritis. Cirrhosis. Hypertension Sleep apnea SURGICAL HISTORY : None. ENCOUNTER: Subsequent ACUITY: 2 weeks PAIN SCORE: Non-responsive. LOCATION: Bilateral chest FINDINGS: ET tube tip well above the adelita. Gastric tube traverses the [id number]. Persistent bilateral m id and lower lung infiltrates, right greater than left. Both hemidiaphragms remain well delineated. Bilateral pigtail catheters remain projected in the lower chest. CONCLUSION: Stable bilateral partially consolidated infiltrates. Kwaku Haro MD on May 05, 2017 at 6:05 Board Certified Radiologist. This report was verified electronically.
[2017-05-05 06:27] LABS: AUTOMATED NEUTROPHIL # 4.9 TH/MM3 (1.8-7.7); BASOPHIL # 0.1 TH/MM3 (0-0.2); BASOPHIL % 0.9 % (0.0-2.0); EOSINOPHIL # 0.1 TH/MM3 (0-0.4); EOSINOPHIL % 1.9 % (0.0-4.0); HEMATOCRIT 21.7 % (39.0-51.0); HEMO FLAGS DIFF FINAL; LYMPH % 5.9 % (9.0-44.0); LYMPHOCYTE # 0.4 TH/MM3 (1.0-4.8); MEAN CELL VOLUME 85.6 FL (80.0-100.0); MEAN CORPUSCULAR HEMOGLOBIN 28.2 PG (27.0-34.0); MEAN CORPUSCULAR HGB CONC 32.9 % (32.0-36.0); MONO % 9.4 % (0.0-8.0); NEUT % 81.9 % (16.0-70.0); PLATELET COUNT 117 TH/MM3 (150-450); RED BLOOD COUNT 2.54 MIL/MM3 (4.50-5.90); RED CELL DISTRIBUTION WIDTH 19.8 % (11.6-17.2)
[2017-05-05 06:28] LABS: APTT (PATIENT) 61.8 SEC (24.3-30.1)
[2017-05-05] MEDS: DILTIAZEM 125 MG/NS 100 ML IV SCH ×4 (06:29→15:20)
[2017-05-05] MEDS: AMIODARONE INJ 450 MG in D5W (EXCEL BAG) 241 ML IV SCH ×2 (06:29→21:01)
[2017-05-05 06:43] LABS: ANION GAP 9 MEQ/L (5-15); AST (GOT) 21 U/L (15-37); BICARBONATE 21.5 MEQ/L (21.0-32.0); BLOOD UREA NITROGEN 65 MG/DL (7-18); CHLORIDE 106 MEQ/L (98-107); GLOMERULAR FILTRATION RATE 23 ML/MIN (>89); POTASSIUM 3.6 MEQ/L (3.5-5.1); SODIUM (NA) 136 MEQ/L (136-145)
[2017-05-05 06:44] LABS: ALT (GPT) LESS THAN 6 U/L (12-78)
[2017-05-05 06:46] LABS: ALKALINE PHOSPHATASE 57 U/L (45-117); TOTAL BILIRUBIN ADULT 0.8 MG/DL (0.2-1.0)
[2017-05-05] MEDS: CHLORHEXIDINE 0.12% (ORAL KIT) 15 ML CUP MT SCH ×2 (08:48→20:00)
[2017-05-05] MEDS: POTASSIUM CHLORIDE 20 MEQ PWD PACKET NG SCH ×2 (08:49→21:00)
[2017-05-05] MEDS: BUMETANIDE INJ 1 MG/4 ML VIAL IV PUSH SCH ×2 (08:49→18:14)
[2017-05-05] MEDS: RIFAXIMIN 550 MG TAB PO SCH ×2 (08:49→20:59)
[2017-05-05] MEDS: LACTULOSE SYRUP 20 GM/30 ML CUP PO SCH (08:49)
[2017-05-05] MEDS: PANTOPRAZOLE SODIUM 40 MG VIAL IV PUSH SCH (08:49)
[2017-05-05] MEDS: MAGNESIUM OXIDE 400 MG TAB PO SCH ×2 (08:49→20:58)
[2017-05-05] MEDS: AMIODARONE 200 MG TAB PO SCH (08:50)
[2017-05-05] MEDS: SODIUM CHLOR 0.9% 1000 ML INJ 1,000 ML IV SCH (08:50)
--- NOTE | 2017-05-05 11:03 | HHI.GIFU ---
Subjective Remarks On CPAP, follows commands. No active bleeding. Flexiseal with brown stool and liquid brown stool from around the tube itself. (Megan Orellana) Objective Vitals I&O Vital Signs Date Time Temp Pulse Resp B/P Pulse Ox O2 Delivery O2 Flow Rate FiO2 05/05/17 08:23 100 40 05/05/17 08:00 40 05/05/17 08:00 99.2 118 21 138/63 100 05/05/17 06:00 107 05/05/17 04:29 100 40 05/05/17 04:00 111 05/05/17 04:00 40 05/05/17 04:00 98.8 111 21 142/66 100 05/05/17 02:00 124 05/05/17 01:53 99 40 05/05/17 00:00 40 05/05/17 00:00 99.3 125 20 142/71 100 05/05/17 00:00 125 05/04/17 22:00 121 05/04/17 22:00 40 05/04/17 20:04 99 40 05/04/17 20:00 99.3 122 17 144/78 100 05/04/17 20:00 40 05/04/17 20:00 122 05/04/17 18:00 127 05/04/17 16:46 100 40 05/04/17 16:00 127 05/04/17 16:00 40 05/04/17 16:00 99.8 122 18 165/88 100 05/04/17 14:00 40 05/04/17 14:00 127 05/04/17 12:30 123 21 120/67 99 05/04/17 12:30 40 05/04/17 12:15 126 24 118/68 100 05/04/17 12:00 40 05/04/17 12:00 126 25 120/68 100 05/04/17 12:00 100.5 130 18 145/80 100 05/04/17 12:00 127 05/04/17 11:45 82 25 127/68 100 05/04/17 11:34 100 40 05/04/17 11:30 116 23 129/69 98 05/04/17 11:15 124 21 134/73 99 05/04/17 11:00 120 25 125/77 98 I/O 805/04/17 05/04/17 05/05/17 05/05/17 05/05/17 06:59 14:59 22:59 06:59 14:59 22:59 Intake Total 901 ml 1061 ml 1489 ml 1374 ml Output Total 770 ml 950 ml 1080 ml 640 ml Balance 131 ml 111 ml 409 ml 734 ml IV Total 564 ml 479 ml 455 ml 400 ml Tube Feeding 337 ml 462 ml 474 ml 474 ml Albumin 500 ml 500 ml Other 120 ml 60 ml Output Urine Total 230 ml 300 ml 400 ml 200 ml Stool Total 40 ml 200 ml 50 ml 0 ml Chest Tube Drainage Total 500 ml 450 ml 630 ml 440 ml Laboratory Laboratory Tests Test 05/05/17 04:56 White Blood Count 6.0 Red Blood Count 2.54 Hemoglobin 7.1 Hematocrit 21.7 Mean Corpuscular Volume 85.6 Mean Corpuscular Hemoglobin 28.2 Mean Corpuscular Hemoglobin 32.9 Concent Red Cell Distribution Width 19.8 Platelet Count 117 Mean Platelet Volume 8.7 Neutrophils (%) (Auto) 81.9 Lymphocytes (%) (Auto) 5.9 Monocytes (%) (Auto) 9.4 Eosinophils (%) (Auto) 1.9 Basophils (%) (Auto) 0.9 Neutrophils # (Auto) 4.9 Lymphocytes # (Auto) 0.4 Monocytes # (Auto) 0.6 Eosinophils # (Auto) 0.1 Basophils # (Auto) 0.1 CBC Comment DIFF FINAL Differential Comment Activated Partial 61.8 Thromboplast Time Sodium Level 136 Potassium Level 3.6 Chloride Level 106 Carbon Dioxide Level 21.5 Anion Gap 9 Blood Urea Nitrogen 65 Creatinine 2.80 Estimat Glomerular Filtration 23 Rate Random Glucose 145 Calcium Level 8.0 Total Bilirubin 0.8 Aspartate Amino Transf 21 (AST/SGOT) Alanine Aminotransferase LESS THAN 6 (ALT/SGPT) Alkaline Phosphatase 57 Total Protein 6.7 Albumin 3.3 Date/Time Procedure Status Source Growth 05/03/17 19:22 Aerobic Blood Culture - Preliminary Resulted Blood Peripheral NO GROWTH IN 1 DAY 05/03/17 19:22 Anaerobic Blood Culture - Preliminary Resulted Blood Peripheral NO GROWTH IN 1 DAY 05/03/17 13:55 Gram Stain - Final Complete Sputum Endotracheal 05/03/17 13:55 Sputum Culture - Final Complete Sputum Endotracheal HEAVY GROWTH NORMAL RESPIRATORY PRAVIN 05/03/17 11:40 Stool Occult Blood (BARBARA) - Final Complete Stool Stool HEMOCCULT POSITIVE 05/02/17 17:22 Urine Culture - Final Complete Urine Catheterized Urine NO GROWTH IN 48 HOURS. Imaging Last Impressions Chest X-Ray 05/05/17 0600 Signed Impressions: Service Date/Time: April 04:04 - CONCLUSION: Stable bilateral partially consolidated infiltrates. Kwaku Haro MD Lower Extremity Ultrasound 05/02/17 0000 Signed Impressions: Service Date/Time: Tuesday, May 02, 2017 22:03 - CONCLUSION: The study is negative for deep venous thrombosis bilateral lower extremity. Kwaku Haro MD Brain MRI 04/29/17 0000 Signed Impressions: Service Date/Time: Saturday, April 29, 2017 10:08 - CONCLUSION: 1. No evidence of acute infarct, hemorrhage, mass or edema. 2. No evidence of pontine myelinolysis. 3. 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 Escobar Antony MD Chest Tube Insertion 04/28/17 1555 Signed Impressions: Service Date/Time: April 15:51 - CONCLUSION: Uncomplicated chest tube placement as above. Escobar Antony MD Chest CT 04/28/17 0000 Signed Impressions: Service Date/Time: April 15:51 - CONCLUSION: 1. Bilateral pleural effusions as described. 2. Extensive patchy consolidating infiltrates both lungs. 3. Cardiomegaly. 4. Ascites. Escobar Antony MD Abdomen X-Ray 04/28/17 0000 Signed Impressions: Service Date/Time: April 11:21 - CONCLUSION: Nonspecific bowel gas pattern with some mild gaseous distention of the colon. There is an NG tube in stomach. Srinivasan Ivory MD Upper Extremity Ultrasound 04/23/17 0000 Signed Impressions: Service Date/Time: Sunday, April 23, 2017 10:50 - CONCLUSION: DVT in the right upper extremity seen in the right basilic vein. There is also superficial thrombus in the right cephalic vein. Mushtaq Brown MD Cyst Biopsy Asp-Paracentesis US 04/21/17 0000 Signed Impressions: Service Date/Time: April 11:07 - CONCLUSION: Uncomplicated ultrasound guided paracentesis. Please note that the fluid throughout the abdomen is extremely complex with septations. This can be seen when the fluid has become infected or is complicated by hemorrhage or malignancy. Mushtaq Alexis MD Abdomen/Pelvis CT 04/20/17 0000 Signed Impressions: Service Date/Time: Thursday, April 20, 2017 13:56 - CONCLUSION: 1. Moderate volume free fluid in the abdomen and pelvis with possible associated peritoneal thickening. Thickening of the peritoneal lining can be seen with infection. 2. Large right and moderate size left pleural effusion with associated compressive atelectasis. 3. There is an umbilical hernia containing fluid and fat and fluid containing hernia superior and to the left of the umbilicus. This hernia also contains a portion of the transverse colon. 4. Nonacute findings include changes related to chronic liver disease including recanalized paraumbilical vein and bilateral gynecomastia. 5. Other nonacute findings include cholelithiasis and moderate atherosclerotic disease. Mushtaq Alexis MD Physical Exam HEENT: Normocephalic; atraumatic; no jaundice. Intubated CHEST: OETT to CPAP. Course breath sounds. Bilateral chest tubes with serous drainage. CARDIAC: Irregular on cardizem/amiodarone gtt ABDOMEN: Soft, distended with ascites, large ventral hernia and smaller umbilical hernia, nontender, hypoactive bowel sounds. EXTREMITIES: no edema to lower extremities SKIN: Ecchymosis at bilateral upper and lower extremities RADIOLOGY CLERK: Lethargic, generalized weakness, follows commands. (Megan Orellana) Assessment and Plan Plan ASSESSMENT - Ascites with SBP. S/P Cyst Biopsy Asp-Paracentesis US (04/21/17)----> Uncomplicated ultrasound guided paracentesis. Please note that the fluid throughout the abdomen is extremely complex with septations. This can be seen when the fluid has become infected or is complicated by hemorrhage or malignancy, 650cc removed. Cytology with numerous neutrophils and macrophages, negative for malignant cells. Cx with Staphylococcus aureus. Bedside paracentesis (04/28/17)----> 300cc removed, Cx with staphylococcus aureus. Cefepime Albumin. Bumex per renal. - Liver cirrhosis. Abdomen/Pelvis CT (04/20/17)----> 1. Moderate volume free fluid in the abdomen and pelvis with possible associated peritoneal thickening. Thickening of the peritoneal lining can be seen with infection. 2. Large right and moderate size left pleural effusion with associated compressive atelectasis. 3. There is an umbilical hernia containing fluid and fat and fluid containing hernia superior and to the left of the umbilicus. This hernia also contains a portion of the transverse colon. 4. Nonacute findings include changes related to chronic liver disease including recanalized paraumbilical vein and bilateral gynecomastia. 5. Other nonacute findings include cholelithiasis and moderate atherosclerotic disease. Has Hepatitis C. LFT stable. - Mild colonic ileus. Abdomen X-Ray (04/28/17)----> Nonspecific bowel gas pattern with some mild gaseous distention of the colon. There is an NG tube in stomach. Lactulose. (+) BM. Tolerate TF, seems distention is more from ascites. Having good bowel movements. - Large ventral hernia, smaller umbilical hernia. Stable. - Anemia, normocytic. He does have hx UGIB in 2014 r/t portal hypertensive gastropathy, but no active bleeding at this time. S/P 1 unit PRBC. 7.5/22.0.. - Thrombocytopenia. Hematology following, likely related to abx/sepsis. Improving, platelets 117 - Hx of hep-C- quant 22,500 - Right DVT on US, on heparin - Resp. failure, pleural effusin, PNA, on CPAP, bilateral chest tubes - Atrial fibrillation with RVR. On amiodarone, cardizem gtt. Rate 110 Cardiology following. - Acute renal failure. Nephrology following. Bumex. PLAN - TF as tolerated - Cont. Lactulose - Cont. Xifaxan - Cont. Albumin - Diuretics per renal, on Bumex - Monitor HH, Plt - Transfuse as necessary - Supportive care - Further recommendations to follow based on results of above. - Patient seen and examined by Dr. Mix and myself and this note is written on his behalf. (Megan Orellana) Physician Comments Patient seen and examined Agree with above Continue with current supportive care Monitor labs (Dain Mix MD) Megan Orellana May 05, 2017 11:03 aDin Mix MD May 05, 2017 17:03
--- NOTE | 2017-05-05 12:42 | HHI.CCPN ---
Subjective Remarks/Hospital Course History of Present Illness Mr. Forrest is a 56 year old male patient with cirrhosis secondary to hepatitis C and alcohol dependence, atrial fibrillation, hypertension, GERD, sleep apnea, history of central pontine myelinolysis,ascites requiring paracentesis who admitted to [facility] with on 04/20/2017 for evaluation of decreased oral intake, probable sepsis and ascites. An EKG on admission showed atrial fibrillation with RVR. His initial WBC count was 15K. Infectious disease was consulted and patient was placed on broad-spectrum antibiotic. Recently underwent paracentesis by IR on 04/21/17 with the fluid was described as loculated and septated. Fluid culture grew MSSA. 3 out of 4 blood cultures on 04/20/17 growing MSSA. For Atrial fibrillation with RVR patient was placed on Cardizem drip. Paracentesis on 04/21/2017 650 ccfluid removed. Peritoneal WBC - 45009; peritoneal RBC - 411. Patient had been receiving Ancef and vancomycin per ID recommendation Critical care medicine was consulted today a.m. as patient was increasingly short of breath and dyspneic and hypoxemic. Patient was placed on BiPAP 15/7 at 80% oxygen. I immediately evaluated the patient he appeared to be in moderate to severe distress. Bedside ultrasound showed large right-sided pleural effusion. I gave him 25 g of albumin and performed thoracentesis with 2 L of fluid removal. Chest x-ray postprocedure showed significant clearing of the right lung field but increased edema involving the left lung field. It is possible that patient has developed reexpansion pulmonary edema, I gave him 2 mg of IV bumex. Repeat Chest x-ray continues to show bilateral pulmonary edema , I have signed out this case to Dr. Bob who will most likely intubated the patient. Subjective subjective: 04/26: The patient required intubation, due to hypoxemic respiratory failure last a.m.. Patient still requires has high oxygen and ventilatory requirements,PEEP increased to 10. Aggressive diuresis continues. The patient converted to normal sinus rhythm yesterday afternoon amiodarone has been discontinued Cardizem has been discontinued. The patient continues on metoprolol twice a day. 04/27: Decreased urinary output overnight. Bumex 1 mg/hour instituted. Plan for repeat paracentesis procedure. The patient remains normal sinus rhythm. 04/28: Afebrile. Paracentesis today only 300 cc. Possibly slightly loculated. Weaning back loop diuretic in light of worsening renal function. Plan for right-sided pigtail catheter for recurrent pleural effusion. In attempt to wean off ventilator. Tolerating tube feeding at 10 cc an hour 04/29: Patient had a IR placed 10 Georgian chest tube on the right side with 1.7 L drained. Urine output 3.3 L in 24 hours. Remains severely encephalopathic. Bedside US shows moderate L effusion 81/2: Remains intubated. Developed Afib with RVR, rate 150-160. Cardizem gtt after 20 mg IVP with no improvement. Metoprolol 5 mg IVPx1. Start Amiodarone if not improved (already on full anticoagulation. Chest x-ray today shows bilateral pigtail chest tubes in place and tiny right apical pneumothorax (R pigtail was placed by radiology). Patient remains encephalopathy despite being off sedation 05/01: Remains in normal sinus rhythm, rate controlled, on IV Cardizem and IV amiodarone. Patient remains encephalopathy, but more spontaneous eye opening. Lovenox change to IV heparin due to worsening renal failure. Also IV Bumex held due to increasing creatinine 05/02: Remains intubated, off sedation. More awake. Weakly following x4. UO 800 ml in 24 hours. Give 2 mg IV Bumex. Change Amio to PO 05/03: Continues to spike high fever 102.5. CXR despite bilateral chest tube and 1.6L output in 24 hours shows R> L consolidation/effusion. Creat worsening. Will hold Diuretics. Send sputum and blood cultures, give single dose of vanc and cefepime. D/W Dr. Gonzalez. Hb 6.9, will give 1U PRBC. Platelet count steadily improving 94 today 05/04: Continues to spike fever 101.5. Not tolerating CPAP. Back to Afib with RVR. Chest tube output 1.3L combined. Creat 2.5, UO 580 ml in 24 hours. Consult nephrology. Doubt successful vent weaning without trach. Will also consult nephrology Subjective 05/05: Remains on Cardizem and amiodarone infusions for atrial fibrillation, remains also on IV heparin. Hemoglobin has dropped to 7.1 I will give 1 unit PRBC transfusion. Chest x-ray unchanged. Bilateral chest tubes with 1.5 mg in 24 hours. Creatinine worsening to 2.8 urine output is 900 mL in 24 hours. Nephrology consulted and they have started Bumex 2 mg IV every 12 Objective Vital Signs Date Time Temp Pulse Resp B/P Pulse Ox O2 Delivery O2 Flow Rate FiO2 05/05/17 10:00 106 05/05/17 08:23 100 40 05/05/17 08:00 99.2 21 138/63 Intake and Output 05/04/17 05/04/17 05/04/17 07:59 15:59 23:59 Intake Total 901 ml 1061 ml 1489 ml Output Total 770 ml 950 ml 1080 ml Balance 131 ml 111 ml 409 ml Result Diagram: 05/05/17 0456 05/05/17 0456 Other Results Microbiology Date/Time Procedure Status Source Growth 05/02/17 17:22 Urine Culture - Final Complete Urine Catheterized Urine NO GROWTH IN 48 HOURS. 05/03/17 11:40 Stool Occult Blood (BARBARA) - Final Complete Stool Stool HEMOCCULT POSITIVE 05/03/17 13:55 Gram Stain - Final Complete Sputum Endotracheal 05/03/17 13:55 Sputum Culture - Final Complete Sputum Endotracheal HEAVY GROWTH NORMAL RESPIRATORY PRAVIN Imaging Last Impressions Chest X-Ray 04/27/17 0600 Signed Impressions: Service Date/Time: Thursday, April 27, 2017 04:29 - CONCLUSION: Overall stable appearance of the chest. Watson Bermeo MD Upper Extremity Ultrasound 04/23/17 0000 Signed Impressions: Service Date/Time: Sunday, April 23, 2017 10:50 - CONCLUSION: DVT in the right upper extremity seen in the right basilic vein. There is also superficial thrombus in the right cephalic vein. Mushtaq Brown MD Cyst Biopsy Asp-Paracentesis US 04/21/17 0000 Signed Impressions: Service Date/Time: April 11:07 - CONCLUSION: Uncomplicated ultrasound guided paracentesis. Please note that the fluid throughout the abdomen is extremely complex with septations. This can be seen when the fluid has become infected or is complicated by hemorrhage or malignancy. Mushtaq Alexis MD Abdomen/Pelvis CT 04/20/17 0000 Signed Impressions: Service Date/Time: Thursday, April 20, 2017 13:56 - CONCLUSION: 1. Moderate volume free fluid in the abdomen and pelvis with possible associated peritoneal thickening. Thickening of the peritoneal lining can be seen with infection. 2. Large right and moderate size left pleural effusion with associated compressive atelectasis. 3. There is an umbilical hernia containing fluid and fat and fluid containing hernia superior and to the left of the umbilicus. This hernia also contains a portion of the transverse colon. 4. Nonacute findings include changes related to chronic liver disease including recanalized paraumbilical vein and bilateral gynecomastia. 5. Other nonacute findings include cholelithiasis and moderate atherosclerotic disease. Mushtaq Alexis MD Objective Remarks GENERAL: 57-year-old critically ill male, currently intubated not on sedation for >7 days SKIN: Warm/dry. No rash/well perfused. Ecchymosis bilateral upper and lower extremities HEAD: Atraumatic. Normocephalic. EYES: Pupils equal and round about 4 mm bilaterally and reactive. No scleral icterus. ENT: No nasal bleeding or discharge. Orotracheally intubated NECK: Trachea midline. No JVD. CARDIOVASCULAR: Atrial fibrillation with rapid ventricular response. S1, S2. No S4. No rub. Systolic murmur LSB 2/ RESPIRATORY: Air entry diminished bilateral lower lung tate. Few basilar crackles. Bilateral chest tubes in place with no air leak. 1520 ML total output in 24 hours. Tachypneic on CPAP GASTROINTESTINAL: Abdomen soft, distended from ascites, large ventral hernia. Hypoactive bowel sounds. : Positive scrotal edema. Palmer catheter in place MUSCULOSKELETAL: 1+ edema bilateral upper and lower extremity/anasarca NEUROLOGICAL: Intubated and not on sedation. Spontaneous eye opening today. Follows commands x4 but very weak Procedures Paracentesis Thoracentesis Right pigtail chest tube placement Date of Insertion: Apr 25, 2017 A/P Assessment and Plan Neuro/Psych Acute metabolic encephalopathy Hx of ETOH abuse History of central pontine myelinolysis with quadriparesis --Monitor mental status closely, metabolic encephalopathy secondary to sepsis --Spontaneous eye opening, following x4 weakly --Currently off all sedation DCd propofol 04/29, Goal of RASS 0 --MRI brain 04/29 shows resolution of previous osmotic demyelination syndrome CVS Pulmonary edema ? Reexpansion pulmonary edema versus ARDS Atrial fibrillation with RVR -- IV heparin -- On Cardizem infusion and Amiodarone infusion for Afib rate control - Hold Amio 200 mg daily 8/14. Give Digoxin 0.5 mg x1 -- Continue metoprolol, 50mg po q8 -- 2d Echo no evidence of endocarditis, normal ejection fraction 60%. Trace MR. Moderate TR. -- IV albumin 25 g every 8 hours Pulmonary Acute hypoxemic respiratory failure Bilateral pigtail chest tubes for large pleural effusions Probable HCAP - Status post right thoracentesis and 2 L fluid removed with IV albumin infusing 04/25 - Patient developed reexpansion pulmonary edema after thoracentesis - Intubated 04/25 ACV ventilation 18/500/10/40. vent day 10 - s/p R pigtail CT 04/28 with IR, tiny R apical pneumothorax-now resolved - s/p left chest tube placement 04/29 . Total output 1.5L over 24 hours - Ventilator bundle. - DuoNeb every 6 hours with albuterol aerosols every 2 when necessary - Previous tracheostomy status post decannulation 2015 - No Spontaneous breathing trials today again, may need trach again due to anticipated prolonged vent support - Once family has decided about tracheostomy, consult general surgery due to previous trach - Sputum and blood cx follow up GI Spontaneous bacterial peritonitis with MSSA Cirrhotic liver disease secondary to ETOH abuse and Hepatitis C genotype IIIa Protein calorie malnutrition/moderate Ascitesmoderate -- Prior U/S guided paracentesis 04/21/17, fluid was loculated and septated -- Exudative fluid growing MSSA indicated with peritonitis -- Antibiotics per ID -- Status post paracentesis 04/28 300 cc removed. Culture sent. Continues to drain from site -- Currently on Jevity 1.5 goal 60 cc an hour. Pantoprazole for GI prophylaxis -- Outpatient workup/treatment for hepatitis C genotype IIIa - [id number] iu per milliliter -- Need PEG for termite helper feeding, family will make decisions nest week Renal Acute kidney injury -- Palmer catheter in place to monitor I/Os in critically ill patient -- May need hemodialysis for volume removal if renal function deteriorates. -- Nephrology Dr. Garcia.Bumex 2 mg IV q12 restarted by nephro -- Creat 2.8 today 05/05. Endocrine/FEN: Hypokalemia Hypophosphatemia Hypo-magnesium -- Electrolyte replacement protocol Heme Anemia Coagulopathy Thrombocytopenia Right upper extremity superficial thrombosis basilic/cephalic veins -- Anemia, and coagulopathy most likely secondary to chronic liver disease / ETOH use, severe sepsis and consumptive from thrombophlebitis -- Transfuse 1U PRBC today. stool for Hemoccult +ve. Platelet count improving -- Heparin gtt ID: MSSA bacteremia Spontaneous bacterial peritonitis -- Pertinent cultures: - Blood 04/20: 11/20 bottles MSSA - Ascitic fluid 04/21: MSSA - Cultures from 05/02 neg to date Antibiotics per ID. continue renally dosed vancomycin cefepime and Diflucan Prophylaxis: GI -pantoprazole DVT - SCDs; and heparin gtt Discussed with bedside CC RN CCT 35 MIN Patient remains critically ill with severe encephalopathy respiratory failure and volume overload along with severe sepsis. Now with bilateral chest tubes and diuresis obtaining negative balance but remains fluid overloaded. May need hemodialysis for fluid removal Seven Landin MD May 05, 2017 12:42
[2017-05-05] MEDS ORDERED: DIGOXIN 0.5 MG/2 ML VIAL IV PUSH ONE (13:00)
--- NOTE | 2017-05-05 14:30 | PD.ONC.PN ---
Subjective Subjective Remarks Tmax 99.3 overnight Pt resting in bed on CPAP, intubated. No bleeding per RN Objective Data Date Time Temp Pulse Resp B/P Pulse Ox O2 Delivery O2 Flow Rate FiO2 05/05/17 13:55 99.1 96 26 146/75 100 05/05/17 13:31 99.0 116 25 130/64 99 05/05/17 12:00 114 05/05/17 12:00 98.4 114 22 105/79 100 05/05/17 12:00 40 05/05/17 10:00 106 05/05/17 08:23 100 40 05/05/17 08:00 40 05/05/17 08:00 99.2 118 21 138/63 100 05/05/17 08:00 118 05/05/17 06:00 107 05/05/17 04:29 100 40 05/05/17 04:00 111 05/05/17 04:00 40 05/05/17 04:00 98.8 111 21 142/66 100 05/05/17 02:00 124 05/05/17 01:53 99 40 05/05/17 00:00 40 05/05/17 00:00 99.3 125 20 142/71 100 05/05/17 00:00 125 05/04/17 22:00 121 05/04/17 22:00 40 05/04/17 20:04 99 40 05/04/17 20:00 99.3 122 17 144/78 100 05/04/17 20:00 40 05/04/17 20:00 122 05/04/17 18:00 127 05/04/17 16:46 100 40 05/04/17 16:00 127 05/04/17 16:00 40 05/04/17 16:00 99.8 122 18 165/88 100 05/05/17 05/05/17 05/05/17 06:59 14:59 22:59 Intake Total 1374 ml Output Total 640 ml Balance 734 ml Result Diagram: 05/05/17 0456 05/05/17 0456 Laboratory Results Laboratory Tests Test 05/05/17 05/05/17 04:56 12:40 White Blood Count 6.0 TH/MM3 Red Blood Count 2.54 MIL/MM3 Hemoglobin 7.1 GM/DL Hematocrit 21.7 % Mean Corpuscular Volume 85.6 FL Mean Corpuscular Hemoglobin 28.2 PG Mean Corpuscular Hemoglobin 32.9 % Concent Red Cell Distribution Width 19.8 % Platelet Count 117 TH/MM3 Mean Platelet Volume 8.7 FL Neutrophils (%) (Auto) 81.9 % Lymphocytes (%) (Auto) 5.9 % Monocytes (%) (Auto) 9.4 % Eosinophils (%) (Auto) 1.9 % Basophils (%) (Auto) 0.9 % Neutrophils # (Auto) 4.9 TH/MM3 Lymphocytes # (Auto) 0.4 TH/MM3 Monocytes # (Auto) 0.6 TH/MM3 Eosinophils # (Auto) 0.1 TH/MM3 Basophils # (Auto) 0.1 TH/MM3 CBC Comment DIFF FINAL Differential Comment Activated Partial 61.8 SEC Thromboplast Time Sodium Level 136 MEQ/L Potassium Level 3.6 MEQ/L Chloride Level 106 MEQ/L Carbon Dioxide Level 21.5 MEQ/L Anion Gap 9 MEQ/L Blood Urea Nitrogen 65 MG/DL Creatinine 2.80 MG/DL Estimat Glomerular Filtration 23 ML/MIN Rate Random Glucose 145 MG/DL Calcium Level 8.0 MG/DL Total Bilirubin 0.8 MG/DL Aspartate Amino Transf 21 U/L (AST/SGOT) Alanine Aminotransferase LESS THAN 6 U/L (ALT/SGPT) Alkaline Phosphatase 57 U/L Total Protein 6.7 GM/DL Albumin 3.3 GM/DL Blood Type O POSITIVE Crossmatch Leukocyte-Reduced Red Blood Cells Blood Bank Comment Culture Results Microbiology Date/Time Procedure Status Source Growth 05/02/17 17:22 Urine Culture - Final Complete Urine Catheterized Urine NO GROWTH IN 48 HOURS. 05/03/17 11:40 Stool Occult Blood (BARBARA) - Final Complete Stool Stool HEMOCCULT POSITIVE 05/03/17 13:55 Gram Stain - Final Complete Sputum Endotracheal 05/03/17 13:55 Sputum Culture - Final Complete Sputum Endotracheal HEAVY GROWTH NORMAL RESPIRATORY PRAVIN 05/03/17 19:15 Aerobic Blood Culture - Preliminary Resulted Blood Peripheral NO GROWTH IN 2 DAYS 05/03/17 19:15 Anaerobic Blood Culture - Preliminary Resulted Blood Peripheral NO GROWTH IN 2 DAYS 05/03/17 19:22 Aerobic Blood Culture - Preliminary Resulted Blood Peripheral NO GROWTH IN 2 DAYS 05/03/17 19:22 Anaerobic Blood Culture - Preliminary Resulted Blood Peripheral NO GROWTH IN 2 DAYS Imaging Studies Last 24 hours Impressions Chest X-Ray 05/05/17 0600 Signed Impressions: Service Date/Time: April 04:04 - CONCLUSION: Stable bilateral partially consolidated infiltrates. Kwaku Haro MD Administered Medications Medications (Trade) Dose Ordered Sig/Rhea Route PRN Reason Start Time Stop Time Status Last Admin Dose Admin Sodium Chloride (NS 1000 ml Inj) 1,000 ml @ 0 mls/hr Q24H IV 04/21/17 13:45 04/25/17 14:03 Miscellaneous Information Patient in critical care unit? Ass... Q361D .XX 04/22/17 02:45 04/22/17 02:45 Rifaximin (Xifaxan) 550 mg BID PO 04/23/17 21:00 05/05/17 08:49 Lactulose (Lactulose Liq) 30 ml DAILY PO 04/24/17 09:00 05/05/17 08:49 Chlorhexidine Gluconate (Peridex 0.12% Liq) 15 ml BID@08,20 MT 04/25/17 20:00 05/05/17 08:48 Magnesium Oxide (Mag-Ox) 400 mg Q12HR PO 04/28/17 21:00 05/05/17 08:49 Potassium Chloride (KCl Powder) 20 meq Q12HR NG 04/28/17 21:00 05/05/17 08:49 Pantoprazole Sodium (Protonix Inj) 40 mg DAILY IV PUSH 04/28/17 11:30 05/05/17 08:49 Artificial Tears (Lacrilube Opht Oint) 1 applic Q12HR EACH EYE 04/28/17 21:00 05/05/17 08:48 Albumin Human 25 gm 25 gm Q8H IV 04/29/17 10:00 05/05/17 08:52 Heparin Sodium/ Dextrose (Heparin-D5W Inj) 250 ml @ 0 mls/hr TITRATE IV 05/01/17 06:30 05/05/17 04:41 Metoprolol Tartrate (Lopressor) 50 mg Q8H PO 05/01/17 17:00 05/05/17 08:50 Amiodarone HCl 200 mg 200 mg DAILY PO 05/02/17 10:15 Hold 05/05/17 08:50 Cefepime HCl 2000 mg/Sodium Chloride 100 ml @ 200 mls/hr Q12H IV 05/03/17 13:00 05/05/17 12:25 Amiodarone HCl 450 mg/Dextrose 250 ml @ 0 mls/hr CONTINUOUS IV 05/03/17 18:15 05/05/17 06:29 Diltiazem HCl/ Sodium Chloride (Cardizem Inj/NS Inj) 125 ml @ 0 mls/hr TITRATE IV 05/03/17 23:45 05/05/17 06:29 Bumetanide (Bumex Inj) 2 mg BID@09,18 IV PUSH 05/04/17 18:00 05/05/17 08:49 Objective Remarks GENERAL: Intubated patient, supine in bed on CPAP trials. SKIN: Warm and dry. HEAD: Normocephalic. EYES: No injection or drainage. NECK: Supple, trachea midline. LYMPHATIC: No adenopathy. CARDIOVASCULAR: +S1/S2; tachycardia. Fetting amiodarone. RESPIRATORY: coarse rhonchi. on CPAP; pigtail catheter along left posterior thorax, draining clear yellow fluid. GASTROINTESTINAL: Abdomen distended, large mass along epigastric region EXTREMITIES: No cyanosis NEUROLOGICAL: Patient making eye contact; attempts to talk over ET tube. Assessment/Plan Problem List: (1) Thrombocytopenia Status: Acute Plan: 05/05: Counts continuing to recover. Monitor CBC. --multifactorial most likely due to staph aureus sepsis and/or antibiotic and cephazolin. --HIT negative --h/o Hepatitis C --++Cirrhosis of the liver with ascites. --Once the infection clears up, expect his platelet count to improve. --cephazolin can also cause severe thrombocytopenia. (2) Sepsis Status: Acute Plan: --on abx per primary team --Methicillin-sensitive staph aureus sepsis as well as subacute bacterial peritonitis. Assessment 57y/o male admitted with sepsis, possible spontaneous bacterial peritonitis. hematology consulted for evaluation of thrombocytopenia. history of arthritis, atrial fibrillation, hypertension, gastroesophageal reflux disease and central pontine myelinolysis. He also has a history of alcoholism, hepatitis C, and liver cirrhosis. The patient has had previously multiple paracentesis for his end-stage liver disease. h/o Tracheostomy. G-tube placement last year. Attending Statement Patient is on the ventilator on CPAP trial Platelets are coming up Ancef has been stoped. He is now on cefepime No HIT The exam, history, and the medical decision-making described in the above note were completed with the assistance of the mid-level provider. I reviewed and agree with the findings presented. I attest that I had a [id number] encounter with the patient on the same day, and personally performed and documented my assessment and findings in the medical record. Problem Qualifiers (1) Sepsis: Qualified Code: A41.9 - Sepsis, due to unspecified organism Marixa Faust May 05, 2017 14:30 Carli Hope MD May 06, 2017 07:08
--- NOTE | 2017-05-05 15:07 | HHI.NPPN ---
Subjective General Problems: Anemia Renal Failure: Acute Interval History Remains intubated but awake. Creatinine slightly worse but he has responded to diuretics. He has DVT in right arm. Being transfused with PRBC. (Carolina Brandon) Review of Systems General General Remarks unable to evaluate (Carolina Brandon) Objective Data Data 05/04/17 05/05/17 18:59 06:59 Intake Total 1061 ml 2863 ml Output Total 950 ml 1720 ml Balance 111 ml 1143 ml IV Total 479 ml 855 ml Tube Feeding 462 ml 948 ml Albumin 1000 ml Other 120 ml 60 ml Output Urine Total 300 ml 600 ml Stool Total 200 ml 50 ml Chest Tube Drainage Total 450 ml 1070 ml Vital Signs Date Time Temp Pulse Resp B/P Pulse Ox O2 Delivery O2 Flow Rate FiO2 05/05/17 14:38 100 45 05/05/17 13:55 99.1 96 26 146/75 100 05/05/17 13:31 99.0 116 25 130/64 99 05/05/17 12:00 114 05/05/17 12:00 98.4 114 22 105/79 100 05/05/17 12:00 40 05/05/17 10:00 106 05/05/17 08:23 100 40 05/05/17 08:00 40 05/05/17 08:00 99.2 118 21 138/63 100 05/05/17 08:00 118 05/05/17 06:00 107 05/05/17 04:29 100 40 05/05/17 04:00 111 05/05/17 04:00 40 05/05/17 04:00 98.8 111 21 142/66 100 05/05/17 02:00 124 05/05/17 01:53 99 40 05/05/17 00:00 40 05/05/17 00:00 99.3 125 20 142/71 100 05/05/17 00:00 125 05/04/17 22:00 121 05/04/17 22:00 40 05/04/17 20:04 99 40 05/04/17 20:00 99.3 122 17 144/78 100 05/04/17 20:00 40 05/04/17 20:00 122 05/04/17 18:00 127 05/04/17 16:46 100 40 05/04/17 16:00 127 05/04/17 16:00 40 05/04/17 16:00 99.8 122 18 165/88 100 (Carolina Brandon) -: 05/05/17 0456 05/05/17 0456 Imaging Last 72 hours Impressions Chest X-Ray 05/05/17 0600 Signed Impressions: Service Date/Time: April 04:04 - CONCLUSION: Stable bilateral partially consolidated infiltrates. Kwaku Haro MD Chest X-Ray 05/04/17599 Signed Impressions: Service Date/Time: Thursday, May 04, 2017 04:40 - CONCLUSION: Stable bilateral infiltrates, right greater than left. Kwaku Haro MD Chest X-Ray 05/03/17599 Signed Impressions: Service Date/Time: Wednesday, May 03, 2017 03:35 - CONCLUSION: Bilateral infiltrates, right greater than left, stable. Kwaku Haro MD Tubes & Lines: Palmer Tubes & Lines Comment TLC, rectal tube, chest tube bilaterally Drip Comment heparin, amiodarone, Cardizem (Carolina Bradnon) Physical Exam General Appearance: No Acute Distress, Malnourished (Carolina Brandon) Throat Throat Exam: Oral Mucosa Douglass & Moist (Carolina Brandon) Pulmonary Resp Exam: Breath Sounds Equal, Crackles, Rhonchi, Sputum (Carolina Brandon) Cardiology CV Exam: Good Perfusion, Irregular, Tachycardia (Carolina Brandon) Gastrointestinal/Abdomen GI Exam: Non-Tender, Bowel Sounds Present, Distended GI Remarks large ventral hernia is present (Carolina Brandon) Musculoskeletal MS Exam: Joints Intact, Normal Tone, Unable to Ambulate (Carolina Brandon) Integumentary Skin Exam: Warm, Dry Skin Remarks sacral ulcer, right arm with bruising (Carolina Brandon) Extremeties Extremities Exam: Pedal Pulses Palpable, Moderate Edema Extremeties Remarks upper extremity edema persists, lower extremity edema improved (Carolina Brandon) Neurologic Neuro Exam: Awake, Moving All Extremities, Sedated (Carolina Brandon) VTE Prophylaxis Meds: Heparin (Carolina Brandon) Assessment/Plan Assessment Summary: HILARY/Acute Renal Failure, Fluid/Volume Overload, Hypertension Problem List: (1) Acute renal failure Plan: In a patient with normal renal function on arrival HILARY may be due to hypoperfusion injury with possible ATN he is demonstrating fluid overload, being diuresed BUmex 2 mg BID urine output increased overnight, now tapering off give another dose of Bumex now repeat renal panel tomorrow depending on above may require dialysis support monitor renal function, avoid IVF and nephrotoxic medications follow vancomycin levels (2) Bacterial peritonitis Plan: ID has evaluated MSSA, on cefepime and vancomycin monitor clinically he is on tube feeding through OG tube (3) Atrial fibrillation with RVR Plan: with RVR he is on amiodarone and Cardizem gtts, on heparin for anticoagulation blood pressure is acceptable monitor (4) HTN (hypertension) Plan: continue medications as ordered follow blood pressure (5) Anemia Plan: with coagulopathy, possibly related to liver disease he is Hemoccult positive transfusion in process (Carolina Brandon) Plan patient was seen and examined. Agree with above assessment and plan. Poor prognosis. Dialysis will not change his outcome. (Feng Garcia MD) Carolina Brandon May 05, 2017 15:07 Feng Garcia MD May 06, 2017 20:20
[2017-05-05] MEDS ORDERED: BUMETANIDE INJ 1 MG/4 ML VIAL IV PUSH ONE (15:15)
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
[2017-05-05 19:49] LABS: HEMATOCRIT 26.8 % (39.0-51.0); REVIEW FLAG FINAL
[2017-05-06] VITALS (18 sets, daily range): BP systolic 124–177; BP diastolic 57–84; PULSE 54–126; RESP 17–32; TEMP 97.7–98.7; O2SAT 95–100
[2017-05-06] MEDS: CEFEPIME INJ 2,000 MG in SODIUM CHLORIDE 0.9% INJ 100 ML IV SCH ×2 (00:23→12:08)
[2017-05-06] MEDS: ALBUMIN HUMAN 5% 25 GM/500 ML BOTTLE IV SCH ×3 (01:18→19:06)
[2017-05-06] MEDS: HEPARIN-D5W 25,000 U/250 ML 250 ML IV SCH ×2 (01:22→21:53)
[2017-05-06] MEDS ORDERED: PROPOFOL 1000 MG/100 ML INJ 100 ML IV SCH (02:30)
[2017-05-06] MEDS ORDERED: ETOMIDATE 20 MG/10 ML VIAL IV PUSH ONE (02:30)
[2017-05-06] MEDS ORDERED: ROCURONIUM INJ 50 MG/5 ML VIAL IV ONE (02:30)
--- NOTE | 2017-05-06 02:44 | PD.PROCEDR ---
Procedure Note Procedure PROCEDURE NOTE PROCEDURE: Endotracheal intubation INDICATION: Respiratory failure. Patient was extubated yesterday afternoon. He is not protecting his airway or handling respiratory secretions adequately despite efforts at NT. suctioning DETAILS OF PROCEDURE: The patient was placed in optimal position and preoxygenated with 100% FiO2 via [id number]. Oximeter oxygen saturation of 94% was obtained prior to direct laryngoscopy. The patient was administered Etomidate 20 mg IV for sedation and rocuronium 50 mg IV. Laryngoscopy was performed with a 4 Glidescope and a grade I Cormack-Lehane view was obtained. There were copious respiratory secretions suctioned from supraglottic region and posterior oropharynx. On single attempt a size 8.0 endotracheal tube was visualized passing through the cords. Correct placement was confirmed with colorimetric CO2 detector. Breath sounds were equal bilaterally. No sounds auscultated over the stomach. The endotracheal tube was secured with a commercial tube aldana at a depth of 24 cm at the lips. The patient was connected to the ventilator. The patient tolerated the procedure well without any apparent complication. Oxygen saturations were maintained greater than 93% at all times. Stat chest x-ray was ordered. Domitila Larios MD May 06, 2017 02:44
[2017-05-06] MEDS: POTASSIUM CHLORIDE 20 MEQ PWD PACKET NG SCH ×2 (03:33→20:34)
[2017-05-06] MEDS: METOPROLOL TARTRATE 50 MG TAB PO SCH ×3 (03:33→15:38)
[2017-05-06 03:44] LABS: BLOOD GAS BASE EXCESS -7.7 mmol/L (-2-2); BLOOD GAS CARBOXYHEMOGLOBIN 1.6 % (0-4); BLOOD GAS HCO3 19 mmol/L (22-26); BLOOD GAS METHEMOGLOBIN 1.1 % (0-2); BLOOD GAS O2 HGB SATURATION 91 % (90-100); BLOOD GAS OXYGEN CONTENT 11.7 Vol % (12.0-20.0); BLOOD GAS PCO2 52 mmHg (38-42); BLOOD GAS PO2 88 mmHg (61-120); CRITICAL VALUE YES; OXYGEN DEVICE VENTILATOR; TEMP CORR TO 98.6
[2017-05-06 03:45] LABS: DRAW SITE RT RADIAL; NUMBER OF ARTERIAL PUNCTURES 1; STAT NO; ULNAR PULSE PRESENT; VENT SETTINGS PRVC
--- NOTE | 2017-05-06 04:35 | RADRPT ---
EXAM DATE/TIME: 05/06/2017 02:51 [place] COMPARISON: CHEST SINGLE AP, May 05, 2017, 4:04. INDICATIONS : Post intubation MEDICAL HISTORY : Pancreatitis. Arthritis. Cirrhosis. Hypertension Sleep apnea SURGICAL HISTORY : None. ENCOUNTER: Subsequent ACUITY: 2 weeks PAIN SCORE: Non-responsive. LOCATION: Bilateral chest FINDINGS: A single view of the chest demonstrates bilateral airspace disease which actually appears to have wor sened from the prior exam. Developing left-sided effusion with persistent right-sided effusion. [place] loop pigtail catheters project over the lower hemithoraces bilaterally . Heart size is upper limits o f normal. Endotracheal tube appropriately positioned above the adelita with interval removal of the na sogastric tube. CONCLUSION: 1. Right-sided [place] loop thoracostomy tubes are stable in position. Worsening left-sided effusion and persistent right-sided effusion. 2. Bilateral airspace disease, right greater than left. These appear worse when compared to the prior exam. 3. Interval removal of the nasogastric tube. Endotracheal tube remains appropriately positioned above the adelita. Antonio Lopez MD on May 06, 2017 at 4:30 Board Certified Radiologist. This report was verified electronically.
[2017-05-06 07:43] LABS: BLOOD GAS BASE EXCESS -6.6 mmol/L (-2-2); BLOOD GAS CARBOXYHEMOGLOBIN 1.9 % (0-4); BLOOD GAS HCO3 17 mmol/L (22-26); BLOOD GAS O2 HGB SATURATION 97 % (90-100); BLOOD GAS OXYGEN CONTENT 11.8 Vol % (12.0-20.0); BLOOD GAS PCO2 28 mmHg (38-42); BLOOD GAS PO2 181 mmHg (61-120); BLOOD GAS TOTAL HGB 8.3 G/DL (12.0-16.0); TEMP CORR TO 98.6
[2017-05-06 07:44] LABS: CRITICAL VALUE NO; DRAW SITE RT RADIAL; FIO2 60 %; NUMBER OF ARTERIAL PUNCTURES 1; OXYGEN DEVICE VENTILATOR; VENT SETTINGS PRVC
[2017-05-06 07:45] LABS: STAT NO; ULNAR PULSE PRESENT
[2017-05-06] MEDS: PANTOPRAZOLE SODIUM 40 MG VIAL IV PUSH SCH (08:10)
[2017-05-06] MEDS: MAGNESIUM OXIDE 400 MG TAB PO SCH ×2 (08:11→20:35)
[2017-05-06] MEDS: BUMETANIDE INJ 1 MG/4 ML VIAL IV PUSH SCH (08:11)
[2017-05-06] MEDS: LACTULOSE SYRUP 20 GM/30 ML CUP PO SCH (08:11)
[2017-05-06] MEDS: RIFAXIMIN 550 MG TAB PO SCH ×2 (08:11→20:33)
[2017-05-06] MEDS: ARTIFICIAL TEARS OPTH OINT 3.5 APPLIC/3.5 GM TUBO EACH EYE SCH ×2 (08:13→20:38)
[2017-05-06] MEDS: CHLORHEXIDINE 0.12% (ORAL KIT) 15 ML CUP MT SCH ×2 (08:14→20:37)
--- NOTE | 2017-05-06 09:44 | PD.ONC.PN ---
Subjective Subjective Remarks Afebrile overnight. Intubated again overnight. Objective Data Date Time Temp Pulse Resp B/P Pulse Ox O2 Delivery O2 Flow Rate FiO2 05/06/17 06:00 59 05/06/17 04:00 97.7 80 25 147/83 100 05/06/17 04:00 60 05/06/17 04:00 80 05/06/17 03:30 100 60 05/06/17 02:40 60 05/06/17 02:40 98 60 05/06/17 02:00 120 05/06/17 00:00 126 05/06/17 00:00 98.3 126 32 177/84 95 05/05/17 22:00 119 05/05/17 20:22 94 Non-Rebreather 15.00 05/05/17 20:00 116 05/05/17 20:00 98.1 116 27 154/81 97 05/05/17 19:00 97 Non-Rebreather 15.00 05/05/17 18:35 94 Non-Rebreather 15.00 05/05/17 18:00 121 05/05/17 17:05 96 Venturi Mask 6.00 50 05/05/17 17:05 96 Venturi Mask 6 50 05/05/17 17:00 92 Venturi Mask 6.00 50 05/05/17 16:24 99 40 05/05/17 16:15 98.9 96 23 134/75 100 05/05/17 16:00 40 05/05/17 16:00 101 05/05/17 16:00 98.6 101 23 134/75 100 05/05/17 14:38 100 45 05/05/17 14:00 105 05/05/17 13:55 99.1 96 26 146/75 100 05/05/17 13:31 99.0 116 25 130/64 99 05/05/17 12:00 114 05/05/17 12:00 98.4 114 22 105/79 100 05/05/17 12:00 40 05/05/17 10:00 106 05/06/17 05/06/17 05/06/17 07:00 15:00 23:00 Intake Total 999 ml Output Total 1300 ml Balance -301 ml Result Diagram: 05/05/17 1917 05/05/17 0456 Laboratory Results Laboratory Tests Test 05/05/17 05/05/17 05/06/17 05/06/17 12:40 19: 03:15 06:53 Blood Type O POSITIVE Crossmatch Leukocyte-Reduced Red Blood Cells Blood Bank Comment Hemoglobin 8.9 GM/DL Hematocrit 26.8 % Blood Gas Puncture Site RT RADIAL RT RADIAL Blood Gas Patient Temperature 98.6 98.6 Blood Gas HCO3 19 mmol/L 17 mmol/L Blood Gas Base Excess -7.7 mmol/L -6.6 mmol/L Blood Gas Oxygen Saturation 91 % 97 % Arterial Blood pH 7.19 7.40 Arterial Blood Partial 52 mmHg 28 mmHg Pressure CO2 Arterial Blood Partial 88 mmHg 181 mmHg Pressure O2 Arterial Blood Oxygen Content 11.7 Vol % 11.8 Vol % Arterial Blood 1.6 % 1.9 % Carboxyhemoglobin Arterial Blood Methemoglobin 1.1 % 1.0 % Blood Gas Hemoglobin 9.0 G/DL 8.3 G/DL Oxygen Delivery Device VENTILATOR VENTILATOR Blood Gas Ventilator Setting PRVC PRVC Blood Gas Inspired Oxygen 60 % Culture Results Microbiology Date/Time Procedure Status Source Growth 05/03/17 11:40 Stool Occult Blood (BARBARA) - Final Complete Stool Stool HEMOCCULT POSITIVE 05/03/17 13:55 Gram Stain - Final Complete Sputum Endotracheal 05/03/17 13:55 Sputum Culture - Final Complete Sputum Endotracheal HEAVY GROWTH NORMAL RESPIRATORY PRAVIN 05/03/17 19:15 Aerobic Blood Culture - Preliminary Resulted Blood Peripheral NO GROWTH IN 2 DAYS 05/03/17 19:15 Anaerobic Blood Culture - Preliminary Resulted Blood Peripheral NO GROWTH IN 2 DAYS 05/03/17 19:22 Aerobic Blood Culture - Preliminary Resulted Blood Peripheral NO GROWTH IN 2 DAYS 05/03/17 19:22 Anaerobic Blood Culture - Preliminary Resulted Blood Peripheral NO GROWTH IN 2 DAYS Imaging Studies Last 24 hours Impressions Chest X-Ray 05/06/17 0000 Signed Impressions: Service Date/Time: Saturday, May 06, 2017 02:51 - CONCLUSION: 1. Right- sided [place] loop thoracostomy tubes are stable in position. Worsening left-sided effusion and persistent right-sided effusion. 2. Bilateral airspace disease, right greater than left. These appear worse when compared to the prior exam. 3. Interval removal of the nasogastric tube. Endotracheal tube remains appropriately positioned above the adelita. Antonio Lopez MD Administered Medications Medications (Trade) Dose Ordered Sig/Rhea Route PRN Reason Start Time Stop Time Status Last Admin Dose Admin Sodium Chloride (NS 1000 ml Inj) 1,000 ml @ 0 mls/hr Q24H IV 04/21/17 13:45 04/25/17 14:03 Miscellaneous Information Patient in critical care unit? Ass... Q361D .XX 04/22/17 02:45 04/22/17 02:45 Rifaximin (Xifaxan) 550 mg BID PO 04/23/17 21:00 05/06/17 08:11 Lactulose (Lactulose Liq) 30 ml DAILY PO 04/24/17 09:00 05/06/17 08:11 Magnesium Oxide (Mag-Ox) 400 mg Q12HR PO 04/28/17 21:00 05/06/17 08:11 Potassium Chloride (KCl Powder) 20 meq Q12HR NG 04/28/17 21:00 05/06/17 03:33 Pantoprazole Sodium (Protonix Inj) 40 mg DAILY IV PUSH 04/28/17 11:30 05/06/17 08:10 Artificial Tears (Lacrilube Opht Oint) 1 applic Q12HR EACH EYE 04/28/17 21:00 05/06/17 08:13 Albumin Human 25 gm 25 gm Q8H IV 04/29/17 10:00 05/06/17 08:15 Heparin Sodium/ Dextrose (Heparin-D5W Inj) 250 ml @ 0 mls/hr TITRATE IV 05/01/17 06:30 05/06/17 01:22 Metoprolol Tartrate (Lopressor) 50 mg Q8H PO 05/01/17 17:00 05/06/17 08:11 Amiodarone HCl 200 mg 200 mg DAILY PO 05/02/17 10:15 Hold 05/05/17 08:50 Cefepime HCl 2000 mg/Sodium Chloride 100 ml @ 200 mls/hr Q12H IV 05/03/17 13:00 05/06/17 00:23 Amiodarone HCl 450 mg/Dextrose 250 ml @ 0 mls/hr CONTINUOUS IV 05/03/17 18:15 05/05/17 21:01 Diltiazem HCl/ Sodium Chloride (Cardizem Inj/NS Inj) 125 ml @ 0 mls/hr TITRATE IV 05/03/17 23:45 05/05/17 15:20 Bumetanide (Bumex Inj) 2 mg BID@,18 IV PUSH 05/04/17 18:00 05/06/17 08:11 Chlorhexidine Gluconate (Peridex 0.12% Liq) 15 ml BID@08,20 MT 05/06/17 08:00 05/06/17 08:14 Objective Remarks GENERAL: Intubated male, supine in bed, resting. SKIN: Warm and dry. HEAD: Normocephalic. EYES: No injection or drainage. NECK: Supple, trachea midline. CARDIOVASCULAR: +S1/S2; RESPIRATORY: scattered rhonchi. on mechanical ventilation. bilateral pigtail catheters in place GASTROINTESTINAL: Abdomen distended EXTREMITIES: No cyanosis NEUROLOGICAL: intubated, asleep Assessment/Plan Problem List: (1) Thrombocytopenia Status: Acute Plan: 05/06: CBC pending today. expect platelets to continue to recover. will monitor. --multifactorial most likely due to staph aureus sepsis and/or antibiotic and cephazolin. --HIT negative --h/o Hepatitis C --++Cirrhosis of the liver with ascites. --Once the infection clears up, expect his platelet count to improve. --cephazolin can also cause severe thrombocytopenia. (2) Sepsis Status: Acute Plan: --on abx per primary team --Methicillin-sensitive staph aureus sepsis as well as subacute bacterial peritonitis. Assessment 57y/o male admitted with sepsis, possible spontaneous bacterial peritonitis. hematology consulted for evaluation of thrombocytopenia. history of arthritis, atrial fibrillation, hypertension, gastroesophageal reflux disease and central pontine myelinolysis. He also has a history of alcoholism, hepatitis C, and liver cirrhosis. The patient has had previously multiple paracentesis for his end-stage liver disease. h/o Tracheostomy. G-tube placement last year. Attending Statement no new problems Plat are coming up The exam, history, and the medical decision-making described in the above note were completed with the assistance of the mid-level provider. I reviewed and agree with the findings presented. I attest that I had a [id number] encounter with the patient on the same day, and personally performed and documented my assessment and findings in the medical record. Problem Qualifiers (1) Sepsis: Qualified Code: A41.9 - Sepsis, due to unspecified organism Kelle Dacosta May 06, 2017 09:44 Carli Hope MD May 06, 2017 09:58
--- NOTE | 2017-05-06 10:59 | HHI.NPPN ---
Subjective General Problems: Anemia Renal Failure: Acute Interval History He was extubated last evening, had to be reintubated due to copious oral secretions. Creatinine is worse. He is still making urine. The nurse irrigated morris but it was not occluded. (Carolina Brandon) Review of Systems General General Remarks unable to evaluate (Carolina Brandon) Objective Data Data 05/05/17 05/06/17 18:59 06:59 Intake Total 947 ml 1812 ml Output Total 1730 ml 2410 ml Balance -783 ml -598 ml IV Total 451 ml 692 ml Tube Feeding 496 ml Albumin 1000 ml Other 120 ml Output Urine Total 200 ml 550 ml Stool Total 600 ml 300 ml Chest Tube Drainage Total 930 ml 1560 ml Vital Signs Date Time Temp Pulse Resp B/P Pulse Ox O2 Delivery O2 Flow Rate FiO2 05/06/17 08:00 98.6 60 20 126/64 100 05/06/17 08:00 60 05/06/17 08:00 60 05/06/17 07:00 100 Mechanical Ventilator 60 05/06/17 06:00 59 05/06/17 04:00 97.7 80 25 147/83 100 05/06/17 04:00 60 05/06/17 04:00 80 05/06/17 03:30 100 60 05/06/17 02:40 60 05/06/17 02:40 98 60 05/06/17 02:00 120 05/06/17 00:00 126 05/06/17 00:00 98.3 126 32 177/84 95 05/05/17 22:00 119 05/05/17 20:22 94 Non-Rebreather 15.00 05/05/17 20:00 116 05/05/17 20:00 98.1 116 27 154/81 97 05/05/17 19:00 97 Non-Rebreather 15.00 05/05/17 18:35 94 Non-Rebreather 15.00 05/05/17 18:00 121 05/05/17 17:05 96 Venturi Mask 6.00 50 05/05/17 17:05 96 Venturi Mask 6 50 05/05/17 17:00 92 Venturi Mask 6.00 50 05/05/17 16:24 99 40 8/17/17 16:15 98.9 96 23 134/75 100 05/05/17 16:00 40 05/05/17 16:00 101 05/05/17 16:00 98.6 101 23 134/75 100 05/05/17 14:38 100 45 05/05/17 14:00 105 05/05/17 13:55 99.1 96 26 146/75 100 05/05/17 13:31 99.0 116 25 130/64 99 05/05/17 12:00 114 05/05/17 12:00 98.4 114 22 105/79 100 05/05/17 12:00 40 (Carolina Brandon) -: 05/05/17 1917 05/05/17 0456 Imaging Last 72 hours Impressions Chest X-Ray 05/06/17 0000 Signed Impressions: Service Date/Time: Saturday, May 06, 2017 02:51 - CONCLUSION: 1. Right- sided [place] loop thoracostomy tubes are stable in position. Worsening left-sided effusion and persistent right-sided effusion. 2. Bilateral airspace disease, right greater than left. These appear worse when compared to the prior exam. 3. Interval removal of the nasogastric tube. Endotracheal tube remains appropriately positioned above the adelita. Antonio Lopez MD Chest X-Ray 05/05/17 0600 Signed Impressions: Service Date/Time: April 04:04 - CONCLUSION: Stable bilateral partially consolidated infiltrates. Kwaku Haro MD Chest X-Ray 05/04/17 0600 Signed Impressions: Service Date/Time: Thursday, May 04, 2017 04:40 - CONCLUSION: Stable bilateral infiltrates, right greater than left. Kwaku Haro MD Tubes & Lines: [place] Tubes & Lines Comment TLC, rectal tube, chest tube bilaterally Drip Comment heparin, amiodarone, Cardizem (Carolina Brandon) Physical Exam General Appearance: No Acute Distress, Comfortable, Malnourished (Carolina Brandon) Throat Throat Exam: Oral Mucosa [place] & Moist (Carolina Brandon) Pulmonary Resp Exam: Breath Sounds Equal, Crackles, Rhonchi, Sputum Resp Remarks intubated (Carolina Brandon) Cardiology CV Exam: Good Perfusion, Irregular, Tachycardia (Carolina Brandon) Gastrointestinal/Abdomen GI Exam: Non-Tender, Bowel Sounds Present, Distended GI Remarks large ventral hernia is present (Carolina Brandon) Musculoskeletal MS Exam: Joints Intact, Normal Tone, Unable to Ambulate (Carolina Brandon) Integumentary Skin Exam: Warm, Dry Skin Remarks sacral ulcer, right arm with bruising (Carolina Brandon) Extremeties Extremities Exam: Pedal Pulses Palpable, Moderate Edema, Pitting Edema, Dependent Edema Extremeties Remarks upper extremity edema persists, lower extremity edema improved (Carolina Brandon) Neurologic Neuro Exam: Awake, Moving All Extremities, Sedated (Carolina Brandon) VTE Prophylaxis Device: SCDs Meds: Heparin (Carolina Brandon) Assessment/Plan Assessment Summary: HILARY/Acute Renal Failure, Fluid/Volume Overload, Hypertension Problem List: (1) Acute renal failure Plan: In a patient with normal renal function on arrival HILARY may be due to hypoperfusion injury with possible ATN still with fluid overload, but has negative fluid balance today, being diuresed BUmex 2 mg BID adn given an extra dose yesterday urine output marginal, continue to monitor repeat renal panel tomorrow depending on response to above may require dialysis support over the weekend monitor renal function, avoid IVF and nephrotoxic medications (2) Bacterial peritonitis Plan: ID has evaluated MSSA, on cefepime , vancomycin was stopped monitor clinically he is on tube feeding through OG tube (3) Atrial fibrillation with RVR Plan: with RVR, rate is better continue to require amiodarone, Cardizem gtts,, as well as heparin for anticoagulation blood pressure is acceptable monitor (4) HTN (hypertension) Plan: continue medications as ordered follow blood pressure (5) Anemia Plan: with coagulopathy, possibly related to liver disease he is Hemoccult positive transfused 05/05, Hb is better (Carolina Barndon) Plan patient was seen and examined. Agree with above assessment and plan. Discussed with Dr. Landin. To start Bumex drip. Poor prognosis. Dialysis will not change his poor outcome. (Feng Garcia MD) Carolina Brandon May 06, 2017 10:59 Feng Garcia MD May 06, 2017 20:43
[2017-05-06 11:32] LABS: AUTOMATED NEUTROPHIL # 8.3 TH/MM3 (1.8-7.7); BASOPHIL # 0.1 TH/MM3 (0-0.2); BASOPHIL % 0.7 % (0.0-2.0); EOSINOPHIL # 0.1 TH/MM3 (0-0.4); EOSINOPHIL % 0.6 % (0.0-4.0); HEMATOCRIT 26.5 % (39.0-51.0); HEMO FLAGS DIFF FINAL; LYMPH % 4.6 % (9.0-44.0); LYMPHOCYTE # 0.4 TH/MM3 (1.0-4.8); MEAN CELL VOLUME 86.1 FL (80.0-100.0); MEAN CORPUSCULAR HEMOGLOBIN 27.8 PG (27.0-34.0); MEAN CORPUSCULAR HGB CONC 32.2 % (32.0-36.0); MONO % 7.3 % (0.0-8.0); NEUT % 86.8 % (16.0-70.0); PLATELET COUNT 134 TH/MM3 (150-450); RED BLOOD COUNT 3.08 MIL/MM3 (4.50-5.90); RED CELL DISTRIBUTION WIDTH 18.9 % (11.6-17.2); WHITE BLOOD COUNT 9.5 TH/MM3 (4.0-11.0)
[2017-05-06 11:38] LABS: APTT (PATIENT) 62.2 SEC (24.3-30.1)
[2017-05-06 11:59] LABS: ALKALINE PHOSPHATASE 46 U/L (45-117); ALT (GPT) LESS THAN 6 U/L (12-78); ANION GAP 14 MEQ/L (5-15); AST (GOT) 21 U/L (15-37); BICARBONATE 18.2 MEQ/L (21.0-32.0); BLOOD UREA NITROGEN 69 MG/DL (7-18); CHLORIDE 106 MEQ/L (98-107); GLOMERULAR FILTRATION RATE 19 ML/MIN (>89); POTASSIUM 4.6 MEQ/L (3.5-5.1); SODIUM (NA) 138 MEQ/L (136-145); TOTAL BILIRUBIN ADULT 1.3 MG/DL (0.2-1.0)
[2017-05-06] MEDS: DILTIAZEM 125 MG/NS 100 ML IV SCH ×2 (12:18)
--- NOTE | 2017-05-06 13:09 | HHI.IDPN ---
Subjective Subjective Remarks ID [id number] Mr. Forrest is a 56 year old male patient with cirrhosis, osteoarthritis, atrial fibrillation, hypertension, GERD, sleep apnea, central pontine myelinolysis, EtOH abuse and ascites requiring paracentesis who presented to [facility] ED on 04/20/2017 for evaluation of decreased oral intake and abdominal distention with ascites. Patient had associated left abdominal pain near hernia site. No history of vomiting, having diarrhea (dark in color) for 1 day. Patient's significant other reported he had been declining for 2 weeks and had not been eating or drinking for 2-3 days. Upon presentation to the ED, the patient was tachycardic. An EKG showed atrial fibrillation with RVR; patient is not on anticoagulation therapy. Patient was evaluated in the ED and the suspicion for sepsis. His WBC count was 15.2, platelets 256. His sodium was 133, lactic acid 2.8 and creatinine 1.25. Blood culture drawn on admission is now positive for methicillin sensitive staph aureus as documented by verigene testing. Chest x-ray shows left lower lobe consolidation and pleural effusion. A CT abdomen and pelvis showed moderate volume free fluid associated with peritoneal thickening as well as possible loculations. The patient was started on IV antibiotics and fluids per sepsis protocol. Patient's heart rate remained elevated, maintaining blood pressure, on Cardizem drip. Patient was admitted to CICU for further evaluation and medical management. A CT-guided abdominal ultrasound with paracentesis was completed on 04/21/2017 for ascites with a total of 650 cc of clear, yellow [place]. [place] [address]; peritoneal RBC elevated at 411. Cytology pending. Cardiology consulted for A. fib with RVR on 04/21/2017. GI is following. Per EMR, patient has a history of GI bleed in 2015 secondary to portal hypertension gastropathy; patient had an EGD at that time. Hepatitis C quantitative and genotype pending. 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 Vital Signs Date Time Temp Pulse Resp B/P Pulse Ox O2 Delivery O2 Flow Rate FiO2 05/06/17 10:00 56 05/06/17 08:00 98.6 60 20 126/64 100 05/06/17 08:00 60 05/06/17 08:00 60 05/06/17 07:00 100 Mechanical Ventilator 60 05/06/17 06:00 59 05/06/17 04:00 97.7 80 25 147/83 100 05/06/17 04:00 60 05/06/17 04:00 80 05/06/17 03:30 100 60 05/06/17 02:40 60 05/06/17 02:40 98 60 05/06/17 02:00 120 05/06/17 00:00 126 05/06/17 00:00 98.3 126 32 177/84 95 05/05/17 22:00 119 05/05/17 20:22 94 Non-Rebreather 15.00 05/05/17 20:00 116 05/05/17 20:00 98.1 116 27 154/81 97 05/05/17 19:00 97 Non-Rebreather 15.00 05/05/17 18:35 94 Non-Rebreather 15.00 05/05/17 18:00 121 05/05/17 17:05 96 Venturi Mask 6.00 50 05/05/17 17:05 96 Venturi Mask 6 50 05/05/17 17:00 92 Venturi Mask 6.00 50 05/05/17 16:24 99 40 05/05/17 16:15 98.9 96 23 134/75 100 05/05/17 16:00 40 05/05/17 16:00 101 05/05/17 16:00 98.6 101 23 134/75 100 05/05/17 14:38 100 45 05/05/17 14:00 105 05/05/17 13:55 99.1 96 26 146/75 100 05/05/17 13:31 99.0 116 25 130/64 99 05/05/17 05/05/17 05/06/17 15:00 23:00 07:00 Intake Total 947 ml 813 ml 999 ml Output Total 1730 ml 1110 ml 1300 ml Balance -783 ml -297 ml -301 ml IV Total 451 ml 313 ml 379 ml Tube Feeding 496 ml Albumin 500 ml 500 ml Other 120 ml Output Urine Total 200 ml 300 ml 250 ml Stool Total 600 ml 200 ml 100 ml Chest Tube Drainage Total 930 ml 610 ml 950 ml . Laboratory Tests Test 05/05/17 05/05/17 05/06/17 04:56 19:17 10:24 White Blood Count 6.0 TH/MM3 9.5 TH/MM3 Red Blood Count 2.54 MIL/MM3 3.08 MIL/MM3 Hemoglobin 7.1 GM/DL 8.9 GM/DL 8.6 GM/DL Hematocrit 21.7 % 26.8 % 26.5 % Mean Corpuscular Volume 85.6 FL 86.1 FL Mean Corpuscular Hemoglobin 28.2 PG 27.8 PG Mean Corpuscular Hemoglobin 32.9 % 32.2 % Concent Red Cell Distribution Width 19.8 % 18.9 % Platelet Count 117 TH/MM3 134 TH/MM3 Mean Platelet Volume 8.7 FL 8.9 FL Neutrophils (%) (Auto) 81.9 % 86.8 % Lymphocytes (%) (Auto) 5.9 % 4.6 % Monocytes (%) (Auto) 9.4 % 7.3 % Eosinophils (%) (Auto) 1.9 % 0.6 % Basophils (%) (Auto) 0.9 % 0.7 % Neutrophils # (Auto) 4.9 TH/MM3 8.3 TH/MM3 Lymphocytes # (Auto) 0.4 TH/MM3 0.4 TH/MM3 Monocytes # (Auto) 0.6 TH/MM3 0.7 TH/MM3 Eosinophils # (Auto) 0.1 TH/MM3 0.1 TH/MM3 Basophils # (Auto) 0.1 TH/MM3 0.1 TH/MM3 CBC Comment DIFF FINAL DIFF FINAL Differential Comment Laboratory Tests Test 05/05/17 05/06/17 04:56 10:24 Sodium Level 136 MEQ/L 138 MEQ/L Potassium Level 3.6 MEQ/L 4.6 MEQ/L Chloride Level 106 MEQ/L 106 MEQ/L Carbon Dioxide Level 21.5 MEQ/L 18.2 MEQ/L Anion Gap 9 MEQ/L 14 MEQ/L Blood Urea Nitrogen 65 MG/DL 69 MG/DL Creatinine 2.80 MG/DL 3.41 MG/DL Estimat Glomerular Filtration 23 ML/MIN 19 ML/MIN Rate Random Glucose 145 MG/DL 96 MG/DL Calcium Level 8.0 MG/DL 8.8 MG/DL Total Bilirubin 0.8 MG/DL 1.3 MG/DL Aspartate Amino Transf 21 U/L 21 U/L (AST/SGOT) Alanine Aminotransferase LESS THAN 6 U/L LESS THAN 6 U/L (ALT/SGPT) Alkaline Phosphatase 57 U/L 46 U/L Total Protein 6.7 GM/DL 7.0 GM/DL Albumin 3.3 GM/DL 3.7 GM/DL Microbiology Date/Time Procedure Status Source Growth 05/03/17 13:55 Gram Stain - Final Complete Sputum Endotracheal 05/03/17 13:55 Sputum Culture - Final Complete Sputum Endotracheal HEAVY GROWTH NORMAL RESPIRATORY TIANA 05/03/17 19:15 Aerobic Blood Culture - Preliminary Resulted Blood Peripheral NO GROWTH IN 3 DAYS 05/03/17 19:15 Anaerobic Blood Culture - Preliminary Resulted Blood Peripheral NO GROWTH IN 3 DAYS 05/03/17 19:22 Aerobic Blood Culture - Preliminary Resulted Blood Peripheral NO GROWTH IN 3 DAYS 05/03/17 19:22 Anaerobic Blood Culture - Preliminary Resulted Blood Peripheral NO GROWTH IN 3 DAYS Imaging Chest X-Ray 05/06/17 0000 Signed Impressions: Service Date/Time: Saturday, May 06, 2017 02:51 - CONCLUSION: 1. Right- sided Sylvester loop thoracostomy tubes are stable in position. Worsening left-sided effusion and persistent right-sided effusion. 2. Bilateral airspace disease, right greater than left. These appear worse when compared to the prior exam. 3. Interval removal of the nasogastric tube. Endotracheal tube remains appropriately positioned above the adelita. Antonio Lopez MD Chest X-Ray 05/05/17 06 Signed Impressions: Service Date/Time: April 04:04 - CONCLUSION: Stable bilateral partially consolidated infiltrates. Kwaku Haro MD Chest X-Ray 05/04/17 06 Signed Impressions: Service Date/Time: Thursday, May 04, 2017 04:40 - CONCLUSION: Stable bilateral infiltrates, right greater than left. Kwaku Haro MD Last Impressions Chest X-Ray 04/30/17 0600 Signed Impressions: Service Date/Time: Sunday, April 30, 2017 03:45 - CONCLUSION: 1. Tiny right apical pneumothorax. 2. No pneumothorax on the left. 3. Minimal bilateral airspace disease. Charlie Claudio MD Brain MRI 04/29/17 Signed Impressions: Service Date/Time: Saturday, April 29, 2017 10:08 - CONCLUSION: 1. No evidence of acute infarct, hemorrhage, mass or edema. 2. No evidence of pontine myelinolysis. 3. 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 Escobar Antony MD Chest Tube Insertion 04/28/17 1555 Signed Impressions: Service Date/Time: April 15:51 - CONCLUSION: Uncomplicated chest tube placement as above. Escobar Antony MD Chest CT 04/28/17 0000 Signed Impressions: Service Date/Time: , April 28, 2017 15:51 - CONCLUSION: 1. Bilateral pleural effusions as described. 2. Extensive patchy consolidating infiltrates both lungs. 3. Cardiomegaly. 4. Ascites. Escobar Antony MD Abdomen X-Ray 04/28/17 Signed Impressions: Service Date/Time: April 11:21 - CONCLUSION: Nonspecific bowel gas pattern with some mild gaseous distention of the colon. There is an NG tube in stomach. Srinivasan Ivory MD Upper Extremity Ultrasound 04/23/17 Signed Impressions: Service Date/Time: Sunday, April 23, 2017 10:50 - CONCLUSION: DVT in the right upper extremity seen in the right basilic vein. There is also superficial thrombus in the right cephalic vein. Mushtaq Brown MD Cyst Biopsy Asp-Paracentesis US 04/21/17 Signed Impressions: Service Date/Time: April 11:07 - CONCLUSION: Uncomplicated ultrasound guided paracentesis. Please note that the fluid throughout the abdomen is extremely complex with septations. This can be seen when the fluid has become infected or is complicated by hemorrhage or malignancy. Mushtaq Alexis MD Abdomen/Pelvis CT 04/20/17 Signed Impressions: Service Date/Time: Thursday, April 20, 2017 13:56 - CONCLUSION: 1. Moderate volume free fluid in the abdomen and pelvis with possible associated peritoneal thickening. Thickening of the peritoneal lining can be seen with infection. 2. Large right and moderate size left pleural effusion with associated compressive atelectasis. 3. There is an umbilical hernia containing fluid and fat and fluid containing hernia superior and to the left of the umbilicus. This hernia also contains a portion of the transverse colon. 4. Nonacute findings include changes related to chronic liver disease including recanalized paraumbilical vein and bilateral gynecomastia. 5. Other nonacute findings include cholelithiasis and moderate atherosclerotic disease. Mushtaq Alexis MD Physical Exam GENERAL: Opens eyes, responding, on the vent, NAD SKIN: Dry, decreased turgor, with decreasing overall edema. has dependent erythema lower trunk and saumya thighs HEAD: Atraumatic. Normocephalic. No temporal or scalp tenderness. EYES: Pupils equal round and reactive. Extraocular motions intact. No scleral icterus. No injection or drainage. ENT: Nose without bleeding, purulent drainage. Orally intubated NECK: Trachea midline. Supple, nontender, no meningeal signs. CARDIOVASCULAR: Irregular SiS2, tachycardic, no rub RESPIRATORY: Clear to auscultation. Breath sounds equal bilaterally but decreased in the bases. b/l CTs with serous drainage GASTROINTESTINAL: Abdomen tensely distended, tender on palpation, tympanitic on percussion. At site of prior PEG tube there is a large balloting hernia. Has erythema on L abdominal wall MUSCULOSKELETAL: Extremities without clubbing, cyanosis. No embolic lesions. 3-4 + pitting edema NEUROLOGICAL: Awake and responding Psych: unable to assess IV line sites with no e.o infection. Assessment & Plan Remarks Possible new sepsis (fever and tachycardia), Workup ongoing. MSSA sepsis, source, ?endocarditis, ?loculated ascites. Pneumonia ? septic emboli. Not an aspiration risk. ESLD with ascites. S/P paracentesis, fluid exudative, loculated. Peritonitis MSSA. SBP, MSSA Hypotension ? hypoalbuminemia ? sepsis related. - BP better not on pressors Atrial fib with RVR Respiratory failure, reintubated; - fluid overload, b/l effusions sp bl CT - no e/o empyema Acute renal failure: diuretics, antibiotics ? Acute thrombocytopenia: ? ESLD, ? HIT, ? sepsis. PLAN Continue Cefepime IV for now. Sputum cultures with normal resp tiana. Negative Cdiff PCR Doppler LE negative. Follow cultures Monitor progress Monitor temps D/W RN Nichole Mccurdy MD May 06, 2017 13:09 Nichole Mccurdy MD May 06, 2017 13:09
--- NOTE | 2017-05-06 13:19 | HHI.CCPN ---
Subjective Remarks/Hospital Course History of Present Illness Mr. Forrest is a 56 year old male patient with cirrhosis secondary to hepatitis C and alcohol dependence, atrial fibrillation, hypertension, GERD, sleep apnea, history of central pontine myelinolysis,ascites requiring paracentesis who admitted to [facility] with on 04/20/2017 for evaluation of decreased oral intake, probable sepsis and ascites. An EKG on admission showed atrial fibrillation with RVR. His initial WBC count was 15K. Infectious disease was consulted and patient was placed on broad-spectrum antibiotic. Recently underwent paracentesis by IR on 04/21/17 with the fluid was described as loculated and septated. Fluid culture grew MSSA. 3 out of 4 blood cultures on 04/20/17 growing MSSA. For Atrial fibrillation with RVR patient was placed on Cardizem drip. Paracentesis on 04/21/2017 650 ccfluid removed. Peritoneal WBC - [id number]; peritoneal RBC - 411. Patient had been receiving Ancef and vancomycin per ID recommendation Critical care medicine was consulted today a.m. as patient was increasingly short of breath and dyspneic and hypoxemic. Patient was placed on BiPAP 15/7 at 80% oxygen. I immediately evaluated the patient he appeared to be in moderate to severe distress. Bedside ultrasound showed large right-sided pleural effusion. I gave him 25 g of albumin and performed thoracentesis with 2 L of fluid removal. Chest x-ray postprocedure showed significant clearing of the right lung field but increased edema involving the left lung field. It is possible that patient has developed reexpansion pulmonary edema, I gave him 2 mg of IV bumex. Repeat Chest x-ray continues to show bilateral pulmonary edema , I have signed out this case to Dr. Bob who will most likely intubated the patient. Subjective subjective: 04/26: The patient required intubation, due to hypoxemic respiratory failure last a.m.. Patient still requires has high oxygen and ventilatory requirements,PEEP increased to 10. Aggressive diuresis continues. The patient converted to normal sinus rhythm yesterday afternoon amiodarone has been discontinued Cardizem has been discontinued. The patient continues on metoprolol twice a day. 04/27: Decreased urinary output overnight. Bumex 1 mg/hour instituted. Plan for repeat paracentesis procedure. The patient remains normal sinus rhythm. 04/28: Afebrile. Paracentesis today only 300 cc. Possibly slightly loculated. Weaning back loop diuretic in light of worsening renal function. Plan for right-sided pigtail catheter for recurrent pleural effusion. In attempt to wean off ventilator. Tolerating tube feeding at 10 cc an hour 04/29: Patient had a IR placed 10 [place] chest tube on the right side with 1.7 L drained. Urine output 3.3 L in 24 hours. Remains severely encephalopathic. Bedside US shows moderate L effusion 81/2: Remains intubated. Developed Afib with RVR, rate 150-160. Cardizem gtt after 20 mg IVP with no improvement. Metoprolol 5 mg IVPx1. Start Amiodarone if not improved (already on full anticoagulation. Chest x-ray today shows bilateral pigtail chest tubes in place and tiny right apical pneumothorax (R pigtail was placed by radiology). Patient remains encephalopathy despite being off sedation 05/01: Remains in normal sinus rhythm, rate controlled, on IV Cardizem and IV amiodarone. Patient remains encephalopathy, but more spontaneous eye opening. Lovenox change to IV heparin due to worsening renal failure. Also IV Bumex held due to increasing creatinine 05/02: Remains intubated, off sedation. More awake. Weakly following x4. UO 800 ml in 24 hours. Give 2 mg IV Bumex. Change Amio to PO 05/03: Continues to spike high fever 102.5. CXR despite bilateral chest tube and 1.6L output in 24 hours shows R> L consolidation/effusion. Creat worsening. Will hold Diuretics. Send sputum and blood cultures, give single dose of vanc and cefepime. D/W Dr. Gonzalez. Hb 6.9, will give 1U PRBC. Platelet count steadily improving 94 today 05/04: Continues to spike fever 101.5. Not tolerating CPAP. Back to Afib with RVR. Chest tube output 1.3L combined. Creat 2.5, UO 580 ml in 24 hours. Consult nephrology. Doubt successful vent weaning without trach. Will also consult nephrology Subjective 05/05: Remains on Cardizem and amiodarone infusions for atrial fibrillation, remains also on IV heparin. Hemoglobin has dropped to 7.1 I will give 1 unit PRBC transfusion. Chest x-ray unchanged. Bilateral chest tubes with 1.5 mg in 24 hours. Creatinine worsening to 2.8 urine output is 900 mL in 24 hours. Nephrology consulted and they have started Bumex 2 mg IV every 12 05/06: Extubated yesterday but had to be reintubated due to lack of airway protection and hypoxemia around 2 AM today. Creatinine is worsening 3.4 today urine output decreasing 750 mL in 24 hours. Discussed with nephrology Dr. Garcia- recommends Bumex gtt 2 mg per hour for 24 hours, and start dialysis if significant fluid cannot be achieved. Chest x-ray shows persistent bilateral effusions despite chest tube and scheduled Bumex. Overall prognosis is poor, family arriving to [facility] next week. Neurologically patient is following commands with bilateral upper extremities Objective Vital Signs Date Time Temp Pulse Resp B/P Pulse Ox O2 Delivery O2 Flow Rate FiO2 05/06/17 10:00 56 05/06/17 08:00 98.6 20 126/64 100 05/06/17 08:00 60 05/06/17 07:00 Mechanical Ventilator 05/05/17 20:22 15.00 Intake and Output 05/05/17 05/05/17 05/06/17 08:00 16:00 00:00 Intake Total 1374 ml 947 ml 813 ml Output Total 640 ml 1730 ml 1110 ml Balance 734 ml -783 ml -297 ml Result Diagram: 05/06/17 1024 05/06/17 1024 Other Results Microbiology Date/Time Procedure Status Source Growth 05/03/17 13:55 Gram Stain - Final Complete Sputum Endotracheal 05/03/17 13:55 Sputum Culture - Final Complete Sputum Endotracheal HEAVY GROWTH NORMAL RESPIRATORY PRAVIN Laboratory Tests Test 05/06/17 05/06/17 03:15 06:53 Blood Gas Puncture Site RT RADIAL RT RADIAL Blood Gas Patient Temperature 98.6 98.6 Blood Gas HCO3 19 mmol/L 17 mmol/L (22-26) (22-26) Blood Gas Base Excess -7.7 mmol/L -6.6 mmol/L (-2-2) (-2-2) Blood Gas Oxygen Saturation 91 % (90-100) 97 % (90-100) Arterial Blood pH 7.19 7.40 (7.380-7.420) (7.380-7.420) Arterial Blood Partial 52 mmHg (38-42) 28 mmHg (38-42) Pressure CO2 Arterial Blood Partial 88 mmHg 181 mmHg Pressure O2 (61-120) (61-120) Arterial Blood Oxygen Content 11.7 Vol % 11.8 Vol % (12.0-20.0) (12.0-20.0) Arterial Blood 1.6 % (0-4) 1.9 % (0-4) Carboxyhemoglobin Arterial Blood Methemoglobin 1.1 % (0-2) 1.0 % (0-2) Blood Gas Hemoglobin 9.0 G/DL 8.3 G/DL (12.0-16.0) (12.0-16.0) Oxygen Delivery Device VENTILATOR VENTILATOR Blood Gas Ventilator Setting PRVC [facility] Blood Gas Inspired Oxygen 60 % Imaging Last Impressions Chest X-Ray 04/27/17 0600 Signed Impressions: Service Date/Time: Thursday, April 27, 2017 04:29 - CONCLUSION: Overall stable appearance of the chest. Watson Bermeo MD Upper Extremity Ultrasound 04/23/17 0000 Signed Impressions: Service Date/Time: Sunday, April 23, 2017 10:50 - CONCLUSION: DVT in the right upper extremity seen in the right basilic vein. There is also superficial thrombus in the right cephalic vein. Mushtaq Brown MD Cyst Biopsy Asp-Paracentesis US 04/21/17 0000 Signed Impressions: Service Date/Time: April 11:07 - CONCLUSION: Uncomplicated ultrasound guided paracentesis. Please note that the fluid throughout the abdomen is extremely complex with septations. This can be seen when the fluid has become infected or is complicated by hemorrhage or malignancy. Mushtaq Alexis MD Abdomen/Pelvis CT 04/20/17 0000 Signed Impressions: Service Date/Time: Thursday, April 20, 2017 13:56 - CONCLUSION: 1. Moderate volume free fluid in the abdomen and pelvis with possible associated peritoneal thickening. Thickening of the peritoneal lining can be seen with infection. 2. Large right and moderate size left pleural effusion with associated compressive atelectasis. 3. There is an umbilical hernia containing fluid and fat and fluid containing hernia superior and to the left of the umbilicus. This hernia also contains a portion of the transverse colon. 4. Nonacute findings include changes related to chronic liver disease including recanalized paraumbilical vein and bilateral gynecomastia. 5. Other nonacute findings include cholelithiasis and moderate atherosclerotic disease. Mushtaq Alexis MD Objective Remarks GENERAL: 57-year-old critically ill male, intubated not on sedation SKIN: Warm/dry. No rash/well perfused. Ecchymosis bilateral upper and lower extremities HEAD: Atraumatic. Normocephalic. EYES: Pupils equal and round about 4 mm bilaterally and reactive. No scleral icterus. ENT: No nasal bleeding or discharge. Orotracheally intubated NECK: Trachea midline. No JVD. CARDIOVASCULAR: Atrial fibrillation with rapid ventricular response. S1, S2. No S4. No rub. Systolic murmur LSB 2 RESPIRATORY: Air entry diminished bilateral lower lung tate. Few basilar crackles. Bilateral chest tubes in place with no air leak. 2500 ML total output in 24 hours. GASTROINTESTINAL: Abdomen soft, distended from ascites, large ventral hernia. Hypoactive bowel sounds. : Positive scrotal edema. Palmer catheter in place MUSCULOSKELETAL: 1+ edema bilateral upper and lower extremity/anasarca NEUROLOGICAL: Intubated and not on sedation. Spontaneous eye opening today. Follows commands x4 but very weak Procedures Paracentesis Thoracentesis Right pigtail chest tube placement Urinary Catheter: Yes Assessment to: Continue Date of Insertion: Apr 25, 2017 A/P Assessment and Plan Neuro/Psych Metabolic encephalopathy Hx of ETOH abuse History of central pontine myelinolysis with quadriparesis --Monitor mental status closely, metabolic encephalopathy secondary to sepsis --Spontaneous eye opening, following commands x4 weakly --Currently off all sedation. Start fentanyl gtt for patient comfort --MRI brain 04/29 shows resolution of previous osmotic demyelination syndrome CVS Pulmonary edema ? Reexpansion pulmonary edema versus ARDS Atrial fibrillation with RVR -- IV heparin. On Cardizem infusion and Amiodarone infusion for Afib rate control -- Start PO Cardizem 60 mg PO q6hr and and DC Cardizem gtt 05/06 -- Holding Amio 200 mg daily 05/02. Given Digoxin 0.5 mg x1 -- Continue metoprolol, 50mg po q8 -- 2d Echo no evidence of endocarditis, normal ejection fraction 60%. Trace MR. Moderate TR. -- IV albumin 25 g every 8 hours Pulmonary Acute hypoxemic respiratory failure Bilateral pigtail chest tubes for large pleural effusions Probable HCAP - Status post right thoracentesis and 2 L fluid removed with IV albumin infusing 04/25 - Patient developed reexpansion pulmonary edema after thoracentesis - Intubated 04/25 ACV ventilation 18/500/10/40. extubated 05/05, but reintubated am - s/p R pigtail CT 04/28 placed by IR, tiny R apical pneumothorax-now resolved - s/p left chest tube placement 04/29 . Total output 2.5L over 24 hours - Ventilator bundle. - DuoNeb every 6 hours with albuterol aerosols every 2 when necessary - Previous tracheostomy status post decannulation 2015 - Will need trach again due to anticipated prolonged vent support, if family want to continue aggressive care - Palliative care had been discussing with family-they are expected to be here next week - Once family has decided about tracheostomy, consult general surgery due to previous trach GI Spontaneous bacterial peritonitis with MSSA Cirrhotic liver disease secondary to ETOH abuse and Hepatitis C genotype IIIa Protein calorie malnutrition/moderate Ascitesmoderate -- Prior U/S guided paracentesis 04/21/17, fluid was loculated and septated -- Exudative fluid growing MSSA indicating peritonitis -- Antibiotics per ID -- Status post paracentesis 04/28 300 cc removed. Continues to drain from site -- Resume Jevity 1.5 goal 60 cc an hour. 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 -- Discussed with nephrology Dr. Garcia- recommends Bumex gtt 2 mg per hour for 24 hours, and start dialysis if significant fluid cannot be achieved. -- Chest x-ray shows persistent bilateral effusions despite chest tube and scheduled Bumex Endocrine/FEN: Hypokalemia Hypophosphatemia Hypo-magnesium -- Electrolyte replacement protocol Heme Anemia Coagulopathy Thrombocytopenia Right upper extremity superficial thrombosis basilic/cephalic veins -- Anemia, and coagulopathy most likely secondary to chronic liver disease / ETOH use, severe sepsis and consumptive from thrombophlebitis -- HIT negative -- Transfuse 1U PRBC today. stool for Hemoccult +ve. Platelet count improving -- Heparin gtt ID: MSSA bacteremia Spontaneous bacterial peritonitis -- Pertinent cultures: - Blood 04/20: 11/20 bottles MSSA - Ascitic fluid 04/21: MSSA - Cultures from 05/02 neg to date Antibiotics per ID. continue renally dosed cefepime and Diflucan Prophylaxis: GI -pantoprazole DVT - SCDs; and heparin gtt Discussed with bedside CC RN CCT 35 MIN Patient remains critically ill with severe encephalopathy respiratory failure and volume overload along with severe sepsis. Now with bilateral chest tubes and diuresis obtaining negative balance but remains fluid overloaded. May need hemodialysis for fluid removal Seven Landin MD May 06, 2017 13:19
[2017-05-06] MEDS: fentaNYL DRIP 250 ML IV SCH (15:37)
[2017-05-06] MEDS: BUMETANIDE INJ 100 ML IV SCH (15:37)
[2017-05-06] MEDS: AMIODARONE INJ 450 MG in D5W (EXCEL BAG) 241 ML IV SCH (15:37)
--- NOTE | 2017-05-06 15:47 | HHI.GIFU ---
Subjective Remarks Pt trying to get out of bed. Per RN pulled out rectal bag earlier today. ( Julia Decker) Objective Vitals I&O Vital Signs Date Time Temp Pulse Resp B/P Pulse Ox O2 Delivery O2 Flow Rate FiO2 05/06/17 12:00 45 05/06/17 12:00 97.7 58 22 129/64 100 05/06/17 12:00 59 05/06/17 10:00 56 05/06/17 08:00 98.6 60 20 126/64 100 05/06/17 08:00 60 05/06/17 08:00 60 05/06/17 07:00 100 Mechanical Ventilator 60 05/06/17 06:00 59 05/06/17 04:00 97.7 80 25 147/83 100 05/06/17 04:00 60 05/06/17 04:00 80 05/06/17 03:30 100 60 05/06/17 02:40 60 05/06/17 02:40 98 60 05/06/17 02:00 120 05/06/17 00:00 126 05/06/17 00:00 98.3 126 32 177/84 95 05/05/17 22:00 119 05/05/17 20:22 94 Non-Rebreather 15.00 05/05/17 20:00 116 05/05/17 20:00 98.1 116 27 154/81 97 05/05/17 19:00 97 Non-Rebreather 15.00 05/05/17 18:35 94 Non-Rebreather 15.00 05/05/17 18:00 121 05/05/17 17:05 96 Venturi Mask 6.00 50 05/05/17 17:05 96 Venturi Mask 6 50 05/05/17 17:00 92 Venturi Mask 6.00 50 05/05/17 16:24 99 40 05/05/17 16:15 98.9 96 23 134/75 100 05/05/17 16:00 40 05/05/17 16:00 101 05/05/17 16:00 98.6 101 23 134/75 100 I/O 05/05/17 05/05/17 05/05/17 05/06/17 05/06/17 05/06/17 06:59 14:59 22:59 06:59 14:59 22:59 Intake Total 1374 ml 947 ml 813 ml 999 ml Output Total 640 ml 1730 ml 1110 ml 1300 ml Balance 734 ml -783 ml -297 ml -301 ml IV Total 400 ml 451 ml 313 ml 379 ml Tube Feeding 474 ml 496 ml Albumin 500 ml 500 ml 500 ml Other 120 ml Output Urine Total 200 ml 200 ml 300 ml 250 ml Stool Total 0 ml 600 ml 200 ml 100 ml Chest Tube Drainage Total 440 ml 930 ml 610 ml 950 ml Laboratory Laboratory Tests Test 05/05/17 05/06/17 05/06/17 05/06/17 19:17 03:15 06:53 10:24 Hemoglobin 8.9 8.6 Hematocrit 26.8 26.5 Blood Gas Puncture Site RT RADIAL RT RADIAL Blood Gas Patient Temperature 98.6 98.6 Blood Gas HCO3 19 17 Blood Gas Base Excess -7.7 -6.6 Blood Gas Oxygen Saturation 91 97 Arterial Blood pH 7.19 7.40 Arterial Blood Partial 52 28 Pressure CO2 Arterial Blood Partial 88 181 Pressure O2 Arterial Blood Oxygen Content 11.7 11.8 Arterial Blood 1.6 1.9 Carboxyhemoglobin Arterial Blood Methemoglobin 1.1 1.0 Blood Gas Hemoglobin 9.0 8.3 Oxygen Delivery Device VENTILATOR VENTILATOR Blood Gas Ventilator Setting PRVC PRVC Blood Gas Inspired Oxygen 60 White Blood Count 9.5 Red Blood Count 3.08 Mean Corpuscular Volume 86.1 Mean Corpuscular Hemoglobin 27.8 Mean Corpuscular Hemoglobin 32.2 Concent Red Cell Distribution Width 18.9 Platelet Count 134 Mean Platelet Volume 8.9 Neutrophils (%) (Auto) 86.8 Lymphocytes (%) (Auto) 4.6 Monocytes (%) (Auto) 7.3 Eosinophils (%) (Auto) 0.6 Basophils (%) (Auto) 0.7 Neutrophils # (Auto) 8.3 Lymphocytes # (Auto) 0.4 Monocytes # (Auto) 0.7 Eosinophils # (Auto) 0.1 Basophils # (Auto) 0.1 CBC Comment DIFF FINAL Differential Comment Activated Partial 62.2 Thromboplast Time Sodium Level 138 Potassium Level 4.6 Chloride Level 106 Carbon Dioxide Level 18.2 Anion Gap 14 Blood Urea Nitrogen 69 Creatinine 3.41 Estimat Glomerular Filtration 19 Rate Random Glucose 96 Calcium Level 8.8 Total Bilirubin 1.3 Aspartate Amino Transf 21 (AST/SGOT) Alanine Aminotransferase LESS THAN 6 (ALT/SGPT) Alkaline Phosphatase 46 Total Protein 7.0 Albumin 3.7 Date/Time Procedure Status Source Growth 05/03/17 19:22 Aerobic Blood Culture - Preliminary Resulted Blood Peripheral NO GROWTH IN 3 DAYS 05/03/17 19:22 Anaerobic Blood Culture - Preliminary Resulted Blood Peripheral NO GROWTH IN 3 DAYS 05/03/17 13:55 Gram Stain - Final Complete Sputum Endotracheal 05/03/17 13:55 Sputum Culture - Final Complete Sputum Endotracheal HEAVY GROWTH NORMAL RESPIRATORY PRAVIN 05/03/17 11:40 Stool Occult Blood (BARBARA) - Final Complete Stool Stool HEMOCCULT POSITIVE 05/02/17 17:22 Urine Culture - Final Complete Urine Catheterized Urine NO GROWTH IN 48 HOURS. Physical Exam HEENT: Normocephalic; atraumatic; no jaundice. Intubated CHEST: OETT to CPAP. Course breath sounds. Bilateral chest tubes with serous drainage. CARDIAC: irr HR ABDOMEN: Soft, distended with ascites, large ventral hernia and smaller umbilical hernia, nontender, hypoactive bowel sounds. 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 (Julia DeckerP) Assessment and Plan Plan ASSESSMENT - Ascites with SBP. S/P Cyst Biopsy Asp-Paracentesis US (04/21/17)----> Uncomplicated ultrasound guided paracentesis. Please note that the fluid throughout the abdomen is extremely complex with septations. This can be seen when the fluid has become infected or is complicated by hemorrhage or malignancy, 650cc removed. Cytology with numerous neutrophils and macrophages, negative for malignant cells. Cx with Staphylococcus aureus. Bedside paracentesis (04/28/17)----> 300cc removed, Cx with staphylococcus aureus. Cefepime Albumin. Bumex per renal. - Liver cirrhosis. Abdomen/Pelvis CT (04/20/17)----> 1. Moderate volume free fluid in the abdomen and pelvis with possible associated peritoneal thickening. Thickening of the peritoneal lining can be seen with infection. 2. Large right and moderate size left pleural effusion with associated compressive atelectasis. 3. There is an umbilical hernia containing fluid and fat and fluid containing hernia superior and to the left of the umbilicus. This hernia also contains a portion of the transverse colon. 4. Nonacute findings include changes related to chronic liver disease including recanalized paraumbilical vein and bilateral gynecomastia. 5. Other nonacute findings include cholelithiasis and moderate atherosclerotic disease. Has Hepatitis C. LFT stable. - Mild colonic ileus. Abdomen X-Ray (04/28/17)----> Nonspecific bowel gas pattern with some mild gaseous distention of the colon. There is an NG tube in stomach. Lactulose. (+) BM. Tolerate TF, seems distention is more from ascites. Having good bowel movements. - Large ventral hernia, smaller umbilical hernia. Stable. - Anemia, normocytic. He does have hx UGIB in 2014 r/t portal hypertensive gastropathy, but no active bleeding at this time. S/P 1 unit PRBC. - Thrombocytopenia. Hematology following, likely related to abx/sepsis. Improving - Hx of hep-C- quant 22,500 - Right DVT on US, on heparin - Resp. failure, pleural effusin, PNA, on CPAP, bilateral chest tubes - Atrial fibrillation with RVR. On amiodarone, cardizem gtt. Rate 110 Cardiology following. - Acute renal failure. Nephrology following. Bumex. PLAN - TF as tolerated - Cont. Lactulose - Cont. Xifaxan - Cont. Albumin - Diuretics per renal, on Bumex gtt - Monitor HH, Plt - Transfuse as necessary - Supportive care - Further recommendations to follow based on results of above. - Patient seen and examined by Dr. Mix and myself and this note is written on his behalf. (Julia Decker) Physician Comments Patient seen and examined agree with above Continue with current supportive care Monitor labs (Dain Mix MD) Julia Decker May 06, 2017 15:46 Dain Mix MD May 06, 2017 20:43
[2017-05-06] MEDS: DILTIAZEM HCL 60 MG TAB PO SCH ×2 (15:54→19:06)
[2017-05-07] VITALS (16 sets, daily range): BP systolic 124–165; BP diastolic 57–91; PULSE 46–66; RESP 14–22; TEMP 96.1–99.1; O2SAT 98–100
[2017-05-07] MEDS: METOPROLOL TARTRATE 50 MG TAB PO SCH ×3 (00:28→16:45)
[2017-05-07] MEDS: BUMETANIDE INJ 100 ML IV SCH ×3 (00:28→23:44)
[2017-05-07] MEDS: DILTIAZEM HCL 60 MG TAB PO SCH ×4 (00:28→17:11)
[2017-05-07] MEDS: AMIODARONE INJ 450 MG in D5W (EXCEL BAG) 241 ML IV SCH (00:29)
[2017-05-07] MEDS: CEFEPIME INJ 2,000 MG in SODIUM CHLORIDE 0.9% INJ 100 ML IV SCH ×2 (00:30→13:02)
[2017-05-07] MEDS: ALBUMIN HUMAN 5% 25 GM/500 ML BOTTLE IV SCH ×3 (02:07→16:57)
[2017-05-07] MEDS: fentaNYL DRIP 250 ML IV SCH ×2 (05:50→17:06)
[2017-05-07 07:11] LABS: HEMATOCRIT 25.8 % (39.0-51.0); MEAN CELL VOLUME 87.2 FL (80.0-100.0); MEAN CORPUSCULAR HEMOGLOBIN 28.7 PG (27.0-34.0); MEAN CORPUSCULAR HGB CONC 32.9 % (32.0-36.0); PLATELET COUNT 148 TH/MM3 (150-450); RED BLOOD COUNT 2.96 MIL/MM3 (4.50-5.90); RED CELL DISTRIBUTION WIDTH 19.9 % (11.6-17.2); REVIEW FLAG FINAL; WHITE BLOOD COUNT 6.3 TH/MM3 (4.0-11.0)
[2017-05-07 07:12] LABS: APTT (PATIENT) 43.1 SEC (24.3-30.1)
[2017-05-07 07:26] LABS: ANION GAP 13 MEQ/L (5-15); AST (GOT) 11 U/L (15-37); BICARBONATE 18.8 MEQ/L (21.0-32.0); BLOOD UREA NITROGEN 74 MG/DL (7-18); CHLORIDE 106 MEQ/L (98-107); GLOMERULAR FILTRATION RATE 17 ML/MIN (>89); POTASSIUM 4.5 MEQ/L (3.5-5.1); SODIUM (NA) 138 MEQ/L (136-145)
[2017-05-07 07:32] LABS: ALKALINE PHOSPHATASE 45 U/L (45-117); ALT (GPT) LESS THAN 6 U/L (12-78); TOTAL BILIRUBIN ADULT 1.1 MG/DL (0.2-1.0)
[2017-05-07] MEDS: CHLORHEXIDINE 0.12% (ORAL KIT) 15 ML CUP MT SCH ×2 (08:00→21:13)
--- NOTE | 2017-05-07 08:31 | HHI.GIFU ---
Subjective Remarks Resting in bed. Sedated on vent. Off cardizem gtt- on po now. Still on amiodarone. Rate controlled. (Megan Orellana) Objective Vitals I&O Vital Signs Date Time Temp Pulse Resp B/P Pulse Ox O2 Delivery O2 Flow Rate FiO2 05/07/17 07:00 100 Mechanical Ventilator 45 05/07/17 06:00 52 05/07/17 04:24 99 40 05/07/17 04:00 97.5 50 16 124/57 100 05/07/17 04:00 40 05/07/17 04:00 50 05/07/17 02:00 54 05/07/17 00:00 54 05/07/17 00:00 97.7 54 16 133/59 100 05/07/17 00:00 45 05/06/17 23:40 100 45 05/06/17 22:00 55 05/06/17 20:16 98 45 05/06/17 20:00 45 05/06/17 20:00 97.8 59 17 124/57 100 05/06/17 20:00 59 05/06/17 19:00 100 Mechanical Ventilator 45 05/06/17 18:00 54 05/06/17 17:53 100 45 05/06/17 16:00 62 05/06/17 16:00 45 05/06/17 16:00 98.7 62 20 138/63 100 05/06/17 15:30 61 05/06/17 14:00 61 05/06/17 12:00 45 05/06/17 12:00 97.7 58 22 129/64 100 05/06/17 12:00 59 05/06/17 10:00 100 45 05/06/17 10:00 56 I/O 05/06/17 05/06/17 05/06/17 05/07/17 05/07/17 05/07/17 07:00 15:00 23:00 07:00 15:00 23:00 Intake Total 999 ml 981 ml 978 ml 1360 ml Output Total 1300 ml 1120 ml 720 ml 740 ml Balance -301 ml -139 ml 258 ml 620 ml IV Total 379 ml 281 ml 288 ml 536 ml Tube Feeding 10 ml 124 ml Albumin 500 ml 500 ml 500 ml 500 ml Other 120 ml 200 ml 180 ml 200 ml Output Urine Total 250 ml 140 ml 50 ml 60 ml Stool Total 100 ml 150 ml 200 ml 100 ml Chest Tube Drainage Total 950 ml 830 ml 470 ml 580 ml Laboratory Laboratory Tests Test 05/06/17 05/07/17 10:24 06:17 White Blood Count 9.5 6.3 Red Blood Count 3.08 2.96 Hemoglobin 8.6 8.5 Hematocrit 26.5 25.8 Mean Corpuscular Volume 86.1 87.2 Mean Corpuscular Hemoglobin 27.8 28.7 Mean Corpuscular Hemoglobin 32.2 32.9 Concent Red Cell Distribution Width 18.9 19.9 Platelet Count 134 148 Mean Platelet Volume 8.9 9.3 Neutrophils (%) (Auto) 86.8 Lymphocytes (%) (Auto) 4.6 Monocytes (%) (Auto) 7.3 Eosinophils (%) (Auto) 0.6 Basophils (%) (Auto) 0.7 Neutrophils # (Auto) 8.3 Lymphocytes # (Auto) 0.4 Monocytes # (Auto) 0.7 Eosinophils # (Auto) 0.1 Basophils # (Auto) 0.1 CBC Comment DIFF FINAL Differential Comment Activated Partial 62.2 43.1 Thromboplast Time Sodium Level 138 138 Potassium Level 4.6 4.5 Chloride Level 106 106 Carbon Dioxide Level 18.2 18.8 Anion Gap 14 13 Blood Urea Nitrogen 69 74 Creatinine 3.41 3.77 Estimat Glomerular Filtration 19 17 Rate Random Glucose 96 95 Calcium Level 8.8 8.6 Total Bilirubin 1.3 1.1 Aspartate Amino Transf 21 11 (AST/SGOT) Alanine Aminotransferase LESS THAN 6 LESS THAN 6 (ALT/SGPT) Alkaline Phosphatase 46 45 Total Protein 7.0 7.0 Albumin 3.7 3.5 Date/Time Procedure Status Source Growth 05/03/17 19:22 Aerobic Blood Culture - Preliminary Resulted Blood Peripheral NO GROWTH IN 3 DAYS 05/03/17 19:22 Anaerobic Blood Culture - Preliminary Resulted Blood Peripheral NO GROWTH IN 3 DAYS 05/03/17 13:55 Gram Stain - Final Complete Sputum Endotracheal 05/03/17 13:55 Sputum Culture - Final Complete Sputum Endotracheal HEAVY GROWTH NORMAL RESPIRATORY PRAVIN 05/03/17 11:40 Stool Occult Blood (BARBARA) - Final Complete Stool Stool HEMOCCULT POSITIVE 05/02/17 17:22 Urine Culture - Final Complete Urine Catheterized Urine NO GROWTH IN 48 HOURS. Imaging Last Impressions Chest X-Ray 05/06/17 Signed Impressions: Service Date/Time: Saturday, May 06, 2017 02:51 - CONCLUSION: 1. Right- sided [place] loop thoracostomy tubes are stable in position. Worsening left-sided effusion and persistent right-sided effusion. 2. Bilateral airspace disease, right greater than left. These appear worse when compared to the prior exam. 3. Interval removal of the nasogastric tube. Endotracheal tube remains appropriately positioned above the adelita. Antonio Lopez MD Lower Extremity Ultrasound 05/02/17 Signed Impressions: Service Date/Time: Tuesday, May 02, 2017 22:03 - CONCLUSION: The study is negative for deep venous thrombosis bilateral lower extremity. Kwaku Haro MD Brain MRI 04/29/17 Signed Impressions: Service Date/Time: Saturday, April 29, 2017 10:08 - CONCLUSION: 1. No evidence of acute infarct, hemorrhage, mass or edema. 2. No evidence of pontine myelinolysis. 3. 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 Escobar Antony MD Chest Tube Insertion 04/28/17 1555 Signed Impressions: Service Date/Time: April 15:51 - CONCLUSION: Uncomplicated chest tube placement as above. Escobar Antony MD Chest CT 04/28/17 Signed Impressions: Service Date/Time: April 15:51 - CONCLUSION: 1. Bilateral pleural effusions as described. 2. Extensive patchy consolidating infiltrates both lungs. 3. Cardiomegaly. 4. Ascites. Escobar Antony MD Abdomen X-Ray 04/28/17 Signed Impressions: Service Date/Time: April 11:21 - CONCLUSION: Nonspecific bowel gas pattern with some mild gaseous distention of the colon. There is an NG tube in stomach. Srinivasan Ivory MD Upper Extremity Ultrasound 04/23/17 Signed Impressions: Service Date/Time: Sunday, April 23, 2017 10:50 - CONCLUSION: DVT in the right upper extremity seen in the right basilic vein. There is also superficial thrombus in the right cephalic vein. Mushtaq Brown MD Cyst Biopsy Asp-Paracentesis US 04/21/17 Signed Impressions: Service Date/Time: April 11:07 - CONCLUSION: Uncomplicated ultrasound guided paracentesis. Please note that the fluid throughout the abdomen is extremely complex with septations. This can be seen when the fluid has become infected or is complicated by hemorrhage or malignancy. Mushtaq Alexis MD Abdomen/Pelvis CT 04/20/17 0000 Signed Impressions: Service Date/Time: Thursday, April 20, 2017 13:56 - CONCLUSION: 1. Moderate volume free fluid in the abdomen and pelvis with possible associated peritoneal thickening. Thickening of the peritoneal lining can be seen with infection. 2. Large right and moderate size left pleural effusion with associated compressive atelectasis. 3. There is an umbilical hernia containing fluid and fat and fluid containing hernia superior and to the left of the umbilicus. This hernia also contains a portion of the transverse colon. 4. Nonacute findings include changes related to chronic liver disease including recanalized paraumbilical vein and bilateral gynecomastia. 5. Other nonacute findings include cholelithiasis and moderate atherosclerotic disease. Mushtaq Alexis MD Physical Exam HEENT: Normocephalic; atraumatic; no jaundice. Intubated CHEST: OETT to CPAP. Course breath sounds. Bilateral chest tubes with serous drainage. CARDIAC: Irregular ABDOMEN: Soft, mildly distended with ascites, large ventral hernia and smaller umbilical hernia, nontender, hypoactive bowel sounds. EXTREMITIES: No edema to lower extremities SKIN: Ecchymosis at bilateral upper and lower extremities [employer]: Lethargic, generalized weakness, follows commands. (Megan OrellanaP) Assessment and Plan Plan ASSESSMENT - Ascites with SBP. S/P Cyst Biopsy Asp-Paracentesis US (04/21/17)----> Uncomplicated ultrasound guided paracentesis. Please note that the fluid throughout the abdomen is extremely complex with septations. This can be seen when the fluid has become infected or is complicated by hemorrhage or malignancy, 650cc removed. Cytology with numerous neutrophils and macrophages, negative for malignant cells. Cx with Staphylococcus aureus. Bedside paracentesis (04/28/17)----> 300cc removed, Cx with staphylococcus aureus. Cefepime Albumin. Bumex gtt per renal. - Liver cirrhosis. Abdomen/Pelvis CT (04/20/17)----> 1. Moderate volume free fluid in the abdomen and pelvis with possible associated peritoneal thickening. Thickening of the peritoneal lining can be seen with infection. 2. Large right and moderate size left pleural effusion with associated compressive atelectasis. 3. There is an umbilical hernia containing fluid and fat and fluid containing hernia superior and to the left of the umbilicus. This hernia also contains a portion of the transverse colon. 4. Nonacute findings include changes related to chronic liver disease including recanalized paraumbilical vein and bilateral gynecomastia. 5. Other nonacute findings include cholelithiasis and moderate atherosclerotic disease. Has Hepatitis C. LFT stable. - Mild colonic ileus. Lactulose. (+) BM. Tolerate TF, seems distention is more from ascites. Having good bowel movements. - Large ventral hernia, smaller umbilical hernia. Stable. - Anemia, normocytic. He does have hx UGIB in 2014 r/t portal hypertensive gastropathy, but no active bleeding at this time. S/P 1 unit PRBC. - Thrombocytopenia. Hematology following, likely related to abx/sepsis. Improving Plt 148. - Hx of hep-C- quant 22,500 - Right DVT on US, on heparin - Resp. failure, pleural effusin, PNA, on CPAP, bilateral chest tubes - Atrial fibrillation with RVR. On amiodarone gtt,off cardizem gtt- on po cardizem. Rate 50's Cardiology following. - Acute renal failure. Nephrology following. Bumex gtt PLAN - TF as tolerated - Cont. Lactulose - Cont. Xifaxan - Cont. Albumin - Diuretics per renal, on Bumex gtt - Monitor HH, Plt - Transfuse as necessary - Supportive care - Further recommendations to follow based on results of above. - Patient seen and examined by Dr. Mix and myself and this note is written on his behalf. (Megan Orellana) Physician Comments Seen and examined, plan as above, further recommendations to follow. (Cece Cisneros MD) Megan Orellana May 07, 2017 08:30 Cece Cisneros MD May 07, 2017 10:52
[2017-05-07] MEDS: MAGNESIUM OXIDE 400 MG TAB PO SCH ×2 (09:00→21:13)
[2017-05-07] MEDS: POTASSIUM CHLORIDE 20 MEQ PWD PACKET NG SCH ×2 (09:00→21:00)
[2017-05-07] MEDS: LACTULOSE SYRUP 20 GM/30 ML CUP PO SCH (09:00)
[2017-05-07] MEDS: ARTIFICIAL TEARS OPTH OINT 3.5 APPLIC/3.5 GM TUBO EACH EYE SCH ×2 (09:00→21:13)
--- NOTE | 2017-05-07 09:00 | HHI.IDPN ---
Subjective Subjective Remarks [employer] COVERAGE Mr. Forrest is a 56 year old male patient with cirrhosis, osteoarthritis, atrial fibrillation, hypertension, GERD, sleep apnea, central pontine myelinolysis, EtOH abuse and ascites requiring paracentesis who presented to [facility] ED on 04/20/2017 for evaluation of decreased oral intake and abdominal distention with ascites. Patient had associated left abdominal pain near hernia site. No history of vomiting, having diarrhea (dark in color) for 1 day. Patient's significant other reported he had been declining for 2 weeks and had not been eating or drinking for 2-3 days. Upon presentation to the ED, the patient was tachycardic. An EKG showed atrial fibrillation with RVR; patient is not on anticoagulation therapy. Patient was evaluated in the ED and the suspicion for sepsis. His WBC count was 15.2, platelets 256. His sodium was 133, lactic acid 2.8 and creatinine 1.25. Blood culture drawn on admission is now positive for methicillin sensitive staph aureus as documented by verigene testing. Chest x-ray shows left lower lobe consolidation and pleural effusion. A CT abdomen and pelvis showed moderate volume free fluid associated with peritoneal thickening as well as possible loculations. The patient was started on IV antibiotics and fluids per sepsis protocol. Patient's heart rate remained elevated, maintaining blood pressure, on Cardizem drip. Patient was admitted to CICU for further evaluation and medical management. A CT-guided abdominal ultrasound with paracentesis was completed on 04/21/2017 for ascites with a total of 650 cc of clear, yellow fluid [place]. [place] [address]; peritoneal RBC elevated at 411. Cytology pending. Cardiology consulted for A. fib with RVR on 04/21/2017. GI is following. Per EMR, patient has a history of GI bleed in 2015 secondary to portal hypertension gastropathy; patient had an EGD at that time. Hepatitis C quantitative and genotype pending. Notes reviewed Extubated 05/05 pm, reintubated again Temps ok BP ok, not on pressors UO has been decreasing Creatinine rising On BUmex drip Last CXR with worsening infiltrates [address] Monitor shows sinus, bradycardic Off cordarone drip No new (+) BC BC and peritoneal fluid with MSSA Pleural fluid clx remain negative Last sputum 05/03 normal resp tiana Antibiotics Cefepime IV Lines PIV Past Medical History Reviewed Allergies: Coded Allergies: No Known Allergies (Unverified , 12/06/16) Objective . Vital Signs Date Time Temp Pulse Resp B/P Pulse Ox O2 Delivery O2 Flow Rate FiO2 05/07/17 07:00 100 Mechanical Ventilator 45 05/07/17 06:00 52 05/07/17 04:24 99 40 05/07/17 04:00 97.5 50 16 124/57 100 05/07/17 04:00 40 05/07/17 04:00 50 05/07/17 02:00 54 05/07/17 00:00 54 05/07/17 00:00 97.7 54 16 133/59 100 05/07/17 00:00 45 05/06/17 23:40 100 45 05/06/17 22:00 55 05/06/17 20:16 98 45 05/06/17 20:00 45 05/06/17 20:00 97.8 59 17 124/57 100 05/06/17 20:00 59 05/06/17 19:00 100 Mechanical Ventilator 45 05/06/17 18:00 54 05/06/17 17:53 100 45 05/06/17 16:00 62 05/06/17 16:00 45 05/06/17 16:00 98.7 62 20 138/63 100 05/06/17 15:30 61 05/06/17 14:00 61 05/06/17 12:00 45 05/06/17 12:00 97.7 58 22 129/64 100 05/06/17 12:00 59 05/06/17 10:00 100 45 05/06/17 10:00 56 05/06/17 05/06/17 05/07/17 15:00 23:00 07:00 Intake Total 981 ml 978 ml 1360 ml Output Total 1120 ml 720 ml 740 ml Balance -139 ml 258 ml 620 ml IV Total 281 ml 288 ml 536 ml Tube Feeding 10 ml 124 ml Albumin 500 ml 500 ml 500 ml Other 200 ml 180 ml 200 ml Output Urine Total 140 ml 50 ml 60 ml Stool Total 150 ml 200 ml 100 ml Chest Tube Drainage Total 830 ml 470 ml 580 ml . Laboratory Tests Test 05/05/17 05/06/17 05/07/17 19:17 10:24 06:17 Hemoglobin 8.9 GM/DL 8.6 GM/DL 8.5 GM/DL Hematocrit 26.8 % 26.5 % 25.8 % White Blood Count 9.5 TH/MM3 6.3 TH/MM3 Red Blood Count 3.08 MIL/MM3 2.96 MIL/MM3 Mean Corpuscular Volume 86.1 FL 87.2 FL Mean Corpuscular Hemoglobin 27.8 PG 28.7 PG Mean Corpuscular Hemoglobin 32.2 % 32.9 % Concent Red Cell Distribution Width 18.9 % 19.9 % Platelet Count 134 TH/MM3 148 TH/MM3 Mean Platelet Volume 8.9 FL 9.3 FL Neutrophils (%) (Auto) 86.8 % Lymphocytes (%) (Auto) 4.6 % Monocytes (%) (Auto) 7.3 % Eosinophils (%) (Auto) 0.6 % Basophils (%) (Auto) 0.7 % Neutrophils # (Auto) 8.3 TH/MM3 Lymphocytes # (Auto) 0.4 TH/MM3 Monocytes # (Auto) 0.7 TH/MM3 Eosinophils # (Auto) 0.1 TH/MM3 Basophils # (Auto) 0.1 TH/MM3 CBC Comment DIFF FINAL Differential Comment Laboratory Tests Test 05/06/17 05/07/17 10:24 06:17 Sodium Level 138 MEQ/L 138 MEQ/L Potassium Level 4.6 MEQ/L 4.5 MEQ/L Chloride Level 106 MEQ/L 106 MEQ/L Carbon Dioxide Level 18.2 MEQ/L 18.8 MEQ/L Anion Gap 14 MEQ/L 13 MEQ/L Blood Urea Nitrogen 69 MG/DL 74 MG/DL Creatinine 3.41 MG/DL 3.77 MG/DL Estimat Glomerular Filtration 19 ML/MIN 17 ML/MIN Rate Random Glucose 96 MG/DL 95 MG/DL Calcium Level 8.8 MG/DL 8.6 MG/DL Total Bilirubin 1.3 MG/DL 1.1 MG/DL Aspartate Amino Transf 21 U/L 11 U/L (AST/SGOT) Alanine Aminotransferase LESS THAN 6 U/L LESS THAN 6 U/L (ALT/SGPT) Alkaline Phosphatase 46 U/L 45 U/L Total Protein 7.0 GM/DL 7.0 GM/DL Albumin 3.7 GM/DL 3.5 GM/DL Imaging Chest X-Ray 05/06/17 0000 Signed Impressions: Service Date/Time: Saturday, May 06, 2017 02:51 - CONCLUSION: 1. Right- sided [place] loop thoracostomy tubes are stable in position. Worsening left-sided effusion and persistent right-sided effusion. 2. Bilateral airspace disease, right greater than left. These appear worse when compared to the prior exam. 3. Interval removal of the nasogastric tube. Endotracheal tube remains appropriately positioned above the adelita. Antonio Lopez MD Chest X-Ray 05/05/17 06 Signed Impressions: Service Date/Time: April 04:04 - CONCLUSION: Stable bilateral partially consolidated infiltrates. Kwaku Haro MD Chest X-Ray 05/04/17 06 Signed Impressions: Service Date/Time: Thursday, May 04, 2017 04:40 - CONCLUSION: Stable bilateral infiltrates, right greater than left. Kwaku Haro MD Last Impressions Chest X-Ray 04/30/17 06 Signed Impressions: Service Date/Time: Sunday, April 30, 2017 03:45 - CONCLUSION: 1. Tiny right apical pneumothorax. 2. No pneumothorax on the left. 3. Minimal bilateral airspace disease. Charlie Claudio MD Brain MRI 04/29/17 0000 Signed Impressions: Service Date/Time: Saturday, April 29, 2017 10:08 - CONCLUSION: 1. No evidence of acute infarct, hemorrhage, mass or edema. 2. No evidence of pontine myelinolysis. 3. 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 Escobar Antony MD Chest Tube Insertion 04/28/17 1555 Signed Impressions: Service Date/Time: April 15:51 - CONCLUSION: Uncomplicated chest tube placement as above. Escobar Antony MD Chest CT 04/28/17 0000 Signed Impressions: Service Date/Time: April 15:51 - CONCLUSION: 1. Bilateral pleural effusions as described. 2. Extensive patchy consolidating infiltrates both lungs. 3. Cardiomegaly. 4. Ascites. Escobar Antony MD Abdomen X-Ray 04/28/17 0000 Signed Impressions: Service Date/Time: April 11:21 - CONCLUSION: Nonspecific bowel gas pattern with some mild gaseous distention of the colon. There is an NG tube in stomach. Srinivasan Ivory MD Upper Extremity Ultrasound 04/23/17 Signed Impressions: Service Date/Time: Sunday, April 23, 2017 10:50 - CONCLUSION: DVT in the right upper extremity seen in the right basilic vein. There is also superficial thrombus in the right cephalic vein. Mushtaq Brown MD Cyst Biopsy Asp-Paracentesis US 04/21/17 Signed Impressions: Service Date/Time: April 11:07 - CONCLUSION: Uncomplicated ultrasound guided paracentesis. Please note that the fluid throughout the abdomen is extremely complex with septations. This can be seen when the fluid has become infected or is complicated by hemorrhage or malignancy. Mushtaq Alexis MD Abdomen/Pelvis CT 04/20/17 Signed Impressions: Service Date/Time: Thursday, April 20, 2017 13:56 - CONCLUSION: 1. Moderate volume free fluid in the abdomen and pelvis with possible associated peritoneal thickening. Thickening of the peritoneal lining can be seen with infection. 2. Large right and moderate size left pleural effusion with associated compressive atelectasis. 3. There is an umbilical hernia containing fluid and fat and fluid containing hernia superior and to the left of the umbilicus. This hernia also contains a portion of the transverse colon. 4. Nonacute findings include changes related to chronic liver disease including recanalized paraumbilical vein and bilateral gynecomastia. 5. Other nonacute findings include cholelithiasis and moderate atherosclerotic disease. Mushtaq Alexis MD Physical Exam GENERAL: Opens eyes, on the vent, NAD SKIN: Dry, decreased turgor, with decreasing overall edema. has dependent erythema lower trunk and saumya thighs HEAD: Atraumatic. Normocephalic. No temporal or scalp tenderness. EYES: Pupils equal round and reactive. Extraocular motions intact. No scleral icterus. No injection or drainage. ENT: Nose without bleeding, purulent drainage. Orally intubated NECK: Trachea midline. Supple, nontender, no meningeal signs. CARDIOVASCULAR: Regular S1S2, no rub RESPIRATORY: Bilateral rhinchi, bilateral CTs with serous drainage GASTROINTESTINAL: Abdomen tensely distended, tender on palpation, tympanitic on percussion. At site of prior PEG tube there is a large balloting hernia. MUSCULOSKELETAL: Extremities without clubbing, cyanosis. No embolic lesions. Improving pitting edema NEUROLOGICAL: OPens eyes when stimulated Psych: unable to assess IV line sites with no e.o infection. Assessment & Plan Remarks MSSA sepsis, source, ?endocarditis, ?loculated ascites. Pneumonia ? septic emboli. Not an aspiration risk. ESLD with ascites. S/P paracentesis, fluid exudative, loculated. Peritonitis MSSA. SBP, MSSA Hypotension ? hypoalbuminemia ? sepsis related. - BP better not on pressors Atrial fib with RVR Respiratory failure, reintubated; - fluid overload, b/l effusions sp bl CT - no e/o empyema - worsening infiltrates likely due to worsening renal function Acute renal failure: diuretics, antibiotics ? Acute thrombocytopenia: ? ESLD, ? HIT, ? sepsis. PLAN Continue Cefepime IV for now. Renal evaluating patient - may need HD this weekend Sputum cultures with normal resp tiana. Negative Cdiff PCR Doppler LE negative. Follow cultures Monitor progress Monitor Nichole Padilla MD May 07, 2017 09:00
[2017-05-07] MEDS: RIFAXIMIN 550 MG TAB PO SCH ×2 (09:09→21:14)
[2017-05-07] MEDS: PANTOPRAZOLE SODIUM 40 MG VIAL IV PUSH SCH (09:13)
--- NOTE | 2017-05-07 11:55 | HHI.NPPN ---
Subjective General Problems: Anemia Renal Failure: Acute Additional Remarks Remains intubated, minimal UOP with bumex drip Review of Systems General General Remarks unable to evaluate Objective Data Data 05/06/17 05/07/17 19:00 07:00 Intake Total 981 ml 2338 ml Output Total 1120 ml 1460 ml Balance -139 ml 878 ml IV Total 281 ml 824 ml Tube Feeding 134 ml Albumin 500 ml 1000 ml Other 200 ml 380 ml Output Urine Total 140 ml 110 ml Stool Total 150 ml 300 ml Chest Tube Drainage Total 830 ml 1050 ml Vital Signs Date Time Temp Pulse Resp B/P Pulse Ox O2 Delivery O2 Flow Rate FiO2 05/07/17 10:00 51 05/07/17 09:37 99 40 05/07/17 08:00 45 05/07/17 08:00 96.1 46 18 136/62 98 05/07/17 08:00 46 05/07/17 07:00 100 Mechanical Ventilator 45 05/07/17 06:00 52 05/07/17 04:24 99 40 05/07/17 04:00 97.5 50 16 124/57 100 05/07/17 04:00 40 05/07/17 04:00 50 05/07/17 02:00 54 05/07/17 00:00 54 05/07/17 00:00 97.7 54 16 133/59 100 05/07/17 00:00 45 05/06/17 23:40 100 45 05/06/17 22:00 55 05/06/17 20:16 98 45 05/06/17 20:00 45 05/06/17 20:00 97.8 59 17 124/57 100 05/06/17 20:00 59 05/06/17 19:00 100 Mechanical Ventilator 45 05/06/17 18:00 54 05/06/17 17:53 100 45 05/06/17 16:00 62 05/06/17 16:00 45 05/06/17 16:00 98.7 62 20 138/63 100 05/06/17 15:30 61 05/06/17 14:00 61 05/06/17 12:00 45 05/06/17 12:00 97.7 58 22 129/64 100 05/06/17 12:00 59 -: 05/07/17 0617 05/07/17 0617 Tubes & Lines: [place] Tubes & Lines Comment TLC, rectal tube, chest tube bilaterally Drip Comment heparin, amiodarone, Cardizem Physical Exam General Appearance: No Acute Distress, Malnourished Throat Throat Exam: Oral Mucosa [place] & Moist Pulmonary Resp Exam: Breath Sounds Equal, Crackles, Rhonchi, Sputum Cardiology CV Exam: Good Perfusion, Irregular, Tachycardia Gastrointestinal/Abdomen GI Exam: Non-Tender, Bowel Sounds Present, Distended Musculoskeletal MS Exam: Joints Intact, Normal Tone, Unable to Ambulate Integumentary Skin Exam: Warm, Dry Extremeties Extremities Exam: Moderate Edema, Pitting Edema, Dependent Edema Neurologic Neuro Exam: Sedated VTE Prophylaxis Device: SCDs Assessment/Plan Assessment Summary: HILARY/Acute Renal Failure, Fluid/Volume Overload, Hypertension Problem List: (1) Acute renal failure Plan: In a patient with normal renal function on arrival HILARY may be due to hypoperfusion injury with possible ATN Minimal UOP on bumex drip. Poor candidate for dialysis given cirrhosis and poor long-term prognosis. Discussed with critical care - poor overall condition. Follow goals of care with family. No absolute indication for dialysis at this time, K+ 4.5, HCO3 18. Will continue to closely monitor with ICU team. Depending on goals of care, may consider for HD. monitor renal function, avoid IVF and nephrotoxic medications (2) Bacterial peritonitis Plan: ID has evaluated MSSA, on cefepime , vancomycin was stopped monitor clinically he is on tube feeding through OG tube (3) Atrial fibrillation with RVR Plan: with RVR, rate is better continue to require amiodarone, Cardizem gtts,, as well as heparin for anticoagulation blood pressure is acceptable monitor (4) HTN (hypertension) Plan: continue medications as ordered follow blood pressure (5) Anemia Plan: with coagulopathy, possibly related to liver disease he is Hemoccult positive transfused 05/05, Hb is better Spencer Hale MD May 07, 2017 11:55
--- NOTE | 2017-05-07 11:58 | HHI.CCPN ---
Subjective Remarks/Hospital Course History of Present Illness Mr. Forrest is a 56 year old male patient with cirrhosis secondary to hepatitis C and alcohol dependence, atrial fibrillation, hypertension, GERD, sleep apnea, history of central pontine myelinolysis,ascites requiring paracentesis who admitted to [facility] with on 04/20/2017 for evaluation of decreased oral intake, probable sepsis and ascites. An EKG on admission showed atrial fibrillation with RVR. His initial WBC count was 15K. Infectious disease was consulted and patient was placed on broad-spectrum antibiotic. Recently underwent paracentesis by IR on 04/21/17 with the fluid was described as loculated and septated. Fluid culture grew MSSA. 3 out of 4 blood cultures on 04/20/17 growing MSSA. For Atrial fibrillation with RVR patient was placed on Cardizem drip. Paracentesis on 04/21/2017 650 ccfluid removed. Peritoneal WBC - 54462; peritoneal RBC - 411. Patient had been receiving Ancef and vancomycin per ID recommendation Critical care medicine was consulted today a.m. as patient was increasingly short of breath and dyspneic and hypoxemic. Patient was placed on BiPAP 15/7 at 80% oxygen. I immediately evaluated the patient he appeared to be in moderate to severe distress. Bedside ultrasound showed large right-sided pleural effusion. I gave him 25 g of albumin and performed thoracentesis with 2 L of fluid removal. Chest x-ray postprocedure showed significant clearing of the right lung field but increased edema involving the left lung field. It is possible that patient has developed reexpansion pulmonary edema, I gave him 2 mg of IV bumex. Repeat Chest x-ray continues to show bilateral pulmonary edema , I have signed out this case to Dr. Bob who will most likely intubated the patient. Subjective subjective: 04/26: The patient required intubation, due to hypoxemic respiratory failure last a.m.. Patient still requires has high oxygen and ventilatory requirements,PEEP increased to 10. Aggressive diuresis continues. The patient converted to normal sinus rhythm yesterday afternoon amiodarone has been discontinued Cardizem has been discontinued. The patient continues on metoprolol twice a day. 04/27: Decreased urinary output overnight. Bumex 1 mg/hour instituted. Plan for repeat paracentesis procedure. The patient remains normal sinus rhythm. 04/28: Afebrile. Paracentesis today only 300 cc. Possibly slightly loculated. Weaning back loop diuretic in light of worsening renal function. Plan for right-sided pigtail catheter for recurrent pleural effusion. In attempt to wean off ventilator. Tolerating tube feeding at 10 cc an hour 04/29: Patient had a IR placed 10 Nigerian chest tube on the right side with 1.7 L drained. Urine output 3.3 L in 24 hours. Remains severely encephalopathic. Bedside US shows moderate L effusion 81/2: Remains intubated. Developed Afib with RVR, rate 150-160. Cardizem gtt after 20 mg IVP with no improvement. Metoprolol 5 mg IVPx1. Start Amiodarone if not improved (already on full anticoagulation. Chest x-ray today shows bilateral pigtail chest tubes in place and tiny right apical pneumothorax (R pigtail was placed by radiology). Patient remains encephalopathy despite being off sedation 05/01: Remains in normal sinus rhythm, rate controlled, on IV Cardizem and IV amiodarone. Patient remains encephalopathy, but more spontaneous eye opening. Lovenox change to IV heparin due to worsening renal failure. Also IV Bumex held due to increasing creatinine 05/02: Remains intubated, off sedation. More awake. Weakly following x4. UO 800 ml in 24 hours. Give 2 mg IV Bumex. Change Amio to PO 05/03: Continues to spike high fever 102.5. CXR despite bilateral chest tube and 1.6L output in 24 hours shows R> L consolidation/effusion. Creat worsening. Will hold Diuretics. Send sputum and blood cultures, give single dose of vanc and cefepime. D/W Dr. Gonzalez. Hb 6.9, will give 1U PRBC. Platelet count steadily improving 94 today 05/04: Continues to spike fever 101.5. Not tolerating CPAP. Back to Afib with RVR. Chest tube output 1.3L combined. Creat 2.5, UO 580 ml in 24 hours. Consult nephrology. Doubt successful vent weaning without trach. Will also consult nephrology 05/05: Remains on Cardizem and amiodarone infusions for atrial fibrillation, remains also on IV heparin. Hemoglobin has dropped to 7.1 I will give 1 unit PRBC transfusion. Chest x-ray unchanged. Bilateral chest tubes with 1.5 mg in 24 hours. Creatinine worsening to 2.8 urine output is 900 mL in 24 hours. Nephrology consulted and they have started Bumex 2 mg IV every 12 05/06: Extubated yesterday but had to be reintubated due to lack of airway protection and hypoxemia around 2 AM today. Creatinine is worsening 3.4 today urine output decreasing 750 mL in 24 hours. Discussed with nephrology Dr. Garcia- recommends Bumex gtt 2 mg per hour for 24 hours, and start dialysis if significant fluid cannot be achieved. Chest x-ray shows persistent bilateral effusions despite chest tube and scheduled Bumex. Overall prognosis is poor, family arriving to [facility] next week. Neurologically patient is following commands with bilateral upper extremities Subjective 05/07 Creatinine worsening and worsening oliguria despite Bumex drip with urine output only 250 mLs last 24 hour. Afebrile. In sinus rhythm rate in 50s. Discontinuing amiodarone drip. Moves hands and toes bilaterally to command Objective Vital Signs Date Time Temp Pulse Resp B/P Pulse Ox O2 Delivery O2 Flow Rate FiO2 05/07/17 10:00 51 05/07/17 09:37 99 40 05/07/17 08:00 96.1 18 136/62 05/07/17 07:00 Mechanical Ventilator 05/05/17 20:22 15.00 Intake and Output 05/06/17 05/06/17 05/07/17 08:00 16:00 00:00 Intake Total 999 ml 981 ml 978 ml Output Total 1300 ml 1120 ml 720 ml Balance -301 ml -139 ml 258 ml Result Diagram: 05/07/17 0605/07/17 0617 Imaging Last Impressions Chest X-Ray 04/27/17 0600 Signed Impressions: Service Date/Time: Thursday, April 27, 2017 04:29 - CONCLUSION: Overall stable appearance of the chest. Watson Bermeo MD Upper Extremity Ultrasound 04/23/17 0000 Signed Impressions: Service Date/Time: Sunday, April 23, 2017 10:50 - CONCLUSION: DVT in the right upper extremity seen in the right basilic vein. There is also superficial thrombus in the right cephalic vein. Mushtaq Brown MD Cyst Biopsy Asp-Paracentesis US 04/21/17 0000 Signed Impressions: Service Date/Time: April 11:07 - CONCLUSION: Uncomplicated ultrasound guided paracentesis. Please note that the fluid throughout the abdomen is extremely complex with septations. This can be seen when the fluid has become infected or is complicated by hemorrhage or malignancy. Mushtaq Alexis MD Abdomen/Pelvis CT 04/20/17 0000 Signed Impressions: Service Date/Time: Thursday, April 20, 2017 13:56 - CONCLUSION: 1. Moderate volume free fluid in the abdomen and pelvis with possible associated peritoneal thickening. Thickening of the peritoneal lining can be seen with infection. 2. Large right and moderate size left pleural effusion with associated compressive atelectasis. 3. There is an umbilical hernia containing fluid and fat and fluid containing hernia superior and to the left of the umbilicus. This hernia also contains a portion of the transverse colon. 4. Nonacute findings include changes related to chronic liver disease including recanalized paraumbilical vein and bilateral gynecomastia. 5. Other nonacute findings include cholelithiasis and moderate atherosclerotic disease. Mushtaq Alexis MD Objective Remarks Drips: Fentanyl 200 g per hour Amiodarone off Heparin Bumex 2 mg per hour GENERAL: 57-year-old critically ill male, intubated not on sedation SKIN: Warm/dry. No rash; well perfused. Ecchymosis bilateral upper and lower extremities HEAD: Atraumatic. Normocephalic. EYES: Pupils equal and round about 3 mm bilaterally and reactive. No scleral icterus. ENT: No nasal bleeding or discharge. Orotracheally intubated NECK: Trachea midline. No JVD. CARDIOVASCULAR: Sinus rhythm, rate in the 60s on the monitor S1, S2. No S4. No rub. Systolic murmur LSB 2/6 RESPIRATORY: Air entry diminished bilateral lower lung tate. Few basilar crackles. Bilateral chest tubes in place with no air leak, serous output Right 1030, Left 850 output lat 24 hours. GASTROINTESTINAL: Abdomen soft, distended from ascites, large ventral hernia. Hypoactive bowel sounds. : Positive scrotal edema. Palmer catheter in place MUSCULOSKELETAL: 1+ edema bilateral upper and lower extremity/anasarca NEUROLOGICAL: Intubated. Spontaneous eye opening today. Follows commands x4 but very weak moving only toes and hands. 3 out of 5 left biceps Procedures Paracentesis Thoracentesis Right pigtail chest tube placement Date of Insertion: Apr 25, 2017 A/P Assessment and Plan Neuro/Psych Metabolic encephalopathy Hx of ETOH abuse History of central pontine myelinolysis with quadriparesis --Monitor mental status closely, metabolic encephalopathy secondary to sepsis --Spontaneous eye opening, following commands x4 very weakly --On fentanyl gtt for patient comfort. Add oxycodone 5 every 6 --MRI brain 04/29 shows resolution of previous osmotic demyelination syndrome -On rifaximin. Last ammonia level 06/06 was normal at 28 CVS Pulmonary edema ? Reexpansion pulmonary edema versus ARDS Atrial fibrillation with RVR -- IV heparin. Previously on Cardizem infusion for Afib rate control. Now rate in 50s on po cardizem. Discontinued amiodarone drip. Continue PO Cardizem 60 mg PO q6hr. DC Cardizem gtt 05/06 -- Holding Amio 200 mg daily 05/02. Given Digoxin 0.5 mg x1 -- Change metoprolol 25 q8 with hold orders -- 2d Echo no evidence of endocarditis, normal ejection fraction 60%. Trace MR. Moderate TR. -- IV albumin 25 g every 8 hours. Bumex drip 2 mg per hour Pulmonary Acute hypoxemic respiratory failure Bilateral pigtail chest tubes for large pleural effusions Probable HCAP - Status post right thoracentesis and 2 L fluid removed with IV albumin infusing 04/25 - Patient developed reexpansion pulmonary edema after thoracentesis - Intubated 04/25 ACV ventilation 18/500/10/40. extubated 05/05, but reintubated am due to poor airway protection, weak cough, hypoxemia. - s/p R pigtail CT 04/28 placed by IR, tiny R apical pneumothorax-now resolved - s/p left chest tube placement 04/29 . -Chest tube output remains high, will remain. - Ventilator bundle. - DuoNeb every 6 hours with albuterol aerosols every 2 when necessary - Previous tracheostomy status post decannulation 2015 - Will need trach again due to anticipated prolonged vent support, if family want to continue aggressive care - Palliative care had been discussing with family-they are expected to be here next week - Once family has decided about tracheostomy, consult general surgery due to previous trach GI Spontaneous bacterial peritonitis with MSSA Cirrhotic liver disease secondary to ETOH abuse and Hepatitis C genotype IIIa Protein calorie malnutrition/moderate Ascitesmoderate -- Prior U/S guided paracentesis 04/21/17, fluid was loculated and septated -- Exudative fluid growing MSSA indicating peritonitis -- Antibiotics per ID -- Status post paracentesis 04/28 300 cc removed. Continues to drain from site -- Resume Jevity 1.5 goal 60 cc an hour per nutrition recommendations. 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 May need general surgery for this also due to large ventral hernia. Renal Acute kidney injury -- Palmer catheter in place to monitor I/Os in critically ill patient --Creatinine continues to increase and oliguric despite Bumex drip. Discussed with nephrology, Dr. Hale. Dialysis is not emergent and he does not feel patient is a good candidate for hemodialysis due to cirrhosis multiorgan dysfunction and overall prognosis. Will discuss with family regarding goals of care and potentially pursue dialysis tomorrow if necessary --Patient has been followed typically by Dr. Jay -- Chest x-ray shows persistent bilateral effusions despite chest tube and scheduled Bumex Endocrine/FEN: Hypokalemia (resolved) Hypophosphatemia (resolved) Hypo-magnesium -- Electrolyte replacement protocol as needed Heme Anemia Coagulopathy Thrombocytopenia Right upper extremity superficial thrombosis basilic/cephalic veins -- Anemia, and coagulopathy most likely secondary to chronic liver disease / ETOH use, severe sepsis and consumptive from thrombophlebitis -- HIT negative -- Transfuse 1U PRBC 05/05. Subsequent hemoglobin stable stool for Hemoccult + ve. Platelet count continues to improve with likely consumptive secondary to DVT /sepsis -- Heparin gtt ID: MSSA bacteremia Spontaneous bacterial peritonitis -- Pertinent cultures: - Blood 04/20: 3/4 bottles MSSA - Ascitic fluid 04/21: MSSA - Cultures from 05/02 neg to date Antibiotics per ID. continue renally dosed cefepime 05/03 #5. Prophylaxis: GI -pantoprazole DVT - SCDs; and heparin gtt Discussed with bedside CC RN Level III Domitila Larios MD May 07, 2017 11:57
--- NOTE | 2017-05-07 14:52 | EKG ---
Date Performed: 05/07/2017 Time Performed: 08:13:06 PTAGE: 57 years EKG: MODERATE NONSPECIFIC T-WAVE CHANGE LOW QRS VOLTAGE IN EXTREMITY LEADS SINUS BRADYCARDIA Com pared to previous tracing, rhythm has changed from atrial fibrillation with rapid ventricular respons e to sinus bradycardia. T-wave changes persist. ABNORMAL ECG PREVIOUS TRACING : 04/21/2017 04.53 DOCTOR: Jonh Carrera Interpretating Date/Time 05/07/2017 14:52:07
[2017-05-07] MEDS: HEPARIN-D5W 25,000 U/250 ML 250 ML IV SCH (17:09)
[2017-05-08] VITALS (18 sets, daily range): BP systolic 127–150; BP diastolic 61–107; PULSE 56–93; RESP 18–26; TEMP 98.7–99.8; O2SAT 99–100
[2017-05-08] MEDS: ALBUMIN HUMAN 5% 25 GM/500 ML BOTTLE IV SCH ×3 (01:55→16:52)
[2017-05-08] MEDS: fentaNYL DRIP 250 ML IV SCH ×2 (05:10→18:43)
[2017-05-08] MEDS: DILTIAZEM HCL 60 MG TAB PO SCH ×4 (05:10→16:53)
[2017-05-08 05:16] LABS: APTT (PATIENT) 44.1 SEC (24.3-30.1)
[2017-05-08 05:26] LABS: AUTOMATED NEUTROPHIL # 6.3 TH/MM3 (1.8-7.7); BASOPHIL # 0.2 TH/MM3 (0-0.2); BASOPHIL % 2.1 % (0.0-2.0); EOSINOPHIL # 0.1 TH/MM3 (0-0.4); EOSINOPHIL % 1.3 % (0.0-4.0); HEMATOCRIT 25.7 % (39.0-51.0); HEMO FLAGS DIFF FINAL; LYMPH % 4.9 % (9.0-44.0); LYMPHOCYTE # 0.4 TH/MM3 (1.0-4.8); MEAN CELL VOLUME 88.3 FL (80.0-100.0); MEAN CORPUSCULAR HGB CONC 31.8 % (32.0-36.0); MONO % 9.7 % (0.0-8.0); PLATELET COUNT 197 TH/MM3 (150-450); RED BLOOD COUNT 2.92 MIL/MM3 (4.50-5.90); RED CELL DISTRIBUTION WIDTH 21.7 % (11.6-17.2); WHITE BLOOD COUNT 7.7 TH/MM3 (4.0-11.0)
[2017-05-08 06:04] LABS: ALKALINE PHOSPHATASE 44 U/L (45-117); ALT (GPT) LESS THAN 6 U/L (12-78); ANION GAP 13 MEQ/L (5-15); AST (GOT) 8 U/L (15-37); BICARBONATE 14.4 MEQ/L (21.0-32.0); BLOOD UREA NITROGEN 78 MG/DL (7-18); CHLORIDE 107 MEQ/L (98-107); GLOMERULAR FILTRATION RATE 14 ML/MIN (>89); MAGNESIUM 2.2 MG/DL (1.5-2.5); POTASSIUM 5.4 MEQ/L (3.5-5.1); SODIUM (NA) 134 MEQ/L (136-145); TOTAL BILIRUBIN ADULT 0.8 MG/DL (0.2-1.0)
[2017-05-08] MEDS ORDERED: INSULIN HUMAN REGULAR 1,000 UNITS/10 ML VIAL IV PUSH ONE (06:30)
[2017-05-08] MEDS ORDERED: DEXTROSE 50% IN WATER 50 ML VIAL(D50) IV PUSH ONE (06:30)
[2017-05-08] MEDS ORDERED: SODIUM POLYSTYRENE SULFONATE SUSP 15 GM/60 ML CUP OG-TUBE ONE (06:30)
[2017-05-08] MEDS ORDERED: DEXTROSE 50% IN WATER 50 ML SYRINGE ONE (06:56)
[2017-05-08] MEDS ORDERED: SODIUM BICARBONATE 8.4% SOLN 50 MEQ/50 ML VIAL IV PUSH ONE (07:00)
[2017-05-08] MEDS: CHLORHEXIDINE 0.12% (ORAL KIT) 15 ML CUP MT SCH ×2 (07:02→20:37)
[2017-05-08] MEDS: ARTIFICIAL TEARS OPTH OINT 3.5 APPLIC/3.5 GM TUBO EACH EYE SCH ×2 (07:02→20:38)
[2017-05-08] MEDS ORDERED: DEXTROSE 50% IN WATER 50 ML SYRINGE IV PUSH ONE (07:15)
[2017-05-08] MEDS: HEPARIN-D5W 25,000 U/250 ML 250 ML IV SCH (07:18)
[2017-05-08] MEDS: LACTULOSE SYRUP 20 GM/30 ML CUP PO SCH (07:55)
[2017-05-08] MEDS: PANTOPRAZOLE SODIUM 40 MG VIAL IV PUSH SCH (07:55)
[2017-05-08] MEDS: RIFAXIMIN 550 MG TAB PO SCH ×2 (07:56→20:38)
[2017-05-08] MEDS: MAGNESIUM OXIDE 400 MG TAB PO SCH ×2 (07:56→20:38)
[2017-05-08] MEDS: METOPROLOL TARTRATE 50 MG TAB PO SCH ×3 (09:00→17:00)
[2017-05-08] MEDS: POTASSIUM CHLORIDE 20 MEQ PWD PACKET NG SCH ×2 (09:00→20:38)
[2017-05-08] MEDS: CEFEPIME INJ 2,000 MG in SODIUM CHLORIDE 0.9% INJ 100 ML IV SCH ×3 (13:09)
[2017-05-08 15:05] LABS: BICARBONATE 19.1 MEQ/L (21.0-32.0); POTASSIUM 5.3 MEQ/L (3.5-5.1)
--- NOTE | 2017-05-08 15:42 | HHI.NPPN ---
Subjective General Problems: Anemia Renal Failure: Acute Additional Remarks Remains intubated, 250ccl UOP with bumex drip Review of Systems General General Remarks unable to evaluate Objective Data Data Vital Signs Date Time Temp Pulse Resp B/P (MAP) Pulse Ox O2 Delivery O2 Flow Rate FiO2 05/08/17 14:10 20 05/08/17 14:00 59 05/08/17 12:00 92 05/08/17 12:00 99.0 93 20 142/65 (90) 100 05/08/17 12:00 40 05/08/17 11:30 100 40 05/08/17 10:00 92 05/08/17 08:00 93 05/08/17 08:00 99.0 93 20 142/65 (90) 100 05/08/17 08:00 40 05/08/17 07:13 100 40 05/08/17 06:00 60 05/08/17 04:47 100 45 05/08/17 04:00 98.7 63 20 150/65 (93) 100 05/08/17 04:00 40 05/08/17 04:00 63 05/08/17 02:00 66 05/08/17 00:30 99 40 05/08/17 00:00 64 05/08/17 00:00 40 05/08/17 00:00 99.0 64 18 127/107 (114) 100 05/07/17 22:00 63 05/07/17 20:43 99 40 05/07/17 20:00 40 05/07/17 20:00 99.1 66 22 165/91 (115) 98 05/07/17 20:00 66 05/07/17 18:00 58 05/07/17 16:00 57 05/07/17 16:00 45 05/07/17 16:00 97.3 57 19 148/65 (92) 98 -: 05/08/17 0437 05/08/17 1355 Tubes & Lines: Plamer Tubes & Lines Comment TLC, rectal tube, chest tube bilaterally Drip Comment heparin, amiodarone, Cardizem Physical Exam General Appearance: No Acute Distress, Malnourished Throat Throat Exam: Oral Mucosa Shaft & Moist Pulmonary Resp Exam: Breath Sounds Equal, Crackles, Rhonchi, Sputum Cardiology CV Exam: Good Perfusion, Irregular, Tachycardia Gastrointestinal/Abdomen GI Exam: Non-Tender, Bowel Sounds Present, Distended Musculoskeletal MS Exam: Joints Intact, Normal Tone, Unable to Ambulate Integumentary Skin Exam: Warm, Dry Extremeties Extremities Exam: Moderate Edema, Pitting Edema, Dependent Edema Neurologic Neuro Exam: Sedated VTE Prophylaxis Device: SCDs Assessment/Plan Assessment Summary: HILARY/Acute Renal Failure, Fluid/Volume Overload, Hypertension Problem List: (1) Acute renal failure ICD Codes: N17.9 - Acute kidney failure, unspecified Status: Acute Plan: In a patient with normal renal function on arrival HILARY may be due to hypoperfusion injury with possible ATN Minimal UOP on bumex drip - 250cc/ 24 hours. Poor candidate for dialysis given cirrhosis and poor long-term prognosis. Discussed with critical care - poor overall condition. No absolute indication for dialysis at this time, K+ 5.2, HCO3 19. Will continue to closely monitor with ICU team. Family to arrive tomorrow and help determine goals of care. Given anuric state, may need to consider for dialysis Tuesday if goals are for continued aggressive care. Continue medical management of potassium as need for now. (2) Bacterial peritonitis ICD Codes: K65.9 - Peritonitis, unspecified Status: Acute Plan: ID has evaluated MSSA, on cefepime , vancomycin was stopped monitor clinically he is on tube feeding through OG tube (3) Atrial fibrillation with RVR ICD Codes: I48.91 - Atrial fibrillation with rapid ventricular response Status: Acute Plan: with RVR, rate is better continue to require amiodarone, Cardizem gtts,, as well as heparin for anticoagulation blood pressure is acceptable monitor (4) HTN (hypertension) ICD Codes: I10 - Essential (primary) hypertension Status: Chronic Plan: continue medications as ordered follow blood pressure (5) Anemia ICD Codes: D64.9 - Anemia, unspecified Status: Acute Plan: with coagulopathy, possibly related to liver disease he is Hemoccult positive transfused 05/05, Hb is better Problem Qualifiers (1) Acute renal failure: Qualified Codes: N17.0 - Acute kidney failure with tubular necrosis Spencer Hale MD May 08, 2017 15:42
--- NOTE | 2017-05-08 16:28 | HHI.CCPN ---
Subjective Remarks/Hospital Course History of Present Illness Mr. Forrest is a 56 year old male patient with cirrhosis secondary to hepatitis C and alcohol dependence, atrial fibrillation, hypertension, GERD, sleep apnea, history of central pontine myelinolysis,ascites requiring paracentesis who admitted to [facility] with on 04/20/2017 for evaluation of decreased oral intake, probable sepsis and ascites. An EKG on admission showed atrial fibrillation with RVR. His initial WBC count was 15K. Infectious disease was consulted and patient was placed on broad-spectrum antibiotic. Recently underwent paracentesis by IR on 04/21/17 with the fluid was described as loculated and septated. Fluid culture grew MSSA. 3 out of 4 blood cultures on 04/20/17 growing MSSA. For Atrial fibrillation with RVR patient was placed on Cardizem drip. Paracentesis on 04/21/2017 650 ccfluid removed. Peritoneal WBC - 02334; peritoneal RBC - 411. Patient had been receiving Ancef and vancomycin per ID recommendation Critical care medicine was consulted today a.m. as patient was increasingly short of breath and dyspneic and hypoxemic. Patient was placed on BiPAP 15/7 at 80% oxygen. I immediately evaluated the patient he appeared to be in moderate to severe distress. Bedside ultrasound showed large right-sided pleural effusion. I gave him 25 g of albumin and performed thoracentesis with 2 L of fluid removal. Chest x-ray postprocedure showed significant clearing of the right lung field but increased edema involving the left lung field. It is possible that patient has developed reexpansion pulmonary edema, I gave him 2 mg of IV bumex. Repeat Chest x-ray continues to show bilateral pulmonary edema , I have signed out this case to Dr. Bob who will most likely intubated the patient. Subjective subjective: 04/26: The patient required intubation, due to hypoxemic respiratory failure last a.m.. Patient still requires has high oxygen and ventilatory requirements,PEEP increased to 10. Aggressive diuresis continues. The patient converted to normal sinus rhythm yesterday afternoon amiodarone has been discontinued Cardizem has been discontinued. The patient continues on metoprolol twice a day. 04/27: Decreased urinary output overnight. Bumex 1 mg/hour instituted. Plan for repeat paracentesis procedure. The patient remains normal sinus rhythm. 04/28: Afebrile. Paracentesis today only 300 cc. Possibly slightly loculated. Weaning back loop diuretic in light of worsening renal function. Plan for right-sided pigtail catheter for recurrent pleural effusion. In attempt to wean off ventilator. Tolerating tube feeding at 10 cc an hour 04/29: Patient had a IR placed 10 Swazi chest tube on the right side with 1.7 L drained. Urine output 3.3 L in 24 hours. Remains severely encephalopathic. Bedside US shows moderate L effusion 81/2: Remains intubated. Developed Afib with RVR, rate 150-160. Cardizem gtt after 20 mg IVP with no improvement. Metoprolol 5 mg IVPx1. Start Amiodarone if not improved (already on full anticoagulation. Chest x-ray today shows bilateral pigtail chest tubes in place and tiny right apical pneumothorax (R pigtail was placed by radiology). Patient remains encephalopathy despite being off sedation 05/01: Remains in normal sinus rhythm, rate controlled, on IV Cardizem and IV amiodarone. Patient remains encephalopathy, but more spontaneous eye opening. Lovenox change to IV heparin due to worsening renal failure. Also IV Bumex held due to increasing creatinine 05/02: Remains intubated, off sedation. More awake. Weakly following x4. UO 800 ml in 24 hours. Give 2 mg IV Bumex. Change Amio to PO 05/03: Continues to spike high fever 102.5. CXR despite bilateral chest tube and 1.6L output in 24 hours shows R> L consolidation/effusion. Creat worsening. Will hold Diuretics. Send sputum and blood cultures, give single dose of vanc and cefepime. D/W Dr. Gonzalez. Hb 6.9, will give 1U PRBC. Platelet count steadily improving 94 today 05/04: Continues to spike fever 101.5. Not tolerating CPAP. Back to Afib with RVR. Chest tube output 1.3L combined. Creat 2.5, UO 580 ml in 24 hours. Consult nephrology. Doubt successful vent weaning without trach. Will also consult nephrology 05/05: Remains on Cardizem and amiodarone infusions for atrial fibrillation, remains also on IV heparin. Hemoglobin has dropped to 7.1 I will give 1 unit PRBC transfusion. Chest x-ray unchanged. Bilateral chest tubes with 1.5 mg in 24 hours. Creatinine worsening to 2.8 urine output is 900 mL in 24 hours. Nephrology consulted and they have started Bumex 2 mg IV every 12 05/06: Extubated yesterday but had to be reintubated due to lack of airway protection and hypoxemia around 2 AM today. Creatinine is worsening 3.4 today urine output decreasing 750 mL in 24 hours. Discussed with nephrology Dr. Garcia- recommends Bumex gtt 2 mg per hour for 24 hours, and start dialysis if significant fluid cannot be achieved. Chest x-ray shows persistent bilateral effusions despite chest tube and scheduled Bumex. Overall prognosis is poor, family arriving to [facility] next week. Neurologically patient is following commands with bilateral upper extremities 05/07 Creatinine worsening and worsening oliguria despite Bumex drip with urine output only 250 mLs last 24 hour. Afebrile. In sinus rhythm rate in 50s. Discontinuing amiodarone drip. Moves hands and toes bilaterally to command Subjective: 05/08 Oliguric with urine output 125 last 24 hours. Creatinine continues to increase to 4.26. Potassium is 5.4 today. It is inevitable that patient will need dialysis but family is hoping to wait on decision until they are able to meet together tomorrow morning as they are also placing consideration toward hospice. They are aware decision could be made to start dialysis and that it could be stopped at a later point if desired. They are aware potassium could increase and decision may need to be made urgently. Medically treating hyperkalemia and will assess response. Objective Vital Signs Date Time Temp Pulse Resp B/P (MAP) Pulse Ox O2 Delivery O2 Flow Rate FiO2 05/08/17 15:36 99 35 05/08/17 14:10 20 05/08/17 14:00 59 05/08/17 12:00 99.0 142/65 (90) 05/07/17 07:00 Mechanical Ventilator 05/05/17 20:22 15.00 Intake and Output 05/08/17 05/08/17 05/08/17 07:59 15:59 23:59 Intake Total 605 ml 1358 ml Output Total 350 ml 750 ml Balance 255 ml 608 ml Result Diagram: 05/08/17 0437 05/08/17 1355 Imaging Last Impressions Chest X-Ray 04/27/17 0600 Signed Impressions: Service Date/Time: WednesApril 27, 2017 04:29 - CONCLUSION: Overall stable appearance of the chest. Watson Bermeo MD Upper Extremity Ultrasound 04/23/17 0000 Signed Impressions: Service Date/Time: Sunday, April 23, 2017 10:50 - CONCLUSION: DVT in the right upper extremity seen in the right basilic vein. There is also superficial thrombus in the right cephalic vein. Mushtaq Brown MD Cyst Biopsy Asp-Paracentesis US 04/21/17 0000 Signed Impressions: Service Date/Time: April 11:07 - CONCLUSION: Uncomplicated ultrasound guided paracentesis. Please note that the fluid throughout the abdomen is extremely complex with septations. This can be seen when the fluid has become infected or is complicated by hemorrhage or malignancy. Mushtaq Alexis MD Abdomen/Pelvis CT 04/20/17 0000 Signed Impressions: Service Date/Time: Thursday, April 20, 2017 13:56 - CONCLUSION: 1. Moderate volume free fluid in the abdomen and pelvis with possible associated peritoneal thickening. Thickening of the peritoneal lining can be seen with infection. 2. Large right and moderate size left pleural effusion with associated compressive atelectasis. 3. There is an umbilical hernia containing fluid and fat and fluid containing hernia superior and to the left of the umbilicus. This hernia also contains a portion of the transverse colon. 4. Nonacute findings include changes related to chronic liver disease including recanalized paraumbilical vein and bilateral gynecomastia. 5. Other nonacute findings include cholelithiasis and moderate atherosclerotic disease. Mushtaq Alexis MD Objective Remarks Drips: Fentanyl 200 g per hour Amiodarone off Heparin Bumex 2 mg per hour GENERAL: 57-year-old critically ill male, intubated not on sedation SKIN: Warm/dry. No rash; well perfused. Ecchymosis bilateral upper and lower extremities HEAD: Atraumatic. Normocephalic. EYES: Pupils equal and round about 3 mm bilaterally and reactive. No scleral icterus. ENT: No nasal bleeding or discharge. Orotracheally intubated NECK: Trachea midline. No JVD. CARDIOVASCULAR: Sinus rhythm, rate in the 60s on the monitor S1, S2. No S4. No rub. Systolic murmur LSB 2/6 RESPIRATORY: Air entry diminished bilateral lower lung tate. Coarse bilateral breath sounds. Bilateral chest tubes in place with no air leak, serous output Right 675, Left 700 output lat 24 hours. GASTROINTESTINAL: Abdomen soft, distended from ascites, large ventral hernia. Hypoactive bowel sounds. Tolerating tube feeds : Palmer catheter in place MUSCULOSKELETAL: 1+ edema bilateral upper and lower extremity/anasarca NEUROLOGICAL: Intubated. Spontaneous eye opening today. Follows commands x4 but very weak moving only toes and hands. 3 out of 5 left biceps Procedures Paracentesis Thoracentesis Right pigtail chest tube placement Date of Insertion: Apr 25, 2017 A/P Assessment and Plan Neuro/Psych Metabolic encephalopathy Hx of ETOH abuse History of central pontine myelinolysis with quadriparesis --Monitor mental status closely, metabolic encephalopathy secondary to sepsis --Spontaneous eye opening, following commands x4 very weakly --On fentanyl gtt for patient comfort., oxycodone 5 every 6 --MRI brain 04/29 shows resolution of previous osmotic demyelination syndrome -On rifaximin. Last ammonia level 06/06 was normal at 28 CVS Pulmonary edema ? Reexpansion pulmonary edema versus ARDS Atrial fibrillation with RVR -- IV heparin. Previously on Cardizem infusion for Afib rate control. Now rate in 50s on po cardizem. Discontinued amiodarone drip 05/07. Continue PO Cardizem 60 mg PO q6hr. DC Cardizem gtt 05/06 -- Holding Amio 200 mg daily 05/02. Given Digoxin 0.5 mg x1 -- metoprolol 25 q8 with hold orders -- 2d Echo no evidence of endocarditis, normal ejection fraction 60%. Trace MR. Moderate TR. -- IV albumin 25 g every 8 hours. Bumex drip 2 mg per hour Pulmonary Acute hypoxemic respiratory failure Bilateral pigtail chest tubes for large pleural effusions Probable HCAP - Status post right thoracentesis and 2 L fluid removed with IV albumin infusing 04/25 - Patient developed reexpansion pulmonary edema after thoracentesis - Intubated 04/25 ACV ventilation 18/500/10/40. extubated 05/05, but reintubated am due to poor airway protection, weak cough, hypoxemia. - s/p R pigtail CT 04/28 placed by IR, tiny R apical pneumothorax-now resolved - s/p left chest tube placement 8/11 . Still with high ct output bilaterally. -Chest tube output remains high, will remain. - Ventilator bundle. - DuoNeb every 6 hours with albuterol aerosols every 2 when necessary - Previous tracheostomy status post decannulation 2015 - Will need trach again due to anticipated prolonged vent support, if family want to continue aggressive care - Palliative care had been discussing with family-they are expected to be here next week - Once family has decided about tracheostomy, consult general surgery due to previous trach GI Spontaneous bacterial peritonitis with MSSA Cirrhotic liver disease secondary to ETOH abuse and Hepatitis C genotype IIIa Protein calorie malnutrition/moderate Ascitesmoderate -- Prior U/S guided paracentesis 04/21/17, fluid was loculated and septated -- Exudative fluid growing MSSA indicating peritonitis -- Antibiotics per ID -- Status post paracentesis 04/28 300 cc removed. Continues to drain from site -- Resume Jevity 1.5 goal 60 cc an hour per nutrition recommendations. Pantoprazole for GI prophylaxis -- Outpatient workup/treatment for hepatitis C genotype IIIa - [id number] iu per milliliter -- Need PEG for penitentiary feeding, family will make decisions next week. May need general surgery for this also due to large ventral hernia. Renal Acute hyperkalemia Acute kidney injury -- Palmer catheter in place to monitor I/Os in critically ill patient --Creatinine continues to increase and oliguric despite Bumex drip. Discussed with nephrology, Dr. Hale. Dialysis is not emergent and he does not feel patient is a good candidate for hemodialysis due to cirrhosis multiorgan dysfunction and overall prognosis. Patient's son is hopeful that decision can wait until other family members are able to meet with the palliative care team as there is consideration of hospice. Treated hyperkalemia with insulin 10 units IV, dextrose, bicarbonate 2 A, bicarbonate infusion --Patient has been followed typically by Dr. Jay -- Chest x-ray shows persistent bilateral effusions despite chest tube and scheduled Bumex Endocrine/FEN: Hypokalemia (resolved) Hypophosphatemia (resolved) Hypo-magnesium -- Electrolyte replacement protocol as needed Heme Anemia Coagulopathy Thrombocytopenia Right upper extremity superficial thrombosis basilic/cephalic veins -- Anemia, and coagulopathy most likely secondary to chronic liver disease / ETOH use, severe sepsis and consumptive from thrombophlebitis -- HIT negative -- Transfuse 1U PRBC 05/05. Subsequent hemoglobin stable stool for Hemoccult + ve. Platelet count continues to improve with likely consumptive secondary to DVT /sepsis -- Heparin gtt ID: MSSA bacteremia Spontaneous bacterial peritonitis -- Pertinent cultures: - Blood 04/20: 11/20 bottles MSSA - Ascitic fluid 04/21: MSSA - Cultures from 05/02 neg to date Antibiotics per ID. continue renally dosed cefepime 05/03 #6. Prophylaxis: GI -pantoprazole DVT - SCDs; and heparin gtt Discussed with bedside CC RN. Discussed with Dr. Hale, nephrology Patient's son updated 05/07 and 05/08 regarding progressive renal failure and now hyperkalemia. Patient's son would like to hold off on dialysis at this point unless it is emergent as he is hopeful for family to make joint decision regarding goals of care after discussion with palliative care medicine. He is aware that a decision may need to be made more urgently and states he would be willing to pursue dialysis if it was emergent. Level III Domitila Larios MD May 08, 2017 16:28
[2017-05-08] MEDS ORDERED: SODIUM POLYSTYRENE SULFONATE SUSP 15 GM/60 ML CUP PO ONE (16:45)
[2017-05-09] VITALS (36 sets, daily range): BP systolic 93–135; BP diastolic 49–71; PULSE 55–96; RESP 16–41; TEMP 98.7–99.9; O2SAT 90–100
[2017-05-09] MEDS: BUMETANIDE INJ 100 ML IV SCH ×2 (00:06→13:05)
[2017-05-09] MEDS: METOPROLOL TARTRATE 50 MG TAB PO SCH ×3 (00:12→17:09)
[2017-05-09] MEDS: CEFEPIME INJ 2,000 MG in SODIUM CHLORIDE 0.9% INJ 100 ML IV SCH ×2 (00:12→12:08)
[2017-05-09] MEDS: DILTIAZEM HCL 60 MG TAB PO SCH ×4 (00:12→17:09)
[2017-05-09] MEDS: ALBUMIN HUMAN 5% 25 GM/500 ML BOTTLE IV SCH ×3 (00:15→17:09)
[2017-05-09] MEDS: SODIUM BICARBONATE 8.4% INJ 150 MEQ in WATER STERILE FOR INJ 850 ML IV SCH (03:01)
[2017-05-09 04:27] LABS: AUTOMATED NEUTROPHIL # 5.9 TH/MM3 (1.8-7.7); BASOPHIL # 0.4 TH/MM3 (0-0.2); BASOPHIL % 4.8 % (0.0-2.0); EOSINOPHIL # 0.1 TH/MM3 (0-0.4); EOSINOPHIL % 1.4 % (0.0-4.0); HEMATOCRIT 23.5 % (39.0-51.0); LYMPH % 6.8 % (9.0-44.0); LYMPHOCYTE # 0.5 TH/MM3 (1.0-4.8); MEAN CELL VOLUME 87.2 FL (80.0-100.0); MEAN CORPUSCULAR HEMOGLOBIN 28.6 PG (27.0-34.0); MEAN CORPUSCULAR HGB CONC 32.8 % (32.0-36.0); MONO % 9.2 % (0.0-8.0); NEUT % 77.8 % (16.0-70.0); PLATELET COUNT 207 TH/MM3 (150-450); RED BLOOD COUNT 2.69 MIL/MM3 (4.50-5.90); RED CELL DISTRIBUTION WIDTH 20.6 % (11.6-17.2); WHITE BLOOD COUNT 7.6 TH/MM3 (4.0-11.0)
[2017-05-09 04:30] LABS: HEMO FLAGS DIFF FINAL
[2017-05-09] MEDS: fentaNYL DRIP 250 ML IV SCH ×2 (04:38→20:29)
[2017-05-09 04:39] LABS: APTT (PATIENT) 111.3 SEC (24.3-30.1)
[2017-05-09 04:48] LABS: BICARBONATE 18.9 MEQ/L (21.0-32.0); POTASSIUM 5.2 MEQ/L (3.5-5.1)
[2017-05-09 08:46] LABS: APTT (PATIENT) 52.8 SEC (24.3-30.1)
[2017-05-09] MEDS: POTASSIUM CHLORIDE 20 MEQ PWD PACKET NG SCH ×2 (09:00→20:29)
[2017-05-09] MEDS: LACTULOSE SYRUP 20 GM/30 ML CUP PO SCH (09:17)
[2017-05-09] MEDS: MAGNESIUM OXIDE 400 MG TAB PO SCH ×2 (09:17→20:30)
[2017-05-09] MEDS: RIFAXIMIN 550 MG TAB PO SCH ×2 (09:17→21:25)
[2017-05-09] MEDS: PANTOPRAZOLE SODIUM 40 MG VIAL IV PUSH SCH (09:17)
[2017-05-09] MEDS: CHLORHEXIDINE 0.12% (ORAL KIT) 15 ML CUP MT SCH ×2 (09:19→20:30)
[2017-05-09] MEDS: ARTIFICIAL TEARS OPTH OINT 3.5 APPLIC/3.5 GM TUBO EACH EYE SCH ×2 (09:20→20:29)
--- NOTE | 2017-05-09 10:29 | HHI.IDPN ---
Subjective Subjective Remarks ID COVERAGE Mr. Forrest is a 56 year old male patient with cirrhosis, osteoarthritis, atrial fibrillation, hypertension, GERD, sleep apnea, central pontine myelinolysis, EtOH abuse and ascites requiring paracentesis who presented to [facility] ED on 04/20/2017 for evaluation of decreased oral intake and abdominal distention with ascites. Patient had associated left abdominal pain near hernia site. No history of vomiting, having diarrhea (dark in color) for 1 day. Patient's significant other reported he had been declining for 2 weeks and had not been eating or drinking for 2-3 days. Upon presentation to the ED, the patient was tachycardic. An EKG showed atrial fibrillation with RVR; patient is not on anticoagulation therapy. Patient was evaluated in the ED and the suspicion for sepsis. His WBC count was 15.2, platelets 256. His sodium was 133, lactic acid 2.8 and creatinine 1.25. Blood culture drawn on admission is now positive for methicillin sensitive staph aureus as documented by verigene testing. Chest x-ray shows left lower lobe consolidation and pleural effusion. A CT abdomen and pelvis showed moderate volume free fluid associated with peritoneal thickening as well as possible loculations. The patient was started on IV antibiotics and fluids per sepsis protocol. Patient's heart rate remained elevated, maintaining blood pressure, on Cardizem drip. Patient was admitted to CICU for further evaluation and medical management. A CT-guided abdominal ultrasound with paracentesis was completed on 04/21/2017 for ascites with a total of 650 cc of clear, yellow [place]. [place] [address]; peritoneal RBC elevated at 411. Cytology pending. Cardiology consulted for A. fib with RVR on 04/21/2017. GI is following. Per EMR, patient has a history of GI bleed in 2015 secondary to portal hypertension gastropathy; patient had an EGD at that time. Hepatitis C quantitative and genotype pending. Notes reviewed D/W RN Having difficulty breathing Biting ET Respiratory working on patient Temps ok BP ok Creatinine rising UO low Bli CT with good output Antibiotics Cefepime IV Lines PIV Past Medical History Reviewed Allergies: Coded Allergies: No Known Allergies (Unverified , 12/06/16) Objective . Vital Signs Date Time Temp Pulse Resp B/P (MAP) Pulse Ox O2 Delivery O2 Flow Rate FiO2 05/09/17 08:00 94 35 05/09/17 06:00 60 05/09/17 04:00 99.8 96 28 135/61 (85) 96 05/09/17 04:00 96 05/09/17 04:00 40 05/09/17 03:06 96 35 05/09/17 02:00 58 05/09/17 00:59 97 35 05/09/17 00:00 40 05/09/17 00:00 99.9 69 26 129/62 (84) 98 05/09/17 00:00 69 05/08/17 22:00 66 05/08/17 20:26 99 35 05/08/17 20:00 99.8 67 26 132/61 (84) 99 05/08/17 20:00 40 05/08/17 20:00 67 05/08/17 18:00 65 05/08/17 16:00 98.9 56 19 131/61 (84) 100 05/08/17 16:00 40 05/08/17 16:00 56 05/08/17 15:36 99 35 05/08/17 14:10 20 05/08/17 14:00 59 05/08/17 12:00 92 05/08/17 12:00 99.0 93 20 142/65 (90) 100 05/08/17 12:00 40 05/08/17 11:30 100 40 . Laboratory Tests Test 05/08/17 04:37 05/09/17 03:17 White Blood Count 7.7 TH/MM3 7.6 TH/MM3 Red Blood Count 2.92 MIL/MM3 2.69 MIL/MM3 Hemoglobin 8.2 GM/DL 7.7 GM/DL Hematocrit 25.7 % 23.5 % Mean Corpuscular Volume 88.3 FL 87.2 FL Mean Corpuscular Hemoglobin 28.0 PG 28.6 PG Mean Corpuscular Hemoglobin Concent 31.8 % 32.8 % Red Cell Distribution Width 21.7 % 20.6 % Platelet Count 197 TH/MM3 207 TH/MM3 Mean Platelet Volume 8.9 FL 9.4 FL Neutrophils (%) (Auto) 82.0 % 77.8 % Lymphocytes (%) (Auto) 4.9 % 6.8 % Monocytes (%) (Auto) 9.7 % 9.2 % Eosinophils (%) (Auto) 1.3 % 1.4 % Basophils (%) (Auto) 2.1 % 4.8 % Neutrophils # (Auto) 6.3 TH/MM3 5.9 TH/MM3 Lymphocytes # (Auto) 0.4 TH/MM3 0.5 TH/MM3 Monocytes # (Auto) 0.7 TH/MM3 0.7 TH/MM3 Eosinophils # (Auto) 0.1 TH/MM3 0.1 TH/MM3 Basophils # (Auto) 0.2 TH/MM3 0.4 TH/MM3 CBC Comment DIFF FINAL DIFF FINAL Differential Comment Laboratory Tests Test 05/08/17 04:37 05/08/17 13:55 05/09/17 03:17 Blood Urea Nitrogen 78 MG/DL 79 MG/DL 81 MG/DL Creatinine 4.26 MG/DL 4.69 MG/DL 4.81 MG/DL Random Glucose 111 MG/DL 143 MG/DL 130 MG/DL Total Protein 7.3 GM/DL Albumin 3.8 GM/DL Calcium Level 8.8 MG/DL 8.7 MG/DL 8.4 MG/DL Phosphorus Level 4.4 MG/DL 4.7 MG/DL Magnesium Level 2.2 MG/DL Alkaline Phosphatase 44 U/L Aspartate Amino Transf (AST/SGOT) 8 U/L Alanine Aminotransferase (ALT/SGPT) LESS THAN 6 U/L Total Bilirubin 0.8 MG/DL Sodium Level 134 MEQ/L 138 MEQ/L 135 MEQ/L Potassium Level 5.4 MEQ/L 5.3 MEQ/L 5.2 MEQ/L Chloride Level 107 MEQ/L 108 MEQ/L 105 MEQ/L Carbon Dioxide Level 14.4 MEQ/L 19.1 MEQ/L 18.9 MEQ/L Anion Gap 13 MEQ/L 11 MEQ/L 11 MEQ/L Estimat Glomerular Filtration Rate 14 ML/MIN 13 ML/MIN 12 ML/MIN Imaging Chest X-Ray 05/06/17 0000 Signed Impressions: Service Date/Time: Saturday, May 06, 2017 02:51 - CONCLUSION: 1. Right- sided [place] loop thoracostomy tubes are stable in position. Worsening left-sided effusion and persistent right-sided effusion. 2. Bilateral airspace disease, right greater than left. These appear worse when compared to the prior exam. 3. Interval removal of the nasogastric tube. Endotracheal tube remains appropriately positioned above the adelita. Antonio Lopez MD Chest X-Ray 05/05/17 0600 Signed Impressions: Service Date/Time: April 04:04 - CONCLUSION: Stable bilateral partially consolidated infiltrates. Kwaku Haro MD Chest X-Ray 05/04/17 0600 Signed Impressions: Service Date/Time: Thursday, May 04, 2017 04:40 - CONCLUSION: Stable bilateral infiltrates, right greater than left. Kwaku Haro MD Last Impressions Chest X-Ray 04/30/17 0600 Signed Impressions: Service Date/Time: Sunday, April 30, 2017 03:45 - CONCLUSION: 1. Tiny right apical pneumothorax. 2. No pneumothorax on the left. 3. Minimal bilateral airspace disease. Charlie Claudio MD Brain MRI 04/29/17 0000 Signed Impressions: Service Date/Time: Saturday, April 29, 2017 10:08 - CONCLUSION: 1. No evidence of acute infarct, hemorrhage, mass or edema. 2. No evidence of pontine myelinolysis. 3. 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 Escobar Antony MD Chest Tube Insertion 04/28/17 1555 Signed Impressions: Service Date/Time: April 15:51 - CONCLUSION: Uncomplicated chest tube placement as above. Escobar Antony MD Chest CT 04/28/17 0000 Signed Impressions: Service Date/Time: April 15:51 - CONCLUSION: 1. Bilateral pleural effusions as described. 2. Extensive patchy consolidating infiltrates both lungs. 3. Cardiomegaly. 4. Ascites. Escobar Antony MD Abdomen X-Ray 04/28/17 0000 Signed Impressions: Service Date/Time: April 11:21 - CONCLUSION: Nonspecific bowel gas pattern with some mild gaseous distention of the colon. There is an NG tube in stomach. Srinivasan Ivory MD Upper Extremity Ultrasound 04/23/17 0000 Signed Impressions: Service Date/Time: Sunday, April 23, 2017 10:50 - CONCLUSION: DVT in the right upper extremity seen in the right basilic vein. There is also superficial thrombus in the right cephalic vein. Mushtaq Brown MD Cyst Biopsy Asp-Paracentesis US 04/21/17 0000 Signed Impressions: Service Date/Time: April 11:07 - CONCLUSION: Uncomplicated ultrasound guided paracentesis. Please note that the fluid throughout the abdomen is extremely complex with septations. This can be seen when the fluid has become infected or is complicated by hemorrhage or malignancy. Mushtaq Alexis MD Abdomen/Pelvis CT 04/20/17 0000 Signed Impressions: Service Date/Time: Thursday, April 20, 2017 13:56 - CONCLUSION: 1. Moderate volume free fluid in the abdomen and pelvis with possible associated peritoneal thickening. Thickening of the peritoneal lining can be seen with infection. 2. Large right and moderate size left pleural effusion with associated compressive atelectasis. 3. There is an umbilical hernia containing fluid and fat and fluid containing hernia superior and to the left of the umbilicus. This hernia also contains a portion of the transverse colon. 4. Nonacute findings include changes related to chronic liver disease including recanalized paraumbilical vein and bilateral gynecomastia. 5. Other nonacute findings include cholelithiasis and moderate atherosclerotic disease. Mushtaq Alexis MD Physical Exam GENERAL: Opens eyes, dyspneic on the vent SKIN: Dry, purpuric areas in BUE HEAD: Atraumatic. Normocephalic. No temporal or scalp tenderness. EYES: Pupils equal round and reactive. No scleral icterus. No injection or drainage. ENT: Nose without bleeding, purulent drainage. Orally intubated NECK: Trachea midline. Supple, nontender, no meningeal signs. CARDIOVASCULAR: Irregular SiS2, tachycardic, no rub RESPIRATORY: Clear to auscultation. Breath sounds equal bilaterally but decreased in the bases. b/l CTs with serous drainage GASTROINTESTINAL: Abdomen tensely distended, tender on palpation, tympanitic on percussion. At site of prior PEG tube there is a large balloting hernia. MUSCULOSKELETAL: Extremities without clubbing, cyanosis. No embolic lesions. 3-4 + pitting edema NEUROLOGICAL: Awake Psych: unable to assess IV line sites with no e.o infection. Assessment & Plan Remarks MSSA sepsis, source, ?endocarditis, ?loculated ascites. Pneumonia ? septic emboli. Not an aspiration risk. ESLD with ascites. S/P paracentesis, fluid exudative, loculated. Peritonitis MSSA. SBP, MSSA Hypotension ? hypoalbuminemia ? sepsis related. - BP better not on pressors Atrial fib with RVR Respiratory failure, reintubated; - fluid overload, b/l effusions sp bl CT - no e/o empyema - worsening infiltrates likely due to worsening renal function Acute renal failure: diuretics, antibiotics ? Acute thrombocytopenia: ? ESLD, ? HIT, ? sepsis. PLAN Continue Cefepime IV for now. Sputum cultures with normal resp tiana. Negative Cdiff PCR Doppler LE negative. Monitor progress Monitor temps Family meeting to determine goals of treatment D/W Nichole Benjamin MD May 09, 2017 10:29
--- NOTE | 2017-05-09 11:28 | HHI.NPPN ---
Subjective General Problems: Anemia Renal Failure: Acute Interval History He remains intubated, sedated, fluid overloaded. Renal function is worse. He is on bumex gtt. Family to meet today to discuss goals. (Carolina Brandon) Review of Systems General General Remarks unable to evaluate (Carolina Brandon) Objective Data Data Vital Signs Date Time Temp Pulse Resp B/P (MAP) Pulse Ox O2 Delivery O2 Flow Rate FiO2 05/09/17 10:51 99 70 05/09/17 08:00 94 35 05/09/17 06:00 60 05/09/17 04:00 99.8 96 28 135/61 (85) 96 05/09/17 04:00 96 05/09/17 04:00 40 05/09/17 03:06 96 35 05/09/17 02:00 58 05/09/17 00:59 97 35 05/09/17 00:00 40 05/09/17 00:00 99.9 69 26 129/62 (84) 98 05/09/17 00:00 69 05/08/17 22:00 66 05/08/17 20:26 99 35 05/08/17 20:00 99.8 67 26 132/61 (84) 99 05/08/17 20:00 40 05/08/17 20:00 67 05/08/17 18:00 65 05/08/17 16:00 98.9 56 19 131/61 (84) 100 05/08/17 16:00 40 05/08/17 16:00 56 05/08/17 15:36 99 35 05/08/17 14:10 20 05/08/17 14:00 59 05/08/17 12:00 92 05/08/17 12:00 99.0 93 20 142/65 (90) 100 05/08/17 12:00 40 05/08/17 11:30 100 40 (Carolina Brandon) -: 05/09/1731605/09/17316 Tubes & Lines: [place] Tubes & Lines Comment TLC, rectal tube, chest tube bilaterally Drip Comment heparin, fentanyl, bumex @ 2mg/hr (Carolina Brandon) Physical Exam General Appearance: No Acute Distress, Malnourished (Carolina Brandon) Throat Throat Exam: Oral Mucosa Social Circle & Moist (Carolina BrandonP) Pulmonary Resp Exam: Breath Sounds Equal, Crackles, Rhonchi, Sputum Resp Remarks intubated (Carolina Brandon) Cardiology CV Exam: Good Perfusion, Irregular, Tachycardia (Carolina Brandon GUTTER HANGER) Gastrointestinal/Abdomen GI Exam: Non-Tender, Bowel Sounds Present, Distended GI Remarks large ventral hernia is present (Carolina Brandon) Musculoskeletal MS Exam: Joints Intact, Normal Tone, Unable to Ambulate (Carolina Brandon GUTTER HANGER) Integumentary Skin Exam: Warm, Dry Skin Remarks sacral ulcer, right arm with bruising (Carolina Brandon) Extremeties Extremities Exam: Moderate Edema, Pitting Edema, Dependent Edema Extremeties Remarks upper extremity edema persists, lower extremity edema improved (Carolina Brandon) Neurologic Neuro Exam: Sedated (Carolina Brandon) VTE Prophylaxis Device: SCDs (Carolina Brandon) Assessment/Plan Assessment Summary: HILARY/Acute Renal Failure, Fluid/Volume Overload, Hypertension Problem List: (1) Acute renal failure ICD Codes: N17.9 - Acute kidney failure, unspecified Status: Acute Plan: In a patient with normal renal function on arrival HILARY may be due to hypoperfusion injury with possible ATN creatinine is worse today On bumex drip, not responding adequately . Poor candidate for dialysis given cirrhosis and poor long-term prognosis. Family to discuss goals in meeting today in the meantime continue current plan, await family decision repeat labs in AM (2) Bacterial peritonitis ICD Codes: K65.9 - Peritonitis, unspecified Status: Acute Plan: ID has evaluated MSSA, on cefepime , vancomycin was stopped monitor clinically he is on tube feeding through OG tube (3) Atrial fibrillation with RVR ICD Codes: I48.91 - Atrial fibrillation with rapid ventricular response Status: Acute Plan: with RVR, rate is normal on heparin for anticoagulation blood pressure is acceptable monitor (4) HTN (hypertension) ICD Codes: I10 - Essential (primary) hypertension Status: Chronic Plan: continue medications as ordered follow blood pressure (5) Anemia ICD Codes: D64.9 - Anemia, unspecified Status: Acute Plan: with coagulopathy, possibly related to liver disease he is Hemoccult positive follow Hb (Carolina Brandon) Plan patient was seen and examined. He is doing poorly. Dialysis will not change the outcome. Recommend hospice. (Feng Garcia MD) Problem Qualifiers (1) Acute renal failure: Qualified Codes: N17.0 - Acute kidney failure with tubular necrosis Carolina Brandon May 09, 2017 11:27 Feng Garcia MD May 10, 2017 11:05
--- NOTE | 2017-05-09 11:32 | HHI.GIFU ---
Subjective Remarks Resting in bed. Sedated on ventilator. Nurse reports that he regurgitated small amount of TF orally, although she has not had high residuals. More distended today. (+) BM. Palliative care following, having meeting with family today. (Megan Orellana) Objective Vitals I&O Vital Signs Date Time Temp Pulse Resp B/P (MAP) Pulse Ox O2 Delivery O2 Flow Rate FiO2 05/09/17 10:51 99 70 05/09/17 08:00 94 35 05/09/17 06:00 60 05/09/17 04:00 99.8 96 28 135/61 (85) 96 05/09/17 04:00 96 05/09/17 04:00 40 05/09/17 03:06 96 35 05/09/17 02:00 58 05/09/17 00:59 97 35 05/09/17 00:00 40 05/09/17 00:00 99.9 69 26 129/62 (84) 98 05/09/17 00:00 69 05/08/17 22:00 66 05/08/17 20:26 99 35 05/08/17 20:00 99.8 67 26 132/61 (84) 99 05/08/17 20:00 40 05/08/17 20:00 67 05/08/17 18:00 65 05/08/17 16:00 98.9 56 19 131/61 (84) 100 05/08/17 16:00 40 05/08/17 16:00 56 05/08/17 15:36 99 35 05/08/17 14:10 20 05/08/17 14:00 59 05/08/17 12:00 92 05/08/17 12:00 99.0 93 20 142/65 (90) 100 05/08/17 12:00 40 05/08/17 11:30 100 40 I/O 05/08/17 05/08/17 05/08/17 05/09/17 05/09/17 05/09/17 06:59 14:59 22:59 06:59 14:59 22:59 Intake Total 605 ml 1358 ml 1606 ml Output Total 350 ml 750 ml 900 ml Balance 255 ml 608 ml 706 ml Intake Oral 0 ml IV Total 240 ml 971 ml 673 ml Tube Feeding 265 ml 387 ml 733 ml Other 100 ml 200 ml Output Urine Total 50 ml 100 ml 100 ml Stool Total 300 ml Chest Tube Drainage Total 300 ml 350 ml 800 ml Laboratory Laboratory Tests Test 05/08/17 13:55 05/09/17 03:17 05/09/17 08:17 Blood Urea Nitrogen 79 81 Creatinine 4.69 4.81 Random Glucose 143 130 Calcium Level 8.7 8.4 Sodium Level 138 135 Potassium Level 5.3 5.2 Chloride Level 108 105 Carbon Dioxide Level 19.1 18.9 Anion Gap 11 11 Estimat Glomerular Filtration Rate 13 12 White Blood Count 7.6 Red Blood Count 2.69 Hemoglobin 7.7 Hematocrit 23.5 Mean Corpuscular Volume 87.2 Mean Corpuscular Hemoglobin 28.6 Mean Corpuscular Hemoglobin Concent 32.8 Red Cell Distribution Width 20.6 Platelet Count 207 Mean Platelet Volume 9.4 Neutrophils (%) (Auto) 77.8 Lymphocytes (%) (Auto) 6.8 Monocytes (%) (Auto) 9.2 Eosinophils (%) (Auto) 1.4 Basophils (%) (Auto) 4.8 Neutrophils # (Auto) 5.9 Lymphocytes # (Auto) 0.5 Monocytes # (Auto) 0.7 Eosinophils # (Auto) 0.1 Basophils # (Auto) 0.4 CBC Comment DIFF FINAL Differential Comment Activated Partial Thromboplast Time 111.3 52.8 Phosphorus Level 4.7 Date/Time Source Procedure Growth Status 05/03/17 19:22 Blood Peripheral Aerobic Blood Culture - Final NO GROWTH IN 5 DAYS Complete 05/03/17 19:22 Blood Peripheral Anaerobic Blood Culture - Final NO GROWTH IN 5 DAYS Complete 04/29/17 13:00 Fluid Pleural Fluid Fungal Smear - Final NO FUNGAL ELEMENTS SEEN. Resulted 04/29/17 13:00 Fluid Pleural Fluid Fungal Culture - Preliminary NO GROWTH IN 1 WEEK Resulted 05/03/17 11:40 Stool Stool Stool Occult Blood (BARBARA) - Final HEMOCCULT POSITIVE Complete 05/03/17 13:55 Sputum Endotracheal Gram Stain - Final Complete 05/03/17 13:55 Sputum Endotracheal Sputum Culture - Final HEAVY GROWTH NORMAL RESPIRATORY PRAVIN Complete 05/02/17 17:22 Urine Catheterized Urine Urine Culture - Final NO GROWTH IN 48 HOURS. Complete Imaging CXR (05/06/17)----> right-sided [place] loop thoracostomy tubes are stable in position. Worsening left sided effusion and persistent right sided effusion, bilateral airspace disease, right greater than left. These appear worse when compared to the prior exam, interval removal of the nasogastric tube. Endotracheal tube remains appropriately positioned above the adelita. Physical Exam HEENT: Normocephalic; atraumatic; no jaundice. Intubated CHEST: OETT to vent. Mildly labored. Course breath sounds. Bilateral chest tubes with serous drainage. CARDIAC: Irregular ABDOMEN: Semi-firm, distended with ascites, large ventral hernia and smaller umbilical hernia, nontender, hypoactive bowel sounds. EXT. 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 S/P Cyst Biopsy Asp-Paracentesis US (04/21/17)----> Uncomplicated ultrasound guided paracentesis. Please note that the fluid throughout the abdomen is extremely complex with septations. This can be seen when the fluid has become infected or is complicated by hemorrhage or malignancy, 650cc removed. Cytology with numerous neutrophils and macrophages, negative for malignant cells. Cx with Staphylococcus aureus. Bedside paracentesis (04/28/17)----> 300cc removed, Cx with staphylococcus aureus. Cefepime Albumin. Bumex gtt per renal. - Liver cirrhosis. Abdomen/Pelvis CT (04/20/17)----> 1. Moderate volume free fluid in the abdomen and pelvis with possible associated peritoneal thickening. Thickening of the peritoneal lining can be seen with infection. 2. Large right and moderate size left pleural effusion with associated compressive atelectasis. 3. There is an umbilical hernia containing fluid and fat and fluid containing hernia superior and to the left of the umbilicus. This hernia also contains a portion of the transverse colon. 4. Nonacute findings include changes related to chronic liver disease including recanalized paraumbilical vein and bilateral gynecomastia. 5. Other nonacute findings include cholelithiasis and moderate atherosclerotic disease. Has Hepatitis C. MELD 31 from last INR available. His renal failure is affecting this score. - Mild colonic ileus. Lactulose. (+) BM. Nurse reports regurgitation of TF, although no high residuals. Has worsening distention, but unclear how much is ileus and how much is fluid overload. Hold TF Get KUB. - Large ventral hernia, smaller umbilical hernia. Stable. - Anemia, normocytic. He does have hx UGIB in 2015 r/t portal hypertensive gastropathy, but no active bleeding at this time. S/P 1 unit PRBC. - Thrombocytopenia. Hematology following, likely related to abx/sepsis. Improving - Hx of hep-C- quant 22,500 - Right DVT on US, on heparin - Resp. failure, pleural effusin, PNA, on CPAP, bilateral chest tubes - Atrial fibrillation with RVR. Cardiology following. - Acute renal failure. Nephrology following. Bumex gtt PLAN - Hold TF for now - KUB today - Cont. Lactulose - Cont. Xifaxan - Cont. Albumin - Diuretics per renal, on Bumex gtt - Monitor HH, Plt - Transfuse as necessary - Supportive care - Further recommendations to follow based on results of above. - Pt with poor prognosis. Difficult to treat fluid overload with worsening renal function - Patient seen and examined by Dr. Cisneros and myself and this note is written on his behalf. (Megan Orellana) Physician Comments Agree with above. Will follow up with you. (Cece Cisneros MD) Megan Orellana May 09, 2017 11:32 Cece Cisneros MD May 09, 2017 17:37
--- NOTE | 2017-05-09 12:26 | RADRPT ---
EXAM DATE/TIME: 05/09/2017 11:51 [place] COMPARISON: ABDOMEN KUB ONLY, April 28, 2017, 11:21. INDICATIONS : Ileus MEDICAL HISTORY : Arthritis. Cirrhosis. Hypertension. seizures, etoh withdrawal, atrial fibrillation SURGICAL HISTORY : tracheostomy, g tube ENCOUNTER: Initial ACUITY: 2 weeks PAIN SCORE: Non-responsive. LOCATION: Bilateral abdomen FINDINGS: Supine view of the abdomen was performed. The abdominal bowel gas pattern is normal. No abnormal ma sses, calcifications, or organomegaly is seen. A nasogastric tube seen with the tip in the region of the body of the stomach. A thoracostomy tube overlies the left lung base. The osseous structures are unremarkable. CONCLUSION: No dilated loops of bowel. Kwaku Rosario Jr., MD on May 09, 2017 at 12:23 Board Certified Radiologist. This report was verified electronically.
--- NOTE | 2017-05-09 14:40 | HHI.HCPN ---
Reason for visit a. To assist with evaluation and management of symptoms including: confusion , pain, decreased appetite, dyspnea b. To assist medical decision maker(s) with: better understanding of current medical conditions; weighing benefits/burdens of medical treatment options; making medical treatment decisions. . Subjective/Interval History Mr. Forrest is a 56 year old male patient with cirrhosis, osteoarthritis, atrial fibrillation, hypertension, GERD, sleep apnea, central pontine myelinolysis, EtOH abuse and ascites requiring paracentesis admitted to [facility] ED on04/20/2017 for management of sepsis, failure to thrive and dehydration. Status post intubation on 04/26/17 secondary to hypoxemic respiratory failure, extubation on and re-intubation the following day on 05/06/17 secondary to hypoxemia and inability to protect airway. Patient remains sedated on fentanyl and intubated on mechanical ventilator; FiO2 70%. Ongoing fluid overload and bilateral pleural effusions. Patient remains encephalopathic. Does not respond to verbal or tactile stimuli consistently; patient appears generally uncomfortable on exam. Worsening kidney functioning; BUN: 81, creatinine 4.81, GFR 12 Creatinine continues to trend upwards; patient oliguric despite Bumex drip. Medically treating hyperkalemia; potassium of 5.2 today. Nephrology continues to follow, feels patient is a poor candidate for dialysis secondary to his cirrhosis and overall poor long-term prognosis. TF on hold because nursing report patient regurgitating TF orally this AM, no residuals reported. KUB pending. Infectious disease following,continue to follow culture. Remains on Cefepime. . Family/friend interactions Met with patient's son, brother, sister and significant other at bed side and privately in the family conference room. Discussed patient clinical condition and overall prognosis, considered ongoing interventions vs. transitioning to comfort. focused care. Family is considering hospice but would like to think about and speak privately before making a decision. . Advance Directives Advance Directive Specifics Documented care wishes: No documented care wishes have been completed . Objective Vital Signs Date Time Temp Pulse Resp B/P (MAP) Pulse Ox O2 Delivery O2 Flow Rate FiO2 05/09/17 11:30 69 05/09/17 11:30 69 17 114/55 (74) 100 05/09/17 11:00 71 05/09/17 11:00 71 19 124/58 (80) 97 05/09/17 10:51 99 70 05/09/17 10:30 70 05/09/17 10:30 73 19 116/67 (83) 99 05/09/17 10:30 73 05/09/17 10:00 69 22 90 05/09/17 10:00 69 05/09/17 09:30 64 40 121/59 (79) 95 05/09/17 09:30 64 05/09/17 09:00 35 05/09/17 09:00 64 41 117/58 (77) 95 05/09/17 09:00 64 05/09/17 08:30 63 05/09/17 08:30 63 37 115/58 (77) 95 05/09/17 08:00 62 05/09/17 08:00 99.5 62 35 115/57 (76) 94 05/09/17 08:00 94 35 05/09/17 07:30 61 05/09/17 07:00 61 05/09/17 06:00 60 05/09/17 04:00 99.8 96 28 135/61 (85) 96 05/09/17 04:00 96 05/09/17 04:00 40 05/09/17 03:06 96 35 05/09/17 02:00 58 05/09/17 00:59 97 35 05/09/17 00:00 40 05/09/17 00:00 99.9 69 26 129/62 (84) 98 05/09/17 00:00 69 05/08/17 22:00 66 05/08/17 20:26 99 35 05/08/17 20:00 99.8 67 26 132/61 (84) 99 05/08/17 20:00 40 05/08/17 20:00 67 05/08/17 18:00 65 05/08/17 16:00 98.9 56 19 131/61 (84) 100 05/08/17 16:00 40 05/08/17 16:00 56 05/08/17 15:36 99 35 Intake & Output 05/09/17 05/09/17 06:59 18:59 Intake Total 1606 ml Output Total 900 ml Balance 706 ml IV Total 673 ml Tube Feeding 733 ml Other 200 ml Output Urine Total 100 ml Chest Tube Drainage Total 800 ml . Physical Exam CONSTITUTIONAL/GENERAL: This is a frail, cachectic male patient who appears older than his stated age. TUBES/LINES/DRAINS: ETT, OGT, PIV x 2, urinary catheter, rectal bag, soft restraints SKIN: Ecchymoses on upper extremities. Skin temperature appropriate. Not diaphoretic. HEAD: Atraumatic. Normocephalic. EYES: Pupils equal and round and reactive. No injection or drainage. Fundi not examined. ENT: Nose without bleeding or purulent drainage. Orientation NECK: Trachea midline. CARDIOVASCULAR: Irregular. Bilateral upper and lower extremities with 2+ to 3+ edema; upper extremities weeping. Peripheral pulses symmetric. RESPIRATORY/CHEST: Intubated on mechanical vent. Course breath sounds. GASTROINTESTINAL: Abdomen increasingly distended with ascites. Large umbilical hernia. Hypoactive bowel sounds GENITOURINARY: Without palpable bladder distension. Palmer catheter in place. MUSCULOSKELETAL: Extremities without clubbing, cyanosis. Bilateral upper and lower extremities edematous LYMPHATICS: No palpable cervical or supraclavicular adenopathy. NEUROLOGICAL: Patient does not arouse to verbal or tactile stimuli consistently. PSYCHIATRIC: Unable to assess due to patient's medical condition, sedated on mechanical ventilator. . Diagnostic Tests Laboratory Laboratory Tests Test 05/07/17 06:17 05/08/17 04:37 05/08/17 13:55 05/09/17 03:17 White Blood Count 6.3 TH/MM3 (4.0-11.0) 7.7 TH/MM3 (4.0-11.0) 7.6 TH/MM3 (4.0-11.0) Red Blood Count 2.96 MIL/MM3 (4.50-5.90) 2.92 MIL/MM3 (4.50-5.90) 2.69 MIL/MM3 (4.50-5.90) Hemoglobin 8.5 GM/DL (13.0-17.0) 8.2 GM/DL (13.0-17.0) 7.7 GM/DL (13.0-17.0) Hematocrit 25.8 % (39.0-51.0) 25.7 % (39.0-51.0) 23.5 % (39.0-51.0) Mean Corpuscular Volume 87.2 FL (80.0-100.0) 88.3 FL (80.0-100.0) 87.2 FL (80.0-100.0) Mean Corpuscular Hemoglobin 28.7 PG (27.0-34.0) 28.0 PG (27.0-34.0) 28.6 PG (27.0-34.0) Mean Corpuscular Hemoglobin Concent 32.9 % (32.0-36.0) 31.8 % (32.0-36.0) 32.8 % (32.0-36.0) Red Cell Distribution Width 19.9 % (11.6-17.2) 21.7 % (11.6-17.2) 20.6 % (11.6-17.2) Platelet Count 148 TH/MM3 (150-450) 197 TH/MM3 (150-450) 207 TH/MM3 (150-450) Mean Platelet Volume 9.3 FL (7.0-11.0) 8.9 FL (7.0-11.0) 9.4 FL (7.0-11.0) Activated Partial Thromboplast Time 43.1 SEC (24.3-30.1) 44.1 SEC (24.3-30.1) 111.3 SEC (24.3-30.1) Blood Urea Nitrogen 74 MG/DL (7-18) 78 MG/DL (7-18) 79 MG/DL (7-18) 81 MG/DL (7-18) Creatinine 3.77 MG/DL (0.60-1.30) 4.26 MG/DL (0.60-1.30) 4.69 MG/DL (0.60-1.30) 4.81 MG/DL (0.60-1.30) Random Glucose 95 MG/DL (74-106) 111 MG/DL (74-106) 143 MG/DL (74-106) 130 MG/DL (74-106) Total Protein 7.0 GM/DL (6.4-8.2) 7.3 GM/DL (6.4-8.2) Albumin 3.5 GM/DL (3.4-5.0) 3.8 GM/DL (3.4-5.0) Calcium Level 8.6 MG/DL (8.5-10.1) 8.8 MG/DL (8.5-10.1) 8.7 MG/DL (8.5-10.1) 8.4 MG/DL (8.5-10.1) Alkaline Phosphatase 45 U/L (45-117) 44 U/L (45-117) Aspartate Amino Transf (AST/SGOT) 11 U/L (15-37) 8 U/L (15-37) Alanine Aminotransferase (ALT/SGPT) LESS THAN 6 U/L (12-78) LESS THAN 6 U/L (12-78) Total Bilirubin 1.1 MG/DL (0.2-1.0) 0.8 MG/DL (0.2-1.0) Sodium Level 138 MEQ/L (136-145) 134 MEQ/L (136-145) 138 MEQ/L (136-145) 135 MEQ/L (136-145) Potassium Level 4.5 MEQ/L (3.5-5.1) 5.4 MEQ/L (3.5-5.1) 5.3 MEQ/L (3.5-5.1) 5.2 MEQ/L (3.5-5.1) Chloride Level 106 MEQ/L (98-107) 107 MEQ/L (98-107) 108 MEQ/L (98-107) 105 MEQ/L (98-107) Carbon Dioxide Level 18.8 MEQ/L (21.0-32.0) 14.4 MEQ/L (21.0-32.0) 19.1 MEQ/L (21.0-32.0) 18.9 MEQ/L (21.0-32.0) Anion Gap 13 MEQ/L (5-15) 13 MEQ/L (5-15) 11 MEQ/L (5-15) 11 MEQ/L (5-15) Estimat Glomerular Filtration Rate 17 ML/MIN (>89) 14 ML/MIN (>89) 13 ML/MIN (>89) 12 ML/MIN (>89) Neutrophils (%) (Auto) 82.0 % (16.0-70.0) 77.8 % (16.0-70.0) Lymphocytes (%) (Auto) 4.9 % (9.0-44.0) 6.8 % (9.0-44.0) Monocytes (%) (Auto) 9.7 % (0.0-8.0) 9.2 % (0.0-8.0) Eosinophils (%) (Auto) 1.3 % (0.0-4.0) 1.4 % (0.0-4.0) Basophils (%) (Auto) 2.1 % (0.0-2.0) 4.8 % (0.0-2.0) Neutrophils # (Auto) 6.3 TH/MM3 (1.8-7.7) 5.9 TH/MM3 (1.8-7.7) Lymphocytes # (Auto) 0.4 TH/MM3 (1.0-4.8) 0.5 TH/MM3 (1.0-4.8) Monocytes # (Auto) 0.7 TH/MM3 (0-0.9) 0.7 TH/MM3 (0-0.9) Eosinophils # (Auto) 0.1 TH/MM3 (0-0.4) 0.1 TH/MM3 (0-0.4) Basophils # (Auto) 0.2 TH/MM3 (0-0.2) 0.4 TH/MM3 (0-0.2) CBC Comment DIFF FINAL DIFF FINAL Differential Comment Phosphorus Level 4.4 MG/DL (2.5-4.9) 4.7 MG/DL (2.5-4.9) Magnesium Level 2.2 MG/DL (1.5-2.5) Test 05/09/17 08:17 Activated Partial Thromboplast Time 52.8 SEC (24.3-30.1) . Result Diagram: 05/09/17 0317 05/09/17 0317 Procedures 04/21/17: Ultrasound guided paracentesis 04/28/17: Right chest tube 04/28/17: Ultrasound guided paracentesis 04/29/17: Left chest tube . Assessment and Plan Disease Oriented Problem List: (1) Diarrhea (2) HTN (hypertension) (3) Atrial fibrillation with RVR (4) Encephalopathy (5) Sepsis (6) Ascites (7) Bacterial peritonitis (8) Pneumonia (9) Pleural effusion (10) Alcohol abuse (11) Wernicke-Korsakoff syndrome (alcoholic) Symptom Scale: (1) Decrease in appetite (2) Pain (3) Dyspnea (4) Confusion Pertinent Non-Medical Issues Psychosocial: Patient is originally from [place], [place]. His parents are ; he has/had 3 siblings (Anay, Josefa, Tigre). He moved to [place] in 2012. Patient is . Patient has 1 son, Rickey malone, who is the healthcare proxy decision-make Spiritual: Raised worship Legal: Per [facility] statutes, in the absence of written advanced directives healthcare proxy decision-making falls to the patient's son. Ethical issues impacting care: No known ethical issues impacting care. . Important Contacts Rickey Forrest III, son: [phone] (Son DOES WISH to serve has health care proxy). Anay Blount, sister: ([place]) [phone] Josefa Driver, sister: [phone] Tigre Forrest, sister: [phone] . Prognosis Patient is a 57 year old male patient with a history of liver disease with ascites requiring paracentesis secondary to EtOH abuse. Currently admitted with sepsis/bacterial peritonitis/pneumonia with pleural effusions, encephalopathy and atrial fibrillation with RVR. S/P intubation, chest tubes x 2 , and multiple paracenteses. Patient is extremely debilitated. Prognosis is poor. . Code Status: Full Code Plan * FULL CODE * Decision-making: Per [place] statutes, in the absence of written advanced directives healthcare proxy decision-making falls to the patient's son Rickey malone. Risa Pena is NOT the patient's and should not be included in any medical decision making. HCP: Rickey Forrest III, son: [phone] * Goals: Aggressive goals * Discussed with patient's nurse (Le), Megan MADISON and Dr. Larios. * Met with patient's son, brother, sister and significant other at bed side and privately in the family conference room. Discussed patient clinical condition and overall prognosis, considered ongoing interventions vs. transitioning to comfort. focused care. Family is considering hospice but would like to think about and speak privately before making a decision. * Symptom management-decreased appetite: TF on hold because nursing report patient regurgitating TF orally this AM, no residuals reported. Abdomen increasingly distended with ascites KUB pending. * Symptom managementdyspnea: status post intubation on 04/26/17 secondary to hypoxemic respiratory failure, extubation on 05/05/17 and re-intubation the following day on 05/06/17 secondary to hypoxemia and inability to protect airway. Patient remains sedated on fentanyl and intubated on mechanical ventilator; FiO2 70%. Ongoing fluid overload and bilateral pleural effusions. * Palliative care providing ongoing support and active listening. . Attestation To help prompt me to consider important information that might be impacting today's encounter and assessment, information from prior notes written by myself or my colleagues may have been "brought forward" into today's note. My signature on this note, however, is an attestation that I personally performed the exam, history, and/or decision-making noted today, and, unless otherwise indicated, the interactions with patient, family, and staff as well as the review of records all occurred today. I also attest that the listed assessment and stated plan reflect my best clinical judgment today based on the combination of historical information, prior notes, and today's exam/ interactions. When time spent is documented, it refers only to time spent today by the signer, or if indicated, combined time spent today by collaborating physician/nurse practitioner. . Adina Gonzalez May 09, 2017 14:40
[2017-05-09 15:41] LABS: APTT (PATIENT) 81.8 SEC (24.3-30.1)
--- NOTE | 2017-05-09 20:32 | HHI.CCPN ---
Subjective Remarks/Hospital Course History of Present Illness Mr. Forrest is a 56 year old male patient with cirrhosis secondary to hepatitis C and alcohol dependence, atrial fibrillation, hypertension, GERD, sleep apnea, history of central pontine myelinolysis,ascites requiring paracentesis who admitted to [facility] with on 04/20/2017 for evaluation of decreased oral intake, probable sepsis and ascites. An EKG on admission showed atrial fibrillation with RVR. His initial WBC count was 15K. Infectious disease was consulted and patient was placed on broad-spectrum antibiotic. Recently underwent paracentesis by IR on 04/21/17 with the fluid was described as loculated and septated. Fluid culture grew MSSA. 3 out of 4 blood cultures on 04/20/17 growing MSSA. For Atrial fibrillation with RVR patient was placed on Cardizem drip. Paracentesis on 04/21/2017 650 ccfluid removed. Peritoneal WBC - 22142; peritoneal RBC - 411. Patient had been receiving Ancef and vancomycin per ID recommendation Critical care medicine was consulted today a.m. as patient was increasingly short of breath and dyspneic and hypoxemic. Patient was placed on BiPAP 15/7 at 80% oxygen. I immediately evaluated the patient he appeared to be in moderate to severe distress. Bedside ultrasound showed large right-sided pleural effusion. I gave him 25 g of albumin and performed thoracentesis with 2 L of fluid removal. Chest x-ray postprocedure showed significant clearing of the right lung field but increased edema involving the left lung field. It is possible that patient has developed reexpansion pulmonary edema, I gave him 2 mg of IV bumex. Repeat Chest x-ray continues to show bilateral pulmonary edema , I have signed out this case to Dr. Bob who will most likely intubated the patient. Subjective subjective: 04/26: The patient required intubation, due to hypoxemic respiratory failure last a.m.. Patient still requires has high oxygen and ventilatory requirements,PEEP increased to 10. Aggressive diuresis continues. The patient converted to normal sinus rhythm yesterday afternoon amiodarone has been discontinued Cardizem has been discontinued. The patient continues on metoprolol twice a day. 04/27: Decreased urinary output overnight. Bumex 1 mg/hour instituted. Plan for repeat paracentesis procedure. The patient remains normal sinus rhythm. 04/28: Afebrile. Paracentesis today only 300 cc. Possibly slightly loculated. Weaning back loop diuretic in light of worsening renal function. Plan for right-sided pigtail catheter for recurrent pleural effusion. In attempt to wean off ventilator. Tolerating tube feeding at 10 cc an hour 04/29: Patient had a IR placed 10 [place] chest tube on the right side with 1.7 L drained. Urine output 3.3 L in 24 hours. Remains severely encephalopathic. Bedside US shows moderate L effusion 81/2: Remains intubated. Developed Afib with RVR, rate 150-160. Cardizem gtt after 20 mg IVP with no improvement. Metoprolol 5 mg IVPx1. Start Amiodarone if not improved (already on full anticoagulation. Chest x-ray today shows bilateral pigtail chest tubes in place and tiny right apical pneumothorax (R pigtail was placed by radiology). Patient remains encephalopathy despite being off sedation 05/01: Remains in normal sinus rhythm, rate controlled, on IV Cardizem and IV amiodarone. Patient remains encephalopathy, but more spontaneous eye opening. Lovenox change to IV heparin due to worsening renal failure. Also IV Bumex held due to increasing creatinine 05/02: Remains intubated, off sedation. More awake. Weakly following x4. UO 800 ml in 24 hours. Give 2 mg IV Bumex. Change Amio to PO 05/03: Continues to spike high fever 102.5. CXR despite bilateral chest tube and 1.6L output in 24 hours shows R> L consolidation/effusion. Creat worsening. Will hold Diuretics. Send sputum and blood cultures, give single dose of vanc and cefepime. D/W Dr. Gonzalez. Hb 6.9, will give 1U PRBC. Platelet count steadily improving 94 today 05/04: Continues to spike fever 101.5. Not tolerating CPAP. Back to Afib with RVR. Chest tube output 1.3L combined. Creat 2.5, UO 580 ml in 24 hours. Consult nephrology. Doubt successful vent weaning without trach. Will also consult nephrology 05/05: Remains on Cardizem and amiodarone infusions for atrial fibrillation, remains also on IV heparin. Hemoglobin has dropped to 7.1 I will give 1 unit PRBC transfusion. Chest x-ray unchanged. Bilateral chest tubes with 1.5 mg in 24 hours. Creatinine worsening to 2.8 urine output is 900 mL in 24 hours. Nephrology consulted and they have started Bumex 2 mg IV every 12 05/06: Extubated yesterday but had to be reintubated due to lack of airway protection and hypoxemia around 2 AM today. Creatinine is worsening 3.4 today urine output decreasing 750 mL in 24 hours. Discussed with nephrology Dr. Garcia- recommends Bumex gtt 2 mg per hour for 24 hours, and start dialysis if significant fluid cannot be achieved. Chest x-ray shows persistent bilateral effusions despite chest tube and scheduled Bumex. Overall prognosis is poor, family arriving to [facility] next week. Neurologically patient is following commands with bilateral upper extremities 05/07 Creatinine worsening and worsening oliguria despite Bumex drip with urine output only 250 mLs last 24 hour. Afebrile. In sinus rhythm rate in 50s. Discontinuing amiodarone drip. Moves hands and toes bilaterally to command 05/08 Oliguric with urine output 125 last 24 hours. Creatinine continues to increase to 4.26. Potassium is 5.4 today. It is inevitable that patient will need dialysis but family is hoping to wait on decision until they are able to meet together tomorrow morning as they are also placing consideration toward hospice. They are aware decision could be made to start dialysis and that it could be stopped at a later point if desired. They are aware potassium could increase and decision may need to be made urgently. Medically treating hyperkalemia and will assess response. Subjective: 05/09 Renal function continues to worsen. Cr 4.81, potassium 5.2 with medical treatment. Family meeting today and son would like to hold off on dialysis. He is considering hospice care. He does want to continue full code status. Objective Vital Signs Date Time Temp Pulse Resp B/P (MAP) Pulse Ox O2 Delivery O2 Flow Rate FiO2 05/09/17 20:14 99 60 05/09/17 18:00 61 05/09/17 17:00 28 113/56 (75) 05/09/17 16:00 98.8 05/07/17 07:00 Mechanical Ventilator 05/05/17 20:22 15.00 Intake and Output 05/09/17 05/09/17 05/10/17 08:00 16:00 00:00 Intake Total 1606 ml 1527 ml Output Total 900 ml 1583 ml Balance 706 ml -56 ml Result Diagram: 05/09/1731605/09/17 0317 Imaging Last Impressions Chest X-Ray 04/27/17 0600 Signed Impressions: Service Date/Time: Thursday, April 27, 2017 04:29 - CONCLUSION: Overall stable appearance of the chest. Watson Bermeo MD Upper Extremity Ultrasound 04/23/17 0000 Signed Impressions: Service Date/Time: Sunday, April 23, 2017 10:50 - CONCLUSION: DVT in the right upper extremity seen in the right basilic vein. There is also superficial thrombus in the right cephalic vein. Mushtaq Brown MD Cyst Biopsy Asp-Paracentesis US 04/21/17 0000 Signed Impressions: Service Date/Time: April 11:07 - CONCLUSION: Uncomplicated ultrasound guided paracentesis. Please note that the fluid throughout the abdomen is extremely complex with septations. This can be seen when the fluid has become infected or is complicated by hemorrhage or malignancy. Mushtaq Alexis MD Abdomen/Pelvis CT 04/20/17 0000 Signed Impressions: Service Date/Time: Thursday, April 20, 2017 13:56 - CONCLUSION: 1. Moderate volume free fluid in the abdomen and pelvis with possible associated peritoneal thickening. Thickening of the peritoneal lining can be seen with infection. 2. Large right and moderate size left pleural effusion with associated compressive atelectasis. 3. There is an umbilical hernia containing fluid and fat and fluid containing hernia superior and to the left of the umbilicus. This hernia also contains a portion of the transverse colon. 4. Nonacute findings include changes related to chronic liver disease including recanalized paraumbilical vein and bilateral gynecomastia. 5. Other nonacute findings include cholelithiasis and moderate atherosclerotic disease. Mushtaq Alexis MD Objective Remarks Drips: Fentanyl 200 g per hour Heparin drip Bumex 2 mg per hour Sodium bicarbonate 150 mEq per liter at 50 mL per hour GENERAL: 57-year-old critically ill male, intubated SKIN: Warm/dry. No rash; well perfused. Ecchymosis bilateral upper and lower extremities HEAD: Atraumatic. Normocephalic. EYES: Rolls eyes up when retract eyelid so difficult to see, but pupils appear 3 mm reactive. ENT: No nasal bleeding or discharge. Orotracheally intubated NECK: Trachea midline. CARDIOVASCULAR: Sinus rhythm, rate in the 50s on the monitor S1, S2. No S4. No rub. Systolic murmur LSB 10/25 RESPIRATORY: Air entry diminished bilateral lower lung tate. Coarse bilateral breath sounds worse on the right. Bilateral chest tubes in place with no air leak, serous output Right 700, Left 450 output last 24 hours. GASTROINTESTINAL: Abdomen distended large ventral hernia. Hypoactive bowel sounds. Tolerating tube feeds : Palmer catheter in place MUSCULOSKELETAL: 1+ edema bilateral lower extremity/anasarca, 2+ BUE. NEUROLOGICAL: Intubated. Spontaneous eye opening intermittently. WEak withdrawal toes and hands, 3/5 Procedures Paracentesis Thoracentesis Right pigtail chest tube placement Date of Insertion: Apr 25, 2017 A/P Assessment and Plan Neuro/Psych Metabolic encephalopathy Hx of ETOH abuse History of central pontine myelinolysis with quadriparesis --Metabolic encephalopathy secondary to sepsis --Spontaneous eye opening, following commands x4 very weakly yesterday, now more sedated on fentanyl due to patient discomfort. --On fentanyl gtt , oxycodone 5 every 6 not being administered by nursing. --MRI brain 04/29 shows resolution of previous osmotic demyelination syndrome -On rifaximin. Last ammonia level 06/06 was normal at 28 CVS Atrial fibrillation with RVR -- IV heparin. Previously on Cardizem infusion for Afib rate control, dc'd . . Now sinus rate in 50s on po cardizem 60 mg PO q6hr. Discontinued amiodarone drip 05/07. -- Holding Amio 200 mg daily 05/02. Given Digoxin 0.5 mg x1 05/05 -- metoprolol 25 q8 with hold orders -- 2d Echo no evidence of endocarditis, normal ejection fraction 60%. Trace MR. Moderate TR. -- IV albumin 25 g every 8 hours. Bumex drip 2 mg per hour Pulmonary Acute hypoxemic respiratory failure Bilateral pigtail chest tubes for large pleural effusions Probable HCAP and ARDS - Status post right thoracentesis and 2 L fluid removed with IV albumin infusing 04/25 - Patient developed reexpansion pulmonary edema after thoracentesis - Intubated 04/25 ACV ventilation 18/500/10/40. extubated 05/05, but reintubated am due to poor airway protection, weak cough, hypoxemia. - s/p R pigtail CT 04/28 placed by IR, tiny R apical pneumothorax-now resolved - s/p left chest tube placement 04/29 . Still with high ct output bilaterally. -Chest tube output remains high, will remain. - Ventilator bundle. - DuoNeb every 6 hours with albuterol aerosols every 2 when necessary - Previous tracheostomy status post decannulation 2015 - Will need trach again due to anticipated prolonged vent support, if family want to continue aggressive care. Failed trial of extubation after ~ 10 hours. - Palliative care and I discussed with family today. - Once family has decided about tracheostomy, consult general surgery due to previous trach GI Spontaneous bacterial peritonitis with MSSA Hepatic cirrhosis secondary to ETOH abuse and Hepatitis C genotype IIIa Protein calorie malnutrition/moderate Ascitesmoderate -- Prior U/S guided paracentesis 04/21/17, fluid was loculated and septated -- Exudative fluid growing MSSA indicating peritonitis -- Antibiotics per ID -- Status post paracentesis 04/28 300 cc removed. -- Continue Jevity 1.5 goal 60 cc an hour per nutrition recommendations. Pantoprazole for GI prophylaxis -- Outpatient workup/treatment for hepatitis C genotype IIIa - [id number] iu per milliliter -- Need PEG for correction feeding, family will make decisions. Likely needs general surgery for placement due to large ventral hernia. Renal Acute hyperkalemia Acute kidney injury -- Palmer catheter in place to monitor I/Os in critically ill patient --Creatinine continues to increase and oliguric despite Bumex drip. Discussed with nephrology, Dr. Hale and Jose who do not feel patient is a good candidate for hemodialysis due to cirrhosis multiorgan dysfunction and overall prognosis but would proceed with HD if family desires. Patient's son has requested to hold off on dialysis as he and family are strongly considering hospice. . Treated hyperkalemia with insulin 10 units IV, dextrose, bicarbonate 2 A, bicarbonate infusion -- Chest x-ray shows persistent bilateral effusions despite chest tube and scheduled Bumex Endocrine/FEN: Hypokalemia (resolved) Hypophosphatemia (resolved) Hypo-magnesium -- Electrolyte replacement protocol as needed Heme Anemia Coagulopathy Thrombocytopenia Right upper extremity superficial thrombosis basilic/cephalic veins -- Anemia, and coagulopathy most likely secondary to chronic liver disease / ETOH use, severe sepsis and consumptive from thrombophlebitis -- HIT negative -- Transfuse 1U PRBC 05/05. Subsequent hemoglobin stable stool for Hemoccult + ve. Platelet count continues to improve with likely consumptive secondary to thrombophlebitis/sepsis -- Heparin gtt ID: MSSA bacteremia Spontaneous bacterial peritonitis -- Pertinent cultures: - Blood 04/20: 3/4 bottles MSSA - Ascitic fluid 04/21: MSSA - Cultures from 05/02 neg to date Antibiotics per ID. 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 Discussed with Dr. Garcia, nephrology 05/07-05/08 Patient's son updated regarding progressive renal failure and now hyperkalemia. Patient's son would like to hold off on dialysis at this point unless it is emergent as he is hopeful for family to make joint decision regarding goals of care after discussion with palliative care medicine. He is aware that a decision may need to be made more urgently and states he would be willing to pursue dialysis if it was emergent. 05/09 Palliative met with family and I met with family. Son states he would like to hold off on HD. States likely to transition to hospice but family has not made final decision. After discussion between family today, desires continue FULL CODE. Level III Domitila Larios MD May 09, 2017 20:32
[2017-05-09 23:16] LABS: APTT (PATIENT) 67.9 SEC (24.3-30.1)
[2017-05-10] VITALS (21 sets, daily range): BP systolic 99–126; BP diastolic 50–63; PULSE 55–71; RESP 14–41; TEMP 97.8–98.5; O2SAT 76–100
[2017-05-10] MEDS: DILTIAZEM HCL 60 MG TAB PO SCH ×3 (00:23→11:09)
[2017-05-10] MEDS: METOPROLOL TARTRATE 50 MG TAB PO SCH ×2 (00:23→09:02)
[2017-05-10] MEDS: SODIUM BICARBONATE 8.4% INJ 150 MEQ in WATER STERILE FOR INJ 850 ML IV SCH (00:58)
[2017-05-10] MEDS: ALBUMIN HUMAN 5% 25 GM/500 ML BOTTLE IV SCH ×2 (01:04→09:03)
[2017-05-10 08:27] LABS: AUTOMATED NEUTROPHIL # 7.1 TH/MM3 (1.8-7.7); BASOPHIL % 0.6 % (0.0-2.0); EOSINOPHIL % 0.3 % (0.0-4.0); HEMATOCRIT 24.1 % (39.0-51.0); HEMO FLAGS DIFF FINAL; LYMPH % 5.5 % (9.0-44.0); LYMPHOCYTE # 0.4 TH/MM3 (1.0-4.8); MEAN CELL VOLUME 87.7 FL (80.0-100.0); MEAN CORPUSCULAR HEMOGLOBIN 28.5 PG (27.0-34.0); MEAN CORPUSCULAR HGB CONC 32.4 % (32.0-36.0); MONO % 7.1 % (0.0-8.0); NEUT % 86.5 % (16.0-70.0); PLATELET COUNT 178 TH/MM3 (150-450); RED BLOOD COUNT 2.74 MIL/MM3 (4.50-5.90); RED CELL DISTRIBUTION WIDTH 21.7 % (11.6-17.2); WHITE BLOOD COUNT 8.2 TH/MM3 (4.0-11.0)
[2017-05-10 08:28] LABS: APTT (PATIENT) 62.3 SEC (24.3-30.1)
[2017-05-10 08:52] LABS: BICARBONATE 16.8 MEQ/L (21.0-32.0); POTASSIUM 5.5 MEQ/L (3.5-5.1)
[2017-05-10] MEDS: POTASSIUM CHLORIDE 20 MEQ PWD PACKET NG SCH (09:00)
[2017-05-10] MEDS: LACTULOSE SYRUP 20 GM/30 ML CUP PO SCH (09:02)
[2017-05-10] MEDS: ARTIFICIAL TEARS OPTH OINT 3.5 APPLIC/3.5 GM TUBO EACH EYE SCH (09:02)
[2017-05-10] MEDS: MAGNESIUM OXIDE 400 MG TAB PO SCH (09:02)
[2017-05-10] MEDS: PANTOPRAZOLE SODIUM 40 MG VIAL IV PUSH SCH (09:02)
[2017-05-10] MEDS: RIFAXIMIN 550 MG TAB PO SCH (09:03)
[2017-05-10] MEDS: CHLORHEXIDINE 0.12% (ORAL KIT) 15 ML CUP MT SCH (09:04)
--- NOTE | 2017-05-10 09:30 | HHI.IDPN ---
Subjective Subjective Remarks ID [id number] Mr. Forrest is a 56 year old male patient with cirrhosis, osteoarthritis, atrial fibrillation, hypertension, GERD, sleep apnea, central pontine myelinolysis, EtOH abuse and ascites requiring paracentesis who presented to [facility] ED on 04/20/2017 for evaluation of decreased oral intake and abdominal distention with ascites. Patient had associated left abdominal pain near hernia site. No history of vomiting, having diarrhea (dark in color) for 1 day. Patient's significant other reported he had been declining for 2 weeks and had not been eating or drinking for 2-3 days. Upon presentation to the ED, the patient was tachycardic. An EKG showed atrial fibrillation with RVR; patient is not on anticoagulation therapy. Patient was evaluated in the ED and the suspicion for sepsis. His WBC count was 15.2, platelets 256. His sodium was 133, lactic acid 2.8 and creatinine 1.25. Blood culture drawn on admission is now positive for methicillin sensitive staph aureus as documented by verigene testing. Chest x-ray shows left lower lobe consolidation and pleural effusion. A CT abdomen and pelvis showed moderate volume free fluid associated with peritoneal thickening as well as possible loculations. The patient was started on IV antibiotics and fluids per sepsis protocol. Patient's heart rate remained elevated, maintaining blood pressure, on Cardizem drip. Patient was admitted to CICU for further evaluation and medical management. A CT-guided abdominal ultrasound with paracentesis was completed on 04/21/2017 for ascites with a total of 650 cc of clear, yellow [place]. [place] [address]; peritoneal RBC elevated at 411. Cytology pending. Cardiology consulted for A. fib with RVR on 04/21/2017. GI is following. Per EMR, patient has a history of GI bleed in 2015 secondary to portal hypertension gastropathy; patient had an EGD at that time. Hepatitis C quantitative and genotype pending. Notes reviewed D/W RN Afebrile Awake on the vent Looks comfortable today UO still only 200-250 ml/24H Creatinine continues to rise Family deciding on goals of care 2 CT with good output Has liquid stool, volume increased last 24 hours BP ok Antibiotics Cefepime IV Lines PIV Past Medical History Reviewed Allergies: Coded Allergies: No Known Allergies (Unverified , 12/06/16) Objective . Vital Signs Date Time Temp Pulse Resp B/P (MAP) Pulse Ox O2 Delivery O2 Flow Rate FiO2 8/22/17 08:31 98 45 05/10/17 06:00 63 05/10/17 04:13 97 60 05/10/17 04:00 60 05/10/17 04:00 64 05/10/17 04:00 97.9 64 16 99/57 (71) 97 05/10/17 02:00 64 05/10/17 00:00 98.5 55 18 100/52 (68) 98 05/10/17 00:00 55 05/10/17 00:00 60 05/09/17 23:50 98 60 05/09/17 22:00 55 05/09/17 20:14 99 60 05/09/17 20:00 98.7 57 16 93/49 (64) 100 05/09/17 20:00 60 05/09/17 20:00 57 05/09/17 18:00 61 05/09/17 17:00 69 28 113/56 (75) 96 05/09/17 17:00 69 05/09/17 16:31 70 05/09/17 16:31 70 22 121/55 (77) 94 05/09/17 16:04 97 50 05/09/17 16:00 70 05/09/17 16:00 50 05/09/17 16:00 98.8 70 25 115/55 (75) 93 05/09/17 15:35 68 20 126/62 (83) 92 05/09/17 15:35 68 05/09/17 15:00 69 05/09/17 15:00 69 29 117/58 (77) 93 05/09/17 14:31 71 05/09/17 14:31 71 33 121/58 (79) 95 05/09/17 14:01 71 05/09/17 14:00 71 05/09/17 14:00 71 34 132/60 (84) 96 05/09/17 13:31 69 05/09/17 13:31 69 39 115/58 (77) 95 05/09/17 13:01 68 05/09/17 13:00 68 30 126/61 (82) 95 05/09/17 13:00 68 05/09/17 12:30 70 05/09/17 12:30 70 33 112/71 (85) 94 05/09/17 12:00 69 05/09/17 12:00 99.2 69 19 114/56 (75) 100 05/09/17 12:00 50 05/09/17 11:30 69 05/09/17 11:30 69 17 114/55 (74) 100 05/09/17 11:00 71 05/09/17 11:00 71 19 124/58 (80) 97 05/09/17 10:51 99 70 05/09/17 10:30 70 05/09/17 10:30 73 19 116/67 (83) 99 05/09/17 10:30 73 05/09/17 10:00 69 22 90 05/09/17 10:00 69 05/09/17 09:30 64 40 121/59 (79) 95 05/09/17 09:30 64 . Laboratory Tests Test 05/09/17 03:17 05/10/17 08:02 White Blood Count 7.6 TH/MM3 8.2 TH/MM3 Red Blood Count 2.69 MIL/MM3 2.74 MIL/MM3 Hemoglobin 7.7 GM/DL 7.8 GM/DL Hematocrit 23.5 % 24.1 % Mean Corpuscular Volume 87.2 FL 87.7 FL Mean Corpuscular Hemoglobin 28.6 PG 28.5 PG Mean Corpuscular Hemoglobin Concent 32.8 % 32.4 % Red Cell Distribution Width 20.6 % 21.7 % Platelet Count 207 TH/MM3 178 TH/MM3 Mean Platelet Volume 9.4 FL 8.7 FL Neutrophils (%) (Auto) 77.8 % 86.5 % Lymphocytes (%) (Auto) 6.8 % 5.5 % Monocytes (%) (Auto) 9.2 % 7.1 % Eosinophils (%) (Auto) 1.4 % 0.3 % Basophils (%) (Auto) 4.8 % 0.6 % Neutrophils # (Auto) 5.9 TH/MM3 7.1 TH/MM3 Lymphocytes # (Auto) 0.5 TH/MM3 0.4 TH/MM3 Monocytes # (Auto) 0.7 TH/MM3 0.6 TH/MM3 Eosinophils # (Auto) 0.1 TH/MM3 0.0 TH/MM3 Basophils # (Auto) 0.4 TH/MM3 0.0 TH/MM3 CBC Comment DIFF FINAL DIFF FINAL Differential Comment Laboratory Tests Test 05/08/17 13:55 05/09/17 03:17 05/10/17 08:02 Blood Urea Nitrogen 79 MG/DL 81 MG/DL 88 MG/DL Creatinine 4.69 MG/DL 4.81 MG/DL 5.34 MG/DL Random Glucose 143 MG/DL 130 MG/DL 103 MG/DL Calcium Level 8.7 MG/DL 8.4 MG/DL 8.6 MG/DL Sodium Level 138 MEQ/L 135 MEQ/L 137 MEQ/L Potassium Level 5.3 MEQ/L 5.2 MEQ/L 5.5 MEQ/L Chloride Level 108 MEQ/L 105 MEQ/L 104 MEQ/L Carbon Dioxide Level 19.1 MEQ/L 18.9 MEQ/L 16.8 MEQ/L Anion Gap 11 MEQ/L 11 MEQ/L 16 MEQ/L Estimat Glomerular Filtration Rate 13 ML/MIN 12 ML/MIN 11 ML/MIN Phosphorus Level 4.7 MG/DL Imaging Chest X-Ray 05/06/17 0000 Signed Impressions: Service Date/Time: Saturday, May 06, 2017 02:51 - CONCLUSION: 1. Right- sided [place] loop thoracostomy tubes are stable in position. Worsening left-sided effusion and persistent right-sided effusion. 2. Bilateral airspace disease, right greater than left. These appear worse when compared to the prior exam. 3. Interval removal of the nasogastric tube. Endotracheal tube remains appropriately positioned above the adelita. Antonio Lopez MD Chest X-Ray 05/05/17 0600 Signed Impressions: Service Date/Time: April 04:04 - CONCLUSION: Stable bilateral partially consolidated infiltrates. Kwaku Haro MD Chest X-Ray 05/04/17 0600 Signed Impressions: Service Date/Time: Thursday, May 04, 2017 04:40 - CONCLUSION: Stable bilateral infiltrates, right greater than left. Kwaku Haro MD Chest X-Ray 04/30/17 0600 Signed Impressions: Service Date/Time: Sunday, April 30, 2017 03:45 - CONCLUSION: 1. Tiny right apical pneumothorax. 2. No pneumothorax on the left. 3. Minimal bilateral airspace disease. Charlie Claudio MD Brain MRI 04/29/17 0000 Signed Impressions: Service Date/Time: Saturday, April 29, 2017 10:08 - CONCLUSION: 1. No evidence of acute infarct, hemorrhage, mass or edema. 2. No evidence of pontine myelinolysis. 3. 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 Escobar Antony MD Chest Tube Insertion 04/28/17 1555 Signed Impressions: Service Date/Time: April 15:51 - CONCLUSION: Uncomplicated chest tube placement as above. Escobar Antony MD Chest CT 04/28/17 0000 Signed Impressions: Service Date/Time: April 15:51 - CONCLUSION: 1. Bilateral pleural effusions as described. 2. Extensive patchy consolidating infiltrates both lungs. 3. Cardiomegaly. 4. Ascites. Escobar Antony MD Abdomen X-Ray 04/28/17 0000 Signed Impressions: Service Date/Time: , April 28, 2017 11:21 - CONCLUSION: Nonspecific bowel gas pattern with some mild gaseous distention of the colon. There is an NG tube in stomach. Srinivasan Ivory MD Upper Extremity Ultrasound 04/23/17 Signed Impressions: Service Date/Time: Sunday, April 23, 2017 10:50 - CONCLUSION: DVT in the right upper extremity seen in the right basilic vein. There is also superficial thrombus in the right cephalic vein. Mushtaq Brown MD Cyst Biopsy Asp-Paracentesis US 04/21/17 0000 Signed Impressions: Service Date/Time: April 11:07 - CONCLUSION: Uncomplicated ultrasound guided paracentesis. Please note that the fluid throughout the abdomen is extremely complex with septations. This can be seen when the fluid has become infected or is complicated by hemorrhage or malignancy. Mushtaq Alexis MD Abdomen/Pelvis CT 04/20/17 Signed Impressions: Service Date/Time: Thursday, April 20, 2017 13:56 - CONCLUSION: 1. Moderate volume free fluid in the abdomen and pelvis with possible associated peritoneal thickening. Thickening of the peritoneal lining can be seen with infection. 2. Large right and moderate size left pleural effusion with associated compressive atelectasis. 3. There is an umbilical hernia containing fluid and fat and fluid containing hernia superior and to the left of the umbilicus. This hernia also contains a portion of the transverse colon. 4. Nonacute findings include changes related to chronic liver disease including recanalized paraumbilical vein and bilateral gynecomastia. 5. Other nonacute findings include cholelithiasis and moderate atherosclerotic disease. Mushtaq Alexis MD Physical Exam GENERAL: Opens eyes, comfortable on the vent SKIN: Dry, purpuric areas in BUE, weeping HEAD: Atraumatic. Normocephalic. No temporal or scalp tenderness. EYES: Pupils equal round and reactive. No scleral icterus. No injection or drainage. ENT: Nose without bleeding, purulent drainage. Orally intubated NECK: Trachea midline. Supple, nontender, no meningeal signs. CARDIOVASCULAR: Irregular SiS2, tachycardic, no rub RESPIRATORY: Coarse BS, bi CT in pace with serous output, decreased BS R base GASTROINTESTINAL: Abdomen tensely distended, tender on palpation, tympanitic on percussion. At site of prior PEG tube there is a large balloting hernia. MUSCULOSKELETAL: Extremities without clubbing, cyanosis. No embolic lesions. Has saumya pitting edema NEUROLOGICAL: Awake Psych: unable to assess IV line sites with no e.o infection. : Palmer in place, with sediment Assessment & Plan Remarks MSSA sepsis, source, ?endocarditis, ?loculated ascites. Pneumonia ? septic emboli. Not an aspiration risk. ESLD with ascites. S/P paracentesis, fluid exudative, loculated. Peritonitis MSSA. SBP, MSSA Hypotension ? hypoalbuminemia ? sepsis related. - BP better not on pressors Atrial fib with RVR Respiratory failure, reintubated; - fluid overload, b/l effusions sp bl CT - no e/o empyema - worsening infiltrates likely due to worsening renal function Acute renal failure: diuretics, antibiotics ? Acute thrombocytopenia: ? ESLD, ? HIT, ? sepsis. PLAN Change Cefepime back to Ancef - has received at least 7 days total Monitor progress Monitor tem Family meeting to determine goals of treatment D/W Nichole Benjamin MD May 10, 2017 09:30
[2017-05-10] MEDS: fentaNYL DRIP 250 ML IV SCH (09:37)
--- NOTE | 2017-05-10 09:38 | HHI.GIFU ---
Subjective Remarks Sedated on vent. No distress. Palliative care met with family yesterday and is considering hospice care. (Megan Orellana) Objective Vitals I&O Vital Signs Date Time Temp Pulse Resp B/P (MAP) Pulse Ox O2 Delivery O2 Flow Rate FiO2 05/10/17 08:31 98 45 05/10/17 06:00 63 05/10/17 04:13 97 60 05/10/17 04:00 60 05/10/17 04:00 64 05/10/17 04:00 97.9 64 16 99/57 (71) 97 05/10/17 02:00 64 05/10/17 00:00 98.5 55 18 100/52 (68) 98 05/10/17 00:00 55 05/10/17 00:00 60 05/09/17 23:50 98 60 05/09/17 22:00 55 05/09/17 20:14 99 60 05/09/17 20:00 98.7 57 16 93/49 (64) 100 05/09/17 20:00 60 05/09/17 20:00 57 05/09/17 18:00 61 05/09/17 17:00 69 28 113/56 (75) 96 05/09/17 17:00 69 05/09/17 16:31 70 05/09/17 16:31 70 22 121/55 (77) 94 05/09/17 16:04 97 50 05/09/17 16:00 70 05/09/17 16:00 50 05/09/17 16:00 98.8 70 25 115/55 (75) 93 05/09/17 15:35 68 20 126/62 (83) 92 05/09/17 15:35 68 05/09/17 15:00 69 05/09/17 15:00 69 29 117/58 (77) 93 05/09/17 14:31 71 05/09/17 14:31 71 33 121/58 (79) 95 05/09/17 14:01 71 05/09/17 14:00 71 05/09/17 14:00 71 34 132/60 (84) 96 05/09/17 13:31 69 05/09/17 13:31 69 39 115/58 (77) 95 05/09/17 13:01 68 05/09/17 13:00 68 30 126/61 (82) 95 05/09/17 13:00 68 05/09/17 12:30 70 05/09/17 12:30 70 33 112/71 (85) 94 05/09/17 12:00 69 05/09/17 12:00 99.2 69 19 114/56 (75) 100 05/09/17 12:00 50 05/09/17 11:30 69 05/09/17 11:30 69 17 114/55 (74) 100 05/09/17 11:00 71 05/09/17 11:00 71 19 124/58 (80) 97 05/09/17 10:51 99 70 05/09/17 10:30 70 05/09/17 10:30 73 19 116/67 (83) 99 05/09/17 10:30 73 05/09/17 10:00 69 22 90 05/09/17 10:00 69 05/09/17 09:30 64 40 121/59 (79) 95 05/09/17 09:30 64 I/O 05/09/17 05/09/17 05/09/17 05/10/17 05/10/17 05/10/17 07:00 15:00 23:00 07:00 15:00 23:00 Intake Total 1606 ml 1527 ml 1352 ml Output Total 900 ml 1583 ml 1195 ml Balance 706 ml -56 ml 157 ml IV Total 673 ml 907 ml 1252 ml Tube Feeding 733 ml 0 ml Albumin 500 ml Tube Irrigant 100 ml Other 200 ml 120 ml Output Urine Total 100 ml 175 ml 75 ml Stool Total 950 ml 900 ml Chest Tube Drainage Total 800 ml 458 ml 220 ml Laboratory Laboratory Tests Test 05/09/17 14:50 05/09/17 22:24 05/10/17 08:02 Activated Partial Thromboplast Time 81.8 67.9 62.3 White Blood Count 8.2 Red Blood Count 2.74 Hemoglobin 7.8 Hematocrit 24.1 Mean Corpuscular Volume 87.7 Mean Corpuscular Hemoglobin 28.5 Mean Corpuscular Hemoglobin Concent 32.4 Red Cell Distribution Width 21.7 Platelet Count 178 Mean Platelet Volume 8.7 Neutrophils (%) (Auto) 86.5 Lymphocytes (%) (Auto) 5.5 Monocytes (%) (Auto) 7.1 Eosinophils (%) (Auto) 0.3 Basophils (%) (Auto) 0.6 Neutrophils # (Auto) 7.1 Lymphocytes # (Auto) 0.4 Monocytes # (Auto) 0.6 Eosinophils # (Auto) 0.0 Basophils # (Auto) 0.0 CBC Comment DIFF FINAL Differential Comment Blood Urea Nitrogen 88 Creatinine 5.34 Random Glucose 103 Calcium Level 8.6 Sodium Level 137 Potassium Level 5.5 Chloride Level 104 Carbon Dioxide Level 16.8 Anion Gap 16 Estimat Glomerular Filtration Rate 11 Date/Time Source Procedure Growth Status 05/03/17 19:22 Blood Peripheral Aerobic Blood Culture - Final NO GROWTH IN 5 DAYS Complete 05/03/17 19:22 Blood Peripheral Anaerobic Blood Culture - Final NO GROWTH IN 5 DAYS Complete 04/29/17 13:00 Fluid Pleural Fluid Fungal Smear - Final NO FUNGAL ELEMENTS SEEN. Resulted 04/29/17 13:00 Fluid Pleural Fluid Fungal Culture - Preliminary NO GROWTH IN 1 WEEK Resulted 05/03/17 11:40 Stool Stool Stool Occult Blood (BARBARA) - Final HEMOCCULT POSITIVE Complete 05/03/17 13:55 Sputum Endotracheal Gram Stain - Final Complete 05/03/17 13:55 Sputum Endotracheal Sputum Culture - Final HEAVY GROWTH NORMAL RESPIRATORY PRAVIN Complete 05/02/17 17:22 Urine Catheterized Urine Urine Culture - Final NO GROWTH IN 48 HOURS. Complete Imaging Last Impressions Chest X-Ray 05/06/17 0000 Signed Impressions: Service Date/Time: Saturday, May 06, 2017 02:51 - CONCLUSION: 1. Right- sided [place] loop thoracostomy tubes are stable in position. Worsening left-sided effusion and persistent right-sided effusion. 2. Bilateral airspace disease, right greater than left. These appear worse when compared to the prior exam. 3. Interval removal of the nasogastric tube. Endotracheal tube remains appropriately positioned above the daelita. Antonio Lopez MD Lower Extremity Ultrasound 05/02/17 0000 Signed Impressions: Service Date/Time: Tuesday, May 02, 2017 22:03 - CONCLUSION: The study is negative for deep venous thrombosis bilateral lower extremity. Kwaku Haro MD Brain MRI 04/29/17 0000 Signed Impressions: Service Date/Time: Saturday, April 29, 2017 10:08 - CONCLUSION: 1. No evidence of acute infarct, hemorrhage, mass or edema. 2. No evidence of pontine myelinolysis. 3. 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 Escobar Antony MD Chest Tube Insertion 04/28/17 1555 Signed Impressions: Service Date/Time: April 15:51 - CONCLUSION: Uncomplicated chest tube placement as above. Escobar Antony MD Chest CT 04/28/17 0000 Signed Impressions: Service Date/Time: April 15:51 - CONCLUSION: 1. Bilateral pleural effusions as described. 2. Extensive patchy consolidating infiltrates both lungs. 3. Cardiomegaly. 4. Ascites. Escobar Antony MD Abdomen X-Ray 04/28/17 0000 Signed Impressions: Service Date/Time: April 11:21 - CONCLUSION: Nonspecific bowel gas pattern with some mild gaseous distention of the colon. There is an NG tube in stomach. Srinivasan Ivory MD Upper Extremity Ultrasound 04/23/17 0000 Signed Impressions: Service Date/Time: Sunday, April 23, 2017 10:50 - CONCLUSION: DVT in the right upper extremity seen in the right basilic vein. There is also superficial thrombus in the right cephalic vein. Mushtaq Brown MD Cyst Biopsy Asp-Paracentesis US 04/21/17 0000 Signed Impressions: Service Date/Time: April 11:07 - CONCLUSION: Uncomplicated ultrasound guided paracentesis. Please note that the fluid throughout the abdomen is extremely complex with septations. This can be seen when the fluid has become infected or is complicated by hemorrhage or malignancy. Mushtaq Alexis MD Abdomen/Pelvis CT 04/20/17 0000 Signed Impressions: Service Date/Time: Thursday, April 20, 2017 13:56 - CONCLUSION: 1. Moderate volume free fluid in the abdomen and pelvis with possible associated peritoneal thickening. Thickening of the peritoneal lining can be seen with infection. 2. Large right and moderate size left pleural effusion with associated compressive atelectasis. 3. There is an umbilical hernia containing fluid and fat and fluid containing hernia superior and to the left of the umbilicus. This hernia also contains a portion of the transverse colon. 4. Nonacute findings include changes related to chronic liver disease including recanalized paraumbilical vein and bilateral gynecomastia. 5. Other nonacute findings include cholelithiasis and moderate atherosclerotic disease. Mushtaq Alexis MD Physical Exam HEENT: Normocephalic; atraumatic; no jaundice. Intubated CHEST: OETT to vent. Mildly labored. Course breath sounds. Bilateral chest tubes with serous drainage. CARDIAC: Irregular ABDOMEN: Semi-firm, distended with ascites, large ventral hernia and smaller umbilical hernia, nontender, hypoactive bowel sounds. EXT. Generalized edema SKIN: Ecchymosis at bilateral upper and lower extremities SECTION WEAVER: Sedated on vent (Megan Orellana) Assessment and Plan Plan ASSESSMENT - Ascites with SBP. S/P Cyst Biopsy Asp-Paracentesis US (04/21/17)----> Uncomplicated ultrasound guided paracentesis. Please note that the fluid throughout the abdomen is extremely complex with septations. This can be seen when the fluid has become infected or is complicated by hemorrhage or malignancy, 650cc removed. Cytology with numerous neutrophils and macrophages, negative for malignant cells. Cx with Staphylococcus aureus. Bedside paracentesis (04/28/17)----> 300cc removed, Cx with staphylococcus aureus. Ancef, Albumin. Bumex gtt per renal. - Liver cirrhosis. Abdomen/Pelvis CT (04/20/17)----> 1. Moderate volume free fluid in the abdomen and pelvis with possible associated peritoneal thickening. Thickening of the peritoneal lining can be seen with infection. 2. Large right and moderate size left pleural effusion with associated compressive atelectasis. 3. There is an umbilical hernia containing fluid and fat and fluid containing hernia superior and to the left of the umbilicus. This hernia also contains a portion of the transverse colon. 4. Nonacute findings include changes related to chronic liver disease including recanalized paraumbilical vein and bilateral gynecomastia. 5. Other nonacute findings include cholelithiasis and moderate atherosclerotic disease. Has Hepatitis C. MELD 31 from last INR available. His renal failure is affecting this score. - Abdominal distention. KUB (05/09/17)----> no dilated loops of bowel. (+) BM. Lactulose. This is likely more related to ascites. Getting albumin and on bumex gtt. Unable to add other diuretics secondary to worsening renal function. - Large ventral hernia, smaller umbilical hernia. Stable. - Anemia, normocytic. He does have hx UGIB in 2014 r/t portal hypertensive gastropathy, but no active bleeding at this time. S/P 1 unit PRBC. - Thrombocytopenia. Hematology following, likely related to abx/sepsis. Improving - Hx of hep-C- quant 22,500 - Right DVT on US, on heparin - Resp. failure, pleural effusin, PNA, on CPAP, bilateral chest tubes - Atrial fibrillation with RVR. Cardiology following. - Acute renal failure. Nephrology following. Bumex gtt PLAN - Okay to resume TF - Cont. Lactulose - Cont. Xifaxan - Cont. Albumin - Diuretics per renal, on Bumex gtt - Monitor HH, Plt - Transfuse as necessary - Supportive care - Further recommendations to follow based on results of above. - Pt with poor prognosis. Palliative care following and family considering hospice - Patient seen and examined by Dr. Cisneros and myself and this note is written on his behalf. (Megan Orellana) Physician Comments Agree with the plan as above, will schedule EGD today. Further recommendations to follow. (Cece Cisneros MD) Megan Orellana May 10, 2017 09:38 Cece Cisneros MD May 10, 2017 09:41
--- NOTE | 2017-05-10 10:17 | HHI.NPPN ---
Subjective General Problems: Anemia Renal Failure: Acute Interval History He remains intubated, unresponsive Renal function continues to decline. Spoke with son, WENDI. (Carolina Brandon) Review of Systems General General Remarks unable to evaluate (Carolina Brandon) Objective Data Data Vital Signs Date Time Temp Pulse Resp B/P (MAP) Pulse Ox O2 Delivery O2 Flow Rate FiO2 05/10/17 08:31 98 45 05/10/17 06:00 63 05/10/17 04:13 97 60 05/10/17 04:00 60 05/10/17 04:00 64 05/10/17 04:00 97.9 64 16 99/57 (71) 97 05/10/17 02:00 64 05/10/17 00:00 98.5 55 18 100/52 (68) 98 05/10/17 00:00 55 05/10/17 00:00 60 05/09/17 23:50 98 60 05/09/17 22:00 55 05/09/17 20:14 99 60 05/09/17 20:00 98.7 57 16 93/49 (64) 100 05/09/17 20:00 60 05/09/17 20:00 57 05/09/17 18:00 61 05/09/17 17:00 69 28 113/56 (75) 96 05/09/17 17:00 69 05/09/17 16:31 70 05/09/17 16:31 70 22 121/55 (77) 94 05/09/17 16:04 97 50 05/09/17 16:00 70 05/09/17 16:00 50 05/09/17 16:00 98.8 70 25 115/55 (75) 93 05/09/17 15:35 68 20 126/62 (83) 92 05/09/17 15:35 68 05/09/17 15:00 69 05/09/17 15:00 69 29 117/58 (77) 93 05/09/17 14:31 71 05/09/17 14:31 71 33 121/58 (79) 95 05/09/17 14:01 71 05/09/17 14:00 71 05/09/17 14:00 71 34 132/60 (84) 96 05/09/17 13:31 69 05/09/17 13:31 69 39 115/58 (77) 95 05/09/17 13:01 68 05/09/17 13:00 68 30 126/61 (82) 95 05/09/17 13:00 68 05/09/17 12:30 70 05/09/17 12:30 70 33 112/71 (85) 94 05/09/17 12:00 69 05/09/17 12:00 99.2 69 19 114/56 (75) 100 05/09/17 12:00 50 05/09/17 11:30 69 05/09/17 11:30 69 17 114/55 (74) 100 05/09/17 11:00 71 05/09/17 11:00 71 19 124/58 (80) 97 05/09/17 10:51 99 70 05/09/17 10:30 70 05/09/17 10:30 73 19 116/67 (83) 99 05/09/17 10:30 73 (Carolina Brandon) -: 05/10/17 0802 05/10/17 0802 Imaging Last Impressions Chest X-Ray 05/06/17 0000 Signed Impressions: Service Date/Time: Saturday, May 06, 2017 02:51 - CONCLUSION: 1. Right- sided [place] loop thoracostomy tubes are stable in position. Worsening left-sided effusion and persistent right-sided effusion. 2. Bilateral airspace disease, right greater than left. These appear worse when compared to the prior exam. 3. Interval removal of the nasogastric tube. Endotracheal tube remains appropriately positioned above the adelita. Antonio Lopez MD Lower Extremity Ultrasound 05/02/17 0000 Signed Impressions: Service Date/Time: Tuesday, May 02, 2017 22:03 - CONCLUSION: The study is negative for deep venous thrombosis bilateral lower extremity. Kwaku Haro MD Brain MRI 04/29/17 0000 Signed Impressions: Service Date/Time: Saturday, April 29, 2017 10:08 - CONCLUSION: 1. No evidence of acute infarct, hemorrhage, mass or edema. 2. No evidence of pontine myelinolysis. 3. 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 Escobar Antony MD Chest Tube Insertion 04/28/17 1555 Signed Impressions: Service Date/Time: April 15:51 - CONCLUSION: Uncomplicated chest tube placement as above. Escobar Antony MD Chest CT 04/28/17 0000 Signed Impressions: Service Date/Time: April 15:51 - CONCLUSION: 1. Bilateral pleural effusions as described. 2. Extensive patchy consolidating infiltrates both lungs. 3. Cardiomegaly. 4. Ascites. Escobar Antony MD Abdomen X-Ray 04/28/17 0000 Signed Impressions: Service Date/Time: April 11:21 - CONCLUSION: Nonspecific bowel gas pattern with some mild gaseous distention of the colon. There is an NG tube in stomach. Srinivasan Ivory MD Upper Extremity Ultrasound 04/23/17 0000 Signed Impressions: Service Date/Time: Sunday, April 23, 2017 10:50 - CONCLUSION: DVT in the right upper extremity seen in the right basilic vein. There is also superficial thrombus in the right cephalic vein. Mushtaq Brown MD Cyst Biopsy Asp-Paracentesis US 04/21/17 0000 Signed Impressions: Service Date/Time: April 11:07 - CONCLUSION: Uncomplicated ultrasound guided paracentesis. Please note that the fluid throughout the abdomen is extremely complex with septations. This can be seen when the fluid has become infected or is complicated by hemorrhage or malignancy. Mushtaq Alexis MD Abdomen/Pelvis CT 04/20/17 0000 Signed Impressions: Service Date/Time: Thursday, April 20, 2017 13:56 - CONCLUSION: 1. Moderate volume free fluid in the abdomen and pelvis with possible associated peritoneal thickening. Thickening of the peritoneal lining can be seen with infection. 2. Large right and moderate size left pleural effusion with associated compressive atelectasis. 3. There is an umbilical hernia containing fluid and fat and fluid containing hernia superior and to the left of the umbilicus. This hernia also contains a portion of the transverse colon. 4. Nonacute findings include changes related to chronic liver disease including recanalized paraumbilical vein and bilateral gynecomastia. 5. Other nonacute findings include cholelithiasis and moderate atherosclerotic disease. Mushtaq Alexis MD Tubes & Lines: Palmer Tubes & Lines Comment TLC, rectal tube, chest tube bilaterally Drip Comment heparin, fentanyl, bumex @ 2mg/hr, bicarbonate in sterile water (Carolina Brandon) Physical Exam General Appearance: No Acute Distress, Malnourished Appearance Remarks chronically ill, intubated, unresponsive (Carolina Brandon) Throat Throat Exam: Oral Mucosa [place] & Moist (Carolina Brandon) Pulmonary Resp Exam: Breath Sounds Equal, Crackles, Rhonchi, Sputum Resp Remarks intubated (Carolina Brandon) Cardiology CV Exam: Good Perfusion, Irregular, Tachycardia (Carolina BrandonP) Gastrointestinal/Abdomen GI Exam: Non-Tender, Bowel Sounds Present, Distended GI Remarks large ventral hernia is present (Carolina Brandon) Musculoskeletal MS Exam: Joints Intact, Normal Tone, Unable to Ambulate (Carolina Brandon) Integumentary Skin Exam: Warm, Dry Skin Remarks sacral ulcer, right arm with bruising (Carolina Brandon) Extremeties Extremities Exam: Moderate Edema, Pitting Edema, Dependent Edema Extremeties Remarks upper extremity edema persists, lower extremity edema improved (Carolina Brandon) Neurologic Neuro Exam: Unresponsive, Sedated (Carolina Brandon) VTE Prophylaxis Device: SCDs (Carolina Brandon) Assessment/Plan Assessment Summary: HILARY/Acute Renal Failure, Fluid/Volume Overload, Hypertension Problem List: (1) Acute renal failure ICD Codes: N17.9 - Acute kidney failure, unspecified Status: Acute Plan: In a patient with normal renal function on arrival HILARY may be due to hypoperfusion injury with likely progression to ATN renal function continues to decline urine output is minimal despite Bumex gtt at 2 mg/hr he is a poor candidate for renal replacement therapy, D/W son (POA), explained that dialysis will not change the outcome. He is still a full code with continued aggressive measures,however they DO NOT want us to start dialysis at this time. They will be in within a few hours to make a final decision regarding transition to comfort care. in the meantime continue current plan, await family decision treat hyperkalemia with dextrose and insulin repeat labs in AM (2) Bacterial peritonitis ICD Codes: K65.9 - Peritonitis, unspecified Status: Acute Plan: ID has evaluated MSSA, on cefepime monitor clinically he is on tube feeding through OG tube (3) Atrial fibrillation with RVR ICD Codes: I48.91 - Atrial fibrillation with rapid ventricular response Status: Acute Plan: with RVR, rate is normal on heparin for anticoagulation blood pressure is acceptable monitor (4) HTN (hypertension) ICD Codes: I10 - Essential (primary) hypertension Status: Chronic Plan: continue medications as ordered follow blood pressure (5) Anemia ICD Codes: D64.9 - Anemia, unspecified Status: Acute Plan: with coagulopathy, possibly related to liver disease he is Hemoccult positive follow Hb, currently low but stable (Carolina Brandon) Plan patient was seen and examined. Very poor prognosis. Discussed with Dr. Giudo. Dialysis will not change the outcome. Agree with above assessment and plan. Hospice is recommended. (Feng Garcia MD) Problem Qualifiers (1) Acute renal failure: Qualified Codes: N17.0 - Acute kidney failure with tubular necrosis Carolina Brandon May 10, 2017 10:17 Feng Garcia MD May 10, 2017 16:13
[2017-05-10] MEDS ORDERED: DEXTROSE 50% IN WATER 50 ML SYRINGE IV ONE (10:45)
[2017-05-10] MEDS ORDERED: INSULIN HUMAN REGULAR 1,000 UNITS/10 ML VIAL IV PUSH ONE ×2 (10:45→13:00)
[2017-05-10] MEDS ORDERED: CEFEPIME INJ 2,000 MG in SODIUM CHLORIDE 0.9% INJ 100 ML IV SCH (12:00)
[2017-05-10] MEDS ORDERED: CALCIUM GLUCONATE 10% 1 GM/10 ML VIAL SLOW IVP ONE (12:45)
[2017-05-10] MEDS ORDERED: DEXTROSE 50% IN WATER 50 ML VIAL(D50) IV PUSH ONE (12:45)
[2017-05-10] MEDS ORDERED: SODIUM BICARBONATE 8.4% SOLN 50 MEQ/50 ML VIAL SLOW IVP ONE (12:45)
[2017-05-10] MEDS ORDERED: SODIUM POLYSTYRENE SULFONATE SUSP 15 GM/60 ML CUP PO ONE (12:45)
--- NOTE | 2017-05-10 12:54 | HHI.CCPN ---
Subjective Remarks/Hospital Course History of Present Illness Mr. Forrest is a 56 year old male patient with cirrhosis secondary to hepatitis C and alcohol dependence, atrial fibrillation, hypertension, GERD, sleep apnea, history of central pontine myelinolysis,ascites requiring paracentesis who admitted to [facility] with on 04/20/2017 for evaluation of decreased oral intake, probable sepsis and ascites. An EKG on admission showed atrial fibrillation with RVR. His initial WBC count was 15K. Infectious disease was consulted and patient was placed on broad-spectrum antibiotic. Recently underwent paracentesis by IR on 04/21/17 with the fluid was described as loculated and septated. Fluid culture grew MSSA. 3 out of 4 blood cultures on 04/20/17 growing MSSA. For Atrial fibrillation with RVR patient was placed on Cardizem drip. Paracentesis on 04/21/2017 650 ccfluid removed. Peritoneal WBC - 98814; peritoneal RBC - 411. Patient had been receiving Ancef and vancomycin per ID recommendation Critical care medicine was consulted today a.m. as patient was increasingly short of breath and dyspneic and hypoxemic. Patient was placed on BiPAP 15/7 at 80% oxygen. I immediately evaluated the patient he appeared to be in moderate to severe distress. Bedside ultrasound showed large right-sided pleural effusion. I gave him 25 g of albumin and performed thoracentesis with 2 L of fluid removal. Chest x-ray postprocedure showed significant clearing of the right lung field but increased edema involving the left lung field. It is possible that patient has developed reexpansion pulmonary edema, I gave him 2 mg of IV bumex. Repeat Chest x-ray continues to show bilateral pulmonary edema , I have signed out this case to Dr. Bob who will most likely intubated the patient. Subjective subjective: 04/26: The patient required intubation, due to hypoxemic respiratory failure last a.m.. Patient still requires has high oxygen and ventilatory requirements,PEEP increased to 10. Aggressive diuresis continues. The patient converted to normal sinus rhythm yesterday afternoon amiodarone has been discontinued Cardizem has been discontinued. The patient continues on metoprolol twice a day. 04/27: Decreased urinary output overnight. Bumex 1 mg/hour instituted. Plan for repeat paracentesis procedure. The patient remains normal sinus rhythm. 04/28: Afebrile. Paracentesis today only 300 cc. Possibly slightly loculated. Weaning back loop diuretic in light of worsening renal function. Plan for right-sided pigtail catheter for recurrent pleural effusion. In attempt to wean off ventilator. Tolerating tube feeding at 10 cc an hour 04/29: Patient had a IR placed 10 [place] chest tube on the right side with 1.7 L drained. Urine output 3.3 L in 24 hours. Remains severely encephalopathic. Bedside US shows moderate L effusion 81/2: Remains intubated. Developed Afib with RVR, rate 150-160. Cardizem gtt after 20 mg IVP with no improvement. Metoprolol 5 mg IVPx1. Start Amiodarone if not improved (already on full anticoagulation. Chest x-ray today shows bilateral pigtail chest tubes in place and tiny right apical pneumothorax (R pigtail was placed by radiology). Patient remains encephalopathy despite being off sedation 05/02: Remains intubated, off sedation. More awake. Weakly following x4. UO 800 ml in 24 hours. Give 2 mg IV Bumex. Change Amio to PO 05/03: Continues to spike high fever 102.5. CXR despite bilateral chest tube and 1.6L output in 24 hours shows R> L consolidation/effusion. Creat worsening. Will hold Diuretics. Send sputum and blood cultures, give single dose of vanc and cefepime. D/W Dr. Gonzalez. Hb 6.9, will give 1U PRBC. Platelet count steadily improving 94 today 05/04: Continues to spike fever 101.5. Not tolerating CPAP. Back to Afib with RVR. Chest tube output 1.3L combined. Creat 2.5, UO 580 ml in 24 hours. Consult nephrology. Doubt successful vent weaning without trach. Will also consult nephrology 05/05: Remains on Cardizem and amiodarone infusions for atrial fibrillation, remains also on IV heparin. Hemoglobin has dropped to 7.1 I will give 1 unit PRBC transfusion. Chest x-ray unchanged. Bilateral chest tubes with 1.5 mg in 24 hours. Creatinine worsening to 2.8 urine output is 900 mL in 24 hours. Nephrology consulted and they have started Bumex 2 mg IV every 12 05/06: Extubated yesterday but had to be reintubated due to lack of airway protection and hypoxemia around 2 AM today. Creatinine is worsening 3.4 today urine output decreasing 750 mL in 24 hours. Discussed with nephrology Dr. Garcia- recommends Bumex gtt 2 mg per hour for 24 hours, and start dialysis if significant fluid cannot be achieved. Chest x-ray shows persistent bilateral effusions despite chest tube and scheduled Bumex. Overall prognosis is poor, family arriving to [facility] next week. Neurologically patient is following commands with bilateral upper extremities 05/07 Creatinine worsening and worsening oliguria despite Bumex drip with urine output only 250 mLs last 24 hour. Afebrile. In sinus rhythm rate in 50s. Discontinuing amiodarone drip. Moves hands and toes bilaterally to command 05/08 Oliguric with urine output 125 last 24 hours. Creatinine continues to increase to 4.26. Potassium is 5.4 today. It is inevitable that patient will need dialysis but family is hoping to wait on decision until they are able to meet together tomorrow morning as they are also placing consideration toward hospice. They are aware decision could be made to start dialysis and that it could be stopped at a later point if desired. They are aware potassium could increase and decision may need to be made urgently. Medically treating hyperkalemia and will assess response. 05/09 Renal function continues to worsen. Cr 4.81, potassium 5.2 with medical treatment. Family meeting today and son would like to hold off on dialysis. He is considering hospice care. He does want to continue full code status. Subjective 05/10: Afebrile. Positive BM via fecal containment device. Tube feeds not yet resumed. Family to discuss withdrawal care today Objective Vital Signs Date Time Temp Pulse Resp B/P (MAP) Pulse Ox O2 Delivery O2 Flow Rate FiO2 05/10/17 12:17 97 45 05/10/17 12:00 98.2 71 32 106/63 (77) 05/07/17 07:00 Mechanical Ventilator Intake and Output 05/10/17 05/10/17 05/10/17 07:59 15:59 23:59 Intake Total 1352 ml 850 ml Output Total 1195 ml Balance 157 ml 850 ml Result Diagram: 05/10/17 0802 05/10/17 0802 Imaging Last Impressions Chest X-Ray 05/06/17 0000 Signed Impressions: Service Date/Time: Saturday, May 06, 2017 02:51 - CONCLUSION: 1. Right- sided [place] loop thoracostomy tubes are stable in position. Worsening left-sided effusion and persistent right-sided effusion. 2. Bilateral airspace disease, right greater than left. These appear worse when compared to the prior exam. 3. Interval removal of the nasogastric tube. Endotracheal tube remains appropriately positioned above the adelita. Antonio Lopez MD Lower Extremity Ultrasound 05/02/17 0000 Signed Impressions: Service Date/Time: Tuesday, May 02, 2017 22:03 - CONCLUSION: The study is negative for deep venous thrombosis bilateral lower extremity. Kwaku Haro MD Brain MRI 04/29/17 0000 Signed Impressions: Service Date/Time: Saturday, April 29, 2017 10:08 - CONCLUSION: 1. No evidence of acute infarct, hemorrhage, mass or edema. 2. No evidence of pontine myelinolysis. 3. 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 Escobar Antony MD Chest Tube Insertion 04/28/17 1555 Signed Impressions: Service Date/Time: April 15:51 - CONCLUSION: Uncomplicated chest tube placement as above. Escobar Antony MD Chest CT 04/28/17 Signed Impressions: Service Date/Time: April 15:51 - CONCLUSION: 1. Bilateral pleural effusions as described. 2. Extensive patchy consolidating infiltrates both lungs. 3. Cardiomegaly. 4. Ascites. Escobar Antony MD Abdomen X-Ray 04/28/17 Signed Impressions: Service Date/Time: April 11:21 - CONCLUSION: Nonspecific bowel gas pattern with some mild gaseous distention of the colon. There is an NG tube in stomach. Srinivasan Ivory MD Upper Extremity Ultrasound 04/23/17 0000 Signed Impressions: Service Date/Time: Sunday, April 23, 2017 10:50 - CONCLUSION: DVT in the right upper extremity seen in the right basilic vein. There is also superficial thrombus in the right cephalic vein. Mushtaq Brown MD Cyst Biopsy Asp-Paracentesis US 04/21/17 0000 Signed Impressions: Service Date/Time: April 11:07 - CONCLUSION: Uncomplicated ultrasound guided paracentesis. Please note that the fluid throughout the abdomen is extremely complex with septations. This can be seen when the fluid has become infected or is complicated by hemorrhage or malignancy. Mushtaq Alexis MD Abdomen/Pelvis CT 04/20/17 0000 Signed Impressions: Service Date/Time: Thursday, April 20, 2017 13:56 - CONCLUSION: 1. Moderate volume free fluid in the abdomen and pelvis with possible associated peritoneal thickening. Thickening of the peritoneal lining can be seen with infection. 2. Large right and moderate size left pleural effusion with associated compressive atelectasis. 3. There is an umbilical hernia containing fluid and fat and fluid containing hernia superior and to the left of the umbilicus. This hernia also contains a portion of the transverse colon. 4. Nonacute findings include changes related to chronic liver disease including recanalized paraumbilical vein and bilateral gynecomastia. 5. Other nonacute findings include cholelithiasis and moderate atherosclerotic disease. Mushtaq Alexis MD Objective Remarks GENERAL: 57-year-old male, critically ill currently orotracheally intubated SKIN: Warm/dry. No rash; well perfused. Evolving Ecchymosis bilateral upper and lower extremities HEAD: Atraumatic. Normocephalic. EYES: Upward gaze. Pupils about 3 mm bilaterally and reactive. ENT: No nasal bleeding or discharge. Orotracheally intubated NECK: Trachea midline. CARDIOVASCULAR: RRR. S1, S2 no S4. Systolic murmur LSB 2/6 RESPIRATORY: Air entry diminished bilateral lower lung tate. Coarse bilateral breath sounds worse on the right. Bilateral #10 [place] pigtail chest tubes in place with no air leak, serous output Right 40, Left 310 cc output last 24 hours. Both at -40 cm H2O GASTROINTESTINAL: Abdomen distended large ventral hernia. Hypoactive bowel sounds. : [place] catheter in place scrotal edema MUSCULOSKELETAL: 1+ edema bilateral lower extremity/anasarca, 2+ BUE. NEUROLOGICAL: Cranial nerves appear grossly intact. Positive gag. Positive corneal reflex. Withdraws to noxious stimuli's bilateral upper and lower extremities. Procedures Paracentesis Thoracentesis Right pigtail chest tube placement Date of Insertion: Apr 25, 2017 A/P Assessment and Plan Neuro/Psych Toxic Metabolic encephalopathy Hx of ETOH abuse History of central pontine myelinolysis with quadriparesis Currently on fentanyl drip at 50 g per hour for sedation while intubated Goal of RA SS -2 Daily sedation vacation --MRI brain 04/29 shows resolution of previous osmotic demyelination syndrome Oxycodone 5 mg every 6 hours discontinued today. [facility] Atrial fibrillation with RVR - currently normal sinus rhythm -- metoprolol 25 mg by mouth every 8 hours and diltiazem 60 mg every 6 hours -- 2d Echo no evidence of endocarditis, normal ejection fraction 60%. Trace MR. Moderate TR. -- Bumetanide drip 2 mg per hour Pulmonary Acute hypoxemic respiratory failure Bilateral pigtail chest tubes for large likely transudative pleural effusions Probable HCAP and ARDS - [facility] 16/09/26/49 Ventilator bundle Albuterol/ipratropium every 6 hours with albuterol nebulizers every 2 hours. Dyspnea - s/p R pigtail CT 04/28 placed by IR, tiny R apical pneumothorax-now resolved - s/p left chest tube placement 04/29 . GI Spontaneous bacterial peritonitis with MSSA Hepatic cirrhosis secondary to ETOH abuse and Hepatitis C genotype IIIa Protein calorie malnutrition/moderate Ascitesmoderate -- Prior U/S guided paracentesis 04/21/17, fluid was loculated and septated -- Exudative fluid growing MSSA indicating peritonitis -- Antibiotics per ID -- Status post paracentesis 04/28 300 cc removed. -- Continue Jevity 1.5 goal 60 cc an hour per nutrition recommendations. Currently on hold pantoprazole for GI prophylaxis -- Outpatient workup/treatment for hepatitis C genotype IIIa - [id number] iu per milliliter. Thea/ Acute hyperkalemia Acute kidney injury -- Palmer catheter in place to monitor I/Os in critically ill patient -- No hemodialysis per family request at the present time Creatinine elevated 5.3 today. Bumetanide drip currently at 2 mg an hour Endocrine/FEN: HYPERKALEMIA -- Electrolyte replacement protocol as needed - - Discontinue scheduled potassium chloride and magnesium oxide today - Insulin, D50, bicarbonate, Kayexalate and calcium cocaine 1 now. Recheck in 3 hours Heme Anemia Coagulopathy Thrombocytopenia Right upper extremity superficial thrombosis basilic/cephalic veins -- HIT negative -- Transfuse 1U PRBC 05/05. Subsequent hemoglobin stable stool for Hemoccult + ve. Platelet count continues to improve with likely consumptive secondary to thrombophlebitis/sepsis -- Heparin gtt for atrial fibrillation. Likely can discontinue ID: MSSA bacteremia Spontaneous bacterial peritonitis -- Pertinent cultures: - Blood 04/20: 3/ bottles MSSA - Ascitic fluid 04/21: MSSA - Cultures from 05/02 neg to date Antibiotics per ID. continue cefazolin 1 g IV twice a day Prophylaxis: GI -pantoprazole DVT - SCDs; and heparin gtt Level III follow-up Jignesh Guido MD May 10, 2017 12:54
[2017-05-10] MEDS: BUMETANIDE INJ 100 ML IV SCH (14:39)
[2017-05-10] MEDS ORDERED: fentaNYL DRIP 250 ML IV PRN ×2 (15:30→16:15)
--- NOTE | 2017-05-10 15:56 | RADRPT ---
EXAM DATE/TIME: 05/10/2017 14:11 [place] COMPARISON: US ARM RIGHT VENOUS DOPPLER, April 23, 2017, 10:50. INDICATIONS : Bilateral arm swelling. MEDICAL HISTORY : Hypertension. Gastroesophageal reflux disease. Missing teeth. Seizures. Atriafibrillation. Sleep apne a. Dyspnea. Arthritis. Cirrhosis. SURGICAL HISTORY : Tracheostomy. Vented. ENCOUNTER: Initial ACUITY: 1 day PAIN SCORE: Non-responsive LOCATION: Bilateral arm. FINDINGS: RIGHT UPPER EXTREMITY: There is spontaneous flow documented in the brachial, cephalic, axillary, and subclavian veins. The vessels are compressible and augmentation response is documented. No filling defects are seen. The flow is phasic with respiration. Direction of flow in the jugular vein is caudal. There is occlusiv e thrombus in the right basilic vein again noted. LEFT UPPER EXTREMITY: There is spontaneous flow documented in the brachial, basilic, cephalic, axillary, and subclavian vei ns. The vessels are compressible and augmentation response is documented. No filling defects are se en. The flow is phasic with respiration. Direction of flow in the jugular vein is caudal. CONCLUSION: 1. Right basilic vein occlusive thrombus is identified. Watson Bermeo MD on May 10, 2017 at 15:54 Board Certified Radiologist. This report was verified electronically.
[2017-05-10] MEDS ORDERED: LORazepam 2 MG/ML VIAL IV PRN ×2 (16:45→17:00)
--- NOTE | 2017-05-10 16:49 | HHI.HCPN ---
Reason for visit a. To assist with evaluation and management of symptoms including: confusion , pain, decreased appetite, dyspnea b. To assist medical decision maker(s) with: better understanding of current medical conditions; weighing benefits/burdens of medical treatment options; making medical treatment decisions. . Subjective/Interval History Mr. Forrest is a 56 year old male patient with cirrhosis, osteoarthritis, atrial fibrillation, hypertension, GERD, sleep apnea, central pontine myelinolysis, EtOH abuse and ascites requiring paracentesis admitted to [facility] ED on04/20/2017 for management of sepsis, failure to thrive and dehydration. Status post intubation on 04/26/17 secondary to hypoxemic respiratory failure, extubation on and re-intubation the following day on 05/06/17 secondary to hypoxemia and inability to protect airway. Patient remains sedated on fentanyl 200 g and intubated on mechanical ventilator; FiO2 45%. PEEP 8. Also on Sodium bicarbonate and Bumex drip. Worsening kidney functioning; BUN: 88, creatinine 5.34, GFR 11 Potassium increased to 5.5 today. Urine output is minimal despite Bumex drip. Nephrology continues to follow, feels patient is a poor candidate for dialysis secondary to his cirrhosis and overall poor long-term prognosis. Tube feeds remain on hold. KUB showed no dilated loops of bowel; liquid stool in fecal containment device. Infectious disease following,continue to follow culture. Remains on Cefepime. Palliative care met with patient's family again today to provide updated on patient's clinical condition and clarify medical treatment goals. Patient remains critically with multi-organ dysfunction, progressive renal failure and hyperkalemia. Based on the patient's poor functioning status prior to hospitalization and current multiorgan dysfunction with overall pot poor prognosis, the family has decided to transition to comfort focused care. They state they do not want to prolong the patient's suffering. They are all in agreement that he would not want ongoing aggressive interventions, and he would not consent to tracheostomy/PEG tube placement/hemodialysis. Discussed with Dr. Guido. Exhibits B and C have been signed and placed on the patient's chart. Orders for comfort medications have been placed in the computer by Dr. Hawthorne. . . Advance Directives Advance Directive Specifics Documented care wishes: No documented care wishes have been completed . Objective Vital Signs Date Time Temp Pulse Resp B/P (MAP) Pulse Ox O2 Delivery O2 Flow Rate FiO2 8/22/17 14:00 68 05/10/17 13:00 69 05/10/17 12:17 97 45 05/10/17 12:00 45 05/10/17 12:00 98.2 71 32 106/63 (77) 97 05/10/17 12:00 70 05/10/17 11:00 71 05/10/17 11:00 71 20 118/55 (76) 94 05/10/17 10:00 67 17 114/56 (75) 98 05/10/17 10:00 67 05/10/17 09:00 67 37 122/53 (76) 98 05/10/17 09:00 67 05/10/17 08:31 98 45 05/10/17 08:00 66 05/10/17 08:00 45 05/10/17 08:00 97.8 66 23 123/58 (79) 98 05/10/17 07:00 65 28 115/56 (75) 100 05/10/17 06:00 63 05/10/17 04:13 97 60 05/10/17 04:00 60 05/10/17 04:00 64 05/10/17 04:00 97.9 64 16 99/57 (71) 97 05/10/17 02:00 64 05/10/17 00:00 98.5 55 18 100/52 (68) 98 05/10/17 00:00 55 05/10/17 00:00 60 05/09/17 23:50 98 60 05/09/17 22:00 55 05/09/17 20:14 99 60 05/09/17 20:00 98.7 57 16 93/49 (64) 100 05/09/17 20:00 60 05/09/17 20:00 57 05/09/17 18:00 61 05/09/17 17:00 69 28 113/56 (75) 96 05/09/17 17:00 69 05/09/17 16:31 70 05/09/17 16:31 70 22 121/55 (77) 94 Intake & Output 05/10/17 05/10/17 07:00 19:00 Intake Total 1352 ml 950 ml Output Total 1195 ml Balance 157 ml 950 ml IV Total 1252 ml 950 ml Tube Feeding 0 ml Tube Irrigant 100 ml Output Urine Total 75 ml Stool Total 900 ml Chest Tube Drainage Total 220 ml . Physical Exam CONSTITUTIONAL/GENERAL: This is a frail, cachectic male patient who appears older than his stated age; he remains sedated on mechanical ventilator. TUBES/LINES/DRAINS: ETT, OGT, PIV x 2, urinary catheter, rectal bag, soft restraints SKIN: Ecchymoses on upper extremities. Skin temperature appropriate. Not diaphoretic. Upper extremities edematous, weeping. HEAD: Atraumatic. Normocephalic. EYES: Upward gaze. Pupils equal and reactive ENT: Nose without bleeding or purulent drainage. NECK: Trachea midline. CARDIOVASCULAR: Regular rate and rhythm. Bilateral upper and lower extremities with 2+ to 3+ edema; upper extremities weeping. Peripheral pulses symmetric. RESPIRATORY/CHEST: Intubated on mechanical vent. Course breath sounds. GASTROINTESTINAL: Abdomen increasingly distended with ascites. Large umbilical hernia. Hypoactive bowel sounds. TF on hold and GENITOURINARY: Without palpable bladder distension. Palmer catheter in place. MUSCULOSKELETAL: Extremities without clubbing, cyanosis. Bilateral upper and lower extremities edematous LYMPHATICS: No palpable cervical or supraclavicular adenopathy. NEUROLOGICAL: Patient withdraws to deep tactile stimuli; sedated on fentanyl PSYCHIATRIC: Unable to assess due to patient's medical condition, sedated on mechanical ventilator. . Diagnostic Tests Laboratory Laboratory Tests Test 05/08/17 04:37 05/08/17 13:55 05/09/17 03:17 05/09/17 08:17 White Blood Count 7.7 TH/MM3 (4.0-11.0) 7.6 TH/MM3 (4.0-11.0) Red Blood Count 2.92 MIL/MM3 (4.50-5.90) 2.69 MIL/MM3 (4.50-5.90) Hemoglobin 8.2 GM/DL (13.0-17.0) 7.7 GM/DL (13.0-17.0) Hematocrit 25.7 % (39.0-51.0) 23.5 % (39.0-51.0) Mean Corpuscular Volume 88.3 FL (80.0-100.0) 87.2 FL (80.0-100.0) Mean Corpuscular Hemoglobin 28.0 PG (27.0-34.0) 28.6 PG (27.0-34.0) Mean Corpuscular Hemoglobin Concent 31.8 % (32.0-36.0) 32.8 % (32.0-36.0) Red Cell Distribution Width 21.7 % (11.6-17.2) 20.6 % (11.6-17.2) Platelet Count 197 TH/MM3 (150-450) 207 TH/MM3 (150-450) Mean Platelet Volume 8.9 FL (7.0-11.0) 9.4 FL (7.0-11.0) Neutrophils (%) (Auto) 82.0 % (16.0-70.0) 77.8 % (16.0-70.0) Lymphocytes (%) (Auto) 4.9 % (9.0-44.0) 6.8 % (9.0-44.0) Monocytes (%) (Auto) 9.7 % (0.0-8.0) 9.2 % (0.0-8.0) Eosinophils (%) (Auto) 1.3 % (0.0-4.0) 1.4 % (0.0-4.0) Basophils (%) (Auto) 2.1 % (0.0-2.0) 4.8 % (0.0-2.0) Neutrophils # (Auto) 6.3 TH/MM3 (1.8-7.7) 5.9 TH/MM3 (1.8-7.7) Lymphocytes # (Auto) 0.4 TH/MM3 (1.0-4.8) 0.5 TH/MM3 (1.0-4.8) Monocytes # (Auto) 0.7 TH/MM3 (0-0.9) 0.7 TH/MM3 (0-0.9) Eosinophils # (Auto) 0.1 TH/MM3 (0-0.4) 0.1 TH/MM3 (0-0.4) Basophils # (Auto) 0.2 TH/MM3 (0-0.2) 0.4 TH/MM3 (0-0.2) CBC Comment DIFF FINAL DIFF FINAL Differential Comment Activated Partial Thromboplast Time 44.1 SEC (24.3-30.1) 111.3 SEC (24.3-30.1) 52.8 SEC (24.3-30.1) Blood Urea Nitrogen 78 MG/DL (7-18) 79 MG/DL (7-18) 81 MG/DL (7-18) Creatinine 4.26 MG/DL (0.60-1.30) 4.69 MG/DL (0.60-1.30) 4.81 MG/DL (0.60-1.30) Random Glucose 111 MG/DL (74-106) 143 MG/DL (74-106) 130 MG/DL (74-106) Total Protein 7.3 GM/DL (6.4-8.2) Albumin 3.8 GM/DL (3.4-5.0) Calcium Level 8.8 MG/DL (8.5-10.1) 8.7 MG/DL (8.5-10.1) 8.4 MG/DL (8.5-10.1) Phosphorus Level 4.4 MG/DL (2.5-4.9) 4.7 MG/DL (2.5-4.9) Magnesium Level 2.2 MG/DL (1.5-2.5) Alkaline Phosphatase 44 U/L (45-117) Aspartate Amino Transf (AST/SGOT) 8 U/L (15-37) Alanine Aminotransferase (ALT/SGPT) LESS THAN 6 U/L (12-78) Total Bilirubin 0.8 MG/DL (0.2-1.0) Sodium Level 134 MEQ/L (136-145) 138 MEQ/L (136-145) 135 MEQ/L (136-145) Potassium Level 5.4 MEQ/L (3.5-5.1) 5.3 MEQ/L (3.5-5.1) 5.2 MEQ/L (3.5-5.1) Chloride Level 107 MEQ/L (98-107) 108 MEQ/L (98-107) 105 MEQ/L (98-107) Carbon Dioxide Level 14.4 MEQ/L (21.0-32.0) 19.1 MEQ/L (21.0-32.0) 18.9 MEQ/L (21.0-32.0) Anion Gap 13 MEQ/L (5-15) 11 MEQ/L (5-15) 11 MEQ/L (5-15) Estimat Glomerular Filtration Rate 14 ML/MIN (>89) 13 ML/MIN (>89) 12 ML/MIN (>89) Test 05/09/17 14:50 05/09/17 22:24 05/10/17 08:02 Activated Partial Thromboplast Time 81.8 SEC (24.3-30.1) 67.9 SEC (24.3-30.1) 62.3 SEC (24.3-30.1) White Blood Count 8.2 TH/MM3 (4.0-11.0) Red Blood Count 2.74 MIL/MM3 (4.50-5.90) Hemoglobin 7.8 GM/DL (13.0-17.0) Hematocrit 24.1 % (39.0-51.0) Mean Corpuscular Volume 87.7 FL (80.0-100.0) Mean Corpuscular Hemoglobin 28.5 PG (27.0-34.0) Mean Corpuscular Hemoglobin Concent 32.4 % (32.0-36.0) Red Cell Distribution Width 21.7 % (11.6-17.2) Platelet Count 178 TH/MM3 (150-450) Mean Platelet Volume 8.7 FL (7.0-11.0) Neutrophils (%) (Auto) 86.5 % (16.0-70.0) Lymphocytes (%) (Auto) 5.5 % (9.0-44.0) Monocytes (%) (Auto) 7.1 % (0.0-8.0) Eosinophils (%) (Auto) 0.3 % (0.0-4.0) Basophils (%) (Auto) 0.6 % (0.0-2.0) Neutrophils # (Auto) 7.1 TH/MM3 (1.8-7.7) Lymphocytes # (Auto) 0.4 TH/MM3 (1.0-4.8) Monocytes # (Auto) 0.6 TH/MM3 (0-0.9) Eosinophils # (Auto) 0.0 TH/MM3 (0-0.4) Basophils # (Auto) 0.0 TH/MM3 (0-0.2) CBC Comment DIFF FINAL Differential Comment Blood Urea Nitrogen 88 MG/DL (7-18) Creatinine 5.34 MG/DL (0.60-1.30) Random Glucose 103 MG/DL (74-106) Calcium Level 8.6 MG/DL (8.5-10.1) Sodium Level 137 MEQ/L (136-145) Potassium Level 5.5 MEQ/L (3.5-5.1) Chloride Level 104 MEQ/L (98-107) Carbon Dioxide Level 16.8 MEQ/L (21.0-32.0) Anion Gap 16 MEQ/L (5-15) Estimat Glomerular Filtration Rate 11 ML/MIN (>89) Magnesium Level 2.1 MG/DL (1.5-2.5) . Result Diagram: 05/10/17 0802 05/10/17 0802 Imaging Last 72 hours Impressions Abdomen X-Ray 05/09/17 0000 Signed Impressions: Service Date/Time: Tuesday, May 09, 2017 11:51 - CONCLUSION: No dilated loops of bowel. Kwaku Rosario Jr., MD . Procedures 04/21/17: Ultrasound guided paracentesis 04/28/17: Right chest tube 04/28/17: Ultrasound guided paracentesis 04/29/17: Left chest tube . Assessment and Plan Disease Oriented Problem List: (1) Diarrhea (2) HTN (hypertension) (3) Atrial fibrillation with RVR (4) Encephalopathy (5) Sepsis (6) Ascites (7) Bacterial peritonitis (8) Pneumonia (9) Pleural effusion (10) Alcohol abuse (11) Wernicke-Korsakoff syndrome (alcoholic) Symptom Scale: (1) Decrease in appetite (2) Pain (3) Dyspnea (4) Confusion Pertinent Non-Medical Issues Psychosocial: Patient is originally from [place], [place]. His parents are ; he has/had 3 siblings (Anay, Josefa, Tigre). He moved to [place] in 2012. Patient is . Patient has 1 son, Rickey malone, who is the healthcare proxy decision-make Spiritual: Raised holiness Legal: Per orders statutes, in the absence of written advanced directives healthcare proxy decision-making falls to the patient's son. Ethical issues impacting care: No known ethical issues impacting care. . Important Contacts Rickey Forrest III, son: [phone] (Son DOES WISH to serve has health care proxy). Anay Blount, sister: [place]) [phone] Josefa Driver, sister: [phone] Tigre Forrest, sister: [phone] . Prognosis Patient is a 57 year old male patient with a history of liver disease with ascites requiring paracentesis secondary to EtOH abuse. Currently admitted with sepsis/bacterial peritonitis/pneumonia with pleural effusions, encephalopathy and atrial fibrillation with RVR. S/P intubation, chest tubes x 2 , and multiple paracenteses. Patient is extremely debilitated. Prognosis is poor. . Code Status: No Code Plan * NO CODE * Decision-making: Per [place] statutes, in the absence of written advanced directives healthcare proxy decision-making falls to the patient's son Rickey malone. Risa Pena is NOT the patient's and should not be included in any medical decision making. HCP: Rickey Forrest III, son: [phone] * Palliative care met with patient's family again today to provide updated on patient's clinical condition and clarify medical treatment goals. Patient remains critically with multi-organ dysfunction, progressive renal failure and hyperkalemia. Based on the patient's poor functioning status prior to hospitalization and current multiorgan dysfunction with overall pot poor prognosis, the family has decided to transition to comfort focused care. They state they do not want to prolong the patient's suffering. They are all in agreement that he would not want ongoing aggressive interventions, and he would not consent to tracheostomy/PEG tube placement/hemodialysis. Requesting compassionate withdrawal of artificial life support. * Discussed with patient's nurse (Le), Dr. Hawthorne and Dr. Guido * Palliative care providing ongoing support and active listening; encouraged life review. * Exhibits B and C have been signed and placed on the patient's chart. Orders for comfort medications have been placed in the computer by Dr. Hawthorne. Attestation To help prompt me to consider important information that might be impacting today's encounter and assessment, information from prior notes written by myself or my colleagues may have been "brought forward" into today's note. My signature on this note, however, is an attestation that I personally performed the exam, history, and/or decision-making noted today, and, unless otherwise indicated, the interactions with patient, family, and staff as well as the review of records all occurred today. I also attest that the listed assessment and stated plan reflect my best clinical judgment today based on the combination of historical information, prior notes, and today's exam/ interactions. When time spent is documented, it refers only to time spent today by the signer, or if indicated, combined time spent today by collaborating physician/nurse practitioner. . Adina Gonzalez May 10, 2017 16:49
[2017-05-10] MEDS ORDERED: HYOSCYAMINE 0.5 MG/ML AMP IV ONE (17:00)
[2017-05-10] MEDS ORDERED: LORazepam 2 MG/ML VIAL IV ONE ×2 (17:00)
[2017-05-10] MEDS ORDERED: LORazepam 2 MG/ML VIAL IVS PRN (17:00)
[2017-05-10] MEDS ORDERED: ACETAMINOPHEN 650 MG SUPP RECTAL PRN (17:00)
[2017-05-10] MEDS ORDERED: BISACODYL 10 MG SUPP RECTAL PRN (17:00)
[2017-05-10] MEDS: LORazepam 2 MG/ML VIAL IV SCH ×2 (21:03→23:55)
[2017-05-10] MEDS: FUROSEMIDE 20 MG/2 ML VIAL IV PRN (21:04)
[2017-05-10] MEDS: HYOSCYAMINE 0.5 MG/ML AMP IV PRN (21:04)
[2017-05-11] VITALS (7 sets, daily range): BP systolic 81–91; BP diastolic 47–53; PULSE 64–69; RESP 20–46; TEMP 93.4–96.6; O2SAT 77–79
[2017-05-11] MEDS: HYOSCYAMINE 0.5 MG/ML AMP IV PRN ×4 (03:34→15:28)
[2017-05-11] MEDS: LORazepam 2 MG/ML VIAL IV SCH ×5 (03:34→20:46)
[2017-05-11] MEDS: FUROSEMIDE 20 MG/2 ML VIAL IV PRN ×2 (03:34→11:34)
--- NOTE | 2017-05-11 05:43 | RADRPT ---
EXAM DATE/TIME: 05/11/2017 04:55 [facility] COMPARISON: CHEST SINGLE AP, May 06, 2017, 2:51. INDICATIONS : Shortness of breath. MEDICAL HISTORY : Hypertension. Gastroesophageal reflux disease. Sleep apnea. SURGICAL HISTORY : Tracheostomy. ENCOUNTER: Subsequent ACUITY: 2 weeks PAIN SCORE: Non-responsive. LOCATION: Bilateral chest FINDINGS: A single view of the chest demonstrates interval extubation. Small caliber chest tubes remain bilater ally without significant pneumothorax. Bilateral mostly basilar airspace consolidation in the lungs. CONCLUSION: 1. Interval extubation. Basilar air space consolidation slightly improved from May 06 comparison. Bilateral chest tubes remain. Rickey Michael MD on May 11, 2017 at 5:40 Board Certified Radiologist. This report was verified electronically.
--- NOTE | 2017-05-11 09:51 | HHI.CCPN ---
Subjective Remarks/Hospital Course History of Present Illness Mr. Forrest is a 56 year old male patient with cirrhosis secondary to hepatitis C and alcohol dependence, atrial fibrillation, hypertension, GERD, sleep apnea, history of central pontine myelinolysis,ascites requiring paracentesis who admitted to [facility] with on 04/20/2017 for evaluation of decreased oral intake, probable sepsis and ascites. An EKG on admission showed atrial fibrillation with RVR. His initial WBC count was 15K. Infectious disease was consulted and patient was placed on broad-spectrum antibiotic. Recently underwent paracentesis by IR on 04/21/17 with the fluid was described as loculated and septated. Fluid culture grew MSSA. 3 out of 4 blood cultures on 04/20/17 growing MSSA. For Atrial fibrillation with RVR patient was placed on Cardizem drip. Paracentesis on 04/21/2017 650 ccfluid removed. Peritoneal WBC - 01081; peritoneal RBC - 411. Patient had been receiving Ancef and vancomycin per ID recommendation Critical care medicine was consulted today a.m. as patient was increasingly short of breath and dyspneic and hypoxemic. Patient was placed on BiPAP 15/7 at 80% oxygen. I immediately evaluated the patient he appeared to be in moderate to severe distress. Bedside ultrasound showed large right-sided pleural effusion. I gave him 25 g of albumin and performed thoracentesis with 2 L of fluid removal. Chest x-ray postprocedure showed significant clearing of the right lung field but increased edema involving the left lung field. It is possible that patient has developed reexpansion pulmonary edema, I gave him 2 mg of IV bumex. Repeat Chest x-ray continues to show bilateral pulmonary edema , I have signed out this case to Dr. Bob who will most likely intubated the patient. Subjective subjective: 04/26: The patient required intubation, due to hypoxemic respiratory failure last a.m.. Patient still requires has high oxygen and ventilatory requirements,PEEP increased to 10. Aggressive diuresis continues. The patient converted to normal sinus rhythm yesterday afternoon amiodarone has been discontinued Cardizem has been discontinued. The patient continues on metoprolol twice a day. 04/27: Decreased urinary output overnight. Bumex 1 mg/hour instituted. Plan for repeat paracentesis procedure. The patient remains normal sinus rhythm. 04/28: Afebrile. Paracentesis today only 300 cc. Possibly slightly loculated. Weaning back loop diuretic in light of worsening renal function. Plan for right-sided pigtail catheter for recurrent pleural effusion. In attempt to wean off ventilator. Tolerating tube feeding at 10 cc an hour 04/29: Patient had a IR placed 10 Cymro chest tube on the right side with 1.7 L drained. Urine output 3.3 L in 24 hours. Remains severely encephalopathic. Bedside US shows moderate L effusion 81/2: Remains intubated. Developed Afib with RVR, rate 150-160. Cardizem gtt after 20 mg IVP with no improvement. Metoprolol 5 mg IVPx1. Start Amiodarone if not improved (already on full anticoagulation. Chest x-ray today shows bilateral pigtail chest tubes in place and tiny right apical pneumothorax (R pigtail was placed by radiology). Patient remains encephalopathy despite being off sedation 05/02: Remains intubated, off sedation. More awake. Weakly following x4. UO 800 ml in 24 hours. Give 2 mg IV Bumex. Change Amio to PO 05/03: Continues to spike high fever 102.5. CXR despite bilateral chest tube and 1.6L output in 24 hours shows R> L consolidation/effusion. Creat worsening. Will hold Diuretics. Send sputum and blood cultures, give single dose of vanc and cefepime. D/W Dr. Gonzalez. Hb 6.9, will give 1U PRBC. Platelet count steadily improving 94 today 05/04: Continues to spike fever 101.5. Not tolerating CPAP. Back to Afib with RVR. Chest tube output 1.3L combined. Creat 2.5, UO 580 ml in 24 hours. Consult nephrology. Doubt successful vent weaning without trach. Will also consult nephrology 05/05: Remains on Cardizem and amiodarone infusions for atrial fibrillation, remains also on IV heparin. Hemoglobin has dropped to 7.1 I will give 1 unit PRBC transfusion. Chest x-ray unchanged. Bilateral chest tubes with 1.5 mg in 24 hours. Creatinine worsening to 2.8 urine output is 900 mL in 24 hours. Nephrology consulted and they have started Bumex 2 mg IV every 12 05/06: Extubated yesterday but had to be reintubated due to lack of airway protection and hypoxemia around 2 AM today. Creatinine is worsening 3.4 today urine output decreasing 750 mL in 24 hours. Discussed with nephrology Dr. Garcia- recommends Bumex gtt 2 mg per hour for 24 hours, and start dialysis if significant fluid cannot be achieved. Chest x-ray shows persistent bilateral effusions despite chest tube and scheduled Bumex. Overall prognosis is poor, family [facility]. Neurologically patient is following commands with bilateral upper extremities 05/07 Creatinine worsening and worsening oliguria despite Bumex drip with urine output only 250 mLs last 24 hour. Afebrile. In sinus rhythm rate in 50s. Discontinuing amiodarone drip. Moves hands and toes bilaterally to command 05/08 Oliguric with urine output 125 last 24 hours. Creatinine continues to increase to 4.26. Potassium is 5.4 today. It is inevitable that patient will need dialysis but family is hoping to wait on decision until they are able to meet together tomorrow morning as they are also placing consideration toward hospice. They are aware decision could be made to start dialysis and that it could be stopped at a later point if desired. They are aware potassium could increase and decision may need to be made urgently. Medically treating hyperkalemia and will assess response. 05/09 Renal function continues to worsen. Cr 4.81, potassium 5.2 with medical treatment. Family meeting today and son would like to hold off on dialysis. He is considering hospice care. He does want to continue full code status. 05/10: Afebrile. Positive BM via fecal containment device. Tube feeds not yet resumed. Family to discuss withdrawal care today Subjective 05/11: Afebrile. Family decided to withdraw care yesterday. Extubated. Bilateral chest tubes remain. Objective Vital Signs Date Time Temp Pulse Resp B/P (MAP) Pulse Ox O2 Delivery O2 Flow Rate FiO2 05/11/17 08:00 93.4 64 30 84/47 (59) 78 05/10/17 17:30 Room Air 21 Intake and Output 05/11/17 05/11/17 05/12/17 08:00 16:00 00:00 Intake Total 0 ml Output Total 195 ml Balance -195 ml Result Diagram: 05/10/17 0802 05/10/17 0802 Other Results Microbiology Date/Time Source Procedure Growth Status 05/03/17 19:22 Blood Peripheral Aerobic Blood Culture - Final NO GROWTH IN 5 DAYS Complete 8/15/17 19:22 Blood Peripheral Anaerobic Blood Culture - Final NO GROWTH IN 5 DAYS Complete 04/29/17 13:00 Fluid Pleural Fluid Fungal Smear - Final NO FUNGAL ELEMENTS SEEN. Resulted 04/29/17 13:00 Fluid Pleural Fluid Fungal Culture - Preliminary NO GROWTH IN 1 WEEK Resulted 05/03/17 11:40 Stool Stool Stool Occult Blood (BARBARA) - Final HEMOCCULT POSITIVE Complete 05/03/17 13:55 Sputum Endotracheal Gram Stain - Final Complete 05/03/17 13:55 Sputum Endotracheal Sputum Culture - Final HEAVY GROWTH NORMAL RESPIRATORY PRAVIN Complete 05/02/17 17:22 Urine Catheterized Urine Urine Culture - Final NO GROWTH IN 48 HOURS. Complete Imaging Last Impressions Chest X-Ray 05/11/17 0600 Signed Impressions: Service Date/Time: Thursday, May 11, 2017 04:55 - CONCLUSION: 1. Interval extubation. Basilar air space consolidation slightly improved from May 06 comparison. Bilateral chest tubes remain. Rickey Michael MD Upper Extremity Ultrasound 05/10/17 0000 Signed Impressions: Service Date/Time: Wednesday, May 10, 2017 14:11 - CONCLUSION: 1. Right basilic vein occlusive thrombus is identified. Watson Bermeo MD Abdomen X-Ray 05/09/17 0000 Signed Impressions: Service Date/Time: Tuesday, May 09, 2017 11:51 - CONCLUSION: No dilated loops of bowel. Kwaku Rosario Jr., MD Lower Extremity Ultrasound 05/02/17 0000 Signed Impressions: Service Date/Time: Tuesday, May 02, 2017 22:03 - CONCLUSION: The study is negative for deep venous thrombosis bilateral lower extremity. Kwaku Haro MD Brain MRI 04/29/17 0000 Signed Impressions: Service Date/Time: Saturday, April 29, 2017 10:08 - CONCLUSION: 1. No evidence of acute infarct, hemorrhage, mass or edema. 2. No evidence of pontine myelinolysis. 3. 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 Escobar Antony MD Chest Tube Insertion 04/28/17 1555 Signed Impressions: Service Date/Time: April 15:51 - CONCLUSION: Uncomplicated chest tube placement as above. Escobar Antony MD Chest CT 04/28/17 0000 Signed Impressions: Service Date/Time: April 15:51 - CONCLUSION: 1. Bilateral pleural effusions as described. 2. Extensive patchy consolidating infiltrates both lungs. 3. Cardiomegaly. 4. Ascites. Escobar Antony MD Cyst Biopsy Asp-Paracentesis US 04/21/17 0000 Signed Impressions: Service Date/Time: April 11:07 - CONCLUSION: Uncomplicated ultrasound guided paracentesis. Please note that the fluid throughout the abdomen is extremely complex with septations. This can be seen when the fluid has become infected or is complicated by hemorrhage or malignancy. Mushtaq Alexis MD Abdomen/Pelvis CT 04/20/17 0000 Signed Impressions: Service Date/Time: Thursday, April 20, 2017 13:56 - CONCLUSION: 1. Moderate volume free fluid in the abdomen and pelvis with possible associated peritoneal thickening. Thickening of the peritoneal lining can be seen with infection. 2. Large right and moderate size left pleural effusion with associated compressive atelectasis. 3. There is an umbilical hernia containing fluid and fat and fluid containing hernia superior and to the left of the umbilicus. This hernia also contains a portion of the transverse colon. 4. Nonacute findings include changes related to chronic liver disease including recanalized paraumbilical vein and bilateral gynecomastia. 5. Other nonacute findings include cholelithiasis and moderate atherosclerotic disease. Mushtaq Alexis MD Objective Remarks GENERAL: 57-year-old male, critically ill currently extubated SKIN: Warm/dry. No rash; well perfused. Evolving Ecchymosis bilateral upper and lower extremities HEAD: Atraumatic. Normocephalic. EYES: Upward gaze. Pupils about 3 mm bilaterally and reactive. ENT: No nasal bleeding or discharge. Orotracheally intubated NECK: Trachea midline. CARDIOVASCULAR: RRR. S1, S2 no S4. Systolic murmur LSB 2/6 RESPIRATORY: Air entry diminished bilateral lower lung tate. Coarse bilateral breath sounds worse on the right. Bilateral pig tail chest tubes remain. GASTROINTESTINAL: Abdomen distended large ventral hernia. Hypoactive bowel sounds. : Palmer catheter in place scrotal edema MUSCULOSKELETAL: 1+ edema bilateral lower extremity/anasarca, 2+ BUE. NEUROLOGICAL: Cranial nerves appear grossly intact. Positive gag. Positive corneal reflex. Withdraws to noxious stimuli's bilateral upper and lower extremities. Procedures Paracentesis Thoracentesis Right pigtail chest tube placement Date of Insertion: Apr 25, 2017 A/P Assessment and Plan Neuro/Psych Toxic Metabolic encephalopathy Hx of ETOH abuse History of central pontine myelinolysis with quadriparesis Lorazepam and fentanyl for comfort measures at the present time CVS Atrial fibrillation with RVR - currently normal sinus rhythm Off all prior cardiac medications. Furosemide 20 mg IV every 6 hours. 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 Endocrine/FEN: HYPERKALEMIA No further lab draws Heme Anemia Coagulopathy Thrombocytopenia Right upper extremity superficial thrombosis basilic/cephalic veins No indications for transfusion of blood products ID: MSSA bacteremia Spontaneous bacterial peritonitis Antibiotic have been discontinued Level I follow-up Patient will be transferred to the floor. We'll likely transfer to hospice service today. Jignesh Guido MD May 11, 2017 09:51
--- NOTE | 2017-05-11 12:14 | HHI.HCPN ---
Reason for visit a. To assist with evaluation and management of symptoms including: pain, secretions, dyspnea b. To assist medical decision maker(s) with: better understanding of current medical conditions; weighing benefits/burdens of medical treatment options; making medical treatment decisions. . Subjective/Interval History Patient seen in room 510 s/p compassionate withdrawal of artificial life support yesterday 05/10/17. Respirations elevated in the 30s-40s with coarse air exchange, excessive secretions. Nurse notified; patient received IV furosemide 20mg and IV hyoscyamine 0.25 mg at 1134. Otherwise, patient showing no nonverbal signs/symptoms of distress. He remains on a Fentanyl drip and is scheduled Lorazepam q4 hours. PRN fentanyl and lorazepam are also available. Patient has orders to be transferred to medical floor. Spoke to patient's son, Rickey Forrest III, who is considering hospice for symptom management and EOL care. Discussed with Dr. Guido. Hospice consult placed. Notified patient's nurse (Lesley), case management (Jeannette) and hospice admission nurse (Afia). Report given to [facility] intake. . Advance Directives Advance Directive Specifics Documented care wishes: No documented care wishes have been completed . Significant change in goals: Family would like to speak with hospice; hospice consult pending. . Objective Vital Signs Date Time Temp Pulse Resp B/P (MAP) Pulse Ox O2 Delivery O2 Flow Rate FiO2 05/11/17 12:00 65 05/11/17 12:00 94.3 65 46 89/48 (62) 77 05/11/17 08:00 93.4 64 30 84/47 (59) 78 05/11/17 08:00 64 05/11/17 06:00 65 05/11/17 04:00 66 05/11/17 04:00 96.6 66 20 89/53 (65) 79 05/11/17 02:00 68 05/11/17 00:00 96.6 69 36 91/50 (64) 77 05/11/17 00:00 69 05/10/17 22:00 71 05/10/17 20:00 98.2 69 38 104/53 (70) 76 05/10/17 20:00 69 05/10/17 18:00 67 14 80 05/10/17 18:00 67 05/10/17 17:30 Room Air 21 05/10/17 17:00 66 18 108/50 (69) 98 05/10/17 17:00 66 05/10/17 16:00 69 05/10/17 16:00 97.9 69 19 106/53 (70) 96 05/10/17 15:00 68 31 115/56 (75) 98 05/10/17 15:00 67 05/10/17 14:00 70 26 126/60 (82) 97 05/10/17 14:00 68 05/10/17 13:00 69 05/10/17 13:00 69 41 105/59 (74) 96 05/10/17 12:17 97 45 Intake & Output 05/11/17 05/11/17 07:00 19:00 Intake Total 0 ml Output Total 1390 ml Balance -1390 ml Intake Oral 0 ml IV Total 0 ml Output Urine Total 50 ml Stool Total 250 ml Chest Tube Drainage Total 1090 ml . Physical Exam CONSTITUTIONAL/GENERAL: This is a frail, cachectic male patient who appears older than his stated age status post compassionate withdrawal of artificial life support TUBES/LINES/DRAINS: PIV x 2, urinary catheter, rectal bag SKIN: Skin temperature appropriate. Not diaphoretic. Upper extremities edematous. HEAD: Atraumatic. Normocephalic. EYES: Eyes open, upward gaze. Pupils equal and sluggish. ENT: Nose without bleeding or purulent drainage. NECK: Trachea midline. CARDIOVASCULAR: Regular rate and rhythm. Bilateral upper and lower extremities with 2+ to 3+ edema. Peripheral pulses symmetric. Lower extremities warm to touch. No mottling. RESPIRATORY/CHEST: Tachypneic with coarse air exchange; PRN levsin and furosemide administered at 1134 GASTROINTESTINAL: Abdomen increasingly distended with ascites. Large umbilical hernia. GENITOURINARY: Without palpable bladder distension. MUSCULOSKELETAL: Extremities without clubbing, cyanosis. Bilateral upper and lower extremities edematous. No mottling LYMPHATICS: No palpable cervical or supraclavicular adenopathy. NEUROLOGICAL: Unresponsive PSYCHIATRIC: No apparent anxiety/agitation. . Diagnostic Tests Laboratory Laboratory Tests Test 05/08/17 13:55 05/09/17 03:17 05/09/17 08:17 05/09/17 14:50 Blood Urea Nitrogen 79 MG/DL (7-18) 81 MG/DL (7-18) Creatinine 4.69 MG/DL (0.60-1.30) 4.81 MG/DL (0.60-1.30) Random Glucose 143 MG/DL (74-106) 130 MG/DL (74-106) Calcium Level 8.7 MG/DL (8.5-10.1) 8.4 MG/DL (8.5-10.1) Sodium Level 138 MEQ/L (136-145) 135 MEQ/L (136-145) Potassium Level 5.3 MEQ/L (3.5-5.1) 5.2 MEQ/L (3.5-5.1) Chloride Level 108 MEQ/L (98-107) 105 MEQ/L (98-107) Carbon Dioxide Level 19.1 MEQ/L (21.0-32.0) 18.9 MEQ/L (21.0-32.0) Anion Gap 11 MEQ/L (5-15) 11 MEQ/L (5-15) Estimat Glomerular Filtration Rate 13 ML/MIN (>89) 12 ML/MIN (>89) White Blood Count 7.6 TH/MM3 (4.0-11.0) Red Blood Count 2.69 MIL/MM3 (4.50-5.90) Hemoglobin 7.7 GM/DL (13.0-17.0) Hematocrit 23.5 % (39.0-51.0) Mean Corpuscular Volume 87.2 FL (80.0-100.0) Mean Corpuscular Hemoglobin 28.6 PG (27.0-34.0) Mean Corpuscular Hemoglobin Concent 32.8 % (32.0-36.0) Red Cell Distribution Width 20.6 % (11.6-17.2) Platelet Count 207 TH/MM3 (150-450) Mean Platelet Volume 9.4 FL (7.0-11.0) Neutrophils (%) (Auto) 77.8 % (16.0-70.0) Lymphocytes (%) (Auto) 6.8 % (9.0-44.0) Monocytes (%) (Auto) 9.2 % (0.0-8.0) Eosinophils (%) (Auto) 1.4 % (0.0-4.0) Basophils (%) (Auto) 4.8 % (0.0-2.0) Neutrophils # (Auto) 5.9 TH/MM3 (1.8-7.7) Lymphocytes # (Auto) 0.5 TH/MM3 (1.0-4.8) Monocytes # (Auto) 0.7 TH/MM3 (0-0.9) Eosinophils # (Auto) 0.1 TH/MM3 (0-0.4) Basophils # (Auto) 0.4 TH/MM3 (0-0.2) CBC Comment DIFF FINAL Differential Comment Activated Partial Thromboplast Time 111.3 SEC (24.3-30.1) 52.8 SEC (24.3-30.1) 81.8 SEC (24.3-30.1) Phosphorus Level 4.7 MG/DL (2.5-4.9) Test 05/09/17 22:24 05/10/17 08:02 Activated Partial Thromboplast Time 67.9 SEC (24.3-30.1) 62.3 SEC (24.3-30.1) White Blood Count 8.2 TH/MM3 (4.0-11.0) Red Blood Count 2.74 MIL/MM3 (4.50-5.90) Hemoglobin 7.8 GM/DL (13.0-17.0) Hematocrit 24.1 % (39.0-51.0) Mean Corpuscular Volume 87.7 FL (80.0-100.0) Mean Corpuscular Hemoglobin 28.5 PG (27.0-34.0) Mean Corpuscular Hemoglobin Concent 32.4 % (32.0-36.0) Red Cell Distribution Width 21.7 % (11.6-17.2) Platelet Count 178 TH/MM3 (150-450) Mean Platelet Volume 8.7 FL (7.0-11.0) Neutrophils (%) (Auto) 86.5 % (16.0-70.0) Lymphocytes (%) (Auto) 5.5 % (9.0-44.0) Monocytes (%) (Auto) 7.1 % (0.0-8.0) Eosinophils (%) (Auto) 0.3 % (0.0-4.0) Basophils (%) (Auto) 0.6 % (0.0-2.0) Neutrophils # (Auto) 7.1 TH/MM3 (1.8-7.7) Lymphocytes # (Auto) 0.4 TH/MM3 (1.0-4.8) Monocytes # (Auto) 0.6 TH/MM3 (0-0.9) Eosinophils # (Auto) 0.0 TH/MM3 (0-0.4) Basophils # (Auto) 0.0 TH/MM3 (0-0.2) CBC Comment DIFF FINAL Differential Comment Blood Urea Nitrogen 88 MG/DL (7-18) Creatinine 5.34 MG/DL (0.60-1.30) Random Glucose 103 MG/DL (74-106) Calcium Level 8.6 MG/DL (8.5-10.1) Sodium Level 137 MEQ/L (136-145) Potassium Level 5.5 MEQ/L (3.5-5.1) Chloride Level 104 MEQ/L (98-107) Carbon Dioxide Level 16.8 MEQ/L (21.0-32.0) Anion Gap 16 MEQ/L (5-15) Estimat Glomerular Filtration Rate 11 ML/MIN (>89) Magnesium Level 2.1 MG/DL (1.5-2.5) Result Diagram: 05/10/17 0802 05/10/17 0802 Microbiology Microbiology Date/Time Source Procedure Growth Status 05/03/17 19:22 Blood Peripheral Aerobic Blood Culture - Final NO GROWTH IN 5 DAYS Complete 05/03/17 19:22 Blood Peripheral Anaerobic Blood Culture - Final NO GROWTH IN 5 DAYS Complete 04/29/17 13:00 Fluid Pleural Fluid Fungal Smear - Final NO FUNGAL ELEMENTS SEEN. Resulted 04/29/17 13:00 Fluid Pleural Fluid Fungal Culture - Preliminary NO GROWTH IN 1 WEEK Resulted 05/03/17 11:40 Stool Stool Stool Occult Blood (BARBARA) - Final HEMOCCULT POSITIVE Complete 05/03/17 13:55 Sputum Endotracheal Gram Stain - Final Complete 05/03/17 13:55 Sputum Endotracheal Sputum Culture - Final HEAVY GROWTH NORMAL RESPIRATORY PRAVIN Complete 05/02/17 17:22 Urine Catheterized Urine Urine Culture - Final NO GROWTH IN 48 HOURS. Complete . Imaging Last 72 hours Impressions Chest X-Ray 05/11/17 0600 Signed Impressions: Service Date/Time: Tuesday, May 11, 2017 04:55 - CONCLUSION: 1. Interval extubation. Basilar air space consolidation slightly improved from May 06 comparison. Bilateral chest tubes remain. Rickey Michael MD Upper Extremity Ultrasound 05/10/17 0000 Signed Impressions: Service Date/Time: Wednesday, May 10, 2017 14:11 - CONCLUSION: 1. Right basilic vein occlusive thrombus is identified. Watson Bermeo MD Abdomen X-Ray 05/09/17 0000 Signed Impressions: Service Date/Time: Tuesday, May 09, 2017 11:51 - CONCLUSION: No dilated loops of bowel. Kwaku Rosario Jr., MD . Procedures 04/21/17: Ultrasound guided paracentesis 04/28/17: Right chest tube 04/28/17: Ultrasound guided paracentesis 04/29/17: Left chest tube . Assessment and Plan Disease Oriented Problem List: (1) Diarrhea (2) HTN (hypertension) (3) Atrial fibrillation with RVR (4) Encephalopathy (5) Sepsis (6) Ascites (7) Bacterial peritonitis (8) Pneumonia (9) Pleural effusion (10) Alcohol abuse (11) Wernicke-Korsakoff syndrome (alcoholic) Symptom Scale: (1) Decrease in appetite (2) Pain (3) Dyspnea (4) Confusion Pertinent Non-Medical Issues Psychosocial: Patient is originally from [place], [place]. His parents are ; he has/had 3 siblings (Anay, Josefa, Tigre). He moved to [place] in 2012. Patient is . Patient has 1 son, Rickey malone, who is the healthcare proxy decision-make Spiritual: Raised pentecostalism Legal: Per orders statutes, in the absence of written advanced directives healthcare proxy decision-making falls to the patient's son. Ethical issues impacting care: No known ethical issues impacting care. . Important Contacts Rickey Forrest III, son: [phone] (Son DOES WISH to serve has health care proxy). Anayevan Blount, sister: ([place]) [phone] Josefa Villa, sister: [phone] Tigre Forrest, sister: [phone] . Prognosis Patient is a 57 year old male patient with a history of liver disease with ascites requiring paracentesis secondary to EtOH abuse. Currently admitted with sepsis/bacterial peritonitis/pneumonia with pleural effusions, encephalopathy and atrial fibrillation with RVR. S/P intubation, chest tubes x 2 , and multiple paracenteses. Patient is extremely debilitated. Prognosis is poor. . Code Status: No Code Plan * NO CODE * Decision-making: Per [place] statutes, in the absence of written advanced directives healthcare proxy decision-making falls to the patient's son Rickey malone. Risa Pena is NOT the patient's and should not be included in any medical decision making. HCP: Rickey Forrest III, son: [phone] * Symptom management - secretions, dyspnea, pain: Respirations elevated in the 30s-40s with coarse air exchange, excessive secretions. Nurse notified; patient received IV furosemide 20mg and IV hyoscyamine 0.25 mg at 1134. Otherwise, patient showing no nonverbal signs/symptoms of distress. He remains on a Fentanyl drip and is scheduled Lorazepam q4 hours. PRN fentanyl and lorazepam are also available. * Patient has orders to be transferred to medical floor. * Spoke to patient's son, Rickey Forrest III, who is considering hospice for symptom management and EOL care. * Hospice consult placed. * Discussed with Dr. Guido. Notified patient's nurse (Lesley), case management (Jeannette) and hospice admission nurse (Afia). Report given to [facility] intake. . Attestation To help prompt me to consider important information that might be impacting today's encounter and assessment, information from prior notes written by myself or my colleagues may have been "brought forward" into today's note. My signature on this note, however, is an attestation that I personally performed the exam, history, and/or decision-making noted today, and, unless otherwise indicated, the interactions with patient, family, and staff as well as the review of records all occurred today. I also attest that the listed assessment and stated plan reflect my best clinical judgment today based on the combination of historical information, prior notes, and today's exam/ interactions. When time spent is documented, it refers only to time spent today by the signer, or if indicated, combined time spent today by collaborating physician/nurse practitioner. . Adina Gonzalez May 11, 2017 12:14
--- NOTE | 2017-06-09 06:59 | HHI.DS ---
Discharge Summary Admission Date Apr 20, 2017 at 16:52 Admitting Diagnosis sepsis, failure to thrive, dehydration, A. fib with RVR (1) Ascites ICD Code: R18.8 - Other ascites Status: Acute (2) Atrial fibrillation with RVR ICD Code: I48.91 - Atrial fibrillation with rapid ventricular response Status: Acute (3) Pneumonia ICD Code: J18.9 - Pneumonia, unspecified organism Status: Acute (4) Protein calorie malnutrition ICD Code: E46 - Unspecified protein-calorie malnutrition Status: Acute (5) HTN (hypertension) ICD Code: I10 - Essential (primary) hypertension Status: Chronic Procedures Paracentesis Thoracentesis Right pigtail chest tube placement Brief History Written by LOS Smith acting as scribe for [Pearl] on 04/20/17 at 21: 52. 57 y/o male with a history of central pontine myelinolysis, Afib, HTN, cirrhosis , and arthritis was brought to the ED by his for poor appetite for 2-3 days , ascites, and diarrhea. Patient states his abdomen is swelling and he has no appetite. He also has associated left abdominal pain near hernia, diarrhea, dark in color. Denies chest pain, sob, fever, chills. is currently not at bedside. Patient is somewhat of a poor historian and is not so sure about some parts of his medical history. He states he knows everything. In the emergency room at triage, patient was found to have A. fib with RVR. Patient does have history of atrial fibrillation. He was therefore started on Cardizem drip in ER. He was also given IV fluids 2 L normal saline bolus in ER for possible sepsis workup. At the time of our exam, patient is lying in bed but noted to be tachycardic around 140 while on Cardizem drip of 15. He also has prominent carotid pulsations with positive JVD. He denies significant shortness of breath but he apparently is speaking in short sentences as well. Significant Findings End-stage liver disease Imaging Last Impressions Chest X-Ray 05/11/17 0600 Signed Impressions: Service Date/Time: Thursday, May 11, 2017 04:55 - CONCLUSION: 1. Interval extubation. Basilar air space consolidation slightly improved from May 06 comparison. Bilateral chest tubes remain. Rickey Michael MD Upper Extremity Ultrasound 8/22/17 0000 Signed Impressions: Service Date/Time: Wednesday, May 10, 2017 14:11 - CONCLUSION: 1. Right basilic vein occlusive thrombus is identified. Watson Bermeo MD Abdomen X-Ray 05/09/17 Signed Impressions: Service Date/Time: Tuesday, May 09, 2017 11:51 - CONCLUSION: No dilated loops of bowel. Kwaku Rosario Jr., MD Lower Extremity Ultrasound 05/02/17 Signed Impressions: Service Date/Time: Tuesday, May 02, 2017 22:03 - CONCLUSION: The study is negative for deep venous thrombosis bilateral lower extremity. Kwaku Haro MD Brain MRI 04/29/17 Signed Impressions: Service Date/Time: Saturday, April 29, 2017 10:08 - CONCLUSION: 1. No evidence of acute infarct, hemorrhage, mass or edema. 2. No evidence of pontine myelinolysis. 3. 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 Escobar Antony MD Chest Tube Insertion 04/28/17 1555 Signed Impressions: Service Date/Time: April 15:51 - CONCLUSION: Uncomplicated chest tube placement as above. Escobar Antony MD Chest CT 04/28/17 Signed Impressions: Service Date/Time: April 15:51 - CONCLUSION: 1. Bilateral pleural effusions as described. 2. Extensive patchy consolidating infiltrates both lungs. 3. Cardiomegaly. 4. Ascites. Escobar Antony MD Cyst Biopsy Asp-Paracentesis US 04/21/17 Signed Impressions: Service Date/Time: April 11:07 - CONCLUSION: Uncomplicated ultrasound guided paracentesis. Please note that the fluid throughout the abdomen is extremely complex with septations. This can be seen when the fluid has become infected or is complicated by hemorrhage or malignancy. Muhstaq Alexis MD Abdomen/Pelvis CT 04/20/17 Signed Impressions: Service Date/Time: Thursday, April 20, 2017 13:56 - CONCLUSION: 1. Moderate volume free fluid in the abdomen and pelvis with possible associated peritoneal thickening. Thickening of the peritoneal lining can be seen with infection. 2. Large right and moderate size left pleural effusion with associated compressive atelectasis. 3. There is an umbilical hernia containing fluid and fat and fluid containing hernia superior and to the left of the umbilicus. This hernia also contains a portion of the transverse colon. 4. Nonacute findings include changes related to chronic liver disease including recanalized paraumbilical vein and bilateral gynecomastia. 5. Other nonacute findings include cholelithiasis and moderate atherosclerotic disease. Mushtaq Alexis MD PE at Discharge GENERAL: 57-year-old male, critically ill CARDIOVASCULAR: IRR. S1, S2 no S4. RESPIRATORY: Diminished breath sounds throughout. GASTROINTESTINAL: Abdomen distended. No bowel sounds appreciated MUSCULOSKELETAL: right forearm with some swelling and erythema NEURO: Extubated unresponsive Transfer Summary Neuro/Psych Toxic Metabolic encephalopathy Hx of ETOH abuse History of central pontine myelinolysis with quadriparesis Lorazepam and fentanyl for comfort measures at the present time CVS Atrial fibrillation with RVR - currently normal sinus rhythm Off all prior cardiac medications. Furosemide 20 mg IV every 6 hours. 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 Endocrine/FEN: HYPERKALEMIA No further lab draws Heme Anemia Coagulopathy Thrombocytopenia Right upper extremity superficial thrombosis basilic/cephalic veins No indications for transfusion of blood products ID: MSSA bacteremia Spontaneous bacterial peritonitis Antibiotic have been discontinued Patient to transfer to [facility] Course History of Present Illness Mr. Forrest is a 56 year old male patient with cirrhosis secondary to hepatitis C and alcohol dependence, atrial fibrillation, hypertension, GERD, sleep apnea, history of central pontine myelinolysis,ascites requiring paracentesis who admitted to [facility] with on 04/20/2017 for evaluation of decreased oral intake, probable sepsis and ascites. An EKG on admission showed atrial fibrillation with RVR. His initial WBC count was 15K. Infectious disease was consulted and patient was placed on broad-spectrum antibiotic. Recently underwent paracentesis by IR on 04/21/17 with the fluid was described as loculated and septated. Fluid culture grew MSSA. 3 out of 4 blood cultures on 04/20/17 growing MSSA. For Atrial fibrillation with RVR patient was placed on Cardizem drip. Paracentesis on 04/21/2017 650 ccfluid removed. Peritoneal WBC - [id number]; peritoneal RBC - 411. Patient had been receiving Ancef and vancomycin per ID recommendation Critical care medicine was consulted today a.m. as patient was increasingly short of breath and dyspneic and hypoxemic. Patient was placed on BiPAP 15/7 at 80% oxygen. I immediately evaluated the patient he appeared to be in moderate to severe distress. Bedside ultrasound showed large right-sided pleural effusion. I gave him 25 g of albumin and performed thoracentesis with 2 L of fluid removal. Chest x-ray postprocedure showed significant clearing of the right lung field but increased edema involving the left lung field. It is possible that patient has developed reexpansion pulmonary edema, I gave him 2 mg of IV bumex. Repeat Chest x-ray continues to show bilateral pulmonary edema , I have signed out this case to Dr. Bob who will most likely intubated the patient. Subjective subjective: 04/26: The patient required intubation, due to hypoxemic respiratory failure last a.m.. Patient still requires has high oxygen and ventilatory requirements,PEEP increased to 10. Aggressive diuresis continues. The patient converted to normal sinus rhythm yesterday afternoon amiodarone has been discontinued Cardizem has been discontinued. The patient continues on metoprolol twice a day. 04/27: Decreased urinary output overnight. Bumex 1 mg/hour instituted. Plan for repeat paracentesis procedure. The patient remains normal sinus rhythm. 04/28: Afebrile. Paracentesis today only 300 cc. Possibly slightly loculated. Weaning back loop diuretic in light of worsening renal function. Plan for right-sided pigtail catheter for recurrent pleural effusion. In attempt to wean off ventilator. Tolerating tube feeding at 10 cc an hour 04/29: Patient had a IR placed 10 [place]riot chest tube on the right side with 1.7 L drained. Urine output 3.3 L in 24 hours. Remains severely encephalopathic. Bedside US shows moderate L effusion 81/2: Remains intubated. Developed Afib with RVR, rate 150-160. Cardizem gtt after 20 mg IVP with no improvement. Metoprolol 5 mg IVPx1. Start Amiodarone if not improved (already on full anticoagulation. Chest x-ray today shows bilateral pigtail chest tubes in place and tiny right apical pneumothorax (R pigtail was placed by radiology). Patient remains encephalopathy despite being off sedation 05/02: Remains intubated, off sedation. More awake. Weakly following x4. UO 800 ml in 24 hours. Give 2 mg IV Bumex. Change Amio to PO 05/03: Continues to spike high fever 102.5. CXR despite bilateral chest tube and 1.6L output in 24 hours shows R> L consolidation/effusion. Creat worsening. Will hold Diuretics. Send sputum and blood cultures, give single dose of vanc and cefepime. D/W Dr. Gonzalez. Hb 6.9, will give 1U PRBC. Platelet count steadily improving 94 today 05/04: Continues to spike fever 101.5. Not tolerating CPAP. Back to Afib with RVR. Chest tube output 1.3L combined. Creat 2.5, UO 580 ml in 24 hours. Consult nephrology. Doubt successful vent weaning without trach. Will also consult nephrology 05/05: Remains on Cardizem and amiodarone infusions for atrial fibrillation, remains also on IV heparin. Hemoglobin has dropped to 7.1 I will give 1 unit PRBC transfusion. Chest x-ray unchanged. Bilateral chest tubes with 1.5 mg in 24 hours. Creatinine worsening to 2.8 urine output is 900 mL in 24 hours. Nephrology consulted and they have started Bumex 2 mg IV every 12 05/06: Extubated yesterday but had to be reintubated due to lack of airway protection and hypoxemia around 2 AM today. Creatinine is worsening 3.4 today urine output decreasing 750 mL in 24 hours. Discussed with nephrology Dr. Garcia- recommends Bumex gtt 2 mg per hour for 24 hours, and start dialysis if significant fluid cannot be achieved. Chest x-ray shows persistent bilateral effusions despite chest tube and scheduled Bumex. Overall prognosis is poor, family arriving to [facility] next week. Neurologically patient is following commands with bilateral upper extremities 05/07 Creatinine worsening and worsening oliguria despite Bumex drip with urine output only 250 mLs last 24 hour. Afebrile. In sinus rhythm rate in 50s. Discontinuing amiodarone drip. Moves hands and toes bilaterally to command 05/08 Oliguric with urine output 125 last 24 hours. Creatinine continues to increase to 4.26. Potassium is 5.4 today. It is inevitable that patient will need dialysis but family is hoping to wait on decision until they are able to meet together tomorrow morning as they are also placing consideration toward hospice. They are aware decision could be made to start dialysis and that it could be stopped at a later point if desired. They are aware potassium could increase and decision may need to be made urgently. Medically treating hyperkalemia and will assess response. 05/09 Renal function continues to worsen. Cr 4.81, potassium 5.2 with medical treatment. Family meeting today and son would like to hold off on dialysis. He is considering hospice care. He does want to continue full code status. 05/10: Afebrile. Positive BM via fecal containment device. Tube feeds not yet resumed. Family to discuss withdrawal care today 05/11: Afebile. Family decided to withdraw care yesterday. Extubated. Bilateral chest tubes remain. Pt Condition on Discharge: Deteriorating Discharge Disposition: Hospice/Med Facility Discharge Instructions DIET: Follow Instructions for: As Tolerated, No Restrictions Speech Therapy-Diet Recommends: Other Activities you can perform: Continue Maximilianot Jignesh Guido MD Jun 09, 2017 06:59
== END 2017-05-11 22:00 | disposition hospice, inpatient (51) | DRG 870 ==
LOC: NEPE 10:07 → NEDA 16:52 → HCIS 22:18 → HIME 04-21 17:30
PROVIDERS: ADMIT Anesthesiology; ATTEND Anesthesiology
PROC: 3E0F7GC Introduction of Other Therapeutic Substance into Respiratory Tract, Via Natural or Artificial Opening (ICD-10-PCS; principal; 2017-04-20)
PROC: 0T9B70Z Drainage of Bladder with Drainage Device, Via Natural or Artificial Opening (ICD-10-PCS; 2017-04-20)
PROC: 0W9G3ZX Drainage of Peritoneal Cavity, Percutaneous Approach, Diagnostic (ICD-10-PCS; 2017-04-21)
PROC: 5A1955Z Respiratory Ventilation, Greater than 96 Consecutive Hours (ICD-10-PCS; 2017-04-25)
PROC: 0W993ZZ Drainage of Right Pleural Cavity, Percutaneous Approach (ICD-10-PCS; 2017-04-25)
PROC: 0BH17EZ Insertion of Endotracheal Airway into Trachea, Via Natural or Artificial Opening (ICD-10-PCS; 2017-04-25)
PROC: 0W9G3ZX Drainage of Peritoneal Cavity, Percutaneous Approach, Diagnostic (ICD-10-PCS; 2017-04-28)
PROC: 0W9930Z Drainage of Right Pleural Cavity with Drainage Device, Percutaneous Approach (ICD-10-PCS; 2017-04-28)
PROC: 0W9B30Z Drainage of Left Pleural Cavity with Drainage Device, Percutaneous Approach (ICD-10-PCS; 2017-04-29)
PROC: 30233N1 Transfusion of Nonautologous Red Blood Cells into Peripheral Vein, Percutaneous Approach (ICD-10-PCS; 2017-05-03)
PROC: 0BH17EZ Insertion of Endotracheal Airway into Trachea, Via Natural or Artificial Opening (ICD-10-PCS; 2017-05-06)
PROC: 5A1945Z Respiratory Ventilation, 24-96 Consecutive Hours (ICD-10-PCS; 2017-05-06)
DX: A41.01 Sepsis due to Methicillin susceptible Staphylococcus aureus (principal); J96.01 Acute respiratory failure with hypoxia; N17.0 Acute kidney failure with tubular necrosis; G92 Toxic encephalopathy; G82.50 Quadriplegia, unspecified; J18.9 Pneumonia, unspecified organism; J90 Pleural effusion, not elsewhere classified; E44.0 Moderate protein-calorie malnutrition; K65.2 Spontaneous bacterial peritonitis; I82.621 Acute embolism and thrombosis of deep veins of right upper extremity; K76.6 Portal hypertension; G37.2 Central pontine myelinolysis; J98.11 Atelectasis; D68.4 Acquired coagulation factor deficiency; F10.239 Alcohol dependence with withdrawal, unspecified; K56.7 Ileus, unspecified; I95.9 Hypotension, unspecified; K70.31 Alcoholic cirrhosis of liver with ascites; F10.96 Alcohol use, unspecified with alcohol-induced persisting amnestic disorder; I48.2 Chronic atrial fibrillation; I10 Essential (primary) hypertension; R62.7 Adult failure to thrive; E86.0 Dehydration; B19.20 Unspecified viral hepatitis C without hepatic coma; K42.9 Umbilical hernia without obstruction or gangrene; R00.0 Tachycardia, unspecified; M19.90 Unspecified osteoarthritis, unspecified site; K21.9 Gastro-esophageal reflux disease without esophagitis; G47.30 Sleep apnea, unspecified; K43.9 Ventral hernia without obstruction or gangrene; R19.7 Diarrhea, unspecified; R65.20 Severe sepsis without septic shock; K80.20 Calculus of gallbladder without cholecystitis without obstruction; E87.70 Fluid overload, unspecified; Z87.891 Personal history of nicotine dependence; N62 Hypertrophy of breast; Z51.5 Encounter for palliative care; K31.89 Other diseases of stomach and duodenum; Z83.3 Family history of diabetes mellitus; D64.9 Anemia, unspecified; D69.59 Other secondary thrombocytopenia; Z68.20 Body mass index [BMI] 20.0-20.9, adult; E87.6 Hypokalemia; R56.9 Unspecified convulsions; E83.39 Other disorders of phosphorus metabolism; I80.9 Phlebitis and thrombophlebitis of unspecified site; Y95 Nosocomial condition; E87.5 Hyperkalemia; L98.499 Non-pressure chronic ulcer of skin of other sites with unspecified severity
CPT/HCPCS: 31500; 32551; 32554; 32557; 36430; 36600; 49082; 49083; 70553; 71010; 71250; 74000; 74176; 76937; 80048; 80053; 80202; 81001; 82042; 82105; 82140; 82150; 82272; 82550; 82552; 82565; 82805; 82945; 83605; 83615; 83690; 83735; 83986; 84100; 84132; 84157; 84315; 84439; 84443; 85007; 85014; 85018; 85025; 85027; 85384; 85610; 85652; 85730; 86022; 86403; 86850; 86900; 86901; 86920; 87015; 87040; 87070; 87077; 87086; 87102; 87116; 87147; 87186; 87205; 87206; 87493; 87522; 87641; 87902; 89051; 93005; 93306; 93970; 93971; 94002; 94003; 94150; 94640; 94664; 96361; 96365; 96374; 96375; A9579; C1729; C1769; C9113; J0171; J0282; J0330; J0461; J0610; J0690; J0692; J1160; J1644; J1650; J1815; J1940; J1980; J2060; J2270; J2543; J3010; J3370; J3475; J3480; J7030; J7050; J7060; J7613; P9016; P9021; P9045; P9047